=== PATIENT | female | born 1985 | race Caucasian/White ===

== ENCOUNTER 2020-12-17 19:10 | Emergency (ER) | payer MEDICAID, SELFPAY ==
[2020-12-17] VITALS (7 sets, daily range): BP systolic 102–152; BP diastolic 66–96; PULSE 77–103; RESP 16–18; TEMP 36.8; O2SAT 95–100; BMI 32.3
--- NOTE | 2020-12-17 21:28 | CTR_ITS ---
PROCEDURE INFORMATION: Exam: CT Head Without Contrast Exam date and time: 12/17/2020 9:28 PM Age: 35 years old Clinical indication: Headache; Migraine; Aura effect not specified; Does not respond to medication; Severity not specified; Patient HX: C/O R sided DONALD w photophobia and eye pain TECHNIQUE: Imaging protocol: Computed tomography of the head without contrast. Radiation optimization: All CT scans at this facility use at least one of these dose optimization techniques: automated exposure control; mA and/or kV adjustment per patient size (includes targeted exams where dose is matched to clinical indication); or iterative reconstruction. COMPARISON: No relevant prior studies available. RADIATION DOSE METRICS: Total DLP (mGy-cm): 908.01 FINDINGS: Brain: Normal. No hemorrhage. Unremarkable white matter. No mass effect. Cerebral ventricles: No ventriculomegaly. Paranasal sinuses: Paranasal sinus opacifications. Mastoid air cells: Visualized mastoid air cells are well aerated. Bones/joints: Unremarkable. No acute fracture. Soft tissues: Scattered rounded lesions in the subcutaneous fat measuring up to 14 mm with some calcifications suggestive of benign sebaceous cysts. CT/CT head wo con* [id number] IMPRESSION: Negative for intracranial hemorrhage or mass effect Radiation Dose CTDIVOL = (mGy): DLP = 908.01 (mGy-cm)
--- NOTE | 2020-12-17 21:54 | W.ED.HA ---
HPI - Headache General: Chief Complaint: Headache Stated Complaint: fever, n/v, migraine Time Seen by Provider: 12/17/20 21:11 History of Present Illness: HPI Narrative: 35-year-old female presents with 3 days of headache, behind her right eye. She reports she does not usually have headaches like this. She says she feels flushed, like she has a fever. She has been nauseated. She has not vomited. No diarrhea. No cough. She is light and sound sensitive. MD elicited complaint: headache and migraine Onset (ago): day(s) (3) Onset description: gradually Location: right, frontal, temporal and retro-orbital Severity: moderate Quality & Timing: throbbing Exacerbating factors: light and noise Relieving factors: nothing Context: occurred at rest Associated symptoms: Reports diaphoresis, fever(s) (Subjective), malaise, nausea and photophobia; Deny chest pain, confusion, cough, eye pain, eye redness, lightheadedness, loss of vision, neck stiffness, paresthesias, short of breath, syncope, vomiting or weakness Treatments prior to arrival: other (Aleve) Review of Systems Const: Reports: fever(s) (Subjective), malaise and diaphoresis Eyes: Denies: change in vision ENMT: Denies: throat pain, hoarseness or nasal congestion Card: Denies: chest pain, lightheadedness or syncope Resp: Denies: dyspnea, productive cough or non-productive cough GI: Reports: nausea; Denies: vomiting : Denies: difficulty voiding Neuro: Denies: confusion Physical Exam Const: GENERAL APPEARANCE: well developed ORIENTATION/CONSCIOUSNESS: Yes oriented to person, Yes oriented to place and Yes oriented to time HENMT: COMMON NORMALS: normocephalic, external ears normal and Normal external nose present HEAD & SCALP: normocephalic FACE & SINUS: normal facial exam NOSE: Normal external nose present and No nasal discharge present EXTERNAL EAR: Yes external ears normal Eye: COMMON NORMALS: Equal, round and reactive pupils present, EOMs intact bilaterally and conjunctivae normal EYELID: eyelids normal CONJUNCTIVA: Yes conjunctivae normal PUPIL: Yes Equal, round and reactive pupils present DIRECT OPHTHALMOSCOPY: Yes photophobia Neck/C-Spine: COMMON NORMALS: full ROM GENERAL: No tracheal deviation Chest: COMMONS NORMALS: normal inspection of the chest CHEST: No tenderness Resp: COMMON NORMALS: clear to auscultation bilaterally EFFORT & INSPECTION: No tachypneic, No respiratory distress, No retractions, No uses accessory muscles and No tracheal deviation AUSCULTATION: clear to auscultation bilaterally, no rhonchi, no wheezes and lung sounds not diminished Cardio: COMMON NORMALS: regular rate and regular rhythm RATE: regular rate RHYTHM: regular rhythm HEART SOUNDS: no murmurs PERIPHERAL PULSES: radial pulses present GI: INSPECTION: No abdominal distension AUSCULTATION: No Hyperactive bowel sounds present and No Hypoactive bowel sounds present PALPATION: No Guarding due to palpation present (GI) and No Rigid due to palpation PERCUSSION: no dullness to percussion and no tympanic to percussion Neuro: SENSORIUM/ORIENTATION: Yes oriented to person, Yes oriented to place and Yes oriented to time Psych: COMMON NORMALS: mental status grossly normal Skin: COMMON NORMALS: no rashes or lesions noted GENERAL SKIN EXAM: no rashes or lesions noted Course Vital Signs: Vital signs: Vital Signs Temperature 98.2 F 12/17/20 19:36 Pulse Rate 77 12/17/20 23:30 Respiratory Rate 16 12/17/20 23:30 Blood Pressure 102/66 12/17/20 23:30 Pulse Oximetry 97 12/17/20 23:30 MDM - Headache MDM Narrative: Medical decision making narrative: 35-year-old with a headache. She is neurologically intact. Headache improved after migraine cocktail here. White blood cell count is mildly elevated. Her hemoglobin is elevated as well. Other laboratory is benign. Head CT is nonacute. She will be swabbed for COVID-19, and discharged home. Lab Data: Labs: Lab Results 12/17/20 12/17/20 12/17/20 Range/Units 21:18 21:18 21:18 WBC 11.2 H (4.0-10.0) 10^3/ uL RBC 5.80 H (4.1-5.3) 10^6/u L Hgb 16.6 H (11.5-15.3) g/dL Hct 51.2 H (37.0-47.0) % MCV 88.3 (81-99) fL MCH 28.6 (28.0-34.0) pg MCHC 32.4 (30.0-36.0) g/dL RDW 12.4 (12.1-15.1) % Plt Count 379 (130-400) 10^3/c mm MPV 9.6 (7.4-10.4) fL Neut % (Auto) 58.9 % Lymph % (Auto) 33.2 % [place] % (Auto) 5.2 % Eos % (Auto) 1.9 % Baso % (Auto) 0.4 % Neut # (Auto) 6.62 (1.8-7.7) 10^3/u L Lymph # (Auto) 3.7 (0.8-4.8) 10^3/u L [place] # (Auto) 0.6 (0.2-0.9) 10^3/u L Eos # (Auto) 0.2 (0.0-0.8) 10^3/u L Baso # (Auto) 0.1 (0.0-0.1) 10^3/u L Nucleated RBC % (a uto) 0 % Nucleated RBCs # 0.0 /100WBC Sodium 135 L (136-145) mmol/L Potassium 4.4 (3.5-5.1) mmol/L Chloride 100 (98-107) mmol/L Carbon Dioxide 23 (22-29) mmol/L Anion Gap 16.4 (5-19) BUN 10 (6-20) mg/dL Creatinine 0.4 L (0.5-0.9) mg/dL GFR Calculation 183.8 H (90-130) mL/min Glucose 322 H (65-115) mg/dL Calculated Osmolal ity 291 (285-295) mOsm/k g Calcium 9.6 (8.5-10.5) mg/dL Total Bilirubin 0.2 (0.15-1.2) mg/dL AST 17 (0-32) U/L ALT 33 (0-33) U/L Alkaline Phosphata se 88 (35-105) IU/L C-Reactive Protein 29.6 H (0.0-4.9) mg/L Total Protein 8.1 (6.6-8.7) g/dL Albumin 4.4 (3.5-5.2) g/dL Globulin 3.7 (1.3-4.6) g/dL HCG, Qual Negative (Negative) Urine Color (Yellow) Urine Appearance (CLEAR) Urine pH (5-7) Ur Specific Gravit y (1.005-1.030) Urine Protein (Negative) Urine Glucose (UA) (Normal) Urine Ketones (Negative) Urine Blood (Negative) Urine Nitrate (Negative) Urine Bilirubin (Negative) Urine Urobilinogen (Negative) mg/dL Ur Leukocyte Andree ase (Negative) Urine RBC (0-2) /hpf Urine WBC (0-5) /hpf Ur Squamous Epith Cells (0-5) /hpf Amorphous Sediment Urine Bacteria (NONE) /hpf Urine Yeast /hpf Urine Opiates Scre en (Negative) ng/mL Ur Barbiturates Sc reen (Negative) ng/mL Ur Phencyclidine S crn (Negative) ng/mL Ur Amphetamines Sc reen (Negative) ng/mL U Benzodiazepines Scrn (Negative) ng/mL Urine Cocaine Scre en (Negative) ng/mL U Marijuana (THC) Screen (Negative) ng/mL 12/17/20 12/17/20 Range/Units 22:27 22:27 WBC (4.0-10.0) 10^3/ uL RBC (4.1-5.3) 10^6/u L Hgb (11.5-15.3) g/dL Hct (37.0-47.0) % MCV (81-99) fL MCH (28.0-34.0) pg MCHC (30.0-36.0) g/dL RDW (12.1-15.1) % Plt Count (130-400) 10^3/c mm MPV (7.4-10.4) fL Neut % (Auto) % Lymph % (Auto) % [place] % (Auto) % Eos % (Auto) % Baso % (Auto) % Neut # (Auto) (1.8-7.7) 10^3/u L Lymph # (Auto) (0.8-4.8) 10^3/u L [place] # (Auto) (0.2-0.9) 10^3/u L Eos # (Auto) (0.0-0.8) 10^3/u L Baso # (Auto) (0.0-0.1) 10^3/u L Nucleated RBC % (a uto) % Nucleated RBCs # /100WBC Sodium (136-145) mmol/L Potassium (3.5-5.1) mmol/L Chloride (98-107) mmol/L Carbon Dioxide (22-29) mmol/L Anion Gap (5-19) BUN (6-20) mg/dL Creatinine (0.5-0.9) mg/dL GFR Calculation (90-130) mL/min Glucose (65-115) mg/dL Calculated Osmolal ity (285-295) mOsm/k g Calcium (8.5-10.5) mg/dL Total Bilirubin (0.15-1.2) mg/dL AST (0-32) U/L ALT (0-33) U/L Alkaline Phosphata se (35-105) IU/L C-Reactive Protein (0.0-4.9) mg/L Total Protein (6.6-8.7) g/dL Albumin (3.5-5.2) g/dL Globulin (1.3-4.6) g/dL HCG, Qual (Negative) Urine Color Yellow (Yellow) Urine Appearance Sl cloudy A (CLEAR) Urine pH 5 (5-7) Ur Specific Gravit y 1.020 (1.005-1.030) Urine Protein 1+ H (Negative) Urine Glucose (UA) 4+ H (Normal) Urine Ketones 1+ H (Negative) Urine Blood Neg (Negative) Urine Nitrate Negative (Negative) Urine Bilirubin Neg (Negative) Urine Urobilinogen Norm (Negative) mg/dL Ur Leukocyte Andree ase Negative (Negative) Urine RBC 0-4 H (0-2) /hpf Urine WBC 0-4 H (0-5) /hpf Ur Squamous Epith Cells >100 H (0-5) /hpf Amorphous Sediment Not Reportable Urine Bacteria 3+ H (NONE) /hpf Urine Yeast 1+ H /hpf Urine Opiates Scre en Negative (Negative) ng/mL Ur Barbiturates Sc reen Negative (Negative) ng/mL Ur Phencyclidine S crn Negative (Negative) ng/mL Ur Amphetamines Sc reen Negative (Negative) ng/mL U Benzodiazepines Scrn Negative (Negative) ng/mL Urine Cocaine Scre en Negative (Negative) ng/mL U Marijuana (THC) Screen Negative (Negative) ng/mL Discharge Plan Discharge Patient Disposition: Home Clinical Impression: Headache Qualifiers: Headache type: unspecified Headache chronicity pattern: acute headache Intractability: not intractable Qualified Code(s): R51.9 - Headache, unspecified Condition: Stable Discharge Orders: Discharge ED (Routine); Ordered 12/17/20 Ordered By: Simba Huggins Referrals: Kasey Naqvi DO [Primary Care Provider] - 4-7 days Discharge Diet: Advance as tolerated Discharge Activity: Limit activity as instructed Patient Instructions: Acute Headache (ED) Activity Restrictions/Additional Instructions: Quarantine at home until you are COVID-19 PCR test results are back and negative. Drink plenty of liquids. Watch for fever, and treat with Tylenol or ibuprofen. Return for any concerning symptoms. Coding Level of Care Code ED Medical Collections for Rachelg Fwd Exam Comprehensive
[2020-12-17] MEDS: ketorolac 30 mg/mL INJ 15 MG IVP (21:55)
[2020-12-17] MEDS: ondansetron 2 mg/ML SDV 2 mL 4 MG IVP (21:57)
[2020-12-17] MEDS: valproic acid inj 500 MG in sodium chloride 0.9% 50 ML 55 MG IV (21:59)
[2020-12-17 22:07] LABS: Basophils # 0.1 10^3/uL (0.0-0.1); Basophils % 0.4 %; Eosinophils # 0.2 10^3/uL (0.0-0.8); Eosinophils % 1.9 %; HCG, Serum Qual Negative (Negative); Hematocrit 51.2 % (37.0-47.0); Hemoglobin 16.6 g/dL (11.5-15.3); Lymphocytes # 3.7 10^3/uL (0.8-4.8); Lymphocytes % 33.2 %; Mean Corpuscular HGB Conc 32.4 g/dL (30.0-36.0); Mean Corpuscular Hemoglobin 28.6 pg (28.0-34.0); Mean Corpuscular Volume 88.3 fL (81-99); Mean Platelet Volume 9.6 fL (7.4-10.4); Monocytes # 0.6 10^3/uL (0.2-0.9); Monocytes % 5.2 %; Neutrophils # 6.62 10^3/uL (1.8-7.7); Neutrophils % 58.9 %; Nucleated Red Blood Cells % 0 %; Platelet Count 379 10^3/cmm (130-400); Red Cell Distribution Width 12.4 % (12.1-15.1); White Blood Count 11.2 10^3/uL (4.0-10.0)
[2020-12-17 22:17] LABS: Alanine Aminotransferase 33 U/L (0-33); Albumin Level 4.4 g/dL (3.5-5.2); Alkaline Phosphatase 88 IU/L (35-105); Anion Gap 16.4 (5-19); Aspartate Amino Transferase 17 U/L (0-32); Blood Urea Nitrogen 10 mg/dL (6-20); C Reactive Protein 29.6 mg/L (0.0-4.9); Calcium 9.6 mg/dL (8.5-10.5); Carbon Dioxide 23 mmol/L (22-29); Chloride 100 mmol/L (98-107); Globulin 3.7 g/dL (1.3-4.6); Glomerular Filtration Rate 183.8 mL/min (90-130); Glucose 322 mg/dL (65-115); Osmolality Calculated 291 mOsm/kg (285-295); Potassium 4.4 mmol/L (3.5-5.1); Sodium 135 mmol/L (136-145); Total Bilirubin 0.2 mg/dL (0.15-1.2); Total Protein 8.1 g/dL (6.6-8.7)
[2020-12-17 22:54] LABS: Add Urine Microscopic? YES; Bilirubin Urine Neg (Negative); Blood Urine Neg (Negative); Glucose Urine UA 4+ (Normal); Ketones Urine 1+ (Negative); Leukocyte Esterase Urine Negative (Negative); Nitrate Urine Negative (Negative); Protein Urine 1+ (Negative); Urine Color Yellow (Yellow); Urobilinogen Urine Norm (Negative); pH Urine 5 (5-7)
[2020-12-17 22:56] LABS: Amphetamines Screen Urine Negative (Negative); Barbiturates Screen Urine Negative (Negative); Benzodiazepines Screen Urine Negative (Negative); Cocaine Screen Urine Negative (Negative); Opiate Screen Urine Negative (Negative); PCP Screen Urine Negative (Negative); THC Screen Urine Negative (Negative)
[2020-12-17 22:58] LABS: Add Urine Culture? No; Bacteria Urine 3+ /hpf; RBC Urine 0-4 /hpf (0-2); Squamous Epithelial Cell Urine >100 /hpf (0-5); WBC Urine 0-4 /hpf (0-5)
[2020-12-17] MEDS: sodium chloride 0.9% 1,000 ML 999 ML IV (23:00)
[2020-12-22 09:22] LABS: Quest SARS-CoV-2 RNA NOT DETECTED (NOT DETECTED)
== END 2020-12-17 23:37 | disposition home or self-care (01) ==
PROVIDERS: Emergency Provider Emergency Medicine; PCP Family Medicine
DX: R51.9 Headache, unspecified (principal); Z20.822 Contact with and (suspected) exposure to COVID-19
CPT/HCPCS: 70450; 80053; 80306; 81001; 84703; 85025; 86140; 87635; 96365; 96375; 99284; J1885; J2405; J7030

== ENCOUNTER → 2021-08-15 14:36 | Outpatient (BNVA) | payer MEDICAID, SELFPAY | PROVIDERS: PCP Family Medicine; Visit Provider Internal Medicine | DX: E11.65 Type 2 diabetes mellitus with hyperglycemia (principal); E78.00 Pure hypercholesterolemia, unspecified; Z82.49 Family history of ischemic heart disease and other diseases of the circulatory system; F17.210 Nicotine dependence, cigarettes, uncomplicated | CPT/HCPCS: 99204 ==

== ENCOUNTER 2021-08-18 10:07 | Outpatient (CLI) | payer MEDICAID, SELFPAY ==
[2021-08-18 11:03] LABS: Estmated Average Glucose 200; Hemoglobin A1C 8.6 % (4.0-6.0)
[2021-08-18 11:13] LABS: Alanine Aminotransferase 12 U/L (0-33); Albumin Level 4.2 g/dL (3.5-5.2); Alkaline Phosphatase 60 IU/L (35-105); Blood Urea Nitrogen 9 mg/dL (6-20); Calcium 9.4 mg/dL (8.5-10.5); Carbon Dioxide 20 mmol/L (22-29); Chloride 99 mmol/L (98-107); Chol HDL Ratio 6.35 mg/dL (0.0-4.40); Cholesterol 197 mg/dL (0-200); Globulin 3.3 g/dL (1.3-4.6); Glomerular Filtration Rate 256.2 mL/min (90-130); Glucose 211 mg/dL (65-115); HDL Cholesterol 31 mg/dL (60-100); LDL Cholesterol Calculated 136 mg/dL (50-129); LDL HDL Ratio 4.39 RATIO (0.00-3.22); Osmolality Calculated 279 mOsm/kg (285-295); Sodium 132 mmol/L (136-145); Total Bilirubin 0.2 mg/dL (0.15-1.2); Total Protein 7.5 g/dL (6.6-8.7); Triglycerides 152 mg/dL (0-150)
[2021-08-18 11:22] LABS: Anion Gap 17.3 (5-19); Aspartate Amino Transferase 15 U/L (0-32); Potassium 4.3 mmol/L (3.5-5.1)
[2021-08-22 20:33] LABS: Lipoprotein (a) 263 nmol/L (<75)
== END 2021-08-18 10:08 | disposition home or self-care (01) ==
PROVIDERS: PCP Family Medicine; Visit Provider Internal Medicine
DX: E11.65 Type 2 diabetes mellitus with hyperglycemia (principal); E78.00 Pure hypercholesterolemia, unspecified; Z82.49 Family history of ischemic heart disease and other diseases of the circulatory system
CPT/HCPCS: 80053; 80061; 83036; 83090; 83695; 86141

== ENCOUNTER → 2021-08-29 13:02 | Outpatient (BNVA) | payer MEDICAID, SELFPAY | PROVIDERS: PCP Family Medicine; Visit Provider Internal Medicine | DX: E11.65 Type 2 diabetes mellitus with hyperglycemia (principal); E78.00 Pure hypercholesterolemia, unspecified; Z82.49 Family history of ischemic heart disease and other diseases of the circulatory system; F17.200 Nicotine dependence, unspecified, uncomplicated | CPT/HCPCS: 99214 ==

== ENCOUNTER → 2021-11-30 10:55 | Outpatient (BNVA) | payer MEDICAID, SELFPAY | PROVIDERS: PCP Family Medicine; Visit Provider Family Medicine | DX: Z01.419 Encounter for gynecological examination (general) (routine) without abnormal findings (principal) | CPT/HCPCS: 87624 ==

== ENCOUNTER 2022-05-14 08:26 | Emergency (ER) | payer MEDICAID, SELFPAY ==
[2022-05-14 08:37] VITALS: BP 129/80; PULSE 96; RESP 16; TEMP 36.4; O2SAT 99; BMI 33.0
--- NOTE | 2022-05-14 09:05 | W.ED.ABDPA2 ---
HPI - Abdominal Pain General: Chief Complaint: Abdominal Pain Stated Complaint: abd pain Time Seen by Provider: 05/14/22 08:32 Source: patient Mode of arrival: ambulatory History of Present Illness: 36-year-old female presents emergency room planing of generalized abdominal discomfort nausea and vomiting with a few loose stools. She had some low-grade fever yesterday. She she has some discomfort with urination but has not had a lot of frequency. No flank pain. She denies any hematochezia melena hematemesis or coffee-ground emesis. MD elicited complaint: abdominal pain Onset (ago): day(s) Pain Consistency: constant Location: Suprapubic Severity: moderate Quality: cramping Radiation: none Migration to: no migration Exacerbating factors: other (Urination) Relieving factors: nothing Associated Symptoms: Reports GI cramping, diarrhea, dysuria, poor appetite and vomiting; Denies anorexia, belching, bloating, change in bowel habits, change in stool character, chills, coffee ground emesis, constipation, dyspepsia, excessive flatus, fever(s), heartburn, hematochezia, hematuria, hematemesis, fecal incontinence, loose stools, melena, nausea and syncope Review of Systems Const: Reports: change in appetite and fatigue; Denies: fever(s), chills or malaise ENMT: Denies: throat pain, ear or mastoid pain, nasal discharge or nasal congestion Card: Denies: chest pain, palpitations, irregular heart rhythm, edema or syncope Resp: Denies: dyspnea, productive cough or non-productive cough GI: Reports: abdominal pain, vomiting, diarrhea and GI cramping; Denies: nausea, hematemesis, coffee ground emesis, heartburn, constipation, bloating, belching, excessive flatus, fecal incontinence, change in bowel habits, change in stool character, hematochezia or melena : Reports: dysuria, urinary frequency and urinary urgency; Denies: flank pain or hematuria Skin/Breast: Denies: rash or pruritus PFSH ED PFSH: Medical History delivery delivered Diabetes type 2, uncontrolled High cholesterol Osteoarthritis of left knee Surgical History H/O tubal ligation History of delivery x 2 Family History Father Diabetes Heart disease Mother Diabetes COPD (chronic obstructive pulmonary disease) Emphysema lung Heart disease Kidney failure Arthritis Social History Smoking and tobacco status: current every day smoker Quit status (tobacco): not considering quitting Second hand smoke exposure: No Smoking risk assessment/counseling performed?: Yes Desire information about alcohol rehabilitation?: No Counseling given: No Desire information about substance/drug rehabilitation?: No Counseling given: No Adopted: No Caregiver/support person: No Lives independently: Yes Household members: children Housing: House Marital status: Number of children: 2 Highest education level completed: 9th Grade service: No Current occupational status: employed History of recent travel: No Physical Exam Const: GENERAL APPEARANCE: cooperative and comfortable ORIENTATION/CONSCIOUSNESS: Yes awake, Yes oriented to person, Yes oriented to place and Yes oriented to time Resp: COMMON NORMALS: normal respiratory effort, No retractions, No use of accessory muscles and clear to auscultation bilaterally AUSCULTATION: clear to auscultation bilaterally Cardio: COMMON NORMALS: regular rate, regular rhythm and No murmurs present (Cardio) RATE: regular rate RHYTHM: regular rhythm GI: COMMON NORMALS: No hepatosplenomegaly present AUSCULTATION: Yes normoactive bowel sounds PALPATION: Yes Tenderness to palpation present (GI) (Suprapubic), No Guarding due to palpation present (GI) and Yes No hepatosplenomegaly present : COMMON NORMALS: Yes no CVA tenderness BLADDER/KIDNEY EXAM: Yes no CVA tenderness Back/Pelvis: COMMON NORMALS: no CVA tenderness Extremity: COMMON NORMALS: normal to inspection, capillary refill normal, no clubbing, cyanosis or edema, no calf tenderness and no pedal edema Neuro: SENSORIUM/ORIENTATION: Yes oriented to person, Yes oriented to place and Yes oriented to time Skin: COMMON NORMALS: no rashes or lesions noted GENERAL SKIN EXAM: no rashes or lesions noted Course Vital Signs: Vital signs: Vital Signs Temperature 97.5 F L 05/14/22 08:37 Pulse Rate 93 05/14/22 11:03 Respiratory Rate 14 05/14/22 11:03 Blood Pressure 129/76 05/14/22 11:03 Pulse Oximetry 99 05/14/22 11:03 Oxygen Delivery Me thod 05/14/22 11:03 MDM - Abdominal Pain Medical Decision Making CT shows colitis. White count is 10 2 she has a mild hyponatremia discharge patient home clinical diet 24 to 48 hours and advance as tolerated started on Cipro and Flagyl. Lab Data 05/14/22 10:10 05/14/22 10:10 Labs/Radiology: Radiology Impressions Abdomen/Pelvis CT 05/14/22 10:32 IMPRESSION: 1. Findings suspicious for infectious or inflammatory colitis involving the RIGHT colon and transverse colon with mild thickening and surrounding inflammatory changes. Findings can also be seen with inflammatory bowel disease. This slightly involves the distal terminal ilium and ileocecal valve 2. Descending LEFT colon and sigmoid colon appear normal. 3. A few prominent lymph nodes along the mesenteric root and central mesentery likely reactive. 4. Prominent gallstone in the gallbladder measuring 2.7 CM. No gallbladder wall thickening or pericholecystic fluid. 5. No hydronephrosis in either kidney. 6. 2.9 cm RIGHT ovarian cyst likely physiologic. 7. Mild disc bulging L4-L5 with mild central canal stenosis. Laboratory Results WBC 10.2 10^3/uL (4.0-10.0) H 05/14/22 10:10 RBC 5.18 10^6/uL (4.1-5.3) 05/14/22 10:10 Hgb 14.7 g/dL (11.5-15.3) 05/14/22 10:10 Hct 44.5 % (37.0-47.0) 05/14/22 10:10 MCV 85.9 fl (81-99) 05/14/22 10:10 MCH 28.4 pg (28.0-34.0) 05/14/22 10:10 MCHC 33.0 g/dL (30.0-36.0) 05/14/22 10:10 RDW 12.9 % (12.1-15.1) 05/14/22 10:10 Plt Count 298 10^3/cmm (130-400) 05/14/22 10:10 MPV 9.1 fL (7.4-10.4) 05/14/22 10:10 Neut % (Auto) 80.4 % 05/14/22 10:10 Lymph % (Auto) 13.0 % 05/14/22 10:10 [place] % (Auto) 5.6 % 05/14/22 10:10 Eos % (Auto) 0.3 % 05/14/22 10:10 Baso % (Auto) 0.3 % 05/14/22 10:10 Neut # (Auto) 8.20 10^3/uL (1.8-7.7) H 05/14/22 10:10 Lymph # (Auto) 1.3 10^3/uL (0.8-4.8) 05/14/22 10:10 [place] # (Auto) 0.6 10^3/uL (0.2-0.9) 05/14/22 10:10 Eos # (Auto) 0.0 10^3/uL (0.0-0.8) 05/14/22 10:10 Baso # (Auto) 0.0 10^3/uL (0.0-0.1) 05/14/22 10:10 Nucleated RBC % (auto) 0 % 05/14/22 10:10 Nucleated RBCs # 0.0 /100WBC 05/14/22 10:10 Sodium 128 mmol/L (136-145) L 05/14/22 10:10 Potassium 3.6 mmol/L (3.5-5.1) 05/14/22 10:10 Chloride 95 mmol/L (98-107) L 05/14/22 10:10 Carbon Dioxide 22 mmol/L (22-29) 05/14/22 10:10 Anion Gap 14.6 (5-19) 05/14/22 10:10 BUN 7 mg/dL (6-20) 05/14/22 10:10 Creatinine 0.2 mg/dL (0.5-0.9) L 05/14/22 10:10 GFR Calculation 406.6 mL/min (90-130) H 05/14/22 10:10 Glucose 209 mg/dL (65-115) H 05/14/22 10:10 Calculated Osmolality 270 mOsm/kg (285-295) L 05/14/22 10:10 Calcium 9.0 mg/dL (8.5-10.5) 05/14/22 10:10 Total Bilirubin 0.3 mg/dL (0.15-1.2) 05/14/22 10:10 AST 11 U/L (0-32) 05/14/22 10:10 ALT 15 U/L (0-33) 05/14/22 10:10 Alkaline Phosphatase 65 U/L (35-105) 05/14/22 10:10 Total Protein 7.3 g/dL (6.6-8.7) 05/14/22 10:10 Albumin 3.9 g/dL (3.5-5.2) 05/14/22 10:10 Globulin 3.4 g/dL (1.3-4.6) 05/14/22 10:10 HCG, Qual Negative (Negative) 05/14/22 11:06 Urine Color Yellow (Yellow) 05/14/22 11:25 Urine Appearance Clear (CLEAR) 05/14/22 11:25 Urine pH 5 (5-7) 05/14/22 11:25 Ur Specific [place] 1.025 (1.005-1.030) 05/14/22 11:25 Urine Protein Neg (Negative) 05/14/22 11:25 Urine Glucose (UA) Norm (Normal) 05/14/22 11:25 Urine Ketones Negative (Negative) 05/14/22 11:25 Urine Blood Neg (Negative) 05/14/22 11:25 Urine Nitrate Negative (Negative) 05/14/22 11:25 Urine Bilirubin Neg (Negative) 05/14/22 11:25 Urine Urobilinogen Norm mg/dL (Negative) 05/14/22 11:25 Ur Leukocyte Esterase Negative (Negative) 05/14/22 11:25 Discharge Plan Discharge Patient Disposition: Home Clinical Impression: Colitis Condition: Stable Prescriptions: New Cipro 500 mg tablet 500 mg PO BID Qty: 20 0RF metronidazole 500 mg tablet 500 mg PO Q12H 10 Days Qty: 20 0RF ondansetron HCl 4 mg tablet 4 mg PO Q6H PRN (Reason: nausea and vomiting) Qty: 20 0RF No Action (DME) blood-glucose meter Misc See Rx Instructions .Route Qty: 1 0RF Rx Instructions: Check BS 2 times a day. (DME) Blood Glucose Test Strip See Rx Instructions .Route Qty: 400 3RF Rx Instructions: Check BS 2 times a day. Discharge Orders: Discharge ED (Routine); Ordered 05/14/22 Ordered By: Peña De La Garza Referrals: Kasey Naqvi DO [Primary Care Provider] - Discharge Diet: Clear Liquid Discharge Activity: Increase activity as tolerated Activity Restrictions/Additional Instructions: You were seen today for abdominal pain. CT showed colitis which is inflammation of the colon. We are starting you on ciprofloxacin and metronidazole twice daily for 10 days for this. Recommend clear liquid diet for the next 24 to 48 hours and advance as tolerated. Follow-up with your primary care doctor in the next 10 to 14 days. Coding Level of Care Code ED Motorcycle Sales Associate for Chg Fwd Exam Detailed
[2022-05-14 09:17] VITALS: BP 135/87; PULSE 103; RESP 14; O2SAT 95
[2022-05-14] MEDS: sodium chloride 0.9% 1,000 ML 999 ML IV (10:16)
[2022-05-14] MEDS: ondansetron 2 mg/ML SDV 2 mL 4 MG IVP (10:17)
[2022-05-14 10:22] LABS: Basophils % 0.3 %; Eosinophils % 0.3 %; Hematocrit 44.5 % (37.0-47.0); Hemoglobin 14.7 g/dL (11.5-15.3); Lymphocytes # 1.3 10^3/uL (0.8-4.8); Mean Corpuscular Hemoglobin 28.4 pg (28.0-34.0); Mean Corpuscular Volume 85.9 fl (81-99); Mean Platelet Volume 9.1 fL (7.4-10.4); Monocytes # 0.6 10^3/uL (0.2-0.9); Monocytes % 5.6 %; Neutrophils % 80.4 %; Nucleated Red Blood Cells % 0 %; Platelet Count 298 10^3/cmm (130-400); Red Blood Count 5.18 10^6/uL (4.1-5.3); Red Cell Distribution Width 12.9 % (12.1-15.1); White Blood Count 10.2 10^3/uL (4.0-10.0)
--- NOTE | 2022-05-14 10:32 | CT_ITS ---
WS: [id number] CT ABDOMEN PELVIS TECHNIQUE: Noncontrast CT of the abdomen and pelvis with coronal and sagittal reformatted images. CLINICAL INFORMATION: Abdominal pain COMPARISON: None. DLP: 889.[address] scans at [facility] use at least one of these dose optimization techniques: automated e xposure control; mA and/or kV adjustment per patient size (includes targeted exams where dose is matc hed to clinical indication); or iterative reconstruction. FINDINGS:. Mild colonic wall thickening with inflammatory stranding and edema about the transverse co dmitriy and RIGHT colon suspicious for infectious or inflammatory colitis. Descending LEFT colon and sigm oid colon have a normal appearance. Inflammatory stranding and thickening extends the ileocecal valve Normal appendix in the RIGHT lower quadrant. No evidence of acute appendicitis. RIGHT ovarian cyst me asuring 2.9 CM. A few prominent lymph nodes along the mesenteric root likely reactive. Bibasilar atelectasis. Normal liver. Prominent gallstone in the gallbladder measuring 2.7 CM. Splenic artery calcification. Small splenule. Adrenal glands are normal. No hydronephrosis in either kidney. Normal caliber abdominal aorta. No free fluid in the abdomen or pelvis CT/CT abdomen pelvis wo con [id number] IMPRESSION: 1. Findings suspicious for infectious or inflammatory colitis involving the RI GHT colon and transverse colon with mild thickening and surrounding inflammator y changes. Findings can also be seen with inflammatory bowel disease. This slig htly involves the distal terminal ilium and ileocecal valve 2. Descending LEFT colon and sigmoid colon appear normal. 3. A few prominent lymph nodes along the mesenteric root and central mesentery likely reactive. 4. Prominent gallstone in the gallbladder measuring 2.7 CM. No gallbladder wal l thickening or pericholecystic fluid. 5. No hydronephrosis in either kidney. 6. 2.9 cm RIGHT ovarian cyst likely physiologic. 7. Mild disc bulging L4-L5 with mild central canal stenosis.
[2022-05-14 10:41] LABS: Alanine Aminotransferase 15 U/L (0-33); Albumin Level 3.9 g/dL (3.5-5.2); Alkaline Phosphatase 65 U/L (35-105); Anion Gap 14.6 (5-19); Aspartate Amino Transferase 11 U/L (0-32); Blood Urea Nitrogen 7 mg/dL (6-20); Carbon Dioxide 22 mmol/L (22-29); Chloride 95 mmol/L (98-107); Globulin 3.4 g/dL (1.3-4.6); Glomerular Filtration Rate 406.6 mL/min (90-130); Glucose 209 mg/dL (65-115); Osmolality Calculated 270 mOsm/kg (285-295); Potassium 3.6 mmol/L (3.5-5.1); Sodium 128 mmol/L (136-145); Total Bilirubin 0.3 mg/dL (0.15-1.2); Total Protein 7.3 g/dL (6.6-8.7)
[2022-05-14 11:03] VITALS: BP 129/76; PULSE 93; RESP 14; O2SAT 99
[2022-05-14 11:25] LABS: HCG, Serum Qual Negative (Negative)
[2022-05-14 11:27] LABS: Add Urine Microscopic? NO; Charge for UA Resulting for Rev
[2022-05-14 11:31] LABS: Bilirubin Urine Neg (Negative); Blood Urine Neg (Negative); Glucose Urine UA Norm (Normal); Ketones Urine Negative (Negative); Leukocyte Esterase Urine Negative (Negative); Nitrate Urine Negative (Negative); Protein Urine Neg (Negative); Specific Gravity, Urine 1.025 (1.005-1.030); Urine Appearance Clear (CLEAR); Urine Color Yellow (Yellow); Urobilinogen Urine Norm (Negative); pH Urine 5 (5-7)
== END 2022-05-14 11:55 | disposition home or self-care (01) ==
PROVIDERS: Emergency Provider Family Medicine; PCP Family Medicine
DX: K52.9 Noninfective gastroenteritis and colitis, unspecified (principal)
CPT/HCPCS: 74176; 80053; 81003; 84703; 85025; 96361; 96374; 99285; J2405; J7030

== ENCOUNTER 2022-07-10 03:55 | Inpatient (IN) | payer MEDICAID, SELFPAY ==
[2022-07-10] VITALS (33 sets, daily range): BP systolic 91–126; BP diastolic 51–83; PULSE 66–89; RESP 10–27; TEMP 36.6–36.8; O2SAT 94–98; BMI 33.2; BMI 34.0
--- NOTE | 2022-07-10 03:58 | ECG_ITS ---
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 Measurements Intervals [place] Rate: 69 P: 160 WI: 152 QRS: 173 QRSD: 94 T: 159 QT: 395 QTc: 425 Interpretive Statements SINUS RHYTHM ARM LEADS REVERSED [INVERTED P AND QRS IN I] ST ELEVATION, CONSIDER ANTERIOR INJURY [MARKED ST ELEVATION W/O NORMALLY INFLECTED T-WAVE IN V2-V5] ACUTE DE No previous ECG available for comparison Electronically Signed On 07-10-2022 7:39:[address]MIN[address]RATIVE ENGINEER by Michael Gillette M.D. [id number]
--- NOTE | 2022-07-10 04:00 | ED_ITS ---
HPI - Chest Pain General: Chief Complaint: Chest Pain Stated Complaint: STEMI Time Seen by Provider: 07/10/22 03:56 Source: patient and EMS Mode of arrival: EMS Limitations: no limitations History of Present Illness: 36-year-old female is here by EMS on a STEMI alert she has been having some chest pain since midnight states been a pressure pain in the center of her chest she has had some nausea she did vomit as well denies any shortness of breath she given nitro and aspirin in route her pain has imp roved still 3 out of 10 she denies any cough or fever. Associated symptoms: Deny abdominal pain, dyspnea, fever(s), nausea or vomiting Review of Systems Const: Denies: fever(s), chills, body aches or change in appetite Eyes: Denies: blurry vision or eye discomfort ENMT: Denies: throat pain or dental pain Card: Reports: chest pain Resp: Denies: dyspnea GI: Denies: abdominal pain, nausea, vomiting or diarrhea : Denies: dysuria Musc: Denies: neck pain or back pain Skin/Breast: Denies: rash Neuro: Denies: headache(s) Psych: Denies: depression Georges/Lymph: Denies: easy bruising All/Imm: Denies: urticaria PFSH ED PFSH: Medical History delivery delivered Diabetes type 2, uncontrolled High cholesterol Osteoarthritis of left knee Surgical History H/O tubal ligation History of delivery x 2 Family History Father Diabetes Heart disease Mother Diabetes COPD (chronic obstructive pulmonary disease) Emphysema lung Heart disease Kidney failure Arthritis Social History (Updated 07/10/22 @ 04:01 by Caro Cheatham MD) Smoking and tobacco status: current every day smoker Physical Exam Const: COMMON NORMALS: patient oriented x3 GENERAL APPEARANCE: in distress and ill appearing HENMT: COMMON NORMALS: normocephalic and atraumatic HEAD & SCALP: normocephalic and atraumatic Eye: COMMON NORMALS: Equal, round and reactive pupils present and EOMs intact bilaterally PUPIL: Yes Equal, round and reactive pupils present Neck/C-Spine: COMMON NORMALS: full ROM and supple Chest: COMMONS NORMALS: normal inspection of the chest and normal palpation of entire chest wall Resp: COMMON NORMALS: normal respiratory effort, No retractions, No use of accessory muscles and clear to auscultation bilaterally AUSCULTATION: clear to auscultation bilaterally Cardio: COMMON NORMALS: regular rate, regular rhythm and No murmurs present (Cardio) RATE: regular rate RHYTHM: regular rhythm GI: COMMON NORMALS: Normal to inspection, nondistended, normoactive bowel sounds present, Soft to palpation, non-tender and no masses PALPATION: Yes Soft to palpation Extremity: COMMON NORMALS: normal to inspection and full ROM Neuro: COMMON NORMALS: patient oriented x3, moves all extremities and no focal motor deficits Psych: COMMON NORMALS: mental status grossly normal, Normal thought process present and cooperative THOUGHT PROCESS: Normal thought process present Skin: COMMON NORMALS: no rashes or lesions noted and no wounds GENERAL SKIN EXAM: no rashes or lesions noted MDM - Chest Pain Medical Decision Making Patient presents here with chest pain EKG does show ST elevation consistent with a STEMI Senior Asic Design Engineer was activated by EMS in the field patient's pain has improved here we will give her Plavix and heparin and go to the Senior Asic Design Engineer. Lab Data 07/10/22 04:04 07/10/22 04:04 Laboratory Results WBC 19.4 10^3/uL (4.0-10.0) H 07/10/22 04:04 RBC 5.12 10^6/uL (4.1-5.3) 07/10/22 04:04 Hgb 14.5 g/dL (11.5-15.3) 07/10/22 04:04 Hct 44.9 % (37.0-47.0) 07/10/22 04:04 MCV 87.7 fl (81-99) 07/10/22 04:04 MCH 28.3 pg (28.0-34.0) 07/10/22 04:04 MCHC 32.3 g/dL (30.0-36.0) 07/10/22 04:04 RDW 12.5 % (12.1-15.1) 07/10/22 04:04 Plt Count 355 10^3/cmm (130-400) 07/10/22 04:04 MPV 9.2 fL (7.4-10.4) 07/10/22 04:04 Neut % (Auto) 69.8 % 07/10/22 04:04 Lymph % (Auto) 24.3 % 07/10/22 04:04 [place] % (Auto) 4.5 % 07/10/22 04:04 Eos % (Auto) 0.6 % 07/10/22 04:04 Baso % (Auto) 0.4 % 07/10/22 04:04 Neut # (Auto) 13.50 10^3/uL (1.8-7.7) H 07/10/22 04:04 Lymph # (Auto) 4.7 10^3/uL (0.8-4.8) 07/10/22 04:04 [place] # (Auto) 0.9 10^3/uL (0.2-0.9) 07/10/22 04:04 Eos # (Auto) 0.1 10^3/uL (0.0-0.8) 07/10/22 04:04 Baso # (Auto) 0.1 10^3/uL (0.0-0.1) 07/10/22 04:04 Nucleated RBC % (auto) 0 % 07/10/22 04:04 Nucleated RBCs # 0.0 /100WBC 07/10/22 04:04 EKG Data EKG 1: I personally reviewed and interpreted this EKG as follows: EKG interpretation date: 07/10/22 EKG interpretation time: 03:58 Interpretation: nsr hr 69 st elevation in v2 and v3 Critical Care Time Critical Care Time: Critical Care Time: Yes Total Critical Care Time: 35 Attestation: The high probability of a clinically significant, sudden or life threatening deterioration of the patient's cv system(s) required my full and direct attention, intervention and personal management. The critical care time is as shown. This time is in addition to time spent performing any reported procedures but includes the following: [x] Data and vital sign review and interpretation [x] Patient assessment, examination and intervention [x] Documentation [x] Medication orders and management Discharge Plan Discharge Patient Disposition: Admitted As Inpatient Clinical Impression: ST elevation myocardial infarction (STEMI) Coding Level of Care Code ED Chucking Machine Set Up Operator [facility] Fwd Exam Comprehensive
[2022-07-10] MEDS: sodium chloride 0.9% 1,000 ML 999 ML IV (04:05)
--- NOTE | 2022-07-10 04:06 | XRR_ITS ---
PROCEDURE INFORMATION: Exam: XR Chest Exam date and time: 07/10/2022 4:03 AM Age: 36 years old Clinical indication: Chest pressure; Patient HX: Stemi alert. C/O chest pain with prominent st elevation on ekg. TECHNIQUE: Imaging protocol: Radiologic exam of the chest. Views: 1 view. COMPARISON: CT abdomen pelvis wo con [id number] 05/14/2022 10:39 AM FINDINGS: Lungs: Mild lung base atelectasis likely. No consolidation. Pleural spaces: Unremarkable. No pleural effusion. No pneumothorax. Heart/Mediastinum: Unremarkable. No cardiomegaly. Bones/joints: Unremarkable. XR/XR chest 1V portable [id number] IMPRESSION: 1. No acute findings. 2. No consolidation or overt CHF.
[2022-07-10] MEDS: heparin 5,000 unit/mL INJ 1 mL 4000 UNIT IVP (04:07)
[2022-07-10] MEDS: clopidogrel 300 mg Tablet PO ×2 (04:09→04:17)
--- NOTE | 2022-07-10 04:09 | XACV_ITS ---
Exam Room: [place] [address] Ht: 168 cm Wt: 93 kg BSA: 2.12 m2 Gender: Female : 1985 Exam Priority: Routine Procedure(s): Procedure Description: Diagnostic procedure Procedure Description: PCI procedure Procedure Description: Left Heart Catheterization Procedure Description: Coronary IVUS Procedure Description: Drug Eluting Coronary Stent Procedure Description: PTCA Procedure Description: Miscellaneous Procedure Description: ACT Procedure Description: Coronary Angiography Diagnostic Cath Status: Emergency Diagnostic Findings * INDICATION: 36 year old female with past medical history of diabetes, smoking, family history of premature coronary artery disease was presented to the hospital with 3 to 4 hours of substernal severe chest pain. It radiates to the left arm. EKG is consistent with anterior wall ST elevation [place]. Cardiac Surgical Training Specialist was emergently activated. Plan for coronary angiogram with possible percutaneous coronary intervention. * Left Main has no significant disease. * Right Coronary Artery severe diffuse disease in the mid to distal vessel, no amenable to intervention. PLV branch is totally occluded with collateral blood flow from left system.. * Mid Left Anterior Descending: severe 90% stenosis, PARAS: 3 flow. Plaque rupture and thrombus can be visualized. The second diagonal artery is totally occluded.. * Mid Circumflex: moderate 60% stenosis, PARAS: 3 flow. * Coronary angiography shows right dominance. PCI Status: Emergency PCI Indication: STEMI - Immediate PCI for STEMI Interventional Findings * Procedure Detail: We engaged left main artery with CLS 3.0 guide catheter. IV heparin was administered to maintain ACT above 250 S. 0.014 run-through guidewire was used to cross mid LAD severe stenosis and was put in distal vessel. Thrombotic stenosis was predilated with 2.5 x 12 mm semicompliant balloon. This was followed by placement of 2.75 x 18 mm resolute Junior drug-eluting stent. At the distal edge of stent there was a significant stepdown noted. We used IVUS to confirm no significant dissection and good stent expansion. At this time final angiogram was performed that showed excellent stent expansion and PARAS-3 flow. We briefly attempted to cross the diagonal artery total occlusion with wire however it was chronic total occlusion and wire could not be crossed. Further attempts were aborted. Guidewire and guide catheter were removed. Patient left the Surgical Training Specialist in a stable condition. * Mid Left Anterior Descendin% stenosis treated with a AB TREK 2.50X12 RX BALLOON, and MDT R SANDEE 2.75X18 BIRDIE. 0% residual stenosis, PARAS: 3 flow. Conclusions 1. Severe mid LAD stenosis with plaque rupture and thrombus 2. s/p successful revascularization with BIRDIE x1.. 3. Mid Left Anterior Descending was treated with a Balloon, and Drug Eluting Stent. Recommendations * Transfer to ICU. * Dual antiplatelet therapy with aspirin and Plavix. * High intensity statin therapy. * Strict diabetes control. * Outpatient cardiology follow-up in 4 weeks. Interventional RX Recommendation: PCI w/o planned CABG Diagnostic RX Recommendation: PCI w/o planned CABG Anticoagulation: Heparin Pressures Phase:Rest AO : 103 / 68 ( 85 ) @ 4:40:00 AM 113 / 76 ( 92 ) @ 4:47:00 AM 121 / 76 ( 95 ) @ 4:52:00 AM 106 / 62 ( 82 ) @ 4:58:00 AM 105 / 72 ( 88 ) @ 5:07:00 AM 105 / 25 ( 54 ) @ 5:10:00 AM 110 / 70 ( 88 ) @ 5:12:00 AM LV : 125 / 4 / 13 @ 5:11:00 AM 136 / 0 / 20 @ 5:12:00 AM Valves Phase:DefaultPhase AV : 27.0 @ 5:51:43 AM 27.0 @ 5:51:43 AM AV Mean Gradient: 11.0 @ 5:51:43 AM 11.0 @ 5:51:43 AM Clinical Evaluation EBL: 5mL-10mL Procedural Details Admit Source: Emergency department. Procedure started. Current diagnosis: STEMI. PERRLA. Strong, equal hand entry level software engineer bilaterally. Lungs clear x 5 lobes. IV Site on Arrival: 20 gauge in the right forearm. IV Site on Arrival: 18 gauge in the left anticubital. IV Fluids: 0.9% NaCl at KVO. 10 mL infused prior to labor mediator. Pre Procedural Pulses: right radial was 1+. Oxygen started at 2liters/min via nasal canula. right radial was prepped with chloroprep then draped in the usual sterile fashion. right groin was prepped with chloroprep then draped in the usual sterile fashion. Physician notified. Baseline sample Acquired. HR: 83 BPM. Lidocaine 1% infiltrated to the right radial. Arterial access obtained. A 5 indian TIG catheter in over wire. Multiple views taken of left coronary artery. Catheter redirected to the RCA. Multiple views taken of right coronary artery. Catheter removed over the exchange wire. 6 indian CLS 3 guide catheter was inserted over the wire. [place] guidewire was advanced through the guide catheter to lesion in the mid LAD. Balloon inserted to lesion in the mid LAD. Inflation number : 1 A TREK 2.50X12 RX BALLOON was prepped and advanced across the Mid LAD , then inflated to 12 SOTERO for 0:22 seconds. Results checked. Balloon out. Inflation Number : 2 A THOMAS Lugo SANDEE 2.75X18 BIRDIE -Lot Number# [id number] exp date 09/14/2024 was prepped and advanced across the Mid LAD. The stent was deployed at 12 SOTERO for 0:18 seconds. Results checked. Stent balloon out over wire. IVUS catheter in over wire. IVUS run of the LAD. IVUS catheter out. Results checked. ACT drawn. Results 270 seconds. Therapeutic limits - pre-heparin administration 90-150 seconds and monitoring heparin during a vascular procedure >250 seconds. [place] guidewire was advanced through the guide catheter to lesion in the diaganol. Unable to cross lesion, guidewire removed. A 5 indian TIG catheter in over wire. Multiple views taken of right coronary artery. EDP Sample taken: LV 125/4,13; HR: 103 BPM; SpO2: 95%. Pullback taken: LV 136/0,20; AO 110/70(88); Mean: 11mmHg, Peak to Peak: 27mmHg, SEP: 23sec/min; HR: 91 BPM; SpO2: 95%. Catheter out. Wire out. ACT drawn. Results 192 seconds. Therapeutic limits - pre-heparin administration 90-150 seconds and monitoring heparin during a vascular procedure >250 seconds. A TR Band was successful obtaining hemostatsis at the Right Radial artery insertion site. Post Procedure: Pulses reassessed and unchanged. PERRLA. Strong, equal hand entry level software engineer bilaterally. No VTE prophylaxis required. Post-op diagnosis: thrombus of the mid LAD, S/P one stent. Medication's Wasted: Other = 1 mg versed. Medication's Wasted: Heparin = 2000 units. Medication's Wasted: Nitro = 49.6 mg. Total IV fluids: 101 mL. Complications: none. Estimated blood loss: 5mL-10mL. Responsiveness - Normal response to verbal stimuli; alert and oriented, PERRLA. Airway - Unaffected, no intervention required; spontaneous ventilation. Circulation: W/N/L, pulses unchanged. Nausea/Vomiting: No. Procedure completed. Patient transferred by wheelchair to CPRU. Vital chart was stopped. Vital chart was stopped. Access Site Site: Right Radial artery Sheath Size: 6 Fr Hemostasis Method: TR Band Hemostasis Success: Successful Procedure Medications Start: 4:34 AM Stop: 4:34 AM Medication: Versed Amount: 1 mg Route: I.V. Start: 4:34 AM Stop: 4:34 AM Medication: Fentanyl Amount: 50 mcg Route: I.V. Start: 4:37 AM Stop: 4:37 AM Medication: Nitrogylcerin Amount: 200 mcg Route: I.A. Start: 4:37 AM Stop: 4:37 AM Medication: Versed Amount: 1 mg Route: I.V. Start: 4:42 AM Stop: 4:42 AM Medication: Heparin Amount: 5000 units Start: 4:52 AM Stop: 4:52 AM Medication: Heparin Amount: 2000 units Start: 4:56 AM Stop: 4:56 AM Medication: Nitrogylcerin Amount: 200 mcg Route: I.C. Start: 5:04 AM Stop: 5:04 AM Medication: Fentanyl Amount: 50 mcg Route: I.V. Start: 5:05 AM Stop: 5:05 AM Medication: Nitrogylcerin Amount: 200 mcg Route: I.A. Start: 5:05 AM Stop: 5:05 AM Medication: Heparin Amount: 1000 units Start: 5:06 AM Stop: 5:06 AM Medication: Versed Amount: 1 mg Route: I.V. Start: 5:17 AM Stop: 5:17 AM Medication: Heparin Amount: 2000 units I, the attending physician, have reviewed and verified all procedure medications. Yes, all medications given per verbal order History/Risk Factors Tobacco Use: Current/Recent(w/in 1 year) Report Signatures Finalized by Michael Gillette MD on 07/18/2022 12:07 PM
[2022-07-10 04:10] LABS: Basophils # 0.1 10^3/uL (0.0-0.1); Basophils % 0.4 %; Eosinophils # 0.1 10^3/uL (0.0-0.8); Eosinophils % 0.6 %; Hematocrit 44.9 % (37.0-47.0); Hemoglobin 14.5 g/dL (11.5-15.3); Lymphocytes # 4.7 10^3/uL (0.8-4.8); Lymphocytes % 24.3 %; Mean Corpuscular HGB Conc 32.3 g/dL (30.0-36.0); Mean Corpuscular Hemoglobin 28.3 pg (28.0-34.0); Mean Corpuscular Volume 87.7 fl (81-99); Mean Platelet Volume 9.2 fL (7.4-10.4); Monocytes # 0.9 10^3/uL (0.2-0.9); Monocytes % 4.5 %; Neutrophils % 69.8 %; Nucleated Red Blood Cells % 0 %; Platelet Count 355 10^3/cmm (130-400); Red Blood Count 5.12 10^6/uL (4.1-5.3); Red Cell Distribution Width 12.5 % (12.1-15.1); White Blood Count 19.4 10^3/uL (4.0-10.0)
[2022-07-10] MEDS: sodium chloride 0.9% 500 ML 999 ML IV (04:10)
[2022-07-10 04:20] LABS: Glucose Point of Care 317 mg/dL (70-110)
--- NOTE | 2022-07-10 04:21 | P.HP_ITS ---
Providers/Chief Complaint Admitting Physician: Michael Gillette MD/ Cardiology Primary Care Provider: Kasey Naqvi DO Chief Complaint: STEMI History of Present Illness Oralia Moralez is a 36 year old female with past medical history of diabetes, smoking, family history of premature coronary artery disease was presented to the hospital with 3 to 4 hours of substernal severe chest pain. It radiates to the left arm. EKG is consistent with anterior wall ST elevation [place]. Cardiac Chemical Instrumentation Officer was emergently activated. Plan for coronary angiogram with possible percutaneous coronary intervention. Review of Systems Const: Denies: fever(s), chills, body aches or change in appetite Eyes: Denies: blurry vision or eye discomfort ENMT: Denies: throat pain or dental pain Card: Reports: chest pain Resp: Denies: dyspnea GI: Denies: abdominal pain, nausea, vomiting or diarrhea : Denies: dysuria Musc: Denies: neck pain or back pain Skin/Breast: Denies: rash Neuro: Denies: headache(s) Psych: Denies: depression Georges/Lymph: Denies: easy bruising All/Imm: Denies: urticaria Medications/Allergies Home Medications Medication Instructions Recorded Confirmed Last Taken Type No Known Home Medications 06/01/22 06/29/22 Unknown History Allergies Allergy/AdvReac Type Severity Reaction Status Date / Time No Known Allergies Allergy Verified 07/10/22 04:00 PFSH Acute PFSH: Medical History delivery delivered Diabetes type 2, uncontrolled High cholesterol Osteoarthritis of left knee Surgical History H/O tubal ligation History of delivery x 2 Family History Father Diabetes Heart disease Mother Diabetes COPD (chronic obstructive pulmonary disease) Emphysema lung Heart disease Kidney failure Arthritis Social History Smoking and tobacco status: current every day smoker Vitals/I&O/Wt Weight last 48 hrs Weight 206 lb Physical Exam Narrative: GENERAL: Patient is alert, awake and oriented x3. [] NECK: No jugular vein distension. [] HEENT: No cyanosis. No icterus. No pallor. [] HEART: Regular S1 and S2. No murmur, rub or gallop. [] LUNGS: Clear to auscultate bilaterally. [] CENTRAL NERVOUS SYSTEM: Grossly nonfocal. [] EXTREMITIES: Lower extremities with no edema bilaterally. Data 07/10/22 04:04 07/10/22 04:04 A&P Assessment and plan (1) ST elevation myocardial infarction (STEMI): (2) Diabetes type 2, uncontrolled: (3) Hypercholesteremia: (4) Family history of early CAD: Plan Patient has presented with typical chest pain symptoms with ST elevations noted in the anterior wall. We will emergently take her to cardiac Chemical Instrumentation Officer for coronary angiogram with possible percutaneous coronary intervention. Risks and benefits of the procedure have been discussed with the patient. She understands the risks and benefits and wants to proceed with that. Aspirin and Plavix loaded. Continue for at least 1 year Echocardiogram ordered High intensity statin therapy We will consult hospitalist team to assist with management of diabetes and medical issues Attestations Medical Necessity Statement*: Care expected to cross 2 midnights. Patient presetned with chest pain and EKG concerning for acute anterior wall ST e levation MA. Coding Level of Care Code Acute Code for [facility] Diagnoses ST elevation myocardial infarction (STEMI) I21.3 Diabetes type 2, uncontrolled E11.65 Hypercholesteremia E78.00 Family history of early CAD Z82.49
[2022-07-10 04:28] LABS: Troponin(5th) Baseline 11 ng/L (0-10)
[2022-07-10 04:30] LABS: Alanine Aminotransferase 12 U/L (0-33); Alkaline Phosphatase 62 U/L (35-105); Anion Gap 17.8 (5-19); Aspartate Amino Transferase 11 U/L (0-32); Blood Urea Nitrogen 9 mg/dL (6-20); Carbon Dioxide 22 mmol/L (22-29); Chloride 94 mmol/L (98-107); Globulin 3.3 g/dL (1.3-4.6); Glomerular Filtration Rate 254.7 mL/min (90-130); Glucose 282 mg/dL (65-115); Osmolality Calculated 279 mOsm/kg (285-295); Potassium 3.8 mmol/L (3.5-5.1); Sodium 130 mmol/L (136-145); Total Bilirubin 0.2 mg/dL (0.15-1.2); Total Protein 7.3 g/dL (6.6-8.7)
[2022-07-10 04:36] LABS: Calcium 9.1 mg/dL (8.5-10.5)
--- NOTE | 2022-07-10 05:57 | ECG_ITS ---
[facility] Test Date: 2022-07-10 Pat Name: Oralia Moralez Department: Room: ICU12 Gender: Female Printer Machine: : 1985 Requested By: Caro Cheatham Order Number: [id number] Maki MD: Michael Gillette M.D. Measurements Intervals [place] Rate: 76 P: 31 GA: 144 QRS: 7 QRSD: 86 T: 23 QT: 386 QTc: 435 Interpretive Statements SINUS RHYTHM Compared to ECG 07/10/2022 03:58:54 ST (T wave) deviation no longer present Myocardial infarct finding no longer present Electronically Signed On 07-10-2022 7:48:05 SUSTAINABLE COMMUNITIES DESIGNER by Michael Gillette M.D. [id number]
--- NOTE | 2022-07-10 06:05 | PC.NURSE ---
Pt arrived from engineering laboratory technician to ICU 12 @0550 via wheelchair, on continuos monitoring, with 2 RN's @ bedside. Pt states 0/10 pain at this time. A&Ox4. R. radial TR band in place, slightly diminished radial pulse, no oozing noted from site.
--- NOTE | 2022-07-10 06:23 | P.CONIM_ITS ---
Providers/Reason For Consult Consulting Physician/Specialty*: Maegan Tillman MD Reason for Consult*: DM management Requesting Physician: Michael Gillette MD Attending Physician: Michael Gillette M.D Primary Care Provider: Kasey Naqvi DO History of Present Illness History of Present Illness Oralia Moralez is a 36 year old female who presented to the emergency room today with chief complaints of substernal chest pain. She was found to have a STEMI and went to the Datacap Developer overnight. Stent was placed in the RCA. Patient has type 2 diabetes, last A1c from August 2021 is at 8.6, I do not see a more recent one in the system. She states she is on no insulin, takes oral hypoglycemics only. Patient has somewhat of a flat affect and not very forthcoming with the history. Denies any IV drug use. Does endorse using melida demetri in the past, however states she has not used in the last 7 to 8 years. States this was a one-time use only. He denies any current meth use. Has a history of premature coronary artery disease in several first-degree relatives. Her sister at age 29 from a heart attack. Reportedly her father also had [place] in his 20s. She has not had a previous vasculitic work-up as far as I am aware. Review of Systems General: Reports: 10 or more systems reviewed and unremarkable except in HPI and below Const: Denies: fever(s), chills or body aches Eyes: Denies: change in vision, blurry vision or photophobia ENMT: Reports: hoarseness; Denies: throat pain, enlarged tonsils, odynophagia or nasal congestion Card: Denies: chest pain, palpitations, irregular heart rhythm, edema, swelling of feet/ankles, lightheadedness, pre-syncope, dyspnea on exertion or orthopnea Resp: Denies: dyspnea, productive cough, non-productive cough, wheezing, stridor, pain on inspiration, change in phlegm color, hemoptysis or chest congestion GI: Denies: abdominal pain, nausea, vomiting, hematemesis, coffee ground emesis, dysphagia, heartburn, diarrhea, constipation, GI cramping, change in stool character, hematochezia or melena : Denies: flank pain, difficulty voiding, dysuria, urinary frequency, urinary urgency, urinary hesitancy or hematuria Musc: Denies: neck pain, back pain, extremity pain, joint swelling, joint warmth or deformity Neuro: Denies: headache(s), numbness in extremities, weakness in extremities, sensory changes, difficulty walking, frequent falls, dizziness, vertigo, behavioral changes, Slurred speech present or seizure-like activity Psych: Denies: anxiety, depression, suicidal ideation or homicidal ideation Endo: Denies: polyuria, polydipsia, tired all the time, cold intolerance or hot flashes Georges/Lymph: Denies: easy bruising or easy bleeding Medications/Allergies Home Medications Medication Instructions Recorded Confirmed Last Taken Type No Known Home Medications 06/01/22 06/29/22 Unknown History Allergies Allergy/AdvReac Type Severity Reaction Status Date / Time No Known Allergies Allergy Verified 07/10/22 04:00 PFSH Acute PFSH: Medical History delivery delivered Diabetes type 2, uncontrolled High cholesterol Osteoarthritis of left knee Surgical History H/O tubal ligation History of delivery x 2 Family History Father Diabetes Heart disease Mother Diabetes COPD (chronic obstructive pulmonary disease) Emphysema lung Heart disease Kidney failure Arthritis Social History Smoking and tobacco status: current every day smoker Vitals/I&O/Wt 07/09/22 07/09/22 07/10/22 14:59 22:59 06:59 Intake Total 1500 / 1500 Balance 1500 / 1500 Weight last 48 hrs Weight 95.799 kg Weight 93.44 kg Physical Exam Narrative: General: No acute distress, AO x3 HEENT: PERRLA, pupils bilaterally equal and reactive, pallors not present Chest: Normal vesicular breath sounds, no added sounds, equal good air entry bilaterally CVS: S1-S2 regular, no murmurs, no tachycardia, no gallops, no rubs Abdomen: Soft, nontender, no organomegaly, bowel sounds present Neuro: No focal deficits, no facial deformity, AO x3, power 5/5 in all limbs Data 07/10/22 04:04 07/10/22 04:04 A&P Assessment and plan (1) ST elevation myocardial infarction (STEMI): STEMI s/pstent to RCA overnight Currently on Asa/ plavix/statin. management per cardiology h/o premature CAD in family Check urine drug screen, BONITA panel ?lupus a/c Has had a B/L tubal ligation, not in the past year (2) Diabetes type 2, uncontrolled: mild insulin sliding scale for now as insulin naive check hba1c, may be able to titrate up if elevated (3) Family history of early CAD: Consult Attestations Medical Necessity Statement: per admitting note Coding Level of Care Code Acute Code for [facility] Fwd Diagnoses ST elevation myocardial infarction (STEMI) I21.3 Diabetes type 2, uncontrolled E11.65 Family history of early CAD Z82.49
[2022-07-10 07:21] LABS: Troponin 5 2HR 50.72 ng/L (0-10)
[2022-07-10 07:45] LABS: Troponin 5 2HR Delta 39.72 ABS# (0-10)
[2022-07-10 07:47] LABS: Estmated Average Glucose 229; Hemoglobin A1C 9.6 % (4.0-6.0)
[2022-07-10 07:52] LABS: Glucose Point of Care 270 mg/dL (70-110)
[2022-07-10] MEDS: insulin lispro 100 unit/1 mL SUBCUT ×4 (08:38→21:31)
[2022-07-10] MEDS: clopidogrel 75 mg Tablet PO (08:49)
[2022-07-10] MEDS: aspirin 81 mg EC Tablet PO (08:49)
[2022-07-10] MEDS: metoprolol succinate ER (24 HR) 25 mg Tablet PO (08:49)
[2022-07-10 09:14] LABS: Troponin 5 6HR 61.94 ng/L (0-10)
[2022-07-10 09:20] LABS: Troponin 5 6HR Delta 50.94 ng/L (0-12)
[2022-07-10 09:45] LABS: Amphetamines Screen Urine Negative (Negative); Barbiturates Screen Urine Negative (Negative); Benzodiazepines Screen Urine Negative (Negative); Cocaine Screen Urine Negative (Negative); Opiate Screen Urine Negative (Negative); PCP Screen Urine Negative (Negative); THC Screen Urine Negative (Negative)
--- NOTE | 2022-07-10 09:56 | ECG_ITS ---
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 Measurements Intervals [place] Rate: 72 P: 24 WI: 158 QRS: 9 QRSD: 89 T: 24 QT: 382 QTc: 421 Interpretive Statements SINUS RHYTHM POSSIBLE INFERIOR MYOCARDIAL INFARCTION , PROBABLY OLD [30 ms Q WAVE IN II/aVF] Compared to ECG 07/10/2022 05:57:02 Myocardial infarct finding now present Electronically Signed On 07-10-2022 14:52:34 CRM SPECIALIST by Michael Gillette M.D. [id number]
--- NOTE | 2022-07-10 10:41 | USCV_ITS ---
Oralia Moralez Age: 36 Gender: F : 1985 Exam Date: 07/10/2022 15:05 Ordering Phys: Michael Gillette M.D ([email or web address]) Technologist: Bam Toure Exam Location: [facility] – [place] Indication: post stemi BP: 103 / 63 HR: 77 Rhythm: Sinus Technical Quality: Adequate MEASUREMENTS (Male / Female) Normal Values 2D ECHO LV Diastolic Diameter PLAX 4.4 cm 4.2 - 5.9 / 3.9 - 5.3 cm LV Systolic Diameter PLAX 2.3 cm IVS Diastolic Thickness 1.1 cm 0.6 - 1.0 / 0.6 - 0.9 cm IVS Systolic Thickness 1.3 cm LVPW Diastolic Thickness 1.2 cm 0.6 - 1.0 / 0.6 - 0.9 cm LVPW Systolic Thickness 1.2 cm LVOT Diameter 1.9 cm LV Ejection Fraction 2D Teich 77.4 % LV Ejection Fraction MOD 2C 69.3 % LV Ejection Fraction 2C AL 68.3 % LA Diameter 3.6 cm Aorta at Sinotubular Diameter 2.6 cm IVC Diameter 1.8 cm M-MODE LV Diastolic Diameter MM 4.8 cm 4.2 - 5.9 / 3.9 - 5.3 cm LV Systolic Diameter MM 3.2 cm LV Ejection Fraction MM Teich 62.4 % IVS Diastolic Thickness MM 1.1 cm 0.6 - 1.0 / 0.6 - 0.9 cm IVS Systolic Thickness MM 1.3 cm LVPW Diastolic Thickness MM 1.7 cm 0.6 - 1.0 / 0.6 - 0.9 cm LVPW Systolic Thickness MM 1.8 cm RV Diastolic Diameter MM 1.8 cm Aortic Annulus Diameter 3.3 cm LA Ao Ratio MM 1.2 MV E Point Septal Separation 0.8 cm DOPPLER AV Peak Velocity 137.0 cm/s LVOT Peak Velocity 111.0 cm/s AV Area Cont Eq vti 2.6 cm squared AV Area Cont Eq pk 2.3 cm squared MV Area PHT 5.0 cm squared Mitral E to A Ratio 1.2 MV E' Velocity 56.5 cm/s Mitral E to MV E' Ratio 10.9 Mitral E to LV E' Lateral Ratio 11.1 Mitral E to LV E' Septal Ratio 10.7 TR Peak Velocity 170.0 cm/s TR Peak Gradient 11.6 mmHg TV Peak E Velocity 90.0 cm/s Right Atrial Pressure 3.0 mmHg Pulmonary Artery Systolic Pressu 14.6 mmHg RV Acceleration Time 0.1 s FINDINGS Left Ventricle Left ventricle is normal in size. LV systolic function is normal with EF of 55 to 60%. No regional wall motion abnormalities are seen. Diastolic function is normal Right Ventricle Normal in size and function Right Atrium Normal in size Left Atrium Eye normal in size Mitral Valve Structurally normal mitral valve. Trace mitral regurgitation. Aortic Valve Structurally normal aortic valve. No significant stenosis or regurgitation. Tricuspid Valve Mild tricuspid regurgitation. Pulmonary artery systolic pressure is normal Pulmonic Valve Not well visualized Pericardium Normal Aorta Normal in size IVC Appears to be normal CONCLUSIONS LV systolic function is normal with EF of 55-60% Diastolic function is normal Trace mitral regurgitation Mild tricuspid regurgitation No comparison studies are available Michael Gillette MD (Electronically Signed) Final Date: 11 July 2022 08:30 S
[2022-07-10 10:46] LABS: Anion Gap 14.8 (5-19); Blood Urea Nitrogen 7 mg/dL (6-20); Calcium 8.5 mg/dL (8.5-10.5); Carbon Dioxide 23 mmol/L (22-29); Chloride 97 mmol/L (98-107); Glomerular Filtration Rate 254.7 mL/min (90-130); Glucose 222 mg/dL (65-115); Osmolality Calculated 277 mOsm/kg (285-295); Potassium 3.8 mmol/L (3.5-5.1); Sodium 131 mmol/L (136-145)
[2022-07-10 12:05] LABS: Glucose Point of Care 209 mg/dL (70-110)
--- NOTE | 2022-07-10 12:08 | PC.CHAP ---
Pastoral Care Encounter/Spiritual Assessment Type of Contact [] Declined prn occupational therapist visit [] Patient/Family/Request visit [] Outpatient visit [] Follow-up visit [] Physician referral [] Code/Alert [x] Routine visit [] Staff referral [] Actively dying [x] Patient sleeping [] Family support [] [] Out of room [] Palliative care [] [] Receiving care in room [] Pre-surgical visit [] Trauma [] Long length of stay [x] ICU visit [] Other: Relational/Emotional Strength [] Patient feels connected with others/family/visitors/staff [] Distress [] Loneliness/isolation [] Abandonment Spirituality of Patient [] Person of Darcie [] Attends Advent of their Darcie [] Believes in Prayer [] Reads Bible or Jain materials [] There are Spiritual issues to be addressed Dock Operations Supervisor Interventions [x] Prayer [] Active listening [] Non-anxious presence [] Spiritual/emotional support [] Crisis/trauma care [] Spiritual counseling [] Bereavement support [] Provided bereavement packet [] Provided Bible/devotional materials [] Provided toy/stuffed animal, coloring book to patient or family member [] Provided Communion [] Anointing/[place] [] Salvation [x] Completed spiritual assessment [] Other: Impact on Illness or Injury [] Angry [] Fearful [] Anxious [] Often cries [] Exhaustion [] Unable to work [] Unable to attend holiness [] Unable to walk/stand [] Unable to read [] Unable to drive [] Unable to eat/drink [] Unable to sleep [] Unable to be with family [] Patient intubated [] Other: Summary Time spent with patient
--- NOTE | 2022-07-10 13:39 | P.PN_ITS ---
Subjective Subjective: Patient was seen this morning, she has quite a flat affect, she tells me that she has bipolar disorder, she tells me that she has a lot of stress at home, she has 2 grown kids but she is also had to adopt 2 of her sisters kids and she helps take care of her brothers children, currently denies any chest pain, she does admit to smoking, denies any drug use she is quite sleepy this morning, she tells me that she did not get much sleep last night and she would like to go back to sleep Vitals/I&O/Wt Last Vital Signs Temp 98.2 F 07/10/22 06:27 Pulse 72 07/10/22 10:30 Resp 20 H 07/10/22 10:30 BP 107/69 07/10/22 10:30 Pulse Ox 98 07/10/22 10:30 O2 Del Method 07/10/22 10:30 07/09/22 07/10/22 07/10/22 22:59 06:59 14:59 Intake Total 1500 / 1500 440 / 440 Output Total 1500 / 1500 Balance 1500 / 1500 -1060 / -1060 Weight last 48 hrs Weight 95.799 kg Weight 93.44 kg Physical Exam Const: COMMON NORMALS: no acute distress and patient oriented x3 Resp: COMMON NORMALS: normal respiratory effort, No retractions, No use of accessory muscles and clear to auscultation bilaterally AUSCULTATION: clear to auscultation bilaterally Cardio: COMMON NORMALS: regular rate, regular rhythm, S1 normal heart sound present and S2 normal heart sound present RATE: regular rate RHYTHM: regular rhythm HEART SOUNDS: S1 normal heart sound present and S2 normal heart sound present GI: COMMON NORMALS: Normal to inspection, nondistended, normoactive bowel sounds present and non-tender Extremity: COMMON NORMALS: no pedal edema Neuro: COMMON NORMALS: patient oriented x3 Psych: OTHER: Denies feeling down depressed or sad, denies suicidal ideation, denies homicidal ideation Data 07/10/22 04:04 07/10/22 10:22 A&P Assessment and plan (1) ST elevation myocardial infarction (STEMI): STEMI s/pstent to RCA overnight Currently on Asa/ plavix/statin. management per cardiology h/o premature CAD in family Check urine drug screen, BONITA panel, ESR, lipid panel Has had a B/L tubal ligation, not in the past year (2) Diabetes type 2, uncontrolled: mild insulin sliding scale for now as insulin naive check hba1c, may be able to titrate up if elevated -Insulin sliding scale (3) Family history of early CAD: (4) Hypercholesteremia: (5) Family history of premature CAD: Attestations Medical Necessity Statement*: Patient requires hospitalization for type 2 diabetes mellitus, STEMI, RCA stenting Coding Level of Care Code Acute Code for [facility] Diagnoses ST elevation myocardial infarction (STEMI) I21.3 Diabetes type 2, uncontrolled E11.65 Family history of early CAD Z82.49 Hypercholesteremia E78.00 Family history of premature CAD Z82.49
[2022-07-10 14:58] LABS: Erythrocyte Sedimentation Rate 28 mm/hr (0-15)
[2022-07-10 15:17] LABS: Procalcitonin 0.04 ng/mL (0-0.5); T3 Free 2.8 PG/ML (2.0-4.4); Thyroid Stimulating Hormone 0.81 uIU/mL (0.27-4.20)
[2022-07-10 15:24] LABS: Add Urine Culture? Yes; Add Urine Microscopic? YES; Bilirubin Urine Neg (Negative); Blood Urine 3+ (Negative); Glucose Urine UA 4+ (Normal); Ketones Urine 1+ (Negative); Leukocyte Esterase Urine Trace (Negative); Nitrate Urine Positive (Negative); Protein Urine 2+ (Negative); RBC Urine TOO NUMEROUS TO CNT /hpf (0-2); Specific Gravity, Urine 1.005 (1.005-1.030); Urine Appearance Cloudy (CLEAR); Urine Color Amber (Yellow); Urobilinogen Urine Neg (Negative); WBC Urine 0-4 /hpf (0-5); pH Urine 5 (5-7)
[2022-07-10 15:30] LABS: C Reactive Protein 28.4 mg/L (0.0-4.9); Chol HDL Ratio 8.09 mg/dL (0.0-4.40); Cholesterol 186 mg/dL (0-200); HDL Cholesterol 23 mg/dL (60-100); LDL Cholesterol Calculated 127 mg/dL (50-129); LDL HDL Ratio 5.52 RATIO (0.00-3.22); Triglycerides 178 mg/dL (0-150)
[2022-07-10 17:15] LABS: Glucose Point of Care 200 mg/dL (70-110)
[2022-07-10 21:24] LABS: Glucose Point of Care 264 mg/dL (70-110)
[2022-07-10] MEDS: atorvastatin 40 mg Tablet PO (21:33)
[2022-07-10] MEDS: temazepam 15 mg Capsule PO (21:33)
[2022-07-11] VITALS (7 sets, daily range): BP systolic 99–121; BP diastolic 48–65; PULSE 66–88; RESP 17–26; TEMP 36.8; O2SAT 96–99
[2022-07-11 04:13] LABS: Basophils % 0.6 %; Eosinophils # 0.1 10^3/uL (0.0-0.8); Eosinophils % 1.6 %; Hematocrit 38.7 % (37.0-47.0); Hemoglobin 12.7 g/dL (11.5-15.3); Lymphocytes # 1.6 10^3/uL (0.8-4.8); Lymphocytes % 25.9 %; Mean Corpuscular HGB Conc 32.8 g/dL (30.0-36.0); Mean Corpuscular Hemoglobin 28.3 pg (28.0-34.0); Mean Corpuscular Volume 86.4 fl (81-99); Mean Platelet Volume 9.4 fL (7.4-10.4); Monocytes # 0.4 10^3/uL (0.2-0.9); Neutrophils # 3.99 10^3/uL (1.8-7.7); Neutrophils % 64.6 %; Nucleated Red Blood Cells % 0 %; Platelet Count 249 10^3/cmm (130-400); Red Blood Count 4.48 10^6/uL (4.1-5.3); Red Cell Distribution Width 12.8 % (12.1-15.1); White Blood Count 6.2 10^3/uL (4.0-10.0)
[2022-07-11 04:37] LABS: Blood Urea Nitrogen 11 mg/dL (6-20); Calcium 8.5 mg/dL (8.5-10.5); Carbon Dioxide 23 mmol/L (22-29); Chloride 102 mmol/L (98-107); Glomerular Filtration Rate 254.7 mL/min (90-130); Glucose 268 mg/dL (65-115); Osmolality Calculated 289 mOsm/kg (285-295); Sodium 135 mmol/L (136-145)
[2022-07-11 08:13] LABS: Glucose Point of Care 352 mg/dL (70-110)
--- NOTE | 2022-07-11 08:37 | P.DS_ITS ---
Discharge Providers Date of Admission: 07/10/22 05:35 Date of Discharge: July 11, 2022 Attending Provider at Admission: Michael Gillette M.D Attending Provider at Discharge: Michael Gillette M.D Primary Care Provider: Kasey Naqvi DO Diagnoses at Discharge Discharge Diagnosis (1) ST elevation myocardial infarction (STEMI): Status: Acute (2) Diabetes type 2, uncontrolled: Status: Acute (3) Family history of early CAD: Status: Acute (4) Hypercholesteremia: Status: Acute (5) Family history of premature CAD: Status: Acute Reason for Visit Reason for Visit: STEMI Hospital Course Hospital Course This is a 36-year-old female with a past medical history of obesity, smoker, noninsulin-dependent type 2 diabetes mellitus, not on any medications, who presents to [facility] for chest pain, patient was found to have STEMI, taken to [facility], status post RCA stenting. Overall patient clinically did well, no recurrent chest pain. Discharged on aspirin, Plavix, statin, beta- andi with close follow-up with cardiology as outpatient. For her type 2 diabetes mellitus, patient has not been taking any medications, hemoglobin A1c 9.6, discharged with instructions as below. Advised to quit smoking. Follow-up with primary care provider in 1 week for blood sugars -Please stop smoking -Please take aspirin, Plavix, statin as prescribed -Do not stop taking aspirin or Plavix -If you develop bloody or black stools go to emergency room -If you have recurrent chest pain go to the emergency room -Take Lantus 10 units subcu daily -Inject NovoLog 3 times daily, after meals, based on sliding scale provided below -Insulin sliding fingerstick? Insulin 141-180?2 units/sq 181-220?4 units/sq 221-260?6 units/sq 261-300?8 units/sq 301-350 10 units/sq 351-400 12 units/sq > 400? 14 units/sq ? -Please monitor your blood sugars closely -Monitor your blood sugars 3 times daily as after meals -Please record your blood sugars, and a blood sugar log -For your NovoLog -Please inject blood sugar after meals based on sliding scale provided -Do not inject insulin if you do not eat as hypoglycemia kills -This is a NovoLog sliding scale -Insulin sliding ?fingerstick? Insulin ?141-180?2 units/sq 181-220?4 units/sq ?221-260?6 units/sq ?261-300?8 units/sq ?301-350 10 units/sq ?351-400 12 units/sq > 400? 14 units/sq -If your blood sugar is greater than 500 go to the emergency room -If your blood sugar is less than 60 or at anytime you feel lightheaded or dizzy or diaphoretic or have chest palpitations check your blood sugar, and eat a hard candy or drink orange juice and go immediately to the emergency room -Remember hypoglycemia kills, so if his blood sugar is less than 60 we have to increase it by taking in a sugary meal such as a hard candy or orange juice and go to the emergency room -If you have any questions please call us where here to help - Physical Exam Const: COMMON NORMALS: no acute distress and patient oriented x3 Resp: COMMON NORMALS: normal respiratory effort, No retractions, No use of accessory muscles and clear to auscultation bilaterally AUSCULTATION: clear to auscultation bilaterally Cardio: COMMON NORMALS: regular rate, regular rhythm, S1 normal heart sound present and S2 normal heart sound present RATE: regular rate RHYTHM: regular rhythm HEART SOUNDS: S1 normal heart sound present and S2 normal heart sound present GI: COMMON NORMALS: Normal to inspection, nondistended, normoactive bowel sounds present, Soft to palpation and non-tender PALPATION: Yes Soft to palpation Extremity: COMMON NORMALS: no clubbing, cyanosis or edema and no pedal edema Neuro: COMMON NORMALS: patient oriented x3 Psych: COMMON NORMALS: mental status grossly normal Discharge Data Studies Completed and Pending Completed Studies During Hospitalization Category Date Time Status XR chest 1V portable [id number] Stat Exams 07/10/22 04:06 Completed CV. echo complete* [id number] Routine Ultrasound 07/10/22 10:41 Completed Pending at discharge Category Date Time Status LAY BROTHER request for service Stat Exams 07/10/22 04:09 Taken BONITA Profile Rheumatology Routine Lab 07/10/22 14:28 Received Blood Culture Stat Lab 07/10/22 14:30 Results Urine Culture Stat Lab 07/10/22 08:35 Received Radiology Impressions Chest X-Ray 07/10/22 04:06 IMPRESSION: 1. No acute findings. 2. No consolidation or overt CHF. Laboratory Results WBC 6.2 10^3/uL (4.0-10.0) 07/11/22 04:00 RBC 4.48 10^6/uL (4.1-5.3) 07/11/22 04:00 Hgb 12.7 g/dL (11.5-15.3) 07/11/22 04:00 Hct 38.7 % (37.0-47.0) 07/11/22 04:00 MCV 86.4 fl (81-99) 07/11/22 04:00 MCH 28.3 pg (28.0-34.0) 07/11/22 04:00 MCHC 32.8 g/dL (30.0-36.0) 07/11/22 04:00 RDW 12.8 % (12.1-15.1) 07/11/22 04:00 Plt Count 249 10^3/cmm (130-400) 07/11/22 04:00 MPV 9.4 fL (7.4-10.4) 07/11/22 04:00 Neut % (Auto) 64.6 % 07/11/22 04:00 Lymph % (Auto) 25.9 % 07/11/22 04:00 [place] % (Auto) 7.0 % 07/11/22 04:00 Eos % (Auto) 1.6 % 07/11/22 04:00 Baso % (Auto) 0.6 % 07/11/22 04:00 Neut # (Auto) 3.99 10^3/uL (1.8-7.7) 07/11/22 04:00 Lymph # (Auto) 1.6 10^3/uL (0.8-4.8) 07/11/22 04:00 [place] # (Auto) 0.4 10^3/uL (0.2-0.9) 07/11/22 04:00 Eos # (Auto) 0.1 10^3/uL (0.0-0.8) 07/11/22 04:00 Baso # (Auto) 0.0 10^3/uL (0.0-0.1) 07/11/22 04:00 Nucleated RBC % (auto) 0 % 07/11/22 04:00 Nucleated RBCs # 0.0 /100WBC 07/11/22 04:00 ESR 28 mm/hr (0-15) H 07/10/22 14:28 Sodium 135 mmol/L (136-145) L 07/11/22 04:00 Potassium 4.0 mmol/L (3.5-5.1) 07/11/22 04:00 Chloride 102 mmol/L (98-107) 07/11/22 04:00 Carbon Dioxide 23 mmol/L (22-29) 07/11/22 04:00 Anion Gap 14.0 (5-19) 07/11/22 04:00 BUN 11 mg/dL (6-20) 07/11/22 04:00 Creatinine 0.3 mg/dL (0.5-0.9) L 07/11/22 04:00 GFR Calculation 254.7 mL/min (90-130) H 07/11/22 04:00 Glucose 268 mg/dL (65-115) H 07/11/22 04:00 POC Glucose 352 mg/dL (70-110) H 07/11/22 08:10 Estimat Average Glucose 229 07/10/22 06:47 Hemoglobin A1c 9.6 % (4.0-6.0) H 07/10/22 06:47 Calculated Osmolality 289 mOsm/kg (285-295) 07/11/22 04:00 Calcium 8.5 mg/dL (8.5-10.5) 07/11/22 04:00 Total Bilirubin 0.2 mg/dL (0.15-1.2) 07/10/22 04:04 AST 11 U/L (0-32) 07/10/22 04:04 ALT 12 U/L (0-33) 07/10/22 04:04 Alkaline Phosphatase 62 U/L (35-105) 07/10/22 04:04 Troponin T Baseline 11 ng/L (0-10) H 07/10/22 04:04 Troponin T 120 Minute 50.72 ng/L (0-10) H 07/10/22 06:47 Delta Troponin T 39.72 ABS# (0-10) H* 07/10/22 06:47 Troponin T Hi Sens 6Hr 61.94 ng/L (0-10) H 07/10/22 08:47 Troponin T Hi Sens 6Hr Delta 50.94 ng/L (0-12) H* 07/10/22 08:47 C-Reactive Protein 28.4 mg/L (0.0-4.9) H 07/10/22 14:28 Total Protein 7.3 g/dL (6.6-8.7) 07/10/22 04:04 Albumin 4.0 g/dL (3.5-5.2) 07/10/22 04:04 Globulin 3.3 g/dL (1.3-4.6) 07/10/22 04:04 Triglycerides 178 mg/dL (0-150) H 07/10/22 14:28 Cholesterol 186 mg/dL (0-200) 07/10/22 14:28 LDL Cholesterol, Calc 127 mg/dL (50-129) 07/10/22 14: HDL Cholesterol 23 mg/dL (60-100) L 07/10/22 14: LDL/HDL Ratio 5.52 RATIO (0.00-3.22) H 07/10/22 14: Cholesterol/HDL Ratio 8.09 mg/dL (0.0-4.40) H 07/10/22 14:28 Procalcitonin 0.04 ng/mL (0-0.5) 07/10/22 14:28 TSH 0.81 uIU/mL (0.27-4.20) 07/10/22 14: Free T3 2.8 PG/ML (2.0-4.4) 07/10/22 14:28 Ser , Semi-Qnt 1.00 mIU/mL 07/10/22 14:28 Urine Color Amy (Yellow) 07/10/22 08:35 Urine Appearance Cloudy (CLEAR) A 07/10/22 08:35 Urine pH 5 (5-7) 07/10/22 08:35 Ur Specific [place] 1.005 (1.005-1.030) 07/10/22 08:35 Urine Protein 2+ (Negative) H 07/10/22 08:35 Urine Glucose (UA) 4+ (Normal) H 07/10/22 08:35 Urine Ketones 1+ (Negative) H 07/10/22 08:35 Urine Blood 3+ (Negative) H 07/10/22 08:35 Urine Nitrate Positive (Negative) H 07/10/22 08:35 Urine Bilirubin Neg (Negative) 07/10/22 08:35 Urine Urobilinogen Neg mg/dL (Negative) 07/10/22 08:35 Ur Leukocyte Esterase Trace (Negative) H 07/10/22 08:35 Urine RBC Too numerous to cnt /hpf (0-2) H 07/10/22 08:35 Urine WBC 0-4 /hpf (0-5) H 07/10/22 08:35 Ur Squamous Epith Cells None /hpf (0-5) 07/10/22 08:35 Amorphous Sediment Not Reportable 07/10/22 08:35 Urine Bacteria None /hpf (NONE) 07/10/22 08:35 Urine Opiates Screen Negative ng/mL (Negative) 07/10/22 08:35 Ur Barbiturates Screen Negative ng/mL (Negative) 07/10/22 08:35 Ur Phencyclidine Scrn Negative ng/mL (Negative) 07/10/22 08:35 Ur Amphetamines Screen Negative ng/mL (Negative) 07/10/22 08:35 U Benzodiazepines Scrn Negative ng/mL (Negative) 07/10/22 08:35 Urine Cocaine Screen Negative ng/mL (Negative) 07/10/22 08:35 U Marijuana (THC) Screen Negative ng/mL (Negative) 07/10/22 08:35 Vitals Last Vital Signs Temp 98.3 F 07/11/22 04:00 Pulse 88 07/11/22 06:00 Resp 17 07/11/22 06:00 BP 121/65 07/11/22 06:00 Pulse Ox 99 07/11/22 06:00 O2 Del Method 07/10/22 10:30 Discharge Plan Discharge Patient Disposition: Home Condition: Stable Prescriptions: New atorvastatin 40 mg Tablet 40 mg PO BEDTIME 30 Days Qty: 30 0RF clopidogrel 75 mg Tablet 75 mg PO DAILY 30 Days Qty: 30 0RF aspirin 81 mg Tablet,Delayed Release (Dr/Ec) 81 mg PO DAILY 30 Days Qty: 30 0RF nitroglycerin 0.4 mg Tablet, Sublingual 0.4 mg sublingual Q5M PRN (Reason: Chest Pain) 30 Days Qty: 30 0RF metoprolol succinate 25 mg Tablet Extended Release 24 Hr 25 mg PO DAILY 30 Days Qty: 30 0RF metformin 500 mg tablet 500 mg PO BID 30 Days Qty: 60 0RF Lantus Solostar U-100 Insulin 100 unit/mL (3 mL) insulin pen 10 unit SUBCUT Q24H 30 Days Qty: 3 0RF Novolog FlexPen U-100 Insulin 100 unit/mL (3 mL) insulin pen See Rx Instructions .ROUTE .COMPLEX MDD 40 Qty: 15 0RF Rx Instructions: Inject subcu, 3 times daily, after meals, based on sliding scale provided cefdinir 300 mg capsule 300 mg PO BID 5 Days Qty: 10 0RF No Action No Known Home Medications Discharge Orders: Discharge Order (Routine); Ordered 07/11/22 Ordered By: Carlitos Norton Referrals: Kasey Naqvi DO [Primary Care Provider] - Discharge Diet: Cardiac Discharge Activity: Resume usual activity Patient Instructions: Hypoglycemia, Foot Care for People with Diabetes (DC), Hypoglycemia in a Person with Diabetes (DC), Type 2 Diabetes in Adults: New Diagnosis (DC), Diabetic Hyperglycemia (DC), Coronary Intravascular Stent Placement (GEN), Coronary Artery Disease in Women (DC), What to Do if Your Blood Sugar is Low (DC), Diabetes and Nutrition (DC), Diabetes and Exercise (GEN), Opioid Safety Activity Restrictions/Additional Instructions: -Please stop smoking -Please take aspirin, Plavix, statin as prescribed -Do not stop taking aspirin or Plavix -If you develop bloody or black stools go to emergency room -If you have recurrent chest pain go to the emergency room -Take Lantus 10 units subcu daily -Inject NovoLog 3 times daily, after meals, based on sliding scale provided below -Insulin sliding fingerstick? Insulin 141-180?2 units/sq 181-220?4 units/sq 221-260?6 units/sq 261-300?8 units/sq 301-350 10 units/sq 351-400 12 units/sq > 400? 14 units/sq ? -Please monitor your blood sugars closely -Monitor your blood sugars 3 times daily as after meals -Please record your blood sugars, and a blood sugar log -For your NovoLog -Please inject blood sugar after meals based on sliding scale provided -Do not inject insulin if you do not eat as hypoglycemia kills -This is a NovoLog sliding scale -Insulin sliding ?fingerstick? Insulin ?141-180?2 units/sq 181-220?4 units/sq ?221-260?6 units/sq ?261-300?8 units/sq ?301-350 10 units/sq ?351-400 12 units/sq > 400? 14 units/sq -If your blood sugar is greater than 500 go to the emergency room -If your blood sugar is less than 60 or at anytime you feel lightheaded or dizzy or diaphoretic or have chest palpitations check your blood sugar, and eat a hard candy or drink orange juice and go immediately to the emergency room -Remember hypoglycemia kills, so if his blood sugar is less than 60 we have to increase it by taking in a sugary meal such as a hard candy or orange juice and go to the emergency room -If you have any questions please call us where here to help - Discharge Attestations Time Spent in Discharge Care*: greater than 30 min Quality Metrics Clinical Quality Measures [ Acute Myocardial Infaction { Clinical Trial Participant: No; Contraindication to aspirin: None; Aspirin prescribed; Contraindication to statin: None; Statin prescribed; Contraindication to PCI: None; PCI performed;}] Coding Level of Care Code Acute [facility] note Diagnoses ST elevation myocardial infarction (STEMI) I21.3 Diabetes type 2, uncontrolled E11.65 Family history of early CAD Z82.49 Hypercholesteremia E78.00 Family history of premature CAD Z82.49
--- NOTE | 2022-07-11 08:58 | P.PN_ITS ---
Subjective Subjective: Patient had severe mid LAD stenosis with overlaying thrombus on coronary angiogram yesterday, underwent successful revascularization with DESx 1. RCA has diffuse disease. Will be medically management. ECHO shows normal LV systolic function She is doing well. Denies any plaints of chest pain or shortness of breath. Radial access site is normal. Vitals/I&O/Wt Last Vital Signs Temp 98.3 F 07/11/22 04:00 Pulse 88 07/11/22 06:00 Resp 17 07/11/22 06:00 BP 121/65 07/11/22 06:00 Pulse Ox 99 07/11/22 06:00 O2 Del Method 07/10/22 10:30 07/10/22 07/11/22 07/11/22 22:59 06:59 14:59 Intake Total 480 / 920 300 / 1220 Output Total 600 / 2100 0 / 2100 Balance -120 / -1180 300 / -880 Weight last 48 hrs Weight 211 lb 3.2 oz Weight 206 lb Physical Exam Narrative: GENERAL: Patient is alert, awake and oriented x3. [] NECK: No jugular vein distension. [] HEENT: No cyanosis. No icterus. No pallor. [] HEART: Regular S1 and S2. No murmur, rub or gallop. [] LUNGS: Clear to auscultate bilaterally. [] CENTRAL NERVOUS SYSTEM: Grossly nonfocal. [] EXTREMITIES: Lower extremities with no edema bilaterally. Data 07/11/22 04:00 07/11/22 04:00 Micro: Microbiology 07/10/22 14:30 Blood Culture - Preliminary Blood SPECIMEN COLLECTED 07/10/22 14:28 Blood Culture - Preliminary Blood SPECIMEN COLLECTED A&P Assessment and plan (1) ST elevation myocardial infarction (STEMI): (2) Diabetes type 2, uncontrolled: (3) Hypercholesteremia: (4) Family history of early CAD: Plan Patient has presented with typical chest pain symptoms with ST elevations noted in the anterior wall. Coronary angiogram demonstrated severe mid LAD stenosis with overlying thrombus. She underwent successful revascularization with BIRDIE x1. 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 RCA is diffusely diseased. Left circumflex artery has a moderate stenosis. Continue aspirin and Plavix for at least 1 year Echo shows normal LV systolic function. High intensity statin therapy Medicine team helping with management of medical issues including diabetes. Patient is stable to discharge today. I emphasized the need of compliance with medication and risk factor modification. She understands importance of kiki nuing with dual antiplatelet therapy of aspirin and Plavix. Attestations Medical Necessity Statement*: Care expected to cross 2 midnights. Coding Level of Care Code Acute Code for [facility] Fwd Diagnoses ST elevation myocardial infarction (STEMI) I21.3 Diabetes type 2, uncontrolled E11.65 Hypercholesteremia E78.00 Family history of early CAD Z82.49
[2022-07-11] MEDS: aspirin 81 mg EC Tablet PO (09:12)
[2022-07-11] MEDS: metoprolol succinate ER (24 HR) 25 mg Tablet PO (09:12)
[2022-07-11] MEDS: cefTRIAXone 1,000 MG in sodium chloride 0.9% (plus) 50 ML 100 MG IV (09:12)
[2022-07-11] MEDS: clopidogrel 75 mg Tablet PO (09:12)
[2022-07-11] MEDS: insulin lispro 100 unit/1 mL SUBCUT (09:13)
[2022-07-11] MEDS: insulin glargine 100 units/1 mL 5 UNIT SUBCUT (09:13)
--- NOTE | 2022-07-11 10:35 | PC.NURSE ---
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 Medications were still at the main campus pharmacy. She stated that she would just wait in the waiting room. Discharge instructions gone over thoroughly and patient understood. Patient had also taken her own IV out and it was sitting in the trash can. She ambulated to the pharmacy waiting room where she was going to wait on her medications.
[2022-07-11 11:44] LABS: CENTROMERE B ANTIBODY <1.0 NEG AI (<1.0 NEG); JO-1 ANTIBODY <1.0 NEG AI (<1.0 NEG); RNP ANTIBODY <1.0 NEG AI (<1.0 NEG); SCL-70 ANTIBODY <1.0 NEG AI (<1.0 NEG); SJOGREN'S ANTIBODY (SS-A) <1.0 NEG AI (<1.0 NEG); SM ANTIBODY <1.0 NEG AI (<1.0 NEG); SS-B <1.0 NEG AI (<1.0 NEG)
[2022-07-11 14:44] LABS: COMPLEMENT, TOTAL (CH50) >60 U/mL (31-60)
[2022-07-11 14:59] LABS: ANA SCREEN, IFA NEGATIVE (NEGATIVE); COMPLEMENT COMPONENT C3C 132 mg/dL (83-193); COMPLEMENT COMPONENT C4C 17 mg/dL (15-57)
[2022-07-11 17:11] LABS: THYROID PEROXIDASE ANTIBODIES <1 IU/mL (<9)
[2022-07-13 09:05] LABS: DNA AB (DS) CRITHIDIA,IFA NEGATIVE (NEGATIVE)
== END 2022-07-11 10:30 | disposition home or self-care (01) | DRG 247 ==
LOC: ER 04:09 → ICU 06:20
PROVIDERS: Family Medicine; Student in an Organized Health Care Education/Training Program; Admitting Provider Internal Medicine; Emergency Provider Emergency Medicine; PCP Family Medicine; Visit Provider Internal Medicine
PROC: 027034Z Dilation of Coronary Artery, One Artery with Drug-eluting Intraluminal Device, Percutaneous Approach (ICD-10-PCS; principal; 2022-07-10 04:00)
PROC: 027034Z Dilation of Coronary Artery, One Artery with Drug-eluting Intraluminal Device, Percutaneous Approach (ICD-10-PCS; 2022-07-10 04:00)
DX: I21.02 ST elevation (STEMI) myocardial infarction involving left anterior descending coronary artery (principal); E11.65 Type 2 diabetes mellitus with hyperglycemia; Z82.49 Family history of ischemic heart disease and other diseases of the circulatory system; E78.00 Pure hypercholesterolemia, unspecified; E66.9 Obesity, unspecified; Z68.24 Body mass index [BMI] 24.0-24.9, adult; F17.200 Nicotine dependence, unspecified, uncomplicated
CPT/HCPCS: 36415; 36416; 71045; 80048; 80053; 80061; 80306; 81001; 82962; 83036; 84145; 84443; 84481; 84484; 84702; 85025; 85347; 85651; 86140; 86160; 86162; 86235; 86255; 86376; 87040; 87086; 92978; 93005; 93306; 93458; 96365; 96372; 96374; 99152; 99153; 99291; C1725; C1753; C1769; C1874; C1887; C1894; C9600; J0696; J1644; J1815; J2250; J3010; J3490; J7030; J7040; Q9967

== ENCOUNTER → 2022-07-26 11:25 | Outpatient (BNVA) | payer MEDICAID, SELFPAY | PROVIDERS: PCP Family Medicine; Visit Provider Internal Medicine Cardiovascular Disease | DX: I25.10 Atherosclerotic heart disease of native coronary artery without angina pectoris (principal); I25.2 Old myocardial infarction; F17.219 Nicotine dependence, cigarettes, with unspecified nicotine-induced disorders; E11.65 Type 2 diabetes mellitus with hyperglycemia; Z79.4 Long term (current) use of insulin; E78.00 Pure hypercholesterolemia, unspecified | CPT/HCPCS: 99213 ==

== ENCOUNTER → 2022-08-10 10:23 | Outpatient (BNVA) | payer MEDICAID, SELFPAY | PROVIDERS: PCP Family Medicine; Visit Provider Internal Medicine | DX: E11.65 Type 2 diabetes mellitus with hyperglycemia (principal); E78.00 Pure hypercholesterolemia, unspecified; Z82.49 Family history of ischemic heart disease and other diseases of the circulatory system; I25.10 Atherosclerotic heart disease of native coronary artery without angina pectoris; Z79.4 Long term (current) use of insulin; Z79.84 Long term (current) use of oral hypoglycemic drugs | CPT/HCPCS: 99214 ==

== ENCOUNTER 2022-08-15 08:21 | Outpatient (CLI) | payer MEDICAID, SELFPAY ==
[2022-08-15 09:26] LABS: Alanine Aminotransferase 21 U/L (0-33); Albumin Level 3.8 g/dL (3.5-5.2); Alkaline Phosphatase 59 U/L (35-105); Anion Gap 19.4 (5-19); Blood Urea Nitrogen 10 mg/dL (6-20); Calcium 8.9 mg/dL (8.5-10.5); Carbon Dioxide 19 mmol/L (22-29); Chloride 103 mmol/L (98-107); Chol HDL Ratio 5.62 mg/dL (0.0-4.40); Cholesterol 163 mg/dL (0-200); Globulin 2.5 g/dL (1.3-4.6); Glomerular Filtration Rate 254.7 mL/min (90-130); Glucose 155 mg/dL (65-115); HDL Cholesterol 29 mg/dL (60-100); LDL Cholesterol Calculated 100 mg/dL (50-129); LDL HDL Ratio 3.45 RATIO (0.00-3.22); Osmolality Calculated 286 mOsm/kg (285-295); Potassium 4.4 mmol/L (3.5-5.1); Sodium 137 mmol/L (136-145); Total Bilirubin 0.2 mg/dL (0.15-1.2); Total Protein 6.3 g/dL (6.6-8.7); Triglycerides 169 mg/dL (0-150)
[2022-08-15 09:27] LABS: Aspartate Amino Transferase 20 U/L (0-32)
[2022-08-15 09:34] LABS: Estmated Average Glucose 183
[2022-08-15 09:58] LABS: Creatinine Urine, Random 63 mg/dL (28-217); Microalbum Creatinine Ratio Ur 16 mg/dL (0-20); Microalbumin Random Urine 1 ug/dL (0-20)
== END 2022-08-15 08:22 | disposition home or self-care (01) ==
LOC: LAB 08:26
PROVIDERS: PCP Family Medicine; Visit Provider Internal Medicine
DX: E11.65 Type 2 diabetes mellitus with hyperglycemia (principal); E78.00 Pure hypercholesterolemia, unspecified
CPT/HCPCS: 36415; 80053; 80061; 82044; 83036

== ENCOUNTER → 2022-09-11 12:44 | Outpatient (BNVA) | payer MEDICAID, SELFPAY | PROVIDERS: PCP Family Medicine; Visit Provider Specialist | DX: I25.10 Atherosclerotic heart disease of native coronary artery without angina pectoris (principal); F17.219 Nicotine dependence, cigarettes, with unspecified nicotine-induced disorders; E11.65 Type 2 diabetes mellitus with hyperglycemia; E78.00 Pure hypercholesterolemia, unspecified; Z79.4 Long term (current) use of insulin; Z79.82 Long term (current) use of aspirin; I25.2 Old myocardial infarction | CPT/HCPCS: 93005; 99214 ==

== ENCOUNTER 2022-10-15 08:15 | Outpatient (CLI) | payer MEDICAID, SELFPAY ==
[2022-10-15 08:28] VITALS: BMI 34.7
--- NOTE | 2022-10-15 08:30 | ECG_ITS ---
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 Interpretive Statements NAME OF STUDY: LEXISCAN SESTAMIBI STRESS TEST INDICATION: [Chest Pain] Procedure: At the baseline, the blood pressure was 119/64 mmHg with a heart rate of 73 bpm. The electrocardiogram showed normal sinus rhythm, normal axis with normal ST and T's. The Lexiscan was infused over a period of 20 seconds. A total of 0.4 mg of Lexiscan was infused. The stress phase was continued for a total of 5 minutes. Heart rate was at the end of stress phase was 91 bpm and a blood pressure of 132/82 mmHg. The EKG at the peak infusion revealed normal sinus rhythm with no significant ST-T wave changes. Sestamibi was injected 20 seconds after the Lexiscan infusion. Blood pressure at the end of recovery phase was 112/81 mmHg with a heart rate of 93 bpm. Conclusion: 1. Normal EKG response to Lexiscan infusion 2. No Lexiscan induced chest pain or cardiac arrhythmia. 3. Normal blood pressure and heart rate response. 4. Sestamibi/sestamibi perfusion scan pending; see separate report. Electronically Signed On 11-03-2022 20:52:11 CDT by Michael Gillette M.D. [id number]
--- NOTE | 2022-10-15 08:31 | NMCV_ITS ---
NM guanako perf SPECT r/s* [id number] Oralia Moralez Age: 36 Gender: F : 1985 Exam Date: 10/15/2022 09:33 Ordering Phys: Radha Irwin MD ([email or web address]) Technologist: LOUISE Rangel Exam Location: [facility] Indications: CHEST PAIN, ATHEROSCLEROTIC HEART DISEASE STRESS TEST [facility] IMAGE PROTOCOL Rest/Stress 1 Lexiscan Day Radiopharmaceutical Dose (mCi) Administration Site Administered by Rest: Tc-99m 10.4 IV LOUISE Chavarria Sestamibi Stress:Tc-99m 32.5 IV LOUISE Chavarria Sestamibi Rest: 15-Oct-2022 60 Discovery 630 Stress: 15-Oct-2022 30 Discovery 630 0.4mg Lexiscan. Images obtained in supine and prone position. SPECT RESULTS Technical Quality: Excellent Raw Data Analysis: Normal Image Corrections: No attenuation or motion correction applied Summed Stress Score: 10 Summed Rest Score: 0 Summed Difference Score: 10 PERFUSION FINDINGS There is a large in size, reversible perfusion defect noted in the apical, apical anterior and anterolateral julian. This is consistent with large area of ischemia seen in the LAD and Left circumflex artery territory. FUNCTIONAL RESULTS (calculated via Gated SPECT) Stress Image LV EF (%): 73 Stress EDV (mL):92 TID: 1.06 Stress ESV (mL):25 FUNCTIONAL FINDINGS: There is normal left ventricular systolic function. IMPRESSIONS 1. Abnormal myocardial perfusion imaging with large area of ischemia noted in the LAD and left circumflex artery territory. 2. LV systolic function is normal Michael Gillette MD (Electronically Signed) Final Date: 16 Oct 2022 12:42 S
--- NOTE | 2022-10-15 10:17 | SUR.PREOP ---
INTRASTRESS NOTE Patient unable to meet the physical demands of the treadmill. Maximal effort achieved and asked to stop d/t shortness of breath. Max HR reached was 62%. MD notified. Verbal orders to change to lexiscan received. Patient agreed to change.
[2022-10-15] MEDS: regadenoson 0.4 Mg/5 ml Syringe IVP (10:25)
[2022-10-15 10:37] VITALS: BP 113/62; PULSE 83
== END 2022-10-15 08:16 | disposition home or self-care (01) ==
LOC: CDL 08:16
PROVIDERS: PCP Family Medicine; Visit Provider Specialist
DX: R07.9 Chest pain, unspecified (principal); I25.10 Atherosclerotic heart disease of native coronary artery without angina pectoris
CPT/HCPCS: 36415; 78452; 93017; 96374; A9500; J2785

== ENCOUNTER 2022-10-16 14:06 | Inpatient (IN) | payer MEDICAID, SELFPAY ==
[2022-10-16] VITALS (10 sets, daily range): BP systolic 101–138; BP diastolic 63–91; PULSE 62–92; RESP 16–26; TEMP 36.6–36.9; O2SAT 94–100; BMI 33.9
--- NOTE | 2022-10-16 14:48 | ECG_ITS ---
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 Measurements Intervals [place] Rate: 78 P: 25 [place]: 139 QRS: -4 QRSD: 92 T: 12 QT: 361 QTc: 414 Interpretive Statements SINUS RHYTHM POSSIBLE ANTERIOR MYOCARDIAL INFARCTION , OF INDETERMINATE AGE [30 ms Q WAVE IN V3/V4, OR R < 0.2 mV IN V4] INTERPRETATION BASED ON A DEFAULT AGE OF 40 YEARS Compared to ECG 07/10/2022 10:46:27 No significant changes Electronically Signed On 10-17-2022 0:21:57 CDT by Pam Subramanian M.D. [id number]
--- NOTE | 2022-10-16 14:48 | XRR_ITS ---
PROCEDURE INFORMATION: Exam: XR Chest Exam date and time: 10/16/2022 3:17 PM Age: 36 years old Clinical indication: Pain; Angina pectoris; Prior surgery; Surgery type: Stent; Additional info: Chest pain TECHNIQUE: Imaging protocol: Radiologic exam of the chest. Views: 1 view. COMPARISON: CR XR chest 1V portable [id number] 07/10/2022 4:03 AM FINDINGS: Lungs: Unremarkable. No consolidation. Pleural spaces: Unremarkable. No pleural effusion. No pneumothorax. Heart/Mediastinum: Unremarkable. No cardiomegaly. Suggestion of small radiopaque stent overlying the upper left heart. Bones/joints: Unremarkable. XR/XR chest 1V portable [id number] IMPRESSION: No acute findings.
--- NOTE | 2022-10-16 14:49 | ED_ITS ---
HPI - Chest Pain General: Chief Complaint: Chest Pain Stated Complaint: blood in mouth, chest pain, sent by Gillette Time Seen by Provider: 10/16/22 14:48 History of Present Illness: Patient presents to the ER with complaints of chest pain and shortness of breath, patient states she had an abnormal stress test yesterday done by Dr. Yang, and that she already has 1 stent in her heart. 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 Onset (ago): hour(s) Timing of current episode: episodic Prior episodes: Yes Onset: during rest Pain location: left chest Quality: aching Relieving factors: nothing Exacerbating factors: exertion Associated symptoms: Deny abdominal pain, dyspnea or fever(s) Review of Systems General: Reports: 10 or more systems reviewed and unremarkable except in HPI and below Const: Denies: fever(s) Eyes: Denies: change in vision or photophobia ENMT: Denies: throat pain or odynophagia Card: Denies: chest pain or edema Resp: Denies: dyspnea or non-productive cough GI: Denies: abdominal pain or hematemesis : Denies: flank pain or dysuria Musc: Denies: neck pain or back pain Skin/Breast: Denies: rash or pruritus Neuro: Denies: headache(s), numbness in extremities or weakness in extremities PFSH ED PFSH: Medical History CAD (coronary artery disease) delivery delivered Diabetes type 2, uncontrolled High cholesterol Osteoarthritis of left knee STEMI (ST elevation myocardial infarction) Surgical History H/O tubal ligation History of delivery x 2 Family History Father Diabetes Heart disease Mother Diabetes COPD (chronic obstructive pulmonary disease) Emphysema lung Heart disease Kidney failure Arthritis Social History Smoking and tobacco status: current every day smoker Quit status (tobacco): not considering quitting Second hand smoke exposure: No Smoking risk assessment/counseling performed?: Yes Desire information about alcohol rehabilitation?: No Counseling given: No Substance/Drug Use: never Desire information about substance/drug rehabilitation?: No Counseling given: No Adopted: No Caregiver/support person: No Lives independently: Yes Housing: House Marital status: Number of children: 2 Highest education level completed: 9th Grade service: No Physical Exam Const: COMMON NORMALS: no acute distress, average body habitus, patient oriented x3, no limitations, healthy appearing, alert and well nourished HENMT: COMMON NORMALS: normocephalic, atraumatic, hearing grossly normal bilaterally, external ears normal, Normal external nose present and moist oral mucous membranes HEAD & SCALP: normocephalic and atraumatic NOSE: Normal external nose present EXTERNAL EAR: Yes external ears normal Eye: COMMON NORMALS: Equal, round and reactive pupils present, EOMs intact bilaterally, conjunctivae normal and no scleral icterus CONJUNCTIVA: Yes conjunctivae normal PUPIL: Yes Equal, round and reactive pupils present Neck/C-Spine: COMMON NORMALS: no JVD Lymph: LYMPHATIC: no lymphadenopathy noted Chest: COMMONS NORMALS: normal inspection of the chest and normal palpation of entire chest wall Resp: COMMON NORMALS: normal respiratory effort, No retractions, No use of accessory muscles and clear to auscultation bilaterally AUSCULTATION: clear to auscultation bilaterally Cardio: COMMON NORMALS: no JVD, regular rate, regular rhythm, S1 normal heart sound present and S2 normal heart sound present RATE: regular rate RHYTHM: regular rhythm HEART SOUNDS: S1 normal heart sound present and S2 normal heart sound present GI: COMMON NORMALS: Normal to inspection, nondistended, normoactive bowel sounds present, Soft to palpation, non-tender and No hepatosplenomegaly present PALPATION: Yes Soft to palpation and Yes No hepatosplenomegaly present : COMMON NORMALS: Yes no CVA tenderness BLADDER/KIDNEY EXAM: Yes no CVA tenderness Back/Pelvis: COMMON NORMALS: no CVA tenderness Neuro: COMMON NORMALS: patient oriented x3 SENSORIUM/ORIENTATION: Yes alert Course Vital Signs: Vital signs: Vital Signs Temperature 97.8 F 10/16/22 14:17 Pulse Rate 87 10/16/22 14:17 Respiratory Rate 16 10/16/22 14:17 Blood Pressure 138/91 10/16/22 14:17 Pulse Oximetry 100 10/16/22 14:17 Oxygen Delivery Me thod Room Air 10/16/22 14:17 MDM - Chest Pain Medical Decision Making Patient presents to the ER with complaints of chest pain. Patient admits to having an abnormal stress test done by Dr. Yang yesterday. The normal chest pain work-up was started. Dr. Mcconnell actually called to make for sure the patient was going to get admitted because of his extensive coronary artery disease, history of 1 stent and abnormal stress test yesterday. He is going to take the patient for angiogram in the morning. Patient will be admitted to the hospitalist. Differential Diagnosis Unlikely acute massive pulmonary embolism, acute respiratory failure, acute myocardial infarction, cardiac arrest or sudden cardiac Medical Records I reviewed the patient's medical records. Lab Data I reviewed the patient's lab results. 10/16/22 15:15 10/16/22 15:15 Radiology Impressions Chest X-Ray 10/16/22 14:48 IMPRESSION: No acute findings. Laboratory Results WBC 10.6 10^3/uL (4.0-10.0) H 10/16/22 15:15 RBC 5.13 10^6/uL (4.1-5.3) 10/16/22 15:15 Hgb 14.7 g/dL (11.5-15.3) 10/16/22 15:15 Hct 45.1 % (37.0-47.0) 10/16/22 15:15 MCV 87.9 fl (81-99) 10/16/22 15:15 MCH 28.7 pg (28.0-34.0) 10/16/22 15:15 MCHC 32.6 g/dL (30.0-36.0) 10/16/22 15:15 RDW 13.0 % (12.1-15.1) 10/16/22 15:15 Plt Count 287 10^3/cmm (130-400) 10/16/22 15:15 MPV 9.3 fL (7.4-10.4) 10/16/22 15:15 Neut % (Auto) 66.5 % 10/16/22 15:15 Lymph % (Auto) 26.4 % 10/16/22 15:15 [place] % (Auto) 5.3 % 10/16/22 15:15 Eos % (Auto) 1.1 % 10/16/22 15:15 Baso % (Auto) 0.4 % 10/16/22 15:15 Neut # (Auto) 7.02 10^3/uL (1.8-7.7) 10/16/22 15:15 Lymph # (Auto) 2.8 10^3/uL (0.8-4.8) 10/16/22 15:15 [place] # (Auto) 0.6 10^3/uL (0.2-0.9) 10/16/22 15:15 Eos # (Auto) 0.1 10^3/uL (0.0-0.8) 10/16/22 15:15 Baso # (Auto) 0.0 10^3/uL (0.0-0.1) 10/16/22 15:15 Nucleated RBC % (auto) 0 % 10/16/22 15:15 Nucleated RBCs # 0.0 /100WBC 10/16/22 15:15 Sodium 137 mmol/L (136-145) 10/16/22 15:15 Potassium 3.6 mmol/L (3.5-5.1) 10/16/22 15:15 Chloride 100 mmol/L (98-107) 10/16/22 15:15 Carbon Dioxide 23 mmol/L (22-29) 10/16/22 15:15 Anion Gap 17.6 (5-19) 10/16/22 15:15 BUN 11 mg/dL (6-20) 10/16/22 15:15 Creatinine 0.3 mg/dL (0.5-0.9) L 10/16/22 15:15 GFR Calculation 254.7 mL/min (90-130) H 10/16/22 15:15 Glucose 207 mg/dL (65-115) H 10/16/22 15:15 Calculated Osmolality 289 mOsm/kg (285-295) 10/16/22 15:15 Calcium 8.9 mg/dL (8.5-10.5) 10/16/22 15:15 Total Bilirubin 0.3 mg/dL (0.15-1.2) 10/16/22 15:15 AST 12 U/L (0-32) 10/16/22 15:15 ALT 16 U/L (0-33) 10/16/22 15:15 Alkaline Phosphatase 63 U/L (35-105) 10/16/22 15:15 Troponin T Baseline 6 ng/L (0-10) 10/16/22 15:15 NT-Pro-B Natriuret Pep 79 pg/mL (0-125) 10/16/22 15:15 Total Protein 6.7 g/dL (6.6-8.7) 10/16/22 15:15 Albumin 4.0 g/dL (3.5-5.2) 10/16/22 15:15 Globulin 2.7 g/dL (1.3-4.6) 10/16/22 15:15 EKG Data EKG 1: I personally reviewed and interpreted this EKG as follows: EKG interpretation date: 10/16/22 EKG interpretation time: 01:42 Prior EKG tracings: not available for review Interpretation: EKG showed normal sinus rhythm with ventricular rate of 78 bpm, DE interval 139, QRS duration 92, QTc of 395, possible anterior MO of indeterminate origin with Q waves in V3 and V4. Discharge Plan Discharge Patient Disposition: Admitted As Inpatient Clinical Impression: Chest pain, Abnormal cardiovascular stress test Condition: Stable Prescriptions: No Action Jardiance 10 mg tablet 10 mg PO QAM Qty: 30 1RF nitroglycerin [Nitrostat] 0.4 mg tablet, sublingual 0.4 mg sublingual Q5M PRN (Reason: chest pain) Qty: 25 1RF Rx Instructions: do not exceed 3 doses per episode atorvastatin 40 mg tablet 40 mg PO DAILY Qty: 90 2RF (DME) Dexcom G6 Transmitter Device See Rx Instructions .ROUTE .MEDSUPPLY Qty: 2 2RF Rx Instructions: change every 90 days (DME) Dexcom G6 Sensor Device See Rx Instructions .ROUTE .MEDSUPPLY Qty: 9 2RF Rx Instructions: change every 10 days (DME) 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 See Rx Instructions .ROUTE .MEDSUPPLY Qty: 1 2RF Rx Instructions: Change once every year (DME) blood-glucose meter [OneTouch Ultra2 Meter] Kit See Rx Instructions .Route Qty: 1 0RF Rx Instructions: check sugar 4-6 times a day (DME) OneTouch Ultra Test Strip See Rx Instructions .Route Qty: 400 1RF Rx Instructions: checck sugar 4-6 times (DME) lancets [OneTouch UltraSoft Lancets] Misc See Rx Instructions .Route Qty: 200 1RF Rx Instructions: As directed aspirin 81 mg tablet,delayed release (DR/EC) 81 mg PO DAILY 30 Days Qty: 30 5RF clopidogrel 75 mg tablet 75 mg PO DAILY 30 Days Qty: 30 5RF metoprolol succinate 25 mg tablet extended release 24 hr 25 mg PO DAILY 30 Days Qty: 30 4RF insulin glargine [Lantus Solostar U-100 Insulin] 100 unit/mL (3 mL) insulin pen 10 unit SUBCUT DAILY 60 Days Qty: 15 0RF meloxicam 15 mg tablet 15 mg PO DAILY Novolog FlexPen U-100 Insulin 100 unit/mL (3 mL) insulin pen 10 unit SUBCUT TID MDD 40 Rx Instructions: Inject subcu, 3 times daily, after meals, based on sliding scale provided Referrals: Kasey Naqvi DO [Primary Care Provider] - Coding Level of Care Code ED Business Services Associate for Marii Alegria
[2022-10-16 15:35] LABS: Basophils % 0.4 %; Eosinophils # 0.1 10^3/uL (0.0-0.8); Eosinophils % 1.1 %; Hematocrit 45.1 % (37.0-47.0); Hemoglobin 14.7 g/dL (11.5-15.3); Lymphocytes # 2.8 10^3/uL (0.8-4.8); Lymphocytes % 26.4 %; Mean Corpuscular HGB Conc 32.6 g/dL (30.0-36.0); Mean Corpuscular Hemoglobin 28.7 pg (28.0-34.0); Mean Corpuscular Volume 87.9 fl (81-99); Mean Platelet Volume 9.3 fL (7.4-10.4); Monocytes # 0.6 10^3/uL (0.2-0.9); Monocytes % 5.3 %; Neutrophils # 7.02 10^3/uL (1.8-7.7); Neutrophils % 66.5 %; Nucleated Red Blood Cells % 0 %; Platelet Count 287 10^3/cmm (130-400); Red Blood Count 5.13 10^6/uL (4.1-5.3); White Blood Count 10.6 10^3/uL (4.0-10.0)
[2022-10-16 15:55] LABS: Troponin(5th) Baseline 6 ng/L (0-10)
[2022-10-16 16:03] LABS: Alanine Aminotransferase 16 U/L (0-33); Alkaline Phosphatase 63 U/L (35-105); Anion Gap 17.6 (5-19); Aspartate Amino Transferase 12 U/L (0-32); Blood Urea Nitrogen 11 mg/dL (6-20); Calcium 8.9 mg/dL (8.5-10.5); Carbon Dioxide 23 mmol/L (22-29); Chloride 100 mmol/L (98-107); Globulin 2.7 g/dL (1.3-4.6); Glomerular Filtration Rate 254.7 mL/min (90-130); Glucose 207 mg/dL (65-115); NT Pro B Type Natriuretic Pept 79 pg/mL (0-125); Osmolality Calculated 289 mOsm/kg (285-295); Potassium 3.6 mmol/L (3.5-5.1); Sodium 137 mmol/L (136-145); Total Bilirubin 0.3 mg/dL (0.15-1.2); Total Protein 6.7 g/dL (6.6-8.7)
--- NOTE | 2022-10-16 16:48 | ECG_ITS ---
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 Measurements Intervals [place] Rate: 48 P: 33 [place]: 153 QRS: 24 QRSD: 93 T: 37 QT: 420 QTc: 379 Interpretive Statements SINUS BRADYCARDIA WITH sinus arrhythmia Compared to ECG 10/16/2022 14:22:38 Sinus rhythm no longer present Myocardial infarct finding no longer present Electronically Signed On 10-17-2022 0:31:40 CDT by Pam Subramanian M.D. [id number]
--- NOTE | 2022-10-16 18:07 | P.HP_ITS ---
Providers/Chief Complaint Admitting Physician: Carlitos Norton MD Primary Care Provider: Kasey Naqvi DO Chief Complaint: blood in mouth, chest pain, sent by Leta History of Present Illness Oralia Moralez is a 36 year old female with a past medical history of CAD, recent RCA stenting, history of type 2 diabetes mellitus, who presents to [facility] as she had a positive stress test, she has been complaining of intermittent chest pain for the last few weeks, nonradiating, no shortness of breath, lightness, dizziness, no diaphoresis, denies any active chest pain, she tells me her blood sugars are well controlled, she had a stress test done yesterday which showed area of ischemia concerning for LAD and left circumflex territory, she was told by Dr. Gillette's office to come to the hospital. Review of Systems Card: Reports: chest pain Resp: Denies: dyspnea Medications/Allergies Home Medications Medication Instructions Recorded Confirmed Last Taken Type blood sugar diagnostic (OnetoOnetextTouch #400 ea 07/12/22 10/16/22 Unknown Rx Ultra Test strips) blood-glucose meter (OnetoOnetextTouch #1 ea 07/12/22 10/16/22 Unknown Rx Ultra2 Meter kit) lancets (OnetoOnetextTouch UltraSoft #200 ea 07/12/22 10/16/22 Unknown Rx Lancets) aspirin 81 mg tablet,delayed 81 mg PO DAILY 30 days #30 tabs 08/07/22 10/16/22 10/16/22 Rx release clopidogrel 75 mg tablet 75 mg PO DAILY 30 days #30 tabs 08/07/22 10/16/22 10/16/22 Rx metoprolol succinate 25 mg 25 mg PO DAILY 30 days #30 tabs 08/07/22 10/16/22 10/16/22 Rx tablet,extended release 24 hr atorvastatin 40 mg tablet 40 mg PO DAILY #90 tabs 08/10/22 10/16/22 10/15/22 Rx blood-glucose meter,continuous #1 ea 08/10/22 10/16/22 Unknown Rx (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) blood-glucose sensor (Dexcom G6 #9 ea 08/10/22 10/16/22 Unknown Rx Sensor device) blood-glucose transmitter (Dexcom #2 ea 08/10/22 10/16/22 Unknown Rx G6 Transmitter device) nitroglycerin 0.4 mg sublingual 0.4 mg sublingual Q5M PRN chest 09/11/22 10/16/22 Unknown Rx tablet (Nitrostat) pain #25 tabs empagliflozin 10 mg tablet 10 mg PO QAM #30 tabs 09/25/22 10/16/22 10/16/22 Rx (Jardiance) insulin glargine 100 unit/mL (3 10 unit (0.1 mL) SUBCUT DAILY 60 10/10/22 10/16/22 10/16/22 Rx mL) subcutaneous pen (Lantus days #15 mL Solostar U-100 Insulin) insulin aspart U-100 100 unit/mL 10 unit SUBCUT TID 10/16/22 10/16/22 Unknown History (3 mL) subcutaneous pen (Novolog FlexPen U-100 Insulin aspart) meloxicam 15 mg tablet 15 mg PO DAILY 10/16/22 10/16/22 10/16/22 History Allergies Allergy/AdvReac Type Severity Reaction Status Date / Time No Known Allergies Allergy Verified 10/15/22 08:28 PFSH Acute PFSH: Medical History CAD (coronary artery disease) delivery delivered Diabetes type 2, uncontrolled High cholesterol Osteoarthritis of left knee STEMI (ST elevation myocardial infarction) Surgical History H/O tubal ligation History of delivery x 2 Family History Father Diabetes Heart disease Mother Diabetes COPD (chronic obstructive pulmonary disease) Emphysema lung Heart disease Kidney failure Arthritis Social History Smoking and tobacco status: current every day smoker Quit status (tobacco): not considering quitting Second hand smoke exposure: No Smoking risk assessment/counseling performed?: Yes Desire information about alcohol rehabilitation?: No Counseling given: No Substance/Drug Use: never Desire information about substance/drug rehabilitation?: No Counseling given: No Adopted: No Caregiver/support person: No Lives independently: Yes Housing: House Marital status: Number of children: 2 Highest education level completed: 9th Grade service: No Vitals/I&O/Wt Last Vital Signs Temp 97.8 F 10/16/22 14:17 Pulse 87 10/16/22 14:17 Resp 16 10/16/22 14:17 BP 138/91 10/16/22 14:17 Pulse Ox 100 10/16/22 14:17 O2 Del Method Room Air 10/16/22 14:17 Weight last 48 hrs Weight 95.254 kg Physical Exam Const: COMMON NORMALS: no acute distress and patient oriented x3 HENMT: COMMON NORMALS: normocephalic Eye: COMMON NORMALS: Equal, round and reactive pupils present and EOMs intact bilaterally Neck/C-Spine: COMMON NORMALS: full ROM and no lymphadenopathy Resp: COMMON NORMALS: normal respiratory effort, No retractions, No use of accessory muscles and clear to auscultation bilaterally AUSCULTATION: clear to auscultation bilaterally Cardio: COMMON NORMALS: regular rate, regular rhythm, S1 normal heart sound present and S2 normal heart sound present RATE: regular rate RHYTHM: r egular rhythm HEART SOUNDS: S1 normal heart sound present and S2 normal heart sound present GI: COMMON NORMALS: Normal to inspection, nondistended, normoactive bowel sounds present, Soft to palpation and non-tender Extremity: COMMON NORMALS: no pedal edema Neuro: COMMON NORMALS: patient oriented x3, CN's II-XII intact bilaterally and no focal motor deficits Psych: COMMON NORMALS: mental status grossly normal Data 10/16/22 15:15 10/16/22 15:15 A&P Assessment and plan (1) Chest pain: Qualifiers: Chest pain type: unspecified Qualified Code(s): R07.9 - Chest pain, unspecified (2) Abnormal cardiovascular stress test: Plan Chest pain, with positive stress test -No active chest pain Serial EKGs, troponins, telemetry monitoring -Aspirin, statin, Plavix, beta-andi -N.p.o. at midnight, plans on coronary angiography tomorrow morning, cardiology consulted -Continue low-dose sliding scale -Full code -Lovenox for DVT prophylaxis Attestations Medical Necessity Statement*: Patient requires hospitalization, outpatient observation, for chest pain Diagnoses Chest pain R07.9 Chest pain type: unspecified Abnormal cardiovascular stress test R94.39
[2022-10-16 18:14] LABS: Troponin 5 2HR Delta 0 ABS# (0-10)
[2022-10-16 18:31] LABS: C Reactive Protein 10.6 mg/L (0.0-4.9)
[2022-10-16 18:33] LABS: Erythrocyte Sedimentation Rate 24 mm/hr (0-15)
[2022-10-16 18:39] LABS: Procalcitonin 0.02 ng/mL (0-0.5)
[2022-10-16] MEDS: enoxaparin 40 mg/0.4 mL Syringe SUBCUT (18:53)
--- NOTE | 2022-10-16 18:58 | PM.CONSULT ---
Providers/Reason For Consult Consulting Physician/Specialty*: Cardiovascular medicine Reason for Consult*: Chest pain, abnormal stress test Requesting Physician: Hospitalist Attending Physician: Carlitos Norton MD Primary Care Provider: Kasey Naqvi DO History of Present Illness History of Present Illness Oralia Moralez is a 36 year old female who was she has a history of diabetes which is not well controlled or treated, dyslipidemia, obesity and tobacco abuse. She had a acute myocardial infarction in the anterior wall in June of this year and had an LAD stent placed. At that time she had a 60% circumflex lesion and severe diffuse disease of the right coronary artery with an occlusion of the distal vessel. Apparently she has been having chest pain ever since the stent was placed. Because of this another stress test was performed yesterday. This was read as a large reversible defect in the distribution of the LAD and circumflex. She was told about this this morning and began to have more chest pain. She was then told to go to the emergency room. There is some nebulous history of her awakening this morning with blood in her mouth. That does not seem to be present at this time. Her EKGs are unchanged. Her troponins are 6 and 6. Other labs are unremarkable. Review of Systems Narrative: Her review of systems is diffusely positive Medications/Allergies Home Medications Medication Instructions Recorded Confirmed Last Taken Type blood sugar diagnostic (OneTouch #400 ea 07/12/22 10/16/22 Unknown Rx Ultra Test strips) blood-glucose meter (OneTouch #1 ea 07/12/22 10/16/22 Unknown Rx Ultra2 Meter kit) lancets (OneTouch UltraSoft #200 ea 07/12/22 10/16/22 Unknown Rx Lancets) aspirin 81 mg tablet,delayed 81 mg PO DAILY 30 days #30 tabs 08/07/22 10/16/22 10/16/22 Rx release clopidogrel 75 mg tablet 75 mg PO DAILY 30 days #30 tabs 08/07/22 10/16/22 10/16/22 Rx metoprolol succinate 25 mg 25 mg PO DAILY 30 days #30 tabs 08/07/22 10/16/22 10/16/22 Rx tablet,extended release 24 hr atorvastatin 40 mg tablet 40 mg PO DAILY #90 tabs 08/10/22 10/16/22 10/15/22 Rx blood-glucose meter,continuous #1 ea 08/10/22 10/16/22 Unknown Rx (Dexcom G6 Engine Turner) blood-glucose sensor (Dexcom G6 #9 ea 08/10/22 10/16/22 Unknown Rx Sensor device) blood-glucose transmitter (Dexcom #2 ea 08/10/22 10/16/22 Unknown Rx G6 Transmitter device) nitroglycerin 0.4 mg sublingual 0.4 mg sublingual Q5M PRN chest 09/11/22 10/16/22 Unknown Rx tablet (Nitrostat) pain #25 tabs empagliflozin 10 mg tablet 10 mg PO QAM #30 tabs 09/25/22 10/16/22 10/16/22 Rx (Jardiance) insulin glargine 100 unit/mL (3 10 unit (0.1 mL) SUBCUT DAILY 60 10/10/22 10/16/22 10/16/22 Rx mL) subcutaneous pen (Lantus days #15 mL Solostar U-100 Insulin) insulin aspart U-100 100 unit/mL 10 unit SUBCUT TID 10/16/22 10/16/22 Unknown History (3 mL) subcutaneous pen (Novolog FlexPen U-100 Insulin aspart) meloxicam 15 mg tablet 15 mg PO DAILY 10/16/22 10/16/22 10/16/22 History Allergies Allergy/AdvReac Type Severity Reaction Status Date / Time No Known Allergies Allergy Verified 10/15/22 08:28 Current Medications Generic Name Dose Route Start Last Admin Trade Name Freq PRN Reason Stop Dose Admin Enoxaparin Sodium 40 mg 10/16/22 18:30 10/16/22 18:53 Enoxaparin 40 Mg/0.4 Ml Syringe SUBCUT 40 mg Q24H QUIN Administration PFSH Acute PFSH: Medical History CAD (coronary artery disease) delivery delivered Diabetes type 2, uncontrolled High cholesterol Osteoarthritis of left knee STEMI (ST elevation myocardial infarction) Surgical History H/O tubal ligation History of delivery x 2 Family History Father Diabetes Heart disease Mother Diabetes COPD (chronic obstructive pulmonary disease) Emphysema lung Heart disease Kidney failure Arthritis Social History Smoking and tobacco status: current every day smoker Quit status (tobacco): not considering quitting Second hand smoke exposure: No Smoking risk assessment/counseling performed?: Yes Desire information about alcohol rehabilitation?: No Counseling given: No Substance/Drug Use: never Desire information about substance/drug rehabilitation?: No Counseling given: No Adopted: No Caregiver/support person: No Lives independently: Yes Housing: House Marital status: Number of children: 2 Highest education level completed: 9th Grade service: No Vitals/I&O/Wt Last Vital Signs Temp 97.8 F 10/16/22 14:17 Pulse 70 10/16/22 18:41 Resp 24 H 10/16/22 18:41 BP 118/72 10/16/22 18:41 Pulse Ox 96 10/16/22 18:41 O2 Del Method Room Air 10/16/22 18:12 Weight last 48 hrs Weight 210 lb Physical Exam Narrative: GENERAL: In general she appears unhappy and not in a very good mood HEENT: Exam within normal limits. NECK: Supple without jugular vein distention. The carotid upstroke is normal without bruits. BACK: Exam normal. LUNGS: Clear. HEART: Regular rate and rhythm. ABDOMEN: Benign without organomegaly or tenderness. EXTREMITIES: No edema. NEUROLOGIC: Exam normal. SKIN: Unremarkable. Data 10/16/22 15:15 10/16/22 15:15 A&P Assessment and plan (1) Chest pain: Qualifiers: Chest pain type: unspecified Qualified Code(s): R07.9 - Chest pain, unspecified (2) Abnormal cardiovascular stress test: (3) CAD (coronary artery disease): Qualifiers: Coronary Disease-Associated Artery/Lesion type: [place] artery [place] vs. transplanted heart: [place] heart (4) STEMI (ST elevation myocardial infarction): Qualifiers: Involved coronary artery: right coronary artery Qualified Code(s): I21.11 - ST elevation (STEMI) myocardial infarction involving right coronary artery (5) Family history of premature CAD: (6) Nicotine dependence, cigarettes, with unspecified nicotine-induced disorders: (7) Diabetes type 2, uncontrolled: Qualifiers: Glycemic state: with hyperglycemia Qualified Code(s): E11.65 - Type 2 diabetes mellitus with hyperglycemia (8) Hypercholesteremia: Plan She has been admitted to the hospitalist service. We will try to fit her into the catheterization schedule tomorrow morning. Consult Attestations Medical Necessity Statement: Admitted for chest pain and abnormal stress test. and Moderate Time for a total of 40 minutes, includes reviewing past or interval history, examining/interviewing patient, placing orders, counseling patient/family/other support, updating patient/family/other support, discussing plan of care with staff, communicating with other healthcare providers, documenting encounter and coordinating care Diagnoses Chest pain R07.9 Chest pain type: unspecified Abnormal cardiovascular stress test R94.39 CAD (coronary artery disease) I25.10 Coronary Disease-Associated Artery/Lesion type: [place] artery [place] vs. transplanted heart: [place] heart STEMI (ST elevation myocardial infarction) I21.11 Involved coronary artery: right coronary artery Family history of premature CAD Z82.49 Nicotine dependence, cigarettes, with unspecified nicotine-induced disorders F17.219 Diabetes type 2, uncontrolled E11.65 Glycemic state: with hyperglycemia Hypercholesteremia E78.00
--- NOTE | 2022-10-16 18:58 | PC.NURSE ---
Patient does not like to be asked a lot of questions. When instructional writer was asking admission questions, the mother answered most of them. On the way from the ER the mother was following behind patient in wheelchair and stated this is bullshit and got out of the wheelchair and put her mother, who is not the patient, in the wheelchair. Patient is currently refusing to put on a hospital gown and states she will if she absolutely has to.
[2022-10-16 19:15] LABS: Chol HDL Ratio 6.13 mg/dL (0.0-4.40); Cholesterol 141 mg/dL (0-200); HDL Cholesterol 23 mg/dL (60-100); LDL Cholesterol Calculated 75 mg/dL (50-129); LDL HDL Ratio 3.26 RATIO (0.00-3.22); Thyroid Stimulating Hormone 0.94 uIU/mL (0.27-4.20); Triglycerides 217 mg/dL (0-150)
--- NOTE | 2022-10-16 20:48 | ECG_ITS ---
[facility] Test Date: 2022-10-16 Pat Name: Oralia Moralez Department: Room: 106 Gender: Female Patent Examiner: : 1985 Requested By: Leander Rodríguez Order Number: [id number] Maki MD: Kirk Betancourt M.D. Measurements Intervals [place] Rate: 69 P: 34 DE: 155 QRS: 30 QRSD: 98 T: 47 QT: 395 QTc: 424 Interpretive Statements SINUS RHYTHM Compared to ECG 10/16/2022 17:12:32 No significant changes Electronically Signed On 10-17-2022 14:21:34 CDT by Kirk Betancourt M.D. [email or web address]
[2022-10-16 21:01] LABS: Glucose Point of Care 204 mg/dL (70-110)
[2022-10-16 22:11] LABS: Troponin 5 6HR Delta 0 ng/L (0-12)
[2022-10-17] VITALS (55 sets, daily range): BP systolic 111–158; BP diastolic 55–101; PULSE 56–92; RESP 9–28; TEMP 36.4–36.7; O2SAT 95–99
--- NOTE | 2022-10-17 00:18 | PC.NURSE ---
Spoke with regrading patients NPO diet, switched diet to NPO except medications.
[2022-10-17 06:31] LABS: Glucose Point of Care 141 mg/dL (70-110)
--- NOTE | 2022-10-17 06:55 | XACV_ITS ---
Exam Room: 2 Ht: 168 cm Wt: 95 kg BSA: 2.14 m2 Gender: Female : 1985 Exam Priority: Routine Procedure(s): Procedure Description: Diagnostic procedure Procedure Description: Left Heart Catheterization Procedure Description: Left ventriculography Procedure Description: Coronary Angiography [place] FLEMING; Diagnostic Cath Status: Urgent Diagnostic Findings * INDICATION: 36-year-old woman with past medical history of diabetes, recent anterior STEMI in June 2022 with PCI of mid LAD who has been having worsening typical chest pain symptoms. She had stress test yesterday that was showing large area of ischemia in LAD and left circumflex artery territories. Given her unstable anginal symptoms, she came to the hospital and had a coronary angiogram performed today. * Left Main has no significant disease. * LAD has a proximal 80% stenosis. * In the midsegment * there is a patent prior stent. Proximal to the stent, there is a 70% stenosis noted. * P * roximal Left Anterior Descending: significant 80% stenosis, PARAS: 3 flow. * RCA is a small to medium sized vessel. Mid Right Coronary Artery: severe 90% stenosis, PARAS: 3 flow. Distally is a diffusely diseased artery.. * Mid Left Anterior Descending: obstructive 70% stenosis, PARAS: 3 flow. * Mid Circumflex: significant 80% stenosis, PARAS: 3 flow. * Coronary angiography shows co-dominance. Conclusions 1. Severe multivessel coronary artery disease including severe proximal 2. LAD 3. , 4. mid LAD 5. , mid left circumflex artery 6. and mid RCA stenoses.. 7. Normal left ventricular systolic function. Ejection fraction of 50%. Recommendations * Patient will be transferred to tertiary care center for CABG as has multivessel disease, proximal LAD stenosis and diabetes. Interventional RX Recommendation: CABG Diagnostic RX Recommendation: CABG Ventriculography Ejection Fraction: 50.0 % Pressures Phase:Rest AO : 121 / 76 ( 97 ) @ 10:10:00 AM 142 / 77 ( 101 ) @ 10:14:00 AM 134 / 68 ( 96 ) @ 10:19:00 AM 133 / 68 ( 96 ) @ 10:19:00 AM LV : 110 / -13 / 10 @ 10:17:00 AM 127 / -12 / 15 @ 10:19:00 AM 124 / -13 / 14 @ 10:19:00 AM Valves Phase:DefaultPhase AV : 0.0 @ 9:27:57 AM 0.0 @ 9:27:57 AM AV Mean Gradient: 0.0 @ 9:27:57 AM 0.0 @ 9:27:57 AM Clinical Evaluation EBL: 5mL-10mL Procedural Details Procedure Consent Obtained. Admit Source: Out Patient. Pre-Procedure Time Out. Identified patient by full name and date of as verbalized by the patient/guarantor. Does the consent match the physician's order: Yes. Accurate & Complete Informed Consent: Yes. Inpatient/Outpatient History & Physical on Chart: Yes. If H&P is completed, is and addenduem needed: No; If yes, is the addendum complete: N/A. Visualize and Verify Site with Patient/Guarantor: N/A. Relevant Radiology Images available: N/A. The risks, benefits, and alternatives of sedation and/or procedure were discussed by physician. The patient agrees to continue. Procedure started. [facility] Clinical Fraility Score: 4: Vulnerable. Turret Lathe Tender Indications: Worsening Angina. Chest Pain Symptom Assessment: Typical Angina Symptoms. Cardiovascular Instability:no. Correct patient, site and procedure confirmed by cath team. Current diagnosis: Stable angina. PERRLA. Strong, equal hand food and beverage service manager bilaterally. Lungs clear x 5 lobes. IV Site on Arrival: 20 gauge in the right anticubital. IV Fluids: 0.9% NaCl at KVO. 0 mL infused prior to cleaning laborer. Pre Procedural Pulses: bilateral dorsalis pedis was 3+. Pre Procedural Pulses: bilateral dorsalis pedis was 3+. Oxygen started at 2liters/min via nasal canula. bilateral groins was prepped with chloroprep then draped in the usual sterile fashion. Physician notified. Baseline sample Acquired. HR: 68 BPM. Physician arrived. Physician scrubbed in. Immediate Pre-Procedure Time Out. Correct Patient: Yes; Correct Procedure: Yes; Correct Site: Yes; Correct Patient Position: Yes; Correct Supplies: Yes; Dried Flammable Prep: Yes; Blood Products Available: N/A;. Lidocaine 1% infiltrated to the right groin. An attempt to gain access to the right femoral artery was unsuccessful. Manual pressure was held as needed to stop the bleeding. Ultrasound used to assist in access. Arterial access obtained with micropuncture set. A 5 [place] island[place] JL4 catheter in over wire. Multiple views taken of left coronary artery. Catheter out. A 5 [place] islander JR4 catheter in over wire. Multiple views taken of right coronary artery. Catheter out. A 5 [place] islander Angled Pig catheter in over wire. EDP Sample taken: LV 110/-14,10; HR: 65 BPM; SpO2: 96%. LV gram performed in GOINS @ 10 mL/second for a total of 30 mL. EDP Sample taken: LV 127/-13,15; HR: 73 BPM; SpO2: 97%. Pullback taken: LV 124/-14,14; AO 134/68(96); Mean: 0mmHg, Peak to Peak: 0mmHg, SEP: 7sec/min; HR: 78 BPM; SpO2: 97%. Catheter out. A Right femoral angiogram was performed to determine safe placement of closure device. wire out. PERRLA. Strong, equal hand food and beverage service manager bilaterally. No VTE prophylaxis required. A Suture was successful obtaining hemostatsis at the Right Femoral artery insertion site. Post-op diagnosis: severe mulitvessel CAD. Medication's Wasted: Heparin = 4000 units. Medication's Wasted: Other = versed 1 mg. Medication's Wasted: Other = 50 fentanyl mcg. Total IV fluids: 45 mL. Complications: none. Estimated blood loss: 5mL-10mL. Responsiveness - Normal response to verbal stimuli; alert and oriented, PERRLA. Airway - Unaffected, no intervention required; spontaneous ventilation. Circulation: W/N/L, pulses unchanged. Nausea/Vomiting: No. Procedure completed. Patient transferred by bed to 1st floor. Vital chart was stopped. Access Site Site: Right Femoral artery Sheath Size: 6 Fr Hemostasis Method: Suture Hemostasis Success: Successful Procedure Medications Start: 8:56 AM Stop: 8:56 AM Medication: Versed Amount: 1 mg Route: I.V. Start: 8:56 AM Stop: 8:56 AM Medication: Fentanyl Amount: 50 mcg Route: I.V. I, the attending physician, have reviewed and verified all procedure medications. Yes, all medications given per verbal order History/Risk Factors Hypertension: No Dyslipidemia: No Peripheral Arterial Disease (PAD): No Myocardial Infarction (MS): No Obesity: No Tobacco Use: Current/Recent(w/in 1 year) Prior Interventions PCI: Yes CABG: No Valve Surgery: No Date of PCI: 07/10/2022 Report Signatures Finalized by Michael Gillette MD on 10/17/2022 09:59 AM
--- NOTE | 2022-10-17 08:15 | PM.PN ---
Subjective Subjective: Patient did not have chest pain overnight. Troponins have been negative. Coronary angiogram shows severe multivessel CAD with prox and mid LAD stenosis, mid LCx stenosis. Diffusely disease RCA. Prior LAD stent is patent. Vitals/I&O/Wt Last Vital Signs Temp 97.9 F 10/17/22 07:41 Pulse 88 10/17/22 07:41 Resp 16 10/17/22 07:41 BP 154/101 10/17/22 07:41 Pulse Ox 96 10/17/22 07:41 O2 Del Method Room Air 10/17/22 07:41 10/16/22 10/17/22 10/17/22 22:59 06:59 14:59 Intake Total 240 / 240 Balance 240 / 240 Weight last 48 hrs Weight 210 lb Weight 210 lb Physical Exam Narrative: GENERAL: Patient is alert, awake and oriented x3. [] NECK: No jugular vein distension. [] HEENT: No cyanosis. No icterus. No pallor. [] HEART: Regular S1 and S2. No murmur, rub or gallop. [] LUNGS: Clear to auscultate bilaterally. [] CENTRAL NERVOUS SYSTEM: Grossly nonfocal. [] EXTREMITIES: Lower extremities with no edema bilaterally. Data 10/16/22 15:15 10/16/22 15:15 A&P Assessment and plan (1) ST elevation myocardial infarction (STEMI): (2) Diabetes type 2, uncontrolled: Qualifiers: Glycemic state: with hyperglycemia Qualified Code(s): E11.65 - Type 2 diabetes mellitus with hyperglycemia (3) Hypercholesteremia: (4) Family history of early CAD: Plan Patient has multivessel CAD. We will transfer her for pulmonary artery bypass surgery. CT surgery team at [facility] has accepted the transfer and will initiate the process. Continue current medications. LV gram shows preserved LV systolic function. Patient is stable to discharge today. I emphasized the need of compliance with medication and risk factor modification. She understands importance of continuing with dual antiplatelet therapy of aspirin and Plavix. Attestations Medical Necessity Statement*: Care expected to cross 2 midnights. Coding Level of Care Code Acute Code for [facility] Diagnoses ST elevation myocardial infarction (STEMI) I21.3 Diabetes type 2, uncontrolled E11.65 Glycemic state: with hyperglycemia Hypercholesteremia E78.00 Family history of early CAD Z82.49
[2022-10-17] MEDS: aspirin 81 mg EC Tablet PO (08:18)
[2022-10-17] MEDS: pantoprazole DR 40 mg Tablet PO (08:18)
[2022-10-17] MEDS: metoprolol succinate ER (24 HR) 25 mg Tablet PO (08:18)
[2022-10-17] MEDS: atorvastatin 40 mg Tablet PO (08:18)
[2022-10-17] MEDS: clopidogrel 75 mg Tablet PO (08:18)
--- NOTE | 2022-10-17 08:52 | W.PM.OPSUD ---
Surgery/Procedure H&P Update DATE OF PROCEDURE: October 17, 2022 DATE H&P PERFORMED: 10/16/22 H&P UPDATE INFORMATION: I have reviewed H&P completed within last 30 days, I have examined patient prior to procedure and No changes to prior documentation PREOP DIAGNOSIS: Worsening angina/abnormal stress test PRIMARY INDICATION FOR PROCEDURE: Worsening angina/abnormal stress test PLANNED PROCEDURE: Operation Date: 10/17/22 11:30 Proposed Procedures p Cardiac Catheterization(Left) - Michael Gillette MD Possible percutaneous coronary intervention PATIENT REASSESSED PRIOR TO SEDATION, WITH NO CHANGE NOTED: Yes PHYSICAL EXAM: alert, oriented x 3, clear to auscultation bilaterally and regular rate & rhythm AIRWAY EVAL/ANESTHESIA PLAN: normal airway, ASA III, Local Anesthesia, Risks, benefits & alternatives of sedation and/or procedure discussed and Patient agrees to continue as planned ADDITIONAL INFORMATION: Moderate sedation
[2022-10-17] MEDS: sodium chloride 0.9% 1,000 ML 50 ML IV (09:38)
--- NOTE | 2022-10-17 10:26 | PC.NURSE ---
pt left unit at 0841. pt arrived back on unit at 0919
--- NOTE | 2022-10-17 10:34 | PC.CHAP ---
Pastoral Care Encounter/Spiritual Assessment Type of Contact [] Declined nurse practitioner hospitalist visit [] Patient/Family/Request visit [] Outpatient visit [] Follow-up visit [] Physician referral [] Code/Alert [x] Routine visit [] Staff referral [] Actively dying [] Patient sleeping [x] Family support [] [] Out of room [] Palliative care [] [] Receiving care in room [] Pre-surgical visit [] Trauma [] Long length of stay [] ICU visit [] Other: Relational/Emotional Strength x] Patient feels connected with others/family/visitors/staff [] Distress [] Loneliness/isolation [] Abandonment Spirituality of Patient [] Person of Darcie [] Attends Shinto of their Darcie [x] Believes in Prayer [] Reads Bible or Baptism materials [] There are Spiritual issues to be addressed Machine Bander And Cellophaner Interventions [x] Prayer [x] Active listening [] Non-anxious presence [] Spiritual/emotional support [] Crisis/trauma care [] Spiritual counseling [] Bereavement support [] Provided bereavement packet [] Provided Bible/devotional materials [] Provided toy/stuffed animal, coloring book to patient or family member [] Provided Communion [] Anointing/[place] [] Salvation [x] Completed spiritual assessment [] Other: Impact on Illness or Injury [] Angry [] Fearful [] Anxious [] Often cries [] Exhaustion [] Unable to work [] Unable to attend uatsdin [] Unable to walk/stand [] Unable to read [] Unable to drive [] Unable to eat/drink [] Unable to sleep [] Unable to be with family [] Patient intubated [] Other: Summary Time spent with patient 15 min
[2022-10-17 11:34] LABS: Glucose Point of Care 130 mg/dL (70-110)
--- NOTE | 2022-10-17 11:47 | PC.NURSE ---
right femoral arterial sheath removed at 11:06.manual pressure applied.initially difficult to gain control of the site...but w/i minutes control gained and pressure held x 25.small hematoma developed...manually expressed.vss through-out procedure.palpable dp and pt pulses noted and right leg remained warm to touch.pt instructed in activity restrictions s/p femoral artery sheath pull..and instructed to notify staff for any bleeding,pain,numbness,sob, or for any concerns at all.pt verb understanding of instructions
--- NOTE | 2022-10-17 11:49 | PM.PN ---
Subjective Subjective: Patient will need CABG, plan in place to transfer to [facility] by tomorrow morning I have signed the COBRA form Please review cardiac cath report for further details Vitals/I&O/Wt Last Vital Signs Temp 97.9 F 10/17/22 07:41 Pulse 88 10/17/22 07:41 Resp 16 10/17/22 07:41 BP 154/101 10/17/22 07:41 Pulse Ox 96 10/17/22 07:41 O2 Del Method Room Air 10/17/22 07:41 10/16/22 10/17/22 10/17/22 22:59 06:59 14:59 Intake Total 240 / 240 Balance 240 / 240 Weight last 48 hrs Weight 95.254 kg Weight 95.254 kg Physical Exam Narrative: Patient is chest pain-free Bedbugs noted by the nursing staff Currently chest pain-free awake and alert Hemodynamically stable Currently on room air Data 10/16/22 15:15 10/16/22 15:15 A&P Assessment and plan (1) Abnormal cardiovascular stress test: (2) Chest pain: Qualifiers: Chest pain type: unspecified Qualified Code(s): R07.9 - Chest pain, unspecified (3) CAD (coronary artery disease): Qualifiers: Coronary Disease-Associated Artery/Lesion type: [place] artery [place] vs. transplanted heart: [place] heart (4) Family history of premature CAD: (5) Diabetes type 2, uncontrolled: Qualifiers: Glycemic state: with hyperglycemia Qualified Code(s): E11.65 - Type 2 diabetes mellitus with hyperglycemia (6) Hypertension: (7) Bed bug bite: Plan Patient will need CABG Triple-vessel disease on cardiac cath report She will go to [facility], she will get transferred tomorrow morning I have signed the COBRA form Currently chest pain-free Continue antianginal medications Full code Bedbugs noted by the nursing staff She can get bath today, will add antihistamine and topical steroid Cardiac diet She will be n.p.o. after midnight Continue insulin for diabetes Continue aspirin, Plavix, recently had stent placement, I will let cardiology at [facility] decide about her Plavix timing Hypertensive: Optimize antihypertensive regimen, will add lisinopril Attestations Medical Necessity Statement*: Transfer to [facility] by tomorrow Diagnoses Abnormal cardiovascular stress test R94.39 Chest pain R07.9 Chest pain type: unspecified CAD (coronary artery disease) I25.10 Coronary Disease-Associated Artery/Lesion type: [place] artery [place] vs. transplanted heart: [place] heart Family history of premature CAD Z82.49 Diabetes type 2, uncontrolled E11.65 Glycemic state: with hyperglycemia Hypertension I10 Bed bug bite W57.XXXA
[2022-10-17] MEDS: insulin glargine 100 units/1 mL 10 UNIT SUBCUT (11:53)
[2022-10-17 17:47] LABS: Glucose Point of Care 253 mg/dL (70-110)
[2022-10-17] MEDS: enoxaparin 40 mg/0.4 mL Syringe SUBCUT (18:15)
[2022-10-17] MEDS: insulin lispro 100 unit/1 mL SUBCUT (18:15)
[2022-10-17] MEDS: CLONazepam 0.5 mg Tablet 0.25 MG PO (20:38)
[2022-10-17 20:54] LABS: Glucose Point of Care 177 mg/dL (70-110)
[2022-10-18] VITALS (9 sets, daily range): BP systolic 104–137; BP diastolic 58–74; PULSE 61–75; RESP 12–26; TEMP 36.7–37.1; O2SAT 95–96
[2022-10-18 06:08] LABS: Glucose Point of Care 202 mg/dL (70-110)
--- NOTE | 2022-10-18 07:17 | PM.PN ---
Subjective Subjective: Patient is chest pain free. Will be transferred for CABG today Vitals/I&O/Wt Last Vital Signs Temp 98.0 F 10/18/22 06:19 Pulse 71 10/18/22 06:19 Resp 12 10/18/22 06:19 BP 104/58 10/18/22 06:19 Pulse Ox 96 10/17/22 18:00 O2 Del Method Room Air 10/17/22 07:41 10/17/22 10/18/22 10/18/22 22:59 06:59 14:59 Intake Total 1660 / 1900 Balance 1660 / 1900 Weight last 48 hrs Weight 210 lb Weight 210 lb Physical Exam Narrative: GENERAL: Patient is alert, awake and oriented x3. [] NECK: No jugular vein distension. [] HEENT: No cyanosis. No icterus. No pallor. [] HEART: Regular S1 and S2. No murmur, rub or gallop. [] LUNGS: Clear to auscultate bilaterally. [] CENTRAL NERVOUS SYSTEM: Grossly nonfocal. [] EXTREMITIES: Lower extremities with no edema bilaterally. Data 10/16/22 15:15 10/16/22 15:15 A&P Assessment and plan (1) ST elevation myocardial infarction (STEMI): (2) Diabetes type 2, uncontrolled: Qualifiers: Glycemic state: with hyperglycemia Qualified Code(s): E11.65 - Type 2 diabetes mellitus with hyperglycemia (3) Hypercholesteremia: (4) Family history of early CAD: Plan Patient is stable. Will be transferred to [facility] today. Continue current medications Patient will be transferred for CABG. Attestations Medical Necessity Statement*: Care expected to cross 2 midnights. Coding Level of Care Code Acute Code for [employer] Diagnoses ST elevation myocardial infarction (STEMI) I21.3 Diabetes type 2, uncontrolled E11.65 Glycemic state: with hyperglycemia Hypercholesteremia E78.00 Family history of early CAD Z82.49
[2022-10-18] MEDS: insulin glargine 100 units/1 mL 10 UNIT SUBCUT (08:01)
[2022-10-18] MEDS: insulin lispro 100 unit/1 mL SUBCUT (08:01)
[2022-10-18] MEDS: chlorthalidone 25 mg Tablet 12.5 MG PO (08:04)
[2022-10-18] MEDS: atorvastatin 40 mg Tablet PO (08:05)
[2022-10-18] MEDS: clopidogrel 75 mg Tablet PO (08:05)
[2022-10-18] MEDS: lisinopril 10 mg Tablet PO (08:05)
[2022-10-18] MEDS: aspirin 81 mg EC Tablet PO (08:05)
[2022-10-18] MEDS: pantoprazole DR 40 mg Tablet PO (08:05)
[2022-10-18] MEDS: metoprolol succinate ER (24 HR) 25 mg Tablet PO (08:05)
--- NOTE | 2022-10-18 10:24 | PC.NURSE ---
Report given to [facility]#[id number]. Report given to PATO.
--- NOTE | 2022-10-18 10:40 | PM.DCS ---
Discharge Providers Date of Admission: 10/17/22 11:23 Date of Discharge: October 18, 2022 Attending Provider at Admission: Carlitos Norton MD Attending Provider at Discharge: Delaney Leiva MD Primary Care Provider: Kasey Naqvi DO Diagnoses at Discharge Discharge Diagnosis (1) Abnormal cardiovascular stress test: Status: Acute (2) Chest pain: Status: Acute Qualifiers: Chest pain type: unspecified Qualified Code(s): R07.9 - Chest pain, unspecified (3) CAD (coronary artery disease): Status: Acute Qualifiers: Coronary Disease-Associated Artery/Lesion type: [place] artery [place] vs. transplanted heart: [place] heart (4) Family history of premature CAD: Status: Acute (5) Diabetes type 2, uncontrolled: Status: Acute Qualifiers: Glycemic state: with hyperglycemia Qualified Code(s): E11.65 - Type 2 diabetes mellitus with hyperglycemia (6) Hypertension: Status: Acute (7) Bed bug bite: Status: Acute Reason for Visit Reason for Visit: blood in mouth, chest pain, sent by [facility] Course Hospital Course This will consider my transfer summary for the patient 36 female who was admitted after abnormal stress test, patient went for coronary angiogram: Results are as follows Diagnostic Findings ? * INDICATION: 36-year-old woman with past medical history of diabetes, recent anterior STEMI in June 2022 with PCI of mid LAD who has been having worsening typical chest pain symptoms.? She had stress test yesterday that was showing large area of ischemia in LAD and left circumflex artery territories. Given her unstable anginal symptoms, she came to the hospital and had a coronary angiogram performed today. ? * Left Main has no significant disease. ? * LAD has a proximal 80% stenosis. ? * In the midsegment ? * there is a patent prior stent.? Proximal to the stent, there is a 70% stenosis noted. ? * P ? * roximal Left Anterior Descending: significant? 80% stenosis, PARAS: 3 flow. ? * RCA is a small to medium sized vessel.? Mid Right Coronary Artery: severe 90% stenosis, PARAS: 3 flow. Distally is a diffusely diseased artery.. ? * Mid Left Anterior Descending: obstructive? 70% stenosis, PARAS: 3 flow. ? * Mid Circumflex: significant? 80% stenosis, PARAS: 3 flow. ? * Coronary angiography shows co-dominance. Conclusions ? 1. Severe multivessel coronary artery disease including severe proximal ? 2. LAD ? 3. , ? 4. mid LAD ? 5. , mid left circumflex artery ? 6. and mid RCA stenoses.. ? 7. Normal left ventricular systolic function. Ejection fraction of 50%. Triple-vessel disease she has been accepted at [facility] for CABG. Patient remained chest pain-free throughout her hospitalization currently on room air blood pressure is stable. Please note bedbugs have been noticed by the staff, she was given antihistamine and some steroids for her itching, Hemoglobin A1c around 8, triglyceride 217, LDL 75, HDL 23, cholesterol 141, TSH 0.94 Patient and family is in agreement for the CABG procedure at [facility] Physical Exam Narrative: Awake and alert S1, S2 GCS 15 Room air no active shortness of breath Discharge Data Studies Completed and Pending Completed Studies During Hospitalization Category Date Time Status IRRIGATION TECHNICIAN request for service Routine Exams 10/17/22 06:55 Completed XR chest 1V portable [id number] Stat Exams 10/16/22 14:48 Completed Radiology Impressions Chest X-Ray 10/16/22 14:48 IMPRESSION: No acute findings. Laboratory Results WBC 10.6 10^3/uL (4.0-10.0) H 10/16/22 15:15 RBC 5.13 10^6/uL (4.1-5.3) 10/16/22 15:15 Hgb 14.7 g/dL (11.5-15.3) 10/16/22 15:15 Hct 45.1 % (37.0-47.0) 10/16/22 15:15 MCV 87.9 fl (81-99) 10/16/22 15:15 MCH 28.7 pg (28.0-34.0) 10/16/22 15:15 MCHC 32.6 g/dL (30.0-36.0) 10/16/22 15:15 RDW 13.0 % (12.1-15.1) 10/16/22 15:15 Plt Count 287 10^3/cmm (130-400) 10/16/22 15:15 MPV 9.3 fL (7.4-10.4) 10/16/22 15:15 Neut % (Auto) 66.5 % 10/16/22 15:15 Lymph % (Auto) 26.4 % 10/16/22 15:15 [place] % (Auto) 5.3 % 10/16/22 15:15 Eos % (Auto) 1.1 % 10/16/22 15:15 Baso % (Auto) 0.4 % 10/16/22 15:15 Neut # (Auto) 7.02 10^3/uL (1.8-7.7) 10/16/22 15:15 Lymph # (Auto) 2.8 10^3/uL (0.8-4.8) 10/16/22 15:15 [place] # (Auto) 0.6 10^3/uL (0.2-0.9) 10/16/22 15:15 Eos # (Auto) 0.1 10^3/uL (0.0-0.8) 10/16/22 15:15 Baso # (Auto) 0.0 10^3/uL (0.0-0.1) 10/16/22 15:15 Nucleated RBC % (auto) 0 % 10/16/22 15:15 Nucleated RBCs # 0.0 /100WBC 10/16/22 15:15 ESR 24 mm/hr (0-15) H 10/16/22 15:15 Sodium 137 mmol/L (136-145) 10/16/22 15:15 Potassium 3.6 mmol/L (3.5-5.1) 10/16/22 15:15 Chloride 100 mmol/L (98-107) 10/16/22 15:15 Carbon Dioxide 23 mmol/L (22-29) 10/16/22 15:15 Anion Gap 17.6 (5-19) 10/16/22 15:15 BUN 11 mg/dL (6-20) 10/16/22 15:15 Creatinine 0.3 mg/dL (0.5-0.9) L 10/16/22 15:15 GFR Calculation 254.7 mL/min (90-130) H 10/16/22 15:15 Glucose 207 mg/dL (65-115) H 10/16/22 15:15 POC Glucose 202 mg/dL (70-110) H 10/18/22 05:59 Calculated Osmolality 289 mOsm/kg (285-295) 10/16/22 15:15 Calcium 8.9 mg/dL (8.5-10.5) 10/16/22 15:15 Total Bilirubin 0.3 mg/dL (0.15-1.2) 10/16/22 15:15 AST 12 U/L (0-32) 10/16/22 15:15 ALT 16 U/L (0-33) 10/16/22 15:15 Alkaline Phosphatase 63 U/L (35-105) 10/16/22 15:15 Troponin T Baseline 6 ng/L (0-10) 10/16/22 15:15 Troponin T 120 Minute 6.00 ng/L (0-10) 10/16/22 17:40 Delta Troponin T 0 ABS# (0-10) 10/16/22 17:40 Troponin T Hi Sens 6Hr 6.00 ng/L (0-10) 10/16/22 21:15 Troponin T Hi Sens 6Hr Delta 0 ng/L (0-12) 10/16/22 21:15 C-Reactive Protein 10.6 mg/L (0.0-4.9) H 10/16/22 17:40 NT-Pro-B Natriuret Pep 79 pg/mL (0-125) 10/16/22 15:15 Total Protein 6.7 g/dL (6.6-8.7) 10/16/22 15:15 Albumin 4.0 g/dL (3.5-5.2) 10/16/22 15:15 Globulin 2.7 g/dL (1.3-4.6) 10/16/22 15:15 Triglycerides 217 mg/dL (0-150) H 10/16/22 17:40 Cholesterol 141 mg/dL (0-200) 10/16/22 17:40 LDL Cholesterol, Calc 75 mg/dL (50-129) 10/16/22 17:40 HDL Cholesterol 23 mg/dL (60-100) L 10/16/22 17:40 LDL/HDL Ratio 3.26 RATIO (0.00-3.22) H 10/16/22 17:40 Cholesterol/HDL Ratio 6.13 mg/dL (0.0-4.40) H 10/16/22 17:40 Procalcitonin 0.02 ng/mL (0-0.5) 10/16/22 17:40 TSH 0.94 uIU/mL (0.27-4.20) 10/16/22 17:40 Vitals Last Vital Signs Temp 98.6 F 10/18/22 10:20 Pulse 75 10/18/22 10:20 Resp 26 H 10/18/22 10:20 BP 117/74 10/18/22 10:20 Pulse Ox 95 10/18/22 10:20 O2 Del Method Room Air 10/18/22 10:20 Discharge Plan Discharge Patient Disposition: Xfer Other Condition: Stable Prescriptions: No Action Jardiance 10 mg tablet 10 mg PO QAM Qty: 30 1RF nitroglycerin [Nitrostat] 0.4 mg tablet, sublingual 0.4 mg sublingual Q5M PRN (Reason: chest pain) Qty: 25 1RF Rx Instructions: do not exceed 3 doses per episode atorvastatin 40 mg tablet 40 mg PO DAILY Qty: 90 2RF (DME) Dexcom G6 Transmitter Device See Rx Instructions .ROUTE .MEDSUPPLY Qty: 2 2RF Rx Instructions: change every 90 days (DME) Dexcom G6 Sensor Device See Rx Instructions .ROUTE .MEDSUPPLY Qty: 9 2RF Rx Instructions: change every 10 days (DME) Dexcom G6 Repair Manager Misc See Rx Instructions .ROUTE .MEDSUPPLY Qty: 1 2RF Rx Instructions: Change once every year (DME) blood-glucose meter [OneTouch Ultra2 Meter] Kit See Rx Instructions .Route Qty: 1 0RF Rx Instructions: check sugar 4-6 times a day (DME) OneTouch Ultra Test Strip See Rx Instructions .Route Qty: 400 1RF Rx Instructions: checck sugar 4-6 times (DME) lancets [OneTouch UltraSoft Lancets] Misc See Rx Instructions .Route Qty: 200 1RF Rx Instructions: As directed aspirin 81 mg tablet,delayed release (DR/EC) 81 mg PO DAILY 30 Days Qty: 30 5RF clopidogrel 75 mg tablet 75 mg PO DAILY 30 Days Qty: 30 5RF metoprolol succinate 25 mg tablet extended release 24 hr 25 mg PO DAILY 30 Days Qty: 30 4RF insulin glargine [Lantus Solostar U-100 Insulin] 100 unit/mL (3 mL) insulin pen 10 unit SUBCUT DAILY 60 Days Qty: 15 0RF meloxicam 15 mg tablet 15 mg PO DAILY Novolog FlexPen U-100 Insulin 100 unit/mL (3 mL) insulin pen 10 unit SUBCUT TID MDD 40 Rx Instructions: Inject subcu, 3 times daily, after meals, based on sliding scale provided Discharge Orders: Discharge Order (Routine); Ordered 10/18/22 Ordered By: Delaney Leiva Referrals: Kasey Naqvi DO [Primary Care Provider] - Tiffany Valdez FNP [Nurse Practitioner] - Patient Instructions: Heart Catheterization (DC), Post Angiogram Home Care Instructions Discharge Attestations Time Spent in Discharge Care*: greater than 30 min Quality Metrics Clinical Quality Measures [ No reported AMI, CVA or VTE this stay] Coding Level of Care Code Acute Code for Chg Fwd Diagnoses Abnormal cardiovascular stress test R94.39 Chest pain R07.9 Chest pain type: unspecified CAD (coronary artery disease) I25.10 Coronary Disease-Associated Artery/Lesion type: [place] artery [place] vs. transplanted heart: [place] heart Family history of premature CAD Z82.49 Diabetes type 2, uncontrolled E11.65 Glycemic state: with hyperglycemia Hypertension I10 Bed bug bite W57.XXXA
--- NOTE | 2022-10-18 11:24 | PC.NURSE ---
[facility] ambulance transport is here to transport patient. [facility] notified that pt is on his way to their facility. packet given to ambulance personnel.
== END 2022-10-18 11:25 | disposition short-term general hospital (02) | DRG 287 ==
LOC: ER 17:41 → CSU 19:31
PROVIDERS: Internal Medicine; Admitting Provider Family Medicine; Emergency Provider Emergency Medicine; PCP Family Medicine; Visit Provider Internal Medicine
PROC: 4A023N7 Measurement of Cardiac Sampling and Pressure, Left Heart, Percutaneous Approach (ICD-10-PCS; principal; 2022-10-17 11:30)
DX: I25.119 Atherosclerotic heart disease of native coronary artery with unspecified angina pectoris (principal); Z95.5 Presence of coronary angioplasty implant and graft; Z82.49 Family history of ischemic heart disease and other diseases of the circulatory system; I10 Essential (primary) hypertension; B85.1 Pediculosis due to Pediculus humanus corporis; E11.65 Type 2 diabetes mellitus with hyperglycemia; I25.2 Old myocardial infarction; Z79.84 Long term (current) use of oral hypoglycemic drugs; Z79.82 Long term (current) use of aspirin; Z79.02 Long term (current) use of antithrombotics/antiplatelets; Z79.4 Long term (current) use of insulin; M17.12 Unilateral primary osteoarthritis, left knee; E78.00 Pure hypercholesterolemia, unspecified; F17.200 Nicotine dependence, unspecified, uncomplicated
CPT/HCPCS: 36415; 36416; 71045; 80053; 80061; 82962; 83880; 84145; 84443; 84484; 85025; 85651; 86140; 93005; 93458; 96372; 99152; 99153; 99285; C1769; C1887; C1894; G0378; J1644; J1650; J1815; J2250; J3010; J7030; Q9967

== ENCOUNTER 2022-10-25 00:36 | Emergency (ER) | payer MEDICAID, SELFPAY ==
[2022-10-25 00:37] VITALS: BP 151/71; PULSE 97; RESP 16; TEMP 36.9; O2SAT 94; BMI 25.8
--- NOTE | 2022-10-25 00:40 | ECG_ITS ---
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 Measurements Intervals [place] Rate: 94 P: 29 [place]: 140 QRS: 19 QRSD: 94 T: 45 QT: 363 QTc: 454 Interpretive Statements SINUS RHYTHM POSSIBLE ANTERIOR MYOCARDIAL INFARCTION , OF INDETERMINATE AGE [30 ms Q WAVE IN V3/V4, OR R < 0.2 mV IN V4] Compared to ECG 10/16/2022 22:30:26 Myocardial infarct finding now present Electronically Signed On 10-25-2022 13:59:57 CDT by Kirk Betancourt M.D. [id number]
--- NOTE | 2022-10-25 00:40 | XRR_ITS ---
PROCEDURE INFORMATION: Exam: XR Chest Exam date and time: 10/25/2022 12:56 AM Age: 36 years old Clinical indication: Pain; Chest pressure; Prior surgery; Surgery date: 3-7 days post-operative; Surgery type: Cabg; Additional info: Cp TECHNIQUE: Imaging protocol: Radiologic exam of the chest. Views: 1 view. COMPARISON: CR XR chest 1V portable [id number] 10/16/2022 3:17 PM FINDINGS: Lungs: Bilateral liver lower lobe airspace opacities, left greater than right. Pleural spaces: Left pleural effusion. Heart/Mediastinum: Cardiomegaly. Bones/joints: Previous median sternotomy. XR/XR chest 1V portable [id number] IMPRESSION: Bilateral liver lower lobe airspace opacities, left greater than right. Left pleural effusion. Findings may be seen with pneumonia in the appropriate clinical context.
[2022-10-25 00:41] VITALS: PULSE 102; RESP 19; O2SAT 95
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
[2022-10-25 00:52] LABS: Basophils % 0.4 %; Eosinophils # 0.4 10^3/uL (0.0-0.8); Eosinophils % 3.9 %; Hematocrit 33.1 % (37.0-47.0); Hemoglobin 10.9 g/dL (11.5-15.3); Lymphocytes # 2.3 10^3/uL (0.8-4.8); Lymphocytes % 24.2 %; Mean Corpuscular HGB Conc 32.9 g/dL (30.0-36.0); Mean Corpuscular Hemoglobin 29.1 pg (28.0-34.0); Mean Corpuscular Volume 88.3 fl (81-99); Mean Platelet Volume 8.7 fL (7.4-10.4); Monocytes # 0.9 10^3/uL (0.2-0.9); Monocytes % 9.4 %; Neutrophils # 5.88 10^3/uL (1.8-7.7); Neutrophils % 61.4 %; Nucleated Red Blood Cells % 0 %; Platelet Count 355 10^3/cmm (130-400); Red Blood Count 3.75 10^6/uL (4.1-5.3); Red Cell Distribution Width 12.8 % (12.1-15.1); White Blood Count 9.6 10^3/uL (4.0-10.0)
[2022-10-25 01:11] VITALS: BP 124/78; PULSE 99; RESP 27; O2SAT 95
[2022-10-25 01:11] LABS: Troponin(5th) Baseline 25 ng/L (0-10)
[2022-10-25 01:13] LABS: Alanine Aminotransferase 17 U/L (0-33); Albumin Level 3.5 g/dL (3.5-5.2); Alkaline Phosphatase 42 U/L (35-105); Anion Gap 18.6 (5-19); Aspartate Amino Transferase 16 U/L (0-32); Blood Urea Nitrogen 8 mg/dL (6-20); Carbon Dioxide 22 mmol/L (22-29); Chloride 97 mmol/L (98-107); Globulin 3.3 g/dL (1.3-4.6); Glomerular Filtration Rate 254.7 mL/min (90-130); Glucose 147 mg/dL (65-115); Osmolality Calculated 279 mOsm/kg (285-295); Potassium 3.6 mmol/L (3.5-5.1); Sodium 134 mmol/L (136-145); Total Bilirubin 0.4 mg/dL (0.15-1.2); Total Protein 6.8 g/dL (6.6-8.7)
[2022-10-25 02:00] VITALS: BP 91/72; PULSE 99; RESP 24; O2SAT 94
[2022-10-25] MEDS: LORazepam 2 mg/mL INJ 1 mL 1 MG IVP (02:20)
--- NOTE | 2022-10-25 02:40 | ECG_ITS ---
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 Measurements Intervals [place] Rate: 96 P: 29 DC: 143 QRS: 19 QRSD: 89 T: 48 QT: 352 QTc: 447 Interpretive Statements SINUS RHYTHM POSSIBLE ANTERIOR MYOCARDIAL INFARCTION , OF INDETERMINATE AGE [30 ms Q WAVE IN V3/V4, OR R < 0.2 mV IN V4] Compared to ECG 10/25/2022 00:48:31 No significant changes Electronically Signed On 10-25-2022 14:12:35 CDT by Kirk Betancourt M.D. [email or web address] of smith countyFlowgramohiohealth grove city [facility].[employer]/store/[id number]
[2022-10-25 02:46] LABS: Troponin 5 2HR 20.03 ng/L (0-10)
[2022-10-25 02:51] LABS: Troponin 5 2HR Delta -4.97 ABS# (0-10)
[2022-10-25 03:00] VITALS: BP 116/72; PULSE 94; RESP 25; O2SAT 96
[2022-10-25 03:30] VITALS: BP 116/72; PULSE 100; RESP 16; O2SAT 94
== END 2022-10-25 03:31 | disposition home or self-care (01) ==
PROVIDERS: Emergency Provider Emergency Medicine; PCP Family Medicine
DX: F41.9 Anxiety disorder, unspecified (principal); Z79.82 Long term (current) use of aspirin; Z79.02 Long term (current) use of antithrombotics/antiplatelets; Z79.4 Long term (current) use of insulin; F17.210 Nicotine dependence, cigarettes, uncomplicated; I25.10 Atherosclerotic heart disease of native coronary artery without angina pectoris; E11.9 Type 2 diabetes mellitus without complications; I10 Essential (primary) hypertension; I25.2 Old myocardial infarction
CPT/HCPCS: 71045; 80053; 84484; 85025; 93005; 96374; 99285; J2060

== ENCOUNTER 2022-10-26 23:22 | Emergency (ER) | payer MEDICAID, SELFPAY ==
[2022-10-26 23:22] VITALS: BP 117/61; PULSE 102; RESP 16; TEMP 36.8; O2SAT 94; BMI 32.3
--- NOTE | 2022-10-26 23:28 | ECG_ITS ---
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 Measurements Intervals [place] Rate: 101 P: 39 [place]: 141 QRS: 33 QRSD: 78 T: 51 QT: 350 QTc: 454 Interpretive Statements SINUS TACHYCARDIA NONSPECIFIC ST & T-WAVE ABNORMALITY ABNORMAL RHYTHM ECG Compared to ECG 10/25/2022 02:51:25 T-wave abnormality now present Sinus rhythm no longer present Myocardial infarct finding no longer present Electronically Signed On 10-27-2022 19:19:14 CDT by Pam Subramanian M.D. [id number]
--- NOTE | 2022-10-26 23:46 | XRR_ITS ---
PROCEDURE INFORMATION: Exam: XR Chest Exam date and time: 10/26/2022 11:49 PM Age: 36 years old Clinical indication: Chest pressure; Prior surgery; Surgery date: <1 month; Patient HX: C/O chest pain. Cabg on 10/19/2022. ; Additional info: Cp TECHNIQUE: Imaging protocol: Radiologic exam of the chest. Views: 1 view. COMPARISON: CR (CHEST, ) 10/25/2022 12:56 AM FINDINGS: Lungs: Hypoaerated lungs. Left lower lung opacities are nonspecific. Pleural spaces: Small to moderate size left pleural effusion. Negative for pneumothorax. Heart/Mediastinum: CABG. Cardiomegaly. Bones/joints: Unremarkable. XR/XR chest 1V portable [id number] IMPRESSION: 1. No significant change in the chest. 2. Left pleural effusion.
[2022-10-27 00:19] LABS: Basophils # 0.1 10^3/uL (0.0-0.1); Basophils % 0.5 %; Eosinophils # 0.5 10^3/uL (0.0-0.8); Eosinophils % 3.8 %; Hematocrit 30.9 % (37.0-47.0); Lymphocytes # 2.9 10^3/uL (0.8-4.8); Lymphocytes % 21.8 %; Mean Corpuscular HGB Conc 32.4 g/dL (30.0-36.0); Mean Corpuscular Hemoglobin 28.8 pg (28.0-34.0); Monocytes # 0.9 10^3/uL (0.2-0.9); Monocytes % 6.5 %; Neutrophils # 8.89 10^3/uL (1.8-7.7); Neutrophils % 66.7 %; Nucleated Red Blood Cells % 0 %; Platelet Count 449 10^3/cmm (130-400); Red Blood Count 3.47 10^6/uL (4.1-5.3); Red Cell Distribution Width 13.1 % (12.1-15.1); White Blood Count 13.3 10^3/uL (4.0-10.0)
[2022-10-27 00:22] LABS: INR 1.11 (0.8-1.2)
[2022-10-27 00:23] LABS: Partial Thromboplastin Time 29.3 SECONDS (23.9-36.7)
[2022-10-27] MEDS: ondansetron 2 mg/ML SDV 2 mL 4 MG IVP (00:30)
[2022-10-27] MEDS: morphine 4 mg/mL SDV 1 mL IVP (00:31)
[2022-10-27 00:34] LABS: Troponin(5th) Baseline 14 ng/L (0-10)
[2022-10-27 00:42] LABS: Alanine Aminotransferase 21 U/L (0-33); Albumin Level 3.5 g/dL (3.5-5.2); Alkaline Phosphatase 42 U/L (35-105); Anion Gap 19.1 (5-19); Aspartate Amino Transferase 25 U/L (0-32); Blood Urea Nitrogen 13 mg/dL (6-20); Calcium 8.9 mg/dL (8.5-10.5); Carbon Dioxide 22 mmol/L (22-29); Chloride 98 mmol/L (98-107); Globulin 3.5 g/dL (1.3-4.6); Glomerular Filtration Rate 182.7 mL/min (90-130); Glucose 102 mg/dL (65-115); NT Pro B Type Natriuretic Pept 313 pg/mL (0-125); Osmolality Calculated 280 mOsm/kg (285-295); Potassium 4.1 mmol/L (3.5-5.1); Sodium 135 mmol/L (136-145); Total Bilirubin 0.3 mg/dL (0.15-1.2)
--- NOTE | 2022-10-27 01:11 | CTR_ITS ---
PROCEDURE INFORMATION: Exam: CTA Chest With Contrast Exam date and time: 10/27/2022 1:24 AM Age: 36 years old Clinical indication: Chest pressure; Prior surgery; Surgery date: <1 month; Patient HX: C/O chest pain with cough. Baseline trop of 14. Cabg on 10/19/2022. TECHNIQUE: Imaging protocol: Computed tomographic angiography of the chest with contrast. 3D rendering (Not supervised by radiologist): MIP and/or 3D reconstructed images were created by the technologist. Radiation optimization: All CT scans at this facility use at least one of these dose optimization techniques: automated exposure control; mA and/or kV adjustment per patient size (includes targeted exams where dose is matched to clinical indication); or iterative reconstruction. Contrast material: OMNI 350; Contrast volume: 55 ml; Contrast route: INTRAVENOUS (IV); REPORTING DATA: Count of CT and Cardiac NM exams in prior 12 months: This patient has received 2 known CTs and 0 known cardiac nuclear medicine studies in the 12 months prior to the current study. COMPARISON: CR (CHEST, ) 10/26/2022 11:49 PM RADIATION DOSE METRICS: Total DLP (mGy-cm): 397.73 FINDINGS: Pulmonary arteries: Normal. No pulmonary emboli. Aorta: Unremarkable. No aortic aneurysm. No aortic dissection. Lungs: Moderate right lower lobe pneumonia. Pleural spaces: Mild high density fluid collection in the left pleural space measuring 21 Hounsfield units consistent with hemothorax versus other complex fluid collection. Residual 8% loculated left anterior pneumothorax which is part of a left hydropneumothorax and/or hemopneumothorax. Heart: Unremarkable. No cardiomegaly. No pericardial effusion. Coronary arteries: Stable CABG procedure. Mediastinal space: Soft tissue emphysema and fluid in the retrosternal area and surrounding the heart consistent postoperative air and fluid with or without infection. CABG was performed 8 days ago. Lymph nodes: Unremarkable. No enlarged lymph nodes. Bones/joints: Unremarkable. No acute fracture. Soft tissues: See Pleural spaces finding. CT/CT angio chest PE protcl [id number] IMPRESSION: 1. Moderate right lower lobe pneumonia. 2. Stable CABG procedure. 3. Soft tissue emphysema and fluid in the retrosternal area and surrounding the heart consistent postoperative air and fluid with or without infection. CABG was performed 8 days ago. 4. Mild high density fluid collection in the left pleural space measuring 21 Hounsfield units consistent with hemothorax versus other complex fluid collection. 5. Atelectasis and or pneumonia in the inferior segment lingula and left lower lobe. 6. Residual 8% loculated left anterior pneumothorax which is part of a larger left hydropneumothorax and/or hemopneumothorax.
--- NOTE | 2022-10-27 01:17 | W.ED.CHESTPA ---
HPI - Chest Pain General: Chief Complaint: Chest Pain Stated Complaint: CP Time Seen by Provider: 10/26/22 23:33 History of Present Illness: 36-year-old female who is 7 days status post cardiac bypass grafting surgery. She reports left-sided chest discomfort that started again today. She was seen here in the last 24 hours or so for similar complaints. She has some shortness of breath. She has been coughing up some phlegm, although she notes it is less than prior. No significant drainage from her tube sites. MD complaint: chest pain Pertinent past history: coronary artery disease Onset (ago): hour(s) Timing of current episode: constant Prior episodes: Yes Onset: during rest Pain location: substernal and left chest Pain radiation: none Quality: aching Relieving factors: nothing Associated symptoms: Reports diaphoresis, dyspnea and nausea; Deny abdominal pain, fever(s), leg edema, palpitations or vomiting Review of Systems Const: Reports: diaphoresis; Denies: fever(s) ENMT: Denies: throat pain Card: Reports: chest pain; Denies: palpitations Resp: Reports: dyspnea GI: Reports: nausea; Denies: abdominal pain or vomiting [facility] ED PFSH: Medical History Abnormal cardiovascular stress test Bed bug bite CAD (coronary artery disease) delivery delivered Chest pain Diabetes type 2, uncontrolled Family history of early CAD Family history of premature CAD High cholesterol Hypercholesteremia Hypertension Nicotine dependence, cigarettes, with unspecified nicotine-induced disorders Osteoarthritis of left knee STEMI (ST elevation myocardial infarction) Surgical History H/O tubal ligation History of delivery x 2 Family History Father Diabetes Heart disease Mother Diabetes COPD (chronic obstructive pulmonary disease) Emphysema lung Heart disease Kidney failure Arthritis Social History Smoking and tobacco status: current every day smoker Quit status (tobacco): not considering quitting Second hand smoke exposure: No Smoking risk assessment/counseling performed?: Yes Desire information about alcohol rehabilitation?: No Counseling given: No Substance/Drug Use: never Desire information about substance/drug rehabilitation?: No Counseling given: No Adopted: No Caregiver/support person: No Lives independently: Yes Housing: House Marital status: Number of children: 2 Highest education level completed: 9th Grade service: No Physical Exam Const: GENERAL APPEARANCE: cooperative and anxious; not ill appearing HENMT: COMMON NORMALS: normocephalic and atraumatic HEAD & SCALP: normocephalic and atraumatic FACE & SINUS: normal facial exam and face symmetric Eye: COMMON NORMALS: Equal, round and reactive pupils present and EOMs intact bilaterally PUPIL: Yes Equal, round and reactive pupils present Chest: CHEST: Yes Symmetrical chest wall rise OTHER: Midline sternal incision well approximated with no discharge, or cellulitis. Chest tube sites show no drainage or surrounding cellulitis. Resp: COMMON NORMALS: normal respiratory effort, No use of accessory muscles and clear to auscultation bilaterally AUSCULTATION: clear to auscultation bilaterally Cardio: COMMON NORMALS: regular rhythm RATE: tachycardic RHYTHM: regular rhythm GI: COMMON NORMALS: Normal to inspection, nondistended, normoactive bowel sounds present, Soft to palpation and non-tender PALPATION: Yes Soft to palpation Extremity: COMMON NORMALS: no pedal edema Neuro: LORENZO COMA SCALE: document GCS findings [place] coma scale eye opening: Spontaneous [place] coma scale verbal response: Orientated [place] coma scale motor response: Obey commands Lorenzo coma scale total score: 15 Psych: COMMON NORMALS: mental status grossly normal ATTITUDE: Yes uncooperative Course Vital Signs: Vital signs: Vital Signs Temperature 98.2 F 10/26/22 23:22 Pulse Rate 72 10/27/22 04:33 Respiratory Rate 16 10/27/22 04:33 Blood Pressure 109/60 10/27/22 04:33 Pulse Oximetry 94 10/27/22 04:33 Oxygen Delivery Me thod Room Air 10/27/22 02:37 MDM - Chest Pain Medical Decision Making Patient with recurrent chest discomfort following CABG procedure 8 days ago. Her vitals are stable. Heart rate 89, saturations 95% on room air, blood pressure 109/60, respiratory rate is 20. EKG does not show any acute ST changes. White count is 13.3, with a hemoglobin of 10. Hemoglobin is essentially stable. Chest x-ray compared to the day prior shows no significant change in the chest with a residual left pleural effusion. CTA performed shows a moderate right lower lobe pneumonia postoperatively. There is some soft tissue air and fluid in the retrosternal space consistent with chest surgery. She has a postoperative hemothorax that is residual on the left. On chest x-ray this has not changed significantly from prior. She was counseled on her results. She will be treated with doxycycline for pneumonia. It is now Saturday. She will call her surgeon's office on Saturday and let them know she was seen here and diagnosed with pneumonia. She is encouraged to follow-up sooner than her normal follow-up appointment on 11/06. She knows to return for any worsening symptoms despite treatment. Lab Data 10/26/22 00:09 10/26/22 00:09 Radiology Impressions Chest X-Ray 10/26/22 23:46 IMPRESSION: 1. No significant change in the chest. 2. Left pleural effusion. Chest CTA 10/27/22 01:11 IMPRESSION: 1. Moderate right lower lobe pneumonia. 2. Stable CABG procedure. 3. Soft tissue emphysema and fluid in the retrosternal area and surrounding the heart consistent postoperative air and fluid with or without infection. CABG was performed 8 days ago. 4. Mild high density fluid collection in the left pleural space measuring 21 Hounsfield units consistent with hemothorax versus other complex fluid collection. 5. Atelectasis and or pneumonia in the inferior segment lingula and left lower lobe. 6. Residual 8% loculated left anterior pneumothorax which is part of a larger left hydropneumothorax and/or hemopneumothorax. ADDENDUM: 10/27/22 0402 THIS REPORT CONTAINS FINDINGS THAT MAY BE CRITICAL TO PATIENT CARE. The findings were verbally communicated via telephone conference with SIMBA HUGGINS at 4:00 AM IRIS on 10/27/2022. The findings were acknowledged and understood. Laboratory Results WBC 13.3 10^3/uL (4.0-10.0) H 10/26/22 00:09 RBC 3.47 10^6/uL (4.1-5.3) L 10/26/22 00:09 Hgb 10.0 g/dL (11.5-15.3) L 10/26/22 00:09 Hct 30.9 % (37.0-47.0) L 10/26/22 00:09 MCV 89.0 fl (81-99) 10/26/22 00:09 MCH 28.8 pg (28.0-34.0) 10/26/22 00:09 MCHC 32.4 g/dL (30.0-36.0) 10/26/22 00:09 RDW 13.1 % (12.1-15.1) 10/26/22 00:09 Plt Count 449 10^3/cmm (130-400) H 10/26/22 00:09 MPV 9.0 fL (7.4-10.4) 10/26/22 00:09 Neut % (Auto) 66.7 % 10/26/22 00:09 Lymph % (Auto) 21.8 % 10/26/22 00:09 [place] % (Auto) 6.5 % 10/26/22 00:09 Eos % (Auto) 3.8 % 10/26/22 00:09 Baso % (Auto) 0.5 % 10/26/22 00:09 Neut # (Auto) 8.89 10^3/uL (1.8-7.7) H 10/26/22 00:09 Lymph # (Auto) 2.9 10^3/uL (0.8-4.8) 10/26/22 00:09 [place] # (Auto) 0.9 10^3/uL (0.2-0.9) 10/26/22 00:09 Eos # (Auto) 0.5 10^3/uL (0.0-0.8) 10/26/22 00:09 Baso # (Auto) 0.1 10^3/uL (0.0-0.1) 10/26/22 00:09 Nucleated RBC % (auto) 0 % 10/26/22 00:09 Nucleated RBCs # 0.0 /100WBC 10/26/22 00:09 PT 14.60 SECONDS (12.1-14.9) 10/26/22 00:09 INR 1.11 (0.8-1.2) 10/26/22 00:09 APTT 29.3 SECONDS (23.9-36.7) 10/26/22 00:09 Sodium 135 mmol/L (136-145) L 10/26/22 00:09 Potassium 4.1 mmol/L (3.5-5.1) 10/26/22 00:09 Chloride 98 mmol/L (98-107) 10/26/22 00:09 Carbon Dioxide 22 mmol/L (22-29) 10/26/22 00:09 Anion Gap 19.1 (5-19) H 10/26/22 00:09 BUN 13 mg/dL (6-20) 10/26/22 00:09 Creatinine 0.4 mg/dL (0.5-0.9) L 10/26/22 00:09 GFR Calculation 182.7 mL/min (90-130) H 10/26/22 00:09 Glucose 102 mg/dL (65-115) 10/26/22 00:09 Calculated Osmolality 280 mOsm/kg (285-295) L 10/26/22 00:09 Calcium 8.9 mg/dL (8.5-10.5) 10/26/22 00:09 Total Bilirubin 0.3 mg/dL (0.15-1.2) 10/26/22 00:09 AST 25 U/L (0-32) 10/26/22 00:09 ALT 21 U/L (0-33) 10/26/22 00:09 Alkaline Phosphatase 42 U/L (35-105) 10/26/22 00:09 Troponin T Baseline 14 ng/L (0-10) H 10/26/22 00:09 Troponin T 120 Minute 11.36 ng/L (0-10) H 10/27/22 01:48 Delta Troponin T -2.64 ABS# (0-10) L 10/27/22 01:48 NT-Pro-B Natriuret Pep 313 pg/mL (0-125) H 10/26/22 00:09 Total Protein 7.0 g/dL (6.6-8.7) 10/26/22 00:09 Albumin 3.5 g/dL (3.5-5.2) 10/26/22 00:09 Globulin 3.5 g/dL (1.3-4.6) 10/26/22 00:09 Discharge Plan Discharge Patient Disposition: Home Clinical Impression: Post-op pneumonia Condition: Stable Prescriptions: New doxycycline hyclate 100 mg tablet 100 mg PO BID 10 Days Qty: 20 0RF albuterol sulfate 90 mcg/actuation HFA aerosol inhaler 2 inh INHALATION Q4H PRN (Reason: shortness of breath or wheezing) Qty: 6.7 1RF No Action Jardiance 10 mg tablet 10 mg PO QAM Qty: 30 1RF nitroglycerin [Nitrostat] 0.4 mg tablet, sublingual 0.4 mg sublingual Q5M PRN (Reason: chest pain) Qty: 25 1RF Rx Instructions: do not exceed 3 doses per episode atorvastatin 40 mg tablet 40 mg PO DAILY Qty: 90 2RF (DME) Dexcom G6 Transmitter Device See Rx Instructions .ROUTE .MEDSUPPLY Qty: 2 2RF Rx Instructions: change every 90 days (DME) Dexcom G6 Sensor Device See Rx Instructions .ROUTE .MEDSUPPLY Qty: 9 2RF Rx Instructions: change every 10 days (DME) Dexcom G6 Outdoor Fitness Trainer Misc See Rx Instructions .ROUTE .MEDSUPPLY Qty: 1 2RF Rx Instructions: Change once every year (DME) blood-glucose meter [OneTouch Ultra2 Meter] Kit See Rx Instructions .Route Qty: 1 0RF Rx Instructions: check sugar 4-6 times a day (DME) OneTouch Ultra Test Strip See Rx Instructions .Route Qty: 400 1RF Rx Instructions: checck sugar 4-6 times (DME) lancets [OneTouch UltraSoft Lancets] Misc See Rx Instructions .Route Qty: 200 1RF Rx Instructions: As directed aspirin 81 mg tablet,delayed release (DR/EC) 81 mg PO DAILY 30 Days Qty: 30 5RF clopidogrel 75 mg tablet 75 mg PO DAILY 30 Days Qty: 30 5RF metoprolol succinate 25 mg tablet extended release 24 hr 25 mg PO DAILY 30 Days Qty: 30 4RF insulin glargine [Lantus Solostar U-100 Insulin] 100 unit/mL (3 mL) insulin pen 10 unit SUBCUT DAILY 60 Days Qty: 15 0RF Novolog FlexPen U-100 Insulin 100 unit/mL (3 mL) insulin pen See Rx Instructions .ROUTE .COMPLEX Qty: 15 0RF Dose Instruction: INJECT DIRECTED SUBCUTANEOUSLY 3 TIMES DAILY AFTER MEALS BASED ON SLIDING SCALE, MAX 40 UNITS/DAY Rx Instructions: INJECT DIRECTED SUBCUTANEOUSLY 3 TIMES DAILY AFTER MEALS BASED ON SLIDING SCALE, MAX 40 UNITS/DAY meloxicam 15 mg tablet 15 mg PO DAILY Discharge Orders: Discharge ED (Routine); Ordered 10/27/22 Ordered By: Simba Huggins Referrals: Kasey Naqvi DO [Primary Care Provider] - Patient Instructions: Pneumonia (ED), Opioid Safety, Pain Management Activity Restrictions/Additional Instructions: Return for worsening shortness of breath despite treatment, fever greater than 100 despite 2-3 doses of antibiotics, worsening pain, any other concerning symptoms. Call your doctor on Saturday and let them know you were seen here and diagnosed with pneumonia. they will likely want to see you prior to your scheduled visit. Antibiotics as directed. Use the prescribed inhaler every 4 hours while awake for the first 48 hours, then as needed. Coding Level of Care Code ED [employer] Manager for Marii Alegria
[2022-10-27] MEDS: iohexol 350 mg/mL 500 mL Btl (per mL) IV (01:37)
--- NOTE | 2022-10-27 01:40 | ECG_ITS ---
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 Measurements Intervals [place] Rate: 89 P: 32 ND: 158 QRS: 26 QRSD: 82 T: 31 QT: 372 QTc: 453 Interpretive Statements SINUS RHYTHM POSSIBLE ANTERIOR MYOCARDIAL INFARCTION , OF INDETERMINATE AGE [30 ms Q WAVE IN V3/V4, OR R < 0.2 mV IN V4] Compared to ECG 10/26/2022 23:28:55 Myocardial infarct finding now present Sinus tachycardia no longer present T-wave abnormality no longer present Electronically Signed On 10-27-2022 19:28:05 CDT by Pam Subramanian M.D. [email or web address]
[2022-10-27 02:10] LABS: Troponin 5 2HR 11.36 ng/L (0-10)
[2022-10-27 02:11] LABS: Troponin 5 2HR Delta -2.64 ABS# (0-10)
[2022-10-27 02:37] VITALS: BP 123/64; PULSE 74; RESP 21; O2SAT 94
[2022-10-27] MEDS: doxycycline 100 mg Tablet PO (04:26)
[2022-10-27 04:33] VITALS: BP 109/60; PULSE 72; RESP 16; O2SAT 94
--- NOTE | 2022-10-27 04:33 | PC.NURSE ---
Patient sent home with 2x Oxycodone per MD orders.
== END 2022-10-27 04:31 | disposition home or self-care (01) ==
PROVIDERS: Emergency Provider Emergency Medicine; PCP Family Medicine
DX: J95.89 Other postprocedural complications and disorders of respiratory system, not elsewhere classified (principal); Z79.82 Long term (current) use of aspirin; Z79.02 Long term (current) use of antithrombotics/antiplatelets; Z79.4 Long term (current) use of insulin; F17.210 Nicotine dependence, cigarettes, uncomplicated; I25.10 Atherosclerotic heart disease of native coronary artery without angina pectoris; E11.9 Type 2 diabetes mellitus without complications; I10 Essential (primary) hypertension; I25.2 Old myocardial infarction
CPT/HCPCS: 71045; 71275; 80053; 83880; 84484; 85025; 85610; 85730; 93005; 96374; 96375; 99285; J2270; J2405; Q9967

== ENCOUNTER 2022-10-30 15:57 | Emergency (ER) | payer MEDICAID, SELFPAY ==
[2022-10-30 15:59] VITALS: BP 94/80; PULSE 78; RESP 18; TEMP 36.4; O2SAT 97; BMI 32.3
--- NOTE | 2022-10-30 16:00 | XRR_ITS ---
PROCEDURE INFORMATION: Exam: XR Chest Exam date and time: 10/30/2022 4:29 PM Age: 36 years old Clinical indication: Cough and dyspnea; Additional info: Dyspnea/cough TECHNIQUE: Imaging protocol: Radiologic exam of the chest. Views: 1 view. COMPARISON: CR (CHEST, ) 10/26/2022 11:49 PM FINDINGS: Lungs: Curvilinear opacity noted at the left lung base. Pleural spaces: No apparent residual pleural effusion or pneumothorax. Heart/Mediastinum: Mild cardiomegaly. Bones/joints: Sternotomy wires noted. Visualized osseous structures are intact. XR/XR chest 1V portable [id number] IMPRESSION: Curvilinear opacity at the left base, likely atelectasis.
--- NOTE | 2022-10-30 16:01 | W.ED.SOB ---
HPI - SOB/Dyspnea General: Chief Complaint: Chest Pain Stated Complaint: cp, sob Time Seen by Provider: 10/30/22 15:59 Source: patient History of Present Illness: HPI Narrative: 36-year-old female presents emergency room complaining of shortness of breath and chest pain. Patient was seen a few days ago in the emergency room was found to have a pneumonia. Today she states she had her sudden rapid heart rate had a hard time catching her breath is improved now. She still has some chest discomfort. Patient has a family history of early coronary disease and recently underwent coronary bypass graft. She is diabetic. She had a CTA done at her previous ER visit 3 days ago that was negative. Low-grade subjective fever at home. No vomiting no diarrhea. MD elicited complaint: shortness of breath, cough and chest pain Onset (ago): day(s) Context: recent illness Timing: constant Severity: moderate Exacerbating factors: exertion, coughing and inspiration Relieving factors: rest Known history of: other (Coronary artery disease with recent bypass) Associated symptoms: Deny abdominal pain, chest congestion, chest pain, cough, diaphoresis, dizziness, extremity pain, fever(s), hemoptysis, lightheadedness, myalgias, nausea, orthopnea, palpitations, paresthesias, polydipsia, polyuria, rash, sense of impending doom, syncope or vomiting Treatment prior to arrival: oxygen and bronchodilator Review of Systems Const: Reports: fatigue and malaise; Denies: fever(s), chills or diaphoresis ENMT: Denies: throat pain, ear or mastoid pain, nasal discharge or nasal congestion Card: Denies: chest pain, palpitations, lightheadedness, syncope or orthopnea Resp: Reports: dyspnea, productive cough and wheezing; Denies: hemoptysis or chest congestion GI: Denies: abdominal pain, nausea or vomiting : Denies: flank pain, difficulty voiding, dysuria, urinary frequency or urinary urgency Musc: Denies: extremity pain Skin/Breast: Denies: rash or pruritus Neuro: Denies: dizziness Endo: Denies: polyuria or polydipsia [facility] ED PFSH: Medical History Abnormal cardiovascular stress test Bed bug bite CAD (coronary artery disease) delivery delivered Chest pain Diabetes type 2, uncontrolled Family history of early CAD Family history of premature CAD High cholesterol Hypercholesteremia Hypertension Nicotine dependence, cigarettes, with unspecified nicotine-induced disorders Osteoarthritis of left knee STEMI (ST elevation myocardial infarction) Surgical History H/O tubal ligation History of delivery x 2 Family History Father Diabetes Heart disease Mother Diabetes COPD (chronic obstructive pulmonary disease) Emphysema lung Heart disease Kidney failure Arthritis Social History Smoking and tobacco status: current every day smoker Quit status (tobacco): not considering quitting Second hand smoke exposure: No Smoking risk assessment/counseling performed?: Yes Desire information about alcohol rehabilitation?: No Counseling given: No Substance/Drug Use: never Desire information about substance/drug rehabilitation?: No Counseling given: No Adopted: No Caregiver/support person: No Lives independently: Yes Housing: House Marital status: Number of children: 2 Highest education level completed: 9th Grade service: No Physical Exam Const: GENERAL APPEARANCE: cooperative and comfortable ORIENTATION/CONSCIOUSNESS: Yes awake, Yes oriented to person, Yes oriented to place and Yes oriented to time HENMT: COMMON NORMALS: normocephalic, atraumatic and hearing grossly normal bilaterally HEAD & SCALP: normocephalic and atraumatic Resp: AUSCULTATION: rhonchi and wheezes Cardio: COMMON NORMALS: regular rate, regular rhythm and No murmurs present (Cardio) RATE: regular rate RHYTHM: regular rhythm GI: COMMON NORMALS: Soft to palpation and No hepatosplenomegaly present AUSCULTATION: Yes normoactive bowel sounds PALPATION: Yes Soft to palpation, No Tenderness to palpation present (GI), No Guarding due to palpation present (GI) and Yes No hepatosplenomegaly present Extremity: COMMON NORMALS: normal to inspection, capillary refill normal, no clubbing, cyanosis or edema, no calf tenderness and no pedal edema Neuro: SENSORIUM/ORIENTATION: Yes oriented to person, Yes oriented to place and Yes oriented to time Skin: COMMON NORMALS: no rashes or lesions noted GENERAL SKIN EXAM: no rashes or lesions noted Course Vital Signs: Vital signs: Vital Signs Temperature 97.5 F L 10/30/22 15:59 Pulse Rate 78 10/30/22 15:59 Respiratory Rate 18 10/30/22 15:59 Blood Pressure 94/80 10/30/22 15:59 Pulse Oximetry 97 10/30/22 15:59 Oxygen Delivery Me thod Room Air 10/30/22 15:59 MDM - SOB/Dyspnea Medical Decision Making Work-up was ordered. Patient decided she wanted to leave the emergency room. I talked to her and encouraged her to stay. She is still having atelectasis suspect she has underlying pneumonia that is not responding to the antibiotics she wishes to leave Medical Records I reviewed the patient's medical records. Lab Data I reviewed the patient's lab results. 10/30/22 16:15 10/30/22 16:15 Labs/Radiology: Radiology Impressions Chest X-Ray 10/30/22 16:00 IMPRESSION: Curvilinear opacity at the left base, likely atelectasis. Laboratory Results WBC 11.2 10^3/uL (4.0-10.0) H 10/30/22 16:15 RBC 3.91 10^6/uL (4.1-5.3) L 10/30/22 16:15 Hgb 11.4 g/dL (11.5-15.3) L 10/30/22 16:15 Hct 35.9 % (37.0-47.0) L 10/30/22 16:15 MCV 91.8 fl (81-99) 10/30/22 16:15 MCH 29.2 pg (28.0-34.0) 10/30/22 16:15 MCHC 31.8 g/dL (30.0-36.0) 10/30/22 16:15 RDW 13.4 % (12.1-15.1) 10/30/22 16:15 Plt Count 532 10^3/cmm (130-400) H 10/30/22 16:15 MPV 8.9 fL (7.4-10.4) 10/30/22 16:15 Neut % (Auto) 60.8 % 10/30/22 16:15 Lymph % (Auto) 24.2 % 10/30/22 16:15 [place] % (Auto) 6.5 % 10/30/22 16:15 Eos % (Auto) 6.6 % 10/30/22 16:15 Baso % (Auto) 1.0 % 10/30/22 16:15 Neut # (Auto) 6.84 10^3/uL (1.8-7.7) 10/30/22 16:15 Lymph # (Auto) 2.7 10^3/uL (0.8-4.8) 10/30/22 16:15 [place] # (Auto) 0.7 10^3/uL (0.2-0.9) 10/30/22 16:15 Eos # (Auto) 0.7 10^3/uL (0.0-0.8) 10/30/22 16:15 Baso # (Auto) 0.1 10^3/uL (0.0-0.1) 10/30/22 16:15 Nucleated RBC % (auto) 0 % 10/30/22 16:15 Nucleated RBCs # 0.0 /100WBC 10/30/22 16:15 Sodium Cancelled 10/30/22 16:15 Potassium Cancelled 10/30/22 16:15 Chloride Cancelled 10/30/22 16:15 Carbon Dioxide Cancelled 10/30/22 16:15 Anion Gap Cancelled 10/30/22 16:15 BUN Cancelled 10/30/22 16:15 Creatinine Cancelled 10/30/22 16:15 GFR Calculation Cancelled 10/30/22 16:15 Glucose Cancelled 10/30/22 16:15 Calculated Osmolality Cancelled 10/30/22 16:15 Calcium Cancelled 10/30/22 16:15 Total Bilirubin Cancelled 10/30/22 16:15 AST Cancelled 10/30/22 16:15 ALT Cancelled 10/30/22 16:15 Alkaline Phosphatase Cancelled 10/30/22 16:15 Total Protein Cancelled 10/30/22 16:15 Albumin Cancelled 10/30/22 16:15 Globulin Cancelled 10/30/22 16:15 Discharge Plan Discharge Patient Disposition: Left Against Medical Advice Clinical Impression: Post-op pneumonia, Atypical chest pain, Status post coronary artery bypass graft Condition: Stable Prescriptions: No Action Jardiance 10 mg tablet 10 mg PO QAM Qty: 30 1RF nitroglycerin [Nitrostat] 0.4 mg tablet, sublingual 0.4 mg sublingual Q5M PRN (Reason: chest pain) Qty: 25 1RF Rx Instructions: do not exceed 3 doses per episode atorvastatin 40 mg tablet 40 mg PO DAILY Qty: 90 2RF (DME) Dexcom G6 Transmitter Device See Rx Instructions .ROUTE .MEDSUPPLY Qty: 2 2RF Rx Instructions: change every 90 days (DME) Dexcom G6 Sensor Device See Rx Instructions .ROUTE .MEDSUPPLY Qty: 9 2RF Rx Instructions: change every 10 days (DME) Dexcom G6 Hand Gluer And Slicer Misc See Rx Instructions .ROUTE .MEDSUPPLY Qty: 1 2RF Rx Instructions: Change once every year (DME) blood-glucose meter [OneTouch Ultra2 Meter] Kit See Rx Instructions .Route Qty: 1 0RF Rx Instructions: check sugar 4-6 times a day (DME) OneTouch Ultra Test Strip See Rx Instructions .Route Qty: 400 1RF Rx Instructions: checck sugar 4-6 times (DME) lancets [OneTouch UltraSoft Lancets] Misc See Rx Instructions .Route Qty: 200 1RF Rx Instructions: As directed aspirin 81 mg tablet,delayed release (DR/EC) 81 mg PO DAILY 30 Days Qty: 30 5RF clopidogrel 75 mg tablet 75 mg PO DAILY 30 Days Qty: 30 5RF metoprolol succinate 25 mg tablet extended release 24 hr 25 mg PO DAILY 30 Days Qty: 30 4RF insulin glargine [Lantus Solostar U-100 Insulin] 100 unit/mL (3 mL) insulin pen 10 unit SUBCUT DAILY 60 Days Qty: 15 0RF Novolog FlexPen U-100 Insulin 100 unit/mL (3 mL) insulin pen See Rx Instructions .ROUTE .COMPLEX Qty: 15 0RF Dose Instruction: INJECT DIRECTED SUBCUTANEOUSLY 3 TIMES DAILY AFTER MEALS BASED ON SLIDING SCALE, MAX 40 UNITS/DAY Rx Instructions: INJECT DIRECTED SUBCUTANEOUSLY 3 TIMES DAILY AFTER MEALS BASED ON SLIDING SCALE, MAX 40 UNITS/DAY meloxicam 15 mg tablet 15 mg PO DAILY doxycycline hyclate 100 mg tablet 100 mg PO BID 10 Days Qty: 20 0RF albuterol sulfate 90 mcg/actuation HFA aerosol inhaler 2 inh INHALATION Q4H PRN (Reason: shortness of breath or wheezing) Qty: 6.7 1RF Referrals: Kasey Naqvi DO [Primary Care Provider] - Coding Level of Care Code ED Senior Program Analyst for [employer]
--- NOTE | 2022-10-30 16:19 | ECG_ITS ---
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 Measurements Intervals [place] Rate: 70 P: 22 MS: 150 QRS: 16 QRSD: 83 T: 17 QT: 413 QTc: 446 Interpretive Statements SINUS RHYTHM WITH SINUS ARRHYTHMIA POSSIBLE LEFT ATRIAL ENLARGEMENT [-0.1mV P-WAVE IN V1/V2] POSSIBLE ANTERIOR MYOCARDIAL INFARCTION , PROBABLY OLD [30 ms Q WAVE IN V3/V4, OR R < 0.2 mV IN V4] Compared to ECG 10/27/2022 01:40:55 No significant changes Electronically Signed On 10-30-2022 16:52:07 CDT by Michael Gillette M.D. [id number]
[2022-10-30 16:33] LABS: Basophils # 0.1 10^3/uL (0.0-0.1); Eosinophils # 0.7 10^3/uL (0.0-0.8); Eosinophils % 6.6 %; Hematocrit 35.9 % (37.0-47.0); Hemoglobin 11.4 g/dL (11.5-15.3); Lymphocytes # 2.7 10^3/uL (0.8-4.8); Lymphocytes % 24.2 %; Mean Corpuscular HGB Conc 31.8 g/dL (30.0-36.0); Mean Corpuscular Hemoglobin 29.2 pg (28.0-34.0); Mean Corpuscular Volume 91.8 fl (81-99); Mean Platelet Volume 8.9 fL (7.4-10.4); Monocytes # 0.7 10^3/uL (0.2-0.9); Monocytes % 6.5 %; Neutrophils # 6.84 10^3/uL (1.8-7.7); Neutrophils % 60.8 %; Nucleated Red Blood Cells % 0 %; Platelet Count 532 10^3/cmm (130-400); Red Blood Count 3.91 10^6/uL (4.1-5.3); Red Cell Distribution Width 13.4 % (12.1-15.1); White Blood Count 11.2 10^3/uL (4.0-10.0)
== END 2022-10-30 17:17 | disposition left against medical advice (07) ==
PROVIDERS: Emergency Provider Family Medicine; PCP Family Medicine
DX: J95.89 Other postprocedural complications and disorders of respiratory system, not elsewhere classified (principal); Z95.1 Presence of aortocoronary bypass graft; R07.89 Other chest pain; Z53.21 Procedure and treatment not carried out due to patient leaving prior to being seen by health care provider; Z79.82 Long term (current) use of aspirin; Z79.02 Long term (current) use of antithrombotics/antiplatelets; Z79.4 Long term (current) use of insulin; F17.210 Nicotine dependence, cigarettes, uncomplicated; I25.10 Atherosclerotic heart disease of native coronary artery without angina pectoris; E11.9 Type 2 diabetes mellitus without complications; I10 Essential (primary) hypertension; I25.2 Old myocardial infarction
CPT/HCPCS: 36415; 71045; 85025; 87040; 93005; 99284

== ENCOUNTER 2022-10-30 19:24 | Emergency (ER) | payer MEDICAID, SELFPAY ==
--- NOTE | 2022-10-30 19:35 | XRR_ITS ---
PROCEDURE INFORMATION: Exam: XR Chest Exam date and time: 10/30/2022 8:06 PM Age: 36 years old Clinical indication: Pain; Chest pressure; Prior surgery; Surgery date: <1 month; Surgery type: Cabg; Additional info: Cp TECHNIQUE: Imaging protocol: Radiologic exam of the chest. Views: 1 view. COMPARISON: CR XR chest 1V portable [id number] 10/30/2022 4:29 PM FINDINGS: Lungs: Left lung base airspace opacities unchanged. Pleural spaces: Small left pleural effusion is unchanged. Heart/Mediastinum: Stable heart size. Bones/joints: Stable sternotomy changes in bones. XR/XR chest 1V portable [id number] IMPRESSION: Stable chest. Stable left basilar infiltrate or atelectasis with stable suspected small left pleural effusion.
[2022-10-30 19:57] VITALS: BMI 32.3
--- NOTE | 2022-10-30 20:00 | ECG_ITS ---
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 Measurements Intervals [place] Rate: 71 P: 41 [place]: 137 QRS: 3 QRSD: 91 T: 96 QT: 390 QTc: 425 Interpretive Statements SINUS RHYTHM POSSIBLE LEFT ATRIAL ENLARGEMENT [-0.1mV P-WAVE IN V1/V2] POSSIBLE ANTERIOR MYOCARDIAL INFARCTION , OF INDETERMINATE AGE [30 ms Q WAVE IN V3/V4, OR R < 0.2 mV IN V4] Compared to ECG 10/30/2022 16:19:33 Sinus arrhythmia no longer present Myocardial infarct finding still present Electronically Signed On 10-31-2022 17:50:02 CDT by Michael Gillette M.D. [id number]
[2022-10-30 20:02] VITALS: BP 125/81; PULSE 71; RESP 18; TEMP 36.7; O2SAT 98
[2022-10-30 20:28] LABS: Basophils # 0.1 10^3/uL (0.0-0.1); Basophils % 0.8 %; Eosinophils # 0.8 10^3/uL (0.0-0.8); Eosinophils % 5.8 %; Hematocrit 35.2 % (37.0-47.0); Hemoglobin 11.4 g/dL (11.5-15.3); Lymphocytes # 3.1 10^3/uL (0.8-4.8); Lymphocytes % 23.6 %; Mean Corpuscular HGB Conc 32.4 g/dL (30.0-36.0); Mean Corpuscular Hemoglobin 29.2 pg (28.0-34.0); Mean Platelet Volume 8.8 fL (7.4-10.4); Monocytes # 0.8 10^3/uL (0.2-0.9); Monocytes % 6.1 %; Neutrophils # 8.31 10^3/uL (1.8-7.7); Neutrophils % 62.9 %; Nucleated Red Blood Cells % 0 %; Platelet Count 481 10^3/cmm (130-400); Red Blood Count 3.91 10^6/uL (4.1-5.3); Red Cell Distribution Width 13.4 % (12.1-15.1); White Blood Count 13.2 10^3/uL (4.0-10.0)
[2022-10-30 20:43] LABS: Troponin(5th) Baseline 9 ng/L (0-10)
[2022-10-30 20:44] LABS: Alanine Aminotransferase 19 U/L (0-33); Albumin Level 3.8 g/dL (3.5-5.2); Alkaline Phosphatase 42 U/L (35-105); Blood Urea Nitrogen 14 mg/dL (6-20); Calcium 9.2 mg/dL (8.5-10.5); Carbon Dioxide 20 mmol/L (22-29); Chloride 99 mmol/L (98-107); Globulin 3.5 g/dL (1.3-4.6); Glomerular Filtration Rate 254.7 mL/min (90-130); Glucose 147 mg/dL (65-115); Osmolality Calculated 285 mOsm/kg (285-295); Sodium 136 mmol/L (136-145); Total Bilirubin 0.2 mg/dL (0.15-1.2); Total Protein 7.3 g/dL (6.6-8.7)
[2022-10-30 20:51] LABS: Anion Gap 21.4 (5-19); Potassium 4.4 mmol/L (3.5-5.1)
[2022-10-30 20:52] LABS: Aspartate Amino Transferase 16 U/L (0-32)
--- NOTE | 2022-10-30 21:37 | ECG_ITS ---
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 Measurements Intervals [place] Rate: 68 P: 32 DC: 159 QRS: 33 QRSD: 90 T: 53 QT: 411 QTc: 440 Interpretive Statements SINUS RHYTHM POSSIBLE LEFT ATRIAL ENLARGEMENT [-0.1mV P-WAVE IN V1/V2] Compared to ECG 10/30/2022 20:00:28 Myocardial infarct finding no longer present Electronically Signed On 10-31-2022 18:01:07 CDT by Michael Gillette M.D. [email or web address]/store/[id number]
--- NOTE | 2022-10-30 21:46 | W.ED.SOB ---
HPI - SOB/Dyspnea General: Chief Complaint: Shortness of Breath/Dyspnea Stated Complaint: SOB Time Seen by Provider: 10/30/22 21:25 History of Present Illness: HPI Narrative: Patient presents to the ER today for the second time with complaints of shortness of breath heart racing and anxiety. Patient left here earlier due to family issues and left AGAINST MEDICAL ADVICE. Patient was diagnosed with pneumonia Few days ago. Put on antibiotics. Patient had a CABG procedure done in [place] by Dr. Solomon on 10/19/2022 patient is having sweats cold chills shortness of breath with a cough. This is all making her anxiety a lot worse. MD elicited complaint: shortness of breath, cough and anxiety Pertinent past history: other (Recent diagnosis of pneumonia and recent CABG procedure) Context: recent illness Timing: constant Severity: mild Exacerbating factors: exertion and coughing Relieving factors: nothing Known history of: other (Pneumonia) Associated symptoms: Reports cough, palpitations and other (Anxiety); Deny abdominal pain, extremity pain, fever(s), nausea, polydipsia, polyuria or vomiting Treatment prior to arrival: none Review of Systems General: Reports: 10 or more systems reviewed and unremarkable except in HPI and below Const: Reports: chills; Denies: fever(s) Eyes: Denies: change in vision or photophobia ENMT: Denies: throat pain or odynophagia Card: Reports: palpitations Resp: Reports: dyspnea and non-productive cough GI: Denies: abdominal pain, nausea or vomiting : Denies: flank pain, difficulty voiding or dysuria Musc: Denies: neck pain, back pain or extremity pain Skin/Breast: Denies: rash or pruritus Neuro: Denies: headache(s) or numbness in extremities Psych: Reports: anxiety Endo: Denies: polyuria, polydipsia or tired all the time PFSH ED PFSH: Medical History Abnormal cardiovascular stress test Bed bug bite CAD (coronary artery disease) delivery delivered Chest pain Diabetes type 2, uncontrolled Family history of early CAD Family history of premature CAD High cholesterol Hypercholesteremia Hypertension Nicotine dependence, cigarettes, with unspecified nicotine-induced disorders Osteoarthritis of left knee STEMI (ST elevation myocardial infarction) Surgical History H/O tubal ligation History of delivery x 2 Family History Father Diabetes Heart disease Mother Diabetes COPD (chronic obstructive pulmonary disease) Emphysema lung Heart disease Kidney failure Arthritis Social History Smoking and tobacco status: current every day smoker Quit status (tobacco): not considering quitting Second hand smoke exposure: No Smoking risk assessment/counseling performed?: Yes Desire information about alcohol rehabilitation?: No Counseling given: No Substance/Drug Use: never Desire information about substance/drug rehabilitation?: No Counseling given: No Adopted: No Caregiver/support person: No Lives independently: Yes Housing: House Marital status: Number of children: 2 Highest education level completed: 9th Grade service: No Female Reproductive History: Date of last menstrual period: 09/30/22 Physical Exam Const: COMMON NORMALS: no acute distress, average body habitus, patient oriented x3, no limitations, healthy appearing, alert and well nourished HENMT: COMMON NORMALS: normocephalic, atraumatic, hearing grossly normal bilaterally, external ears normal and moist oral mucous membranes HEAD & SCALP: normocephalic and atraumatic EXTERNAL EAR: Yes external ears normal Eye: COMMON NORMALS: Equal, round and reactive pupils present, EOMs intact bilaterally, conjunctivae normal and no scleral icterus CONJUNCTIVA: Yes conjunctivae normal PUPIL: Yes Equal, round and reactive pupils present Neck/C-Spine: COMMON NORMALS: no JVD Lymph: LYMPHATIC: no lymphadenopathy noted Chest: COMMONS NORMALS: normal inspection of the chest and normal palpation of entire chest wall Resp: COMMON NORMALS: normal respiratory effort, No retractions, No use of accessory muscles and clear to auscultation bilaterally AUSCULTATION: clear to auscultation bilaterally Cardio: COMMON NORMALS: no JVD, regular rate, regular rhythm, S1 normal heart sound present, S2 normal heart sound present, No gallops present (Cardio) and No clicks present (Cardio) RATE: regular rate RHYTHM: regular rhythm HEART SOUNDS: S1 normal heart sound present and S2 normal heart sound present GI: COMMON NORMALS: Normal to inspection, nondistended, normoactive bowel sounds present, Soft to palpation, non-tender, No hepatosplenomegaly present and no masses PALPATION: Yes Soft to palpation and Yes No hepatosplenomegaly present : COMMON NORMALS: Yes no CVA tenderness BLADDER/KIDNEY EXAM: Yes no CVA tenderness Back/Pelvis: COMMON NORMALS: no CVA tenderness Neuro: COMMON NORMALS: patient oriented x3 SENSORIUM/ORIENTATION: Yes alert Course Vital Signs: Vital signs: Vital Signs Temperature 98.0 F 10/30/22 20:02 Pulse Rate 71 10/30/22 20:02 Respiratory Rate 18 10/30/22 20:02 Blood Pressure 125/81 10/30/22 20:02 Pulse Oximetry 98 10/30/22 20:02 Oxygen Delivery Me thod Room Air 10/30/22 20:02 MDM - SOB/Dyspnea Medical Decision Making Patient presents to the ER today with a second time with complaints of heart racing shortness of breath. Patient was recently diagnosed with pneumonia and put on doxycycline. Patient admits to having a lot of anxiety since her she had open heart surgery on 10/19/2022. Lab work was obtained which was stable chest x-ray was obtained which showed stable left basilar infiltrate. Patient was given 1 mg of Ativan IM for her anxiety which calm down and allowed her to sleep comfortably. Findings was discussed with patient and family and patient says she is ready to go home. Patient will be discharged home to follow-up with her primary care physician for further treatment for her anxiety. Patient is to continue with the doxycycline for her pneumonia. Differential Diagnosis Likely community acquired pneumonia; Unlikely acute exacerbation of chronic obstructive airways disease, congestive heart failure, asthma with exacerbation or pulmonary embolism Medical Records I reviewed the patient's medical records. Lab Data I reviewed the patient's lab results. 10/30/22 20:12 10/30/22 20:12 Labs/Radiology: Radiology Impressions Chest X-Ray 10/30/22 19:35 IMPRESSION: Stable chest. Stable left basilar infiltrate or atelectasis with stable suspected small left pleural effusion. Laboratory Results WBC 13.2 10^3/uL (4.0-10.0) H 10/30/22 20:12 RBC 3.91 10^6/uL (4.1-5.3) L 10/30/22 20:12 Hgb 11.4 g/dL (11.5-15.3) L 10/30/22 20:12 Hct 35.2 % (37.0-47.0) L 10/30/22 20:12 MCV 90.0 fl (81-99) 10/30/22 20:12 MCH 29.2 pg (28.0-34.0) 10/30/22 20:12 MCHC 32.4 g/dL (30.0-36.0) 10/30/22 20:12 RDW 13.4 % (12.1-15.1) 10/30/22 20:12 Plt Count 481 10^3/cmm (130-400) H 10/30/22 20:12 MPV 8.8 fL (7.4-10.4) 10/30/22 20:12 Neut % (Auto) 62.9 % 10/30/22 20:12 Lymph % (Auto) 23.6 % 10/30/22 20:12 [place] % (Auto) 6.1 % 10/30/22 20:12 Eos % (Auto) 5.8 % 10/30/22 20:12 Baso % (Auto) 0.8 % 10/30/22 20:12 Neut # (Auto) 8.31 10^3/uL (1.8-7.7) H 10/30/22 20:12 Lymph # (Auto) 3.1 10^3/uL (0.8-4.8) 10/30/22 20:12 [place] # (Auto) 0.8 10^3/uL (0.2-0.9) 10/30/22 20:12 Eos # (Auto) 0.8 10^3/uL (0.0-0.8) 10/30/22 20:12 Baso # (Auto) 0.1 10^3/uL (0.0-0.1) 10/30/22 20:12 Nucleated RBC % (auto) 0 % 10/30/22 20:12 Nucleated RBCs # 0.0 /100WBC 10/30/22 20:12 Sodium 136 mmol/L (136-145) 10/30/22 20:12 Potassium 4.4 mmol/L (3.5-5.1) 10/30/22 20:12 Chloride 99 mmol/L (98-107) 10/30/22 20:12 Carbon Dioxide 20 mmol/L (22-29) L 10/30/22 20:12 Anion Gap 21.4 (5-19) H 10/30/22 20:12 BUN 14 mg/dL (6-20) 10/30/22 20:12 Creatinine 0.3 mg/dL (0.5-0.9) L 10/30/22 20:12 GFR Calculation 254.7 mL/min (90-130) H 10/30/22 20:12 Glucose 147 mg/dL (65-115) H 10/30/22 20:12 Calculated Osmolality 285 mOsm/kg (285-295) 10/30/22 20:12 Calcium 9.2 mg/dL (8.5-10.5) 10/30/22 20:12 Total Bilirubin 0.2 mg/dL (0.15-1.2) 10/30/22 20:12 AST 16 U/L (0-32) 10/30/22 20:12 ALT 19 U/L (0-33) 10/30/22 20:12 Alkaline Phosphatase 42 U/L (35-105) 10/30/22 20:12 Troponin T Baseline 9 ng/L (0-10) 10/30/22 20:12 Troponin T 120 Minute 9.06 ng/L (0-10) 10/30/22 22:15 Total Protein 7.3 g/dL (6.6-8.7) 10/30/22 20:12 Albumin 3.8 g/dL (3.5-5.2) 10/30/22 20:12 Globulin 3.5 g/dL (1.3-4.6) 10/30/22 20:12 EKG Data EKG 1: I personally reviewed and interpreted this EKG as follows: EKG Interpretation Date: 10/30/22 EKG interpretation time: 21:37 Interpretation: EKG shows a ventricular rate of 68 bpm and normal sinus rhythm, NV interval 159, QRS duration of 90, QTc of 429, no ST-T wave changes Discharge Plan Discharge Patient Disposition: Home Clinical Impression: Anxiety Community acquired pneumonia Qualifiers: Laterality: unspecified laterality Qualified Code(s): J18.9 - Pneumonia, unspecified organism Condition: Stable Prescriptions: No Action Jardiance 10 mg tablet 10 mg PO QAM Qty: 30 1RF nitroglycerin [Nitrostat] 0.4 mg tablet, sublingual 0.4 mg sublingual Q5M PRN (Reason: chest pain) Qty: 25 1RF Rx Instructions: do not exceed 3 doses per episode atorvastatin 40 mg tablet 40 mg PO DAILY Qty: 90 2RF (DME) Dexcom G6 Transmitter Device See Rx Instructions .ROUTE .MEDSUPPLY Qty: 2 2RF Rx Instructions: change every 90 days (DME) Dexcom G6 Sensor Device See Rx Instructions .ROUTE .MEDSUPPLY Qty: 9 2RF Rx Instructions: change every 10 days (DME) Dexcom G6 Patient Companion Misc See Rx Instructions .ROUTE .MEDSUPPLY Qty: 1 2RF Rx Instructions: Change once every year (DME) blood-glucose meter [OneTouch Ultra2 Meter] Kit See Rx Instructions .Route Qty: 1 0RF Rx Instructions: check sugar 4-6 times a day (DME) OneTouch Ultra Test Strip See Rx Instructions .Route Qty: 400 1RF Rx Instructions: checck sugar 4-6 times (DME) lancets [OneTouch UltraSoft Lancets] Misc See Rx Instructions .Route Qty: 200 1RF Rx Instructions: As directed aspirin 81 mg tablet,delayed release (DR/EC) 81 mg PO DAILY 30 Days Qty: 30 5RF clopidogrel 75 mg tablet 75 mg PO DAILY 30 Days Qty: 30 5RF metoprolol succinate 25 mg tablet extended release 24 hr 25 mg PO DAILY 30 Days Qty: 30 4RF insulin glargine [Lantus Solostar U-100 Insulin] 100 unit/mL (3 mL) insulin pen 10 unit SUBCUT DAILY 60 Days Qty: 15 0RF Novolog FlexPen U-100 Insulin 100 unit/mL (3 mL) insulin pen See Rx Instructions .ROUTE .COMPLEX Qty: 15 0RF Dose Instruction: INJECT DIRECTED SUBCUTANEOUSLY 3 TIMES DAILY AFTER MEALS BASED ON SLIDING SCALE, MAX 40 UNITS/DAY Rx Instructions: INJECT DIRECTED SUBCUTANEOUSLY 3 TIMES DAILY AFTER MEALS BASED ON SLIDING SCALE, MAX 40 UNITS/DAY meloxicam 15 mg tablet 15 mg PO DAILY doxycycline hyclate 100 mg tablet 100 mg PO BID 10 Days Qty: 20 0RF albuterol sulfate 90 mcg/actuation HFA aerosol inhaler 2 inh INHALATION Q4H PRN (Reason: shortness of breath or wheezing) Qty: 6.7 1RF Discharge Orders: Discharge ED (Routine); Ordered 10/30/22 Ordered By: Leander Rodríguez Referrals: Kasey Naqvi DO [Primary Care Provider] - 1 week Patient Instructions: Anxiety (ED), Pneumonia (ED) Activity Restrictions/Additional Instructions: Please finish your antibiotics as previously prescribed for pneumonia. Please follow-up with your primary care practitioner in the next 1 to 2 weeks for treatment for your anxiety. Coding Level of Care Code ED Publications Distribution Clerk for Marii Alegria
[2022-10-30] MEDS: LORazepam 2 mg/mL INJ 1 mL 1 MG IVP (22:08)
[2022-10-30 22:30] VITALS: BP 133/74; PULSE 74; RESP 16; O2SAT 98
[2022-10-30 22:40] LABS: Troponin 5 2HR 9.06 ng/L (0-10)
[2022-10-30 22:45] VITALS: BP 134/93; PULSE 76; RESP 17; O2SAT 96
[2022-10-30 22:51] LABS: Troponin 5 2HR Delta 0.06 ABS# (0-10)
[2022-10-30 23:00] VITALS: BP 136/91; PULSE 80; RESP 16; O2SAT 96
== END 2022-10-30 23:16 | disposition home or self-care (01) ==
PROVIDERS: Emergency Medicine; Emergency Provider Emergency Medicine; PCP Family Medicine
DX: J18.9 Pneumonia, unspecified organism (principal); F41.9 Anxiety disorder, unspecified; Z79.82 Long term (current) use of aspirin; Z79.02 Long term (current) use of antithrombotics/antiplatelets; Z79.4 Long term (current) use of insulin; I25.10 Atherosclerotic heart disease of native coronary artery without angina pectoris; E11.9 Type 2 diabetes mellitus without complications; I10 Essential (primary) hypertension; I25.2 Old myocardial infarction; F17.210 Nicotine dependence, cigarettes, uncomplicated
CPT/HCPCS: 36415; 71045; 80053; 84484; 85025; 93005; 96374; 99285; J2060

== ENCOUNTER → 2022-11-01 13:59 | Outpatient (BNVA) | payer MEDICAID, SELFPAY | PROVIDERS: PCP Family Medicine; Visit Provider Nurse Practitioner Family | DX: I25.10 Atherosclerotic heart disease of native coronary artery without angina pectoris (principal); Z95.1 Presence of aortocoronary bypass graft; F17.200 Nicotine dependence, unspecified, uncomplicated; I10 Essential (primary) hypertension | CPT/HCPCS: 99213 ==

== ENCOUNTER → 2022-11-13 13:11 | Outpatient (BNVA) | payer MEDICAID, SELFPAY | PROVIDERS: PCP Family Medicine; Visit Provider Internal Medicine | DX: E11.65 Type 2 diabetes mellitus with hyperglycemia (principal); Z82.49 Family history of ischemic heart disease and other diseases of the circulatory system; E78.00 Pure hypercholesterolemia, unspecified; I25.10 Atherosclerotic heart disease of native coronary artery without angina pectoris; Z79.84 Long term (current) use of oral hypoglycemic drugs; Z79.4 Long term (current) use of insulin | CPT/HCPCS: 99214 ==

== ENCOUNTER 2022-11-13 22:00 | Emergency (ER) | payer MEDICAID, SELFPAY ==
[2022-11-13 22:02] VITALS: BMI 17.7
[2022-11-13 22:05] VITALS: BP 122/89; PULSE 94; RESP 16; TEMP 37.1; O2SAT 98
--- NOTE | 2022-11-13 22:05 | ED_ITS ---
HPI - Chest Pain General: Chief Complaint: Chest Pain Stated Complaint: CP Time Seen by Provider: 11/13/22 22:05 History of Present Illness: Ms. Moralez is a 36-year-old lady with significant past medical history of insulin-dependent diabetes and recent CABG reportedly x3 presenting to the emergency department for chest pain. She reports being in her baseline health the past few days. She had midsternal chest pain associated with shortness of breath during an argument with her boyfriend. Currently only minimal residual symptoms. No other specific changes in health, exacerbating, or alleviating factors identified. Onset (ago): hour(s) Prior episodes: Yes Onset: other Pain location: substernal Exacerbating factors: stress Review of Systems General: Reports: 10 or more systems reviewed and unremarkable except in HPI and below PFSH ED PFSH: Medical History Abnormal cardiovascular stress test Bed bug bite CAD (coronary artery disease) delivery delivered Chest pain Diabetes type 2, uncontrolled Family history of early CAD Family history of premature CAD High cholesterol Hypercholesteremia Hypertension Nicotine dependence, cigarettes, with unspecified nicotine-induced disorders Osteoarthritis of left knee STEMI (ST elevation myocardial infarction) Surgical History H/O tubal ligation History of delivery x 2 Family History Father Diabetes Heart disease Mother Diabetes COPD (chronic obstructive pulmonary disease) Emphysema lung Heart disease Kidney failure Arthritis Social History Smoking and tobacco status: current every day smoker Quit status (tobacco): not considering quitting Second hand smoke exposure: No Smoking risk assessment/counseling performed?: Yes Desire information about alcohol rehabilitation?: No Counseling given: No Substance/Drug Use: never Desire information about substance/drug rehabilitation?: No Counseling given: No Adopted: No Caregiver/support person: No Lives independently: Yes Housing: House Marital status: Number of children: 2 Highest education level completed: 9th Grade service: No Female Reproductive History: Date of last menstrual period: 10/22/22 Physical Exam Const: COMMON NORMALS: alert GENERAL APPEARANCE: cooperative and well developed HENMT: COMMON NORMALS: normocephalic and atraumatic HEAD & SCALP: nor mocephalic and atraumatic Eye: COMMON NORMALS: conjunctivae normal CONJUNCTIVA: Yes conjunctivae normal SCLERA: sclerae normal Neck/C-Spine: COMMON NORMALS: supple GENERAL: Yes trachea midline Chest: OTHER: No evidence of postoperative infection. Resp: COMMON NORMALS: normal respiratory effort EFFORT & INSPECTION: Yes able to speak in complete sentences Cardio: COMMON NORMALS: regular rate and regular rhythm RATE: regular rate RHYTHM: regular rhythm GI: COMMON NORMALS: Soft to palpation PALPATION: Yes Soft to palpation and No Tenderness to palpation present (GI) Extremity: GENERAL: Yes normal exam except as noted and No edema Neuro: COMMON NORMALS: moves all extremities SENSORIUM/ORIENTATION: Yes alert and No Orientation impaired Psych: COMMON NORMALS: mental status grossly normal and Normal thought process present THOUGHT PROCESS: Normal thought process present Course Vital Signs: Vital signs: Vital Signs Temperature 98.8 F 11/13/22 22:05 Pulse Rate 94 11/14/22 01:42 Respiratory Rate 16 11/14/22 01:42 Blood Pressure 129/76 11/14/22 01:42 Pulse Oximetry 97 11/14/22 01:42 Oxygen Delivery Me thod Room Air 11/13/22 22:05 MDM - Chest Pain Medical Decision Making 37-year-old lady with atypical history including recent CABG presenting due to chest pain associated with emotional stress. Exam as above. EKG demonstrates sinus rhythm with normal axis and intervals, no STEMI. Labs with no significant hematologic or metabolic abnormality to explain symptoms. Negative range 2-hour delta troponin. BNP is not significantly elevated. Chest x-ray with perhaps small effusions, no lobar consolidation or pneumothorax. I do not believe that symptoms related to infected effusions as clinical history is not consistent with this. Patient received aspirin. On reassessment symptoms improved. The results of ED evaluation were discussed with the patient including prescriptions and/or symptomatic cares (if applicable) including appropriate and responsible use, followup plan, and return precautions. The patient verbalized understanding and felt safe for discharge. Medical Records I reviewed the patient's medical records. Lab Data I reviewed the patient's lab results. 11/13/22 22:23 11/13/22 22:23 Radiology Impressions Chest X-Ray 11/13/22 22:05 IMPRESSION: 1. There are bibasilar opacities, perhaps slightly increased on the right and slightly decreased on the left. Small layering left pleural effusions slightly decreased compared to the prior. Trace right pleural effusion can not be excluded. 2. No other significant change since prior. Laboratory Results WBC 9.9 10^3/uL (4.0-10.0) 11/13/22 22: RBC 4.24 10^6/uL (4.1-5.3) 11/13/22: Hgb 12.1 g/dL (11.5-15.3) 11/13/22 22: Hct 38.7 % (37.0-47.0) 11/13/22: MCV 91.3 fl (81-99) 11/13/22: MCH 28.5 pg (28.0-34.0) 11/13/22: MCHC 31.3 g/dL (30.0-36.0) 11/13/22: RDW 13.3 % (12.1-15.1) 11/13/22: Plt Count 329 10^3/cmm (130-400) 11/13/22: MPV 9.0 fL (7.4-10.4) 11/13/22: Neut % (Auto) 53.6 % 11/13/22: Lymph % (Auto) 32.8 % 11/13/22: [place] % (Auto) 8.0 % 11/13/22: Eos % (Auto) 4.7 % 11/13/22: Baso % (Auto) 0.6 % 11/13/22: Neut # (Auto) 5.28 10^3/uL (1.8-7.7) 11/13/22: Lymph # (Auto) 3.2 10^3/uL (0.8-4.8) 11/13/22: [place] # (Auto) 0.8 10^3/uL (0.2-0.9) 11/13/22: Eos # (Auto) 0.5 10^3/uL (0.0-0.8) 11/13/22: Baso # (Auto) 0.1 10^3/uL (0.0-0.1) 11/13/22 22:23 Nucleated RBC % (auto) 0 % 11/13/22 22: Nucleated RBCs # 0.0 /100WBC 11/13/22 22:23 Sodium 137 mmol/L (136-145) 11/13/22 22:23 Potassium 4.0 mmol/L (3.5-5.1) 11/13/22 22:23 Chloride 101 mmol/L (98-107) 11/13/22 22:23 Carbon Dioxide 24 mmol/L (22-29) 11/13/22 22: Anion Gap 16.0 (5-19) 11/13/22 22: BUN 16 mg/dL (6-20) 11/13/22 22: Creatinine 0.4 mg/dL (0.5-0.9) L 11/13/22 22: GFR Calculation 182.7 mL/min (90-130) H 11/13/22 22: Glucose 214 mg/dL (65-115) H 11/13/22 22: Calculated Osmolality 292 mOsm/kg (285-295) 11/13/22 22: Calcium 9.6 mg/dL (8.5-10.5) 11/13/22 22: Total Bilirubin 0.2 mg/dL (0.15-1.2) 11/13/22 22: AST 13 U/L (0-32) 11/13/22 22: ALT 15 U/L (0-33) 11/13/22 22: Alkaline Phosphatase 59 U/L (35-105) 11/13/22 22: Troponin T Baseline 9 ng/L (0-10) 11/13/22 22: Troponin T 120 Minute 11.69 ng/L (0-10) H 11/14/22 00:52 Delta Troponin T 2.69 ABS# (0-10) 11/14/22 00:52 NT-Pro-B Natriuret Pep 183 pg/mL (0-125) H 11/13/22 22:23 Total Protein 6.7 g/dL (6.6-8.7) 11/13/22 22:23 Albumin 4.1 g/dL (3.5-5.2) 11/13/22 22:23 Globulin 2.6 g/dL (1.3-4.6) 11/13/22 22:23 Lipase 24 U/L (13-60) 11/13/22 22:23 Discharge Plan Discharge Patient Disposition: Home Clinical Impression: Chest pain, Hyperglycemia Condition: Stable Prescriptions: No Action Jardiance 10 mg tablet 10 mg PO QAM Qty: 30 1RF nitroglycerin [Nitrostat] 0.4 mg tablet, sublingual 0.4 mg sublingual Q5M PRN (Reason: chest pain) Qty: 25 1RF Rx Instructions: do not exceed 3 doses per episode (DME) Dexcom G7 Sensor Device See Rx Instructions .ROUTE .MEDSUPPLY Qty: 6 0RF Rx Instructions: Change every 10days (DME) Dexcom G7 Lace Tearing Supervisor Misc See Rx Instructions .Route Qty: 1 0RF Rx Instructions: As directed Mounjaro 2.5 mg/0.5 mL pen injector 2.5 mg SUBCUT Q7D 30 Days Qty: 2.5 0RF Rx Instructions: 2.5mg weekly for 1month; 5mg weekly for 1month; 7.5mg weekly and continue Mounjaro 5 mg/0.5 mL pen injector 5 mg SUBCUT Q7D 30 Days Qty: 2.5 0RF Rx Instructions: 5mg weekly for 1 month then 7.5mg weekly and continue Mounjaro 7.5 mg/0.5 mL pen injector 7.5 mg SUBCUT Q7D 30 Days Qty: 2.5 0RF aspirin 81 mg tablet,delayed release (DR/EC) 325 mg PO DAILY hydrocodone-acetaminophen 5-325 mg tablet 1 tab PO Q6H buspirone 10 mg tablet 10 mg PO TID Qty: 84 1RF (DME) blood-glucose meter [OneTouch Ultra2 Meter] Kit See Rx Instructions .Route Qty: 1 0RF Rx Instructions: check sugar 4-6 times a day (DME) OneTouch Ultra Test Strip See Rx Instructions .Route Qty: 400 1RF Rx Instructions: checck sugar 4-6 times (DME) lancets [OneTouch UltraSoft Lancets] Misc See Rx Instructions .Route Qty: 200 1RF Rx Instructions: As directed clopidogrel 75 mg tablet 75 mg PO DAILY 30 Days Qty: 30 5RF insulin glargine [Lantus Solostar U-100 Insulin] 100 unit/mL (3 mL) insulin pen 10 unit SUBCUT DAILY 60 Days Qty: 15 0RF Novolog FlexPen U-100 Insulin 100 unit/mL (3 mL) insulin pen See Rx Instructions .ROUTE .COMPLEX Qty: 15 0RF Dose Instruction: INJECT DIRECTED SUBCUTANEOUSLY 3 TIMES DAILY AFTER MEALS BASED ON SLIDING SCALE, MAX 40 UNITS/DAY Rx Instructions: INJECT DIRECTED SUBCUTANEOUSLY 3 TIMES DAILY AFTER MEALS BASED ON SLIDING SCALE, MAX 40 UNITS/DAY (DME) pen needle, diabetic [BD Ultra-Fine Short Pen Needle] 31 gauge x 5/16 needle See Rx Instructions .ROUTE .MEDSUPPLY Qty: 100 0RF Rx Instructions: As directed carvedilol 6.25 mg tablet 6.25 mg PO BID Qty: 180 0RF atorvastatin 40 mg tablet 80 mg PO DAILY Qty: 180 0RF spironolactone 25 mg tablet 25 mg PO DAILY Qty: 90 0RF albuterol sulfate 90 mcg/actuation HFA aerosol inhaler 2 inh INHALATION Q4H PRN (Reason: shortness of breath or wheezing) Qty: 6.7 1RF Discharge Orders: Discharge ED (Routine); Ordered 11/14/22 Ordered By: Hira Martinez Referrals: Kasey Naqvi DO [Primary Care Provider] - Discharge Diet: As Directed Discharge Activity: Limit activity as instructed Patient Instructions: Chest Pain (ED), CABG (Coronary Artery Bypass Graft) (DC) Activity Restrictions/Additional Instructions: Thank you for visiting the emergency department. You were seen evaluated for chest pain in the context of recent surgery. The exact cause of your symptoms is unclear however does not appear to need hospitalization at this time. I recommend follow-up with your sap fico architect and cardiothoracic surgeon. Please follow all previously given instructions. I recommend avoiding conflict or other situations that may precipitate your chest pain. Return to the emergency department for anything that you are concerned about and feel needs emergency department evaluation. Coding Level of Care Code ED Jewelry Facer for Marii Alegria
--- NOTE | 2022-11-13 22:05 | XRR_ITS ---
PROCEDURE INFORMATION: Exam: XR Chest Exam date and time: 11/13/2022 10:12 PM Age: 36 years old Clinical indication: Pain; Chest pressure; Prior surgery; Surgery date: 1-6 months; Surgery type: Cabg; Additional info: Cp TECHNIQUE: Imaging protocol: Radiologic exam of the chest. Views: 1 view. COMPARISON: CR (CHEST, ) 10/30/2022 8:06 PM FINDINGS: Lungs: Redemonstration of bibasilar opacities which appears slightly increased on the right and slightly decreased on the left. There is mild increased peribronchial cuffing. Pleural spaces: Small layering pleural effusions can not be excluded, decreased on the left side when compared to the prior. No pneumothorax. Heart/Mediastinum: The cardiomediastinal silhouette is stable in appearance. Bones/joints: The patient is status post median sternotomy. The sternotomy wires appears grossly stable compared to the prior. XR/XR chest 1V portable [id number] IMPRESSION: 1. There are bibasilar opacities, perhaps slightly increased on the right and slightly decreased on the left. Small layering left pleural effusions slightly decreased compared to the prior. Trace right pleural effusion can not be excluded. 2. No other significant change since prior.
--- NOTE | 2022-11-13 22:06 | ECG_ITS ---
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 Measurements Intervals [place] Rate: 90 P: 30 [place]: 141 QRS: 25 QRSD: 89 T: 57 QT: 363 QTc: 445 Interpretive Statements SINUS RHYTHM POSSIBLE LEFT ATRIAL ENLARGEMENT [-0.1mV P-WAVE IN V1/V2] Compared to ECG 10/30/2022 21:37:46 No significant changes Electronically Signed On 11-14-2022 8:18:59 CDT by Jade Hutton M.D. [email or web address]. john of [facility] hospital.ConsiderC/store/NU/[id number] f
[2022-11-13 22:29] LABS: Basophils # 0.1 10^3/uL (0.0-0.1); Basophils % 0.6 %; Eosinophils # 0.5 10^3/uL (0.0-0.8); Eosinophils % 4.7 %; Hematocrit 38.7 % (37.0-47.0); Hemoglobin 12.1 g/dL (11.5-15.3); Lymphocytes # 3.2 10^3/uL (0.8-4.8); Lymphocytes % 32.8 %; Mean Corpuscular HGB Conc 31.3 g/dL (30.0-36.0); Mean Corpuscular Hemoglobin 28.5 pg (28.0-34.0); Mean Corpuscular Volume 91.3 fl (81-99); Monocytes # 0.8 10^3/uL (0.2-0.9); Neutrophils # 5.28 10^3/uL (1.8-7.7); Neutrophils % 53.6 %; Nucleated Red Blood Cells % 0 %; Platelet Count 329 10^3/cmm (130-400); Red Blood Count 4.24 10^6/uL (4.1-5.3); Red Cell Distribution Width 13.3 % (12.1-15.1); White Blood Count 9.9 10^3/uL (4.0-10.0)
[2022-11-13 22:30] VITALS: BP 121/71; PULSE 83; RESP 13; O2SAT 98
[2022-11-13 22:45] VITALS: BP 115/64; PULSE 84; RESP 15; O2SAT 99
[2022-11-13 22:56] LABS: Troponin(5th) Baseline 9 ng/L (0-10)
[2022-11-13 23:00] VITALS: BP 113/70; PULSE 86; RESP 18; O2SAT 99
[2022-11-13 23:02] LABS: Alanine Aminotransferase 15 U/L (0-33); Albumin Level 4.1 g/dL (3.5-5.2); Alkaline Phosphatase 59 U/L (35-105); Aspartate Amino Transferase 13 U/L (0-32); Blood Urea Nitrogen 16 mg/dL (6-20); Calcium 9.6 mg/dL (8.5-10.5); Carbon Dioxide 24 mmol/L (22-29); Chloride 101 mmol/L (98-107); Globulin 2.6 g/dL (1.3-4.6); Glomerular Filtration Rate 182.7 mL/min (90-130); Glucose 214 mg/dL (65-115); Lipase 24 U/L (13-60); NT Pro B Type Natriuretic Pept 183 pg/mL (0-125); Osmolality Calculated 292 mOsm/kg (285-295); Sodium 137 mmol/L (136-145); Total Bilirubin 0.2 mg/dL (0.15-1.2); Total Protein 6.7 g/dL (6.6-8.7)
[2022-11-13 23:30] VITALS: BP 136/78; PULSE 96; RESP 14; O2SAT 99
[2022-11-13 23:45] VITALS: BP 117/85; PULSE 88; RESP 15; O2SAT 98
--- NOTE | 2022-11-14 00:06 | ECG_ITS ---
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 Measurements Intervals [place] Rate: 88 P: 40 [place]: 155 QRS: 33 QRSD: 91 T: 61 QT: 379 QTc: 459 Interpretive Statements SINUS RHYTHM POSSIBLE LEFT ATRIAL ENLARGEMENT [-0.1mV P-WAVE IN V1/V2] Compared to ECG 10/30/2022 21:37:46 No significant changes Electronically Signed On 11-14-2022 8:21:33 CDT by Jade Hutton M.D. [id number]
[2022-11-14 01:00] VITALS: BP 129/81; PULSE 88; RESP 16; O2SAT 98
[2022-11-14 01:26] LABS: Troponin 5 2HR 11.69 ng/L (0-10); Troponin 5 2HR Delta 2.69 ABS# (0-10)
[2022-11-14 01:42] VITALS: BP 129/76; PULSE 94; RESP 16; O2SAT 97
== END 2022-11-14 01:43 | disposition home or self-care (01) ==
PROVIDERS: Emergency Provider Emergency Medicine; PCP Family Medicine
DX: R07.9 Chest pain, unspecified (principal); E11.65 Type 2 diabetes mellitus with hyperglycemia; Z95.1 Presence of aortocoronary bypass graft; I25.2 Old myocardial infarction
CPT/HCPCS: 71045; 80053; 83690; 83880; 84484; 85025; 93005; 99285

== ENCOUNTER → 2023-01-11 10:42 | Outpatient (BNVA) | payer MEDICAID, SELFPAY | PROVIDERS: PCP Family Medicine; Visit Provider Internal Medicine Cardiovascular Disease | DX: I25.10 Atherosclerotic heart disease of native coronary artery without angina pectoris (principal); I10 Essential (primary) hypertension; E78.00 Pure hypercholesterolemia, unspecified; E11.65 Type 2 diabetes mellitus with hyperglycemia; Z82.49 Family history of ischemic heart disease and other diseases of the circulatory system; Z95.1 Presence of aortocoronary bypass graft; F17.200 Nicotine dependence, unspecified, uncomplicated; Z79.4 Long term (current) use of insulin | CPT/HCPCS: 99214 ==

== ENCOUNTER 2023-01-21 20:52 | Emergency (ER) | payer MEDICAID, SELFPAY ==
[2023-01-21 20:53] VITALS: RESP 18; BMI 35.5
[2023-01-21 21:00] VITALS: PULSE 71; TEMP 36.6; O2SAT 98
--- NOTE | 2023-01-21 21:05 | ECG_ITS ---
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 Measurements Intervals [place] Rate: 60 P: 45 MD: 160 QRS: 73 QRSD: 109 T: 75 QT: 420 QTc: 420 Interpretive Statements SINUS RHYTHM Nonspecific T wave change Compared to ECG 11/14/2022 00:33:50 No significant changes Electronically Signed On 01-21-2023 22:49:16 CDT by Pam Subramanian M.D. [email or web address] [email or web address]/store/[id number]
--- NOTE | 2023-01-21 21:06 | W.ED.CHESTPA ---
HPI - Chest Pain General: Chief Complaint: Chest Pain Stated Complaint: CP Time Seen by Provider: 01/21/23 20:55 History of Present Illness: 37-year-old female presents to the emergency department stating that about 1 hour ago she started having burning pain in the epigastric region that was sort of radiating along her anterior rib margins. It also radiated up centrally about mcc up her chest. She says it feels like burning . She says she was arguing with her kids about cleaning up after themselves and was frustrated with them. She also had been drinking some coffee. She does have a history of CAD; she reports she has a history of having to have her heart valve replaced. She says that since she has been on so many medications, she has been constipated and having a few stomach issues. No shortness of breath, no radiation into the shoulders neck or jaw. No lightheadedness, near syncopal symptoms, hemoptysis, pleurodynia. Associated symptoms: Reports abdominal pain and nausea; Deny dyspnea, fever(s), palpitations, syncope or vomiting Review of Systems General: Reports: 10 or more systems reviewed and unremarkable except in HPI and below Const: Denies: fever(s), chills or body aches Eyes: Denies: change in vision ENMT: Denies: throat pain Card: Denies: palpitations, edema, swelling of feet/ankles, lightheadedness, syncope, pre-syncope or dyspnea on exertion Resp: Denies: dyspnea or productive cough GI: Reports: abdominal pain, nausea, heartburn, constipation and GI cramping; Denies: vomiting, hematemesis, coffee ground emesis or diarrhea : Denies: flank pain, dysuria or urinary frequency Musc: Denies: neck pain, back pain, extremity pain or extremity swelling Skin/Breast: Denies: rash or erythema Neuro: Denies: headache(s), numbness in extremities, weakness in extremities, lack of coordination or difficulty walking [facility] ED PFSH: Medical History (Updated 01/21/23 @ 22:28 by Luis Mcdermott MD) Abnormal cardiovascular stress test Bed bug bite CAD (coronary artery disease) delivery delivered Chest pain Diabetes type 2, uncontrolled Family history of early CAD Family history of premature CAD High cholesterol Hypercholesteremia Hypertension Nicotine dependence, cigarettes, with unspecified nicotine-induced disorders Osteoarthritis of left knee STEMI (ST elevation myocardial infarction) Surgical History H/O tubal ligation History of delivery x 2 Family History Father Diabetes Heart disease Mother Diabetes COPD (chronic obstructive pulmonary disease) Emphysema lung Heart disease Kidney failure Arthritis Social History Smoking and tobacco status: current every day smoker Quit status (tobacco): not considering quitting Second hand smoke exposure: No Smoking risk assessment/counseling performed?: Yes Desire information about alcohol rehabilitation?: No Counseling given: No Substance/Drug Use: never Desire information about substance/drug rehabilitation?: No Counseling given: No Adopted: No Caregiver/support person: No Lives independently: Yes Housing: House Marital status: Number of children: 2 Highest education level completed: 9th Grade service: No Female Reproductive History: Date of last menstrual period: 12/26/22 Physical Exam Const: COMMON NORMALS: no limitations, alert and well nourished EXAM LIMITATIONS: no altered mental status HENMT: COMMON NORMALS: normocephalic, atraumatic and external ears normal HEAD & SCALP: normocephalic and atraumatic EXTERNAL EAR: Yes external ears normal MOUTH: no muffled voice Eye: COMMON NORMALS: EOMs intact bilaterally, conjunctivae normal and no scleral icterus CONJUNCTIVA: Yes conjunctivae normal Neck/C-Spine: COMMON NORMALS: no JVD GENERAL: Yes normal visual inspection and Yes trachea midline Resp: COMMON NORMALS: normal respiratory effort, No use of accessory muscles and clear to auscultation bilaterally AUSCULTATION: clear to auscultation bilaterally Cardio: COMMON NORMALS: no JVD, regular rate and regular rhythm RATE: regular rate RHYTHM: regular rhythm GI: COMMON NORMALS: Soft to palpation PALPATION: Yes Soft to palpation and No Guarding due to palpation present (GI) OTHER: Negative Pa sign. Mild tenderness in the subxiphoid region. No other tenderness is present. No guarding, no rebound Extremity: COMMON NORMALS: normal to inspection Neuro: COMMON NORMALS: moves all extremities, no focal motor deficits and no sensory deficits noted SENSORIUM/ORIENTATION: Yes alert SPEECH: speech normal Psych: COMMON NORMALS: mental status grossly normal, Normal thought process present, cooperative and speech normal SPEECH: Yes normal speech THOUGHT PROCESS: Normal thought process present OTHER: Patient seems stressed out about her children not listening to her. Skin: COMMON NORMALS: turgor normal and no jaundice GENERAL SKIN EXAM: turgor normal OTHER: Some chronic appearing skin changes on her forearms. Course Vital Signs: Vital signs: Vital Signs Temperature 97.9 F 01/21/23 21:00 Pulse Rate 71 01/21/23 21:00 Respiratory Rate 18 01/21/23 20:53 Blood Pressure 107/57 01/21/23 21:21 Pulse Oximetry 98 01/21/23 21:00 Oxygen Delivery Me thod Room Air 01/21/23 21:00 MDM - Chest Pain Medical Decision Making Differential diagnosis includes gastritis, hiatal hernia, atypical ACS, hepatobiliary, dyspepsia, other. The patient appears in no distress. There is only mild tenderness in the subxiphoid region. She has reiterated multiple times that it feels like there is burning. She had some emotional upset when it started. Wondering if this is just a case of gastritis. Because of her history I would like to obtain an EKG. If there are any concerning findings there then we can add on further work-up. Otherwise, I like to try aluminum magnesium hydroxide with simethicone and Pepcid. If this completely resolves her symptoms and EKG does not show any signs of active ischemia, then I do not think we need to go any further. EKG shows a sinus rhythm at a rate of 60, there is a normal axis, QRS is 109 ms, there is a T wave inversion in V1 and V3. I looked back at her last several EKGs. There were T wave inversions through the precordium. The depth of the T wave inversion seems to vary between V1, V2 and V3 from EKG to EKG but the overall appearance is similar. This is the same with the T wave inversion in aVL, similar to previous. I repeated assessment on the patient. She says that the burning has stopped. She still feels a mild discomfort under both of her ribs. I repeated the examination and she still only has mild tenderness in the subxiphoid region and nowhere else. There is no signs of acute cholecystitis, hepatitis, tenderness over the pancreas, guarding, rigidity, peritoneal signs. I explained to the patient that my pretest suspicion for an acute abdomen is low however I wanted her to participate and make a decision about whether she wanted CT of the abdomen and pelvis for further evaluation. I did explain the benefits including evaluation of the anatomy and its diagnostic utility. I also explained the radiation exposure. The patient thought about it for a while and decided that she would like to go home and see how it goes for another 12 hours or so. She says if its going to come back then she will return to the emergency department. She says stuff like this happens when she gets upset, as she was tonight with her children. Discharge Plan Discharge Patient Disposition: Home Clinical Impression: Abdominal discomfort, epigastric Condition: Stable Prescriptions: No Action nitroglycerin [Nitrostat] 0.4 mg tablet, sublingual 0.4 mg sublingual Q5M PRN (Reason: chest pain) Qty: 25 1RF Rx Instructions: do not exceed 3 doses per episode (DME) Dexcom G7 Sensor Device See Rx Instructions .ROUTE .MEDSUPPLY Qty: 6 0RF Rx Instructions: Change every 10days (DME) Dexcom G7 [employer]st Misc See Rx Instructions .Route Qty: 1 0RF Rx Instructions: As directed insulin glargine [Lantus Solostar U-100 Insulin] 100 unit/mL (3 mL) insulin pen 40 unit SUBCUT DAILY 60 Days Qty: 15 0RF aspirin 81 mg tablet,delayed release (DR/EC) 81 mg PO DAILY atorvastatin 80 mg tablet 80 mg PO DAILY Qty: 90 3RF (DME) blood-glucose meter [OneTouch Ultra2 Meter] Kit See Rx Instructions .Route Qty: 1 0RF Rx Instructions: check sugar 4-6 times a day (DME) OneTouch Ultra Test Strip See Rx Instructions .Route Qty: 400 1RF Rx Instructions: checck sugar 4-6 times (DME) lancets [OneTouch UltraSoft Lancets] Misc See Rx Instructions .Route Qty: 200 1RF Rx Instructions: As directed clopidogrel 75 mg tablet 75 mg PO DAILY 30 Days Qty: 30 5RF carvedilol 6.25 mg tablet 6.25 mg PO BID Qty: 180 0RF spironolactone 25 mg tablet 25 mg PO DAILY Qty: 90 0RF Novolog FlexPen U-100 Insulin 100 unit/mL (3 mL) insulin pen See Rx Instructions .ROUTE .COMPLEX Qty: 30 0RF Dose Instruction: INJECT DIRECTED SUBCUTANEOUSLY 3 TIMES DAILY AFTER MEALS BASED ON SLIDING SCALE, MAX 40 UNITS/DAY Rx Instructions: INJECT DIRECTED SUBCUTANEOUSLY 3 TIMES DAILY AFTER MEALS BASED ON SLIDING SCALE, MAX 40 UNITS/DAY Trulicity 1.5 mg/0.5 mL pen injector 1.5 mg SUBCUT Q7D 30 Days Qty: 2.5 0RF Rx Instructions: 0.75mg weekly for 1 month, 1.5mg weekly for 1 month, then 3mg weekly Trulicity 3 mg/0.5 mL pen injector 3 mg SUBCUT Q7D 30 Days Qty: 2.5 0RF Rx Instructions: 0.75mg weekly for 1 month, 1.5mg weekly for 1 month, then 3mg weekly (DME) pen needle, diabetic [BD Ultra-Fine Short Pen Needle] 31 gauge x 5/16 needle See Rx Instructions .ROUTE .MEDSUPPLY Qty: 200 0RF Rx Instructions: As directed Trulicity 0.75 mg/0.5 mL pen injector See Rx Instructions .ROUTE .COMPLEX Qty: 2 0RF Dose Instruction: INJECT 0.5MLS SUBCUTANEOUSLY EVERY 7 DAYS Rx Instructions: INJECT 0.5MLS SUBCUTANEOUSLY EVERY 7 DAYS Jardiance 10 mg tablet See Rx Instructions .ROUTE .COMPLEX Qty: 30 1RF Dose Instruction: TAKE 1 TABLET BY MOUTH IN THE MORNING Rx Instructions: TAKE 1 TABLET BY MOUTH IN THE MORNING Discharge Orders: Discharge ED (Routine); Ordered 01/21/23 Ordered By: Luis Mcdermott Referrals: Kasey Naqvi DO [Primary Care Provider] - Discharge Diet: As Directed Discharge Activity: Resume usual activity Patient Instructions: Abdominal Pain - Adult, Opioid Safety, Pain Management Activity Restrictions/Additional Instructions: Today you have been diagnosed with epigastric discomfort and burning. Additional information has been provided as handouts, please take the time to read and understand this information. It is very important that you follow up with a Doctor as discussed during your visit today, the information to contact your doctor is included in your discharge instructions. Failure to adhere to your follow up instructions may lead to severe disability, injury, or so please make sure to keep your appointments. Please return to the Emergency Department immediately and without fail if you experience any new, worsening, or concerning problems such as: increasing pain, cough chest pain, shortness of breath, headache or body pain, fever, lightheadedness, weakness, numbness, or any other concerning symptoms. If taking a substance like an opiate or other strong pain medication, please do not drive or operate heavy machinery while under the effects of this medicine. Thank you for allowing us to participate in your care today. Coding Level of Care Code ED Packing Room Supervisor for Marii Alegria
[2023-01-21 21:21] VITALS: BP 107/57
[2023-01-21] MEDS: alum-mag-hydroxide-sime 30 mL UDC PO (21:27)
[2023-01-21] MEDS: famotidine 20 mg Tablet 40 MG PO (21:28)
[2023-01-21 22:43] VITALS: BP 179/85; PULSE 66; O2SAT 99
== END 2023-01-21 22:46 | disposition home or self-care (01) ==
PROVIDERS: Emergency Provider Emergency Medicine; PCP Family Medicine
DX: R10.13 Epigastric pain (principal); E11.9 Type 2 diabetes mellitus without complications; I10 Essential (primary) hypertension; E78.00 Pure hypercholesterolemia, unspecified; I25.10 Atherosclerotic heart disease of native coronary artery without angina pectoris; I25.2 Old myocardial infarction; F17.200 Nicotine dependence, unspecified, uncomplicated; Z79.4 Long term (current) use of insulin; Z79.84 Long term (current) use of oral hypoglycemic drugs; Z79.85 Long-term (current) use of injectable non-insulin antidiabetic drugs; Z79.899 Other long term (current) drug therapy; Z82.49 Family history of ischemic heart disease and other diseases of the circulatory system
CPT/HCPCS: 93005; 99283

== ENCOUNTER 2023-01-22 00:42 | Inpatient (IN) | payer MEDICAID, SELFPAY ==
[2023-01-22] VITALS (16 sets, daily range): BP systolic 113–177; BP diastolic 71–109; PULSE 65–92; RESP 15–18; TEMP 36.2–37; O2SAT 93–100; BMI 35.5
--- NOTE | 2023-01-22 01:31 | ED_ITS ---
Documented by User: RIK Santiago 01/22/23 02:44 HPI - Chest Pain General: Chief Complaint: Chest Pain Stated Complaint: cp Time Seen by Provider: 01/22/23 01:18 History of Present Illness: 37yo female presents with family for the second time tonmaribeth for evaluation of epigastric pain that she describes as sharp and burning in nature. Patient sta dayron it started when she was arguing with her kids earlier this evening. She reports that it radiates to the right side of her abdomen as well as up into her chest. She reports she had cardiac valve replacement in October of this year. Patient states when she was here earlier, she did have some improvement with the medications she was provided with in the emergency department. She reports that she did try milk of magnesia at home, but it did not help. Reports she is having nausea and attempted to vomit, but was unable. Patient states that her pain is worse when she is laying flat. She states that her symptoms returned and have been progressively worsening. Patient's family members are very concerned of it being related to her heart. Patient again states that the pain is epigastric in nature and radiates to the right upper quadrant and into the chest on the right side. Patient denies fever, chills, vomiting, difficulty breathing, shortness of breath, any other concern at this time. Patient does states that she has had previous abdominal surgeries of 2 sections. She states that she still has her gallbladder. Associated symptoms: Reports abdominal pain (epigastric radiating to the RUQ) and nausea; Deny diaphoresis, dyspnea or fever(s) Review of Systems Const: Denies: fever(s), chills, body aches or diaphoresis Eyes: Denies: change in vision Card: Reports: chest pain (radiating from abdomen, right sided) Resp: Denies: dyspnea GI: Reports: abdominal pain (epigastric radiating to the RUQ) and nausea : Denies: dysuria Neuro: Denies: headache(s) PFS ED PFSH: Medical History (Updated 01/22/23 @ 04:54 by Edgardo Saez MD) Abnormal cardiovascular stress test Bed bug bite CAD (coronary artery disease) delivery delivered Chest pain Diabetes type 2, uncontrolled Family history of early CAD Family history of premature CAD High cholesterol Hypercholesteremia Hypertension Nicotine dependence, cigarettes, with unspecified nicotine-induced disorders Osteoarthritis of left knee STEMI (ST elevation myocardial infarction) Surgical History H/O tubal ligation History of delivery x 2 Family History Father Diabetes Heart disease Mother Diabetes COPD (chronic obstructive pulmonary disease) Emphysema lung Heart disease Kidney failure Arthritis Social History Smoking and tobacco status: current every day smoker Quit status (tobacco): not considering quitting Second hand smoke exposure: No Smoking risk assessment/counseling performed?: Yes Desire information about alcohol rehabilitation?: No Counseling given: No Substance/Drug Use: never Desire information about substance/drug rehabilitation?: No Counseling given: No Adopted: No Caregiver/support person: No Lives independently: Yes Housing: House Marital status: Number of children: 2 Highest education level completed: 9th Grade service: No Female Reproductive History: Date of last menstrual period: 12/20/22 Physical Exam Const: COMMON NORMALS: patient oriented x3 and alert GENERAL APPEARANCE: cooperative ORIENTATION/CONSCIOUSNESS: Yes awake OTHER: Patient is sitting upright on the stretcher holding her abdomen and appears to be uncomfortable, but in no acute distress. Family is at bedside HENMT: COMMON NORMALS: normocephalic HEAD & SCALP: normocephalic Eye: GENERAL EYE: appearance normal, both eyes and all related structures Neck/C-Spine: COMMON NORMALS: full ROM Chest: CHEST: Yes Symmetrical chest wall rise Resp: COMMON NORMALS: normal respiratory effort and clear to auscultation bilaterally EFFORT & INSPECTION: Yes able to speak in complete sentences AUSCULTATION: clear to auscultation bilaterally Cardio: COMMON NORMALS: regular rate and regular rhythm RATE: regular rate RHYTHM: regular rhythm GI: COMMON NORMALS: Soft to palpation PALPATION: Yes Soft to palpation and Yes Tenderness to palpation present (GI) Details: RUQ and other (epigastric) Extremity: COMMON NORMALS: full ROM Neuro: COMMON NORMALS: patient oriented x3 SENSORIUM/ORIENTATION: Yes alert Psych: COMMON NORMALS: cooperative Course Vital Signs: Vital signs: Vital Signs Temperature 98.4 F 01/22/23 00:47 Pulse Rate 65 01/22/23 04:31 Respiratory Rate 16 01/22/23 04:31 Blood Pressure 155/108 01/22/23 04:31 Pulse Oximetry 99 01/22/23 04:31 Oxygen Delivery Me thod Room Air 01/22/23 04:31 MDM - Chest Pain Medical Decision Making 37yo female here with family for evaluation of epigastric pain that radiates to the right upper quadrant as well as to the right chest. Patient was at this ER earlier this evening for epigastric pain, but declined labs and imaging at that time. She did have an EKG due to her history of recent cardiac valve replacement. EKG was noted to be a sinus rhythm with a rate of 60 with T wave inversion, similar to previous EKGs. Patient magnesium hydroxide with simethicone and Pepcid while in the emergency department earlier today and reported some improvement in her symptoms. States that it worsened again when she got home and she attempted milk of magnesia, but did not have improvement. She states she has had nausea, but no vomiting. Previous abdominal surgical history of 2 sections. She denies difficulty breathing, shortness of b reath, left-sided chest pain, vomiting, diarrhea. Patient appears uncomfortable, but is nontoxic. Vital signs are stable. Patient and family would like labs and imaging at this time. EKG shows sinus bradycardia at 59 with T wave inversions, similar to previous. Differentials include: Gastritis, cholecystitis, cholelithiasis, ACS Lab Data 01/22/23 02:09 01/22/23 03:25 Radiology Impressions Abdomen Ultrasound 01/22/23 01:38 IMPRESSION: 1. 2 large gallstones. Mild asymmetric gallbladder wall thickening. There is a positive sonographic Pa's sign per report from the hyperbaric technologist. Findings raise suspicion for cholecystitis. 2. Mild hepatomegaly Laboratory Results WBC 15.5 10^3/uL (4.0-10.0) H 01/22/23 02:09 RBC 5.53 10^6/uL (4.1-5.3) H 01/22/23 02:09 Hgb 15.3 g/dL (11.5-15.3) 01/22/23 02:09 Hct 47.6 % (37.0-47.0) H 01/22/23 02:09 MCV 86.1 fl (81-99) 01/22/23 02:09 MCH 27.7 pg (28.0-34.0) L 01/22/23 02:09 MCHC 32.1 g/dL (30.0-36.0) 01/22/23 02:09 RDW 12.6 % (12.1-15.1) 01/22/23 02:09 Plt Count 327 10^3/cmm (130-400) 01/22/23 02:09 MPV 9.2 fL (7.4-10.4) 01/22/23 02:09 Neut % (Auto) 80.9 % 01/22/23 02:09 Lymph % (Auto) 13.8 % 01/22/23 02:09 [place] % (Auto) 4.1 % 01/22/23 02:09 Eos % (Auto) 0.5 % 01/22/23 02:09 Baso % (Auto) 0.3 % 01/22/23 02:09 Neut # (Auto) 12.55 10^3/uL (1.8-7.7) H 01/22/23 02:09 Lymph # (Auto) 2.1 10^3/uL (0.8-4.8) 01/22/23 02:09 [place] # (Auto) 0.6 10^3/uL (0.2-0.9) 01/22/23 02:09 Eos # (Auto) 0.1 10^3/uL (0.0-0.8) 01/22/23 02:09 Baso # (Auto) 0.0 10^3/uL (0.0-0.1) 01/22/23 02:09 Nucleated RBC % (auto) 0 % 01/22/23 02:09 Nucleated RBCs # 0.0 /100WBC 01/22/23 02:09 Sodium 135 mmol/L (136-145) L 01/22/23 03:25 Potassium 4.1 mmol/L (3.5-5.1) 01/22/23 03:25 Chloride 101 mmol/L (98-107) 01/22/23 03:25 Carbon Dioxide 21 mmol/L (22-29) L 01/22/23 03:25 Anion Gap 17.1 (5-19) 01/22/23 03:25 BUN 10 mg/dL (6-20) 01/22/23 03:25 Creatinine 0.3 mg/dL (0.5-0.9) L 01/22/23 03:25 GFR Calculation 253.2 mL/min (90-130) H 01/22/23 03:25 Glucose 194 mg/dL (65-115) H 01/22/23 03:25 POC Glucose 160 mg/dL (70-110) H 01/22/23 01:50 Calculated Osmolality 284 mOsm/kg (285-295) L 01/22/23 03:25 Calcium 8.8 mg/dL (8.5-10.5) 01/22/23 03:25 Total Bilirubin 0.2 mg/dL (0.15-1.2) 01/22/23 03:25 AST 16 U/L (0-32) 01/22/23 03:25 ALT 20 U/L (0-33) 01/22/23 03:25 Alkaline Phosphatase 75 U/L (35-105) 01/22/23 03:25 Troponin T Baseline 9 ng/L (0-10) 01/22/23 02:09 NT-Pro-B Natriuret Pep 365 pg/mL (0-125) H 01/22/23 03:25 Total Protein 7.3 g/dL (6.6-8.7) 01/22/23 03:25 Albumin 3.9 g/dL (3.5-5.2) 01/22/23 03:25 Globulin 3.4 g/dL (1.3-4.6) 01/22/23 03:25 Lipase 17 U/L (13-60) 01/22/23 03:25 Urine Color Light yellow (Yellow) 01/22/23 02:32 Urine Appearance Clear (CLEAR) 01/22/23 02:32 Urine pH 8 (5-7) H 01/22/23 02:32 Ur Specific [place] 1.010 (1.005-1.030) 01/22/23 02:32 Urine Protein Neg (Negative) 01/22/23 02:32 Urine Glucose (UA) 4+ (Normal) H 01/22/23 02:32 Urine Ketones 1+ (Negative) H 01/22/23 02:32 Urine Blood Neg (Negative) 01/22/23 02:32 Urine Nitrate Negative (Negative) 01/22/23 02:32 Urine Bilirubin Neg (Negative) 01/22/23 02:32 Prot Sulfosalicylic Acd Negative (Negative) 01/22/23 02:32 Urine Urobilinogen Neg mg/dL (Negative) 01/22/23 02:32 Ur Leukocyte Esterase Negative (Negative) 01/22/23 02:32 Discharge Plan Discharge Patient Disposition: Admitted As Inpatient Clinical Impression: Acute cholecystitis, Abdominal pain Condition: Stable Prescriptions: No Action nitroglycerin [Nitrostat] 0.4 mg tablet, sublingual 0.4 mg sublingual Q5M PRN (Reason: chest pain) Qty: 25 1RF Rx Instructions: do not exceed 3 doses per episode (DME) Dexcom G7 Sensor Device See Rx Instructions .ROUTE .MEDSUPPLY Qty: 6 0RF Rx Instructions: Change every 10days (DME) Dexcom G7 [place] [employer] [place] Misc See Rx Instructions .Route Qty: 1 0RF Rx Instructions: As directed insulin glargine [Lantus Solostar U-100 Insulin] 100 unit/mL (3 mL) insulin pen 40 unit SUBCUT DAILY 60 Days Qty: 15 0RF aspirin 81 mg tablet,delayed release (DR/EC) 81 mg PO DAILY atorvastatin 80 mg tablet 80 mg PO DAILY Qty: 90 3RF (DME) blood-glucose meter [OneTouch Ultra2 Meter] Kit See Rx Instructions .Route Qty: 1 0RF Rx Instructions: check sugar 4-6 times a day (DME) OneTouch Ultra Test Strip See Rx Instructions .Route Qty: 400 1RF Rx Instructions: checck sugar 4-6 times (DME) lancets [OneTouch UltraSoft Lancets] Misc See Rx Instructions .Route Qty: 200 1RF Rx Instructions: As directed clopidogrel 75 mg tablet 75 mg PO DAILY 30 Days Qty: 30 5RF carvedilol 6.25 mg tablet 6.25 mg PO BID Qty: 180 0RF spironolactone 25 mg tablet 25 mg PO DAILY Qty: 90 0RF Novolog FlexPen U-100 Insulin 100 unit/mL (3 mL) insulin pen See Rx Instructions .ROUTE .COMPLEX Qty: 30 0RF Dose Instruction: INJECT DIRECTED SUBCUTANEOUSLY 3 TIMES DAILY AFTER MEALS BASED ON SLIDING SCALE, MAX 40 UNITS/DAY Rx Instructions: INJECT DIRECTED SUBCUTANEOUSLY 3 TIMES DAILY AFTER MEALS BASED ON SLIDING SCALE, MAX 40 UNITS/DAY Trulicity 1.5 mg/0.5 mL pen injector 1.5 mg SUBCUT Q7D 30 Days Qty: 2.5 0RF Rx Instructions: 0.75mg weekly for 1 month, 1.5mg weekly for 1 month, then 3mg weekly Trulicity 3 mg/0.5 mL pen injector 3 mg SUBCUT Q7D 30 Days Qty: 2.5 0RF Rx Instructions: 0.75mg weekly for 1 month, 1.5mg weekly for 1 month, then 3mg weekly (DME) pen needle, diabetic [BD Ultra-Fine Short Pen Needle] 31 gauge x 5/16 needle See Rx Instructions .ROUTE .MEDSUPPLY Qty: 200 0RF Rx Instructions: As directed Trulicity 0.75 mg/0.5 mL pen injector See Rx Instructions .ROUTE .COMPLEX Qty: 2 0RF Dose Instruction: INJECT 0.5MLS SUBCUTANEOUSLY EVERY 7 DAYS Rx Instructions: INJECT 0.5MLS SUBCUTANEOUSLY EVERY 7 DAYS Jardiance 10 mg tablet See Rx Instructions .ROUTE .COMPLEX Qty: 30 1RF Dose Instruction: TAKE 1 TABLET BY MOUTH IN THE MORNING Rx Instructions: TAKE 1 TABLET BY MOUTH IN THE MORNING Referrals: Kasey Naqvi DO [Primary Care Provider] - Coding Level of Care Code ED Channel Account Manager for Chg Fwd Documented by User: Edgardo Saez MD 01/22/23 04:54 HPI - Chest Pain General: Chief Complaint: Chest Pain Stated Complaint: cp Time Seen by Provider: 01/22/23 01:18 [facility] ED PFS: Medical History (Updated 01/22/23 @ 04:54 by Edgardo Saez MD) Abnormal cardiovascular stress test Bed bug bite CAD (coronary artery disease) delivery delivered Chest pain Diabetes type 2, uncontrolled Family history of early CAD Family history of premature CAD High cholesterol Hypercholesteremia Hypertension Nicotine dependence, cigarettes, with unspecified nicotine-induced disorders Osteoarthritis of left knee STEMI (ST elevation myocardial infarction) Surgical History H/O tubal ligation History of delivery x 2 Family History Father Diabetes Heart disease Mother Diabetes COPD (chronic obstructive pulmonary disease) Emphysema lung Heart disease Kidney failure Arthritis Social History Smoking and tobacco status: current every day smoker Quit status (tobacco): not considering quitting Second hand smoke exposure: No Smoking risk assessment/counseling performed?: Yes Desire information about alcohol rehabilitation?: No Counseling given: No Substance/Drug Use: never Desire information about substance/drug rehabilitation?: No Counseling given: No Adopted: No Caregiver/support person: No Lives independently: Yes Housing: House Marital status: Number of children: 2 Highest education level completed: 9th Grade service: No Course Vital Signs: Vital signs: Vital Signs Temperature 98.4 F 01/22/23 00:47 Pulse Rate 65 01/22/23 04:31 Respiratory Rate 16 01/22/23 04:31 Blood Pressure 155/108 01/22/23 04:31 Pulse Oximetry 99 01/22/23 04:31 Oxygen Delivery Me thod Room Air 01/22/23 04:31 MDM - Chest Pain Medical Decision Making 37yo female here with family for evaluation of epigastric pain that radiates to the right upper quadrant as well as to the right chest. Patient was at this ER earlier this evening for epigastric pain, but declined labs and imaging at that time. She did have an EKG due to her history of recent cardiac valve replacement. EKG was noted to be a sinus rhythm with a rate of 60 with T wave inversion, similar to previous EKGs. Patient magnesium hydroxide with simethicone and Pepcid while in the emergency department earlier today and reported some improvement in her symptoms. States that it worsened again when she got home and she attempted milk of magnesia, but did not have improvement. She states she has had nausea, but no vomiting. Previous abdominal surgical history of 2 sections. She denies difficulty breathing, shortness of breath, left-sided chest pain, vomiting, diarrhea. Patient appears uncomfortable, but is nontoxic. Vital signs are stable. Patient and family would like labs and imaging at this time. EKG shows sinus bradycardia at 59 with T wave inversions, similar to previous. Differentials include: Gastritis, cholecystitis, cholelithiasis, ACS I reviewed the patient's previous medical record from her earlier ER visit. I did assume care of the patient from the midlevel provider and will contact the general surgeon for the patient's cholecystitis with resultant potential cholecystectomy. I will provide the patient cefepime given her elevated white blood cell count and anticipation for potential surgical intervention. Medical Records I reviewed the patient's medical records. Lab Data I reviewed the patient's lab results. 01/22/23 02:09 01/22/23 03:25 Radiology Impressions Abdomen Ultrasound 01/22/23 01:38 IMPRESSION: 1. 2 large gallstones. Mild asymmetric gallbladder wall thickening. There is a positive sonographic Pa's sign per report from the hyperbaric technologist. Findings raise suspicion for cholecystitis. 2. Mild hepatomegaly Laboratory Results WBC 15.5 10^3/uL (4.0-10.0) H 01/22/23 02:09 RBC 5.53 10^6/uL (4.1-5.3) H 01/22/23 02:09 Hgb 15.3 g/dL (11.5-15.3) 01/22/23 02:09 Hct 47.6 % (37.0-47.0) H 01/22/23 02:09 MCV 86.1 fl (81-99) 01/22/23 02:09 MCH 27.7 pg (28.0-34.0) L 01/22/23 02:09 MCHC 32.1 g/dL (30.0-36.0) 01/22/23 02:09 RDW 12.6 % (12.1-15.1) 01/22/23 02:09 Plt Count 327 10^3/cmm (130-400) 01/22/23 02:09 MPV 9.2 fL (7.4-10.4) 01/22/23 02:09 Neut % (Auto) 80.9 % 01/22/23 02:09 Lymph % (Auto) 13.8 % 01/22/23 02:09 [place] % (Auto) 4.1 % 01/22/23 02:09 Eos % (Auto) 0.5 % 01/22/23 02:09 Baso % (Auto) 0.3 % 01/22/23 02:09 Neut # (Auto) 12.55 10^3/uL (1.8-7.7) H 01/22/23 02:09 Lymph # (Auto) 2.1 10^3/uL (0.8-4.8) 01/22/23 02:09 [place] # (Auto) 0.6 10^3/uL (0.2-0.9) 01/22/23 02:09 Eos # (Auto) 0.1 10^3/uL (0.0-0.8) 01/22/23 02:09 Baso # (Auto) 0.0 10^3/uL (0.0-0.1) 01/22/23 02:09 Nucleated RBC % (auto) 0 % 01/22/23 02:09 Nucleated RBCs # 0.0 /100WBC 01/22/23 02:09 Sodium 135 mmol/L (136-145) L 01/22/23 03:25 Potassium 4.1 mmol/L (3.5-5.1) 01/22/23 03:25 Chloride 101 mmol/L (98-107) 01/22/23 03:25 Carbon Dioxide 21 mmol/L (22-29) L 01/22/23 03:25 Anion Gap 17.1 (5-19) 01/22/23 03:25 BUN 10 mg/dL (6-20) 01/22/23 03:25 Creatinine 0.3 mg/dL (0.5-0.9) L 01/22/23 03:25 GFR Calculation 253.2 mL/min (90-130) H 01/22/23 03:25 Glucose 194 mg/dL (65-115) H 01/22/23 03:25 POC Glucose 160 mg/dL (70-110) H 01/22/23 01:50 Calculated Osmolality 284 mOsm/kg (285-295) L 01/22/23 03:25 Calcium 8.8 mg/dL (8.5-10.5) 01/22/23 03:25 Total Bilirubin 0.2 mg/dL (0.15-1.2) 01/22/23 03:25 AST 16 U/L (0-32) 01/22/23 03:25 ALT 20 U/L (0-33) 01/22/23 03:25 Alkaline Phosphatase 75 U/L (35-105) 01/22/23 03:25 Troponin T Baseline 9 ng/L (0-10) 01/22/23 02:09 NT-Pro-B Natriuret Pep 365 pg/mL (0-125) H 01/22/23 03:25 Total Protein 7.3 g/dL (6.6-8.7) 01/22/23 03:25 Albumin 3.9 g/dL (3.5-5.2) 01/22/23 03:25 Globulin 3.4 g/dL (1.3-4.6) 01/22/23 03:25 Lipase 17 U/L (13-60) 01/22/23 03:25 Urine Color Light yellow (Yellow) 01/22/23 02:32 Urine Appearance Clear (CLEAR) 01/22/23 02:32 Urine pH 8 (5-7) H 01/22/23 02:32 Ur Specific [place] 1.010 (1.005-1.030) 01/22/23 02:32 Urine Protein Neg (Negative) 01/22/23 02:32 Urine Glucose (UA) 4+ (Normal) H 01/22/23 02:32 Urine Ketones 1+ (Negative) H 01/22/23 02:32 Urine Blood Neg (Negative) 01/22/23 02:32 Urine Nitrate Negative (Negative) 01/22/23 02:32 Urine Bilirubin Neg (Negative) 01/22/23 02:32 Prot Sulfosalicylic Acd Negative (Negative) 01/22/23 02:32 Urine Urobilinogen Neg mg/dL (Negative) 01/22/23 02:32 Ur Leukocyte Esterase Negative (Negative) 01/22/23 02:32 Discharge Plan Discharge Patient Disposition: Admitted As Inpatient Clinical Impression: Acute cholecystitis, Abdominal pain Condition: Stable Prescriptions: No Action nitroglycerin [Nitrostat] 0.4 mg tablet, sublingual 0.4 mg sublingual Q5M PRN (Reason: chest pain) Qty: 25 1RF Rx Instructions: do not exceed 3 doses per episode (DME) Dexcom G7 Sensor Device See Rx Instructions .ROUTE .MEDSUPPLY Qty: 6 0RF Rx Instructions: Change every 10days (DME) Dexcom G7 [place] [employer] [place] Misc See Rx Instructions .Route Qty: 1 0RF Rx Instructions: As directed insulin glargine [Lantus Solostar U-100 Insulin] 100 unit/mL (3 mL) insulin pen 40 unit SUBCUT DAILY 60 Days Qty: 15 0RF aspirin 81 mg tablet,delayed release (DR/EC) 81 mg PO DAILY atorvastatin 80 mg tablet 80 mg PO DAILY Qty: 90 3RF (DME) blood-glucose meter [OneTouch Ultra2 Meter] Kit See Rx Instructions .Route Qty: 1 0RF Rx Instructions: check sugar 4-6 times a day (DME) OneTouch Ultra Test Strip See Rx Instructions .Route Qty: 400 1RF Rx Instructions: checck sugar 4-6 times (DME) lancets [OneTouch UltraSoft Lancets] Misc See Rx Instructions .Route Qty: 200 1RF Rx Instructions: As directed clopidogrel 75 mg tablet 75 mg PO DAILY 30 Days Qty: 30 5RF carvedilol 6.25 mg tablet 6.25 mg PO BID Qty: 180 0RF spironolactone 25 mg tablet 25 mg PO DAILY Qty: 90 0RF Novolog FlexPen U-100 Insulin 100 unit/mL (3 mL) insulin pen See Rx Instructions .ROUTE .COMPLEX Qty: 30 0RF Dose Instruction: INJECT DIRECTED SUBCUTANEOUSLY 3 TIMES DAILY AFTER MEALS BASED ON SLIDING SCALE, MAX 40 UNITS/DAY Rx Instructions: INJECT DIRECTED SUBCUTANEOUSLY 3 TIMES DAILY AFTER MEALS BASED ON SLIDING SCALE, MAX 40 UNITS/DAY Trulicity 1.5 mg/0.5 mL pen injector 1.5 mg SUBCUT Q7D 30 Days Qty: 2.5 0RF Rx Instructions: 0.75mg weekly for 1 month, 1.5mg weekly for 1 month, then 3mg weekly Trulicity 3 mg/0.5 mL pen injector 3 mg SUBCUT Q7D 30 Days Qty: 2.5 0RF Rx Instructions: 0.75mg weekly for 1 month, 1.5mg weekly for 1 month, then 3mg weekly (DME) pen needle, diabetic [BD Ultra-Fine Short Pen Needle] 31 gauge x 5/16 needle See Rx Instructions .ROUTE .MEDSUPPLY Qty: 200 0RF Rx Instructions: As directed Trulicity 0.75 mg/0.5 mL pen injector See Rx Instructions .ROUTE .COMPLEX Qty: 2 0RF Dose Instruction: INJECT 0.5MLS SUBCUTANEOUSLY EVERY 7 DAYS Rx Instructions: INJECT 0.5MLS SUBCUTANEOUSLY EVERY 7 DAYS Jardiance 10 mg tablet See Rx Instructions .ROUTE .COMPLEX Qty: 30 1RF Dose Instruction: TAKE 1 TABLET BY MOUTH IN THE MORNING Rx Instructions: TAKE 1 TABLET BY MOUTH IN THE MORNING Referrals: Kasey Naqvi DO [Primary Care Provider] - Coding Level of Care Code ED Channel Account Manager for Marii Alegria
--- NOTE | 2023-01-22 01:38 | USR_ITS ---
PROCEDURE INFORMATION: Exam: US Abdomen, Limited; Right Upper Quadrant Exam date and time: 01/22/2023 2:15 AM Age: 37 years old Clinical indication: Abdominal pain; Other: Ruq pain today; Patient HX: Chemistry not ordered. Under hematology wbc elevated at 15.5; Additional info: Ruq, epigastric pain TECHNIQUE: Imaging protocol: Real time ultrasound of the abdomen with image documentation. Limited exam focused on the right upper quadrant. COMPARISON: CT abdomen pelvis wo con [id number] 05/14/2022 10:39 AM FINDINGS: Liver: The liver is mildly enlarged measuring 18.5 cm in length. Gallbladder: Two stones in the gallbladder measuring 1.7 and 2.6 cm, respectively. There is asymmetric thickening of the gallbladder wall measuring up to 6.3 mm. No pericholecystic fluid. There is a positive sonographic Pa's sign per report from the remote sensing technologist. Biliary ducts: Normal. No stones. No dilation. Pancreas: The pancreas is unremarkable. No pancreatic ductal dilatation. Right kidney: The right kidney is unremarkable. Aorta: Visualized aorta is unremarkable. Inferior vena cava: Visualized IVC is unremarkable. Portal venous: Hepatopetal flow in the portal vein. Hepatic veins: The visualized hepatic veins are patent. Intraperitoneal space: No ascites. US/US abdomen limited [id number] IMPRESSION: 1. 2 large gallstones. Mild asymmetric gallbladder wall thickening. There is a positive sonographic Pa's sign per report from the remote sensing technologist. Findings raise suspicion for cholecystitis. 2. Mild hepatomegaly
[2023-01-22 02:06] LABS: Glucose Point of Care 160 mg/dL (70-110)
[2023-01-22] MEDS: ondansetron 2 mg/ML SDV 2 mL 4 MG IVP ×3 (02:08→11:40)
[2023-01-22] MEDS: morphine 4 mg/mL SDV 1 mL IVP ×2 (02:08→05:04)
[2023-01-22 02:13] LABS: Nucleated Red Blood Cells % 0 %
[2023-01-22 02:15] LABS: Basophils % 0.3 %; Eosinophils # 0.1 10^3/uL (0.0-0.8); Eosinophils % 0.5 %; Hematocrit 47.6 % (37.0-47.0); Hemoglobin 15.3 g/dL (11.5-15.3); Lymphocytes # 2.1 10^3/uL (0.8-4.8); Lymphocytes % 13.8 %; Mean Corpuscular HGB Conc 32.1 g/dL (30.0-36.0); Mean Corpuscular Hemoglobin 27.7 pg (28.0-34.0); Mean Corpuscular Volume 86.1 fl (81-99); Mean Platelet Volume 9.2 fL (7.4-10.4); Monocytes # 0.6 10^3/uL (0.2-0.9); Monocytes % 4.1 %; Neutrophils # 12.55 10^3/uL (1.8-7.7); Neutrophils % 80.9 %; Platelet Count 327 10^3/cmm (130-400); Red Blood Count 5.53 10^6/uL (4.1-5.3); Red Cell Distribution Width 12.6 % (12.1-15.1); White Blood Count 15.5 10^3/uL (4.0-10.0)
[2023-01-22 02:39] LABS: Add Urine Microscopic? NO; Charge for UA Resulting for Rev
[2023-01-22 02:40] LABS: Troponin(5th) Baseline 9 ng/L (0-10)
[2023-01-22 02:41] LABS: Bilirubin Urine Neg (Negative); Blood Urine Neg (Negative); Glucose Urine UA 4+ (Normal); Ketones Urine 1+ (Negative); Leukocyte Esterase Urine Negative (Negative); Nitrate Urine Negative (Negative); Protein Urine Neg (Negative); Sulfosalicylic Acid Urine Negative (Negative); Urine Appearance Clear (CLEAR); Urine Color Light yellow (Yellow); Urobilinogen Urine Neg (Negative); pH Urine 8 (5-7)
[2023-01-22 03:53] LABS: Alanine Aminotransferase 20 U/L (0-33); Albumin Level 3.9 g/dL (3.5-5.2); Alkaline Phosphatase 75 U/L (35-105); Aspartate Amino Transferase 16 U/L (0-32); Blood Urea Nitrogen 10 mg/dL (6-20); Calcium 8.8 mg/dL (8.5-10.5); Carbon Dioxide 21 mmol/L (22-29); Chloride 101 mmol/L (98-107); Globulin 3.4 g/dL (1.3-4.6); Glomerular Filtration Rate 253.2 mL/min (90-130); Glucose 194 mg/dL (65-115); Lipase 17 U/L (13-60); Osmolality Calculated 284 mOsm/kg (285-295); Sodium 135 mmol/L (136-145); Total Bilirubin 0.2 mg/dL (0.15-1.2); Total Protein 7.3 g/dL (6.6-8.7)
[2023-01-22] MEDS: cefepime 2,000 MG in sodium chloride 0.9% (plus) 50 ML 100 MG IV (03:57)
[2023-01-22 04:08] LABS: Anion Gap 17.1 (5-19); Potassium 4.1 mmol/L (3.5-5.1)
[2023-01-22 04:17] LABS: NT Pro B Type Natriuretic Pept 365 pg/mL (0-125)
[2023-01-22] MEDS: piperacillin-tazobactam 3.375 GM in sodium chloride 0.9% (plus) 50 ML IV ×3 (05:03→23:56)
--- NOTE | 2023-01-22 06:21 | PC.NURSE ---
Unable to complete med rec at this time. Patient does not have a list of her home medications and does not know them.
--- NOTE | 2023-01-22 08:25 | PC.PHAR ---
PT STATES 2 NEW MEDS: BUSPIRONE 10 MG TABLET, WRITTEN 12/25 AND MELOXICAM 15 MG TABLET, WRITTEN RE NOT BEING TAKEN RIGHT NOW.
[2023-01-22] MEDS: HYDROmorphone 1 mg/mL INJ 1 mL IVP (11:40)
[2023-01-22] MEDS: sodium chloride 0.9% 1,000 ML 125 ML IV ×2 (16:04→23:56)
--- NOTE | 2023-01-22 16:16 | PM.HP ---
Providers/Chief Complaint Admitting Physician: José Miguel Blanchard DO Primary Care Provider: Kasey Naqvi DO Chief Complaint: cp History of Present Illness Oralia Moralez is a 37 year old female who presented to the hospital with 1 day history of right upper quadrant abdominal pain. The pain is sharp and intermittent. She has been getting this pain off and on for the last several months the pain radiates to her back. Palpation and eating makes the pain worse. Nothing makes pain better. Importantly she just had a CABG x 3, 3 months ago which was preceded by a myocardial infarction 1 month before that. She has leukocytosis and ultrasound showed gallbladder wall thickening. Review of Systems General: Reports: 10 or more systems reviewed and unremarkable except in HPI and below Medications/Allergies Home Medications Medication Instructions Recorded Confirmed Last Taken Type blood sugar diagnostic (OneTouch #400 ea 07/12/22 01/22/23 Unknown Rx Ultra Test strips) blood-glucose meter (OneTouch #1 ea 07/12/22 01/22/23 Unknown Rx Ultra2 Meter kit) lancets (MercatusTouch UltraSoft #200 ea 07/12/22 01/22/23 Unknown Rx Lancets) clopidogrel 75 mg tablet 75 mg PO DAILY 30 days #30 tabs 08/07/22 01/22/23 01/20/23 Rx nitroglycerin 0.4 mg sublingual 0.4 mg sublingual Q5M PRN chest 09/11/22 01/22/23 Unknown Rx tablet (Nitrostat) pain #25 tabs carvedilol 6.25 mg tablet 6.25 mg PO BID #180 tabs 11/13/22 01/22/23 01/20/23 Rx spironolactone 25 mg tablet 25 mg PO DAILY #90 tabs 11/13/22 01/22/23 01/20/23 Rx blood-glucose meter,continuous #1 ea 11/19/22 01/22/23 Unknown Rx (Dexcom G7 Strategic Client Executive) blood-glucose sensor (Dexcom G7 #6 ea 11/19/22 01/22/23 Unknown Rx Sensor device) insulin aspart U-100 100 unit/mL See Rx Instructions .Route 11/27/22 01/22/23 01/20/23 Rx (3 mL) subcutaneous pen (Novolog .COMPLEX #30 mL FlexPen U-100 Insulin aspart) insulin glargine 100 unit/mL (3 40 unit (0.4 mL) SUBCUT DAILY 60 11/29/22 01/22/23 01/20/23 Rx mL) subcutaneous pen (Lantus days #15 mL Solostar U-100 Insulin) pen needle, diabetic 31 gauge x #200 ea 12/25/22 01/22/23 Unknown Rx 5/16 (BD Ultra-Fine Short Pen Needle) aspirin 81 mg tablet,delayed 81 mg PO DAILY 01/11/23 01/22/23 01/20/23 History release atorvastatin 80 mg tablet 80 mg PO DAILY #90 tabs 01/11/23 01/22/23 01/20/23 Rx buspirone 10 mg tablet 10 mg PO TID 01/22/23 01/22/23 Unknown History empagliflozin 10 mg tablet 10 mg PO .IN THE MORNING 01/22/23 01/22/23 01/20/23 History (Jardiance) meloxicam 15 mg tablet 15 mg PO DAILY 01/22/23 01/22/23 Unknown History Allergies Allergy/AdvReac Type Severity Reaction Status Date / Time No Known Allergies Allergy Verified 01/22/23 00:51 PFSH Acute PFSH: Medical History Abnormal cardiovascular stress test Bed bug bite CAD (coronary artery disease) delivery delivered Chest pain Diabetes type 2, uncontrolled Family history of early CAD Family history of premature CAD High cholesterol Hypercholesteremia Hypertension Nicotine dependence, cigarettes, with unspecified nicotine-induced disorders Osteoarthritis of left knee STEMI (ST elevation myocardial infarction) Surgical History (Updated 01/23/23 @ 10:47 by José Miguel Blanchard DO) H/O tubal ligation History of delivery x 2 Hx of CABG Family History Father Diabetes Heart disease Mother Diabetes COPD (chronic obstructive pulmonary disease) Emphysema lung Heart disease Kidney failure Arthritis Social History Smoking and tobacco status: current every day smoker Quit status (tobacco): not considering quitting Second hand smoke exposure: No Smoking risk assessment/counseling performed?: Yes Desire information about alcohol rehabilitation?: No Counseling given: No Substance/Drug Use: never Desire information about substance/drug rehabilitation?: No Counseling given: No Adopted: No Caregiver/support person: No Lives independently: Yes Housing: House Marital status: Number of children: 2 Highest education level completed: 9th Grade service: No Female Reproductive History: Date of last menstrual period: 12/20/22 Vitals/I&O/Wt Last Vital Signs Temp 97.6 F 01/22/23 15:29 Pulse 76 01/22/23 15:29 Resp 16 01/22/23 15:29 BP 120/83 01/22/23 15:29 Pulse Ox 94 01/22/23 15:29 O2 Del Method Room Air 01/22/23 15:29 01/22/23 01/22/23 01/22/23 06:59 14:59 22:59 Intake Total 100 / 100 Balance 100 / 100 Weight last 48 hrs Weight 220 lb Physical Exam Narrative: General : Patient is well developed , no acute distress, oriented x3 Head : Normal cephalic, a-traumatic. Ears : Pinnae and external canal are normal. Hearing is normal. Eyes : PERRLA, Sclera and injection are normal. No conjunctival discharge. Nose : Mucous membranes are without erythema. Throat : buccal mucosa is normal, gums are without significant recession or hypertrophy. Lungs : Equal chest rise bilaterally, no use of accessory muscles, trachea is midline. Cor : Rate and rhythm are normal. Abdomen : Soft, ND, mild right upper quadrant tenderness, negative Pa sign, no g/r/m Extremities : No edema, no cyanosis or clubbing, dorsalis pedis pulses are present bilaterally, non-tender to palpation of calves. Upper extremities are normal bilaterally. Back : non-tender to palpation, no CVA tenderness. Neuro : CN II - XII intact, Upper and lower extremities have equal and full strength Data 01/23/23 05:15 01/23/23 05:15 A&P Assessment and plan (1) Acute cholecystitis: (2) Hx of CABG: Plan Due to her recent myocardial infarction followed by a triple bypass, we will try to treat her conservatively with antibiotics. If she responds she will go home on a 2-week course of antibiotics and will plan for an elective laparoscopic cholecystectomy next year Attestations Medical Necessity Statement*: Patient requires at least 1 night in the hospital for IV antibiotics and conservative management of acute cholecystitis Coding Level of Care Code 75736 Diagnoses Acute cholecystitis K81.0 Hx of CABG Z95.1
[2023-01-22 17:59] LABS: Glucose Point of Care 195 mg/dL (70-110)
[2023-01-22] MEDS: insulin lispro 100 unit/1 mL SUBCUT ×2 (18:22→20:44)
[2023-01-22] MEDS: carvedilol 6.25 mg Tablet PO (18:22)
[2023-01-22 20:35] LABS: Glucose Point of Care 198 mg/dL (70-110)
[2023-01-22] MEDS: BuSPIRONE 10 mg Tablet PO (20:43)
[2023-01-22] MEDS: HYDROcodone-acetaminophen 7.5-325 mg Tablet 1 TAB PO (21:27)
[2023-01-23] VITALS (7 sets, daily range): BP systolic 102–124; BP diastolic 65–79; PULSE 60–79; RESP 14–20; TEMP 36.4–36.9; O2SAT 95–97
[2023-01-23 05:57] LABS: Basophils % 0.3 %; Eosinophils # 0.1 10^3/uL (0.0-0.8); Hematocrit 43.5 % (37.0-47.0); Hemoglobin 13.5 g/dL (11.5-15.3); Lymphocytes # 2.1 10^3/uL (0.8-4.8); Lymphocytes % 16.1 %; Mean Corpuscular Hemoglobin 28.1 pg (28.0-34.0); Mean Corpuscular Volume 90.4 fl (81-99); Mean Platelet Volume 9.3 fL (7.4-10.4); Neutrophils # 9.57 10^3/uL (1.8-7.7); Neutrophils % 74.2 %; Nucleated Red Blood Cells % 0 %; Platelet Count 299 10^3/cmm (130-400); Red Blood Count 4.81 10^6/uL (4.1-5.3); Red Cell Distribution Width 12.9 % (12.1-15.1); White Blood Count 12.9 10^3/uL (4.0-10.0)
[2023-01-23] MEDS: piperacillin-tazobactam 3.375 GM in sodium chloride 0.9% (plus) 50 ML IV (06:05)
[2023-01-23] MEDS: HYDROcodone-acetaminophen 7.5-325 mg Tablet 1 TAB PO ×2 (06:07→11:56)
[2023-01-23 06:13] LABS: Alanine Aminotransferase 16 U/L (0-33); Albumin Level 3.8 g/dL (3.5-5.2); Alkaline Phosphatase 64 U/L (35-105); Blood Urea Nitrogen 10 mg/dL (6-20); Calcium 8.4 mg/dL (8.5-10.5); Carbon Dioxide 21 mmol/L (22-29); Chloride 103 mmol/L (98-107); Globulin 2.3 g/dL (1.3-4.6); Glomerular Filtration Rate 253.2 mL/min (90-130); Glucose 170 mg/dL (65-115); Osmolality Calculated 283 mOsm/kg (285-295); Sodium 135 mmol/L (136-145); Total Bilirubin 0.3 mg/dL (0.15-1.2); Total Protein 6.1 g/dL (6.6-8.7)
[2023-01-23 06:15] LABS: Anion Gap 15.4 (5-19); Aspartate Amino Transferase 13 U/L (0-32); Potassium 4.4 mmol/L (3.5-5.1)
[2023-01-23 06:26] LABS: Glucose Point of Care 162 mg/dL (70-110)
[2023-01-23] MEDS: insulin lispro 100 unit/1 mL SUBCUT ×2 (07:47→11:56)
[2023-01-23] MEDS: sodium chloride 0.9% 1,000 ML 125 ML IV (08:48)
[2023-01-23] MEDS: aspirin 81 mg EC Tablet PO (08:48)
[2023-01-23] MEDS: carvedilol 6.25 mg Tablet PO (08:49)
[2023-01-23] MEDS: BuSPIRONE 10 mg Tablet PO (08:49)
[2023-01-23] MEDS: spironolactone 25 mg Tablet PO (08:49)
[2023-01-23] MEDS: atorvastatin 40 mg Tablet 80 MG PO (08:49)
[2023-01-23] MEDS: insulin glargine 100 units/1 mL 40 UNIT SUBCUT (09:13)
--- NOTE | 2023-01-23 10:48 | P.DS_ITS ---
Discharge Providers Date of Admission: 01/22/23 05:31 Date of Discharge: January 23, 2023 Attending Provider at Admission: José Miguel Blanchard DO Attending Provider at Discharge: José Miguel Blanchard DO Primary Care Provider: Kasey Naqvi DO Diagnoses at Discharge Discharge Diagnosis (1) Acute cholecystitis: Status: Acute (2) Hx of CABG: Status: Acute Reason for Visit Reason for Visit: cp Hospital Course Hospital Course This very pleasant 37-year-old female with a history of CABG x 3 just 3 months ago which was proceeded by a myocardial infarction 1 month prior to that. She came to the hospital with 1 day history of abdominal pain and was diagnosed with acute cholecystitis. She was successfully treated conservatively with antibiotics and discharged home with a course of antibiotics and follow-up Physical Exam Narrative: General : Patient is well developed , no acute distress, oriented x3 Head : Normal cephalic, a-traumatic. Ears : Pinnae and external canal are normal. Hearing is normal. Eyes : PERRLA, Sclera and injection are normal. No conjunctival discharge. Nose : Mucous membranes are without erythema. Throat : buccal mucosa is normal, gums are without significant recession or hypertrophy. Lungs : Equal chest rise bilaterally, no use of accessory muscles, trachea is midline. Cor : Rate and rhythm are normal. Abdomen : Soft, ND, mild right upper quadrant tenderness, negative Pa's, no g/r/m Extremities : No edema, no cyanosis or clubbing, dorsalis pedis pulses are present bilaterally, non-tender to palpation of calves. Upper extremities are normal bilaterally. Back : non-tender to palpation, no CVA tenderness. Neuro : CN II - XII intact, Upper and lower extremities have equal and full strength Discharge Data Studies Completed and Pending Completed Studies During Hospitalization Category Date Time Status US abdomen limited [id number] Stat Ultrasound 01/22/23 01:38 Completed Pending at discharge Category Date Time Status CBC Auto Diff [Complete Blood Count w/Auto] AM LABS Lab 01/24/23 04:00 Ordered CBC Auto Diff [Complete Blood Count w/Auto] AM LABS Lab 01/25/23 04:00 Ordered CMP [Comprehensive Metabolic Panel] AM LABS Lab 01/24/23 04:00 Ordered CMP [Comprehensive Metabolic Panel] AM LABS Lab 01/25/23 04:00 Ordered Magnesium AM LABS Lab 01/24/23 04:00 Ordered Magnesium AM LABS Lab 01/25/23 04:00 Ordered Radiology Impressions Abdomen Ultrasound 01/22/23 01:38 IMPRESSION: 1. 2 large gallstones. Mild asymmetric gallbladder wall thickening. There is a positive sonographic Pa's sign per report from the phlebotomy technologist. Findings raise suspicion for cholecystitis. 2. Mild hepatomegaly Laboratory Results WBC 12.9 10^3/uL (4.0-10.0) H 01/23/23 05:15 RBC 4.81 10^6/uL (4.1-5.3) 01/23/23 05:15 Hgb 13.5 g/dL (11.5-15.3) 01/23/23 05:15 Hct 43.5 % (37.0-47.0) 01/23/23 05:15 MCV 90.4 fl (81-99) 01/23/23 05:15 MCH 28.1 pg (28.0-34.0) 01/23/23 05:15 MCHC 31.0 g/dL (30.0-36.0) 01/23/23 05:15 RDW 12.9 % (12.1-15.1) 01/23/23 05:15 Plt Count 299 10^3/cmm (130-400) 01/23/23 05:15 MPV 9.3 fL (7.4-10.4) 01/23/23 05:15 Neut % (Auto) 74.2 % 01/23/23 05:15 Lymph % (Auto) 16.1 % 01/23/23 05:15 [place] % (Auto) 8.0 % 01/23/23 05:15 Eos % (Auto) 1.0 % 01/23/23 05:15 Baso % (Auto) 0.3 % 01/23/23 05:15 Neut # (Auto) 9.57 10^3/uL (1.8-7.7) H 01/23/23 05:15 Lymph # (Auto) 2.1 10^3/uL (0.8-4.8) 01/23/23 05:15 [place] # (Auto) 1.0 10^3/uL (0.2-0.9) H 01/23/23 05:15 Eos # (Auto) 0.1 10^3/uL (0.0-0.8) 01/23/23 05:15 Baso # (Auto) 0.0 10^3/uL (0.0-0.1) 01/23/23 05:15 Nucleated RBC % (auto) 0 % 01/23/23 05:15 Nucleated RBCs # 0.0 /100WBC 01/23/23 05:15 Sodium 135 mmol/L (136-145) L 01/23/23 05:15 Potassium 4.4 mmol/L (3.5-5.1) 01/23/23 05:15 Chloride 103 mmol/L (98-107) 01/23/23 05:15 Carbon Dioxide 21 mmol/L (22-29) L 01/23/23 05:15 Anion Gap 15.4 (5-19) 01/23/23 05:15 BUN 10 mg/dL (6-20) 01/23/23 05:15 Creatinine 0.3 mg/dL (0.5-0.9) L 01/23/23 05:15 GFR Calculation 253.2 mL/min (90-130) H 01/23/23 05:15 Glucose 170 mg/dL (65-115) H 01/23/23 05:15 POC Glucose 162 mg/dL (70-110) H 01/23/23 06:23 Calculated Osmolality 283 mOsm/kg (285-295) L 01/23/23 05:15 Calcium 8.4 mg/dL (8.5-10.5) L 01/23/23 05:15 Magnesium 2.0 mg/dL (1.7-2.3) 01/23/23 05:15 Total Bilirubin 0.3 mg/dL (0.15-1.2) 01/23/23 05:15 AST 13 U/L (0-32) 01/23/23 05:15 ALT 16 U/L (0-33) 01/23/23 05:15 Alkaline Phosphatase 64 U/L (35-105) 01/23/23 05:15 Troponin T Baseline 9 ng/L (0-10) 01/22/23 02:09 NT-Pro-B Natriuret Pep 365 pg/mL (0-125) H 01/22/23 03:25 Total Protein 6.1 g/dL (6.6-8.7) L 01/23/23 05:15 Albumin 3.8 g/dL (3.5-5.2) 01/23/23 05:15 Globulin 2.3 g/dL (1.3-4.6) 01/23/23 05:15 Lipase 17 U/L (13-60) 01/22/23 03:25 Urine Color Light yellow (Yellow) 01/22/23 02:32 Urine Appearance Clear (CLEAR) 01/22/23 02:32 Urine pH 8 (5-7) H 01/22/23 02:32 Ur Specific [place] 1.010 (1.005-1.030) 01/22/23 02:32 Urine Protein Neg (Negative) 01/22/23 02:32 Urine Glucose (UA) 4+ (Normal) H 01/22/23 02:32 Urine Ketones 1+ (Negative) H 01/22/23 02:32 Urine Blood Neg (Negative) 01/22/23 02:32 Urine Nitrate Negative (Negative) 01/22/23 02:32 Urine Bilirubin Neg (Negative) 01/22/23 02:32 Prot Sulfosalicylic Acd Negative (Negative) 01/22/23 02:32 Urine Urobilinogen Neg mg/dL (Negative) 01/22/23 02:32 Ur Leukocyte Esterase Negative (Negative) 01/22/23 02:32 Vitals Last Vital Signs Temp 98.4 F 01/23/23 07:15 Pulse 70 01/23/23 07:15 Resp 20 H 01/23/23 07:15 BP 120/78 01/23/23 07:15 Pulse Ox 95 01/23/23 07:15 O2 Del Method Room Air 01/23/23 07:15 Discharge Plan Discharge Patient Disposition: Home Condition: Stable Prescriptions: New amoxicillin-pot clavulanate 875-125 mg tablet 1 tab PO BID Qty: 26 0RF hydrocodone-acetaminophen 10-325 mg tablet 1 tab PO Q6H PRN (Reason: pain) Qty: 20 0RF Rx Instructions: May take half of a tab at a time Continued nitroglycerin [Nitrostat] 0.4 mg tablet, sublingual 0.4 mg sublingual Q5M PRN (Reason: chest pain) Qty: 25 1RF Rx Instructions: do not exceed 3 doses per episode (DME) Dexcom G7 Sensor Device See Rx Instructions .ROUTE .MEDSUPPLY Qty: 6 0RF Rx Instructions: Change every 10days (DME) Dexcom G7 Senior Graphic Designer Misc See Rx Instructions .Route Qty: 1 0RF Rx Instructions: As directed insulin glargine [Lantus Solostar U-100 Insulin] 100 unit/mL (3 mL) insulin pen 40 unit SUBCUT DAILY 60 Days Qty: 15 0RF aspirin 81 mg tablet,delayed release (DR/EC) 81 mg PO DAILY atorvastatin 80 mg tablet 80 mg PO DAILY Qty: 90 3RF (DME) blood-glucose meter [OneTouch Ultra2 Meter] Kit See Rx Instructions .Route Qty: 1 0RF Rx Instructions: check sugar 4-6 times a day (DME) OneTouch Ultra Test Strip See Rx Instructions .Route Qty: 400 1RF Rx Instructions: checck sugar 4-6 times (DME) lancets [OneTouch UltraSoft Lancets] Misc See Rx Instructions .Route Qty: 200 1RF Rx Instructions: As directed clopidogrel 75 mg tablet 75 mg PO DAILY 30 Days Qty: 30 5RF carvedilol 6.25 mg tablet 6.25 mg PO BID Qty: 180 0RF spironolactone 25 mg tablet 25 mg PO DAILY Qty: 90 0RF Novolog FlexPen U-100 Insulin 100 unit/mL (3 mL) insulin pen See Rx Instructions .ROUTE .COMPLEX Qty: 30 0RF Dose Instruction: INJECT DIRECTED SUBCUTANEOUSLY 3 TIMES DAILY AFTER MEALS BASED ON SLIDING SCALE, MAX 40 UNITS/DAY Rx Instructions: INJECT DIRECTED SUBCUTANEOUSLY 3 TIMES DAILY AFTER MEALS BASED ON SLIDING SCALE, MAX 40 UNITS/DAY (DME) pen needle, diabetic [BD Ultra-Fine Short Pen Needle] 31 gauge x 5/16 needle See Rx Instructions .ROUTE .MEDSUPPLY Qty: 200 0RF Rx Instructions: As directed meloxicam 15 mg tablet 15 mg PO DAILY buspirone 10 mg tablet 10 mg PO TID Jardiance 10 mg tablet 10 mg PO .IN THE MORNING Discharge Orders: Discharge Order (Routine); Ordered 01/23/23 Ordered By: José Miguel Blanchard Referrals: Kasey Naqvi DO [Primary Care Provider] - José Miguel Blanchard DO [Physician] - 2 weeks Discharge Diet: Advance as tolerated Discharge Activity: Resume usual activity Patient Instructions: Opioid Safety Discharge Attestations Time Spent in Discharge Care*: less than 30 min Quality Metrics Clinical Quality Measures [ No reported AMI, CVA or VTE this stay] Coding Level of Care Code Acute Code for Chg Fwd Diagnoses Acute cholecystitis K81.0 Hx of CABG Z95.1
[2023-01-23 11:31] LABS: Glucose Point of Care 285 mg/dL (70-110)
== END 2023-01-23 12:41 | disposition home or self-care (01) | DRG 446 ==
LOC: ER 04:54 → MEDSURG 05:32
PROVIDERS: Nurse Practitioner; Admitting Provider Surgery; Emergency Provider Internal Medicine; PCP Family Medicine; Visit Provider Surgery
DX: K80.00 Calculus of gallbladder with acute cholecystitis without obstruction (principal); Z95.1 Presence of aortocoronary bypass graft; I25.10 Atherosclerotic heart disease of native coronary artery without angina pectoris; I10 Essential (primary) hypertension; F17.210 Nicotine dependence, cigarettes, uncomplicated; E11.9 Type 2 diabetes mellitus without complications; E78.00 Pure hypercholesterolemia, unspecified; Z79.02 Long term (current) use of antithrombotics/antiplatelets; Z79.82 Long term (current) use of aspirin; Z79.4 Long term (current) use of insulin; Z79.84 Long term (current) use of oral hypoglycemic drugs
CPT/HCPCS: 12345; 36415; 36416; 76705; 80053; 81003; 82962; 83690; 83735; 83880; 84484; 85025; 96365; 96367; 96372; 96375; 96376; 99285; J0692; J1170; J1815; J2270; J2405; J2543; J7030

== ENCOUNTER → 2023-02-06 12:48 | Outpatient (BNVA) | payer MEDICAID, SELFPAY | PROVIDERS: PCP Family Medicine; Visit Provider Surgery | DX: K81.9 Cholecystitis, unspecified (principal) | CPT/HCPCS: 99203 ==

== ENCOUNTER 2023-03-18 06:32 | Day surgery (SDC) | payer MEDICAID, SELFPAY ==
[2023-03-18 06:35] VITALS: BP 118/75; PULSE 83; RESP 16; TEMP 36.1; O2SAT 98
[2023-03-18] MEDS: sodium chloride 0.9% 1,000 ML 30 ML IV (06:55)
[2023-03-18 08:49] LABS: Glucose Point of Care 215 mg/dL (70-110)
== END 2023-03-18 07:10 | disposition home or self-care (01) ==
LOC: OR 06:33
PROVIDERS: PCP Family Medicine; Visit Provider Surgery
DX: Z01.818 Encounter for other preprocedural examination (principal)
CPT/HCPCS: 36416; 82962; J7030

== ENCOUNTER → 2023-04-23 09:06 | Outpatient (BNVA) | payer MEDICAID, SELFPAY | PROVIDERS: PCP Family Medicine; Visit Provider Family Medicine | DX: R60.0 Localized edema (principal); N63.23 Unspecified lump in the left breast, lower outer quadrant; N63.20 Unspecified lump in the left breast, unspecified quadrant | CPT/HCPCS: 80048 ==

== ENCOUNTER 2023-05-10 02:19 | Emergency (ER) | payer MEDICAID, SELFPAY ==
[2023-05-10 02:24] VITALS: BP 172/85; PULSE 97; RESP 20; TEMP 36.4; O2SAT 93; BMI 29.0
--- NOTE | 2023-05-10 02:28 | XRR_ITS ---
PROCEDURE INFORMATION: Exam: XR Chest Exam date and time: 05/10/2023 2:32 AM Age: 37 years old Clinical indication: Pain; Chest pressure; Prior surgery; Surgery date: 6+ months; Surgery type: Cabg; Patient HX: C/O chest discomfort. Hypertensive. ; Additional info: Cp TECHNIQUE: Imaging protocol: Radiologic exam of the chest. Views: 1 view. COMPARISON: CR (CHEST, ) 11/13/2022 10:12 PM FINDINGS: Lungs: Unremarkable. No consolidation. Pleural spaces: Unremarkable. No pleural effusion. No pneumothorax. Heart/Mediastinum: Stable surgical changes in the mediastinum. Bones/joints: Unremarkable. XR/XR chest 1V portable [id number] IMPRESSION: No acute cardiopulmonary abnormality.
--- NOTE | 2023-05-10 02:28 | USR_ITS ---
PROCEDURE INFORMATION: Exam: US Abdomen, Limited; Right Upper Quadrant Exam date and time: 05/10/2023 2:58 AM Age: 37 years old Clinical indication: Abdominal pain; Other: Ruq; Patient HX: Dx with gallstones 01/22/23 here. Nothing done in the interim. ; Additional info: Ruq pain TECHNIQUE: Imaging protocol: Real time ultrasound of the abdomen with image documentation. Limited exam focused on the right upper quadrant. COMPARISON: US abdomen limited [id number] 01/22/2023 2:15 AM FINDINGS: Liver: There is diffuse fatty infiltration throughout the liver. No masses. The liver is enlarged, measuring 19.7 cm. Gallbladder: Gallstones and probable sludge with wall thickening to 4 mm and a positive sonographic Pa sign consistent with cholecystitis. Biliary ducts: Normal. No stones. No dilation. Pancreas: Visualized pancreas is unremarkable. Right kidney: Normal. No mass. No hydronephrosis. US/US gall bladder [id number] IMPRESSION: Gallstones and sludge with acute cholecystitis. Fatty hepatomegaly.
--- NOTE | 2023-05-10 02:36 | W.ED.ABDPA2 ---
HPI - Abdominal Pain General: Chief Complaint: Abdominal Pain Stated Complaint: heart burn, abdomen pain,n/v Time Seen by Provider: 05/10/23 02:21 Source: patient Mode of arrival: ambulatory Limitations: no limitations History of Present Illness: 37-year-old female states she has been having abdominal pain throughout the day. States that epigastric along with right upper quadrant states she feels like she has heartburn as well. States the pain is sharp in nature has been constant rates it a 3 out of 10 she had some nausea as well. She does have a history of coronary artery disease had a CABG in the past she states that the pain that she has in her chest feels more like heartburn denies any dyspnea denies any nausea. Associated Symptoms: Reports nausea and vomiting; Denies chills, diarrhea, dysuria and fever(s) Review of Systems Const: Denies: fever(s), chills, body aches or change in appetite ENMT: Denies: throat pain or dental pain Card: Denies: chest pain Resp: Denies: dyspnea GI: Reports: abdominal pain, nausea and vomiting; Denies: diarrhea : Denies: dysuria Musc: Denies: neck pain or back pain Skin/Breast: Denies: rash Neuro: Denies: headache(s) PFSH ED PFSH: Medical History Abnormal cardiovascular stress test Bed bug bite CAD (coronary artery disease) delivery delivered Chest pain Diabetes type 2, uncontrolled Family history of early CAD Family history of premature CAD High cholesterol Hypercholesteremia Hypertension Nicotine dependence, cigarettes, with unspecified nicotine-induced disorders Osteoarthritis of left knee STEMI (ST elevation myocardial infarction) Surgical History H/O tubal ligation History of delivery x 2 Hx of CABG Family History Father Diabetes Heart disease Mother Diabetes COPD (chronic obstructive pulmonary disease) Emphysema lung Heart disease Kidney failure Arthritis Social History Smoking and tobacco/nicotine status: current every day tobacco/nicotine user Quit status (tobacco/nicotine): not considering quitting Second hand smoke exposure: No Substance/Drug Use: never Adopted: No Caregiver/support person: No Lives independently: Yes Housing: House Marital status: Number of children: 2 Highest education level completed: 9th Grade service: No Physical Exam Const: COMMON NORMALS: no acute distress, patient oriented x3 and healthy appearing HENMT: COMMON NORMALS: normocephalic and atraumatic HEAD & SCALP: normocephalic and atraumatic Eye: COMMON NORMALS: Equal, round and reactive pupils present and EOMs intact bilaterally PUPIL: Yes Equal, round and reactive pupils present Neck/C-Spine: COMMON NORMALS: full ROM and supple Chest: COMMONS NORMALS: normal inspection of the chest and normal palpation of entire chest wall Resp: COMMON NORMALS: normal respiratory effort, No retractions, No use of accessory muscles and clear to auscultation bilaterally AUSCULTATION: clear to auscultation bilaterally Cardio: COMMON NORMALS: regular rate, regular rhythm and No murmurs present (Cardio) RATE: regular rate RHYTHM: regular rhythm GI: COMMON NORMALS: Normal to inspection, nondistended, normoactive bowel sounds present, Soft to palpation, non-tender and no masses PALPATION: Yes Soft to palpation Extremity: COMMON NORMALS: normal to inspection and full ROM Neuro: COMMON NORMALS: patient oriented x3, moves all extremities and no focal motor deficits Psych: COMMON NORMALS: mental status grossly normal, Normal thought process present and cooperative THOUGHT PROCESS: Normal thought process present Skin: COMMON NORMALS: no rashes or lesions noted and no wounds GENERAL SKIN EXAM: no rashes or lesions noted Course Vital Signs: Vital signs: Vital Signs Temperature 97.6 F 05/10/23 02:24 Pulse Rate 97 05/10/23 02:24 Respiratory Rate 20 H 05/10/23 02:24 Blood Pressure 172/85 05/10/23 02:24 Pulse Oximetry 93 05/10/23 02:24 MDM - Abdominal Pain Medical Decision Making Patient presents with abdominal pain is gone for 2 days patient's white count here is normal she is afebrile. Ultrasound did show slightly thickened gallbladder wall with stones. Repeat exam at discharge is benign she has no right upper quadrant tenderness. I spoke to Dr. Blanchard informed him of patient's ultrasound results he has seen her in the past he recommended Augmentin for 10 days and to follow-up with him outpatient I did inform her if she spikes a fever or has worsening pain she is return to the ER she understands agrees to plan. Medical Records I reviewed the patient's medical records. Lab Data I reviewed the patient's lab results. 05/10/23 02:53 05/10/23 02:53 Labs/Radiology: Radiology Impressions Chest X-Ray 05/10/23 02:28 IMPRESSION: No acute cardiopulmonary abnormality. Gallbladder Ultrasound 05/10/23 02:28 IMPRESSION: Gallstones and sludge with acute cholecystitis. Fatty hepatomegaly. Laboratory Results WBC 9.49 10^3/uL (3.29-11.43) 05/10/23 02:53 RBC 4.87 10^6/uL (3.85-5.65) 05/10/23 02:53 Hgb 14.00 g/dL (11.27-16.99) 05/10/23 02:53 Hct 43.1 % (36-47) 05/10/23 02:53 MCV 88.5 fl (85-98) 05/10/23 02:53 MCH 28.7 pg (27-33) 05/10/23 02:53 MCHC 32.5 g/dL (30-55) 05/10/23 02:53 RDW 12.5 % (12.1-15.1) 05/10/23 02:53 Plt Count 277 10^3/cmm (157-399) 05/10/23 02:53 MPV 9.4 fL (7.4-10.4) 05/10/23 02:53 Neut % (Auto) 77.0 % 05/10/23 02:53 Lymph % (Auto) 14.0 % 05/10/23 02:53 [place] % (Auto) 5.9 % 05/10/23 02:53 Eos % (Auto) 2.2 % 05/10/23 02:53 Baso % (Auto) 0.6 % 05/10/23 02:53 Neut # (Auto) 7.30 10^3/uL (1.8-7.7) 05/10/23 02:53 Lymph # (Auto) 1.3 10^3/uL (0.8-4.8) 05/10/23 02:53 [place] # (Auto) 0.6 10^3/uL (0.2-0.9) 05/10/23 02:53 Eos # (Auto) 0.2 10^3/uL (0.0-0.8) 05/10/23 02:53 Baso # (Auto) 0.1 10^3/uL (0.0-0.1) 05/10/23 02:53 Nucleated RBC % (auto) 0 % 05/10/23 02:53 Nucleated RBCs # 0.0 /100WBC 05/10/23 02:53 Sodium 139 mmol/L (136-145) 05/10/23 02:53 Potassium 4.1 mmol/L (3.5-5.1) 05/10/23 02:53 Chloride 102 mmol/L (98-107) 05/10/23 02:53 Carbon Dioxide 25 mmol/L (22-29) 05/10/23 02:53 Anion Gap 16.1 (5-19) 05/10/23 02:53 BUN 13 mg/dL (6-20) 05/10/23 02:53 Creatinine 0.5 mg/dL (0.5-0.9) 05/10/23 02:53 GFR Calculation 140.4 mL/min (90-130) H 05/10/23 02:53 Glucose 241 mg/dL (65-115) H 05/10/23 02:53 Calculated Osmolality 296 mOsm/kg (285-295) H 05/10/23 02:53 Calcium 8.9 mg/dL (8.5-10.5) 05/10/23 02:53 Total Bilirubin 0.2 mg/dL (0.15-1.2) 05/10/23 02:53 AST 15 U/L (0-32) 05/10/23 02:53 ALT 27 U/L (0-33) 05/10/23 02:53 Alkaline Phosphatase 74 U/L (35-105) 05/10/23 02:53 Troponin T Baseline < 6 ng/L (0-10) 05/10/23 02:53 Total Protein 7.2 g/dL (6.6-8.7) 05/10/23 02:53 Albumin 4.1 g/dL (3.5-5.2) 05/10/23 02:53 Globulin 3.1 g/dL (1.3-4.6) 05/10/23 02:53 Lipase 22 U/L (13-60) 05/10/23 02:53 HCG, Qual Negative (Negative) 05/10/23 02:53 All radiology interpretation(s) finalized by discharge EKG Data EKG 1: I personally reviewed and interpreted this EKG as follows: EKG interpretation date: 05/10/23 EKG interpretation time: 02:49 Interpretation: sinus tach hr [address] or t wave abnormalities qrs 90 qtc 398 Discharge Plan Discharge Patient Disposition: Home Clinical Impression: Cholecystitis Condition: Stable Prescriptions: New hydrocodone-acetaminophen 5-325 mg tablet 1 tab PO Q6H PRN (Reason: pain) Qty: 14 0RF ondansetron 4 mg tablet,disintegrating 4 mg PO Q6H PRN (Reason: nausea and vomiting) Qty: 14 0RF Augmentin 500-125 mg tablet 1 tab PO BID Qty: 20 0RF No Action nitroglycerin [Nitrostat] 0.4 mg tablet, sublingual 0.4 mg sublingual Q5M PRN (Reason: chest pain) Qty: 25 1RF Rx Instructions: do not exceed 3 doses per episode (DME) Dexcom G7 Sensor Device See Rx Instructions .ROUTE .MEDSUPPLY Qty: 6 0RF Rx Instructions: Change every 10days (DME) Dexcom G7 Mixer Operator Hot Metal Misc See Rx Instructions .Route Qty: 1 0RF Rx Instructions: As directed aspirin 81 mg tablet,delayed release (DR/EC) 81 mg PO DAILY atorvastatin 80 mg tablet 80 mg PO DAILY Qty: 90 3RF (DME) blood-glucose meter [OneTouch Ultra2 Meter] Kit See Rx Instructions .Route Qty: 1 0RF Rx Instructions: check sugar 4-6 times a day (DME) OneTouch Ultra Test Strip See Rx Instructions .Route Qty: 400 1RF Rx Instructions: checck sugar 4-6 times (DME) lancets [OneTouch UltraSoft Lancets] Misc See Rx Instructions .Route Qty: 200 1RF Rx Instructions: As directed carvedilol 6.25 mg tablet 6.25 mg PO BID Qty: 180 0RF (DME) pen needle, diabetic [BD Ultra-Fine Short Pen Needle] 31 gauge x 5/16 needle See Rx Instructions .ROUTE .MEDSUPPLY Qty: 200 0RF Rx Instructions: As directed insulin glargine [Lantus Solostar U-100 Insulin] 100 unit/mL (3 mL) insulin pen See Rx Instructions .ROUTE .COMPLEX Qty: 15 0RF Dose Instruction: INJECT 40 UNITS SUBCUTANEOUSLY DAILY FOR 60 DAYS Rx Instructions: INJECT 40 UNITS SUBCUTANEOUSLY DAILY FOR 60 DAYS clopidogrel 75 mg tablet See Rx Instructions .ROUTE .COMPLEX Qty: 90 0RF Dose Instruction: TAKE 1 TABLET BY MOUTH EVERY DAY Rx Instructions: TAKE 1 TABLET BY MOUTH EVERY DAY Jardiance 10 mg tablet See Rx Instructions .ROUTE .COMPLEX Qty: 90 1RF Dose Instruction: TAKE 1 TABLET BY MOUTH IN THE MORNING Rx Instructions: TAKE 1 TABLET BY MOUTH IN THE MORNING spironolactone 50 mg tablet See Rx Instructions .ROUTE .COMPLEX Qty: 90 0RF Dose Instruction: TAKE 1 TABLET BY MOUTH EVERY DAY Rx Instructions: TAKE 1 TABLET BY MOUTH EVERY DAY Novolog FlexPen U-100 Insulin 100 unit/mL (3 mL) insulin pen See Rx Instructions .ROUTE .COMPLEX Qty: 30 0RF Dose Instruction: INJECT DIRECTED SUBCUTANEOUSLY 3 TIMES DAILY AFTER MEALS BASED ON SLIDING SCALE, MAX 40 UNITS/DAY Rx Instructions: INJECT DIRECTED SUBCUTANEOUSLY 3 TIMES DAILY AFTER MEALS BASED ON SLIDING SCALE, MAX 40 UNITS/DAY meloxicam 15 mg tablet 15 mg PO DAILY Discharge Orders: Discharge ED (Routine); Ordered 05/10/23 Ordered By: Caro Cheatham Referrals: José Miguel Blanchard DO [Physician] - 1-3 days Kasey Naqvi DO [Primary Care Provider] - Discharge Diet: Advance as tolerated Discharge Activity: Resume usual activity Patient Instructions: Cholecystitis (ED), Opioid Safety Coding Level of Care Code ED [employer]
[2023-05-10] MEDS: lidocaine 2% viscous 15 ML, aluminum-mag hydrox-simethicon 30 ML, sucralfate oral liq 1 GM PO (02:41)
--- NOTE | 2023-05-10 02:49 | ECG_ITS ---
[facility] Test Date: 2023-05-10 Pat Name: Oralia Moralez Department: Room: Gender: Female News Correspondent: : 1985 Requested By: Caro Cheatham Order Number: [id number] Maki MD: Dora Hawk M.D. Measurements Intervals [place] Rate: 100 P: 46 MA: 136 QRS: 52 QRSD: 90 T: 78 QT: 341 QTc: 440 Interpretive Statements SINUS TACHYCARDIA MODERATE ST DEPRESSION [0.05+ mV ST DEPRESSION] Compared to ECG 01/21/2023 21:15:37 ST (T wave) deviation now present Heart rate is rapid Electronically Signed On 05-10-2023 14:01:03 [employer]JOR [employer]SEM[employer] INSPECTOR by Dora Hawk M.D. [id number]
[2023-05-10] MEDS: ondansetron 2 mg/ML SDV 2 mL 4 MG IVP (02:52)
[2023-05-10 03:20] LABS: Basophils # 0.1 10^3/uL (0.0-0.1); Basophils % 0.6 %; Eosinophils # 0.2 10^3/uL (0.0-0.8); Eosinophils % 2.2 %; Hematocrit 43.1 % (36-47); Lymphocytes # 1.3 10^3/uL (0.8-4.8); Mean Corpuscular HGB Conc 32.5 g/dL (30-55); Mean Corpuscular Hemoglobin 28.7 pg (27-33); Mean Corpuscular Volume 88.5 fl (85-98); Mean Platelet Volume 9.4 fL (7.4-10.4); Monocytes # 0.6 10^3/uL (0.2-0.9); Monocytes % 5.9 %; Nucleated Red Blood Cells % 0 %; Platelet Count 277 10^3/cmm (157-399); Red Blood Count 4.87 10^6/uL (3.85-5.65); Red Cell Distribution Width 12.5 % (12.1-15.1); White Blood Count 9.49 10^3/uL (3.29-11.43)
[2023-05-10 03:32] LABS: HCG, Serum Qual Negative (Negative); Troponin(5th) Baseline < 6 ng/L (0-10)
[2023-05-10 03:35] LABS: Alanine Aminotransferase 27 U/L (0-33); Albumin Level 4.1 g/dL (3.5-5.2); Alkaline Phosphatase 74 U/L (35-105); Anion Gap 16.1 (5-19); Aspartate Amino Transferase 15 U/L (0-32); Blood Urea Nitrogen 13 mg/dL (6-20); Calcium 8.9 mg/dL (8.5-10.5); Carbon Dioxide 25 mmol/L (22-29); Chloride 102 mmol/L (98-107); Globulin 3.1 g/dL (1.3-4.6); Glomerular Filtration Rate 140.4 mL/min (90-130); Glucose 241 mg/dL (65-115); Lipase 22 U/L (13-60); Osmolality Calculated 296 mOsm/kg (285-295); Potassium 4.1 mmol/L (3.5-5.1); Sodium 139 mmol/L (136-145); Total Bilirubin 0.2 mg/dL (0.15-1.2); Total Protein 7.2 g/dL (6.6-8.7)
[2023-05-10 05:04] VITALS: BP 141/91; PULSE 117; RESP 16; O2SAT 100
--- NOTE | 2023-05-10 07:31 | DCPLANNER ---
Referral was sent to Dr. Manjarrez office on 05/10/23 at 0732 am. Clinic to contact patient.
== END 2023-05-10 05:13 | disposition home or self-care (01) ==
PROVIDERS: Emergency Provider Emergency Medicine; PCP Family Medicine
DX: K81.9 Cholecystitis, unspecified (principal); Z79.82 Long term (current) use of aspirin; Z79.02 Long term (current) use of antithrombotics/antiplatelets; Z79.4 Long term (current) use of insulin; Z72.0 Tobacco use; I25.10 Atherosclerotic heart disease of native coronary artery without angina pectoris; E11.9 Type 2 diabetes mellitus without complications; I10 Essential (primary) hypertension; I25.2 Old myocardial infarction; Z95.1 Presence of aortocoronary bypass graft
CPT/HCPCS: 71045; 76705; 80053; 83690; 84484; 84703; 85025; 93005; 93010; 96374; 99285; J2405

== ENCOUNTER → 2023-05-21 09:35 | Outpatient (BNVA) | payer MEDICAID, SELFPAY | PROVIDERS: PCP Family Medicine; Visit Provider Surgery | DX: K81.9 Cholecystitis, unspecified (principal) | CPT/HCPCS: 99214 ==

== ENCOUNTER 2023-05-23 08:49 | Outpatient (CLI) | payer MEDICAID, SELFPAY ==
--- NOTE | 2023-05-23 08:57 | US_ITS ---
WS: [id number] BILATERAL 3D TOMOSYNTHESIS DIGITAL DIAGNOSTIC MAMMOGRAPHY WITH CAD CLINICAL INFORMATION: left breast mass at 6:00 HISTORY: LEFT breast nodule COMPARISON: Baseline TECHNIQUE: Bilateral CC, MLO, and ML views. FINDINGS: The breasts are composed of heterogeneous fibroglandular density, which can limit the detection of sm all underlying mass lesions. Palpable marker LEFT breast near the 6 o'clock position. Slightly nodula r dense breast tissue in this area. Ultrasound of this area is pending. RIGHT breast is unremarkable. A few incidental punctate calcifications. Dense breast tissue upper inner RIGHT breast. ULTRASOUND BREAST LEFT TECHNIQUE: Ultrasound left breast focused area of concern. CLINICAL INFORMATION: left breast mass at 6:00 FINDINGS: Ultrasound LEFT breast at the 6 o'clock position in the area of concern. Normal underlying parenchymal tissue. No cystic or solid lesions. No suspicious lesions to target for biopsy. IMPRESSION: US/US breast LT limited* [id number] BI-RADS: 2-Benign FOLLOW UP: Age 42 Recommend annual screening mammography age 42
--- NOTE | 2023-05-23 09:00 | MM_ITS ---
WS: [id number] BILATERAL 3D TOMOSYNTHESIS DIGITAL DIAGNOSTIC MAMMOGRAPHY WITH CAD CLINICAL INFORMATION: left breast mass at 6:00 HISTORY: LEFT breast nodule COMPARISON: Baseline TECHNIQUE: Bilateral CC, MLO, and ML views. FINDINGS: The breasts are composed of heterogeneous fibroglandular density, which can limit the detection of sm all underlying mass lesions. Palpable marker LEFT breast near the 6 o'clock position. Slightly nodula r dense breast tissue in this area. Ultrasound of this area is pending. RIGHT breast is unremarkable. A few incidental punctate calcifications. Dense breast tissue upper inner RIGHT breast. ULTRASOUND BREAST LEFT TECHNIQUE: Ultrasound left breast focused area of concern. CLINICAL INFORMATION: left breast mass at 6:00 FINDINGS: Ultrasound LEFT breast at the 6 o'clock position in the area of concern. Normal underlying parenchymal tissue. No cystic or solid lesions. No suspicious lesions to target for biopsy. IMPRESSION: MM/[place] [id number] BI-RADS: 2-Benign FOLLOW UP: Age 42 Recommend annual screening mammography age 42
== END 2023-05-23 08:50 | disposition home or self-care (01) ==
LOC: RAD 08:49
PROVIDERS: PCP Family Medicine; Visit Provider Family Medicine
DX: N63.25 Unspecified lump in the left breast, overlapping quadrants (principal)
CPT/HCPCS: 76642; 77062; G0279

== ENCOUNTER 2023-06-19 20:14 | Emergency (ER) | payer MEDICAID, SELFPAY ==
[2023-06-19 20:23] VITALS: BP 165/100; PULSE 84; RESP 17; TEMP 36.8; O2SAT 98; BMI 39.6
--- NOTE | 2023-06-19 20:35 | XRR_ITS ---
PROCEDURE INFORMATION: Exam: XR Chest Exam date and time: 06/19/2023 8:49 PM Age: 37 years old Clinical indication: Shortness of breath; Additional info: Shortness of brath TECHNIQUE: Imaging protocol: Radiologic exam of the chest. Views: 1 view. COMPARISON: CR (CHEST, ) 05/10/2023 2:32 AM FINDINGS: Lungs: Unremarkable. No consolidation. Pleural spaces: No pneumothorax, or pleural effusion. Heart/Mediastinum: Unremarkable. No cardiomegaly. Bones/joints: Status post median sternotomy. XR/XR chest 1V [id number] IMPRESSION: No acute findings.
--- NOTE | 2023-06-19 20:36 | W.ED.WEAKNES ---
Documented by User: Janette De Guzman MD 06/19/23 22:10 HPI - Weakness General: Chief complaint: Weakness Stated complaint: swelling all over , heart patient Time Seen by Provider: 06/19/23 20:30 History of Present Illness: 37-year-old female with history of hypertension, diabetes, coronary artery disease status post CABG who presents the emergency room with intermittent chest discomfort in her bilateral chest and into her back. She also complains of generalized weakness. She says this has been going on for some time. No cough. No altered mental status. No abdominal pain. No dysuria. PFSH ED PFSH: Medical History Bed bug bite Hypertension Abnormal cardiovascular stress test Chest pain CAD (coronary artery disease) STEMI (ST elevation myocardial infarction) Family history of premature CAD Nicotine dependence, cigarettes, with unspecified nicotine-induced disorders Osteoarthritis of left knee High cholesterol delivery delivered Diabetes type 2, uncontrolled Hypercholesteremia Family history of early CAD Surgical History Hx of CABG History of delivery x 2 H/O tubal ligation Family History Father Diabetes Heart disease Mother Diabetes COPD (chronic obstructive pulmonary disease) Emphysema lung Heart disease Kidney failure Arthritis Social History Smoking and tobacco/nicotine status: former use of tobacco/nicotine Second hand smoke exposure: No Substance/Drug Use: never Adopted: No Caregiver/support person: No Lives independently: Yes Housing: House Marital status: Number of children: 2 Highest education level completed: 9th Grade service: No Course Vital Signs: Vital signs: Vital Signs Temperature 98.2 F 06/19/23 20:23 Pulse Rate 85 06/19/23 22:00 Respiratory Rate 16 06/19/23 22:00 Blood Pressure 121/91 06/19/23 22:00 Pulse Oximetry 98 06/19/23 22:00 Oxygen Delivery Me thod Room Air 06/19/23 22:00 MDM - Weakness Medical Decision Making Patient with history of coronary artery disease status post CABG that complains of shortness of breath weakness. Chest x-ray to rule out heart failure also would have concern for hyponatremia or renal failure given her diuresis. She also has diabetes so again will be concern for dehydration. Also urinalysis as she could be prone to urinary tract infections. Lab Data 06/19/23 21:10 06/19/23 21:10 Radiology Impressions Chest X-Ray 06/19/23 20:35 IMPRESSION: No acute findings. Laboratory Results WBC 11.30 10^3/uL (3.29-11.43) 06/19/23 21:10 RBC 4.87 10^6/uL (3.85-5.65) 06/19/23 21:10 Hgb 14.10 g/dL (11.27-16.99) 06/19/23 21:10 Hct 42.8 % (36-47) 06/19/23 21:10 MCV 87.9 fl (85-98) 06/19/23 21:10 MCH 29.0 pg (27-33) 06/19/23 21:10 MCHC 32.9 g/dL (30-55) 06/19/23 21:10 RDW 12.4 % (12.1-15.1) 06/19/23 21:10 Plt Count 328 10^3/cmm (157-399) 06/19/23 21:10 MPV 9.5 fL (7.4-10.4) 06/19/23 21:10 Neut % (Auto) 58.9 % 06/19/23 21:10 Lymph % (Auto) 33.3 % 06/19/23 21:10 [place] % (Auto) 5.6 % 06/19/23 21:10 Eos % (Auto) 1.4 % 06/19/23 21:10 Baso % (Auto) 0.4 % 06/19/23 21:10 Neut # (Auto) 6.66 10^3/uL (1.8-7.7) 06/19/23 21:10 Lymph # (Auto) 3.8 10^3/uL (0.8-4.8) 06/19/23 21:10 [place] # (Auto) 0.6 10^3/uL (0.2-0.9) 06/19/23 21:10 Eos # (Auto) 0.2 10^3/uL (0.0-0.8) 06/19/23 21:10 Baso # (Auto) 0.1 10^3/uL (0.0-0.1) 06/19/23 21:10 Nucleated RBC % (auto) 0 % 06/19/23 21:10 Nucleated RBCs # 0.0 /100WBC 06/19/23 21:10 Sodium 137 mmol/L (136-145) 06/19/23 21:10 Potassium 4.3 mmol/L (3.5-5.1) 06/19/23 21:10 Chloride 100 mmol/L (98-107) 06/19/23 21:10 Carbon Dioxide 24 mmol/L (22-29) 06/19/23 21:10 Anion Gap 17.3 (5-19) 06/19/23 21:10 BUN 9 mg/dL (6-20) 06/19/23 21:10 Creatinine 0.4 mg/dL (0.5-0.9) L 06/19/23 21:10 GFR Calculation 181.6 mL/min (90-130) H 06/19/23 21:10 Glucose 191 mg/dL (65-115) H 06/19/23 21:10 Calculated Osmolality 288 mOsm/kg (285-295) 06/19/23 21:10 Calcium 9.7 mg/dL (8.5-10.5) 06/19/23 21:10 Total Bilirubin 0.2 mg/dL (0.15-1.2) 06/19/23 21:10 AST 15 U/L (0-32) 06/19/23 21:10 ALT 26 U/L (0-33) 06/19/23 21:10 Alkaline Phosphatase 79 U/L (35-105) 06/19/23 21:10 Troponin T Baseline < 6 ng/L (0-10) 06/19/23 21:10 Troponin T 120 Minute 6.00 ng/L (0-10) 06/19/23 23:04 Delta Troponin T 0.03191 ABS# (0-10) 06/19/23 23:04 NT-Pro-B Natriuret Pep 134 pg/mL (0-125) H 06/19/23 21:10 Total Protein 7.0 g/dL (6.6-8.7) 06/19/23 21:10 Albumin 4.3 g/dL (3.5-5.2) 06/19/23 21:10 Globulin 2.7 g/dL (1.3-4.6) 06/19/23 21:10 Urine Color Yellow (Yellow) 06/19/23 22:00 Urine Appearance Clear (CLEAR) 06/19/23 22:00 Urine pH 7 (5-7) 06/19/23 22:00 Ur Specific [place] 1.010 (1.005-1.030) 06/19/23 22:00 Urine Protein Neg (Negative) 06/19/23 22:00 Urine Glucose (UA) 4+ (Normal) H 06/19/23 22:00 Urine Ketones Negative (Negative) 06/19/23 22:00 Urine Blood Neg (Negative) 06/19/23 22:00 Urine Nitrate Negative (Negative) 06/19/23 22:00 Urine Bilirubin Neg (Negative) 06/19/23 22:00 Urine Urobilinogen Neg mg/dL (Negative) 06/19/23 22:00 Ur Leukocyte Esterase Negative (Negative) 06/19/23 22:00 Urine RBC None /hpf (0-2) 06/19/23 22:00 Urine WBC None /hpf (0-5) 06/19/23 22:00 Ur Squamous Epith Cells None /hpf (0-5) 06/19/23 22:00 Amorphous Sediment Not Reportable 06/19/23 22:00 Urine Bacteria 1+ /hpf (NONE) H 06/19/23 22:00 XR interpretation done by ED provider, pending radiology final review Other Data EKG shows no ischemic changes. Chest x-ray shows no evidence of heart failure. Lab work is pending. I have transferred care to Dr. Rodríguez. Discharge Plan Discharge Patient Disposition: Home Clinical Impression: Chest pain Qualifiers: Chest pain type: unspecified Qualified Code(s): R07.9 - Chest pain, unspecified Condition: Stable Prescriptions: No Action nitroglycerin [Nitrostat] 0.4 mg tablet, sublingual 0.4 mg sublingual Q5M PRN (Reason: chest pain) Qty: 25 1RF Rx Instructions: do not exceed 3 doses per episode (DME) Dexcom G7 Sensor Device See Rx Instructions .ROUTE .MEDSUPPLY Qty: 6 0RF Rx Instructions: Change every 10days (DME) Dexcom G7 Cinder Man Misc See Rx Instructions .Route Qty: 1 0RF Rx Instructions: As directed atorvastatin 80 mg tablet 80 mg PO DAILY Qty: 90 3RF (DME) blood-glucose meter [OneTouch Ultra2 Meter] Kit See Rx Instructions .Route Qty: 1 0RF Rx Instructions: check sugar 4-6 times a day (DME) OneTouch Ultra Test Strip See Rx Instructions .Route Qty: 400 1RF Rx Instructions: checck sugar 4-6 times (DME) lancets [OneTouch UltraSoft Lancets] Misc See Rx Instructions .Route Qty: 200 1RF Rx Instructions: As directed carvedilol 6.25 mg tablet 6.25 mg PO BID Qty: 180 0RF insulin glargine [Lantus Solostar U-100 Insulin] 100 unit/mL (3 mL) insulin pen See Rx Instructions .ROUTE .COMPLEX Qty: 15 0RF Dose Instruction: INJECT 40 UNITS SUBCUTANEOUSLY DAILY FOR 60 DAYS Rx Instructions: INJECT 40 UNITS SUBCUTANEOUSLY DAILY FOR 60 DAYS clopidogrel 75 mg tablet See Rx Instructions .ROUTE .COMPLEX Qty: 90 0RF Dose Instruction: TAKE 1 TABLET BY MOUTH EVERY DAY Rx Instructions: TAKE 1 TABLET BY MOUTH EVERY DAY Jardiance 10 mg tablet See Rx Instructions .ROUTE .COMPLEX Qty: 90 1RF Dose Instruction: TAKE 1 TABLET BY MOUTH IN THE MORNING Rx Instructions: TAKE 1 TABLET BY MOUTH IN THE MORNING spironolactone 50 mg tablet See Rx Instructions .ROUTE .COMPLEX Qty: 90 0RF Dose Instruction: TAKE 1 TABLET BY MOUTH EVERY DAY Rx Instructions: TAKE 1 TABLET BY MOUTH EVERY DAY Novolog FlexPen U-100 Insulin 100 unit/mL (3 mL) insulin pen See Rx Instructions .ROUTE .COMPLEX Qty: 30 0RF Dose Instruction: INJECT DIRECTED SUBCUTANEOUSLY 3 TIMES DAILY AFTER MEALS BASED ON SLIDING SCALE, MAX 40 UNITS/DAY Rx Instructions: INJECT DIRECTED SUBCUTANEOUSLY 3 TIMES DAILY AFTER MEALS BASED ON SLIDING SCALE, MAX 40 UNITS/DAY aspirin 81 mg tablet,delayed release (DR/EC) See Rx Instructions .ROUTE .COMPLEX Qty: 90 1RF Dose Instruction: TAKE 1 TABLET BY MOUTH EVERY DAY Rx Instructions: TAKE 1 TABLET BY MOUTH EVERY DAY (DME) pen needle, diabetic [BD Ultra-Fine Short Pen Needle] 31 gauge x 5/16 needle See Rx Instructions .ROUTE .MEDSUPPLY Qty: 200 0RF Rx Instructions: As directed meloxicam 15 mg tablet 15 mg PO DAILY hydrocodone-acetaminophen 5-325 mg tablet 1 tab PO Q6H PRN (Reason: pain) Qty: 14 0RF ondansetron 4 mg tablet,disintegrating 4 mg PO Q6H PRN (Reason: nausea and vomiting) Qty: 14 0RF Augmentin 500-125 mg tablet 1 tab PO BID Qty: 20 0RF Discharge Orders: Discharge ED (Routine); Ordered 06/19/23 Ordered By: Leander Rodríguez Referrals: Kasey Naqvi DO [Primary Care Provider] - 1 week Patient Instructions: Chest Pain (ED) Coding Level of Care Code ED Nurse Staff [facility] Documented by User: Leander Rodríguez DO 06/19/23 23:43 HPI - Weakness General: Chief complaint: Weakness Stated complaint: swelling all over , heart patient Time Seen by Provider: 06/19/23 20:30 PFSH ED PFSH: Medical History Bed bug bite Hypertension Abnormal cardiovascular stress test Chest pain CAD (coronary artery disease) STEMI (ST elevation myocardial infarction) Family history of premature CAD Nicotine dependence, cigarettes, with unspecified nicotine-induced disorders Osteoarthritis of left knee High cholesterol delivery delivered Diabetes type 2, uncontrolled Hypercholesteremia Family history of early CAD Surgical History Hx of CABG History of delivery x 2 H/O tubal ligation Family History Father Diabetes Heart disease Mother Diabetes COPD (chronic obstructive pulmonary disease) Emphysema lung Heart disease Kidney failure Arthritis Social History Smoking and tobacco/nicotine status: former use of tobacco/nicotine Second hand smoke exposure: No Substance/Drug Use: never Adopted: No Caregiver/support person: No Lives independently: Yes Housing: House Marital status: Number of children: 2 Highest education level completed: 9th Grade service: No Physical Exam Neck/C-Spine: COMMON NORMALS: full ROM, no lymphadenopathy, supple, no meningeal signs, no JVD and Thyroid normal THYROID: Thyroid normal Chest: COMMONS NORMALS: normal inspection of the chest and normal palpation of entire chest wall Resp: COMMON NORMALS: normal respiratory effort, No retractions, No use of accessory muscles and clear to auscultation bilaterally AUSCULTATION: clear to auscultation bilaterally Cardio: COMMON NORMALS: no JVD, regular rate, regular rhythm, S1 normal heart sound present, S2 normal heart sound present, No gallops present (Cardio), No clicks present (Cardio), No murmurs present (Cardio) and No rub (Cardio) RATE: regular rate RHYTHM: regular rhythm HEART SOUNDS: S1 normal heart sound present and S2 normal heart sound present GI: COMMON NORMALS: Normal to inspection, nondistended, normoactive bowel sounds present, Soft to palpation, non-tender, No hepatosplenomegaly present, no masses and no bruits PALPATION: Yes Soft to palpation and Yes No hepatosplenomegaly present Neuro: MENINGEAL SIGNS: Yes no meningeal signs Course Vital Signs: Vital signs: Vital Signs Temperature 98.2 F 06/19/23 20:23 Pulse Rate 85 06/19/23 22:00 Respiratory Rate 16 06/19/23 22:00 Blood Pressure 121/91 06/19/23 22:00 Pulse Oximetry 98 06/19/23 22:00 Oxygen Delivery Me thod Room Air 06/19/23 22:00 MDM - Weakness Differential Diagnosis Unlikely acute myocardial infarction, anemia, hypoglycemia, hypothyroidism, rhabdomyolysis, sepsis or dehydration Medical Records I reviewed the patient's medical records. Lab Data I reviewed the patient's lab results. 06/19/23 21:10 06/19/23 21:10 Radiology Impressions Chest X-Ray 06/19/23 20:35 IMPRESSION: No acute findings. Laboratory Results WBC 11.30 10^3/uL (3.29-11.43) 06/19/23 21:10 RBC 4.87 10^6/uL (3.85-5.65) 06/19/23 21:10 Hgb 14.10 g/dL (11.27-16.99) 06/19/23 21:10 Hct 42.8 % (36-47) 06/19/23 21:10 MCV 87.9 fl (85-98) 06/19/23 21:10 MCH 29.0 pg (27-33) 06/19/23 21:10 MCHC 32.9 g/dL (30-55) 06/19/23 21:10 RDW 12.4 % (12.1-15.1) 06/19/23 21:10 Plt Count 328 10^3/cmm (157-399) 06/19/23 21:10 MPV 9.5 fL (7.4-10.4) 06/19/23 21:10 Neut % (Auto) 58.9 % 06/19/23 21:10 Lymph % (Auto) 33.3 % 06/19/23 21:10 [place] % (Auto) 5.6 % 06/19/23 21:10 Eos % (Auto) 1.4 % 06/19/23 21:10 Baso % (Auto) 0.4 % 06/19/23 21:10 Neut # (Auto) 6.66 10^3/uL (1.8-7.7) 06/19/23 21:10 Lymph # (Auto) 3.8 10^3/uL (0.8-4.8) 06/19/23 21:10 [place] # (Auto) 0.6 10^3/uL (0.2-0.9) 06/19/23 21:10 Eos # (Auto) 0.2 10^3/uL (0.0-0.8) 06/19/23 21:10 Baso # (Auto) 0.1 10^3/uL (0.0-0.1) 06/19/23 21:10 Nucleated RBC % (auto) 0 % 06/19/23 21:10 Nucleated RBCs # 0.0 /100WBC 06/19/23 21:10 Sodium 137 mmol/L (136-145) 06/19/23 21:10 Potassium 4.3 mmol/L (3.5-5.1) 06/19/23 21:10 Chloride 100 mmol/L (98-107) 06/19/23 21:10 Carbon Dioxide 24 mmol/L (22-29) 06/19/23 21:10 Anion Gap 17.3 (5-19) 06/19/23 21:10 BUN 9 mg/dL (6-20) 06/19/23 21:10 Creatinine 0.4 mg/dL (0.5-0.9) L 06/19/23 21:10 GFR Calculation 181.6 mL/min (90-130) H 06/19/23 21:10 Glucose 191 mg/dL (65-115) H 06/19/23 21:10 Calculated Osmolality 288 mOsm/kg (285-295) 06/19/23 21:10 Calcium 9.7 mg/dL (8.5-10.5) 06/19/23 21:10 Total Bilirubin 0.2 mg/dL (0.15-1.2) 06/19/23 21:10 AST 15 U/L (0-32) 06/19/23 21:10 ALT 26 U/L (0-33) 06/19/23 21:10 Alkaline Phosphatase 79 U/L (35-105) 06/19/23 21:10 Troponin T Baseline < 6 ng/L (0-10) 06/19/23 21:10 Troponin T 120 Minute 6.00 ng/L (0-10) 06/19/23 23:04 Delta Troponin T 0.13756 ABS# (0-10) 06/19/23 23:04 NT-Pro-B Natriuret Pep 134 pg/mL (0-125) H 06/19/23 21:10 Total Protein 7.0 g/dL (6.6-8.7) 06/19/23 21:10 Albumin 4.3 g/dL (3.5-5.2) 06/19/23 21:10 Globulin 2.7 g/dL (1.3-4.6) 06/19/23 21:10 Urine Color Yellow (Yellow) 06/19/23 22:00 Urine Appearance Clear (CLEAR) 06/19/23 22:00 Urine pH 7 (5-7) 06/19/23 22:00 Ur Specific [place] 1.010 (1.005-1.030) 06/19/23 22:00 Urine Protein Neg (Negative) 06/19/23 22:00 Urine Glucose (UA) 4+ (Normal) H 06/19/23 22:00 Urine Ketones Negative (Negative) 06/19/23 22:00 Urine Blood Neg (Negative) 06/19/23 22:00 Urine Nitrate Negative (Negative) 06/19/23 22:00 Urine Bilirubin Neg (Negative) 06/19/23 22:00 Urine Urobilinogen Neg mg/dL (Negative) 06/19/23 22:00 Ur Leukocyte Esterase Negative (Negative) 06/19/23 22:00 Urine RBC None /hpf (0-2) 06/19/23 22:00 Urine WBC None /hpf (0-5) 06/19/23 22:00 Ur Squamous Epith Cells None /hpf (0-5) 06/19/23 22:00 Amorphous Sediment Not Reportable 06/19/23 22:00 Urine Bacteria 1+ /hpf (NONE) H 06/19/23 22:00 Discharge Plan Discharge Patient Disposition: Home Clinical Impression: Chest pain Qualifiers: Chest pain type: unspecified Qualified Code(s): R07.9 - Chest pain, unspecified Condition: Stable Prescriptions: No Action nitroglycerin [Nitrostat] 0.4 mg tablet, sublingual 0.4 mg sublingual Q5M PRN (Reason: chest pain) Qty: 25 1RF Rx Instructions: do not exceed 3 doses per episode (DME) Dexcom G7 Sensor Device See Rx Instructions .ROUTE .MEDSUPPLY Qty: 6 0RF Rx Instructions: Change every 10days (DME) Dexcom G7 Cinder Man Misc See Rx Instructions .Route Qty: 1 0RF Rx Instructions: As directed atorvastatin 80 mg tablet 80 mg PO DAILY Qty: 90 3RF (DME) blood-glucose meter [OneTouch Ultra2 Meter] Kit See Rx Instructions .Route Qty: 1 0RF Rx Instructions: check sugar 4-6 times a day (DME) OneTouch Ultra Test Strip See Rx Instructions .Route Qty: 400 1RF Rx Instructions: checck sugar 4-6 times (DME) lancets [OneTouch UltraSoft Lancets] Misc See Rx Instructions .Route Qty: 200 1RF Rx Instructions: As directed carvedilol 6.25 mg tablet 6.25 mg PO BID Qty: 180 0RF insulin glargine [Lantus Solostar U-100 Insulin] 100 unit/mL (3 mL) insulin pen See Rx Instructions .ROUTE .COMPLEX Qty: 15 0RF Dose Instruction: INJECT 40 UNITS SUBCUTANEOUSLY DAILY FOR 60 DAYS Rx Instructions: INJECT 40 UNITS SUBCUTANEOUSLY DAILY FOR 60 DAYS clopidogrel 75 mg tablet See Rx Instructions .ROUTE .COMPLEX Qty: 90 0RF Dose Instruction: TAKE 1 TABLET BY MOUTH EVERY DAY Rx Instructions: TAKE 1 TABLET BY MOUTH EVERY DAY Jardiance 10 mg tablet See Rx Instructions .ROUTE .COMPLEX Qty: 90 1RF Dose Instruction: TAKE 1 TABLET BY MOUTH IN THE MORNING Rx Instructions: TAKE 1 TABLET BY MOUTH IN THE MORNING spironolactone 50 mg tablet See Rx Instructions .ROUTE .COMPLEX Qty: 90 0RF Dose Instruction: TAKE 1 TABLET BY MOUTH EVERY DAY Rx Instructions: TAKE 1 TABLET BY MOUTH EVERY DAY Novolog FlexPen U-100 Insulin 100 unit/mL (3 mL) insulin pen See Rx Instructions .ROUTE .COMPLEX Qty: 30 0RF Dose Instruction: INJECT DIRECTED SUBCUTANEOUSLY 3 TIMES DAILY AFTER MEALS BASED ON SLIDING SCALE, MAX 40 UNITS/DAY Rx Instructions: INJECT DIRECTED SUBCUTANEOUSLY 3 TIMES DAILY AFTER MEALS BASED ON SLIDING SCALE, MAX 40 UNITS/DAY aspirin 81 mg tablet,delayed release (DR/EC) See Rx Instructions .ROUTE .COMPLEX Qty: 90 1RF Dose Instruction: TAKE 1 TABLET BY MOUTH EVERY DAY Rx Instructions: TAKE 1 TABLET BY MOUTH EVERY DAY (DME) pen needle, diabetic [BD Ultra-Fine Short Pen Needle] 31 gauge x 5/16 needle See Rx Instructions .ROUTE .MEDSUPPLY Qty: 200 0RF Rx Instructions: As directed meloxicam 15 mg tablet 15 mg PO DAILY hydrocodone-acetaminophen 5-325 mg tablet 1 tab PO Q6H PRN (Reason: pain) Qty: 14 0RF ondansetron 4 mg tablet,disintegrating 4 mg PO Q6H PRN (Reason: nausea and vomiting) Qty: 14 0RF Augmentin 500-125 mg tablet 1 tab PO BID Qty: 20 0RF Discharge Orders: Discharge ED (Routine); Ordered 06/19/23 Ordered By: Leander Rodríguez Referrals: Kasey Naqvi DO [Primary Care Provider] - 1 week Patient Instructions: Chest Pain (ED) Coding Level of Care Code ED Nurse Staff [facility]
[2023-06-19 21:43] LABS: Troponin(5th) Baseline < 6 ng/L (0-10)
[2023-06-19 21:50] LABS: Alanine Aminotransferase 26 U/L (0-33); Albumin Level 4.3 g/dL (3.5-5.2); Alkaline Phosphatase 79 U/L (35-105); Anion Gap 17.3 (5-19); Aspartate Amino Transferase 15 U/L (0-32); Blood Urea Nitrogen 9 mg/dL (6-20); Calcium 9.7 mg/dL (8.5-10.5); Carbon Dioxide 24 mmol/L (22-29); Chloride 100 mmol/L (98-107); Globulin 2.7 g/dL (1.3-4.6); Glomerular Filtration Rate 181.6 mL/min (90-130); Glucose 191 mg/dL (65-115); NT Pro B Type Natriuretic Pept 134 pg/mL (0-125); Osmolality Calculated 288 mOsm/kg (285-295); Potassium 4.3 mmol/L (3.5-5.1); Sodium 137 mmol/L (136-145); Total Bilirubin 0.2 mg/dL (0.15-1.2)
[2023-06-19 22:00] VITALS: BP 121/91; PULSE 85; RESP 16; O2SAT 98
[2023-06-19 22:09] LABS: Basophils # 0.1 10^3/uL (0.0-0.1); Basophils % 0.4 %; Eosinophils # 0.2 10^3/uL (0.0-0.8); Eosinophils % 1.4 %; Hematocrit 42.8 % (36-47); Lymphocytes # 3.8 10^3/uL (0.8-4.8); Lymphocytes % 33.3 %; Mean Corpuscular HGB Conc 32.9 g/dL (30-55); Mean Corpuscular Volume 87.9 fl (85-98); Mean Platelet Volume 9.5 fL (7.4-10.4); Monocytes # 0.6 10^3/uL (0.2-0.9); Monocytes % 5.6 %; Neutrophils # 6.66 10^3/uL (1.8-7.7); Neutrophils % 58.9 %; Nucleated Red Blood Cells % 0 %; Platelet Count 328 10^3/cmm (157-399); Red Blood Count 4.87 10^6/uL (3.85-5.65); Red Cell Distribution Width 12.4 % (12.1-15.1)
[2023-06-19 22:13] LABS: Bilirubin Urine Neg (Negative); Blood Urine Neg (Negative); Glucose Urine UA 4+ (Normal); Ketones Urine Negative (Negative); Leukocyte Esterase Urine Negative (Negative); Nitrate Urine Negative (Negative); Protein Urine Neg (Negative); Urine Appearance Clear (CLEAR); Urine Color Yellow (Yellow); Urobilinogen Urine Neg (Negative); pH Urine 7 (5-7)
[2023-06-19 22:14] LABS: Add Urine Culture? No; Bacteria Urine 1+ /hpf
[2023-06-19 23:24] LABS: Troponin 5 2HR Delta 0.00001 ABS# (0-10)
== END 2023-06-20 00:08 | disposition home or self-care (01) ==
PROVIDERS: Emergency Medicine; Emergency Provider Emergency Medicine; PCP Family Medicine
DX: R07.9 Chest pain, unspecified (principal); Z79.82 Long term (current) use of aspirin; Z79.02 Long term (current) use of antithrombotics/antiplatelets; Z79.4 Long term (current) use of insulin; Z87.891 Personal history of nicotine dependence; I10 Essential (primary) hypertension; I25.10 Atherosclerotic heart disease of native coronary artery without angina pectoris; I25.2 Old myocardial infarction; E11.9 Type 2 diabetes mellitus without complications; Z95.1 Presence of aortocoronary bypass graft
CPT/HCPCS: 71045; 80048; 80053; 81001; 83880; 84484; 85025; 99285

== ENCOUNTER 2023-07-01 05:35 | Day surgery (SDC) | payer MEDICAID, SELFPAY ==
[2023-07-01] VITALS (14 sets, daily range): BP systolic 116–164; BP diastolic 65–102; PULSE 49–71; RESP 15–18; TEMP 36.1–36.7; O2SAT 93–100; BMI 40.3
[2023-07-01 06:08] LABS: OR HCG Qualitative Urine Negative (Negative)
[2023-07-01 06:31] LABS: Glucose Point of Care 245 mg/dL (70-110)
[2023-07-01] MEDS: sodium chloride 0.9% 1,000 ML 30 ML IV (06:43)
--- NOTE | 2023-07-01 06:55 | P.ANESASSM_ITS ---
Pre-Anesthetic Assessment Height/Weight: Height 1.68 m Weight 113.398 kg Temp Pulse Resp BP Pulse Ox O2 Del Method 97.0 F L 71 18 116/90 96 Room Air 07/01/23 06:44 07/01/23 06:44 07/01/23 06:44 07/01/23 06:44 07/01/23 06:44 07/01/23 06:44 Operation Date: 07/01/23 07:00 Proposed Procedures p lap gavino [id number](Not Applicable) - José Miguel Blanchard DO Familial anesthetic complications: nausea Was Beta Jhony taken within 24 hours: Yes Was Clonidine taken within 24 hours: N/A Last intake: Intake Last Liquid Date 06/30/23 Last Liquid Time 21:00 Last Solid Date 06/30/23 Last Solid Time 21:00 Social No alcohol and No tobacco Exam alert, oriented x 3, clear to auscultation bilaterally and regular rate & rhythm Airway Mallampati: Class III Dentition: other (no teeth) CV/HEM Coronary Artery Disease (Cabg in 11/06) and Hypertension Frequent heartburn with radiation to back, most recent visit to ER patient sates same as heartburn pain. No more episodes. patient also states able to achieve > 4 METS without cardiac symptoms Metabolic Diabetes Mellitus and Morbid Obesity Anesthetic Plan ASA status: 3 Anesthesia: General Risk of > 500 ml blood loss (7ml/kg in children): No Medications/Allergies Home Medications Medication Instructions Recorded Confirmed Last Taken Type blood sugar diagnostic (OneTouch #400 ea 07/12/22 05/21/23 Unknown Rx Ultra Test strips) blood-glucose meter (OneTouch #1 ea 07/12/22 05/21/23 Unknown Rx Ultra2 Meter kit) lancets (OneTouch UltraSoft #200 ea 07/12/22 05/21/23 Unknown Rx Lancets) nitroglycerin 0.4 mg sublingual 0.4 mg sublingual Q5M PRN chest 09/11/22 06/28/23 05/07/23 Rx tablet (Nitrostat) pain #25 tabs carvedilol 6.25 mg tablet 6.25 mg PO BID #180 tabs 11/13/22 06/28/23 07/01/23 Rx blood-glucose meter,continuous #1 ea 11/19/22 05/21/23 Unknown Rx (Dexcom G7 Safety And Skill Based Pay Manager) blood-glucose sensor (Dexcom G7 #6 ea 11/19/22 05/21/23 Unknown Rx Sensor device) atorvastatin 80 mg tablet 80 mg PO DAILY #90 tabs 01/11/23 06/28/23 06/30/23 Rx meloxicam 15 mg tablet 15 mg PO DAILY 01/22/23 06/28/23 06/30/23 History insulin glargine 100 unit/mL (3 See Rx Instructions .Route 01/25/23 06/28/23 06/30/23 Rx mL) subcutaneous pen (Lantus .COMPLEX #15 mL Solostar U-100 Insulin) clopidogrel 75 mg tablet See Rx Instructions .Route 04/15/23 06/28/23 06/27/23 Rx .COMPLEX #90 tabs empagliflozin 10 mg tablet See Rx Instructions .Route 04/15/23 06/28/23 06/30/23 Rx (Jardiance) .COMPLEX #90 tabs insulin aspart U-100 100 unit/mL See Rx Instructions .Route 05/06/23 06/28/23 06/30/23 Rx (3 mL) subcutaneous pen (Novolog .COMPLEX #30 mL FlexPen U-100 Insulin aspart) aspirin 81 mg tablet,delayed See Rx Instructions .Route 05/28/23 07/01/23 06/30/23 Rx release .COMPLEX #90 tabs pen needle, diabetic 31 gauge x #200 ea 06/13/23 Unknown Rx 5/16 (BD Ultra-Fine Short Pen Needle) spironolactone 50 mg tablet See Rx Instructions .Route 06/25/23 06/28/23 06/30/23 Rx .COMPLEX #90 tabs Allergies Allergy/AdvReac Type Severity Reaction Status Date / Time No Known Allergies Allergy Verified 07/01/23 06:09 Current Medications Generic Name Dose Route Start Last Admin Trade Name Freq PRN Reason Stop Dose Admin Sodium Chloride 1,000 mls @ 30 mls/hr 07/01/23 06:30 07/01/23 06:43 Sodium Chloride 0.9% IV 30 mls/hr .Q24H QUIN Administration PFSH Anesthesia Medical History Bed bug bite Hypertension Abnormal cardiovascular stress test Chest pain CAD (coronary artery disease) STEMI (ST elevation myocardial infarction) Family history of premature CAD Nicotine dependence, cigarettes, with unspecified nicotine-induced disorders Osteoarthritis of left knee High cholesterol delivery delivered Diabetes type 2, uncontrolled Hypercholesteremia Family history of early CAD Surgical History Hx of CABG History of delivery x 2 H/O tubal ligation Family History Father Diabetes Heart disease Mother Diabetes COPD (chronic obstructive pulmonary disease) Emphysema lung Heart disease Kidney failure Arthritis Social History Smoking and tobacco/nicotine status: former use of tobacco/nicotine Second hand smoke exposure: No Substance/Drug Use: never Adopted: No Caregiver/support person: No Lives independently: Yes Housing: House Marital status: Number of children: 2 Highest education level completed: 9th Grade service: No Data Anesthesia Cardiac Studies: Echocardiogram 07/10/22 Sestamibi Stress Test (Cardiology) 10/15
[2023-07-01] MEDS: ceFAZolin 2,000 MG in sodium chloride 0.9% (plus) 50 ML 100 MG IV (06:56)
[2023-07-01] MEDS: lidocaine-epi 2% 20 mL INJ INJECTION (07:18)
--- NOTE | 2023-07-01 08:50 | P.OP_ITS ---
Operative Report Date of procedure: July 01, 2023 Pre-op diagnosis: Cholecystitis Post-op diagnosis: Chronic cholecystitis Possible porcelain gallbladder Procedure done: laparoscopic cholecystectomy Implants: Surgicel Specimens removed/disposition: Gallbladder Surgeon: José Miguel Blanchard DO Estimated blood loss (mL): 50 Complications: None apparent Brief History: This is a very pleasant 37-year-old female who presents my office with a history of acute calculus cholecystitis was treated conservatively. Laparoscopic cholecystectomy was indicated. The risk and benefits were explained and documented. Procedure: Patient was wheeled into the operative room and placed on the OR table in a supine position. Abdomen was inspected prepped and draped in usual sterile fashion. Time-out was performed and all present were in agreement. A 15 blade scalp was used to make a stab incision in the left upper quadrant and intra- abdominal insufflation was achieved using a Veress needle. After localizing the tissue incisions were made and a 5 millimeter trocar was placed into the umbilicus as well as 2 in the right upper quadrant. A 12 millimeter trocar was placed in the epigastrium. Gallbladder was grasped and elevated. The gallbladder was very small and hard, possibly a porcelain gallbladder. There were thick dense adhesions to the gallbladder and in the triangle of Calot. The triangle of Calot was carefully And meticulously dissected using blunt disse ction and electrocautery until the triangle of Calot clearly identified. The cystic duct was clipped proximally and double clipped distally. The duct was then ligated proximally. The cystic artery was doubly clipped and ligated. The gallbladder was then removed from the liver bed using electrocautery. The gallbladder was removed from the abdomen using an Endo-Catch bag through the epigastric incision. There was venous bleeding from the liver bed which was controlled with 2 pieces of Surgicel and electrocautery. The liver bed was inspected and no bleeding was seen. The abdomen was irrigated and suctioned. The epigastric incision had to be extended significantly in order to remove the gallbladder. The fascia at this incision was closed with a Rob-Noel and 0 Vicryl in a [id number] fashion. All ports removed. Skin was washed and dried. Incisions were closed with 4-0 Monocryl in a subcuticular interrupted fashion. Skin glue was applied. Patient tolerated the procedure well.
[2023-07-01] MEDS: insulin regular-human 100 units/1 mL 10 UNIT IVP (09:30)
[2023-07-01] MEDS: ondansetron 2 mg/ML SDV 2 mL 4 MG IVP ×4 (09:35→10:54)
[2023-07-01 09:50] LABS: Glucose Point of Care 240 mg/dL (70-110)
[2023-07-01] MEDS: HYDROcodone-acetaminophen 10-325 mg Tablet 1 TAB PO (09:56)
--- NOTE | 2023-07-01 11:00 | ANE.PACU2 ---
Inpatient post-anesthesia follow up: Airway intact: Yes Vital signs: Temperature 97.0 F Pulse Rate 59 Respiratory Rate 18 Blood Pressure 162/89 Pulse Oximetry 97 Oxygen Delivery Me thod Room Air Oxygen Flow Rate 3 Fraction of Inspir ed Oxygen Hydration adequate: Yes Nausea and vomiting: No Pain level: 1 Mental status: Baseline
== END 2023-07-01 11:00 | disposition home or self-care (01) ==
PROVIDERS: Anesthesiology; PCP Family Medicine; Visit Provider Surgery
PROC: 0FT44ZZ Resection of Gallbladder, Percutaneous Endoscopic Approach (ICD-10-PCS; CPT 47562; principal; 2023-07-01 07:00)
DX: K80.10 Calculus of gallbladder with chronic cholecystitis without obstruction (principal); I25.10 Atherosclerotic heart disease of native coronary artery without angina pectoris; Z95.1 Presence of aortocoronary bypass graft; I10 Essential (primary) hypertension; E11.9 Type 2 diabetes mellitus without complications; E66.01 Morbid (severe) obesity due to excess calories; Z68.41 Body mass index [BMI] 40.0-44.9, adult; Z79.4 Long term (current) use of insulin; I25.2 Old myocardial infarction; E78.00 Pure hypercholesterolemia, unspecified; Z87.891 Personal history of nicotine dependence
CPT/HCPCS: 47562; 36416; 82962; 84703; 88304; C1713; J0690; J1815; J2250; J2405; J2704; J2710; J3010; J3490; J7030

== ENCOUNTER → 2023-07-23 14:02 | Outpatient (BNVA) | payer MEDICAID, SELFPAY | PROVIDERS: PCP Family Medicine; Referring Provider Family Medicine; Visit Provider Nurse Practitioner Family | DX: R07.89 Other chest pain (principal); I25.10 Atherosclerotic heart disease of native coronary artery without angina pectoris; Z95.1 Presence of aortocoronary bypass graft | CPT/HCPCS: 99214 ==

== ENCOUNTER 2023-07-25 22:06 | Emergency (ER) | payer MEDICAID, SELFPAY ==
[2023-07-25 22:08] VITALS: BP 134/93; PULSE 77; RESP 16; TEMP 36.7; O2SAT 98
--- NOTE | 2023-07-25 22:14 | XRR_ITS ---
PROCEDURE INFORMATION: Exam: XR Chest Exam date and time: 07/25/2023 10:31 PM Age: 37 years old Clinical indication: Chest wall pain; Additional info: Chest pain TECHNIQUE: Imaging protocol: Radiologic exam of the chest. Views: 1 view. COMPARISON: CR (CHEST, ) 06/19/2023 8:49 PM FINDINGS: Lungs: No focal consolidation. Pleural spaces: No evidence of pneumothorax. No evidence of pleural effusion. Heart/Mediastinum: Postsurgical changes of the mediastinum compatible with prior CABG. Cardiomediastinal silhouette is otherwise within normal limits. Bones/joints: No evidence of acute osseous abnormality. XR/XR chest 1V portable [id number] IMPRESSION: 1. No acute cardiopulmonary abnormality.
[2023-07-25 22:35] LABS: Basophils % 0.5 %; Eosinophils # 0.2 10^3/uL (0.0-0.8); Eosinophils % 2.6 %; Hematocrit 39.9 % (36-47); Lymphocytes # 3.1 10^3/uL (0.8-4.8); Lymphocytes % 38.3 %; Mean Corpuscular HGB Conc 33.1 g/dL (30-55); Mean Corpuscular Hemoglobin 28.9 pg (27-33); Mean Corpuscular Volume 87.3 fl (85-98); Mean Platelet Volume 9.4 fL (7.4-10.4); Monocytes # 0.5 10^3/uL (0.2-0.9); Monocytes % 6.2 %; Neutrophils # 4.19 10^3/uL (1.8-7.7); Neutrophils % 52.3 %; Nucleated Red Blood Cells % 0 %; Platelet Count 304 10^3/cmm (157-399); Red Blood Count 4.57 10^6/uL (3.85-5.65); Red Cell Distribution Width 12.4 % (12.1-15.1); White Blood Count 8.02 10^3/uL (3.29-11.43)
[2023-07-25 22:48] LABS: INR 0.95 (0.8-1.2)
--- NOTE | 2023-07-25 22:52 | W.ED.CHESTPA ---
HPI - Chest Pain General: Chief Complaint: Chest Pain Stated Complaint: Chest Pain Time Seen by Provider: 07/25/23 22:10 History of Present Illness: Patient presents to the ER with complaints of left-sided chest pain that started a few hours ago. Patient took 324 mg aspirin and 1 nitro and then called EMS. By time EMS arrived there patient was pain-free. Patient says she gets these pains quite frequently. Patient has recently had three-vessel CABG. Patient did see her sales engineer account manager yesterday and discussed these chronic pains with her and they ordered an echo. Patient denies any shortness of breath, diaphoresis, nausea vomiting Review of Systems General: Reports: 10 or more systems reviewed and unremarkable except in HPI and below PFSH ED PFSH: Medical History Bed bug bite Hypertension Abnormal cardiovascular stress test Chest pain CAD (coronary artery disease) STEMI (ST elevation myocardial infarction) Family history of premature CAD Nicotine dependence, cigarettes, with unspecified nicotine-induced disorders Osteoarthritis of left knee High cholesterol delivery delivered Diabetes type 2, uncontrolled Hypercholesteremia Family history of early CAD Surgical History Hx of CABG History of delivery x 2 H/O tubal ligation Family History Father Diabetes Heart disease Mother Diabetes COPD (chronic obstructive pulmonary disease) Emphysema lung Heart disease Kidney failure Arthritis Social History Smoking and tobacco/nicotine status: former use of tobacco/nicotine Second hand smoke exposure: No Substance/Drug Use: never Adopted: No Caregiver/support person: No Lives independently: Yes Housing: House Marital status: Number of children: 2 Highest education level completed: 9th Grade service: No Physical Exam Const: COMMON NORMALS: no acute distress, average body habitus, patient oriented x3, no limitations, healthy appearing, alert and well nourished Neck/C-Spine: COMMON NORMALS: no JVD Chest: COMMONS NORMALS: normal inspection of the chest and normal palpation of entire chest wall Resp: COMMON NORMALS: normal respiratory effort, No retractions, No use of accessory muscles and clear to auscultation bilaterally AUSCULTATION: clear to auscultation bilaterally Cardio: COMMON NORMALS: no JVD, regular rate, regular rhythm, S1 normal heart sound present, S2 normal heart sound present, No gallops present (Cardio), No clicks present (Cardio), No murmurs present (Cardio) and No rub (Cardio) RATE: regular rate RHYTHM: regular rhythm HEART SOUNDS: S1 normal heart sound present and S2 normal heart sound present GI: COMMON NORMALS: Normal to inspection, nondistended, normoactive bowel sounds present, Soft to palpation, non-tender, No hepatosplenomegaly present and no masses PALPATION: Yes Soft to palpation and Yes No hepatosplenomegaly present Neuro: COMMON NORMALS: patient oriented x3 SENSORIUM/ORIENTATION: Yes alert Course Vital Signs: Vital signs: Vital Signs Temperature 98.1 F 07/25/23 22:08 Pulse Rate 84 07/25/23 23:48 Respiratory Rate 18 07/25/23 23:48 Blood Pressure 155/104 07/25/23 23:48 Pulse Oximetry 99 07/25/23 23:48 Oxygen Delivery Me thod Room Air 07/25/23 22:08 MDM - Chest Pain Medical Decision Making Patient presents to the ER with complaints of chest pain. Patient took nitro and aspirin at home and is chest pain-free upon arrival. Patient was worked up in a standard chest pain fashion with serial EKGs, enzymes, chest x-ray, all of which was essentially benign except for patient's blood sugar 416, for which the patient is a insulin-dependent diabetic. EKG did not show any acute changes. Patient be discharged home to self administer insulin for her blood sugar and patient should follow-up with her PCP and/or sales engineer account manager within the next 7 to 10 days for further evaluation and treatment as needed. Differential Diagnosis Unlikely acute massive pulmonary embolism, acute respiratory failure, acute myocardial infarction, cardiac arrest or sudden cardiac Medical Records I reviewed the patient's medical records. Lab Data I reviewed the patient's lab results. 07/25/23 22:30 07/25/23 22:30 Radiology Impressions Chest X-Ray 07/25/23 22:14 IMPRESSION: 1. No acute cardiopulmonary abnormality. Laboratory Results WBC 8.02 10^3/uL (3.29-11.43) 07/25/23 22:30 RBC 4.57 10^6/uL (3.85-5.65) 07/25/23 22:30 Hgb 13.20 g/dL (11.27-16.99) 07/25/23 22: Hct 39.9 % (36-47) 07/25/23 22: MCV 87.3 fl (85-98) 07/25/23 22:30 MCH 28.9 pg (27-33) 07/25/23 22: MCHC 33.1 g/dL (30-55) 07/25/23 22: RDW 12.4 % (12.1-15.1) 07/25/23: Plt Count 304 10^3/cmm (157-399) 07/25/23: MPV 9.4 fL (7.4-10.4) 07/25/23: Neut % (Auto) 52.3 % 07/25/23 22: Lymph % (Auto) 38.3 % 07/25/23 22: [place] % (Auto) 6.2 % 07/25/23 22: Eos % (Auto) 2.6 % 07/25/23 22: Baso % (Auto) 0.5 % 07/25/23: Neut # (Auto) 4.19 10^3/uL (1.8-7.7) 07/25/23: Lymph # (Auto) 3.1 10^3/uL (0.8-4.8) 07/25/23: [place] # (Auto) 0.5 10^3/uL (0.2-0.9) 07/25/23: Eos # (Auto) 0.2 10^3/uL (0.0-0.8) 07/25/23: Baso # (Auto) 0.0 10^3/uL (0.0-0.1) 07/25/23: Nucleated RBC % (auto) 0 % 07/25/23: Nucleated RBCs # 0.0 /100WBC 07/25/23: PT 13.00 SECONDS (12.1-14.9) 07/25/23: INR 0.95 (0.8-1.2) 07/25/23: Sodium 134 mmol/L (136-145) L 07/25/23 22:30 Potassium 4.1 mmol/L (3.5-5.1) 07/25/23 22:30 Chloride 98 mmol/L (98-107) 07/25/23 22:30 Carbon Dioxide 20 mmol/L (22-29) L 07/25/23 22:30 Anion Gap 20.1 (5-19) H 07/25/23 22:30 BUN 10 mg/dL (6-20) 07/25/23 22:30 Creatinine 0.5 mg/dL (0.5-0.9) 07/25/23 22:30 GFR Calculation 140.4 mL/min (90-130) H 07/25/23 22:30 Glucose 416 mg/dL (65-115) H 07/25/23 22:30 Calculated Osmolality 295 mOsm/kg (285-295) 07/25/23 22:30 Calcium 9.0 mg/dL (8.5-10.5) 07/25/23 22:30 Total Bilirubin 0.2 mg/dL (0.15-1.2) 07/25/23 22:30 AST 13 U/L (0-32) 07/25/23 22:30 ALT 22 U/L (0-33) 07/25/23 22:30 Alkaline Phosphatase 77 U/L (35-105) 07/25/23 22:30 Troponin T Baseline < 6 ng/L (0-10) 07/25/23 22:30 Troponin T 120 Minute 6.84 ng/L (0-10) 07/26/23 00:38 Delta Troponin T 0.08232 ABS# (0-10) 07/26/23 00:38 Total Protein 6.7 g/dL (6.6-8.7) 07/25/23 22:30 Albumin 4.0 g/dL (3.5-5.2) 07/25/23 22:30 Globulin 2.7 g/dL (1.3-4.6) 07/25/23 22:30 All radiology interpretation(s) finalized by discharge EKG Data EKG 1: I personally reviewed and interpreted this EKG as follows: EKG interpretation date: 07/25/23 EKG interpretation time: 22:09 Prior EKG tracings: available for review Interpretation: Ventricular rate 77 beats minute, LA interval 155, QRS duration 84, QTc 397, sinus rhythm, EKG 2: I personally reviewed and interpreted this EKG as follows: EKG interpretation date: 07/25/23 EKG interpretation time: 23:16 Prior EKG tracings: available for review Interpretation: Ventricular rate 82 beats minute, LA interval 136, QRS duration 90, QTc of 417, sinus rhythm Discharge Plan Discharge Patient Disposition: Home Clinical Impression: Hyperglycemia due to diabetes mellitus Chest pain Qualifiers: Chest pain type: unspecified Qualified Code(s): R07.9 - Chest pain, unspecified Condition: Stable Prescriptions: No Action nitroglycerin [Nitrostat] 0.4 mg tablet, sublingual 0.4 mg sublingual Q5M PRN (Reason: chest pain) Qty: 25 1RF Rx Instructions: do not exceed 3 doses per episode (DME) Dexcom G7 Sensor Device See Rx Instructions .ROUTE .MEDSUPPLY Qty: 6 0RF Rx Instructions: Change every 10days (DME) Dexcom G7 Barrel Roller Operator Misc See Rx Instructions .Route Qty: 1 0RF Rx Instructions: As directed atorvastatin 80 mg tablet 80 mg PO DAILY Qty: 90 3RF (DME) blood-glucose meter [OneTouch Ultra2 Meter] Kit See Rx Instructions .Route Qty: 1 0RF Rx Instructions: check sugar 4-6 times a day (DME) OneTouch Ultra Test Strip See Rx Instructions .Route Qty: 400 1RF Rx Instructions: checck sugar 4-6 times (DME) lancets [OneTouch UltraSoft Lancets] Misc See Rx Instructions .Route Qty: 200 1RF Rx Instructions: As directed clopidogrel 75 mg tablet See Rx Instructions .ROUTE .COMPLEX Qty: 90 0RF Hold Instructions: Resume on 07/04/23. Dose Instruction: TAKE 1 TABLET BY MOUTH EVERY DAY Rx Instructions: TAKE 1 TABLET BY MOUTH EVERY DAY Jardiance 10 mg tablet See Rx Instructions .ROUTE .COMPLEX Qty: 90 1RF Dose Instruction: TAKE 1 TABLET BY MOUTH IN THE MORNING Rx Instructions: TAKE 1 TABLET BY MOUTH IN THE MORNING Novolog FlexPen U-100 Insulin 100 unit/mL (3 mL) insulin pen See Rx Instructions .ROUTE .COMPLEX Qty: 30 0RF Dose Instruction: INJECT DIRECTED SUBCUTANEOUSLY 3 TIMES DAILY AFTER MEALS BASED ON SLIDING SCALE, MAX 40 UNITS/DAY Rx Instructions: INJECT DIRECTED SUBCUTANEOUSLY 3 TIMES DAILY AFTER MEALS BASED ON SLIDING SCALE, MAX 40 UNITS/DAY aspirin 81 mg tablet,delayed release (DR/EC) See Rx Instructions .ROUTE .COMPLEX Qty: 90 1RF Dose Instruction: TAKE 1 TABLET BY MOUTH EVERY DAY Rx Instructions: TAKE 1 TABLET BY MOUTH EVERY DAY (DME) pen needle, diabetic [BD Ultra-Fine Short Pen Needle] 31 gauge x 5/16 needle See Rx Instructions .ROUTE .MEDSUPPLY Qty: 200 0RF Rx Instructions: As directed spironolactone 50 mg tablet See Rx Instructions .ROUTE .COMPLEX Qty: 90 0RF Dose Instruction: TAKE 1 TABLET BY MOUTH EVERY DAY Rx Instructions: TAKE 1 TABLET BY MOUTH EVERY DAY insulin glargine [Lantus Solostar U-100 Insulin] 100 unit/mL (3 mL) insulin pen See Rx Instructions .ROUTE .COMPLEX Qty: 15 0RF Dose Instruction: INJECT 40 UNITS SUBCUTANEOUSLY DAILY FOR 60 DAYS Rx Instructions: INJECT 40 UNITS SUBCUTANEOUSLY DAILY FOR 60 DAYS ondansetron 8 mg tablet,disintegrating 8 mg PO Q8H PRN (Reason: nausea and vomiting) Qty: 20 0RF carvedilol 6.25 mg tablet 6.25 mg PO BID Qty: 180 0RF meloxicam 15 mg tablet 15 mg PO DAILY Hold Instructions: Resume on 07/03/23. hydrocodone-acetaminophen 10-325 mg tablet 1 tab PO Q6H PRN (Reason: pain) Qty: 20 0RF Colace 100 mg capsule 100 mg PO BID Qty: 14 0RF Discharge Orders: Discharge ED (Routine); Ordered 07/26/23 Ordered By: Leander Rodríguez Referrals: Kasey Naqvi DO [Primary Care Provider] - 1 week Patient Instructions: Chest Pain (ED), Diabetic Hyperglycemia (ED) Activity Restrictions/Additional Instructions: Your evaluation in the ER did not show any acute cardiac cause for your chest pain. Is felt to be noncardiac in nature. Your lab work and EKGs were unchanged. Your blood sugar was high at 416. Please self administer insulin per sliding scale To help lower this. Please follow-up with your family practice physician or sales engineer account manager within the next 7 days for further evaluation and treatment. If your chest pain worsens or returns please feel free to return to the ER. Coding Level of Care Code ED Skip Hoist Operator for Marii Alegria
[2023-07-25 22:53] LABS: Troponin(5th) Baseline < 6 ng/L (0-10)
[2023-07-25 22:58] LABS: Alanine Aminotransferase 22 U/L (0-33); Alkaline Phosphatase 77 U/L (35-105); Anion Gap 20.1 (5-19); Aspartate Amino Transferase 13 U/L (0-32); Blood Urea Nitrogen 10 mg/dL (6-20); Carbon Dioxide 20 mmol/L (22-29); Chloride 98 mmol/L (98-107); Globulin 2.7 g/dL (1.3-4.6); Glomerular Filtration Rate 140.4 mL/min (90-130); Glucose 416 mg/dL (65-115); Osmolality Calculated 295 mOsm/kg (285-295); Potassium 4.1 mmol/L (3.5-5.1); Sodium 134 mmol/L (136-145); Total Bilirubin 0.2 mg/dL (0.15-1.2); Total Protein 6.7 g/dL (6.6-8.7)
--- NOTE | 2023-07-25 23:16 | ECG_ITS ---
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 Measurements Intervals [place] Rate: 82 P: 25 [place]: 136 QRS: 10 QRSD: 90 T: 66 QT: 379 QTc: 443 Interpretive Statements SINUS RHYTHM Compared to ECG 05/10/2023 02:49:36 Sinus tachycardia no longer present ST (T wave) deviation no longer present Electronically Signed On 07-26-2023 9:26:50 DIRECTOR EMERGENCY by Michael Gillette M.D. [id number]
[2023-07-25 23:48] VITALS: BP 155/104; PULSE 84; RESP 18; O2SAT 99
[2023-07-26 00:58] LABS: Troponin 5 2HR 6.84 ng/L (0-10)
== END 2023-07-26 01:11 | disposition home or self-care (01) ==
PROVIDERS: Emergency Provider Emergency Medicine; PCP Family Medicine
DX: R07.9 Chest pain, unspecified (principal); E11.65 Type 2 diabetes mellitus with hyperglycemia; Z79.02 Long term (current) use of antithrombotics/antiplatelets; Z79.82 Long term (current) use of aspirin; Z79.4 Long term (current) use of insulin; Z87.891 Personal history of nicotine dependence; I10 Essential (primary) hypertension; I25.10 Atherosclerotic heart disease of native coronary artery without angina pectoris; I25.2 Old myocardial infarction; Z95.1 Presence of aortocoronary bypass graft
CPT/HCPCS: 36415; 71045; 80053; 84484; 85025; 85610; 93005; 99285

== ENCOUNTER 2023-08-02 14:49 | Outpatient (CLI) | payer MEDICAID, SELFPAY ==
--- NOTE | 2023-08-02 14:54 | USCV_ITS ---
Oralia Moralez Age: 37 Gender: F : 1985 Exam Date: 08/02/2023 16:14 Ordering Phys: Tiffany Valdez Technologist: Young Noriega [place] [facility] [place] s/p cabg BP: 118 / 68 HR: Rhythm: Sinus Technical Quality: Adequate MEASUREMENTS (Male / Female) Normal Values 2D ECHO LV Diastolic Diameter PLAX 1.4 cm 4.2 - 5.9 / 3.9 - 5.3 cm IVS Diastolic Thickness 0.7 cm 0.6 - 1.0 / 0.6 - 0.9 cm LVPW Diastolic Thickness 1.2 cm 0.6 - 1.0 / 0.6 - 0.9 cm LV Ejection Fraction MOD 2C 58.8 % IVC Diameter 1.5 cm M-MODE LA Ao Ratio MM 1.2 AV Cusp Separation MM 2.0 cm DOPPLER AV Peak Velocity 128.0 cm/s MV Area PHT 4.3 cm squared Mitral E to A Ratio 1.0 PV Peak Velocity 92.0 cm/s FINDINGS Left Ventricle Left ventricle is normal size. LV systolic function is normal with EF of 55 to 60%. No regional wall motion abnormalities are seen. Right Ventricle Grossly normal Right Atrium Normal in size Left Atrium Normal in size Mitral Valve Structurally normal mitral valve. Trace mitral regurgitation. Aortic Valve Structurally normal aortic valve. No significant stenosis or regurgitation. Tricuspid Valve Mild tricuspid regurgitation. Insufficient TR jet to calculate RVSP. Pulmonic Valve Structurally normal Pericardium Normal Aorta Normal in size IVC Appears to be normal CONCLUSIONS LV systolic function is normal with EF of 55 to 60%. Trace mitral regurgitation Mild tricuspid regurgitation Compared to prior echocardiogram from 2022, no significant changes are seen Michael Gillette MD (Electronically Signed) Final Date: 10 August 2023 11:53 S
== END 2023-08-02 14:50 | disposition home or self-care (01) ==
LOC: RAD 14:50
PROVIDERS: PCP Family Medicine; Visit Provider Nurse Practitioner Family
DX: Z95.1 Presence of aortocoronary bypass graft (principal); I25.10 Atherosclerotic heart disease of native coronary artery without angina pectoris; I07.1 Rheumatic tricuspid insufficiency
CPT/HCPCS: 93306

== ENCOUNTER 2023-09-24 02:16 | Emergency (ER) | payer MEDICAID, SELFPAY ==
--- NOTE | 2023-09-24 02:21 | XRR_ITS ---
PROCEDURE INFORMATION: Exam: XR Chest Exam date and time: 09/24/2023 2:26 AM Age: 37 years old Clinical indication: Pain; Shortness of breath; Chest pressure; Prior surgery; Surgery date: 6+ months; Surgery type: Cabg; Patient HX: Chest discomfort with SOB; Additional info: Dyspnea, TECHNIQUE: Imaging protocol: Radiologic exam of the chest. Views: 1 view. COMPARISON: CR XR chest 1V portable [id number] 07/25/2023 10:31 PM FINDINGS: Lungs: Unremarkable. No consolidation. Pleural spaces: Unremarkable. No pleural effusion. No pneumothorax. Heart/Mediastinum: Unremarkable. No cardiomegaly. Bones/joints: Status post sternotomy. Intraperitoneal space: Surgical clips appreciated in the right upper quadrant and left upper quadrant. XR/XR chest 1V portable [id number] IMPRESSION: No acute cardiopulmonary findings.
[2023-09-24 02:22] VITALS: BMI 40.3
--- NOTE | 2023-09-24 02:22 | ECG_ITS ---
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 Measurements Intervals [place] Rate: 98 P: 26 [place]: 148 QRS: 4 QRSD: 96 T: 46 QT: 341 QTc: 436 Interpretive Statements SINUS RHYTHM POSSIBLE LEFT ATRIAL ENLARGEMENT [-0.1mV P-WAVE IN V1/V2] LOW QRS VOLTAGE IN PRECORDIAL LEADS [QRS DEFLECTION < 1.0 mV IN CHEST LEADS] POSSIBLE RIGHT VENTRICULAR CONDUCTION DELAY [RSR (QR) IN V1/V2] POSSIBLE ANTERIOR MYOCARDIAL INFARCTION , PROBABLY OLD [30 ms Q WAVE IN V3/V4, OR R < 0.2 mV IN V4] INTERPRETATION BASED ON A DEFAULT AGE OF 40 YEARS Compared to ECG 07/25/2023 23:16:09 Low QRS voltage now present Myocardial infarct finding now present Electronically Signed On 09-24-2023 21:19:54 CDT by Pam Subramanian M.D. [id number]
--- NOTE | 2023-09-24 02:24 | ED_ITS ---
HPI - SOB/Dyspnea 2 General: Chief Complaint: Anxiety Stated Complaint: SOB\Heart Beating Fast Time Seen by Provider: 09/24/23 02:19 History of Present Illness: HPI Narrative: 37-year-old female presents emergency de partment stating that she feels like her heart is beating fast. She states she also feels chest tightness and shortness of breath. She does have history of significant anxiety and states she has had a very stressful night and states that she is feeling very anxious and having difficulty sleeping. She states she did have coronary artery bypass graft previously and states that her chest tightness does not feel like heart problems. Associated symptoms: Reports chest pain (Chest tightness) Review of Systems 2 General: Reports: 10 or more systems reviewed and unremarkable except in HPI and below Card: Reports: chest pain (Chest tightness) Resp: Reports: dyspnea; Denies: wheezing Psych: Reports: anxiety PFSH ED 2 PFSH: Medical History Bed bug bite Hypertension Abnormal cardiovascular stress test Chest pain CAD (coronary artery disease) STEMI (ST elevation myocardial infarction) Family history of premature CAD Nicotine dependence, cigarettes, with unspecified nicotine-induced disorders Osteoarthritis of left knee High cholesterol delivery delivered Diabetes type 2, uncontrolled Hypercholesteremia Family history of early CAD Surgical History Hx of CABG History of delivery x 2 H/O tubal ligation Family History Father Diabetes Heart disease Mother Diabetes COPD (chronic obstructive pulmonary disease) Emphysema lung Heart disease Kidney failure Arthritis Social History Smoking and tobacco/nicotine status: former use of tobacco/nicotine Second hand smoke exposure: No Substance/Drug Use: never Adopted: No Caregiver/support person: No Lives independently: Yes Housing: House Marital status: Number of children: 2 Highest education level completed: 9th Grade service: No Physical Exam 2 Narrative: EXAM NARRATIVE: Constitutional: the patient appears well nourished and of normal development. Vital signs as documented. No acute distress at present. Alert and oriented-to person, place, time and situation. Head, eyes, ears, nose, mouth, throat: Normocephalic, atraumatic. Pupils-equal, round, reactive to light. No scleral icterus. Normal-appearing external ears. Normal appearing nasal turbinates, no drainage. No obvious oral lesions, posterior oropharynx without erythema or exudates. Neck: Supple, trachea is midline, no lymphadenopathy, no jugular venous distension, thyromegaly, or carotid bruits. Carotid upstrokes are brisk bilaterally. Lungs: clear to auscultation to all lung haji. Symmetrical rise and fall of chest, no obvious signs of increased work of breathing at present. Cardiac: Regular rate and rhythm, positive S1, S2. No murmurs, rubs or gallops that I can appreciate Abdomen: Soft, non-tender to palpation, normal active bowel sounds to all quadrants. No palpable masses, no organomegaly and abdominal bruits. Extremities: 2+ pulses in the upper extremities that are equal bilaterally, 2+ pulses in the lower extremities that are equal bilaterally. Non-edematous. Moves all extremities well, sensation to all extremities are noted. Skin: Warm, dry, intact. Psych: Anxious appearing, cooperative, Course 2 Vital Signs: Vital signs: Vital Signs Pulse Rate 85 09/24/23 06:17 Respiratory Rate 16 09/24/23 06:17 Blood Pressure 127/78 09/24/23 06:17 Pulse Oximetry 98 09/24/23 06:17 Oxygen Delivery Me thod Room Air 09/24/23 06:17 MDM - SOB/Dyspnea Medical Decision Making Physical exam completed and documented, I will obtain serial cardiac enzymes, serial twelve-lead EKGs, chest x-ray, CBC, CMP, urinalysis, B-type natriuretic peptide, PT/PTT/INR, and a chest x-ray. I have reviewed previous and pertinent medical records for assist in obtaining beneficial medical information to improved the care and treatment of the patient. I discussed the normal laboratory and radiographic as well as EKG findings with the patient I discussed and provided her information regarding the [facility] to help curb her anxiety and panic attacks and I will discharge the patient at this time. Medical Records I reviewed the patient's medical records. Lab Data I reviewed the patient's lab results. 09/24/23 02:41 09/24/23 02:41 Labs/Radiology: Radiology Impressions Chest X-Ray 09/24/23 02:21 IMPRESSION: No acute cardiopulmonary findings. Laboratory Results WBC 14.03 10^3/uL (3.29-11.43) H 09/24/23 02:41 RBC 5.19 10^6/uL (3.85-5.65) 09/24/23 02:41 Hgb 15.00 g/dL (11.27-16.99) 09/24/23 02:41 Hct 44.3 % (36-47) 09/24/23 02:41 MCV 85.4 fl (85-98) 09/24/23 02:41 MCH 28.9 pg (27-33) 09/24/23 02:41 MCHC 33.9 g/dL (30-55) 09/24/23 02:41 RDW 12.9 % (12.1-15.1) 09/24/23 02:41 Plt Count 368 10^3/cmm (157-399) 09/24/23 02:41 MPV 9.0 fL (7.4-10.4) 09/24/23 02:41 Neut % (Auto) 67.6 % 09/24/23 02:41 Lymph % (Auto) 23.7 % 09/24/23 02:41 [place] % (Auto) 6.3 % 09/24/23 02:41 Eos % (Auto) 1.6 % 09/24/23 02:41 Baso % (Auto) 0.4 % 09/24/23 02:41 Neut # (Auto) 9.49 10^3/uL (1.8-7.7) H 09/24/23 02:41 Lymph # (Auto) 3.3 10^3/uL (0.8-4.8) 09/24/23 02:41 [place] # (Auto) 0.9 10^3/uL (0.2-0.9) 09/24/23 02:41 Eos # (Auto) 0.2 10^3/uL (0.0-0.8) 09/24/23 02:41 Baso # (Auto) 0.1 10^3/uL (0.0-0.1) 09/24/23 02:41 Nucleated RBC % (auto) 0 % 09/24/23 02:41 Nucleated RBCs # 0.0 /100WBC 09/24/23 02:41 PT 13.10 SECONDS (12.1-14.9) 09/24/23 02:41 INR 0.96 (0.8-1.2) 09/24/23 02:41 Sodium 136 mmol/L (136-145) 09/24/23 02:41 Potassium 3.6 mmol/L (3.5-5.1) 09/24/23 02:41 Chloride 100 mmol/L (98-107) 09/24/23 02:41 Carbon Dioxide 21 mmol/L (22-29) L 09/24/23 02:41 Anion Gap 18.6 (5-19) 09/24/23 02:41 BUN 9 mg/dL (6-20) 09/24/23 02:41 Creatinine 0.4 mg/dL (0.5-0.9) L 09/24/23 02:41 GFR Calculation 181.6 mL/min (90-130) H 09/24/23 02:41 Glucose 198 mg/dL (65-115) H 09/24/23 02:41 Calculated Osmolality 286 mOsm/kg (285-295) 09/24/23 02:41 Calcium 9.6 mg/dL (8.5-10.5) 09/24/23 02:41 Total Bilirubin 0.3 mg/dL (0.15-1.2) 09/24/23 02:41 AST 17 U/L (0-32) 09/24/23 02:41 ALT 24 U/L (0-33) 09/24/23 02:41 Alkaline Phosphatase 83 U/L (35-105) 09/24/23 02:41 Troponin T Baseline < 6 ng/L (0-10) 09/24/23 02:41 Troponin T 120 Minute 6.19 ng/L (0-10) 09/24/23 04:30 Delta Troponin T 0.84098 ABS# (0-10) 09/24/23 04:30 NT-Pro-B Natriuret Pep 50 pg/mL (0-125) 09/24/23 02:41 Total Protein 7.4 g/dL (6.6-8.7) 09/24/23 02:41 Albumin 4.3 g/dL (3.5-5.2) 09/24/23 02:41 Globulin 3.1 g/dL (1.3-4.6) 09/24/23 02:41 All radiology interpretation(s) finalized by discharge EKG Data EKG 1: Interpretation: Twelve-lead EKG obtained at 0 225 and reviewed at 0 225 demonstrates sinus rhythm, ventricular rate 98, ND interval 148, QRS duration 96, QT 341, QTc [address] elevation or depression at present Discharge Plan Discharge Patient Disposition: Home Clinical Impression: Anxiety, Panic attack Condition: Stable Prescriptions: No Action nitroglycerin [Nitrostat] 0.4 mg tablet, sublingual 0.4 mg sublingual Q5M PRN (Reason: chest pain) Qty: 25 1RF Rx Instructions: do not exceed 3 doses per episode spironolactone 50 mg tablet See Rx Instructions .ROUTE .COMPLEX Qty: 90 1RF Dose Instruction: TAKE 1 TABLET BY MOUTH EVERY DAY Rx Instructions: TAKE 1 TABLET BY MOUTH EVERY DAY (DME) Dexcom G7 Sensor Device See Rx Instructions .ROUTE .MEDSUPPLY Qty: 6 0RF Rx Instructions: Change every 10days (DME) Dexcom G7 Hourly Shift Manager Misc See Rx Instructions .Route Qty: 1 0RF Rx Instructions: As directed atorvastatin 80 mg tablet 80 mg PO DAILY Qty: 90 3RF (DME) blood-glucose meter [OneTouch Ultra2 Meter] Kit See Rx Instructions .Route Qty: 1 0RF Rx Instructions: check sugar 4-6 times a day (DME) lancets [OneTouch UltraSoft Lancets] Misc See Rx Instructions .Route Qty: 200 1RF Rx Instructions: As directed Jardiance 10 mg tablet See Rx Instructions .ROUTE .COMPLEX Qty: 90 1RF Dose Instruction: TAKE 1 TABLET BY MOUTH IN THE MORNING Rx Instructions: TAKE 1 TABLET BY MOUTH IN THE MORNING Novolog FlexPen U-100 Insulin 100 unit/mL (3 mL) insulin pen See Rx Instructions .ROUTE .COMPLEX Qty: 30 0RF Dose Instruction: INJECT DIRECTED SUBCUTANEOUSLY 3 TIMES DAILY AFTER MEALS BASED ON SLIDING SCALE, MAX 40 UNITS/DAY Rx Instructions: INJECT DIRECTED SUBCUTANEOUSLY 3 TIMES DAILY AFTER MEALS BASED ON SLIDING SCALE, MAX 40 UNITS/DAY aspirin 81 mg tablet,delayed release (DR/EC) See Rx Instructions .ROUTE .COMPLEX Qty: 90 1RF Dose Instruction: TAKE 1 TABLET BY MOUTH EVERY DAY Rx Instructions: TAKE 1 TABLET BY MOUTH EVERY DAY (DME) pen needle, diabetic [BD Ultra-Fine Short Pen Needle] 31 gauge x 5/16 needle See Rx Instructions .ROUTE .MEDSUPPLY Qty: 200 0RF Rx Instructions: As directed insulin glargine [Lantus Solostar U-100 Insulin] 100 unit/mL (3 mL) insulin pen See Rx Instructions .ROUTE .COMPLEX Qty: 15 0RF Dose Instruction: INJECT 40 UNITS SUBCUTANEOUSLY DAILY FOR 60 DAYS Rx Instructions: INJECT 40 UNITS SUBCUTANEOUSLY DAILY FOR 60 DAYS carvedilol 6.25 mg tablet 6.25 mg PO BID Qty: 180 0RF clopidogrel 75 mg tablet See Rx Instructions .ROUTE .COMPLEX Qty: 30 2RF Hold Instructions: Resume on 07/04/23. Dose Instruction: TAKE 1 TABLET BY MOUTH EVERY DAY Rx Instructions: TAKE 1 TABLET BY MOUTH EVERY DAY (DME) OneTouch Ultra Test Strip See Rx Instructions .ROUTE .COMPLEX Qty: 400 1RF Dose Instruction: CHECK SUGAR 4-6 TIMES DAILY Rx Instructions: CHECK SUGAR 4-6 TIMES DAILY meloxicam 15 mg tablet 15 mg PO DAILY Hold Instructions: Resume on 07/03/23. Discharge Orders: Discharge ED (Routine); Ordered 09/24/23 Ordered By: Edgardo Saez Referrals: Kasey Naqvi DO [Primary Care Provider] - Discharge Diet: Usual diet Discharge Activity: Resume usual activity Patient Instructions: Opioid Safety, Pain Management Activity Restrictions/Additional Instructions: Activity Restrictions/Additional Instructions: Thank you for choosing [facility] for your healthcare needs today. Please realize that you were seen in the Emergency Department and that we are providing you with an emergency medical screening exam and this may not be a complete and all inclusive of all the testing and or medical work-up that you may need to determine your ailment or severity of your illness. It is very important that you follow-up as instructed with your Primary care provider or Specialist for additional evaluation and to discuss your medical treatment plan. Coding Level of Care Code ED Loss Prevention Consultant for Marii Alegria
[2023-09-24 02:47] LABS: Basophils # 0.1 10^3/uL (0.0-0.1); Basophils % 0.4 %; Eosinophils # 0.2 10^3/uL (0.0-0.8); Eosinophils % 1.6 %; Hematocrit 44.3 % (36-47); Lymphocytes # 3.3 10^3/uL (0.8-4.8); Lymphocytes % 23.7 %; Mean Corpuscular HGB Conc 33.9 g/dL (30-55); Mean Corpuscular Hemoglobin 28.9 pg (27-33); Mean Corpuscular Volume 85.4 fl (85-98); Monocytes # 0.9 10^3/uL (0.2-0.9); Monocytes % 6.3 %; Neutrophils # 9.49 10^3/uL (1.8-7.7); Neutrophils % 67.6 %; Nucleated Red Blood Cells % 0 %; Platelet Count 368 10^3/cmm (157-399); Red Blood Count 5.19 10^6/uL (3.85-5.65); Red Cell Distribution Width 12.9 % (12.1-15.1); White Blood Count 14.03 10^3/uL (3.29-11.43)
[2023-09-24 03:00] LABS: INR 0.96 (0.8-1.2)
[2023-09-24 03:09] LABS: Troponin(5th) Baseline < 6 ng/L (0-10)
[2023-09-24 03:14] LABS: Alanine Aminotransferase 24 U/L (0-33); Albumin Level 4.3 g/dL (3.5-5.2); Alkaline Phosphatase 83 U/L (35-105); Anion Gap 18.6 (5-19); Aspartate Amino Transferase 17 U/L (0-32); Blood Urea Nitrogen 9 mg/dL (6-20); Calcium 9.6 mg/dL (8.5-10.5); Carbon Dioxide 21 mmol/L (22-29); Chloride 100 mmol/L (98-107); Creatinine Clr Calc Pharmacy 250.8272; Globulin 3.1 g/dL (1.3-4.6); Glomerular Filtration Rate 181.6 mL/min (90-130); Glucose 198 mg/dL (65-115); Osmolality Calculated 286 mOsm/kg (285-295); Potassium 3.6 mmol/L (3.5-5.1); Sodium 136 mmol/L (136-145); Total Bilirubin 0.3 mg/dL (0.15-1.2); Total Protein 7.4 g/dL (6.6-8.7)
[2023-09-24 03:24] LABS: NT Pro B Type Natriuretic Pept 50 pg/mL (0-125)
[2023-09-24 04:56] LABS: Troponin 5 2HR 6.19 ng/L (0-10); Troponin 5 2HR Delta 0.19001 ABS# (0-10)
[2023-09-24 06:17] VITALS: BP 127/78; PULSE 85; RESP 16; O2SAT 98
== END 2023-09-24 07:32 | disposition home or self-care (01) ==
PROVIDERS: Emergency Provider Internal Medicine; PCP Family Medicine
DX: F41.9 Anxiety disorder, unspecified (principal); F41.0 Panic disorder [episodic paroxysmal anxiety]; Z79.82 Long term (current) use of aspirin; Z79.4 Long term (current) use of insulin; Z79.02 Long term (current) use of antithrombotics/antiplatelets; Z95.1 Presence of aortocoronary bypass graft; I10 Essential (primary) hypertension; I25.10 Atherosclerotic heart disease of native coronary artery without angina pectoris; I25.2 Old myocardial infarction; E11.9 Type 2 diabetes mellitus without complications
CPT/HCPCS: 71045; 80053; 83880; 84484; 85025; 85610; 93005; 99285

== ENCOUNTER 2023-09-26 21:34 | Emergency (ER) | payer MEDICAID, SELFPAY ==
--- NOTE | 2023-09-26 21:36 | XRR_ITS ---
PROCEDURE INFORMATION: Exam: XR Chest Exam date and time: 09/26/2023 9:45 PM Age: 37 years old Clinical indication: Chest pressure; Prior surgery; Surgery date: 6+ months; Surgery type: Cabg; Patient HX: C/O chest pain TECHNIQUE: Imaging protocol: Radiologic exam of the chest. Views: 1 view. COMPARISON: CR (CHEST, ) 09/24/2023 2:26 AM FINDINGS: Lungs: Visualized portions of the lungs are clear. Pleural spaces: Unremarkable. No pleural effusion. No pneumothorax. Heart/Mediastinum: Heart is within normal limits of size. Bones/joints: Sternotomy wires and mediastinal surgical clips are present, consistent with coronary arterial bypass grafting. XR/XR chest 1V portable [id number] IMPRESSION: No acute infiltrate. No significant change.
[2023-09-26 21:37] VITALS: BP 138/100; PULSE 86; RESP 18; TEMP 36.9; O2SAT 99
--- NOTE | 2023-09-26 21:40 | ECG_ITS ---
[facility] Test Date: 2023-09-26 Pat Name: Oralia Moralez Department: Room: Gender: Female Cap Sizer: : 1985 Requested By: Leander Rodríguez Order Number: [id number] Maki MD: Michael Gillette M.D. Measurements Intervals [place] Rate: 75 P: 37 [place]: 147 QRS: 56 QRSD: 96 T: 12 QT: 374 QTc: 420 Interpretive Statements SINUS RHYTHM POSSIBLE ANTERIOR MYOCARDIAL INFARCTION , OF INDETERMINATE AGE [30 ms Q WAVE IN V3/V4, OR R < 0.2 mV IN V4] Compared to ECG 09/24/2023 02:25:51 No significant changes Electronically Signed On 09-27-2023 17:02:39 CDT by Michael Gillette M.D. [id number] f
[2023-09-26 22:27] LABS: Basophils % 0.4 %; Eosinophils # 0.1 10^3/uL (0.0-0.8); Eosinophils % 1.7 %; Hematocrit 46.5 % (36-47); Lymphocytes # 2.2 10^3/uL (0.8-4.8); Lymphocytes % 30.4 %; Mean Corpuscular HGB Conc 32.7 g/dL (30-55); Mean Corpuscular Hemoglobin 28.7 pg (27-33); Mean Corpuscular Volume 87.9 fl (85-98); Mean Platelet Volume 9.1 fL (7.4-10.4); Monocytes # 0.6 10^3/uL (0.2-0.9); Monocytes % 8.8 %; Neutrophils # 4.13 10^3/uL (1.8-7.7); Neutrophils % 58.4 %; Nucleated Red Blood Cells % 0 %; Platelet Count 311 10^3/cmm (157-399); Red Blood Count 5.29 10^6/uL (3.85-5.65); White Blood Count 7.07 10^3/uL (3.29-11.43)
[2023-09-26] MEDS: BuSPIRONE 10 mg Tablet PO (22:40)
[2023-09-26 22:44] LABS: Troponin(5th) Baseline < 6 ng/L (0-10)
[2023-09-26 22:45] LABS: Alanine Aminotransferase 26 U/L (0-33); Albumin Level 4.5 g/dL (3.5-5.2); Alkaline Phosphatase 84 U/L (35-105); Anion Gap 16.8 (5-19); Aspartate Amino Transferase 17 U/L (0-32); Blood Urea Nitrogen 8 mg/dL (6-20); Calcium 9.6 mg/dL (8.5-10.5); Carbon Dioxide 22 mmol/L (22-29); Chloride 102 mmol/L (98-107); Creatinine Clr Calc Pharmacy 334.4363; Globulin 2.9 g/dL (1.3-4.6); Glomerular Filtration Rate 253.2 mL/min (90-130); Glucose 202 mg/dL (65-115); Osmolality Calculated 288 mOsm/kg (285-295); Potassium 3.8 mmol/L (3.5-5.1); Sodium 137 mmol/L (136-145); Total Bilirubin 0.3 mg/dL (0.15-1.2); Total Protein 7.4 g/dL (6.6-8.7)
[2023-09-26 22:56] VITALS: BP 128/64; PULSE 85; RESP 22; O2SAT 99
--- NOTE | 2023-09-26 23:16 | ED_ITS ---
HPI - Chest Pain 2 General: Chief Complaint: Chest Pain Stated Complaint: Chest pain/ Anxiety Time Seen by Provider: 09/26/23 21:36 History of Present Illness: Patient presents to the ER with complaints of left-sided numbness in her head and short of breath. Patient says she also been having intermittent chest pain off and on since Saturday. Patient was seen in this ER for the same thing on Saturday. Patient was diagnosed with anxiety and is try to get in with her family practice doctor but is unable to do that. Patient significant other says patient has these episodes anytime the TV is really loud or people are yelling and he think she has anxiety as well. Patient does have a cardiac history with a CABG previously. Review of Systems 2 General: Reports: 10 or more systems reviewed and unremarkable except in HPI and below PFSH ED 2 PFSH: Medical History Bed bug bite Hypertension Abnormal cardiovascular stress test Chest pain CAD (coronary artery disease) STEMI (ST elevation myocardial infarction) Family history of premature CAD Nicotine dependence, cigarettes, with unspecified nicotine-induced disorders Osteoarthritis of left knee High cholesterol delivery delivered Diabetes type 2, uncontrolled Hypercholesteremia Family history of early CAD Surgical History Hx of CABG History of delivery x 2 H/O tubal ligation Family History Father Diabetes Heart disease Mother Diabetes COPD (chronic obstructive pulmonary disease) Emphysema lung Heart disease Kidney failure Arthritis Social History Smoking and tobacco/nicotine status: former use of tobacco/nicotine Second hand smoke exposure: No Substance/Drug Use: never Adopted: No Caregiver/support person: No Lives independently: Yes Housing: House Marital status: Number of children: 2 Highest education level completed: 9th Grade service: No Physical Exam 2 Const: COMMON NORMALS: no acute distress, average body habitus, patient oriented x3, no limitations, healthy appearing, alert and well nourished HENMT: COMMON NORMALS: normocephalic, atraumatic, hearing grossly normal bilaterally, external ears normal, Normal external nose present, moist oral mucous membranes and oropharynx normal HEAD & SCALP: normocephalic and atraumatic NOSE: Normal external nose present EXTERNAL EAR: Yes external ears normal Neck/C-Spine: COMMON NORMALS: full ROM, no lymphadenopathy, supple, no meningeal signs, no JVD and Thyroid normal THYROID: Thyroid normal Chest: COMMONS NORMALS: normal inspection of the chest and normal palpation of entire chest wall Resp: COMMON NORMALS: normal respiratory effort, No retractions, No use of accessory muscles and clear to auscultation bilaterally AUSCULTATION: clear to auscultation bilaterally Cardio: COMMON NORMALS: no JVD, regular rate, regular rhythm, S1 normal heart sound present, S2 normal heart sound present, No gallops present (Cardio), No clicks present (Cardio), No murmurs present (Cardio) and No rub (Cardio) R ATE: regular rate RHYTHM: regular rhythm HEART SOUNDS: S1 normal heart sound present and S2 normal heart sound present GI: COMMON NORMALS: Normal to inspection, nondistended, normoactive bowel sounds present, Soft to palpation, No hepatosplenomegaly present and no masses PALPATION: Yes Soft to palpation and Yes No hepatosplenomegaly present Neuro: COMMON NORMALS: patient oriented x3 SENSORIUM/ORIENTATION: Yes alert MENINGEAL SIGNS: Yes no meningeal signs Course 2 Vital Signs: Vital signs: Vital Signs Temperature 98.5 F 09/26/23 21:37 Pulse Rate 63 09/27/23 00:58 Respiratory Rate 16 09/27/23 00:58 Blood Pressure 124/67 09/27/23 00:58 Pulse Oximetry 97 09/27/23 00:58 MDM - Chest Pain Medical Decision Making Patient presented with chest pain and anxiety. Patient was worked up in a standard chest pain fashion. Patient given BuSpar 5 mg for her anxiety. Once we have lab work back anticipate patient be discharged home with a prescription for BuSpar until she can follow-up with her PCP. Differential Diagnosis Unlikely acute massive pulmonary embolism, acute respiratory failure, acute myocardial infarction, cardiac arrest or sudden cardiac Medical Records I reviewed the patient's medical records. Lab Data I reviewed the patient's lab results. 09/26/23 22:18 09/26/23 22:18 Radiology Impressions Chest X-Ray 09/26/23 21:36 IMPRESSION: No acute infiltrate. No significant change. Laboratory Results WBC 7.07 10^3/uL (3.29-11.43) 09/26/23 22:18 RBC 5.29 10^6/uL (3.85-5.65) 09/26/23 22:18 Hgb 15.20 g/dL (11.27-16.99) 09/26/23 22:18 Hct 46.5 % (36-47) 09/26/23 22:18 MCV 87.9 fl (85-98) 09/26/23 22:18 MCH 28.7 pg (27-33) 09/26/23 22:18 MCHC 32.7 g/dL (30-55) 09/26/23 22:18 RDW 13.0 % (12.1-15.1) 09/26/23:18 Plt Count 311 10^3/cmm (157-399) 09/26/23 22:18 MPV 9.1 fL (7.4-10.4) 09/26/23 22:18 Neut % (Auto) 58.4 % 09/26/23 22:18 Lymph % (Auto) 30.4 % 09/26/23 22:18 [place] % (Auto) 8.8 % 09/26/23 22:18 Eos % (Auto) 1.7 % 09/26/23:18 Baso % (Auto) 0.4 % 09/26/23:18 Neut # (Auto) 4.13 10^3/uL (1.8-7.7) 09/26/23 22:18 Lymph # (Auto) 2.2 10^3/uL (0.8-4.8) 09/26/23:18 [place] # (Auto) 0.6 10^3/uL (0.2-0.9) 09/26/23 22:18 Eos # (Auto) 0.1 10^3/uL (0.0-0.8) 09/26/23:18 Baso # (Auto) 0.0 10^3/uL (0.0-0.1) 09/26/23:18 Nucleated RBC % (auto) 0 % 09/26/23:18 Nucleated RBCs # 0.0 /100WBC 09/26/23 22:18 Sodium 137 mmol/L (136-145) 09/26/23 22:18 Potassium 3.8 mmol/L (3.5-5.1) 09/26/23 22:18 Chloride 102 mmol/L (98-107) 09/26/23 22:18 Carbon Dioxide 22 mmol/L (22-29) 09/26/23 22:18 Anion Gap 16.8 (5-19) 09/26/23 22:18 BUN 8 mg/dL (6-20) 09/26/23 22:18 Creatinine 0.3 mg/dL (0.5-0.9) L 09/26/23 22:18 GFR Calculation 253.2 mL/min (90-130) H 09/26/23 22:18 Glucose 202 mg/dL (65-115) H 09/26/23 22:18 Calculated Osmolality 288 mOsm/kg (285-295) 09/26/23 22:18 Calcium 9.6 mg/dL (8.5-10.5) 09/26/23 22:18 Total Bilirubin 0.3 mg/dL (0.15-1.2) 09/26/23 22:18 AST 17 U/L (0-32) 09/26/23 22:18 ALT 26 U/L (0-33) 09/26/23 22:18 Alkaline Phosphatase 84 U/L (35-105) 09/26/23 22:18 Troponin T Baseline < 6 ng/L (0-10) 09/26/23 22:18 Troponin T 120 Minute 7.94 ng/L (0-10) 09/27/23 00:23 Delta Troponin T 1.94234 ABS# (0-10) 09/27/23 00:23 Total Protein 7.4 g/dL (6.6-8.7) 09/26/23 22:18 Albumin 4.5 g/dL (3.5-5.2) 09/26/23 22:18 Globulin 2.9 g/dL (1.3-4.6) 09/26/23 22:18 All radiology interpretation(s) finalized by discharge Discharge Plan Discharge Patient Disposition: Home Clinical Impression: Anxiety Condition: Stable Prescriptions: New buspirone 5 mg tablet 5 mg PO TID PRN (Reason: anxiety) Qty: 14 0RF No Action nitroglycerin [Nitrostat] 0.4 mg tablet, sublingual 0.4 mg sublingual Q5M PRN (Reason: chest pain) Qty: 25 1RF Rx Instructions: do not exceed 3 doses per episode spironolactone 50 mg tablet See Rx Instructions .ROUTE .COMPLEX Qty: 90 1RF Dose Instruction: TAKE 1 TABLET BY MOUTH EVERY DAY Rx Instructions: TAKE 1 TABLET BY MOUTH EVERY DAY (DME) Dexcom G7 Sensor Device See Rx Instructions .ROUTE .MEDSUPPLY Qty: 6 0RF Rx Instructions: Change every 10days (DME) Dexcom G7 Hospice Nurse Practitioner Misc See Rx Instructions .Route Qty: 1 0RF Rx Instructions: As directed atorvastatin 80 mg tablet 80 mg PO DAILY Qty: 90 3RF (DME) blood-glucose meter [OneTouch Ultra2 Meter] Kit See Rx Instructions .Route Qty: 1 0RF Rx Instructions: check sugar 4-6 times a day (DME) lancets [OneTouch UltraSoft Lancets] Misc See Rx Instructions .Route Qty: 200 1RF Rx Instructions: As directed Jardiance 10 mg tablet See Rx Instructions .ROUTE .COMPLEX Qty: 90 1RF Dose Instruction: TAKE 1 TABLET BY MOUTH IN THE MORNING Rx Instructions: TAKE 1 TABLET BY MOUTH IN THE MORNING Novolog FlexPen U-100 Insulin 100 unit/mL (3 mL) insulin pen See Rx Instructions .ROUTE .COMPLEX Qty: 30 0RF Dose Instruction: INJECT DIRECTED SUBCUTANEOUSLY 3 TIMES DAILY AFTER MEALS BASED ON SLIDING SCALE, MAX 40 UNITS/DAY Rx Instructions: INJECT DIRECTED SUBCUTANEOUSLY 3 TIMES DAILY AFTER MEALS BASED ON SLIDING SCALE, MAX 40 UNITS/DAY aspirin 81 mg tablet,delayed release (DR/EC) See Rx Instructions .ROUTE .COMPLEX Qty: 90 1RF Dose Instruction: TAKE 1 TABLET BY MOUTH EVERY DAY Rx Instructions: TAKE 1 TABLET BY MOUTH EVERY DAY (DME) pen needle, diabetic [BD Ultra-Fine Short Pen Needle] 31 gauge x 5/16 needle See Rx Instructions .ROUTE .MEDSUPPLY Qty: 200 0RF Rx Instructions: As directed insulin glargine [Lantus Solostar U-100 Insulin] 100 unit/mL (3 mL) insulin pen See Rx Instructions .ROUTE .COMPLEX Qty: 15 0RF Dose Instruction: INJECT 40 UNITS SUBCUTANEOUSLY DAILY FOR 60 DAYS Rx Instructions: INJECT 40 UNITS SUBCUTANEOUSLY DAILY FOR 60 DAYS carvedilol 6.25 mg tablet 6.25 mg PO BID Qty: 180 0RF clopidogrel 75 mg tablet See Rx Instructions .ROUTE .COMPLEX Qty: 30 2RF Hold Instructions: Resume on 07/04/23. Dose Instruction: TAKE 1 TABLET BY MOUTH EVERY DAY Rx Instructions: TAKE 1 TABLET BY MOUTH EVERY DAY (DME) OneTouch Ultra Test Strip See Rx Instructions .ROUTE .COMPLEX Qty: 400 1RF Dose Instruction: CHECK SUGAR 4-6 TIMES DAILY Rx Instructions: CHECK SUGAR 4-6 TIMES DAILY meloxicam 15 mg tablet 15 mg PO DAILY Hold Instructions: Resume on 07/03/23. Discharge Orders: Discharge ED (Routine); Ordered 09/27/23 Ordered By: Leander Rodríguez Referrals: Kasey Naqvi DO [Primary Care Provider] - 1 week Patient Instructions: Anxiety (ED) Activity Restrictions/Additional Instructions: Your evaluation and workup in ER did not reveal any acute coronary cause of your chest pain. Is thought to be more anxiety related. You will be given a short course of BuSpar for your anxiety intake and follow-up with your primary care physician for further evaluation and treatment. Coding Level of Care Code ED Primer Waterproofing Machine Adjuster for Marii Alegria
[2023-09-26 23:17] VITALS: BP 137/83; PULSE 66; RESP 19; O2SAT 97
[2023-09-26 23:30] VITALS: BP 107/71; PULSE 61; RESP 22; O2SAT 97
--- NOTE | 2023-09-26 23:36 | ECG_ITS ---
[facility] Test Date: 2023-09-27 Pat Name: Oralia Moralez Department: Room: Gender: Female Neurology Physician: : 1985 Requested By: Leander Rodríguez Order Number: [id number] Maki MD: Michael Gillette M.D. Measurements Intervals [place] Rate: 71 P: 26 [place]: 169 QRS: 6 QRSD: 97 T: 45 QT: 397 QTc: 433 Interpretive Statements SINUS RHYTHM Compared to ECG 09/26/2023 21:40:08 Myocardial infarct finding no longer present Electronically Signed On 09-27-2023 17:08:12 CDT by Michael Gillette M.D. [id number]
[2023-09-27 00:15] VITALS: BP 102/62; PULSE 70; RESP 22; O2SAT 95
[2023-09-27 00:41] VITALS: BP 124/67; PULSE 68; RESP 16; O2SAT 99
[2023-09-27 00:46] LABS: Troponin 5 2HR 7.94 ng/L (0-10); Troponin 5 2HR Delta 1.94001 ABS# (0-10)
[2023-09-27 00:58] VITALS: BP 124/67; PULSE 63; RESP 16; O2SAT 97
== END 2023-09-27 00:59 | disposition home or self-care (01) ==
PROVIDERS: Emergency Provider Emergency Medicine; PCP Family Medicine
DX: F41.9 Anxiety disorder, unspecified (principal); Z79.82 Long term (current) use of aspirin; Z79.02 Long term (current) use of antithrombotics/antiplatelets; Z79.4 Long term (current) use of insulin; Z87.891 Personal history of nicotine dependence; I10 Essential (primary) hypertension; I25.10 Atherosclerotic heart disease of native coronary artery without angina pectoris; I25.2 Old myocardial infarction; E11.9 Type 2 diabetes mellitus without complications; Z95.1 Presence of aortocoronary bypass graft
CPT/HCPCS: 36415; 71045; 80053; 84484; 85025; 93005; 99285

== ENCOUNTER → 2023-10-15 12:19 | Outpatient (BNVA) | payer MEDICAID, SELFPAY | PROVIDERS: PCP Family Medicine; Visit Provider Internal Medicine | DX: I25.10 Atherosclerotic heart disease of native coronary artery without angina pectoris (principal); R07.9 Chest pain, unspecified; I10 Essential (primary) hypertension; E78.00 Pure hypercholesterolemia, unspecified; E11.65 Type 2 diabetes mellitus with hyperglycemia; Z79.4 Long term (current) use of insulin; Z87.891 Personal history of nicotine dependence | CPT/HCPCS: 99214 ==

== ENCOUNTER 2023-10-15 21:54 | Emergency (ER) | payer MEDICAID, SELFPAY ==
[2023-10-15 21:55] VITALS: BP 137/87; PULSE 83; RESP 16; TEMP 36.6; O2SAT 98; BMI 37.0
--- NOTE | 2023-10-15 21:55 | XRR_ITS ---
PROCEDURE INFORMATION: Exam: XR Chest Exam date and time: 10/15/2023 10:06 PM Age: 37 years old Clinical indication: Pain; Chest pressure; Prior surgery; Surgery date: 6+ months; Surgery type: Cabg; Additional info: Cp TECHNIQUE: Imaging protocol: Radiologic exam of the chest. Views: 1 view. COMPARISON: CR (CHEST, ) 09/26/2023 9:45 PM FINDINGS: Tubes, catheters and devices: Clips over right upper quadrant abdomen. Lungs: Shallow inspiration with low lung volumes. No new focal infiltrates seen of the lungs. Pleural spaces: No large or obvious pneumothorax nor pleural effusion seen. Heart/Mediastinum: Evidence of coronary artery stent and/or calcification. Bones/joints: Prior sternal splitting procedure. XR/XR chest 1V portable [id number] IMPRESSION: No acute findings seen of the chest.
--- NOTE | 2023-10-15 21:58 | ECG_ITS ---
[facility] Test Date: 2023-10-15 Pat Name: Oralia Moralez Department: Room: Gender: Female Risk Management Manager: : 1985 Requested By: Caro Cheatham Order Number: [id number] Maki MD: Michael Gillette M.D. Measurements Intervals [place] Rate: 72 P: 34 OR: 160 QRS: 10 QRSD: 105 T: 53 QT: 369 QTc: 404 Interpretive Statements SINUS RHYTHM POSSIBLE ANTERIOR MYOCARDIAL INFARCTION , OF INDETERMINATE AGE [30 ms Q WAVE IN V3/V4, OR R < 0.2 mV IN V4] Compared to ECG 09/27/2023 00:04:33 Myocardial infarct finding now present Electronically Signed On 10-16-2023 16:50:55 CDT by Michael Gillette M.D. [id number]
--- NOTE | 2023-10-15 22:16 | ED_ITS ---
HPI - Chest Pain 2 General: Chief Complaint: Chest Pain Stated Complaint: CP Time Seen by Provider: 10/15/23 21:56 Source: patient and EMS Mode of arrival: EMS Limitations: no limitations History of Present Illness: 37-year-old female is well-known to ER s malorie started having some chest pain roughly 2 hours ago she states that lasted just a few minutes is since resolved she does have a history of coronary disease has a long history anxiety as well she denies any cough fever shortness of breath denies any nausea or diaphoresis. Associated symptoms: Deny abdominal pain, dyspnea, fever(s), nausea or vomiting Review of Systems 2 Const: Denies: fever(s), chills, body aches or change in appetite ENMT: Denies: throat pain or dental pain Card: Reports: chest pain Resp: Denies: dyspnea GI: Denies: abdominal pain, nausea, vomiting or diarrhea : Denies: dysuria Musc: Denies: neck pain or back pain Skin/Breast: Denies: rash Neuro: Denies: headache(s) PFSH ED 2 PFSH: Medical History Bed bug bite Hypertension Abnormal cardiovascular stress test Chest pain CAD (coronary artery disease) STEMI (ST elevation myocardial infarction) Family history of premature CAD Nicotine dependence, cigarettes, with unspecified nicotine-induced disorders Osteoarthritis of left knee High cholesterol delivery delivered Diabetes type 2, uncontrolled Hypercholesteremia Family history of early CAD Surgical History Hx of CABG History of delivery x 2 H/O tubal ligation Family History Father Diabetes Heart disease Mother Diabetes COPD (chronic obstructive pulmonary disease) Emphysema lung Heart disease Kidney failure Arthritis Social History Smoking and tobacco/nicotine status: former use of tobacco/nicotine Second hand smoke exposure: No Substance/Drug Use: never Adopted: No Caregiver/support person: No Lives independently: Yes Housing: House Marital status: Number of children: 2 Highest education level completed: 9th Grade service: No Female Reproductive History: Date of last menstrual period: 10/15/23 Physical Exam 2 Const: COMMON NORMALS: no acute distress, patient oriented x3 and healthy appearing HENMT: COMMON NORMALS: normocephalic and atraumatic HEAD & SCALP: n ormocephalic and atraumatic Eye: COMMON NORMALS: Equal, round and reactive pupils present and EOMs intact bilaterally PUPIL: Yes Equal, round and reactive pupils present Neck/C-Spine: COMMON NORMALS: full ROM and supple Chest: COMMONS NORMALS: normal inspection of the chest Resp: COMMON NORMALS: normal respiratory effort, No retractions, No use of accessory muscles and clear to auscultation bilaterally AUSCULTATION: clear to auscultation bilaterally Cardio: COMMON NORMALS: regular rate, regular rhythm and No murmurs present (Cardio) RATE: regular rate RHYTHM: regular rhythm Extremity: COMMON NORMALS: normal to inspection and full ROM Neuro: COMMON NORMALS: patient oriented x3, moves all extremities and no focal motor deficits Psych: COMMON NORMALS: mental status grossly normal, Normal thought process present and cooperative THOUGHT PROCESS: Normal thought process present Skin: COMMON NORMALS: no rashes or lesions noted and no wounds GENERAL SKIN EXAM: no rashes or lesions noted Course 2 Vital Signs: Vital signs: Vital Signs Temperature 97.9 F 10/15/23 21:55 Pulse Rate 73 10/16/23 01:11 Respiratory Rate 16 10/16/23 01:11 Blood Pressure 122/80 10/16/23 01:11 Pulse Oximetry 98 10/16/23 01:11 MDM - Chest Pain Medical Decision Making Patient presents chest pain is atypical in nature she is been pain-free here troponins here are negative no signs of ACS or pulmonary embolism she stable for discharge she is follow-up with PCP return if worsening. Medical Records I reviewed the patient's medical records. Lab Data I reviewed the patient's lab results. 10/15/23 22:23 10/15/23 22:23 Radiology Impressions Chest X-Ray 10/15/23 21:55 IMPRESSION: No acute findings seen of the chest. Laboratory Results WBC 11.54 10^3/uL (3.29-11.43) H 10/15/23 22:23 RBC 4.79 10^6/uL (3.85-5.65) 10/15/23 22:23 Hgb 14.10 g/dL (11.27-16.99) 10/15/23 22:23 Hct 43.1 % (36-47) 10/15/23 22:23 MCV 90.0 fl (85-98) 10/15/23 22:23 MCH 29.4 pg (27-33) 10/15/23 22:23 MCHC 32.7 g/dL (30-55) 10/15/23 22:23 RDW 13.1 % (12.1-15.1) 10/15/23 22:23 Plt Count 311 10^3/cmm (157-399) 10/15/23 22:23 MPV 9.2 fL (7.4-10.4) 10/15/23 22:23 Neut % (Auto) 66.7 % 10/15/23 22:23 Lymph % (Auto) 25.4 % 10/15/23 22:23 Hutchinson % (Auto) 5.4 % 10/15/23 22:23 Eos % (Auto) 1.6 % 10/15/23 22:23 Baso % (Auto) 0.6 % 10/15/23 22:23 Neut # (Auto) 7.70 10^3/uL (1.8-7.7) 10/15/23 22:23 Lymph # (Auto) 2.9 10^3/uL (0.8-4.8) 10/15/23 22:23 Hutchinson # (Auto) 0.6 10^3/uL (0.2-0.9) 10/15/23 22:23 Eos # (Auto) 0.2 10^3/uL (0.0-0.8) 10/15/23 22:23 Baso # (Auto) 0.1 10^3/uL (0.0-0.1) 10/15/23 22:23 Nucleated RBC % (auto) 0 % 10/15/23 22:23 Nucleated RBCs # 0.0 /100WBC 10/15/23 22:23 PT 13.40 SECONDS (12.1-14.9) 10/15/23 22:23 INR 0.99 (0.8-1.2) 10/15/23 22:23 Sodium 134 mmol/L (136-145) L 10/15/23 22:23 Potassium 4.5 mmol/L (3.5-5.1) 10/15/23 22:23 Chloride 100 mmol/L (98-107) 10/15/23 22:23 Carbon Dioxide 20 mmol/L (22-29) L 10/15/23 22:23 Anion Gap 18.5 (5-19) 10/15/23 22:23 BUN 13 mg/dL (6-20) 10/15/23 22:23 Creatinine 0.6 mg/dL (0.5-0.9) 10/15/23 22:23 GFR Calculation 113.8 mL/min (90-130) 10/15/23 22:23 Glucose 177 mg/dL (65-115) H 10/15/23 22:23 Calculated Osmolality 282 mOsm/kg (285-295) L 10/15/23 22:23 Calcium 9.4 mg/dL (8.5-10.5) 10/15/23 22:23 Total Bilirubin 0.2 mg/dL (0.15-1.2) 10/15/23 22:23 AST 19 U/L (0-32) 10/15/23 22:23 ALT 20 U/L (0-33) 10/15/23 22:23 Alkaline Phosphatase 79 U/L (35-105) 10/15/23 22:23 Troponin T Baseline < 6 ng/L (0-10) 10/15/23 22:23 Troponin T 120 Minute 6.00 ng/L (0-10) 10/16/23 00:39 Delta Troponin T 0.54710 ABS# (0-10) 10/16/23 00:39 Total Protein 6.8 g/dL (6.6-8.7) 10/15/23 22:23 Albumin 4.0 g/dL (3.5-5.2) 10/15/23 22:23 Globulin 2.8 g/dL (1.3-4.6) 10/15/23 22:23 All radiology interpretation(s) finalized by discharge EKG Data EKG 1: I personally reviewed and interpreted this EKG as follows: EKG interpretation date: 10/15/23 EKG interpretation time: 21:58 Interpretation: nsr hr [address] or t wave abnormalities qrs 105 qtc 393 EKG 2: I personally reviewed and interpreted this EKG as follows: EKG interpretation date: 10/15/23 EKG interpretation time: 22:45 Interpretation: nsr hr [address] or t wave abnormalities qrs 96 qtc 408 Discharge Plan Discharge Patient Disposition: Home Clinical Impression: Chest pain Condition: Stable Prescriptions: No Action nitroglycerin [Nitrostat] 0.4 mg tablet, sublingual 0.4 mg sublingual Q5M PRN (Reason: chest pain) Qty: 25 1RF Rx Instructions: do not exceed 3 doses per episode spironolactone 50 mg tablet See Rx Instructions .ROUTE .COMPLEX Qty: 90 1RF Dose Instruction: TAKE 1 TABLET BY MOUTH EVERY DAY Rx Instructions: TAKE 1 TABLET BY MOUTH EVERY DAY buspirone 10 mg tablet 10 mg PO BID Qty: 60 0RF (DME) Dexcom G7 Sensor Device See Rx Instructions .ROUTE .MEDSUPPLY Qty: 6 0RF Rx Instructions: [place] 10days [place] Dexcom G7 Actuarial Consultant Misc See Rx Instructions .Route Qty: 1 0RF Rx Instructions: As directed [place] blood-glucose meter [OneTouch Ultra2 Meter] Kit See Rx Instructions .Route Qty: 1 0RF Rx Instructions: check sugar 4-6 times a day (DME) lancets [OneTouch UltraSoft Lancets] Misc See Rx Instructions .Route Qty: 200 1RF Rx Instructions: As directed aspirin 81 mg tablet,delayed release (DR/EC) See Rx Instructions .ROUTE .COMPLEX Qty: 90 1RF Dose Instruction: TAKE 1 TABLET BY MOUTH EVERY DAY Rx Instructions: TAKE 1 TABLET BY MOUTH EVERY DAY (DME) pen needle, diabetic [BD Ultra-Fine Short Pen Needle] 31 gauge x 5/16 needle See Rx Instructions .ROUTE .MEDSUPPLY Qty: 200 0RF Rx Instructions: As directed clopidogrel 75 mg tablet See Rx Instructions .ROUTE .COMPLEX Qty: 30 2RF Hold Instructions: Resume on 07/04/23. Dose Instruction: TAKE 1 TABLET BY MOUTH EVERY DAY Rx Instructions: TAKE 1 TABLET BY MOUTH EVERY DAY (DME) OneTouch Ultra Test Strip See Rx Instructions .ROUTE .COMPLEX Qty: 400 1RF Dose Instruction: CHECK SUGAR 4-6 TIMES DAILY Rx Instructions: CHECK SUGAR 4-6 TIMES DAILY Jardiance 10 mg tablet See Rx Instructions .ROUTE .COMPLEX Qty: 30 5RF Dose Instruction: TAKE 1 TABLET BY MOUTH EVERY DAY IN THE MORNING Rx Instructions: TAKE 1 TABLET BY MOUTH EVERY DAY IN THE MORNING carvedilol 6.25 mg tablet 6.25 mg PO BID Qty: 180 2RF Novolog FlexPen U-100 Insulin 100 unit/mL (3 mL) insulin pen See Rx Instructions .ROUTE .COMPLEX Qty: 30 0RF Dose Instruction: INJECT DIRECTED SUBCUTANEOUSLY 3 TIMES DAILY AFTER MEALS BASED ON SLIDING SCALE, MAX 40 UNITS/DAY Rx Instructions: INJECT DIRECTED SUBCUTANEOUSLY 3 TIMES DAILY AFTER MEALS BASED ON SLIDING SCALE, MAX 40 UNITS/DAY atorvastatin 80 mg tablet 80 mg PO DAILY Qty: 90 3RF insulin glargine [Lantus Solostar U-100 Insulin] 100 unit/mL (3 mL) insulin pen See Rx Instructions .ROUTE .COMPLEX Qty: 15 0RF Dose Instruction: INJECT 40 UNITS SUBCUTANEOUSLY DAILY FOR 60 DAYS Rx Instructions: INJECT 40 UNITS SUBCUTANEOUSLY DAILY FOR 60 DAYS meloxicam 15 mg tablet 15 mg PO DAILY Qty: 30 5RF Hold Instructions: Resume on 07/03/23. Discharge Orders: Discharge ED (Routine); Ordered 10/16/23 Ordered By: Caro Cheatham Referrals: Kasey Naqvi DO [Primary Care Provider] - 1-3 days Discharge Diet: Advance as tolerated Discharge Activity: Resume usual activity Patient Instructions: Chest Pain (ED) Coding Level of Care Code ED Home Improvement Contractor for Marii Alegria
[2023-10-15 22:30] VITALS: BP 130/81; PULSE 75; RESP 16; O2SAT 96
[2023-10-15 22:44] LABS: Basophils # 0.1 10^3/uL (0.0-0.1); Basophils % 0.6 %; Eosinophils # 0.2 10^3/uL (0.0-0.8); Eosinophils % 1.6 %; Hematocrit 43.1 % (36-47); Lymphocytes # 2.9 10^3/uL (0.8-4.8); Lymphocytes % 25.4 %; Mean Corpuscular HGB Conc 32.7 g/dL (30-55); Mean Corpuscular Hemoglobin 29.4 pg (27-33); Mean Platelet Volume 9.2 fL (7.4-10.4); Monocytes # 0.6 10^3/uL (0.2-0.9); Monocytes % 5.4 %; Neutrophils % 66.7 %; Nucleated Red Blood Cells % 0 %; Platelet Count 311 10^3/cmm (157-399); Red Blood Count 4.79 10^6/uL (3.85-5.65); Red Cell Distribution Width 13.1 % (12.1-15.1); White Blood Count 11.54 10^3/uL (3.29-11.43)
[2023-10-15 22:58] LABS: INR 0.99 (0.8-1.2)
[2023-10-15 23:07] VITALS: BP 108/63; PULSE 77; RESP 14; O2SAT 95
[2023-10-15 23:21] LABS: Troponin(5th) Baseline < 6 ng/L (0-10)
[2023-10-15 23:22] LABS: Alkaline Phosphatase 79 U/L (35-105); Blood Urea Nitrogen 13 mg/dL (6-20); Calcium 9.4 mg/dL (8.5-10.5); Carbon Dioxide 20 mmol/L (22-29); Chloride 100 mmol/L (98-107); Globulin 2.8 g/dL (1.3-4.6); Glomerular Filtration Rate 113.8 mL/min (90-130); Glucose 177 mg/dL (65-115); Osmolality Calculated 282 mOsm/kg (285-295); Sodium 134 mmol/L (136-145); Total Bilirubin 0.2 mg/dL (0.15-1.2); Total Protein 6.8 g/dL (6.6-8.7)
[2023-10-15 23:24] LABS: Alanine Aminotransferase 20 U/L (0-33); Anion Gap 18.5 (5-19); Aspartate Amino Transferase 19 U/L (0-32); Potassium 4.5 mmol/L (3.5-5.1)
--- NOTE | 2023-10-15 23:45 | ECG_ITS ---
[facility] Test Date: 2023-10-15 Pat Name: Oralia Moralez Department: Room: Gender: Female Wood Finisher: : 1985 Requested By: Caro Cheatham Order Number: [id number] Maki MD: Michael Gillette M.D. Measurements Intervals [place] Rate: 65 P: 43 DE: 169 QRS: 45 QRSD: 96 T: 58 QT: 397 QTc: 414 Interpretive Statements SINUS RHYTHM Compared to ECG 10/15/2023 21:58:06 Myocardial infarct finding no longer present Electronically Signed On 10-16-2023 16:58:34 CDT by Michael Gillette M.D. [id number]
[2023-10-16] VITALS: BP 137/91; PULSE 64; RESP 22; O2SAT 100
[2023-10-16 00:30] VITALS: BP 133/89; PULSE 70; RESP 22; O2SAT 96
[2023-10-16 01:11] VITALS: BP 122/80; PULSE 73; RESP 16; O2SAT 98
[2023-10-16 01:13] LABS: Troponin 5 2HR Delta 0.00001 ABS# (0-10)
== END 2023-10-16 01:25 | disposition home or self-care (01) ==
PROVIDERS: Emergency Provider Emergency Medicine; PCP Family Medicine
DX: R07.9 Chest pain, unspecified (principal); Z79.82 Long term (current) use of aspirin; Z79.02 Long term (current) use of antithrombotics/antiplatelets; Z79.4 Long term (current) use of insulin; Z87.891 Personal history of nicotine dependence; I10 Essential (primary) hypertension; I25.10 Atherosclerotic heart disease of native coronary artery without angina pectoris; I25.2 Old myocardial infarction; E11.9 Type 2 diabetes mellitus without complications; Z95.1 Presence of aortocoronary bypass graft
CPT/HCPCS: 36415; 71045; 80053; 84484; 85025; 85610; 93005; 99285

== ENCOUNTER 2023-10-25 13:03 | Emergency (ER) | payer MEDICAID, SELFPAY ==
[2023-10-25 13:05] VITALS: BP 140/85; PULSE 78; RESP 16; TEMP 36.5; O2SAT 99; BMI 36.9
[2023-10-25 13:41] LABS: Basophils # 0.1 10^3/uL (0.0-0.1); Basophils % 0.6 %; Eosinophils # 0.1 10^3/uL (0.0-0.8); Eosinophils % 1.4 %; Hematocrit 46.5 % (36-47); Lymphocytes % 31.7 %; Mean Corpuscular HGB Conc 31.6 g/dL (30-55); Mean Corpuscular Hemoglobin 28.7 pg (27-33); Mean Corpuscular Volume 90.8 fl (85-98); Mean Platelet Volume 9.2 fL (7.4-10.4); Monocytes # 0.5 10^3/uL (0.2-0.9); Monocytes % 5.4 %; Neutrophils # 5.76 10^3/uL (1.8-7.7); Neutrophils % 60.5 %; Nucleated Red Blood Cells % 0 %; Platelet Count 340 10^3/cmm (157-399); Red Blood Count 5.12 10^6/uL (3.85-5.65); Red Cell Distribution Width 12.6 % (12.1-15.1); White Blood Count 9.51 10^3/uL (3.29-11.43)
[2023-10-25 13:52] LABS: Alanine Aminotransferase 19 U/L (0-33); Albumin Level 3.9 g/dL (3.5-5.2); Alkaline Phosphatase 86 U/L (35-105); Aspartate Amino Transferase 13 U/L (0-32); Blood Urea Nitrogen 16 mg/dL (6-20); Calcium 9.8 mg/dL (8.5-10.5); Carbon Dioxide 22 mmol/L (22-29); Chloride 99 mmol/L (98-107); Creatinine Clr Calc Pharmacy 197.7859; Globulin 3.9 g/dL (1.3-4.6); Glomerular Filtration Rate 140.4 mL/min (90-130); Glucose 225 mg/dL (65-115); Osmolality Calculated 290 mOsm/kg (285-295); Sodium 136 mmol/L (136-145); Total Bilirubin 0.2 mg/dL (0.15-1.2); Total Protein 7.8 g/dL (6.6-8.7)
[2023-10-25 13:54] LABS: Anion Gap 19.2 (5-19); Potassium 4.2 mmol/L (3.5-5.1)
== END 2023-10-25 15:46 | disposition left against medical advice (07) ==
PROVIDERS: Emergency Medicine; Emergency Provider Family Medicine; PCP Family Medicine
DX: Z53.21 Procedure and treatment not carried out due to patient leaving prior to being seen by health care provider (principal)
CPT/HCPCS: 80053; 85025

== ENCOUNTER 2023-10-26 20:41 | Emergency (ER) | payer MEDICAID, SELFPAY ==
[2023-10-26 20:49] VITALS: BP 133/78; PULSE 86; RESP 16; TEMP 36.5; O2SAT 98; BMI 36.9
--- NOTE | 2023-10-26 23:54 | ECG_ITS ---
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 Measurements Intervals [place] Rate: 86 P: 34 IL: 128 QRS: 20 QRSD: 90 T: 62 QT: 362 QTc: 433 Interpretive Statements SINUS RHYTHM Compared to ECG 10/15/2023 23:45:56 No significant changes Electronically Signed On 10-27-2023 22:32:23 CDT by Pam Subramanian M.D. [id number]
== END 2023-10-27 00:14 | disposition left against medical advice (07) ==
LOC: ER 20:45
PROVIDERS: Emergency Provider Family Medicine; PCP Family Medicine
DX: Z53.21 Procedure and treatment not carried out due to patient leaving prior to being seen by health care provider (principal)
CPT/HCPCS: 93005

== ENCOUNTER 2023-11-01 08:36 | Outpatient (CLI) | payer MEDICAID, SELFPAY ==
--- NOTE | 2023-11-01 | ECG_ITS ---
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 Interpretive Statements NAME OF STUDY: LEXISCAN SESTAMIBI STRESS TEST INDICATION: [Chest Pain] Procedure: At the baseline, the blood pressure was 109/74 mmHg with a heart rate of 73 bpm. The electrocardiogram showed normal sinus rhythm, normal axis with normal ST and T's. The Lexiscan was infused over a period of 20 seconds. A total of 0.4 mg of Lexiscan was infused. The stress phase was continued for a total of 5 minutes. Heart rate was at the end of stress phase was 92 bpm and a blood pressure of 119/80 mmHg. The EKG at the peak infusion revealed normal sinus rhythm with no significant ST-T wave changes. Sestamibi was injected 20 seconds after the Lexiscan infusion. Blood pressure at the end of recovery phase was 114/72 mmHg with a heart rate of 85 bpm. Conclusion: 1. Normal EKG response to Lexiscan infusion 2. No Lexiscan induced chest pain or cardiac arrhythmia. 3. Normal blood pressure and heart rate response. 4. Sestamibi/sestamibi perfusion scan pending; see separate report. Electronically Signed On 11-05-2023 10:54:20 CDT by Michael Gillette M.D. [id number]
[2023-11-01 08:45] VITALS: BMI 36.6
--- NOTE | 2023-11-01 08:48 | NMCV_ITS ---
NM guanako perf SPECT r/s* [id number] Oralia Moralez Age: 37 Gender: F : 1985 Exam Date: 11/01/2023 09:34 Ordering Phys: Michael Gillette M.D ([email or web address]) Technologist: LOUISE Rangel Exam Location: [facility] Indications: CHEST PAIN STRESS TEST Please [facility] IMAGE PROTOCOL Rest/Stress 1 Lexiscan Day Radiopharmaceutical Dose (mCi) Administration Site Administered by Rest: Tc-99m 10.5 IV LOUISE Chavarria Sestamibi Stress:Tc-99m 32.8 IV LOUISE Rangel Sestamikofi Rest: 01-Nov-2023 60 Discovery 630 Stress: 01-Nov-2023 30 Discovery 630 0.4mg Lexiscan. Images obtained in supine and prone position. SPECT RESULTS Technical Quality: Excellent Raw Data Analysis: Normal Image Corrections: No attenuation or motion correction applied Summed Stress Score: 13 Summed Rest Score: 4 Summed Difference Score: 10 PERFUSION FINDINGS There is a large sized, mostly reversible perfusion defect seen in apical, apical anterior, apical septal julian. This is consistent with small to medium sized area of prior infarct with large area of johanna-infarct ischemia in LAD territory. There is large sized area of partially reversible perfusion defect seen in inferolateral wall. This is consistent with medium sized area of prior infarct with medium to large sized area of johanna-infarct ischemia in left circumflex artery territory. FUNCTIONAL RESULTS (calculated via Gated SPECT) Stress Image LV EF (%): 64 Stress EDV (mL):84 TID: 1 Stress ESV (mL):30 FUNCTIONAL FINDINGS: There is normal left ventricular systolic function. Galva appears aneurysmal IMPRESSIONS 1. Abnormal myocardial perfusion imaging with small to medium sized area of prior infarct with large area of johanna-infarct ischemia seen in the LAD territory 2. Medium sized area of prior infarct with medium to large sized area of johanna- infarct ischemia in left circumflex artery territory. 3. LV systolic function is normal. Galva appears aneurysmal. Michael Gillette MD (Electronically Signed) Final Date: 01 Nov 2023 12:43 S
[2023-11-01] MEDS: regadenoson 0.4 Mg/5 ml Syringe 0.400000000000000022 MG IVP (10:18)
[2023-11-01 11:44] VITALS: BP 142/84; PULSE 72
== END 2023-11-01 08:37 | disposition home or self-care (01) ==
LOC: CDL 08:37
PROVIDERS: PCP Family Medicine; Visit Provider Internal Medicine
DX: R94.39 Abnormal result of other cardiovascular function study (principal); I25.2 Old myocardial infarction; I25.3 Aneurysm of heart
CPT/HCPCS: 36415; 78452; 93017; 96374; A9500; J2785

== ENCOUNTER 2023-11-03 23:18 | Emergency (ER) | payer MEDICAID, SELFPAY ==
[2023-11-03 23:25] VITALS: BP 139/92; PULSE 91; RESP 17; TEMP 36.8; O2SAT 98; BMI 37.0
--- NOTE | 2023-11-03 23:29 | ECG_ITS ---
[facility] Test Date: 2023-11-03 Pat Name: Oralia Moralez Department: Room: Gender: Female Manager Collection: : 1985 Requested By: Simba Murcia Order Number: [id number] Maki MD: Michael Gillette M.D. Measurements Intervals [place] Rate: 87 P: 39 PA: 140 QRS: 37 QRSD: 94 T: 72 QT: 360 QTc: 435 Interpretive Statements SINUS RHYTHM NONSPECIFIC T-WAVE ABNORMALITY Compared to ECG 10/26/2023 20:53:27 T-wave abnormality now present Electronically Signed On 11-04-2023 12:52:36 CDT by Michael Gillette M.D. [id number]
--- NOTE | 2023-11-04 00:04 | ED_ITS ---
HPI - Chest Pain 2 General: Chief Complaint: Chest Pain Stated Complaint: chest pain/ right arm pain Time Seen by Provider: 11/03/23 23:39 History of Present Illness: 37-year-old female comes in today with c omplaints of chest pain. Patient reports that she had an episode of chest pain that started this afternoon. Patient has a history of coronary artery disease with history of bypass and 2 stent placements. Patient appears nontoxic. Patient has stress test on Saturday but has not had the results given to her yet. Review of Systems 2 General: Reports: 10 or more systems reviewed and unremarkable except in HPI and below Card: Reports: chest pain PFS ED 2 PFSH: Medical History Bed bug bite Hypertension Abnormal cardiovascular stress test Chest pain CAD (coronary artery disease) STEMI (ST elevation myocardial infarction) Family history of premature CAD Nicotine dependence, cigarettes, with unspecified nicotine-induced disorders Osteoarthritis of left knee High cholesterol delivery delivered Diabetes type 2, uncontrolled Hypercholesteremia Family history of early CAD Surgical History Hx of CABG History of delivery x 2 H/O tubal ligation Family History Father Diabetes Heart disease Mother Diabetes COPD (chronic obstructive pulmonary disease) Emphysema lung Heart disease Kidney failure Arthritis Social History Smoking and tobacco/nicotine status: former use of tobacco/nicotine Second hand smoke exposure: No Substance/Drug Use: never Adopted: No Caregiver/support person: No Lives independently: Yes Housing: House Marital status: Number of children: 2 Highest education level completed: 9th Grade service: No Physical Exam 2 Const: COMMON NORMALS: alert HENMT: COMMON NORMALS: normocephalic HEAD & SCALP: normocephalic Neck/C-Spine: GENERAL: Yes normal visual inspection Resp: COMMON NORMALS: normal respiratory effort and clear to auscultation bilaterally AUSCULTATION: clear to auscultation bilaterally Cardio: COMMON NORMALS: regular rate and regular rhythm RATE: regular rate RHYTHM: regular rhythm GI: COMMON NORMALS: Soft to palpation PALPATION: Yes Soft to palpation Back/Pelvis: COMMON NORMALS: thoracic and lumbar spine normal to inspection Extremity: COMMON NORMALS: no pedal edema Neuro: SENSORIUM/ORIENTATION: Yes alert Skin: COMMON NORMALS: turgor normal GENERAL SKIN EXAM: turgor normal Course 2 Vital Signs: Vital signs: Vital Signs Temperature 98.2 F 11/03/23 23:25 Pulse Rate 79 11/04/23 00:26 Respiratory Rate 16 11/04/23 00:26 Blood Pressure 139/92 11/03/23 23:25 Pulse Oximetry 95 11/04/23 00:26 Oxygen Delivery Me thod Room Air 11/03/23 23:25 MDM - Chest Pain Medical Decision Making 37-year-old female comes in today with complaints of chest pain starting this afternoon. On exam respirations are even lungs are clear to auscultation. Skin is warm and dry. Vital signs are normal. No edema is noted in the extremities. Differential diagnosis includes not limited to ACS, anxiety, CHF, stable angina. Laboratory values were unremarkable. Reviewed exam with patient recommended follow-up with primary care and bottle washing machine operator for further evaluation and treatment. Patient was stable and discharged home. Lab Data 11/04/23 00:07 11/04/23 00:07 Laboratory Results WBC 12.37 10^3/uL (3.29-11.43) H 11/04/23 00:07 RBC 5.24 10^6/uL (3.85-5.65) 11/04/23 00:07 Hgb 15.10 g/dL (11.27-16.99) 11/04/23 00:07 Hct 45.8 % (36-47) 11/04/23 00:07 MCV 87.4 fl (85-98) 11/04/23 00:07 MCH 28.8 pg (27-33) 11/04/23 00:07 MCHC 33.0 g/dL (30-55) 11/04/23 00:07 RDW 12.4 % (12.1-15.1) 11/04/23 00:07 Plt Count 364 10^3/cmm (157-399) 11/04/23 00:07 MPV 8.9 fL (7.4-10.4) 11/04/23 00:07 Neut % (Auto) 61.0 % 11/04/23 00:07 Lymph % (Auto) 30.9 % 11/04/23 00:07 [place] % (Auto) 5.7 % 11/04/23 00:07 Eos % (Auto) 1.4 % 11/04/23 00:07 Baso % (Auto) 0.5 % 11/04/23 00:07 Neut # (Auto) 7.56 10^3/uL (1.8-7.7) 11/04/23 00:07 Lymph # (Auto) 3.8 10^3/uL (0.8-4.8) 11/04/23 00:07 [place] # (Auto) 0.7 10^3/uL (0.2-0.9) 11/04/23 00:07 Eos # (Auto) 0.2 10^3/uL (0.0-0.8) 11/04/23 00:07 Baso # (Auto) 0.1 10^3/uL (0.0-0.1) 11/04/23 00:07 Nucleated RBC % (auto) 0 % 11/04/23 00:07 Nucleated RBCs # 0.0 /100WBC 11/04/23 00:07 Sodium 136 mmol/L (136-145) 11/04/23 00:07 Potassium 4.0 mmol/L (3.5-5.1) 11/04/23 00:07 Chloride 99 mmol/L (98-107) 11/04/23 00:07 Carbon Dioxide 22 mmol/L (22-29) 11/04/23 00:07 Anion Gap 19.0 (5-19) 11/04/23 00:07 BUN 14 mg/dL (6-20) 11/04/23 00:07 Creatinine 0.4 mg/dL (0.5-0.9) L 11/04/23 00:07 GFR Calculation 181.6 mL/min (90-130) H 11/04/23 00:07 Glucose 139 mg/dL (65-115) H 11/04/23 00:07 Calculated Osmolality 285 mOsm/kg (285-295) 11/04/23 00:07 Calcium 9.8 mg/dL (8.5-10.5) 11/04/23 00:07 Total Bilirubin 0.3 mg/dL (0.15-1.2) 11/04/23 00:07 AST 13 U/L (0-32) 11/04/23 00:07 ALT 20 U/L (0-33) 11/04/23 00:07 Alkaline Phosphatase 85 U/L (35-105) 11/04/23 00:07 Troponin T Baseline < 6 ng/L (0-10) 11/04/23 00:07 NT-Pro-B Natriuret Pep 56 pg/mL (0-125) 11/04/23 00:07 Total Protein 7.4 g/dL (6.6-8.7) 11/04/23 00:07 Albumin 4.3 g/dL (3.5-5.2) 11/04/23 00:07 Globulin 3.1 g/dL (1.3-4.6) 11/04/23 00:07 Lipase 24 U/L (13-60) 11/04/23 00:07 No radiology studies performed this visit EKG Data EKG 1: I personally reviewed and interpreted this EKG as follows: EKG interpretation date: 11/04/23 EKG interpretation time: 23:40 Interpretation: EKG shows a sinus rhythm with a regular rate at [address] elevation or ectopy is noted. No prior exam was available for immediate comparison. Computer generated interpretation: Sinus rhythm, nonspecific T wave abnormality Discharge Plan Discharge Patient Disposition: Home Clinical Impression: Chest pain Qualifiers: Chest pain type: unspecified Qualified Code(s): R07.9 - Chest pain, unspecified Condition: Stable Prescriptions: No Action nitroglycerin [Nitrostat] 0.4 mg tablet, sublingual 0.4 mg sublingual Q5M PRN (Reason: chest pain) Qty: 25 1RF Rx Instructions: do not exceed 3 doses per episode spironolactone 50 mg tablet See Rx Instructions .ROUTE .COMPLEX Qty: 90 1RF Dose Instruction: TAKE 1 TABLET BY MOUTH EVERY DAY Rx Instructions: TAKE 1 TABLET BY MOUTH EVERY DAY buspirone 10 mg tablet 10 mg PO BID Qty: 60 0RF (DME) Dexcom G7 Sensor Device See Rx Instructions .ROUTE .MEDSUPPLY Qty: 6 0RF Rx Instructions: Change every 10days (DME) Dexcom G7 Carpet Journeyman Misc See Rx Instructions .Route Qty: 1 0RF Rx Instructions: As directed (DME) blood-glucose meter [OneTouch Ultra2 Meter] Kit See Rx Instructions .Route Qty: 1 0RF Rx Instructions: check sugar 4-6 times a day (DME) lancets [OneTouch UltraSoft Lancets] Misc See Rx Instructions .Route Qty: 200 1RF Rx Instructions: As directed aspirin 81 mg tablet,delayed release (DR/EC) See Rx Instructions .ROUTE .COMPLEX Qty: 90 1RF Dose Instruction: TAKE 1 TABLET BY MOUTH EVERY DAY Rx Instructions: TAKE 1 TABLET BY MOUTH EVERY DAY (DME) pen needle, diabetic [BD Ultra-Fine Short Pen Needle] 31 gauge x 5/16 needle See Rx Instructions .ROUTE .MEDSUPPLY Qty: 200 0RF Rx Instructions: As directed clopidogrel 75 mg tablet See Rx Instructions .ROUTE .COMPLEX Qty: 30 2RF Hold Instructions: Resume on 07/04/23. Dose Instruction: TAKE 1 TABLET BY MOUTH EVERY DAY Rx Instructions: TAKE 1 TABLET BY MOUTH EVERY DAY (DME) OneTouch Ultra Test Strip See Rx Instructions .ROUTE .COMPLEX Qty: 400 1RF Dose Instruction: CHECK SUGAR 4-6 TIMES DAILY Rx Instructions: CHECK SUGAR 4-6 TIMES DAILY Jardiance 10 mg tablet See Rx Instructions .ROUTE .COMPLEX Qty: 30 5RF Dose Instruction: TAKE 1 TABLET BY MOUTH EVERY DAY IN THE MORNING Rx Instructions: TAKE 1 TABLET BY MOUTH EVERY DAY IN THE MORNING carvedilol 6.25 mg tablet 6.25 mg PO BID Qty: 180 2RF Novolog FlexPen U-100 Insulin 100 unit/mL (3 mL) insulin pen See Rx Instructions .ROUTE .COMPLEX Qty: 30 0RF Dose Instruction: INJECT DIRECTED SUBCUTANEOUSLY 3 TIMES DAILY AFTER MEALS BASED ON SLIDING SCALE, MAX 40 UNITS/DAY Rx Instructions: INJECT DIRECTED SUBCUTANEOUSLY 3 TIMES DAILY AFTER MEALS BASED ON SLIDING SCALE, MAX 40 UNITS/DAY atorvastatin 80 mg tablet 80 mg PO DAILY Qty: 90 3RF insulin glargine [Lantus Solostar U-100 Insulin] 100 unit/mL (3 mL) insulin pen See Rx Instructions .ROUTE .COMPLEX Qty: 15 0RF Dose Instruction: INJECT 40 UNITS SUBCUTANEOUSLY DAILY FOR 60 DAYS Rx Instructions: INJECT 40 UNITS SUBCUTANEOUSLY DAILY FOR 60 DAYS meloxicam 15 mg tablet 15 mg PO DAILY Qty: 30 5RF Hold Instructions: Resume on 07/03/23. Discharge Orders: Discharge ED (Routine); Ordered 11/04/23 Ordered By: Amos Walters Referrals: Kasey Naqvi DO [Primary Care Provider] - Discharge Diet: Usual diet Discharge Activity: Increase activity as tolerated Patient Instructions: Chest Pain (ED) Activity Restrictions/Additional Instructions: Drink plenty water and fluids. Continue with routine medications as directed. Use acetaminophen as needed for pain. Follow-up with primary care for further instructions. Follow-up with bottle washing machine operator for final results of stress test. Coding Level of Care Code ED Talent Acquisition Project Manager for Marii Alegria
[2023-11-04 00:20] LABS: Basophils # 0.1 10^3/uL (0.0-0.1); Basophils % 0.5 %; Eosinophils # 0.2 10^3/uL (0.0-0.8); Eosinophils % 1.4 %; Hematocrit 45.8 % (36-47); Lymphocytes # 3.8 10^3/uL (0.8-4.8); Lymphocytes % 30.9 %; Mean Corpuscular Hemoglobin 28.8 pg (27-33); Mean Corpuscular Volume 87.4 fl (85-98); Mean Platelet Volume 8.9 fL (7.4-10.4); Monocytes # 0.7 10^3/uL (0.2-0.9); Monocytes % 5.7 %; Neutrophils # 7.56 10^3/uL (1.8-7.7); Nucleated Red Blood Cells % 0 %; Platelet Count 364 10^3/cmm (157-399); Red Blood Count 5.24 10^6/uL (3.85-5.65); Red Cell Distribution Width 12.4 % (12.1-15.1); White Blood Count 12.37 10^3/uL (3.29-11.43)
[2023-11-04 00:26] VITALS: PULSE 79; RESP 16; O2SAT 95
[2023-11-04 00:35] LABS: Troponin(5th) Baseline < 6 ng/L (0-10)
[2023-11-04 01:01] LABS: Alanine Aminotransferase 20 U/L (0-33); Albumin Level 4.3 g/dL (3.5-5.2); Alkaline Phosphatase 85 U/L (35-105); Aspartate Amino Transferase 13 U/L (0-32); Blood Urea Nitrogen 14 mg/dL (6-20); Calcium 9.8 mg/dL (8.5-10.5); Carbon Dioxide 22 mmol/L (22-29); Chloride 99 mmol/L (98-107); Creatinine Clr Calc Pharmacy 247.7939; Globulin 3.1 g/dL (1.3-4.6); Glomerular Filtration Rate 181.6 mL/min (90-130); Glucose 139 mg/dL (65-115); Lipase 24 U/L (13-60); NT Pro B Type Natriuretic Pept 56 pg/mL (0-125); Osmolality Calculated 285 mOsm/kg (285-295); Sodium 136 mmol/L (136-145); Total Bilirubin 0.3 mg/dL (0.15-1.2); Total Protein 7.4 g/dL (6.6-8.7)
[2023-11-04 01:48] VITALS: BP 139/92; PULSE 79; RESP 16; TEMP 36.8; O2SAT 95
== END 2023-11-04 01:52 | disposition home or self-care (01) ==
PROVIDERS: Emergency Provider Nurse Practitioner Family; PCP Family Medicine
DX: R07.9 Chest pain, unspecified (principal); Z87.891 Personal history of nicotine dependence; I10 Essential (primary) hypertension; E11.9 Type 2 diabetes mellitus without complications; Z79.4 Long term (current) use of insulin; Z79.899 Other long term (current) drug therapy
CPT/HCPCS: 36415; 80053; 83690; 83880; 84484; 85025; 93005; 99284

== ENCOUNTER → 2023-11-06 10:44 | Outpatient (BNVA) | payer MEDICAID, SELFPAY | PROVIDERS: PCP Family Medicine; Visit Provider Internal Medicine | DX: E11.65 Type 2 diabetes mellitus with hyperglycemia; E78.00 Pure hypercholesterolemia, unspecified; Z82.49 Family history of ischemic heart disease and other diseases of the circulatory system; I25.10 Atherosclerotic heart disease of native coronary artery without angina pectoris; Z79.4 Long term (current) use of insulin; Z79.84 Long term (current) use of oral hypoglycemic drugs | CPT/HCPCS: 99214 ==

== ENCOUNTER 2023-11-14 08:34 | Outpatient (CLI) | payer MEDICAID, SELFPAY ==
[2023-11-14] VITALS (25 sets, daily range): BP systolic 99–133; BP diastolic 66–95; PULSE 64–90; RESP 14–41; TEMP 36.7–37.4; O2SAT 95–99; BMI 38.2
[2023-11-14] MEDS: diphenhydrAMINE 50 mg Capsule PO (08:46)
--- NOTE | 2023-11-14 09:00 | XACV_ITS ---
Exam Room: [facility] Ht: 168 cm Wt: 108 kg BSA: 2.29 m2 Gender: Female : 1985 Any Known Allergies: No known allergies Exam Priority: Routine Procedure(s): Procedure Description: Diagnostic procedure Procedure Description: PCI procedure Procedure Description: Venous Graft Catheterization Procedure Description: FINN Graft Catheterization Procedure Description: Drug Eluting Coronary Stent Procedure Description: PTCA Procedure Description: Miscellaneous Procedure Description: ACT Procedure Description: Coronary Angiography Diagnostic Cath Status: Elective Diagnostic Findings * INDICATION: Worsening angina/ abnormal stress test. * Left Main has no significant disease. * Circumflex is occluded in the distal segment. * Right Coronary Artery is small sized vessel with diffuse disease. * Proximal Left Anterior Descending: significant 80% stenosis, PARAS: 3 flow. In the midsegment prior stent has critical ISR and after the stent, vessel is 100% occluded. Prior to the mid stent, patient has large sized septal branches . second septal branch appears to provide weak collaterals to apical LAD.. * Bypass grafts: FINN to LAD is patent however after touchdown saxman LAD is totally occluded. SVG to OM/distal circumflex is patent. SVG to RCA is occluded.. * Coronary angiography shows co-dominance. PCI Status: Elective PCI Indication: Other Interventional Findings * INDICATION: As proximal LAD is supplying blood flow to two patent large sized septal vessels supplying collaterals to apical LAD, we decided to proceed with revascularization of proximal LAD. Left main artery was engaged with XB 3.5 guide catheter. IV heparin was administered to maintain anticoagulation. Run-through guidewire was used to cross the stenosis. We predilated the stenosis with 3.0 x 12 mm semicompliant balloon. This was followed with placement of 3.5 x 18 mm resolute Sandee drug-eluting stent. At this time final angiogram showed excellent stent expansion and no residual stenosis. Guidewire and guide catheter were removed. Patient left the Mental Hygiene Consultant in a stable condition.. * Proximal Left Anterior Descendin% stenosis treated with a AB TREK 3.00X12 RX BALLOON, and MDT R SANDEE 3.5X18 BIRDIE. 0% residual stenosis, PARAS: 3 flow. Conclusions 1. Severe proximal LAD 2. stenosis s/p successful revascularization with 1 stent. FINN to LAD is patent however after touchdown saxman vessel is totally occluded. Proximal LAD is supplying blood flow to 2 medium sized vessels (likely large septals supplying collaterals to apical LAD) SVG to RCA is occluded. SVG to OM/circumflex artery is patent. 3. Patient has prior CABG. 4. Normal left ventricular systolic function. Ejection fraction of 55%. 5. Proximal Left Anterior Descending was treated with a Balloon, and Drug Eluting Stent. Recommendations * Dual antiplatelet therapy with aspirin and plavix. * High intensity statin therapy. * Outpatient cardiology follow up in 2 weeks. Interventional RX Recommendation: PCI w/o planned CABG Diagnostic RX Recommendation: PCI w/o planned CABG Anticoagulation: Heparin Ventriculography Ejection Fraction: 55.0 % Pressures Phase:Rest AO : 129 / 83 ( 98 ) @ 1:32:00 PM 126 / 68 ( 93 ) @ 2:02:00 PM 126 / 68 ( 94 ) @ 2:02:00 PM 132 / 127 ( 93 ) @ 2:08:00 PM LV : 124 / -12 / 14 @ 2:00:00 PM 125 / -4 / 20 @ 2:01:00 PM 129 / -6 / 21 @ 2:02:00 PM Valves Phase:DefaultPhase AV : 2.0 @ 1:26:40 PM 2.0 @ 1:26:40 PM AV Mean Gradient: 9.0 @ 1:26:40 PM 9.0 @ 1:26:40 PM Clinical Evaluation EBL: 5mL-10mL Procedural Details Procedure Consent Obtained. Admit Source: Out Patient. Pre-Procedure Time Out. Identified patient by full name and date of as verbalized by the patient/guarantor. Does the consent match the physician's order: Yes. Accurate & Complete Informed Consent: Yes. Inpatient/Outpatient History & Physical on Chart: Yes. If H&P is completed, is and addenduem needed: No; If yes, is the addendum complete: N/A. Visualize and Verify Site with Patient/Guarantor: N/A. Relevant Radiology Images available: Yes. The risks, benefits, and alternatives of sedation and/or procedure were discussed by physician. The patient agrees to continue. Procedure started. [facility] Clinical Fraility Score: 3: Managing Well. Mental Hygiene Consultant Indications: Worsening Angina. Chest Pain Symptom Assessment: Typical Angina Symptoms. Correct patient, site and procedure confirmed by cath team. Current diagnosis: Chest Pain, Abnormal stress test. PERRLA. Strong, equal hand clicking machine operator bilaterally. Lungs clear x 5 lobes. IV Site on Arrival: 20 gauge in the right anticubital. IV Fluids: 0.9% NaCl at KVO. 0 mL infused prior to catheter finisher and inspector. Pre Procedural Pulses: bilateral posterior tibial was 2+. Pre Procedural Pulses: bilateral dorsalis pedis was 2+. Oxygen started at 2liters/min via nasal canula. bilateral groins was prepped with chloroprep then draped in the usual sterile fashion. Physician notified. Baseline sample Acquired. HR: 61 BPM. Physician arrived. Physician scrubbed in. Immediate Pre-Procedure Time Out. Correct Patient: Yes; Correct Procedure: Yes; Correct Site: Yes; Correct Patient Position: Yes; Correct Supplies: Yes; Dried Flammable Prep: Yes; Blood Products Available: No;. Lidocaine 1% infiltrated to the right groin. Arterial access obtained with micropuncture set. A 5 bolivian JL4 catheter in over wire. Multiple views taken of left coronary artery. Catheter removed over the standard wire. A 5 bolivian JR4 catheter in over wire. Multiple views taken of right coronary artery. Catheter redirected to FINN over standard wire. Wire out. FINN to LAD visualized. Catheter removed over the standard wire. A 5 bolivian AL1 catheter in over wire. SVG's to OM visualized and patent. SVG to RCA occluded. Catheter removed over the standard wire. A 5 bolivian JL4 catheter in over wire. Multiple views taken of left coronary artery. Catheter removed over the standard wire. A 5 bolivian Angled Pig catheter in over wire. EDP Sample taken: LV 124/-13,14; HR: 63 BPM; SpO2: 96%. LV gram performed in GOINS @ 10 mL/second for a total of 30 mL. EDP Sample taken: LV 125/-5,20; HR: 69 BPM; SpO2: 96%. Pullback taken: LV 129/-7,21; AO 126/68(93); Mean: 9mmHg, Peak to Peak: 2mmHg, SEP: 20sec/min; HR: 68 BPM; SpO2: 96%. Catheter removed over the standard wire. 6 bolivian XB 3 guide catheter was inserted over the wire. Balloon inserted to lesion in the prox LAD. Inflation number : 1 A AB TREK 3.00X12 RX BALLOON was prepped and advanced across the Prox LAD , then inflated to 8 SOTERO for 0:21 seconds. Balloon out. Stent inserted to lesion in the prox LAD. Inflation Number : 2 A THOMAS Lugo SANDEE 3.5X18 BIRDIE -Lot Number# [id number] EXP 01-03-2026 was prepped and advanced across the Prox LAD. The stent was deployed at 12 SOTERO for 0:21 seconds. Stent balloon out over wire. Wire out. Results checked. Guide catheter out. ACT drawn. Results 308 seconds. Therapeutic limits - pre-heparin administration 90-150 seconds and monitoring heparin during a vascular procedure >250 seconds. A Suture was successful obtaining hemostatsis at the Right Femoral artery insertion site. Sheath(s) sutured into position with 2-0 silk and sterile 4x4's and Op-site applied over the site. No oozing or signs and symptoms of hematoma noted. Arterial sheath flushed and connected to tranducer and pressure bag with heparinized saline. Post Procedure: Pulses reassessed and unchanged. PERRLA. Strong, equal hand clicking machine operator bilaterally. No VTE prophylaxis required. Post-op diagnosis: Severe proximal LAD stenosis, status post PCI placement of 1 stent. Total IV fluids: 75 mL. Medication's Wasted: Lidocaine 1% = 10 mL. Medication's Wasted: Other = Versed 1mg. Medication's Wasted: Other = Fentanyl 50 mcg. Complications: None. Estimated blood loss: 5mL-10mL. Responsiveness - Normal response to verbal stimuli; alert and oriented, PERRLA. Airway - Unaffected, no intervention required; spontaneous ventilation. Circulation: W/N/L, pulses unchanged. Nausea/Vomiting: No. Procedure completed. Patient transferred by bed to 1st floor. Vital chart was stopped. Access Site Site: Right Femoral artery Sheath Size: 6 Fr Hemostasis Method: Suture Hemostasis Success: Successful Procedure Medications Start: 12:20 PM Stop: 12:20 PM Medication: Versed Amount: 1 mg Route: I.V. Start: 12:25 PM Stop: 12:25 PM Medication: Fentanyl Amount: 25 mcg Route: I.V. Start: 12:28 PM Stop: 12:28 PM Medication: Versed Amount: 1 mg Route: I.V. Start: 1:07 PM Stop: 1:07 PM Medication: Fentanyl Amount: 25 mcg Route: I.V. Start: 1:09 PM Stop: 1:09 PM Medication: Heparin Amount: 9000 units Route: I.V. Start: 1:11 PM Stop: 1: PM Medication: Versed Amount: 1 mg Route: I.V. Start: 1: PM Stop: : PM Medication: Plavix Amount: 300 mg Route: P.O. I, the attending physician, have reviewed and verified all procedure medications. Yes, all medications given per verbal order History/Risk Factors Hypertension: Yes Dyslipidemia: Yes Peripheral Arterial Disease (PAD): No Myocardial Infarction (PR): Yes Obesity: Yes Renal Disease: No Prior Interventions PCI: Yes CABG: Yes Valve Surgery: No Date of PCI: 07/10/2022 Report Signatures Finalized by Michael Gillette MD on 11/17/2023 11:29 PM
--- NOTE | 2023-11-14 12:18 | W.PM.OPSFHP ---
Same Day Surgery H&P Indication for Procedure/HPI DATE OF PROCEDURE: November 14, 2023 CHIEF COMPLAINT/INDICATIONFOR SURGICAL PROCEDURE: Worsening angina/abnormal stress test PREOP DIAGNOSIS: Worsening angina/abnormal stress test PLANNED PROCEDURE: Operation Date: 11/14/23 10:00 Proposed Procedures p Cardiac Catheterization 02811, R94.39(Left) - Michael Gillette M.D Possible percutaneous coronary intervention 37-year-old with past medical history of diabetes, CAD s/p CABG x 3 has been having worsening chest pain symptoms. She had a stress test that was abnormal. Plan for coronary angiogram with possible percutaneous coronary intervention Medications/Allergies* Allergies/Adverse Reactions Allergy/AdvReac Type Severity Reaction Status Date / Time No Known Allergies Allergy Verified 11/14/23 09:26 Current Medications: Generic Name Dose Route Start Last Admin Trade Name Freq PRN Reason Stop Dose Admin Sodium Chloride 1,000 mls @ 50 mls/hr 11/14/23 09:00 11/14/23 08:46 Sodium Chloride 0.9% IV 11/15/23 04:59 Not Given .Q20H ONE Pertinent History/Comorbid Conditions* Medical History (Updated 11/12/23 @ 00:00 by SHERINE Ortez) Bed bug bite Hypertension Abnormal cardiovascular stress test Chest pain CAD (coronary artery disease) STEMI (ST elevation myocardial infarction) Family history of premature CAD Nicotine dependence, cigarettes, with unspecified nicotine-induced disorders Osteoarthritis of left knee High cholesterol delivery delivered Diabetes type 2, uncontrolled Hypercholesteremia Family history of early CAD Surgical History (Updated 07/02/23 @ 00:00 by SHERINE Ortez) Hx of CABG History of delivery x 2 H/O tubal ligation Family History (Updated 08/15/21 @ 14:51 by Maya Boogie LPN) Father Diabetes Father Mother Arthritis Mother Heart disease Father Mother Emphysema lung Mother Kidney failure Mother COPD (chronic obstructive pulmonary disease) Mother Social History Smoking and tobacco/nicotine status: never used tobacco/nicotine Second hand smoke exposure: No Substance/Drug Use: never Adopted: No Caregiver/support person: No Lives independently: Yes Housing: House Marital status: Number of children: 2 Highest education level completed: 9th Grade service: No Pertinent Exam Findings alert, oriented x 3, clear to auscultation bilaterally and regular rate & rhythm Conscious Sedation Assessment PATIENT ASSESSED PRIOR TO SEDATION, WITH NO CHANGE NOTED: Yes AIRWAY EVAL/ANESTHESIA PLAN: normal airway, ASA III, Local Anesthesia, Risks, benefits & alternatives of sedation and/or procedure discussed and Patient agrees to continue as planned ADDITIONAL INFORMATION: Moderate sedation Recommendations Surgery/Procedure today (Left heart cath with possible percutaneous coronary intervention) Coding Level of Care Code Acute Code for [facility] Fwd
[2023-11-14] MEDS: sodium chloride 0.9% 1,000 ML 100 ML IV (13:40)
--- NOTE | 2023-11-14 14:12 | PC.NURSE ---
received from cardiac laborer vineyard via bed at 1340.report received.pt is alert and awake and oriented x 4.denies pain at present.sr on monitor.right femoral sheath intact to pressurized system.drsg is dry and intact.no hematoma noted.right leg is warm to touch and with brisk capillary refill .palpable dp pulse noted.pt instructed in activity restrictions s/p femoral artery procedure...and instructed to notify staff for any bleeding,pain,sob,numbness or for any concerns at all.pt verb understanding of instructions
[2023-11-14 17:04] LABS: Partial Thromboplastin Time 27.5 SECONDS (23.9-36.7)
[2023-11-14] MEDS: fentaNYL 50 mcg/mL INJ 2mL 25 MCG IVP (17:33)
[2023-11-14] MEDS: carvedilol 6.25 mg Tablet PO (18:21)
--- NOTE | 2023-11-14 18:27 | PC.NURSE ---
right femoral sheath pulled at 1750.manual pressure held x 20.vss through-out procedure.maintained palpable dp pulse.right leg remains warm to touch and with brisk capillary refill.no hematoma formation noted.site dressed with 2x2 gauze and secured with biocclusive drsg.pt instructed in activity restrictions s/p arterial sheath pull..and instructed to notify staff for bleeding,pain,sob,numbness...or for any concerns at all.pt verb understanding of instructions
[2023-11-14 18:32] LABS: Glucose Point of Care 153 mg/dL (70-110)
[2023-11-14] MEDS: insulin lispro 100 unit/1 mL SUBCUT ×2 (18:38→22:15)
[2023-11-14 21:50] LABS: Glucose Point of Care 194 mg/dL (70-110)
[2023-11-15] VITALS: BP 102/55; PULSE 78; RESP 16; TEMP 36.9; O2SAT 98
[2023-11-15 04:00] VITALS: BP 105/48; PULSE 74; RESP 16; TEMP 36.8; O2SAT 100
[2023-11-15 06:00] VITALS: BMI 38.1
[2023-11-15 06:46] LABS: Glucose Point of Care 151 mg/dL (70-110)
[2023-11-15 07:03] LABS: Basophils % 0.5 %; Eosinophils # 0.1 10^3/uL (0.0-0.8); Eosinophils % 1.5 %; Hematocrit 42.3 % (36-47); Lymphocytes # 1.1 10^3/uL (0.8-4.8); Lymphocytes % 12.7 %; Mean Corpuscular HGB Conc 32.6 g/dL (30-55); Mean Corpuscular Hemoglobin 29.3 pg (27-33); Mean Corpuscular Volume 89.8 fl (85-98); Mean Platelet Volume 9.2 fL (7.4-10.4); Monocytes # 0.5 10^3/uL (0.2-0.9); Monocytes % 6.3 %; Neutrophils % 78.6 %; Nucleated Red Blood Cells % 0 %; Platelet Count 236 10^3/cmm (157-399); Red Blood Count 4.71 10^6/uL (3.85-5.65); Red Cell Distribution Width 12.4 % (12.1-15.1)
[2023-11-15 07:21] LABS: Anion Gap 15.1 (5-19); Blood Urea Nitrogen 17 mg/dL (6-20); Calcium 8.1 mg/dL (8.5-10.5); Carbon Dioxide 21 mmol/L (22-29); Chloride 103 mmol/L (98-107); Creatinine Clr Calc Pharmacy 335.1255; Glomerular Filtration Rate 253.2 mL/min (90-130); Glucose 145 mg/dL (65-115); Osmolality Calculated 284 mOsm/kg (285-295); Potassium 4.1 mmol/L (3.5-5.1); Sodium 135 mmol/L (136-145)
--- NOTE | 2023-11-15 07:41 | P.DS_ITS ---
Discharge Providers Date of Admission: November 14, 2023 Date of Discharge: November 15, 2023 Attending Provider at Admission: Michael Gillette MD Attending Provider at Discharge: Michael Gillette M.D Primary Care Provider: Kasey Naqvi DO Reason for Visit Reason for Visit: R94.39 Brief History: 37-year-old with past medical history of diabetes, CAD s/p CABG x 3 has been having worsening chest pain symptoms. She had a stress test that was abnormal. Plan for coronary angiogram with possible percutaneous coronary intervention Hospital Course Hospital Course Coronary angiogram demonstrated SVG to RCA is occluded, SVG to distal circumflex/OM is patent FINN to LAD old patent, after touchdown to LAD is occluded. Proximal LAD had severe stenosis and was supplying 2 large sized septal branches. One of the branches is supplying collaterals to apical LAD. We decided to proceed with PCI of proximal LAD. 1 stent was placed. Patient was discharged home after observation overnight on dual antiplatelet therapy with aspirin and Plavix. Physical Exam Narrative: GENERAL: Patient is alert, awake and oriented x3. [] NECK: No jugular vein distension. [] HEENT: No cyanosis. No icterus. No pallor. [] HEART: Regular S1 and S2. No murmur, rub or gallop. [] LUNGS: Clear to auscultate bilaterally. [] CENTRAL NERVOUS SYSTEM: Grossly nonfocal. [] EXTREMITIES: Lower extremities with no edema bilaterally. Discharge Data Studies Completed and Pending Pending at discharge Category Date Time Status STRUCTURAL ENGINEERING DRAFTING OFFICER request for service Routine Exams 11/14/23 09:00 Ordered Laboratory Results WBC 8.40 10^3/uL (3.29-11.43) 11/15/23 06:47 Corrected WBC Cancelled 11/15/23 03:55 RBC 4.71 10^6/uL (3.85-5.65) 11/15/23 06:47 Hgb 13.80 g/dL (11.27-16.99) 11/15/23 06:47 Hct 42.3 % (36-47) 11/15/23 06:47 MCV 89.8 fl (85-98) 11/15/23 06:47 MCH 29.3 pg (27-33) 11/15/23 06:47 MCHC 32.6 g/dL (30-55) 11/15/23 06:47 RDW 12.4 % (12.1-15.1) 11/15/23 06:47 Plt Count 236 10^3/cmm (157-399) 11/15/23 06:47 MPV 9.2 fL (7.4-10.4) 11/15/23 06:47 Gran % Cancelled 11/15/23 03:55 Neut % (Auto) 78.6 % 11/15/23 06:47 Lymph % (Auto) 12.7 % 11/15/23 06:47 Talbot % (Auto) 6.3 % 11/15/23 06:47 Eos % (Auto) 1.5 % 11/15/23 06:47 Baso % (Auto) 0.5 % 11/15/23 06:47 Neut # (Auto) 6.60 10^3/uL (1.8-7.7) 11/15/23 06:47 Lymph # (Auto) 1.1 10^3/uL (0.8-4.8) 11/15/23 06:47 [place]bot # (Auto) 0.5 10^3/uL (0.2-0.9) 11/15/23 06:47 Eos # (Auto) 0.1 10^3/uL (0.0-0.8) 11/15/23 06:47 Baso # (Auto) 0.0 10^3/uL (0.0-0.1) 11/15/23 06:47 Absolute Gran (auto) Cancelled 11/15/23 03:55 Nucleated RBC % (auto) 0 % 11/15/23 06:47 Nucleated RBCs # 0.0 /100WBC 11/15/23 06:47 APTT 27.5 SECONDS (23.9-36.7) 11/14/23 16:37 Sodium 135 mmol/L (136-145) L 11/15/23 06:47 Potassium 4.1 mmol/L (3.5-5.1) 11/15/23 06:47 Chloride 103 mmol/L (98-107) 11/15/23 06:47 Carbon Dioxide 21 mmol/L (22-29) L 11/15/23 06:47 Anion Gap 15.1 (5-19) 11/15/23 06:47 BUN 17 mg/dL (6-20) 11/15/23 06:47 Creatinine 0.3 mg/dL (0.5-0.9) L 11/15/23 06:47 GFR Calculation 253.2 mL/min (90-130) H 11/15/23 06:47 Glucose 145 mg/dL (65-115) H 11/15/23 06:47 POC Glucose 151 mg/dL (70-110) H 11/15/23 06:39 Calculated Osmolality 284 mOsm/kg (285-295) L 11/15/23 06:47 Calcium 8.1 mg/dL (8.5-10.5) L 11/15/23 06:47 Vitals Last Vital Signs Temp 98.3 F 11/15/23 04:00 Pulse 74 11/15/23 04:00 Resp 16 11/15/23 04:00 BP 105/48 11/15/23 04:00 Pulse Ox 100 11/15/23 04:00 O2 Del Method Room Air 11/15/23 04:00 Discharge Plan Discharge Patient Disposition: Home Prescriptions: Continued nitroglycerin [Nitrostat] 0.4 mg tablet, sublingual 0.4 mg sublingual Q5M PRN (Reason: chest pain) Qty: 25 1RF Rx Instructions: do not exceed 3 doses per episode spironolactone 50 mg tablet See Rx Instructions .ROUTE .COMPLEX Qty: 90 1RF Dose Instruction: TAKE 1 TABLET BY MOUTH EVERY DAY Rx Instructions: TAKE 1 TABLET BY MOUTH EVERY DAY insulin glargine [Lantus Solostar U-100 Insulin] 100 unit/mL (3 mL) insulin pen 50 unit SUBCUT DAILY Qty: 45 0RF Novolog FlexPen U-100 Insulin 100 unit/mL (3 mL) insulin pen See Rx Instructions .ROUTE .COMPLEX Qty: 30 0RF Dose Instruction: INJECT DIRECTED SUBCUTANEOUSLY 3 TIMES DAILY AFTER MEALS BASED ON SLIDING SCALE, MAX 40 UNITS/DAY Rx Instructions: INJECT DIRECTED SUBCUTANEOUSLY 3 TIMES DAILY AFTER MEALS BASED ON SLIDING SCALE, MAX 45 UNITS/DAY atorvastatin 80 mg tablet 80 mg PO DAILY Qty: 90 0RF Jardiance 10 mg tablet See Rx Instructions .ROUTE .COMPLEX Qty: 90 0RF Dose Instruction: TAKE 1 TABLET BY MOUTH EVERY DAY IN THE MORNING Rx Instructions: TAKE 1 TABLET BY MOUTH EVERY DAY IN THE MORNING buspirone 10 mg tablet 10 mg PO BID Qty: 60 2RF (DME) blood-glucose meter [OneTouch Ultra2 Meter] Kit See Rx Instructions .Route Qty: 1 0RF Rx Instructions: check sugar 4-6 times a day (DME) lancets [OneTouch UltraSoft Lancets] Misc See Rx Instructions .Route Qty: 200 1RF Rx Instructions: As directed aspirin 81 mg tablet,delayed release (DR/EC) See Rx Instructions .ROUTE .COMPLEX Qty: 90 1RF Dose Instruction: TAKE 1 TABLET BY MOUTH EVERY DAY Rx Instructions: TAKE 1 TABLET BY MOUTH EVERY DAY (DME) pen needle, diabetic [BD Ultra-Fine Short Pen Needle] 31 gauge x 5/16 needle See Rx Instructions .ROUTE .MEDSUPPLY Qty: 200 0RF Rx Instructions: As directed (DME) OneTouch Ultra Test Strip See Rx Instructions .ROUTE .COMPLEX Qty: 400 1RF Dose Instruction: CHECK SUGAR 4-6 TIMES DAILY Rx Instructions: CHECK SUGAR 4-6 TIMES DAILY carvedilol 6.25 mg tablet 6.25 mg PO BID Qty: 180 2RF clopidogrel 75 mg tablet See Rx Instructions .ROUTE .COMPLEX Qty: 30 2RF Hold Instructions: Resume on 07/04/23. Dose Instruction: TAKE 1 TABLET BY MOUTH EVERY DAY Rx Instructions: TAKE 1 TABLET BY MOUTH EVERY DAY meloxicam 15 mg tablet 15 mg PO DAILY Qty: 30 5RF Hold Instructions: Resume on 07/03/23. Discharge Orders: Discharge Order (Routine); Ordered 11/15/23 Ordered By: Michael Gillette Referrals: Kasey Naqvi DO [Primary Care Provider] - 11/21/23 1:30 pm Tiffany Valdez FNP [Nurse Practitioner] - 12/16/23 1:00 pm Diet: Cardiac and Diabetic Activity: Increase activity as tolerated Patient Instructions: Coronary Angioplasty (DC), Post Angiogram Home Care Instructions Discharge Date/Time: 11/15/23 09:26 Discharge Attestations Time Spent in Discharge Care*: less than 30 min Quality Metrics Clinical Quality Measures [ No reported AMI, CVA or VTE this stay] Coding Level of Care Code Acute Code for Chg Fwd
[2023-11-15 07:58] VITALS: BP 121/71; PULSE 71; RESP 24; TEMP 36.9; O2SAT 96
[2023-11-15] MEDS: clopidogrel 75 mg Tablet PO (08:19)
[2023-11-15] MEDS: aspirin 81 mg EC Tablet PO (08:19)
[2023-11-15] MEDS: atorvastatin 40 mg Tablet 80 MG PO (08:19)
[2023-11-15] MEDS: carvedilol 6.25 mg Tablet PO (08:19)
[2023-11-15] MEDS: insulin lispro 100 unit/1 mL SUBCUT (08:19)
--- NOTE | 2023-11-15 09:25 | PC.NURSE ---
Discharge Note Patient discharged to home via POV accompanied by spouse. Discharge instructions reviewed with patient and/or office machines sales representative. Mobile pharmacy medications and/or prescriptions provided. Belongings/home medications returned.
== END 2023-11-15 09:26 | disposition home or self-care (01) ==
LOC: CCL 08:35 → CSU 12:23
PROVIDERS: PCP Family Medicine; Visit Provider Internal Medicine
DX: I25.10 Atherosclerotic heart disease of native coronary artery without angina pectoris (principal); E11.9 Type 2 diabetes mellitus without complications; Z95.1 Presence of aortocoronary bypass graft; I10 Essential (primary) hypertension; E78.5 Hyperlipidemia, unspecified; I25.2 Old myocardial infarction; E66.9 Obesity, unspecified; Z68.38 Body mass index [BMI] 38.0-38.9, adult; Z82.49 Family history of ischemic heart disease and other diseases of the circulatory system
CPT/HCPCS: 36415; 36416; 80048; 82962; 85025; 85347; 85730; 93458; 96365; 96372; 96374; 96375; 99152; 99153; C1725; C1769; C1874; C1887; C1894; C9600; J1644; J1815; J2250; J3010; J7030; Q0163; Q9967

== ENCOUNTER 2023-11-17 18:02 | Emergency (ER) | payer MEDICAID, SELFPAY ==
--- NOTE | 2023-11-17 18:03 | ECG_ITS ---
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 Measurements Intervals [place] Rate: 84 P: 24 HI: 151 QRS: -2 QRSD: 85 T: 52 QT: 361 QTc: 428 Interpretive Statements SINUS RHYTHM POSSIBLE ANTERIOR MYOCARDIAL INFARCTION , OF INDETERMINATE AGE [30 ms Q WAVE IN V3/V4, OR R < 0.2 mV IN V4] Compared to ECG 11/03/2023 23:29:22 Myocardial infarct finding now present T-wave abnormality no longer present Electronically Signed On 11-18-2023 14:29:31 CDT by Kirk Betancourt M.D. [id number]
[2023-11-17 18:09] VITALS: BP 145/84; PULSE 78; RESP 16; TEMP 36.5; O2SAT 99
--- NOTE | 2023-11-17 19:04 | XRR_ITS ---
PROCEDURE INFORMATION: Exam: XR Chest Exam date and time: 11/17/2023 7:10 PM Age: 37 years old Clinical indication: Angina pectoris; Patient HX: Chest pain; SOB; HX cabg x 1yr ago TECHNIQUE: Imaging protocol: Radiologic exam of the chest. Views: 1 view. COMPARISON: CR (CHEST, ) 10/15/2023 10:06 PM FINDINGS: Lungs: No focal consolidation. Pleural spaces: No pleural effusion. No pneumothorax. Heart/Mediastinum: No cardiomegaly. Bones/joints: No acute findings. XR/XR chest 1V portable [id number] IMPRESSION: No acute findings.
[2023-11-17 19:12] VITALS: BP 141/103; PULSE 89; RESP 17; O2SAT 99
[2023-11-17 19:17] LABS: Basophils # 0.1 10^3/uL (0.0-0.1); Basophils % 0.7 %; Eosinophils # 0.2 10^3/uL (0.0-0.8); Eosinophils % 2.5 %; Hematocrit 44.8 % (36-47); Lymphocytes # 2.3 10^3/uL (0.8-4.8); Lymphocytes % 24.6 %; Mean Corpuscular HGB Conc 32.8 g/dL (30-55); Mean Corpuscular Hemoglobin 29.1 pg (27-33); Mean Corpuscular Volume 88.5 fl (85-98); Mean Platelet Volume 9.2 fL (7.4-10.4); Monocytes # 0.6 10^3/uL (0.2-0.9); Monocytes % 6.7 %; Neutrophils # 6.17 10^3/uL (1.8-7.7); Neutrophils % 65.3 %; Nucleated Red Blood Cells % 0 %; Platelet Count 293 10^3/cmm (157-399); Red Blood Count 5.06 10^6/uL (3.85-5.65); Red Cell Distribution Width 12.5 % (12.1-15.1); White Blood Count 9.46 10^3/uL (3.29-11.43)
[2023-11-17] MEDS: nitroglycerin 0.4 mg sublingual Tablet 0.400000000000000022 MG SUBLINGUAL (19:27)
[2023-11-17 19:30] VITALS: PULSE 93; RESP 19; O2SAT 98
[2023-11-17 20:00] VITALS: BP 125/75; PULSE 72; RESP 20; O2SAT 97
[2023-11-17 20:08] LABS: INR 0.97 (0.8-1.2)
[2023-11-17 20:09] LABS: Partial Thromboplastin Time 22.8 SECONDS (23.9-36.7)
[2023-11-17 20:15] LABS: Troponin(5th) Baseline 9 ng/L (0-10)
[2023-11-17 20:22] LABS: Blood Urea Nitrogen 16 mg/dL (6-20); Calcium 8.6 mg/dL (8.5-10.5); Carbon Dioxide 22 mmol/L (22-29); Chloride 103 mmol/L (98-107); Creatinine Clr Calc Pharmacy 329.6432; Glomerular Filtration Rate 253.2 mL/min (90-130); Glucose 129 mg/dL (65-115); NT Pro B Type Natriuretic Pept 117 pg/mL (0-125); Osmolality Calculated 289 mOsm/kg (285-295); Sodium 138 mmol/L (136-145)
[2023-11-17] MEDS: lidocaine 2% viscous 15 ML, aluminum-mag hydrox-simethicon 30 ML, sucralfate oral liq 1 GM PO (20:28)
--- NOTE | 2023-11-17 20:55 | ED_ITS ---
HPI - Chest Pain 2 General: Chief Complaint: Chest Pain Stated Complaint: Chest is Tight Time Seen by Provider: 11/17/23 19:04 Source: patient and family Mode of arrival: ambulatory Limitations: no limitations History of Present Illness: Patient woke up today with arm pain shooting down her right arm and side of her chest. Then 2 hours of arrival pain increased with also pain going left arm. She reports some shortness of breath and lightheadedness that comes with the pain. Had a recent stent placed for a failed stress test within the last month. Has a history of a three-vessel CABG. Also has insulin-dependent diabetes. Patient ports pain is currently a 6 out of 10. MD complaint: chest pain Risk Factors: Coronary artery disease risk factors: diabetes and hyperlipidemia Review of Systems 2 General: Reports: 10 or more systems reviewed and unremarkable except in HPI and below PFSH ED 2 PFSH: Medical History Bed bug bite Hypertension Abnormal cardiovascular stress test Chest pain CAD (coronary artery disease) STEMI (ST elevation myocardial infarction) Family history of premature CAD Nicotine dependence, cigarettes, with unspecified nicotine-induced disorders Osteoarthritis of left knee High cholesterol delivery delivered Diabetes type 2, uncontrolled Hypercholesteremia Family history of early CAD Surgical History Hx of CABG History of delivery x 2 H/O tubal ligation Family History Father Diabetes Heart disease Mother Diabetes COPD (chronic obstructive pulmonary disease) Emphysema lung Heart disease Kidney failure Arthritis Social History Smoking and tobacco/nicotine status: never used tobacco/nicotine Second hand smoke exposure: No Substance/Drug Use: never Adopted: No Caregiver/support person: No Lives independently: Yes Housing: House Marital status: Number of children: 2 Highest education level completed: 9th Grade service: No Female Reproductive History: Date of last menstrual period: 11/17/23 Physical Exam 2 Const: COMMON NORMALS: no acute distress, average body habitus, patient oriented x3, healthy appearing, alert and well nourished GENERAL APPEARANCE: well kempt and well developed HENMT: COMMON NORMALS: normocephalic, atraumatic, external ears normal and moist oral mucous membranes HEAD & SCALP: normocephalic and atraumatic E XTERNAL EAR: Yes external ears normal Eye: COMMON NORMALS: Equal, round and reactive pupils present, EOMs intact bilaterally and conjunctivae normal CONJUNCTIVA: Yes conjunctivae normal P UPIL: Yes Equal, round and reactive pupils present Neck/C-Spine: COMMON NORMALS: full ROM, no lymphadenopathy and supple Chest: CHEST: Yes Symmetrical chest wall rise and No Surgical scars present (Chest) Resp: COMMON NORMALS: normal respiratory effort, No retractions, No use of accessory muscles and clear to auscultation bilaterally AUSCULTATION: clear to auscultation bilaterally Cardio: COMMON NORMALS: regular rate, regular rhythm, S1 normal heart sound present, S2 normal heart sound present, No gallops present (Cardio), No clicks present (Cardio), No murmurs present (Cardio) and No rub (Cardio) RATE: r egular rate RHYTHM: regular rhythm HEART SOUNDS: S1 normal heart sound present, S2 normal heart sound present and no murmurs PERIPHERAL PULSES: o ther (Radial pulses 2+ and symmetric) GI: COMMON NORMALS: Soft to palpation, non-tender and no masses INSPECTION: No abdominal distension PALPATION: Yes Soft to palpation, No Guarding due to palpation present (GI) and No Rebound tenderness present : COMMON NORMALS: Yes no CVA tenderness BLADDER/KIDNEY EXAM: Yes no CVA tenderness Back/Pelvis: COMMON NORMALS: no CVA tenderness Extremity: COMMON NORMALS: normal to inspection, full ROM, capillary refill normal and no clubbing, cyanosis or edema Neuro: COMMON NORMALS: patient oriented x3 SENSORIUM/ORIENTATION: Yes alert Psych: APPEARANCE: Yes well kempt Skin: COMMON NORMALS: no rashes or lesions noted, no wounds, turgor normal and no jaundice GENERAL SKIN EXAM: no rashes or lesions noted and turgor normal Course 2 ED course: Prolonged ER course secondary to delay in getting labs. Over 2 hours until the first troponin was resulted. Reevaluation(s): Reevaluation #1: First troponin came back at 9. So GI cocktail was given. She reports GI cocktail did not relieve any of her pain. So morphine was given. Given her elevated risk factors labs continue to watch and get a 2-hour troponin. Time: 20:58 Vital Signs: Vital signs: Vital Signs Temperature 97.7 F 11/17/23 18:09 Pulse Rate 72 11/17/23 20:00 Respiratory Rate 20 H 11/17/23 21:12 Blood Pressure 125/75 11/17/23 20:00 Pulse Oximetry 100 11/17/23 21:12 Oxygen Delivery Me thod Room Air 11/17/23 19:12 MDM - Chest Pain Medical Decision Making 37-year-old female with extensive cardiac history including three-vessel CABG and recent stent placement for abnormal stress test comes in with chest pain woke up with chest pain today hurting down her right arm got worse start going down her left arm. Patient reports getting worse and going on the other arm is why she came in. Pain is right upper chest and substernal. Cannot quite get it until it is worse with exertion. She took 2 aspirin has not taken any nitro. She received nitro here and reported no relief just made her feel weird and then we tried a GI cocktail that had no relief. The patient was given IV morphine while awaiting second troponin to verify no delta the go given that the pain started this morning and troponin is only 9 that is very encouraging. However she is extremely high risk given her history. Second troponin has come back stable at 9. The patient will be discharged home. Likely noncardiac chest pain along with anxiety and episodes of possible near syncope. Patient advised to notify her glove boarder tomorrow. Differential Diagnosis Likely acute myocardial infarction Medical Records I reviewed the patient's medical records. Lab Data I reviewed the patient's lab results. 11/17/23 19:10 11/17/23 19:49 Radiology Impressions Chest X-Ray 11/17/23 19:04 IMPRESSION: No acute findings. Laboratory Results WBC 9.46 10^3/uL (3.29-11.43) 11/17/23 19:10 RBC 5.06 10^6/uL (3.85-5.65) 11/17/23 19:10 Hgb 14.70 g/dL (11.27-16.99) 11/17/23 19:10 Hct 44.8 % (36-47) 11/17/23 19:10 MCV 88.5 fl (85-98) 11/17/23 19:10 MCH 29.1 pg (27-33) 11/17/23 19:10 MCHC 32.8 g/dL (30-55) 11/17/23 19:10 RDW 12.5 % (12.1-15.1) 11/17/23 19:10 Plt Count 293 10^3/cmm (157-399) 11/17/23 19:10 MPV 9.2 fL (7.4-10.4) 11/17/23 19:10 Neut % (Auto) 65.3 % 11/17/23 19:10 Lymph % (Auto) 24.6 % 11/17/23 19:10 [place] % (Auto) 6.7 % 11/17/23 19:10 Eos % (Auto) 2.5 % 11/17/23 19:10 Baso % (Auto) 0.7 % 11/17/23 19:10 Neut # (Auto) 6.17 10^3/uL (1.8-7.7) 11/17/23 19:10 Lymph # (Auto) 2.3 10^3/uL (0.8-4.8) 11/17/23 19:10 [place] # (Auto) 0.6 10^3/uL (0.2-0.9) 11/17/23 19:10 Eos # (Auto) 0.2 10^3/uL (0.0-0.8) 11/17/23 19:10 Baso # (Auto) 0.1 10^3/uL (0.0-0.1) 11/17/23 19:10 Nucleated RBC % (auto) 0 % 11/17/23 19:10 Nucleated RBCs # 0.0 /100WBC 11/17/23 19:10 PT 13.20 SECONDS (12.1-14.9) 11/17/23 19:49 INR 0.97 (0.8-1.2) 11/17/23 19:49 APTT 22.8 SECONDS (23.9-36.7) L 11/17/23 19:49 Sodium 138 mmol/L (136-145) 11/17/23 19:49 Potassium 4.0 mmol/L (3.5-5.1) 11/17/23 19:49 Chloride 103 mmol/L (98-107) 11/17/23 19:49 Carbon Dioxide 22 mmol/L (22-29) 11/17/23 19:49 Anion Gap 17.0 (5-19) 11/17/23 19:49 BUN 16 mg/dL (6-20) 11/17/23 19:49 Creatinine 0.3 mg/dL (0.5-0.9) L 11/17/23 19:49 GFR Calculation 253.2 mL/min (90-130) H 11/17/23 19:49 Glucose 129 mg/dL (65-115) H 11/17/23 19:49 Calculated Osmolality 289 mOsm/kg (285-295) 11/17/23 19:49 Calcium 8.6 mg/dL (8.5-10.5) 11/17/23 19:49 Troponin T Baseline 9 ng/L (0-10) 11/17/23 19:49 Troponin T 120 Minute 9.79 ng/L (0-10) 11/17/23 21:32 Delta Troponin T 0.79 ABS# (0-10) 11/17/23 21:32 NT-Pro-B Natriuret Pep 117 pg/mL (0-125) 11/17/23 19:49 All radiology interpretation(s) finalized by discharge ED provider radiology interpretation(s): X-ray of the chest performed and I see no acute abnormality. EKG Data EKG 1: I personally reviewed and interpreted this EKG as follows: EKG interpretation date: 11/17/23 EKG interpretation time: 18:05 Interpretation: Sinus rhythm rate of 84, no prolonged intervals upon QTc. Normal axis. No ST elevations or depressions. Discharge Plan Discharge Patient Disposition: Home Clinical Impression: Near syncope Chest pain Qualifiers: Chest pain type: other chest pain Qualified Code(s): R07.89 - Other chest pain Condition: Stable Prescriptions: No Action nitroglycerin [Nitrostat] 0.4 mg tablet, sublingual 0.4 mg sublingual Q5M PRN (Reason: chest pain) Qty: 25 1RF Rx Instructions: do not exceed 3 doses per episode spironolactone 50 mg tablet See Rx Instructions .ROUTE .COMPLEX Qty: 90 1RF Dose Instruction: TAKE 1 TABLET BY MOUTH EVERY DAY Rx Instructions: TAKE 1 TABLET BY MOUTH EVERY DAY insulin glargine [Lantus Solostar U-100 Insulin] 100 unit/mL (3 mL) insulin pen 50 unit SUBCUT DAILY Qty: 45 0RF Novolog FlexPen U-100 Insulin 100 unit/mL (3 mL) insulin pen See Rx Instructions .ROUTE .COMPLEX Qty: 30 0RF Dose Instruction: INJECT DIRECTED SUBCUTANEOUSLY 3 TIMES DAILY AFTER MEALS BASED ON SLIDING SCALE, MAX 40 UNITS/DAY Rx Instructions: INJECT DIRECTED SUBCUTANEOUSLY 3 TIMES DAILY AFTER MEALS BASED ON SLIDING SCALE, MAX 45 UNITS/DAY atorvastatin 80 mg tablet 80 mg PO DAILY Qty: 90 0RF Jardiance 10 mg tablet See Rx Instructions .ROUTE .COMPLEX Qty: 90 0RF Dose Instruction: TAKE 1 TABLET BY MOUTH EVERY DAY IN THE MORNING Rx Instructions: TAKE 1 TABLET BY MOUTH EVERY DAY IN THE MORNING buspirone 10 mg tablet 10 mg PO BID Qty: 60 2RF (DME) blood-glucose meter [OneTouch Ultra2 Meter] Kit See Rx Instructions .Route Qty: 1 0RF Rx Instructions: check sugar 4-6 times a day (DME) lancets [OneTouch UltraSoft Lancets] Misc See Rx Instructions .Route Qty: 200 1RF Rx Instructions: As directed aspirin 81 mg tablet,delayed release (DR/EC) See Rx Instructions .ROUTE .COMPLEX Qty: 90 1RF Dose Instruction: TAKE 1 TABLET BY MOUTH EVERY DAY Rx Instructions: TAKE 1 TABLET BY MOUTH EVERY DAY (DME) pen needle, diabetic [BD Ultra-Fine Short Pen Needle] 31 gauge x 5/16 needle See Rx Instructions .ROUTE .MEDSUPPLY Qty: 200 0RF Rx Instructions: As directed (DME) OneTouch Ultra Test Strip See Rx Instructions .ROUTE .COMPLEX Qty: 400 1RF Dose Instruction: CHECK SUGAR 4-6 TIMES DAILY Rx Instructions: CHECK SUGAR 4-6 TIMES DAILY carvedilol 6.25 mg tablet 6.25 mg PO BID Qty: 180 2RF clopidogrel 75 mg tablet See Rx Instructions .ROUTE .COMPLEX Qty: 30 2RF Hold Instructions: Resume on 07/04/23. Dose Instruction: TAKE 1 TABLET BY MOUTH EVERY DAY Rx Instructions: TAKE 1 TABLET BY MOUTH EVERY DAY meloxicam 15 mg tablet 15 mg PO DAILY Qty: 30 5RF Hold Instructions: Resume on 07/03/23. Discharge Orders: Discharge ED (Routine); Ordered 11/17/23 Ordered By: Dom More Referrals: Kasey Naqvi DO [Primary Care Provider] - Discharge Diet: Cardiac Discharge Activity: Resume usual activity Patient Instructions: Chest Pain - Noncardiac Coding Level of Care Code ED Clipper And Turner for Marii Alegria
[2023-11-17 21:12] VITALS: RESP 20; O2SAT 100
[2023-11-17] MEDS: morphine 4 mg/mL SDV 1 mL 2 MG IVP (21:12)
--- NOTE | 2023-11-17 21:21 | ECG_ITS ---
[facility] Test Date: 2023-11-17 Pat Name: Oralia Moralez Department: Room: Gender: Female Optimization Consultant: : 1985 Requested By: Dom More Order Number: [id number] Maki MD: Kirk Betancourt M.D. Measurements Intervals [place] Rate: 77 P: 53 DC: 154 QRS: 8 QRSD: 94 T: 96 QT: 380 QTc: 433 Interpretive Statements SINUS RHYTHM POSSIBLE LEFT ATRIAL ENLARGEMENT [-0.1mV P-WAVE IN V1/V2] POSSIBLE RIGHT VENTRICULAR CONDUCTION DELAY [RSR (QR) IN V1/V2] POSSIBLE ANTERIOR MYOCARDIAL INFARCTION , OF INDETERMINATE AGE [30 ms Q WAVE IN V3/V4, OR R < 0.2 mV IN V4] Compared to ECG 11/17/2023 18:03:08 ST (T wave) deviation now present Myocardial infarct finding still present Electronically Signed On 11-18-2023 14:33:25 CDT by Kirk Betancourt M.D. [id number]
[2023-11-17 22:03] LABS: Troponin 5 2HR 9.79 ng/L (0-10); Troponin 5 2HR Delta 0.79 ABS# (0-10)
== END 2023-11-17 22:34 | disposition home or self-care (01) ==
PROVIDERS: Emergency Provider Emergency Medicine; PCP Family Medicine
DX: R55 Syncope and collapse (principal); R07.89 Other chest pain; Z79.02 Long term (current) use of antithrombotics/antiplatelets; Z79.82 Long term (current) use of aspirin; Z79.4 Long term (current) use of insulin; I10 Essential (primary) hypertension; I25.10 Atherosclerotic heart disease of native coronary artery without angina pectoris; I25.2 Old myocardial infarction; E11.9 Type 2 diabetes mellitus without complications; Z95.1 Presence of aortocoronary bypass graft
CPT/HCPCS: 36415; 71045; 80048; 83880; 84484; 85025; 85610; 85730; 93005; 96374; 99285; J2270

== ENCOUNTER 2023-11-18 03:21 | Emergency (ER) | payer MEDICAID, SELFPAY ==
[2023-11-18 03:31] VITALS: BP 172/109; PULSE 79; RESP 16; TEMP 36.7; O2SAT 98; BMI 36.9
--- NOTE | 2023-11-18 03:41 | ECG_ITS ---
[facility] Test Date: 2023-11-18 Pat Name: Oralia Moralez Department: Room: Gender: Female Technology Sales Representative: : 1985 Requested By: Simba Murcia Order Number: [id number] Maki MD: Kirk Betancourt M.D. Measurements Intervals [place] Rate: 75 P: 33 UT: 158 QRS: 31 QRSD: 96 T: 75 QT: 382 QTc: 427 Interpretive Statements SINUS RHYTHM NONSPECIFIC T-WAVE ABNORMALITY Compared to ECG 11/17/2023 21:21:29 T-wave abnormality now present Myocardial infarct finding no longer present ST (T wave) deviation no longer present Electronically Signed On 11-18-2023 14:30:10 CDT by Kirk Betancourt M.D. [id number]
[2023-11-18 04:08] VITALS: PULSE 84; RESP 16; O2SAT 99
[2023-11-18] MEDS: ipratropium-albuterol 3 mL Neb INHALATION (04:08)
[2023-11-18 04:15] VITALS: PULSE 77
--- NOTE | 2023-11-18 04:17 | ED_ITS ---
HPI - SOB/Dyspnea 2 General: Chief Complaint: Shortness of Breath/Dyspnea Stated Complaint: SOB Time Seen by Provider: 11/18/23 03:41 History of Present Illness: HPI Narrative: 38 year old female seen earlier in the e vening with chest discomfort. She has a history of coronary disease with a recent stent placement. She returns this morning with shortness of breath. She noticed that she drove her car earlier, and that there is an exhaust leak in the car, and that every time she drives the car she seems to get short of breath with some chest tightness. She denies any chest pain currently. No fever. No increased cough. Associated symptoms: Reports chest pain (earlier); Deny abdominal pain, fever(s), palpitations or vomiting Review of Systems 2 Const: Denies: fever(s) ENMT: Denies: throat pain Card: Reports: chest pain (earlier); Denies: palpitations Resp: Reports: dyspnea; Denies: productive cough or non-productive cough GI: Denies: abdominal pain or vomiting PFSH ED 2 PFSH: Medical History Bed bug bite Hypertension Abnormal cardiovascular stress test Chest pain CAD (coronary artery disease) STEMI (ST elevation myocardial infarction) Family history of premature CAD Nicotine dependence, cigarettes, with unspecified nicotine-induced disorders Osteoarthritis of left knee High cholesterol delivery delivered Diabetes type 2, uncontrolled Hypercholesteremia Family history of early CAD Surgical History Hx of CABG History of delivery x 2 H/O tubal ligation Family History Father Diabetes Heart disease Mother Diabetes COPD (chronic obstructive pulmonary disease) Emphysema lung Heart disease Kidney failure Arthritis Social History Smoking and tobacco/nicotine status: never used tobacco/nicotine Second hand smoke exposure: No Substance/Drug Use: never Adopted: No Caregiver/support person: No Lives independently: Yes Housing: House Marital status: Number of children: 2 Highest education level completed: 9th Grade service: No Physical Exam 2 Const: GENERAL APPEARANCE: anxious; not ill appearing and not frail appearing HENMT: COMMON NORMALS: normocephalic, atraumatic and Normal external nose present HEAD & SCALP: normocephalic and atraumatic FACE & SINUS: normal facial exam and face symmetric NOSE: Normal external nose present Eye: COMMON NORMALS: Equal, round and reactive pupils present and EOMs intact bilaterally PUPIL: Yes Equal, round and reactive pupils present Neck/C-Spine: GENERAL: Yes trachea midline Chest: CHEST: Yes Symmetrical chest wall rise Resp: COMMON NORMALS: normal respiratory effort, No retractions and No use of accessory muscles AUSCULTATION: wheezes (intermittent) Cardio: COMMON NORMALS: regular rate and regular rhythm RATE: regular rate RHYTHM: regular rhythm GI: COMMON NORMALS: Normal to inspection, nondistended, normoactive bowel sounds present Extremity: COMMON NORMALS: no pedal edema Neuro: LORENZO COMA SCALE: document GCS findings Lorenzo coma scale eye opening: Spontaneous [place] coma scale verbal response: Orientated Lorenzo coma scale motor response: Obey commands [place] coma scale total score: 15 S ENSORY EXAM: Yes extremities (intact) Psych: COMMON NORMALS: speech normal SPEECH: Yes normal speech Skin: COMMON NORMALS: no rashes or lesions noted GENERAL SKIN EXAM: no rashes or lesions noted Course 2 Vital Signs: Vital signs: Vital Signs Temperature 98.0 F 11/18/23 06:58 Pulse Rate 75 11/18/23 06:58 Respiratory Rate 16 11/18/23 06:58 Blood Pressure 130/79 11/18/23 06:58 Pulse Oximetry 97 11/18/23 06:58 Oxygen Delivery Me thod Room Air 11/18/23 04:08 MDM - SOB/Dyspnea Medical Decision Making EKG is stable from prior. Troponin is normal and stable from prior. BNP is normal. other laboratory not remarkable. She requested carbon monoxide testing, which is also normal. CXR done earlier was normal. She has improved after breathing treatment here and she'll be allowed discharge too return for any worsening symptoms. Lab Data 11/18/23 02:46 11/18/23 02:46 Labs/Radiology: Laboratory Results WBC 9.72 10^3/uL (3.29-11.43) 11/18/23 02:46 RBC 4.94 10^6/uL (3.85-5.65) 11/18/23 02:46 Hgb 14.20 g/dL (11.27-16.99) 11/18/23 02:46 Hct 43.1 % (36-47) 11/18/23 02:46 MCV 87.2 fl (85-98) 11/18/23 02:46 MCH 28.7 pg (27-33) 11/18/23 02:46 MCHC 32.9 g/dL (30-55) 11/18/23 02:46 RDW 12.5 % (12.1-15.1) 11/18/23 02:46 Plt Count 289 10^3/cmm (157-399) 11/18/23 02:46 MPV 9.2 fL (7.4-10.4) 11/18/23 02:46 Neut % (Auto) 64.3 % 11/18/23 02:46 Lymph % (Auto) 25.3 % 11/18/23 02:46 [place] % (Auto) 6.9 % 11/18/23 02:46 Eos % (Auto) 2.6 % 11/18/23 02:46 Baso % (Auto) 0.6 % 11/18/23 02:46 Neut # (Auto) 6.25 10^3/uL (1.8-7.7) 11/18/23 02:46 Lymph # (Auto) 2.5 10^3/uL (0.8-4.8) 11/18/23 02:46 [place] # (Auto) 0.7 10^3/uL (0.2-0.9) 11/18/23 02:46 Eos # (Auto) 0.3 10^3/uL (0.0-0.8) 11/18/23 02:46 Baso # (Auto) 0.1 10^3/uL (0.0-0.1) 11/18/23 02:46 Nucleated RBC % (auto) 0 % 11/18/23 02:46 Nucleated RBCs # 0.0 /100WBC 11/18/23 02:46 Specimen Type Venous 11/18/23 05:00 Sample Site Radial, left 11/18/23 05:00 Jeff Test N/a 11/18/23 05:00 A-a O2 Gradient 8.6 mmHg (5-10) 11/18/23 05:00 Hematocrit 44.9 % (37-47) 11/18/23 05:00 Hgb O2 Saturation 51.9 % (95-100) L 11/18/23 05:00 Carboxyhemoglobin 1.4 %THgb (0.4-20.1) 11/18/23 05:00 Methemoglobin 0.7 % (0.4-1.5) 11/18/23 05:00 Total Hemoglobin 14.6 g/dL (12-16) 11/18/23 05:00 O2 Delivery Device Room air 11/18/23 05:00 FiO2 21.0 % 11/18/23 05:00 Bin Packer ID Ed 11/18/23 05:00 Sodium 136 mmol/L (136-145) 11/18/23 02:46 Potassium 3.8 mmol/L (3.5-5.1) 11/18/23 02:46 Chloride 101 mmol/L (98-107) 11/18/23 02:46 Carbon Dioxide 22 mmol/L (22-29) 11/18/23 02:46 Anion Gap 16.8 (5-19) 11/18/23 02:46 BUN 14 mg/dL (6-20) 11/18/23 02:46 Creatinine 0.4 mg/dL (0.5-0.9) L 11/18/23 02:46 GFR Calculation 180.6 mL/min (90-130) H 11/18/23 02:46 Glucose 116 mg/dL (65-115) H 11/18/23 02:46 Calculated Osmolality 283 mOsm/kg (285-295) L 11/18/23 02:46 Calcium 9.1 mg/dL (8.5-10.5) 11/18/23 02:46 Total Bilirubin 0.3 mg/dL (0.15-1.2) 11/18/23 02:46 AST 17 U/L (0-32) 11/18/23 02:46 ALT 23 U/L (0-33) 11/18/23 02:46 Alkaline Phosphatase 73 U/L (35-105) 11/18/23 02:46 Creatine Kinase 48 U/L (26-192) 11/18/23 02:46 Troponin T Baseline 8 ng/L (0-10) 11/18/23 02:46 NT-Pro-B Natriuret Pep 118 pg/mL (0-125) 11/18/23 02:46 Total Protein 7.0 g/dL (6.6-8.7) 11/18/23 02:46 Albumin 4.2 g/dL (3.5-5.2) 11/18/23 02:46 Globulin 2.8 g/dL (1.3-4.6) 11/18/23 02:46 No radiology studies performed this visit Discharge Plan Discharge Patient Disposition: Home Clinical Impression: Wheezing, ANABELLA (generalized anxiety disorder) Condition: Stable Prescriptions: No Action nitroglycerin [Nitrostat] 0.4 mg tablet, sublingual 0.4 mg sublingual Q5M PRN (Reason: chest pain) Qty: 25 1RF Rx Instructions: do not exceed 3 doses per episode spironolactone 50 mg tablet See Rx Instructions .ROUTE .COMPLEX Qty: 90 1RF Dose Instruction: TAKE 1 TABLET BY MOUTH EVERY DAY Rx Instructions: TAKE 1 TABLET BY MOUTH EVERY DAY insulin glargine [Lantus Solostar U-100 Insulin] 100 unit/mL (3 mL) insulin pen 50 unit SUBCUT DAILY Qty: 45 0RF Novolog FlexPen U-100 Insulin 100 unit/mL (3 mL) insulin pen See Rx Instructions .ROUTE .COMPLEX Qty: 30 0RF Dose Instruction: INJECT DIRECTED SUBCUTANEOUSLY 3 TIMES DAILY AFTER MEALS BASED ON SLIDING SCALE, MAX 40 UNITS/DAY Rx Instructions: INJECT DIRECTED SUBCUTANEOUSLY 3 TIMES DAILY AFTER MEALS BASED ON SLIDING SCALE, MAX 45 UNITS/DAY atorvastatin 80 mg tablet 80 mg PO DAILY Qty: 90 0RF Jardiance 10 mg tablet See Rx Instructions .ROUTE .COMPLEX Qty: 90 0RF Dose Instruction: TAKE 1 TABLET BY MOUTH EVERY DAY IN THE MORNING Rx Instructions: TAKE 1 TABLET BY MOUTH EVERY DAY IN THE MORNING buspirone 10 mg tablet 10 mg PO BID Qty: 60 2RF (DME) blood-glucose meter [OneTouch Ultra2 Meter] Kit See Rx Instructions .Route Qty: 1 0RF Rx Instructions: check sugar 4-6 times a day (DME) lancets [OneTouch UltraSoft Lancets] Misc See Rx Instructions .Route Qty: 200 1RF Rx Instructions: As directed aspirin 81 mg tablet,delayed release (DR/EC) See Rx Instructions .ROUTE .COMPLEX Qty: 90 1RF Dose Instruction: TAKE 1 TABLET BY MOUTH EVERY DAY Rx Instructions: TAKE 1 TABLET BY MOUTH EVERY DAY (DME) pen needle, diabetic [BD Ultra-Fine Short Pen Needle] 31 gauge x 5/16 needle See Rx Instructions .ROUTE .MEDSUPPLY Qty: 200 0RF Rx Instructions: As directed (DME) OneTouch Ultra Test Strip See Rx Instructions .ROUTE .COMPLEX Qty: 400 1RF Dose Instruction: CHECK SUGAR 4-6 TIMES DAILY Rx Instructions: CHECK SUGAR 4-6 TIMES DAILY carvedilol 6.25 mg tablet 6.25 mg PO BID Qty: 180 2RF clopidogrel 75 mg tablet See Rx Instructions .ROUTE .COMPLEX Qty: 30 2RF Hold Instructions: Resume on 07/04/23. Dose Instruction: TAKE 1 TABLET BY MOUTH EVERY DAY Rx Instructions: TAKE 1 TABLET BY MOUTH EVERY DAY meloxicam 15 mg tablet 15 mg PO DAILY Qty: 30 5RF Hold Instructions: Resume on 07/03/23. Discharge Orders: Discharge ED (Routine); Ordered 11/18/23 Ordered By: Simba Huggins Referrals: Kasey Naqvi DO [Primary Care Provider] - 1-3 days Patient Instructions: Dyspnea (ED), Wheezing (ED), Opioid Safety, Pain Management Activity Restrictions/Additional Instructions: Your carbon monoxide level was normal in the emergency department, and your other laboratory values were not remarkable. Return for any return of or worsening symptoms. Avoid airway irritants or any other triggers to your breathing in the future if possible. Coding Level of Care Code ED Oxyacetylene Torch Operator for Marii Alegria
[2023-11-18 04:35] LABS: Basophils # 0.1 10^3/uL (0.0-0.1); Basophils % 0.6 %; Eosinophils # 0.3 10^3/uL (0.0-0.8); Eosinophils % 2.6 %; Hematocrit 43.1 % (36-47); Lymphocytes # 2.5 10^3/uL (0.8-4.8); Lymphocytes % 25.3 %; Mean Corpuscular HGB Conc 32.9 g/dL (30-55); Mean Corpuscular Hemoglobin 28.7 pg (27-33); Mean Corpuscular Volume 87.2 fl (85-98); Mean Platelet Volume 9.2 fL (7.4-10.4); Monocytes # 0.7 10^3/uL (0.2-0.9); Monocytes % 6.9 %; Neutrophils # 6.25 10^3/uL (1.8-7.7); Neutrophils % 64.3 %; Nucleated Red Blood Cells % 0 %; Platelet Count 289 10^3/cmm (157-399); Red Blood Count 4.94 10^6/uL (3.85-5.65); Red Cell Distribution Width 12.5 % (12.1-15.1); White Blood Count 9.72 10^3/uL (3.29-11.43)
[2023-11-18 04:59] LABS: Troponin(5th) Baseline 8 ng/L (0-10)
[2023-11-18 05:05] LABS: Alanine Aminotransferase 23 U/L (0-33); Albumin Level 4.2 g/dL (3.5-5.2); Alkaline Phosphatase 73 U/L (35-105); Anion Gap 16.8 (5-19); Aspartate Amino Transferase 17 U/L (0-32); Blood Urea Nitrogen 14 mg/dL (6-20); Calcium 9.1 mg/dL (8.5-10.5); Carbon Dioxide 22 mmol/L (22-29); Chloride 101 mmol/L (98-107); Creatine Phosphokinase 48 U/L (26-192); Creatinine Clr Calc Pharmacy 244.8778; Globulin 2.8 g/dL (1.3-4.6); Glomerular Filtration Rate 180.6 mL/min (90-130); Glucose 116 mg/dL (65-115); NT Pro B Type Natriuretic Pept 118 pg/mL (0-125); Osmolality Calculated 283 mOsm/kg (285-295); Potassium 3.8 mmol/L (3.5-5.1); Sodium 136 mmol/L (136-145); Total Bilirubin 0.3 mg/dL (0.15-1.2)
[2023-11-18 05:08] LABS: Alveolar-Arterial Oxygen Gradi 8.6 mmHg (5-10); Arterial Blood Gas Hematocrit 44.9 % (37-47); Carboxyhemoglobin 1.4 %THgb (0.4-20.1); HGB O2 Sat 51.9 % (95-100); Methemoglobin 0.7 % (0.4-1.5); Total Hemoglobin 14.6 g/dL (12-16)
[2023-11-18 05:09] LABS: Blood Gas Operator Identificat ED; Blood Gas Sample Site Radial, left; Blood Gas Sample Type Venous; Oxygen Device ROOM AIR
[2023-11-18 06:08] VITALS: BP 130/79; PULSE 75; RESP 16; O2SAT 97
[2023-11-18 06:58] VITALS: BP 130/79; PULSE 75; RESP 16; TEMP 36.7; O2SAT 97
== END 2023-11-18 06:08 | disposition home or self-care (01) ==
PROVIDERS: Emergency Provider Emergency Medicine; PCP Family Medicine
DX: R06.2 Wheezing (principal); F41.1 Generalized anxiety disorder; Z79.02 Long term (current) use of antithrombotics/antiplatelets; Z79.82 Long term (current) use of aspirin; Z79.4 Long term (current) use of insulin; Z95.1 Presence of aortocoronary bypass graft; I25.10 Atherosclerotic heart disease of native coronary artery without angina pectoris; I25.2 Old myocardial infarction; E11.9 Type 2 diabetes mellitus without complications
CPT/HCPCS: 36600; 80053; 82550; 82810; 83880; 84484; 85025; 93005; 94640; 99284

== ENCOUNTER 2023-11-20 00:23 | Emergency (ER) | payer MEDICAID, SELFPAY ==
[2023-11-20] VITALS (7 sets, daily range): BP systolic 122–146; BP diastolic 80–94; PULSE 65–79; RESP 16–18; TEMP 36.8; O2SAT 97–100; BMI 36.5
--- NOTE | 2023-11-20 00:28 | ECG_ITS ---
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 Measurements Intervals [place] Rate: 76 P: 25 [place]: 166 QRS: 5 QRSD: 98 T: 73 QT: 384 QTc: 433 Interpretive Statements SINUS RHYTHM POSSIBLE RIGHT VENTRICULAR CONDUCTION DELAY [RSR (QR) IN V1/V2] POSSIBLE ANTERIOR MYOCARDIAL INFARCTION , OF INDETERMINATE AGE [30 ms Q WAVE IN V3/V4, OR R < 0.2 mV IN V4] Compared to ECG 11/18/2023 03:36:41 Myocardial infarct finding now present T-wave abnormality no longer present Electronically Signed On 11-20-2023 18:15:43 CDT by Michael Gillette M.D. [email or web address]
--- NOTE | 2023-11-20 00:31 | XRR_ITS ---
PROCEDURE INFORMATION: Exam: XR Chest Exam date and time: 11/20/2023 12:37 AM Age: 38 years old Clinical indication: Angina; Additional info: Chest pain TECHNIQUE: Imaging protocol: Radiologic exam of the chest. Views: 1 view. COMPARISON: CR (CHEST, ) 11/17/2023 7:10 PM FINDINGS: Lungs: Unremarkable. No consolidation. Pleural spaces: Unremarkable. No pleural effusion. No pneumothorax. Heart/Mediastinum: Unremarkable. No cardiomegaly. Bones/joints: Sternotomy wires. XR/XR chest 1V portable [id number] IMPRESSION: Negative for infiltrate
--- NOTE | 2023-11-20 00:34 | ED_ITS ---
HPI - Chest Pain 2 General: Chief Complaint: Chest Pain Stated Complaint: chest tightness Time Seen by Provider: 11/20/23 00:27 History of Present Illness: 38-year-old female with a history of cor onary artery disease status post CABG and diabetes who presents the emergency room with chest pain. EMS reports initially they were called out for low blood sugar which when they got there it was not low. At that point she was complaining of some itchiness of her eyes and chest pain. On arrival here she still has those complaints. No cough. No shortness of breath. No nausea or vomiting. Review of Systems 2 Narrative: Constitutional symptoms: Negative except as documented in HPI. Skin symptoms: Negative except as documented in HPI. Eye symptoms: Negative except as documented in HPI. ENMT symptoms: Negative except as documented in HPI. Respiratory symptoms: Negative except as documented in HPI. Cardiovascular symptoms: Negative except as documented in HPI. Gastrointestinal symptoms: Negative except as documented in HPI. Genitourinary symptoms: Negative except as documented in HPI. Musculoskeletal symptoms: Negative except as documented in HPI. Neurologic symptoms: Negative except as documented in HPI. Psychiatric symptoms: Negative except as documented in HPI. Endocrine symptoms: Negative except as documented in HPI. PFSH ED 2 PFSH: Medical History Bed bug bite Hypertension Abnormal cardiovascular stress test Chest pain CAD (coronary artery disease) STEMI (ST elevation myocardial infarction) Family history of premature CAD Nicotine dependence, cigarettes, with unspecified nicotine-induced disorders Osteoarthritis of left knee High cholesterol delivery delivered Diabetes type 2, uncontrolled Hypercholesteremia Family history of early CAD Surgical History Hx of CABG History of delivery x 2 H/O tubal ligation Family History Father Diabetes Heart disease Mother Diabetes COPD (chronic obstructive pulmonary disease) Emphysema lung Heart disease Kidney failure Arthritis Social History Smoking and tobacco/nicotine status: never used tobacco/nicotine Second hand smoke exposure: No Substance/Drug Use: never Adopted: No Caregiver/support person: No Lives independently: Yes Housing: House Marital status: Number of children: 2 Highest education level completed: 9th Grade [employer] Information service: No Female Reproductive History: Date of last menstrual period: 11/18/23 Physical Exam 2 Narrative: EXAM NARRATIVE: General: Alert, no acute distress. Skin: Warm, dry. Head: Normocephalic, atraumatic. Neck: Supple, trachea midline. Eye: Extraocular movements are intact. Ears, nose, mouth and throat: mucosa moist. Cardiovascular: Regular, Normal peripheral perfusion. Respiratory: Lungs are clear to auscultation, respirations are non-labored, breath sounds are equal, Symmetrical chest wall expansion. Gastrointestinal: Soft, Nontender, Non distended, Normal bowel sounds. Musculoskeletal: Normal ROM, no deformity. Neurological: Alert and oriented, No focal neurological deficit observed. Psychiatric: Cooperative, appropriate mood & affect. Course 2 Vital Signs: Vital signs: Vital Signs Temperature 98.3 F 11/20/23 00:24 Pulse Rate 71 11/20/23 03:30 Respiratory Rate 16 11/20/23 03:30 Blood Pressure 122/80 11/20/23 03:30 Pulse Oximetry 98 11/20/23 03:30 Oxygen Delivery Me thod Room Air 11/20/23 00:24 MDM - Chest Pain Medical Decision Making Differential diagnosis for patient with chest pain includes but is not limited to and based on the above HPI, review of systems and physical exam: Pneumonia. unstable angina. angina. Acute coronary syndrome / [place]. Pulmonary embolism. Costochondritis / musculoskeletal. Pleurisy. Pericarditis. Esophageal spasm. Pancreatis. Cholecystitis. Workup: Lab work, chest X-ray and EKG ordered to evaluate, rule in and rule out above pathologies. EKG: Time 0028. Rate 76. Normal sinus rhythm, No ST-T changes, no ectopy, normal MO & QRS intervals, This was reviewed and interpreted by myself the ER physician at 0029 Chest x-ray: No acute process. No infiltrate. No pneumothorax. Sternotomy wires in place. This was reviewed and interpreted by myself the ER physician. Lab Review: Laboratory results were reviewed and interpreted by myself the emergency room physician. White count is 9. Hemoglobin 14. BUN and creatinine are 16 and 0.4. Initial troponin is negative. Repeat troponin is negative as well. Absolutely no change. Repeat EKG: Time 2:56 PM rate 61. Normal sinus rhythm, No ST-T changes, no ectopy, normal MO & QRS intervals, This was reviewed and interpreted by myself the ER physician at 2:58 AM no significant change from previous I reviewed the patient's medical record. Reexamination: Patient remained stable. She has no increased work of breathing. She is not tachycardic. She is not altered. Assessment and plan: Noncardiac chest pain - Discharged home - Discussed plan with patient. Answered any questions. - Evaluation and treatment of this problem were appropriate in the emergency setting. Lab Data 11/20/23 01:18 11/20/23 01:18 Radiology Impressions Chest X-Ray 11/20/23 00:31 IMPRESSION: Negative for infiltrate Laboratory Results WBC 8.98 10^3/uL (3.29-11.43) 11/20/23 01:18 RBC 4.91 10^6/uL (3.85-5.65) 11/20/23 01:18 Hgb 14.20 g/dL (11.27-16.99) 11/20/23 01:18 Hct 44.1 % (36-47) 11/20/23 01:18 MCV 89.8 fl (85-98) 11/20/23 01:18 MCH 28.9 pg (27-33) 11/20/23 01:18 MCHC 32.2 g/dL (30-55) 11/20/23 01:18 RDW 12.5 % (12.1-15.1) 11/20/23 01:18 Plt Count 274 10^3/cmm (157-399) 11/20/23 01:18 MPV 9.1 fL (7.4-10.4) 11/20/23 01:18 Neut % (Auto) 59.6 % 11/20/23 01:18 Lymph % (Auto) 29.3 % 11/20/23 01:18 [place] % (Auto) 7.6 % 11/20/23 01:18 Eos % (Auto) 2.8 % 11/20/23 01:18 Baso % (Auto) 0.4 % 11/20/23 01:18 Neut # (Auto) 5.35 10^3/uL (1.8-7.7) 11/20/23 01:18 Lymph # (Auto) 2.6 10^3/uL (0.8-4.8) 11/20/23 01:18 [place] # (Auto) 0.7 10^3/uL (0.2-0.9) 11/20/23 01:18 Eos # (Auto) 0.3 10^3/uL (0.0-0.8) 11/20/23 01:18 Baso # (Auto) 0.0 10^3/uL (0.0-0.1) 11/20/23 01:18 Nucleated RBC % (auto) 0 % 11/20/23 01:18 Nucleated RBCs # 0.0 /100WBC 11/20/23 01:18 Sodium 137 mmol/L (136-145) 11/20/23 01:18 Potassium 3.8 mmol/L (3.5-5.1) 11/20/23 01:18 Chloride 103 mmol/L (98-107) 11/20/23 01:18 Carbon Dioxide 22 mmol/L (22-29) 11/20/23 01:18 Anion Gap 15.8 (5-19) 11/20/23 01:18 BUN 16 mg/dL (6-20) 11/20/23 01:18 Creatinine 0.4 mg/dL (0.5-0.9) L 11/20/23 01:18 GFR Calculation 180.6 mL/min (90-130) H 11/20/23 01:18 Glucose 126 mg/dL (65-115) H 11/20/23 01:18 Calculated Osmolality 287 mOsm/kg (285-295) 11/20/23 01:18 Calcium 9.2 mg/dL (8.5-10.5) 11/20/23 01:18 Total Bilirubin 0.2 mg/dL (0.15-1.2) 11/20/23 01:18 AST 11 U/L (0-32) 11/20/23 01:18 ALT 18 U/L (0-33) 11/20/23 01:18 Alkaline Phosphatase 63 U/L (35-105) 11/20/23 01:18 Troponin T Baseline < 6 ng/L (0-10) 11/20/23 01:01 Troponin T 120 Minute 6.00 ng/L (0-10) 11/20/23 03:01 Delta Troponin T 0.56606 ABS# (0-10) 11/20/23 03:01 C-Reactive Protein 8.9 mg/L (0.0-4.9) H 11/20/23 01:18 Total Protein 7.0 g/dL (6.6-8.7) 11/20/23 01:18 Albumin 3.8 g/dL (3.5-5.2) 11/20/23 01:18 Globulin 3.2 g/dL (1.3-4.6) 11/20/23 01:18 All radiology interpretation(s) finalized by discharge Discharge Plan Discharge Patient Disposition: Home Clinical Impression: Atypical chest pain Condition: Stable Prescriptions: No Action nitroglycerin [Nitrostat] 0.4 mg tablet, sublingual 0.4 mg sublingual Q5M PRN (Reason: chest pain) Qty: 25 1RF Rx Instructions: do not exceed 3 doses per episode spironolactone 50 mg tablet See Rx Instructions .ROUTE .COMPLEX Qty: 90 1RF Dose Instruction: TAKE 1 TABLET BY MOUTH EVERY DAY Rx Instructions: TAKE 1 TABLET BY MOUTH EVERY DAY insulin glargine [Lantus Solostar U-100 Insulin] 100 unit/mL (3 mL) insulin pen 50 unit SUBCUT DAILY Qty: 45 0RF Novolog FlexPen U-100 Insulin 100 unit/mL (3 mL) insulin pen See Rx Instructions .ROUTE .COMPLEX Qty: 30 0RF Dose Instruction: INJECT DIRECTED SUBCUTANEOUSLY 3 TIMES DAILY AFTER MEALS BASED ON SLIDING SCALE, MAX 40 UNITS/DAY Rx Instructions: INJECT DIRECTED SUBCUTANEOUSLY 3 TIMES DAILY AFTER MEALS BASED ON SLIDING SCALE, MAX 45 UNITS/DAY atorvastatin 80 mg tablet 80 mg PO DAILY Qty: 90 0RF Jardiance 10 mg tablet See Rx Instructions .ROUTE .COMPLEX Qty: 90 0RF Dose Instruction: TAKE 1 TABLET BY MOUTH EVERY DAY IN THE MORNING Rx Instructions: TAKE 1 TABLET BY MOUTH EVERY DAY IN THE MORNING buspirone 10 mg tablet 10 mg PO BID Qty: 60 2RF (DME) blood-glucose meter [OneTouch Ultra2 Meter] Kit See Rx Instructions .Route Qty: 1 0RF Rx Instructions: check sugar 4-6 times a day (DME) lancets [OneTouch UltraSoft Lancets] Misc See Rx Instructions .Route Qty: 200 1RF Rx Instructions: As directed aspirin 81 mg tablet,delayed release (DR/EC) See Rx Instructions .ROUTE .COMPLEX Qty: 90 1RF Dose Instruction: TAKE 1 TABLET BY MOUTH EVERY DAY Rx Instructions: TAKE 1 TABLET BY MOUTH EVERY DAY (DME) OneTouch Ultra Test Strip See Rx Instructions .ROUTE .COMPLEX Qty: 400 1RF Dose Instruction: CHECK SUGAR 4-6 TIMES DAILY Rx Instructions: CHECK SUGAR 4-6 TIMES DAILY carvedilol 6.25 mg tablet 6.25 mg PO BID Qty: 180 2RF clopidogrel 75 mg tablet See Rx Instructions .ROUTE .COMPLEX Qty: 30 2RF Hold Instructions: Resume on 07/04/23. Dose Instruction: TAKE 1 TABLET BY MOUTH EVERY DAY Rx Instructions: TAKE 1 TABLET BY MOUTH EVERY DAY (DME) pen needle, diabetic [BD Ultra-Fine Short Pen Needle] 31 gauge x 5/16 needle See Rx Instructions .ROUTE .MEDSUPPLY Qty: 200 0RF Rx Instructions: As directed meloxicam 15 mg tablet 15 mg PO DAILY Qty: 30 5RF Hold Instructions: Resume on 07/03/23. Discharge Orders: Discharge ED (Routine); Ordered 11/20/23 Ordered By: Janette DeG uzman Referrals: Kasey Naqvi DO [Primary Care Provider] - 1-3 days Discharge Diet: Usual diet Discharge Activity: Increase activity as tolerated Patient Instructions: Noncardiac Chest Pain (ED) Activity Restrictions/Additional Instructions: Thank you for choosing [facility] for your healthcare needs today. Please realize this is an emergency room and that we are providing you with a medical screening exam and this may not be complete and all inclusive of all the testing and or work up that you may need to determine your ailment or severity of your illness. You have been screened and evaluated and felt safe for discharge. Health conditions do change or evolve sometimes and as such it is important that you follow up with your Primary Doctor to be re checked, 3-5 days is a general good time frame for follow up. You are always welcome to return to the ED for re assessment if your symptoms are worsening or you have new concerns Coding Level of Care Code ED Director Weights And Measures for Marii Alegria
[2023-11-20 01:22] LABS: Basophils % 0.4 %; Eosinophils # 0.3 10^3/uL (0.0-0.8); Eosinophils % 2.8 %; Hematocrit 44.1 % (36-47); Lymphocytes # 2.6 10^3/uL (0.8-4.8); Lymphocytes % 29.3 %; Mean Corpuscular HGB Conc 32.2 g/dL (30-55); Mean Corpuscular Hemoglobin 28.9 pg (27-33); Mean Corpuscular Volume 89.8 fl (85-98); Mean Platelet Volume 9.1 fL (7.4-10.4); Monocytes # 0.7 10^3/uL (0.2-0.9); Monocytes % 7.6 %; Neutrophils # 5.35 10^3/uL (1.8-7.7); Neutrophils % 59.6 %; Nucleated Red Blood Cells % 0 %; Platelet Count 274 10^3/cmm (157-399); Red Blood Count 4.91 10^6/uL (3.85-5.65); Red Cell Distribution Width 12.5 % (12.1-15.1); White Blood Count 8.98 10^3/uL (3.29-11.43)
[2023-11-20 01:26] LABS: Troponin(5th) Baseline < 6 ng/L (0-10)
[2023-11-20 01:39] LABS: Alanine Aminotransferase 18 U/L (0-33); Albumin Level 3.8 g/dL (3.5-5.2); Alkaline Phosphatase 63 U/L (35-105); Anion Gap 15.8 (5-19); Aspartate Amino Transferase 11 U/L (0-32); Blood Urea Nitrogen 16 mg/dL (6-20); C Reactive Protein 8.9 mg/L (0.0-4.9); Calcium 9.2 mg/dL (8.5-10.5); Carbon Dioxide 22 mmol/L (22-29); Chloride 103 mmol/L (98-107); Globulin 3.2 g/dL (1.3-4.6); Glomerular Filtration Rate 180.6 mL/min (90-130); Glucose 126 mg/dL (65-115); Osmolality Calculated 287 mOsm/kg (285-295); Potassium 3.8 mmol/L (3.5-5.1); Sodium 137 mmol/L (136-145); Total Bilirubin 0.2 mg/dL (0.15-1.2)
[2023-11-20 01:47] LABS: Creatinine Clr Calc Pharmacy 243.2068
--- NOTE | 2023-11-20 02:31 | ECG_ITS ---
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 Measurements Intervals [place] Rate: 61 P: 24 [place]: 167 QRS: 8 QRSD: 101 T: 71 QT: 408 QTc: 413 Interpretive Statements SINUS RHYTHM POSSIBLE RIGHT VENTRICULAR CONDUCTION DELAY [RSR (QR) IN V1/V2] POSSIBLE ANTERIOR MYOCARDIAL INFARCTION , OF INDETERMINATE AGE [30 ms Q WAVE IN V3/V4, OR R < 0.2 mV IN V4] Compared to ECG 11/20/2023 00:28:15 No significant changes Electronically Signed On 11-20-2023 18:19:36 CDT by Michael Gillette M.D. [email or web address]
[2023-11-20 03:37] LABS: Troponin 5 2HR Delta 0.00001 ABS# (0-10)
== END 2023-11-20 04:04 | disposition home or self-care (01) ==
PROVIDERS: Emergency Provider Emergency Medicine; PCP Family Medicine
DX: R07.89 Other chest pain (principal); Z79.02 Long term (current) use of antithrombotics/antiplatelets; Z79.82 Long term (current) use of aspirin; Z79.4 Long term (current) use of insulin; I10 Essential (primary) hypertension; I25.10 Atherosclerotic heart disease of native coronary artery without angina pectoris; I25.2 Old myocardial infarction; E11.9 Type 2 diabetes mellitus without complications; Z95.1 Presence of aortocoronary bypass graft
CPT/HCPCS: 36415; 71045; 80053; 84484; 85025; 86140; 93005; 99285

== ENCOUNTER 2023-11-21 22:43 | Emergency (ER) | payer MEDICAID, SELFPAY ==
[2023-11-21 22:49] VITALS: BP 144/86; PULSE 74; RESP 18; TEMP 37.1; O2SAT 99
--- NOTE | 2023-11-21 23:15 | ED_ITS ---
HPI - General Adult General: Chief complaint: General Medical Stated complaint: sore throat, SOB PFSH ED PFSH: Medical History Bed bug bite Hypertension Abnormal cardiovascular stress test Chest pain CAD (coronary artery disease) STEMI (ST elevation myocardial infarction) Family history of premature CAD Nicotine dependence, cigarettes, with unspecified nicotine-induced disorders Osteoarthritis of left knee High cholesterol delivery delivered Diabetes type 2, uncontrolled Hypercholesteremia Family history of early CAD Surgical History Hx of CABG History of delivery x 2 H/O tubal ligation Family History Father Diabetes Heart disease Mother Diabetes COPD (chronic obstructive pulmonary disease) Emphysema lung Heart disease Kidney failure Arthritis Social History Smoking and tobacco/nicotine status: never used tobacco/nicotine Second hand smoke exposure: No Substance/Drug Use: never Adopted: No Caregiver/support person: No Lives independently: Yes Housing: House Marital status: Number of children: 2 Highest education level completed: 9th Grade service: No Course Vital Signs: Vital signs: Vital Signs Temperature 98.8 F 11/21/23 22:49 Pulse Rate 74 11/21/23 22:49 Respiratory Rate 18 11/21/23 22:49 Blood Pressure 144/86 11/21/23 22:49 Pulse Oximetry 99 11/21/23 22:49 Discharge Plan Discharge Condition: Stable Prescriptions: No Action nitroglycerin [Nitrostat] 0.4 mg tablet, sublingual 0.4 mg sublingual Q5M PRN (Reason: chest pain) Qty: 25 1RF Rx Instructions: do not exceed 3 doses per episode spironolactone 50 mg tablet See Rx Instructions .ROUTE .COMPLEX Qty: 90 1RF Dose Instruction: TAKE 1 TABLET BY MOUTH EVERY DAY Rx Instructions: TAKE 1 TABLET BY MOUTH EVERY DAY insulin glargine [Lantus Solostar U-100 Insulin] 100 unit/mL (3 mL) insulin pen 50 unit SUBCUT DAILY Qty: 45 0RF Novolog FlexPen U-100 Insulin 100 unit/mL (3 mL) insulin pen See Rx Instructions .ROUTE .COMPLEX Qty: 30 0RF Dose Instruction: INJECT DIRECTED SUBCUTANEOUSLY 3 TIMES DAILY AFTER MEALS BASED ON SLIDING SCALE, MAX 40 UNITS/DAY Rx Instructions: INJECT DIRECTED SUBCUTANEOUSLY 3 TIMES DAILY AFTER MEALS BASED ON SLIDING SCALE, MAX 45 UNITS/DAY atorvastatin 80 mg tablet 80 mg PO DAILY Qty: 90 0RF Jardiance 10 mg tablet See Rx Instructions .ROUTE .COMPLEX Qty: 90 0RF Dose Instruction: TAKE 1 TABLET BY MOUTH EVERY DAY IN THE MORNING Rx Instructions: TAKE 1 TABLET BY MOUTH EVERY DAY IN THE MORNING buspirone 10 mg tablet 10 mg PO BID Qty: 60 2RF (DME) blood-glucose meter [OneTouch Ultra2 Meter] Kit See Rx Instructions .Route Qty: 1 0RF Rx Instructions: check sugar 4-6 times a day (DME) lancets [OneTouch UltraSoft Lancets] Misc See Rx Instructions .Route Qty: 200 1RF Rx Instructions: As directed aspirin 81 mg tablet,delayed release (DR/EC) See Rx Instructions .ROUTE .COMPLEX Qty: 90 1RF Dose Instruction: TAKE 1 TABLET BY MOUTH EVERY DAY Rx Instructions: TAKE 1 TABLET BY MOUTH EVERY DAY (DME) OneTouch Ultra Test Strip See Rx Instructions .ROUTE .COMPLEX Qty: 400 1RF Dose Instruction: CHECK SUGAR 4-6 TIMES DAILY Rx Instructions: CHECK SUGAR 4-6 TIMES DAILY carvedilol 6.25 mg tablet 6.25 mg PO BID Qty: 180 2RF clopidogrel 75 mg tablet See Rx Instructions .ROUTE .COMPLEX Qty: 30 2RF Hold Instructions: Resume on 07/04/23. Dose Instruction: TAKE 1 TABLET BY MOUTH EVERY DAY Rx Instructions: TAKE 1 TABLET BY MOUTH EVERY DAY (DME) pen needle, diabetic [BD Ultra-Fine Short Pen Needle] 31 gauge x 5/16 needle See Rx Instructions .ROUTE .MEDSUPPLY Qty: 200 0RF Rx Instructions: As directed meloxicam 15 mg tablet 15 mg PO DAILY Qty: 30 5RF Hold Instructions: Resume on 07/03/23. Referrals: Kasey Naqvi DO [Primary Care Provider] - Coding Level of Care Code ED Forestry Faculty Member for Marii Alegria
--- NOTE | 2023-11-21 23:43 | ED_ITS ---
HPI - General Adult 2 General: Chief complaint: General Medical Stated complaint: sore throat, SOB Time Seen by Provider: 11/21/23 23:30 History of Present Illness: 38-year-old female with a history of alc ohol abuse, hypertension, coronary artery disease who presents to the emergency room with indigestion and reflux. She says she feels like she is having heartburn and having reflux upper esophagus. She says she tried to take some medicine but it did not work. No chest pain. No shortness of breath. No abdominal pain. No fevers. No cough. Review of Systems 2 Narrative: Constitutional symptoms: Negative except as documented in HPI. Skin symptoms: Negative except as documented in HPI. Eye symptoms: Negative except as documented in HPI. ENMT symptoms: Negative except as documented in HPI. Respiratory symptoms: Negative except as documented in HPI. Cardiovascular symptoms: Negative except as documented in HPI. Gastrointestinal symptoms: Negative except as documented in HPI. Genitourinary symptoms: Negative except as documented in HPI. Musculoskeletal symptoms: Negative except as documented in HPI. Neurologic symptoms: Negative except as documented in HPI. Psychiatric symptoms: Negative except as documented in HPI. Endocrine symptoms: Negative except as documented in HPI. PFSH ED 2 PFSH: Medical History Bed bug bite Hypertension Abnormal cardiovascular stress test Chest pain CAD (coronary artery disease) STEMI (ST elevation myocardial infarction) Family history of premature CAD Nicotine dependence, cigarettes, with unspecified nicotine-induced disorders Osteoarthritis of left knee High cholesterol delivery delivered Diabetes type 2, uncontrolled Hypercholesteremia Family history of early CAD Surgical History Hx of CABG History of delivery x 2 H/O tubal ligation Family History Father Diabetes Heart disease Mother Diabetes COPD (chronic obstructive pulmonary disease) Emphysema lung Heart disease Kidney failure Arthritis Social History Smoking and tobacco/nicotine status: never used tobacco/nicotine Second hand smoke exposure: No Substance/Drug Use: never Adopted: No Caregiver/support person: No Lives independently: Yes Housing: House Marital status: Number of children: 2 Highest education level completed: 9th Grade service: No Physical Exam 2 Narrative: EXAM NARRATIVE: General: Alert, no acute distress. Skin: Warm, dry. Head: Normocephalic, atraumatic. Neck: Supple, trachea midline. Eye: Extraocular movements are intact. Ears, nose, mouth and throat: mucosa moist. Cardiovascular: Regular, Normal peripheral perfusion. Respiratory: Lungs are clear to auscultation, respirations are non-labored, breath sounds are equal, Symmetrical chest wall expansion. Gastrointestinal: Soft, Nontender, Non distended, Normal bowel sounds. Musculoskeletal: Normal ROM, no deformity. Neurological: Alert and oriented, No focal neurological deficit observed. Psychiatric: Cooperative, appropriate mood & affect. Course 2 Vital Signs: Vital signs: Vital Signs Temperature 98.8 F 11/21/23 22:49 Pulse Rate 74 11/21/23 22:49 Respiratory Rate 18 11/21/23 22:49 Blood Pressure 144/86 11/21/23 22:49 Pulse Oximetry 99 11/21/23 22:49 [facility] - General Adult Medical Decision Making Differential diagnosis for patient with chest pain includes but is not limited to and based on the above HPI, review of systems and physical exam: Pneumonia. unstable angina. angina. Acute coronary syndrome / VT. Pulmonary embolism. Costochondritis / musculoskeletal. Pleurisy. Pericarditis. Esophageal spasm. Pancreatis. Cholecystitis. Workup: Lab work, chest X-ray and EKG ordered to evaluate, rule in and rule out above pathologies. EKG: Time 12:36 AM rate 65. Normal sinus rhythm, No ST-T changes, no ectopy, normal SC & QRS intervals, This was reviewed and interpreted by myself the ER physician at 12:38 AM Lab review: Laboratory results were reviewed and interpreted by myself the emergency room physician. Lab lab work is unremarkable. No elevation in her troponin. BUN/creatinine are normal. LFTs are normal. I reviewed the patient's medical record. Reexamination: Patient remained stable. No increased work of breathing. No altered mental status. Assessment and plan: GERD -GI cocktail, p.o. Pepcid - Discharged home - Discussed plan with patient. Answered any questions. - Evaluation and treatment of this problem were appropriate in the emergency setting. Lab Data 11/22/23 00:01 11/22/23 00:01 Laboratory Results WBC 9.61 10^3/uL (3.29-11.43) 11/22/23 00:01 RBC 4.91 10^6/uL (3.85-5.65) 11/22/23 00:01 Hgb 14.20 g/dL (11.27-16.99) 11/22/23 00:01 Hct 43.4 % (36-47) 11/22/23 00:01 MCV 88.4 fl (85-98) 11/22/23 00:01 MCH 28.9 pg (27-33) 11/22/23 00:01 MCHC 32.7 g/dL (30-55) 11/22/23 00:01 RDW 12.4 % (12.1-15.1) 11/22/23 00:01 Plt Count 317 10^3/cmm (157-399) 11/22/23 00:01 MPV 9.1 fL (7.4-10.4) 11/22/23 00:01 Neut % (Auto) 59.3 % 11/22/23 00:01 Lymph % (Auto) 31.9 % 11/22/23 00:01 [place] % (Auto) 6.3 % 11/22/23 00:01 Eos % (Auto) 1.7 % 11/22/23 00:01 Baso % (Auto) 0.6 % 11/22/23 00:01 Neut # (Auto) 5.69 10^3/uL (1.8-7.7) 11/22/23 00:01 Lymph # (Auto) 3.1 10^3/uL (0.8-4.8) 11/22/23 00:01 [place] # (Auto) 0.6 10^3/uL (0.2-0.9) 11/22/23 00:01 Eos # (Auto) 0.2 10^3/uL (0.0-0.8) 11/22/23 00:01 Baso # (Auto) 0.1 10^3/uL (0.0-0.1) 11/22/23 00:01 Nucleated RBC % (auto) 0 % 11/22/23 00:01 Nucleated RBCs # 0.0 /100WBC 11/22/23 00:01 Sodium 139 mmol/L (136-145) 11/22/23 00:01 Potassium 3.9 mmol/L (3.5-5.1) 11/22/23 00:01 Chloride 104 mmol/L (98-107) 11/22/23 00:01 Carbon Dioxide 22 mmol/L (22-29) 11/22/23 00:01 Anion Gap 16.9 (5-19) 11/22/23 00:01 BUN 19 mg/dL (6-20) 11/22/23 00:01 Creatinine 0.4 mg/dL (0.5-0.9) L 11/22/23 00:01 GFR Calculation 180.6 mL/min (90-130) H 11/22/23 00:01 Glucose 96 mg/dL (65-115) 11/22/23 00:01 Calculated Osmolality 290 mOsm/kg (285-295) 11/22/23 00:01 Calcium 9.3 mg/dL (8.5-10.5) 11/22/23 00:01 Total Bilirubin 0.3 mg/dL (0.15-1.2) 11/22/23 00:01 AST 16 U/L (0-32) 11/22/23 00:01 ALT 21 U/L (0-33) 11/22/23 00:01 Alkaline Phosphatase 67 U/L (35-105) 11/22/23 00:01 Troponin T Baseline < 6 ng/L (0-10) 11/22/23 00:01 Total Protein 7.2 g/dL (6.6-8.7) 11/22/23 00:01 Albumin 4.3 g/dL (3.5-5.2) 11/22/23 00:01 Globulin 2.9 g/dL (1.3-4.6) 11/22/23 00:01 Lipase 22 U/L (13-60) 11/22/23 00:01 No radiology studies performed this visit Discharge Plan Discharge Patient Disposition: Home Clinical Impression: GERD (gastroesophageal reflux disease) Qualifiers: Esophagitis presence: with esophagitis Esophagitis bleeding: without hemorrhage Qualified Code(s): K21.00 - Gastro-esophageal reflux disease with esophagitis, without bleeding Condition: Stable Prescriptions: New Carafate 1 gram tablet 1 g PO TID 28 Days Qty: 84 0RF Rx Instructions: with meals famotidine 40 mg tablet 40 mg PO DAILY Qty: 30 0RF omeprazole 40 mg capsule,delayed release(DR/EC) 40 mg PO DAILY Qty: 30 0RF No Action nitroglycerin [Nitrostat] 0.4 mg tablet, sublingual 0.4 mg sublingual Q5M PRN (Reason: chest pain) Qty: 25 1RF Rx Instructions: do not exceed 3 doses per episode spironolactone 50 mg tablet See Rx Instructions .ROUTE .COMPLEX Qty: 90 1RF Dose Instruction: TAKE 1 TABLET BY MOUTH EVERY DAY Rx Instructions: TAKE 1 TABLET BY MOUTH EVERY DAY insulin glargine [Lantus Solostar U-100 Insulin] 100 unit/mL (3 mL) insulin pen 50 unit SUBCUT DAILY Qty: 45 0RF Novolog FlexPen U-100 Insulin 100 unit/mL (3 mL) insulin pen See Rx Instructions .ROUTE .COMPLEX Qty: 30 0RF Dose Instruction: INJECT DIRECTED SUBCUTANEOUSLY 3 TIMES DAILY AFTER MEALS BASED ON SLIDING SCALE, MAX 40 UNITS/DAY Rx Instructions: INJECT DIRECTED SUBCUTANEOUSLY 3 TIMES DAILY AFTER MEALS BASED ON SLIDING SCALE, MAX 45 UNITS/DAY atorvastatin 80 mg tablet 80 mg PO DAILY Qty: 90 0RF Jardiance 10 mg tablet See Rx Instructions .ROUTE .COMPLEX Qty: 90 0RF Dose Instruction: TAKE 1 TABLET BY MOUTH EVERY DAY IN THE MORNING Rx Instructions: TAKE 1 TABLET BY MOUTH EVERY DAY IN THE MORNING buspirone 10 mg tablet 10 mg PO BID Qty: 60 2RF (DME) blood-glucose meter [OneTouch Ultra2 Meter] Kit See Rx Instructions .Route Qty: 1 0RF Rx Instructions: check sugar 4-6 times a day (DME) lancets [OneTouch UltraSoft Lancets] Misc See Rx Instructions .Route Qty: 200 1RF Rx Instructions: As directed aspirin 81 mg tablet,delayed release (DR/EC) See Rx Instructions .ROUTE .COMPLEX Qty: 90 1RF Dose Instruction: TAKE 1 TABLET BY MOUTH EVERY DAY Rx Instructions: TAKE 1 TABLET BY MOUTH EVERY DAY (DME) OneTouch Ultra Test Strip See Rx Instructions .ROUTE .COMPLEX Qty: 400 1RF Dose Instruction: CHECK SUGAR 4-6 TIMES DAILY Rx Instructions: CHECK SUGAR 4-6 TIMES DAILY carvedilol 6.25 mg tablet 6.25 mg PO BID Qty: 180 2RF clopidogrel 75 mg tablet See Rx Instructions .ROUTE .COMPLEX Qty: 30 2RF Hold Instructions: Resume on 07/04/23. Dose Instruction: TAKE 1 TABLET BY MOUTH EVERY DAY Rx Instructions: TAKE 1 TABLET BY MOUTH EVERY DAY (DME) pen needle, diabetic [BD Ultra-Fine Short Pen Needle] 31 gauge x 5/16 needle See Rx Instructions .ROUTE .MEDSUPPLY Qty: 200 0RF Rx Instructions: As directed meloxicam 15 mg tablet 15 mg PO DAILY Qty: 30 5RF Hold Instructions: Resume on 07/03/23. Discharge Orders: Discharge ED (Routine); Ordered 11/22/23 Ordered By: Janette De Guzman Referrals: Kasey Naqvi DO [Primary Care Provider] - 4-7 days Discharge Diet: Advance as tolerated Discharge Activity: Increase activity as tolerated Patient Instructions: GERD (Gastroesophageal Reflux Disease) (ED) Activity Restrictions/Additional Instructions: Thank you for choosing [facility] for your healthcare needs today. Please realize this is an emergency room and that we are providing you with a medical screening exam and this may not be complete and all inclusive of all the testing and or work up that you may need to determine your ailment or severity of your illness. You have been screened and evaluated and felt safe for discharge. Health conditions do change or evolve sometimes and as such it is important that you follow up with your Primary Doctor to be re checked, 3-5 days is a general good time frame for follow up. You are always welcome to return to the ED for re assessment if your symptoms are worsening or you have new concerns Coding Level of Care Code ED Project Manager/Design Manager for Marii Alegria
--- NOTE | 2023-11-21 23:49 | ECG_ITS ---
[facility] Test Date: 2023-11-22 Pat Name: Oralia Moralez Department: Room: Gender: Female Jack Setter: : 1985 Requested By: Janette Muhammad Order Number: [id number] Maki MD: Kirk Betancourt M.D. Measurements Intervals [place] Rate: 65 P: 14 [place]: 148 QRS: -9 QRSD: 94 T: 65 QT: 393 QTc: 410 Interpretive Statements SINUS RHYTHM LEFT VENTRICULAR HYPERTROPHY AND ST-T CHANGE [VOLTAGE CRITERIA PLUS ST/T ABNORMALITY] POSSIBLE ANTERIOR MYOCARDIAL INFARCTION , OF INDETERMINATE AGE [30 ms Q WAVE IN V3/V4, OR R < 0.2 mV IN V4] Compared to ECG 11/20/2023 02:54:27 Left ventricular hypertrophy now present ST (T wave) deviation now present Myocardial infarct finding still present Electronically Signed On 11-22-2023 8:34:12 CDT by Kirk Betancourt M.D. [id number]
[2023-11-21] MEDS: famotidine 20 mg Tablet 40 MG PO (23:59)
[2023-11-21] MEDS: lidocaine 2% viscous 15 ML, aluminum-mag hydrox-simethicon 30 ML, sucralfate oral liq 1 GM PO (23:59)
[2023-11-21] MEDS: ondansetron 4 MG Tablet PO (23:59)
[2023-11-22 00:14] LABS: Basophils # 0.1 10^3/uL (0.0-0.1); Basophils % 0.6 %; Eosinophils # 0.2 10^3/uL (0.0-0.8); Eosinophils % 1.7 %; Hematocrit 43.4 % (36-47); Lymphocytes # 3.1 10^3/uL (0.8-4.8); Lymphocytes % 31.9 %; Mean Corpuscular HGB Conc 32.7 g/dL (30-55); Mean Corpuscular Hemoglobin 28.9 pg (27-33); Mean Corpuscular Volume 88.4 fl (85-98); Mean Platelet Volume 9.1 fL (7.4-10.4); Monocytes # 0.6 10^3/uL (0.2-0.9); Monocytes % 6.3 %; Neutrophils # 5.69 10^3/uL (1.8-7.7); Neutrophils % 59.3 %; Nucleated Red Blood Cells % 0 %; Platelet Count 317 10^3/cmm (157-399); Red Blood Count 4.91 10^6/uL (3.85-5.65); Red Cell Distribution Width 12.4 % (12.1-15.1); White Blood Count 9.61 10^3/uL (3.29-11.43)
[2023-11-22 00:36] LABS: Alanine Aminotransferase 21 U/L (0-33); Albumin Level 4.3 g/dL (3.5-5.2); Alkaline Phosphatase 67 U/L (35-105); Aspartate Amino Transferase 16 U/L (0-32); Blood Urea Nitrogen 19 mg/dL (6-20); Calcium 9.3 mg/dL (8.5-10.5); Carbon Dioxide 22 mmol/L (22-29); Chloride 104 mmol/L (98-107); Globulin 2.9 g/dL (1.3-4.6); Glomerular Filtration Rate 180.6 mL/min (90-130); Glucose 96 mg/dL (65-115); Lipase 22 U/L (13-60); Osmolality Calculated 290 mOsm/kg (285-295); Sodium 139 mmol/L (136-145); Total Bilirubin 0.3 mg/dL (0.15-1.2); Total Protein 7.2 g/dL (6.6-8.7)
[2023-11-22 00:39] LABS: Anion Gap 16.9 (5-19); Potassium 3.9 mmol/L (3.5-5.1); Troponin(5th) Baseline < 6 ng/L (0-10)
== END 2023-11-22 01:57 | disposition home or self-care (01) ==
PROVIDERS: Emergency Provider Emergency Medicine; PCP Family Medicine
DX: K21.00 Gastro-esophageal reflux disease with esophagitis, without bleeding (principal); Z79.02 Long term (current) use of antithrombotics/antiplatelets; Z79.82 Long term (current) use of aspirin; Z79.4 Long term (current) use of insulin; I25.10 Atherosclerotic heart disease of native coronary artery without angina pectoris; I25.2 Old myocardial infarction; E11.9 Type 2 diabetes mellitus without complications; Z95.1 Presence of aortocoronary bypass graft
CPT/HCPCS: 36415; 80053; 83690; 84484; 85025; 93005; 99284; Q0162

== ENCOUNTER 2023-11-23 17:23 | Emergency (ER) | payer MEDICAID, SELFPAY ==
[2023-11-23 17:29] VITALS: BP 134/83; PULSE 81; RESP 16; TEMP 37.5; O2SAT 98
--- NOTE | 2023-11-23 17:33 | ECG_ITS ---
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 Measurements Intervals [place] Rate: 85 P: 19 [place]: 132 QRS: -4 QRSD: 90 T: 53 QT: 342 QTc: 407 Interpretive Statements SINUS RHYTHM Heavy baseline artifact. Further interpretation is not possible Defective EKG Electronically Signed On 11-24-2023 20:27:19 CDT by Pam Subramanian M.D. [id number]
== END 2023-11-23 19:09 | disposition left against medical advice (07) ==
PROVIDERS: Emergency Provider Family Medicine; PCP Family Medicine
DX: Z53.21 Procedure and treatment not carried out due to patient leaving prior to being seen by health care provider (principal)
CPT/HCPCS: 93005

== ENCOUNTER 2023-11-23 20:30 | Emergency (ER) | payer MEDICAID, SELFPAY ==
[2023-11-23 20:33] VITALS: BP 123/83; PULSE 81; RESP 18; TEMP 36.7; O2SAT 98; BMI 36.0
--- NOTE | 2023-11-23 20:37 | XRR_ITS ---
PROCEDURE INFORMATION: Exam: XR Chest Exam date and time: 11/23/2023 9:06 PM Age: 38 years old Clinical indication: Chest pressure; Prior surgery; Surgery date: 6+ months; Surgery type: Cabg; Patient HX: C/O chest pain; Additional info: Cp TECHNIQUE: Imaging protocol: Radiologic exam of the chest. Views: 1 view. Other technique: BEDSIDE AP CHEST COMPARISON: 1. CR (CHEST, ) 11/20/2023 12:37 AM 2. CR (CHEST, ) 11/17/2023 7:10 PM 3. CR (CHEST, ) 10/15/2023 10:06 PM FINDINGS: Lungs: Clear. No consolidation. Pleural spaces: No definite pleural effusions or pneumothorax. Heart/Mediastinum: Normal. Bones/joints: Mild right mid thoracic curvature or scoliosis is unchanged. Median sternotomy wires and surgical clips over heart again suggest CABG. XR/XR chest 1V portable [id number] IMPRESSION: Clear lungs.
[2023-11-23 21:13] LABS: Basophils # 0.1 10^3/uL (0.0-0.1); Basophils % 0.8 %; Eosinophils # 0.2 10^3/uL (0.0-0.8); Eosinophils % 1.7 %; Hematocrit 42.9 % (36-47); Mean Corpuscular HGB Conc 33.3 g/dL (30-55); Mean Corpuscular Hemoglobin 29.5 pg (27-33); Mean Corpuscular Volume 88.5 fl (85-98); Mean Platelet Volume 8.9 fL (7.4-10.4); Monocytes # 0.6 10^3/uL (0.2-0.9); Monocytes % 5.5 %; Neutrophils % 65.7 %; Nucleated Red Blood Cells % 0 %; Platelet Count 313 10^3/cmm (157-399); Red Blood Count 4.85 10^6/uL (3.85-5.65); Red Cell Distribution Width 12.4 % (12.1-15.1)
--- NOTE | 2023-11-23 21:20 | W.ED.CHESTPA ---
HPI - Chest Pain General: Chief Complaint: Chest Pain Stated Complaint: pain chest, lung and breast/ heart area Time Seen by Provider: 11/23/23 20:41 Source: patient Mode of arrival: ambulatory Limitations: no limitations History of Present Illness: 38-year-old female is well-known to the ER patient states she has been having chest pain today states pain in her chest and back and under her right arm she rates the pain a 4 out of 10 she did receive a stent roughly a week ago she denies any shortness of breath denies nausea vomiting Associated symptoms: Deny abdominal pain, dyspnea, fever(s), nausea or vomiting Review of Systems Const: Denies: fever(s), chills, body aches or change in appetite Eyes: Denies: blurry vision or eye discomfort ENMT: Denies: throat pain or dental pain Card: Reports: chest pain Resp: Denies: dyspnea GI: Denies: abdominal pain, nausea, vomiting or diarrhea Musc: Denies: neck pain or back pain Skin/Breast: Denies: rash Neuro: Denies: headache(s) PFSH ED PFSH: Medical History Bed bug bite Hypertension Abnormal cardiovascular stress test Chest pain CAD (coronary artery disease) STEMI (ST elevation myocardial infarction) Family history of premature CAD Nicotine dependence, cigarettes, with unspecified nicotine-induced disorders Osteoarthritis of left knee High cholesterol delivery delivered Diabetes type 2, uncontrolled Hypercholesteremia Family history of early CAD Surgical History Hx of CABG History of delivery x 2 H/O tubal ligation Family History Father Diabetes Heart disease Mother Diabetes COPD (chronic obstructive pulmonary disease) Emphysema lung Heart disease Kidney failure Arthritis Social History Smoking and tobacco/nicotine status: never used tobacco/nicotine Second hand smoke exposure: No Substance/Drug Use: never Adopted: No Caregiver/support person: No Lives independently: Yes Housing: House Marital status: Number of children: 2 Highest education level completed: 9th Grade service: No Physical Exam Const: COMMON NORMALS: no acute distress, patient oriented x3 and healthy appearing HENMT: COMMON NORMALS: normocephalic and atraumatic HEAD & SCALP: normocephalic and atraumatic Neck/C-Spine: COMMON NORMALS: full ROM and supple Chest: COMMONS NORMALS: normal inspection of the chest and normal palpation of entire chest wall Resp: COMMON NORMALS: normal respiratory effort, No retractions, No use of accessory muscles and clear to auscultation bilaterally AUSCULTATION: clear to auscultation bilaterally Cardio: COMMON NORMALS: regular rate, regular rhythm and No murmurs present (Cardio) RATE: regular rate RHYTHM: regular rhythm GI: COMMON NORMALS: Normal to inspection, nondistended, normoactive bowel sounds present, Soft to palpation, non-tender and no masses PALPATION: Yes Soft to palpation Extremity: COMMON NORMALS: normal to inspection and full ROM Neuro: COMMON NORMALS: patient oriented x3, moves all extremities and no focal motor deficits Psych: COMMON NORMALS: mental status grossly normal, Normal thought process present and cooperative THOUGHT PROCESS: Normal thought process present Skin: COMMON NORMALS: no rashes or lesions noted and no wounds GENERAL SKIN EXAM: no rashes or lesions noted Course Vital Signs: Vital signs: Vital Signs Temperature 98.0 F 11/23/23 20:33 Pulse Rate 78 11/23/23 21:57 Respiratory Rate 16 11/23/23 21:57 Blood Pressure 135/81 11/23/23 21:57 Pulse Oximetry 98 11/23/23 21:57 Oxygen Delivery Me thod Room Air 11/23/23 21:53 MDM - Chest Pain Medical Decision Making Patient presents for chest pain troponin here is negative she is well-appearing here she has no signs of ACS she is stable for discharge follow-up with atomic physics teacher return if worsening. Medical Records I reviewed the patient's medical records. Lab Data I reviewed the patient's lab results. 11/23/23 21:03 11/23/23 21:03 Radiology Impressions Chest X-Ray 11/23/23 20:37 IMPRESSION: Clear lungs. Laboratory Results WBC 11.70 10^3/uL (3.29-11.43) H 11/23/23 21:03 RBC 4.85 10^6/uL (3.85-5.65) 11/23/23 21:03 Hgb 14.30 g/dL (11.27-16.99) 11/23/23 21:03 Hct 42.9 % (36-47) 11/23/23 21:03 MCV 88.5 fl (85-98) 11/23/23 21:03 MCH 29.5 pg (27-33) 11/23/23 21:03 MCHC 33.3 g/dL (30-55) 11/23/23 21:03 RDW 12.4 % (12.1-15.1) 11/23/23 21:03 Plt Count 313 10^3/cmm (157-399) 11/23/23 21:03 MPV 8.9 fL (7.4-10.4) 11/23/23 21:03 Neut % (Auto) 65.7 % 11/23/23 21:03 Lymph % (Auto) 26.0 % 11/23/23 21:03 [place] % (Auto) 5.5 % 11/23/23 21:03 Eos % (Auto) 1.7 % 11/23/23 21:03 Baso % (Auto) 0.8 % 11/23/23 21:03 Neut # (Auto) 7.70 10^3/uL (1.8-7.7) 11/23/23 21:03 Lymph # (Auto) 3.0 10^3/uL (0.8-4.8) 11/23/23 21:03 [place] # (Auto) 0.6 10^3/uL (0.2-0.9) 11/23/23 21:03 Eos # (Auto) 0.2 10^3/uL (0.0-0.8) 11/23/23 21:03 Baso # (Auto) 0.1 10^3/uL (0.0-0.1) 11/23/23 21:03 Nucleated RBC % (auto) 0 % 11/23/23 21:03 Nucleated RBCs # 0.0 /100WBC 11/23/23 21:03 Sodium 138 mmol/L (136-145) 11/23/23 21:03 Potassium 3.8 mmol/L (3.5-5.1) 11/23/23 21:03 Chloride 104 mmol/L (98-107) 11/23/23 21:03 Carbon Dioxide 22 mmol/L (22-29) 11/23/23 21:03 Anion Gap 15.8 (5-19) 11/23/23 21:03 BUN 17 mg/dL (6-20) 11/23/23 21:03 Creatinine 0.3 mg/dL (0.5-0.9) L 11/23/23 21:03 GFR Calculation 251.7 mL/min (90-130) H 11/23/23 21:03 Glucose 114 mg/dL (65-115) 11/23/23 21:03 Calculated Osmolality 288 mOsm/kg (285-295) 11/23/23 21:03 Calcium 9.3 mg/dL (8.5-10.5) 11/23/23 21:03 Total Bilirubin 0.3 mg/dL (0.15-1.2) 11/23/23 21:03 AST 12 U/L (0-32) 11/23/23 21:03 ALT 19 U/L (0-33) 11/23/23 21:03 Alkaline Phosphatase 71 U/L (35-105) 11/23/23 21:03 Troponin T Baseline < 6 ng/L (0-10) 11/23/23 21:03 Total Protein 7.3 g/dL (6.6-8.7) 11/23/23 21:03 Albumin 4.4 g/dL (3.5-5.2) 11/23/23 21:03 Globulin 2.9 g/dL (1.3-4.6) 11/23/23 21:03 Lipase 19 U/L (13-60) 11/23/23 21:03 All radiology interpretation(s) finalized by discharge EKG Data EKG 1: I personally reviewed and interpreted this EKG as follows: EKG interpretation date: 11/23/23 EKG interpretation time: 20:32 Interpretation: nsr hr [address] or t wave abnormalities qrs 89 qtc 397 Discharge Plan Discharge Patient Disposition: Home Clinical Impression: Chest pain Condition: Stable Prescriptions: No Action nitroglycerin [Nitrostat] 0.4 mg tablet, sublingual 0.4 mg sublingual Q5M PRN (Reason: chest pain) Qty: 25 1RF Rx Instructions: do not exceed 3 doses per episode spironolactone 50 mg tablet See Rx Instructions .ROUTE .COMPLEX Qty: 90 1RF Dose Instruction: TAKE 1 TABLET BY MOUTH EVERY DAY Rx Instructions: TAKE 1 TABLET BY MOUTH EVERY DAY insulin glargine [Lantus Solostar U-100 Insulin] 100 unit/mL (3 mL) insulin pen 50 unit SUBCUT DAILY Qty: 45 0RF Novolog FlexPen U-100 Insulin 100 unit/mL (3 mL) insulin pen See Rx Instructions .ROUTE .COMPLEX Qty: 30 0RF Dose Instruction: INJECT DIRECTED SUBCUTANEOUSLY 3 TIMES DAILY AFTER MEALS BASED ON SLIDING SCALE, MAX 40 UNITS/DAY Rx Instructions: INJECT DIRECTED SUBCUTANEOUSLY 3 TIMES DAILY AFTER MEALS BASED ON SLIDING SCALE, MAX 45 UNITS/DAY atorvastatin 80 mg tablet 80 mg PO DAILY Qty: 90 0RF Jardiance 10 mg tablet See Rx Instructions .ROUTE .COMPLEX Qty: 90 0RF Dose Instruction: TAKE 1 TABLET BY MOUTH EVERY DAY IN THE MORNING Rx Instructions: TAKE 1 TABLET BY MOUTH EVERY DAY IN THE MORNING buspirone 10 mg tablet 10 mg PO BID Qty: 60 2RF (DME) blood-glucose meter [OneTouch Ultra2 Meter] Kit See Rx Instructions .Route Qty: 1 0RF Rx Instructions: check sugar 4-6 times a day (DME) lancets [OneTouch UltraSoft Lancets] Misc See Rx Instructions .Route Qty: 200 1RF Rx Instructions: As directed aspirin 81 mg tablet,delayed release (DR/EC) See Rx Instructions .ROUTE .COMPLEX Qty: 90 1RF Dose Instruction: TAKE 1 TABLET BY MOUTH EVERY DAY Rx Instructions: TAKE 1 TABLET BY MOUTH EVERY DAY (DME) OneTouch Ultra Test Strip See Rx Instructions .ROUTE .COMPLEX Qty: 400 1RF Dose Instruction: CHECK SUGAR 4-6 TIMES DAILY Rx Instructions: CHECK SUGAR 4-6 TIMES DAILY carvedilol 6.25 mg tablet 6.25 mg PO BID Qty: 180 2RF clopidogrel 75 mg tablet See Rx Instructions .ROUTE .COMPLEX Qty: 30 2RF Hold Instructions: Resume on 07/04/23. Dose Instruction: TAKE 1 TABLET BY MOUTH EVERY DAY Rx Instructions: TAKE 1 TABLET BY MOUTH EVERY DAY (DME) pen needle, diabetic [BD Ultra-Fine Short Pen Needle] 31 gauge x 5/16 needle See Rx Instructions .ROUTE .MEDSUPPLY Qty: 200 0RF Rx Instructions: As directed (DME) Dexcom G7 Sensor Device See Rx Instructions .Route Qty: 3 1RF Rx Instructions: As directed (DME) Dexcom G7 Boxing Inspector Misc See Rx Instructions .ROUTE Qty: 1 0RF Rx Instructions: As directed meloxicam 15 mg tablet 15 mg PO DAILY Qty: 30 5RF Hold Instructions: Resume on 07/03/23. Carafate 1 gram tablet 1 g PO TID 28 Days Qty: 84 0RF Rx Instructions: with meals famotidine 40 mg tablet 40 mg PO DAILY Qty: 30 0RF omeprazole 40 mg capsule,delayed release(DR/EC) 40 mg PO DAILY Qty: 30 0RF Discharge Orders: Discharge ED (Routine); Ordered 11/23/23 Ordered By: Caro Cheatham Referrals: Kasey Naqvi DO [Primary Care Provider] - 1-3 days Discharge Diet: Advance as tolerated Discharge Activity: Resume usual activity Patient Instructions: Chest Pain (ED) Coding Level of Care Code ED Automotive Quality Engineer for Marii Alegria
[2023-11-23 21:31] LABS: Troponin(5th) Baseline < 6 ng/L (0-10)
[2023-11-23 21:32] LABS: Alanine Aminotransferase 19 U/L (0-33); Albumin Level 4.4 g/dL (3.5-5.2); Alkaline Phosphatase 71 U/L (35-105); Anion Gap 15.8 (5-19); Aspartate Amino Transferase 12 U/L (0-32); Blood Urea Nitrogen 17 mg/dL (6-20); Calcium 9.3 mg/dL (8.5-10.5); Carbon Dioxide 22 mmol/L (22-29); Chloride 104 mmol/L (98-107); Creatinine Clr Calc Pharmacy 322.0477; Globulin 2.9 g/dL (1.3-4.6); Glomerular Filtration Rate 251.7 mL/min (90-130); Glucose 114 mg/dL (65-115); Lipase 19 U/L (13-60); Osmolality Calculated 288 mOsm/kg (285-295); Potassium 3.8 mmol/L (3.5-5.1); Sodium 138 mmol/L (136-145); Total Bilirubin 0.3 mg/dL (0.15-1.2); Total Protein 7.3 g/dL (6.6-8.7)
[2023-11-23 21:53] VITALS: BP 135/81; PULSE 78; RESP 16; O2SAT 98
[2023-11-23 21:57] VITALS: BP 135/81; PULSE 78; RESP 16; O2SAT 98
--- NOTE | 2023-11-23 22:37 | ECG_ITS ---
[facility] Test Date: 2023-11-23 Pat Name: Oralia Moralez Department: Room: Gender: Female Car Supplier: : 1985 Requested By: Caro Cheatham Order Number: [id number] Maki MD: Pam Subramanian M.D. Measurements Intervals [place] Rate: 88 P: 19 OK: 149 QRS: -1 QRSD: 89 T: 63 QT: 351 QTc: 426 Interpretive Statements SINUS RHYTHM NONSPECIFIC T-WAVE ABNORMALITY Compared to ECG 11/23/2023 17:25:54 T-wave abnormality now present ST (T wave) deviation no longer present Electronically Signed On 11-24-2023 20:41:02 CDT by Pam Subramanian M.D. [id number]
== END 2023-11-23 22:06 | disposition home or self-care (01) ==
PROVIDERS: Emergency Provider Emergency Medicine; PCP Family Medicine
DX: R07.9 Chest pain, unspecified (principal); Z79.02 Long term (current) use of antithrombotics/antiplatelets; Z79.82 Long term (current) use of aspirin; Z79.4 Long term (current) use of insulin; I10 Essential (primary) hypertension; I25.10 Atherosclerotic heart disease of native coronary artery without angina pectoris; I25.2 Old myocardial infarction; E11.9 Type 2 diabetes mellitus without complications; Z95.1 Presence of aortocoronary bypass graft
CPT/HCPCS: 36415; 71045; 80053; 83690; 84484; 85025; 93005; 99285

== ENCOUNTER 2023-11-24 18:34 | Emergency (ER) | payer MEDICAID, SELFPAY ==
[2023-11-24 18:40] VITALS: BP 142/81; PULSE 72; RESP 17; TEMP 36.7; O2SAT 98; BMI 36.0
--- NOTE | 2023-11-24 18:46 | ECG_ITS ---
[facility] Test Date: 2023-11-24 Pat Name: Oralia Moralez Department: Room: Gender: Female U.[place]. Commissioner: : 1985 Requested By: Caro Cheatham Order Number: [id number] Maki MD: Pam Subramanian M.D. Measurements Intervals [place] Rate: 79 P: 37 OR: 152 QRS: 25 QRSD: 93 T: 72 QT: 368 QTc: 423 Interpretive Statements SINUS RHYTHM NONSPECIFIC T-WAVE ABNORMALITY Compared to ECG 11/23/2023 20:32:19 No significant changes Electronically Signed On 11-24-2023 20:30:17 CDT by Pam Subramanian M.D. [email or web address] [email or web address] hospitalNew York Designs/store/OM/[id number]
== END 2023-11-24 19:01 | disposition left against medical advice (07) ==
LOC: ER 18:39
PROVIDERS: Emergency Provider Family Medicine; PCP Family Medicine
DX: Z53.21 Procedure and treatment not carried out due to patient leaving prior to being seen by health care provider (principal)
CPT/HCPCS: 93005

== ENCOUNTER 2023-11-26 23:31 | Emergency (ER) | payer MEDICAID, SELFPAY ==
[2023-11-26 23:34] VITALS: BP 139/85; PULSE 73; RESP 20; TEMP 36.5; O2SAT 99; BMI 36.0
[2023-11-26 23:40] VITALS: BP 139/85; PULSE 79; RESP 23; O2SAT 100
--- NOTE | 2023-11-26 23:48 | XRR_ITS ---
PROCEDURE INFORMATION: Exam: XR Chest Exam date and time: 11/27/2023 12:04 AM Age: 38 years old Clinical indication: Angina; Prior surgery; Surgery date: 6+ months; Surgery type: Cabg; Additional info: Chest pain TECHNIQUE: Imaging protocol: Radiologic exam of the chest. Views: 1 view. COMPARISON: CR (CHEST, ) 11/23/2023 9:06 PM FINDINGS: Lungs: Unremarkable. No consolidation. Pleural spaces: Unremarkable. No pleural effusion. No pneumothorax. Heart/Mediastinum: Unremarkable. No cardiomegaly. Bones/joints: Sternotomy wires. XR/XR chest 1V portable [id number] IMPRESSION: Lungs are clear.
--- NOTE | 2023-11-26 23:48 | ECG_ITS ---
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 Measurements Intervals [place] Rate: 78 P: 37 OK: 154 QRS: 57 QRSD: 90 T: 1 QT: 373 QTc: 425 Interpretive Statements SINUS RHYTHM POSSIBLE ANTERIOR MYOCARDIAL INFARCTION , OF INDETERMINATE AGE [30 ms Q WAVE IN V3/V4, OR R < 0.2 mV IN V4] Compared to ECG 11/24/2023 18:46:30 Myocardial infarct finding now present T-wave abnormality no longer present Electronically Signed On 11-27-2023 10:31:21 CDT by Michael Gillette M.D. [id number]
--- NOTE | 2023-11-26 23:56 | ED_ITS ---
HPI - Chest Pain 2 General: Chief Complaint: Chest Pain Stated Complaint: Chest pain,SOB Time Seen by Provider: 11/26/23 23:47 History of Present Illness: Patient presents to the ER with complaints of left-sided intermittent chest pain that radiates up into her neck and down her left arm as well as down her chest wall into her leg. Patient describes as a burning pain. She says been intermittent last couple days and the only thing she is found that makes it worse is lying on her left side. Patient's has not taken any nitro and has not had anything makes it better. Patient states she had a CABG in the past and had a stent placed about a week ago by Dr. Mcconnell. She has appointment coming up on 12 15 with her polysomnographic technician. She tried to move it up they will not move it up. Patient is on Plavix. Review of Systems 2 General: Reports: 10 or more systems reviewed and unremarkable except in HPI and below PFSH ED 2 PFSH: Medical History Bed bug bite Hypertension Abnormal cardiovascular stress test Chest pain CAD (coronary artery disease) STEMI (ST elevation myocardial infarction) Family history of premature CAD Nicotine dependence, cigarettes, with unspecified nicotine-induced disorders Osteoarthritis of left knee High cholesterol delivery delivered Diabetes type 2, uncontrolled Hypercholesteremia Family history of early CAD Surgical History Hx of CABG History of delivery x 2 H/O tubal ligation Family History Father Diabetes Heart disease Mother Diabetes COPD (chronic obstructive pulmonary disease) Emphysema lung Heart disease Kidney failure Arthritis Social History Smoking and tobacco/nicotine status: never used tobacco/nicotine Second hand smoke exposure: No Substance/Drug Use: never Adopted: No Caregiver/support person: No Lives independently: Yes Housing: House Marital status: Number of children: 2 Highest education level completed: 9th Grade service: No Female Reproductive History: Date of last menstrual period: 11/19/23 Physical Exam 2 Const: COMMON NORMALS: no acute distress, average body habitus, patient oriented x3, no limitations, healthy appearing, alert and well nourished HENMT: COMMON NORMALS: normocephalic, atraumatic, hearing grossly normal bilaterally, external ears normal, Normal external nose present and moist oral mucous membranes HEAD & SCALP: normocephalic and atraumatic NOSE: Normal external nose present EXTERNAL EAR: Yes external ears normal Neck/C-Spine: COMMON NORMALS: no JVD Chest: COMMONS NORMALS: normal inspection of the chest; negative for normal palpation of entire chest wall (Palpation of the left-sided chest wall reproduces pain) Resp: COMMON NORMALS: normal respiratory effort, No retractions, No use of accessory muscles and clear to auscultation bilaterally AUSCULTATION: clear to auscultation bilaterally Cardio: COMMON NORMALS: no JVD, regular rate, regular rhythm, S1 normal heart sound present, S2 normal heart sound present, No gallops present (Cardio), No clicks present (Cardio) and No murmurs present (Cardio) RATE: regular rate RHYTHM: regular rhythm HEART SOUNDS: S1 normal heart sound present and S2 normal heart sound present GI: COMMON NORMALS: Normal to inspection, nondistended, normoactive bowel sounds present, Soft to palpation, non-tender, No hepatosplenomegaly present and no masses PALPATION: Yes Soft to palpation and Yes No hepatosplenomegaly present Neuro: COMMON NORMALS: patient oriented x3 SENSORIUM/ORIENTATION: Yes alert Course 2 Vital Signs: Vital signs: Vital Signs Temperature 97.7 F 11/26/23 23:34 Pulse Rate 72 11/27/23 00:25 Respiratory Rate 24 H 11/27/23 00:25 Blood Pressure 133/80 11/27/23 00:25 Pulse Oximetry 96 11/27/23 00:25 Oxygen Delivery Me thod Room Air 11/27/23 00:25 MDM - Chest Pain Medical Decision Making Patient is standard cardiac workup with serial EKGs, lab work, serial troponins, chest x-ray, all of which was essentially benign. Patient be discharged home and is to follow-up with her PCP and polysomnographic technician within the next week. Differential Diagnosis Unlikely acute massive pulmonary embolism, acute respiratory failure, acute myocardial infarction, cardiac arrest or sudden cardiac Medical Records I reviewed the patient's medical records. Lab Data I reviewed the patient's lab results. 11/27/23 00:03 11/27/23 00:03 Radiology Impressions Chest X-Ray 11/26/23 23:48 IMPRESSION: Lungs are clear. Laboratory Results WBC 9.22 10^3/uL (3.29-11.43) 11/27/23 00:03 RBC 4.89 10^6/uL (3.85-5.65) 11/27/23 00:03 Hgb 14.10 g/dL (11.27-16.99) 11/27/23 00:03 Hct 44.3 % (36-47) 11/27/23 00:03 MCV 90.6 fl (85-98) 11/27/23 00:03 MCH 28.8 pg (27-33) 11/27/23 00:03 MCHC 31.8 g/dL (30-55) 11/27/23 00:03 RDW 12.2 % (12.1-15.1) 11/27/23 00:03 Plt Count 329 10^3/cmm (157-399) 11/27/23 00:03 MPV 9.1 fL (7.4-10.4) 11/27/23 00:03 Neut % (Auto) 58.7 % 11/27/23 00:03 Lymph % (Auto) 30.6 % 11/27/23 00:03 [place] % (Auto) 8.4 % 11/27/23 00:03 Eos % (Auto) 1.6 % 11/27/23 00:03 Baso % (Auto) 0.5 % 11/27/23 00:03 Neut # (Auto) 5.41 10^3/uL (1.8-7.7) 11/27/23 00:03 Lymph # (Auto) 2.8 10^3/uL (0.8-4.8) 11/27/23 00:03 [place] # (Auto) 0.8 10^3/uL (0.2-0.9) 11/27/23 00:03 Eos # (Auto) 0.2 10^3/uL (0.0-0.8) 11/27/23 00:03 Baso # (Auto) 0.1 10^3/uL (0.0-0.1) 11/27/23 00:03 Nucleated RBC % (auto) 0 % 11/27/23 00:03 Nucleated RBCs # 0.0 /100WBC 11/27/23 00:03 PT 12.90 SECONDS (12.1-14.9) 11/27/23 00:03 INR 0.95 (0.8-1.2) 11/27/23 00:03 Sodium 137 mmol/L (136-145) 11/27/23 00:03 Potassium 4.0 mmol/L (3.5-5.1) 11/27/23 00:03 Chloride 100 mmol/L (98-107) 11/27/23 00:03 Carbon Dioxide 21 mmol/L (22-29) L 11/27/23 00:03 Anion Gap 20.0 (5-19) H 11/27/23 00:03 BUN 15 mg/dL (6-20) 11/27/23 00:03 Creatinine 0.4 mg/dL (0.5-0.9) L 11/27/23 00:03 GFR Calculation 180.6 mL/min (90-130) H 11/27/23 00:03 Glucose 129 mg/dL (65-115) H 11/27/23 00:03 Calculated Osmolality 287 mOsm/kg (285-295) 11/27/23 00:03 Calcium 9.4 mg/dL (8.5-10.5) 11/27/23 00:03 Total Bilirubin 0.3 mg/dL (0.15-1.2) 11/27/23 00:03 AST 11 U/L (0-32) 11/27/23 00:03 ALT 16 U/L (0-33) 11/27/23 00:03 Alkaline Phosphatase 69 U/L (35-105) 11/27/23 00:03 Troponin T Baseline < 6 ng/L (0-10) 11/27/23 00:03 Troponin T 120 Minute 6.00 ng/L (0-10) 11/27/23 01:54 Delta Troponin T 0.50618 ABS# (0-10) 11/27/23 01:54 Total Protein 6.7 g/dL (6.6-8.7) 11/27/23 00:03 Albumin 4.0 g/dL (3.5-5.2) 11/27/23 00:03 Globulin 2.7 g/dL (1.3-4.6) 11/27/23 00:03 All radiology interpretation(s) finalized by discharge EKG Data EKG 1: I personally reviewed and interpreted this EKG as follows: EKG interpretation date: 11/26/23 EKG interpretation time: 23:39 Interpretation: Ventricular rate 70 bpm, [place] interval 154, QRS duration 90, QTc of 406, sinus rhythm Discharge Plan Discharge Patient Disposition: Home Clinical Impression: Chest pain Condition: Stable Prescriptions: No Action nitroglycerin [Nitrostat] 0.4 mg tablet, sublingual 0.4 mg sublingual Q5M PRN (Reason: chest pain) Qty: 25 1RF Rx Instructions: do not exceed 3 doses per episode spironolactone 50 mg tablet See Rx Instructions .ROUTE .COMPLEX Qty: 90 1RF Dose Instruction: TAKE 1 TABLET BY MOUTH EVERY DAY Rx Instructions: TAKE 1 TABLET BY MOUTH EVERY DAY insulin glargine [Lantus Solostar U-100 Insulin] 100 unit/mL (3 mL) insulin pen 50 unit SUBCUT DAILY Qty: 45 0RF Novolog FlexPen U-100 Insulin 100 unit/mL (3 mL) insulin pen See Rx Instructions .ROUTE .COMPLEX Qty: 30 0RF Dose Instruction: INJECT DIRECTED SUBCUTANEOUSLY 3 TIMES DAILY AFTER MEALS BASED ON SLIDING SCALE, MAX 40 UNITS/DAY Rx Instructions: INJECT DIRECTED SUBCUTANEOUSLY 3 TIMES DAILY AFTER MEALS BASED ON SLIDING SCALE, MAX 45 UNITS/DAY atorvastatin 80 mg tablet 80 mg PO DAILY Qty: 90 0RF Jardiance 10 mg tablet See Rx Instructions .ROUTE .COMPLEX Qty: 90 0RF Dose Instruction: TAKE 1 TABLET BY MOUTH EVERY DAY IN THE MORNING Rx Instructions: TAKE 1 TABLET BY MOUTH EVERY DAY IN THE MORNING buspirone 10 mg tablet 10 mg PO BID Qty: 60 2RF (DME) blood-glucose meter [OneTouch Ultra2 Meter] Kit See Rx Instructions .Route Qty: 1 0RF Rx Instructions: check sugar 4-6 times a day (DME) lancets [OneTouch UltraSoft Lancets] Misc See Rx Instructions .Route Qty: 200 1RF Rx Instructions: As directed aspirin 81 mg tablet,delayed release (DR/EC) See Rx Instructions .ROUTE .COMPLEX Qty: 90 1RF Dose Instruction: TAKE 1 TABLET BY MOUTH EVERY DAY Rx Instructions: TAKE 1 TABLET BY MOUTH EVERY DAY (DME) OneTouch Ultra Test Strip See Rx Instructions .ROUTE .COMPLEX Qty: 400 1RF Dose Instruction: CHECK SUGAR 4-6 TIMES DAILY Rx Instructions: CHECK SUGAR 4-6 TIMES DAILY carvedilol 6.25 mg tablet 6.25 mg PO BID Qty: 180 2RF clopidogrel 75 mg tablet See Rx Instructions .ROUTE .COMPLEX Qty: 30 2RF Hold Instructions: Resume on 07/04/23. Dose Instruction: TAKE 1 TABLET BY MOUTH EVERY DAY Rx Instructions: TAKE 1 TABLET BY MOUTH EVERY DAY (DME) pen needle, diabetic [BD Ultra-Fine Short Pen Needle] 31 gauge x 5/16 needle See Rx Instructions .ROUTE .MEDSUPPLY Qty: 200 0RF Rx Instructions: As directed (DME) Dexcom G7 Sensor Device See Rx Instructions .Route Qty: 3 1RF Rx Instructions: As directed (DME) Dexcom G7 Mdm Developer Misc See Rx Instructions .ROUTE Qty: 1 0RF Rx Instructions: As directed meloxicam 15 mg tablet 15 mg PO DAILY Qty: 30 5RF Hold Instructions: Resume on 07/03/23. Carafate 1 gram tablet 1 g PO TID 28 Days Qty: 84 0RF Rx Instructions: with meals famotidine 40 mg tablet 40 mg PO DAILY Qty: 30 0RF omeprazole 40 mg capsule,delayed release(DR/EC) 40 mg PO DAILY Qty: 30 0RF Discharge Orders: Discharge ED (Routine); Ordered 11/27/23 Ordered By: Leander Rodríguez Referrals: Kasey Naqvi DO [Primary Care Provider] - 1 week Patient Instructions: Chest Pain - Noncardiac Activity Restrictions/Additional Instructions: Your evaluation in ER did not show any cardiac cause for your chest pain. Your chest pain is felt to be noncardiac in nature and probably chest wall pain. Please follow-up with your family physician within next 7 days for further evaluation and treatment. If your pain returns or worsens please feel free to return to the ER. Coding Level of Care Code ED Materials Engineer for Marii Alegria
[2023-11-27 00:16] LABS: Basophils # 0.1 10^3/uL (0.0-0.1); Basophils % 0.5 %; Eosinophils # 0.2 10^3/uL (0.0-0.8); Eosinophils % 1.6 %; Hematocrit 44.3 % (36-47); Lymphocytes # 2.8 10^3/uL (0.8-4.8); Lymphocytes % 30.6 %; Mean Corpuscular HGB Conc 31.8 g/dL (30-55); Mean Corpuscular Hemoglobin 28.8 pg (27-33); Mean Corpuscular Volume 90.6 fl (85-98); Mean Platelet Volume 9.1 fL (7.4-10.4); Monocytes # 0.8 10^3/uL (0.2-0.9); Monocytes % 8.4 %; Neutrophils # 5.41 10^3/uL (1.8-7.7); Neutrophils % 58.7 %; Nucleated Red Blood Cells % 0 %; Platelet Count 329 10^3/cmm (157-399); Red Blood Count 4.89 10^6/uL (3.85-5.65); Red Cell Distribution Width 12.2 % (12.1-15.1); White Blood Count 9.22 10^3/uL (3.29-11.43)
[2023-11-27 00:25] VITALS: BP 133/80; PULSE 72; RESP 24; O2SAT 96
[2023-11-27] MEDS: ketorolac 30 mg/mL INJ IM (00:25)
[2023-11-27 00:27] LABS: INR 0.95 (0.8-1.2)
[2023-11-27 00:30] VITALS: BP 133/80; PULSE 72; RESP 24; O2SAT 95
[2023-11-27 00:30] LABS: Troponin(5th) Baseline < 6 ng/L (0-10)
[2023-11-27 00:33] LABS: Alanine Aminotransferase 16 U/L (0-33); Alkaline Phosphatase 69 U/L (35-105); Aspartate Amino Transferase 11 U/L (0-32); Blood Urea Nitrogen 15 mg/dL (6-20); Calcium 9.4 mg/dL (8.5-10.5); Carbon Dioxide 21 mmol/L (22-29); Chloride 100 mmol/L (98-107); Creatinine Clr Calc Pharmacy 241.5358; Globulin 2.7 g/dL (1.3-4.6); Glomerular Filtration Rate 180.6 mL/min (90-130); Glucose 129 mg/dL (65-115); Osmolality Calculated 287 mOsm/kg (285-295); Sodium 137 mmol/L (136-145); Total Bilirubin 0.3 mg/dL (0.15-1.2); Total Protein 6.7 g/dL (6.6-8.7)
[2023-11-27 01:00] VITALS: BP 121/68; PULSE 73; RESP 22; O2SAT 95
[2023-11-27 01:30] VITALS: BP 136/64; PULSE 82; RESP 14; O2SAT 95
--- NOTE | 2023-11-27 01:48 | ECG_ITS ---
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 Measurements Intervals [place] Rate: 66 P: 25 [place]: 167 QRS: 1 QRSD: 102 T: 60 QT: 406 QTc: 427 Interpretive Statements SINUS RHYTHM MINIMAL VOLTAGE CRITERIA FOR LVH, CONSIDER NORMAL VARIANT [MEETS CRITERIA IN ONE OF: R(aVL), S(V1), R(V5), R(V5/V6)+S(V1)] NONSPECIFIC T-WAVE ABNORMALITY Compared to ECG 11/26/2023 23:39:55 T-wave abnormality now present Myocardial infarct finding no longer present Electronically Signed On 11-27-2023 10:32:35 CDT by Michael Gillette M.D. [id number]
[2023-11-27 02:00] VITALS: BP 139/59; PULSE 53; RESP 21; O2SAT 96
[2023-11-27 02:23] LABS: Troponin 5 2HR Delta 0.00001 ABS# (0-10)
[2023-11-27 02:30] VITALS: BP 109/62; PULSE 57; RESP 18; O2SAT 94
== END 2023-11-27 02:56 | disposition home or self-care (01) ==
PROVIDERS: Emergency Provider Emergency Medicine; PCP Family Medicine
DX: R07.9 Chest pain, unspecified (principal); Z79.02 Long term (current) use of antithrombotics/antiplatelets; Z79.82 Long term (current) use of aspirin; Z79.4 Long term (current) use of insulin; I10 Essential (primary) hypertension; I25.10 Atherosclerotic heart disease of native coronary artery without angina pectoris; I25.2 Old myocardial infarction; E11.9 Type 2 diabetes mellitus without complications; Z95.1 Presence of aortocoronary bypass graft
CPT/HCPCS: 36415; 71045; 80053; 84484; 85025; 85610; 93005; 96372; 99285; J1885

== ENCOUNTER 2023-12-02 23:05 | Emergency (ER) | payer MEDICAID, SELFPAY ==
[2023-12-02 23:15] VITALS: BP 132/82; PULSE 66; RESP 16; TEMP 36.6; O2SAT 99
--- NOTE | 2023-12-02 23:23 | ECG_ITS ---
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 Measurements Intervals [place] Rate: 69 P: 19 OK: 155 QRS: -7 QRSD: 97 T: 42 QT: 390 QTc: 420 Interpretive Statements SINUS RHYTHM POSSIBLE LEFT ATRIAL ENLARGEMENT [-0.1mV P-WAVE IN V1/V2] INCOMPLETE RIGHT BUNDLE BRANCH BLOCK [90+ ms QRS DURATION, TERMINAL R IN V1/V2, 40+ ms S IN I/aVL/V4/V5/V6] POSSIBLE LEFT VENTRICULAR HYPERTROPHY [VOLTAGE CRITERIA PLUS LAE OR QRS WIDENING] POSSIBLE ANTERIOR MYOCARDIAL INFARCTION , OF INDETERMINATE AGE [30 ms Q WAVE IN V3/V4, OR R < 0.2 mV IN V4] Compared to ECG 11/27/2023 01:46:21 Incomplete right bundle-branch block now present Myocardial infarct finding now present T-wave abnormality no longer present Electronically Signed On 12-06-2023 13:21:25 CDT by Kirk Betancourt M.D. [email or web address]/store/[id number] f
[2023-12-02] MEDS: lidocaine 2% viscous 15 ML, aluminum-mag hydrox-simethicon 30 ML, sucralfate oral liq 1 GM PO (23:29)
[2023-12-03 00:02] LABS: Basophils # 0.1 10^3/uL (0.0-0.1); Basophils % 0.5 %; Eosinophils # 0.2 10^3/uL (0.0-0.8); Eosinophils % 1.6 %; Hematocrit 40.6 % (36-47); Lymphocytes # 2.7 10^3/uL (0.8-4.8); Lymphocytes % 26.6 %; Mean Corpuscular HGB Conc 32.5 g/dL (30-55); Mean Corpuscular Volume 89.2 fl (85-98); Mean Platelet Volume 9.1 fL (7.4-10.4); Monocytes # 0.7 10^3/uL (0.2-0.9); Monocytes % 6.7 %; Neutrophils % 64.3 %; Nucleated Red Blood Cells % 0 %; Platelet Count 279 10^3/cmm (157-399); Red Blood Count 4.55 10^6/uL (3.85-5.65); Red Cell Distribution Width 12.4 % (12.1-15.1); White Blood Count 10.26 10^3/uL (3.29-11.43)
--- NOTE | 2023-12-03 00:11 | ED_ITS ---
HPI - Arrhythmia/Palpitations 2 General: Chief Complaint: Arrhythmia/Palpitations Stated Complaint: chest feels as is burning, heart racing Time Seen by Provider: 12/02/23 23:23 History of Present Illness: Patient presents to the ER with complaints of chest pressure and heart racing. Patient states has been doing it all day long off and on. Patient saw her plant taxonomist today and he said something about acid buildup next to her heart and he is going to call into medicine but somehow it never got called into the pharmacy and she is not really for sure what he meant. Patient states the heart racing is worse when she lies down but upon arrival here even lying down her heart rate stays in the 60s and 70s. Review of Systems 2 General: Reports: 10 or more systems reviewed and unremarkable except in HPI and below PFSH ED 2 PFSH: Medical History Bed bug bite Hypertension Abnormal cardiovascular stress test Chest pain CAD (coronary artery disease) STEMI (ST elevation myocardial infarction) Family history of premature CAD Nicotine dependence, cigarettes, with unspecified nicotine-induced disorders Osteoarthritis of left knee High cholesterol delivery delivered Diabetes type 2, uncontrolled Hypercholesteremia Family history of early CAD Surgical History Hx of CABG History of delivery x 2 H/O tubal ligation Family History Father Diabetes Heart disease Mother Diabetes COPD (chronic obstructive pulmonary disease) Emphysema lung Heart disease Kidney failure Arthritis Social History Smoking and tobacco/nicotine status: former use of tobacco/nicotine Second hand smoke exposure: No Substance/Drug Use: never Adopted: No Caregiver/support person: No Lives independently: Yes Housing: House Marital status: Number of children: 2 Highest education level completed: 9th Grade service: No Physical Exam 2 Const: COMMON NORMALS: no acute distress, average body habitus, patient oriented x3, no limitations, healthy appearing, alert and well nourished Neck/C-Spine: COMMON NORMALS: no JVD Chest: COMMONS NORMALS: normal inspection of the chest and normal palpation of entire chest wall Resp: COMMON NORMALS: normal respiratory effort, No retractions, No use of accessory muscles and clear to auscultation bilaterally AUSCULTATION: clear to auscultation bilaterally Cardio: COMMON NORMALS: no JVD, regular rate, regular rhythm, S1 normal heart sound present, S2 normal heart sound present, No gallops present (Cardio), No clicks present (Cardio), No murmurs present (Cardio) and No rub (Cardio) R ATE: regular rate RHYTHM: regular rhythm HEART SOUNDS: S1 normal heart sound present and S2 normal heart sound present GI: COMMON NORMALS: Normal to inspection, nondistended, normoactive bowel sounds present, Soft to palpation, non-tender, No hepatosplenomegaly present and no masses PALPATION: Yes Soft to palpation and Yes No hepatosplenomegaly present Neuro: COMMON NORMALS: patient oriented x3 SENSORIUM/ORIENTATION: Yes alert Course 2 Vital Signs: Vital signs: Vital Signs Temperature 98 F 12/02/23 23:15 Pulse Rate 57 L 12/03/23 02:23 Respiratory Rate 16 12/03/23 02:23 Blood Pressure 127/90 12/03/23 02:23 Pulse Oximetry 99 12/03/23 02:23 MDM - Arrhythmia/Palpitations Medical Decision Making Patient was worked up in a standard chest pain fashion with serial EKGs, serial lab work and continuation of monitoring her heart while she was here. Lab work was benign. Patient had no arrhythmias on the monitor. Patient be discharged home. Medical Records I reviewed the patient's medical records. Lab Data I reviewed the patient's lab results. 12/02/23 23:54 12/02/23 23:54 Laboratory Results WBC 10.26 10^3/uL (3.29-11.43) 12/02/23 23:54 RBC 4.55 10^6/uL (3.85-5.65) 12/02/23 23:54 Hgb 13.20 g/dL (11.27-16.99) 12/02/23 23:54 Hct 40.6 % (36-47) 12/02/23 23:54 MCV 89.2 fl (85-98) 12/02/23 23:54 MCH 29.0 pg (27-33) 12/02/23 23:54 MCHC 32.5 g/dL (30-55) 12/02/23 23:54 RDW 12.4 % (12.1-15.1) 12/02/23 23:54 Plt Count 279 10^3/cmm (157-399) 12/02/23 23:54 MPV 9.1 fL (7.4-10.4) 12/02/23 23:54 Neut % (Auto) 64.3 % 12/02/23 23:54 Lymph % (Auto) 26.6 % 12/02/23 23:54 Adams % (Auto) 6.7 % 12/02/23 23:54 Eos % (Auto) 1.6 % 12/02/23 23:54 Baso % (Auto) 0.5 % 12/02/23 23:54 Neut # (Auto) 6.60 10^3/uL (1.8-7.7) 12/02/23 23:54 Lymph # (Auto) 2.7 10^3/uL (0.8-4.8) 12/02/23 23:54 Adams # (Auto) 0.7 10^3/uL (0.2-0.9) 12/02/23 23:54 Eos # (Auto) 0.2 10^3/uL (0.0-0.8) 12/02/23 23:54 Baso # (Auto) 0.1 10^3/uL (0.0-0.1) 12/02/23 23:54 Nucleated RBC % (auto) 0 % 12/02/23 23:54 Nucleated RBCs # 0.0 /100WBC 12/02/23 23:54 Sodium 136 mmol/L (136-145) 12/02/23 23:54 Potassium 3.5 mmol/L (3.5-5.1) 12/02/23 23:54 Chloride 101 mmol/L (98-107) 12/02/23 23:54 Carbon Dioxide 22 mmol/L (22-29) 12/02/23 23:54 Anion Gap 16.5 (5-19) 12/02/23 23:54 BUN 11 mg/dL (6-20) 12/02/23 23:54 Creatinine 0.4 mg/dL (0.5-0.9) L 12/02/23 23:54 GFR Calculation 180.6 mL/min (90-130) H 12/02/23 23:54 Glucose 126 mg/dL (65-115) H 12/02/23 23:54 Calculated Osmolality 283 mOsm/kg (285-295) L 12/02/23 23:54 Calcium 8.8 mg/dL (8.5-10.5) 12/02/23 23:54 Total Bilirubin 0.2 mg/dL (0.15-1.2) 12/02/23 23:54 AST 11 U/L (0-32) 12/02/23 23:54 ALT 17 U/L (0-33) 12/02/23 23:54 Alkaline Phosphatase 68 U/L (35-105) 12/02/23 23:54 Troponin T Baseline < 6 ng/L (0-10) 12/02/23 23:54 Troponin T 120 Minute 6.00 ng/L (0-10) 12/03/23 02:10 Delta Troponin T 0.41636 ABS# (0-10) 12/03/23 02:10 Total Protein 6.7 g/dL (6.6-8.7) 12/02/23 23:54 Albumin 4.1 g/dL (3.5-5.2) 12/02/23 23:54 Globulin 2.6 g/dL (1.3-4.6) 12/02/23 23:54 No radiology studies performed this visit Discharge Plan Discharge Patient Disposition: Home Clinical Impression: Palpitations Condition: Stable Prescriptions: No Action nitroglycerin [Nitrostat] 0.4 mg tablet, sublingual 0.4 mg sublingual Q5M PRN (Reason: chest pain) Qty: 25 1RF Rx Instructions: do not exceed 3 doses per episode spironolactone 50 mg tablet See Rx Instructions .ROUTE .COMPLEX Qty: 90 1RF Dose Instruction: TAKE 1 TABLET BY MOUTH EVERY DAY Rx Instructions: TAKE 1 TABLET BY MOUTH EVERY DAY insulin glargine [Lantus Solostar U-100 Insulin] 100 unit/mL (3 mL) insulin pen 50 unit SUBCUT DAILY Qty: 45 0RF Novolog FlexPen U-100 Insulin 100 unit/mL (3 mL) insulin pen See Rx Instructions .ROUTE .COMPLEX Qty: 30 0RF Dose Instruction: INJECT DIRECTED SUBCUTANEOUSLY 3 TIMES DAILY AFTER MEALS BASED ON SLIDING SCALE, MAX 40 UNITS/DAY Rx Instructions: INJECT DIRECTED SUBCUTANEOUSLY 3 TIMES DAILY AFTER MEALS BASED ON SLIDING SCALE, MAX 45 UNITS/DAY atorvastatin 80 mg tablet 80 mg PO DAILY Qty: 90 0RF Jardiance 10 mg tablet See Rx Instructions .ROUTE .COMPLEX Qty: 90 0RF Dose Instruction: TAKE 1 TABLET BY MOUTH EVERY DAY IN THE MORNING Rx Instructions: TAKE 1 TABLET BY MOUTH EVERY DAY IN THE MORNING buspirone 10 mg tablet 20 mg PO BID 30 Days Qty: 120 2RF polyethylene glycol 3350 [Miralax] 17 gram/dose powder 4 g PO BID Qty: 510 0RF ranolazine 500 mg tablet extended release 12 hr 500 mg PO BID Qty: 180 3RF (DME) blood-glucose meter [OneTouch Ultra2 Meter] Kit See Rx Instructions .Route Qty: 1 0RF Rx Instructions: check sugar 4-6 times a day (DME) lancets [OneTouch UltraSoft Lancets] Misc See Rx Instructions .Route Qty: 200 1RF Rx Instructions: As directed aspirin 81 mg tablet,delayed release (DR/EC) See Rx Instructions .ROUTE .COMPLEX Qty: 90 1RF Dose Instruction: TAKE 1 TABLET BY MOUTH EVERY DAY Rx Instructions: TAKE 1 TABLET BY MOUTH EVERY DAY (DME) OneTouch Ultra Test Strip See Rx Instructions .ROUTE .COMPLEX Qty: 400 1RF Dose Instruction: CHECK SUGAR 4-6 TIMES DAILY Rx Instructions: CHECK SUGAR 4-6 TIMES DAILY carvedilol 6.25 mg tablet 6.25 mg PO BID Qty: 180 2RF clopidogrel 75 mg tablet See Rx Instructions .ROUTE .COMPLEX Qty: 30 2RF Hold Instructions: Resume on 07/04/23. Dose Instruction: TAKE 1 TABLET BY MOUTH EVERY DAY Rx Instructions: TAKE 1 TABLET BY MOUTH EVERY DAY (DME) pen needle, diabetic [BD Ultra-Fine Short Pen Needle] 31 gauge x 5/16 needle See Rx Instructions .ROUTE .MEDSUPPLY Qty: 200 0RF Rx Instructions: As directed (DME) Dexcom G7 Sensor Device See Rx Instructions .Route Qty: 3 1RF Rx Instructions: As directed (DME) Dexcom G7 Principal Software Engineer Misc See Rx Instructions .Route Qty: 1 0RF Rx Instructions: As directed meloxicam 15 mg tablet 15 mg PO DAILY Qty: 30 5RF Hold Instructions: Resume on 07/03/23. Discharge Orders: Discharge ED (Routine); Ordered 12/03/23 Ordered By: Leander Rodríguez Referrals: Kasey Naqvi DO [Primary Care Provider] - 1 week Patient Instructions: Heart Palpitations Activity Restrictions/Additional Instructions: Your lab work and EKGs and heart monitoring that was performed in ER did not reveal any abnormalities or arrhythmias. Please follow-up with your family practitioner and/or plant taxonomist for further evaluation and treatment. Coding Level of Care Code ED Recreation Establishment Manager for Marii Alegria
[2023-12-03 00:21] LABS: Troponin(5th) Baseline < 6 ng/L (0-10)
[2023-12-03 00:23] LABS: Alanine Aminotransferase 17 U/L (0-33); Albumin Level 4.1 g/dL (3.5-5.2); Alkaline Phosphatase 68 U/L (35-105); Anion Gap 16.5 (5-19); Aspartate Amino Transferase 11 U/L (0-32); Blood Urea Nitrogen 11 mg/dL (6-20); Calcium 8.8 mg/dL (8.5-10.5); Carbon Dioxide 22 mmol/L (22-29); Chloride 101 mmol/L (98-107); Creatinine Clr Calc Pharmacy 244.3204; Globulin 2.6 g/dL (1.3-4.6); Glomerular Filtration Rate 180.6 mL/min (90-130); Glucose 126 mg/dL (65-115); Osmolality Calculated 283 mOsm/kg (285-295); Potassium 3.5 mmol/L (3.5-5.1); Sodium 136 mmol/L (136-145); Total Bilirubin 0.2 mg/dL (0.15-1.2); Total Protein 6.7 g/dL (6.6-8.7)
[2023-12-03 00:48] VITALS: BP 119/70; PULSE 64; RESP 16; O2SAT 94
--- NOTE | 2023-12-03 01:23 | ECG_ITS ---
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 Measurements Intervals [place] Rate: 69 P: 23 OK: 174 QRS: -4 QRSD: 101 T: 45 QT: 398 QTc: 428 Interpretive Statements SINUS RHYTHM POSSIBLE RIGHT VENTRICULAR CONDUCTION DELAY [RSR (QR) IN V1/V2] MINIMAL VOLTAGE CRITERIA FOR LVH, CONSIDER NORMAL VARIANT [MEETS CRITERIA IN ONE OF: R(aVL), S(V1), R(V5), R(V5/V6)+S(V1)] POSSIBLE ANTERIOR MYOCARDIAL INFARCTION , PROBABLY OLD [30 ms Q WAVE IN V3/V4, OR R < 0.2 mV IN V4] Compared to ECG 12/02/2023 23:06:28 Incomplete right bundle-branch block no longer present Myocardial infarct finding still present Electronically Signed On 12-06-2023 13:48:01 CDT by Kirk Betancourt M.D. [id number]
[2023-12-03 02:23] VITALS: BP 127/90; PULSE 57; RESP 16; O2SAT 99
[2023-12-03 02:32] LABS: Troponin 5 2HR Delta 0.00001 ABS# (0-10)
[2023-12-03 02:46] VITALS: BP 127/90; PULSE 57; RESP 16; TEMP 36.6; O2SAT 99
== END 2023-12-03 02:47 | disposition home or self-care (01) ==
PROVIDERS: Emergency Provider Emergency Medicine; PCP Family Medicine
DX: R00.2 Palpitations (principal); Z79.82 Long term (current) use of aspirin; Z79.4 Long term (current) use of insulin; Z79.02 Long term (current) use of antithrombotics/antiplatelets; Z87.891 Personal history of nicotine dependence; I10 Essential (primary) hypertension; I25.2 Old myocardial infarction; E11.9 Type 2 diabetes mellitus without complications; Z95.1 Presence of aortocoronary bypass graft; I25.118 Atherosclerotic heart disease of native coronary artery with other forms of angina pectoris; E78.00 Pure hypercholesterolemia, unspecified
CPT/HCPCS: 36415; 80053; 84484; 85025; 93005; 99214; 99285

== ENCOUNTER 2023-12-04 05:14 | Emergency (ER) | payer MEDICAID, SELFPAY ==
[2023-12-04 05:20] VITALS: BP 120/70; PULSE 80; RESP 16; TEMP 36.4; O2SAT 95; BMI 36.0
--- NOTE | 2023-12-04 05:22 | ED_ITS ---
HPI - General Adult 2 General: Chief complaint: Chest Pain Stated complaint: n/v, sore throat Time Seen by Provider: 12/04/23 05:19 Source: patient Mode of arrival: ambulatory History of Present Illness: 38-year-old female with history of very premature coronary artery disease who previously has undergone bypass surgery additionally has a stent placed earlier this month. Today she is complaining of what she describes as chest discomfort secondary to reflux. She is also having palpations intermittently. She states she gets discomfort that radiates from her chest shooting into her head that lasts just for a few seconds. She has some nausea and vomiting intermittently as well. Her stated complaint is of nausea vomiting and sore throat however when I asked her she minimized the sore throat complaint relating it to reflux mostly. She has not had associated shortness of breath or diaphoresis with this. On 11/14/2023 patient underwent angiogram for an abnormal stress test and had a proximal LAD lesion stented. She presents to the emergency room several times since then with complaints of chest pain. Cardiac workup has been negative she is also been complaining of palpitations. Patient is diabetic she was seen earlier week and cardiology they started her on ranolazine however she has not been able to pick the medication up yet so she has not yet initiated it. Onset (ago): week(s) Location: chest Radiation: neck and other (Head) Relieving factors: none Exacerbating factors: none Associated symptoms: Reports chest pain and palpitations; Deny confusion, cough, diaphoresis, decreased appetite, dyspnea, fevers/chills, headache(s), malaise, nausea, rash, seizures, short of breath, syncope, vomiting or weakness Treatments prior to arrival: none Review of Systems 2 Const: Denies: fever(s), chills, malaise or diaphoresis Card: Reports: chest pain and palpitations; Denies: syncope Resp: Denies: dyspnea GI: Denies: abdominal pain, nausea or vomiting : Denies: dysuria, urinary frequency or urinary urgency Musc: Denies: neck pain or back pain Skin/Breast: Denies: rash Neuro: Denies: headache(s) or confusion PFSH ED 2 PFSH: Medical History Bed bug bite Hypertension Abnormal cardiovascular stress test Chest pain CAD (coronary artery disease) STEMI (ST elevation myocardial infarction) Family history of premature CAD Nicotine dependence, cigarettes, with unspecified nicotine-induced disorders Osteoarthritis of left knee High cholesterol delivery delivered Diabetes type 2, uncontrolled Hypercholesteremia Family history of early CAD Surgical History Hx of CABG History of delivery x 2 H/O tubal ligation Family History Father Diabetes Heart disease Mother Diabetes COPD (chronic obstructive pulmonary disease) Emphysema lung Heart disease Kidney failure Arthritis Social History Smoking and tobacco/nicotine status: former use of tobacco/nicotine Second hand smoke exposure: No Substance/Drug Use: never Adopted: No Caregiver/support person: No Lives independently: Yes Housing: House Marital status: Number of children: 2 Highest education level completed: 9th Grade service: No Physical Exam 2 Const: COMMON NORMALS: no acute distress GENERAL APPEARANCE: cooperative and comfortable ORIENTATION/CONSCIOUSNESS: Yes awake, Yes oriented to person, Yes oriented to place and Yes oriented to time HENMT: COMMON NORMALS: normocephalic, atraumatic and hearing grossly normal bilaterally HEAD & SCALP: normocephalic and atraumatic Resp: COMMON NORMALS: normal respiratory effort, No retractions, No use of accessory muscles and clear to auscultation bilaterally AUSCULTATION: clear to auscultation bilaterally Cardio: COMMON NORMALS: regular rate, regular rhythm and No murmurs present (Cardio) RATE: regular rate RHYTHM: regular rhythm GI: COMMON NORMALS: Soft to palpation and No hepatosplenomegaly present A USCULTATION: Yes normoactive bowel sounds PALPATION: Yes Soft to palpation, No Tenderness to palpation present (GI), No Guarding due to palpation present (GI) and Yes No hepatosplenomegaly present Extremity: COMMON NORMALS: normal to inspection, capillary refill normal, no clubbing, cyanosis or edema, no calf tenderness and no pedal edema Neuro: SENSORIUM/ORIENTATION: Yes oriented to person, Yes oriented to place and Yes oriented to time Skin: COMMON NORMALS: no rashes or lesions noted GENERAL SKIN EXAM: no rashes or lesions noted Course 2 Vital Signs: Vital signs: Vital Signs Temperature 97.6 F 12/04/23 05:20 Pulse Rate 73 12/04/23 11:08 Respiratory Rate 17 12/04/23 11:08 Blood Pressure 121/91 12/04/23 11:08 Pulse Oximetry 97 12/04/23 11:08 Oxygen Delivery Me thod Room Air 12/04/23 06:05 MDM - General Adult Medical Decision Making Second cardiac sign enzyme is negative. Called and discussed with Dr. Dior who is on cardiology call he had seen the patient earlier in had prescribed the ranolazine but due to the financial and insurance issues were not able to get it yet. He recommends that we instead prescribe her Imdur which could be titrated up if effective she may be able to use this instead of the ranolazine. And like to have her follow-up in the cardiology clinic they can make further adjustments. She has not had any further symptoms at this time. She has no EKG changes and cardiac enzymes are negative. In addition to this we will start her on a proton pump inhibitor some of her symptoms are suggestive of reflux which was what she was concerned that that were. Will put her on Protonix 40 twice a day for 10 days then once daily. Return if she has further problems or change in symptoms continue all of her other medications. Medical Records I reviewed the patient's medical records. Lab Data I reviewed the patient's lab results. 12/04/23 05:50 12/04/23 05:50 Radiology Impressions Chest X-Ray 12/04/23 05:51 IMPRESSION: No acute cardiopulmonary findings. Laboratory Results WBC 9.07 10^3/uL (3.29-11.43) 12/04/23 05:50 RBC 4.59 10^6/uL (3.85-5.65) 12/04/23 05:50 Hgb 13.20 g/dL (11.27-16.99) 12/04/23 05:50 Hct 40.7 % (36-47) 12/04/23 05:50 MCV 88.7 fl (85-98) 12/04/23 05:50 MCH 28.8 pg (27-33) 12/04/23 05:50 MCHC 32.4 g/dL (30-55) 12/04/23 05:50 RDW 12.4 % (12.1-15.1) 12/04/23 05:50 Plt Count 283 10^3/cmm (157-399) 12/04/23 05:50 MPV 9.0 fL (7.4-10.4) 12/04/23 05:50 Neut % (Auto) 67.4 % 12/04/23 05:50 Lymph % (Auto) 22.5 % 12/04/23 05:50 Ocean % (Auto) 7.5 % 12/04/23 05:50 Eos % (Auto) 1.4 % 12/04/23 05:50 Baso % (Auto) 0.6 % 12/04/23 05:50 Neut # (Auto) 6.12 10^3/uL (1.8-7.7) 12/04/23 05:50 Lymph # (Auto) 2.0 10^3/uL (0.8-4.8) 12/04/23 05:50 Ocean # (Auto) 0.7 10^3/uL (0.2-0.9) 12/04/23 05:50 Eos # (Auto) 0.1 10^3/uL (0.0-0.8) 12/04/23 05:50 Baso # (Auto) 0.1 10^3/uL (0.0-0.1) 12/04/23 05:50 Nucleated RBC % (auto) 0 % 12/04/23 05:50 Nucleated RBCs # 0.0 /100WBC 12/04/23 05:50 Sodium 137 mmol/L (136-145) 12/04/23 05:50 Potassium 4.0 mmol/L (3.5-5.1) 12/04/23 05:50 Chloride 103 mmol/L (98-107) 12/04/23 05:50 Carbon Dioxide 21 mmol/L (22-29) L 12/04/23 05:50 Anion Gap 17.0 (5-19) 12/04/23 05:50 BUN 13 mg/dL (6-20) 12/04/23 05:50 Creatinine 0.3 mg/dL (0.5-0.9) L 12/04/23 05:50 GFR Calculation 251.7 mL/min (90-130) H 12/04/23 05:50 Glucose 184 mg/dL (65-115) H 12/04/23 05:50 Calculated Osmolality 289 mOsm/kg (285-295) 12/04/23 05:50 Lactic Acid 1.5 mmol/L (0.5-2.2) 12/04/23 05:50 Calcium 8.7 mg/dL (8.5-10.5) 12/04/23 05:50 Total Bilirubin 0.2 mg/dL (0.15-1.2) 12/04/23 05:50 AST 9 U/L (0-32) 12/04/23 05:50 ALT 16 U/L (0-33) 12/04/23 05:50 Alkaline Phosphatase 66 U/L (35-105) 12/04/23 05:50 Troponin T Baseline < 6 ng/L (0-10) 12/04/23 05:50 Troponin T 120 Minute 6.00 ng/L (0-10) 12/04/23 08:50 Delta Troponin T 0.76776 ABS# (0-10) 12/04/23 08:50 NT-Pro-B Natriuret Pep 81 pg/mL (0-125) 12/04/23 05:50 Total Protein 6.3 g/dL (6.6-8.7) L 12/04/23 05:50 Albumin 3.9 g/dL (3.5-5.2) 12/04/23 05:50 Globulin 2.4 g/dL (1.3-4.6) 12/04/23 05:50 Group A Strep Rapid Negative (Negative) 12/04/23 05:47 All radiology interpretation(s) finalized by discharge Discharge Plan Discharge Patient Disposition: Home Clinical Impression: Atypical chest pain Condition: Stable Prescriptions: New isosorbide mononitrate 30 mg tablet extended release 24 hr 30 mg PO DAILY Qty: 30 0RF pantoprazole 40 mg tablet,delayed release (DR/EC) 40 mg PO DAILY Qty: 40 0RF Rx Instructions: 1 tablet twice a day for 10 days then once daily No Action nitroglycerin [Nitrostat] 0.4 mg tablet, sublingual 0.4 mg sublingual Q5M PRN (Reason: chest pain) Qty: 25 1RF Rx Instructions: do not exceed 3 doses per episode insulin glargine [Lantus Solostar U-100 Insulin] 100 unit/mL (3 mL) insulin pen 50 unit SUBCUT DAILY Qty: 45 0RF Novolog FlexPen U-100 Insulin 100 unit/mL (3 mL) insulin pen See Rx Instructions .ROUTE .COMPLEX Qty: 30 0RF Dose Instruction: INJECT DIRECTED SUBCUTANEOUSLY 3 TIMES DAILY AFTER MEALS BASED ON SLIDING SCALE, MAX 40 UNITS/DAY Rx Instructions: INJECT DIRECTED SUBCUTANEOUSLY 3 TIMES DAILY AFTER MEALS BASED ON SLIDING SCALE, MAX 45 UNITS/DAY atorvastatin 80 mg tablet 80 mg PO DAILY Qty: 90 0RF buspirone 10 mg tablet 20 mg PO BID 30 Days Qty: 120 2RF ranolazine 500 mg tablet extended release 12 hr 500 mg PO BID Qty: 180 3RF (DME) blood-glucose meter [OneTouch Ultra2 Meter] Kit See Rx Instructions .Route Qty: 1 0RF Rx Instructions: check sugar 4-6 times a day (DME) lancets [OneTouch UltraSoft Lancets] Misc See Rx Instructions .Route Qty: 200 1RF Rx Instructions: As directed (DME) OneTouch Ultra Test Strip See Rx Instructions .ROUTE .COMPLEX Qty: 400 1RF Dose Instruction: CHECK SUGAR 4-6 TIMES DAILY Rx Instructions: CHECK SUGAR 4-6 TIMES DAILY carvedilol 6.25 mg tablet 6.25 mg PO BID Qty: 180 2RF (DME) pen needle, diabetic [BD Ultra-Fine Short Pen Needle] 31 gauge x 5/16 needle See Rx Instructions .ROUTE .MEDSUPPLY Qty: 200 0RF Rx Instructions: As directed (DME) Dexcom G7 Sensor Device See Rx Instructions .Route Qty: 3 1RF Rx Instructions: As directed (DME) Dexcom G7 Md Pediatric Allergist Misc See Rx Instructions .Route Qty: 1 0RF Rx Instructions: As directed meloxicam 15 mg tablet 15 mg PO DAILY Qty: 30 5RF Hold Instructions: Resume on 07/03/23. clopidogrel 75 mg tablet 75 mg PO DAILY aspirin 81 mg tablet,delayed release (DR/EC) 81 mg PO DAILY Miralax 17 gram/dose powder 4 g PO BID PRN (Reason: Constipation) spironolactone 50 mg tablet 50 mg PO DAILY Jardiance 10 mg tablet 10 mg PO QAM Discharge Orders: Discharge ED (Routine); Ordered 12/04/23 Ordered By: Peña De La Garza Referrals: Kasey Naqvi DO [Primary Care Provider] - Discharge Diet: Usual diet Discharge Activity: Limit activity as instructed Patient Instructions: Opioid Safety, Pain Management Activity Restrictions/Additional Instructions: Thank you for choosing [facility] for your healthcare needs today. It is very important that you follow up as instructed or that you return to the Emergency Department should you have concerns or if your condition changes or worsens in any way. You were seen today after a complaint of chest discomfort. Recommend you start pantoprazole 40 mg twice a day for 10 days then once daily. I discussed your case with Dr. Dior who you had seen recently and he had started the ranolazine. This is the medication you have had difficult time getting it filled. He recommends starting isosorbide mononitrate 30 mg once daily and following up with cardiology if the isosorbide is doing well he states he may titrate that medication up rather than having you start the ranolazine. If the Imdur is not improving symptoms they will consider stopping it and having you starting the ranolazine. In either event you should follow-up with cardiology within the week. Coding Level of Care Code ED Research Associate Quality Control Qc for Marii Alegria
--- NOTE | 2023-12-04 05:26 | ECG_ITS ---
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 Measurements Intervals [place] Rate: 74 P: 21 WI: 160 QRS: 2 QRSD: 86 T: 45 QT: 382 QTc: 425 Interpretive Statements SINUS RHYTHM POSSIBLE ANTERIOR MYOCARDIAL INFARCTION , OF INDETERMINATE AGE [30 ms Q WAVE IN V3/V4, OR R < 0.2 mV IN V4] Compared to ECG 12/03/2023 01:20:27 No significant changes Electronically Signed On 12-06-2023 13:26:46 CDT by Kirk Betancourt M.D. [id number]
[2023-12-04 05:43] VITALS: BP 120/70; PULSE 88; RESP 16; O2SAT 97
--- NOTE | 2023-12-04 05:51 | XRR_ITS ---
PROCEDURE INFORMATION: Exam: XR Chest Exam date and time: 12/04/2023 5:57 AM Age: 38 years old Clinical indication: Cough and dyspnea; Prior surgery; Surgery date: 6+ months; Surgery type: Cabg; Additional info: Dyspnea/cough TECHNIQUE: Imaging protocol: Radiologic exam of the chest. Views: 1 view. COMPARISON: CR (CHEST, ) 11/27/2023 12:04 AM FINDINGS: Lungs: No focal consolidation. Pleural spaces: No large pleural effusion. No distinct pneumothorax. Heart/Mediastinum: Cardiomediastinal silhouette is midline and stable in size. Bones/joints: Postsurgical changes of prior median sternotomy. XR/XR chest 1V portable [id number] IMPRESSION: No acute cardiopulmonary findings.
[2023-12-04 05:54] LABS: Rapid Strep A Test Negative (Negative)
[2023-12-04 05:57] LABS: Basophils # 0.1 10^3/uL (0.0-0.1); Basophils % 0.6 %; Eosinophils # 0.1 10^3/uL (0.0-0.8); Eosinophils % 1.4 %; Hematocrit 40.7 % (36-47); Lymphocytes % 22.5 %; Mean Corpuscular HGB Conc 32.4 g/dL (30-55); Mean Corpuscular Hemoglobin 28.8 pg (27-33); Mean Corpuscular Volume 88.7 fl (85-98); Monocytes # 0.7 10^3/uL (0.2-0.9); Monocytes % 7.5 %; Neutrophils # 6.12 10^3/uL (1.8-7.7); Neutrophils % 67.4 %; Nucleated Red Blood Cells % 0 %; Platelet Count 283 10^3/cmm (157-399); Red Blood Count 4.59 10^6/uL (3.85-5.65); Red Cell Distribution Width 12.4 % (12.1-15.1); White Blood Count 9.07 10^3/uL (3.29-11.43)
[2023-12-04] MEDS: lidocaine 2% viscous 15 ML, aluminum-mag hydrox-simethicon 30 ML, sucralfate oral liq 1 GM PO (06:03)
[2023-12-04 06:05] VITALS: BP 109/66; PULSE 80; RESP 16; O2SAT 98
[2023-12-04 06:15] LABS: Troponin(5th) Baseline < 6 ng/L (0-10)
[2023-12-04 06:16] LABS: Lactic Sepsis W/Reflex 1.5 mmol/L (0.5-2.2)
[2023-12-04 06:25] LABS: Alanine Aminotransferase 16 U/L (0-33); Albumin Level 3.9 g/dL (3.5-5.2); Alkaline Phosphatase 66 U/L (35-105); Aspartate Amino Transferase 9 U/L (0-32); Blood Urea Nitrogen 13 mg/dL (6-20); Calcium 8.7 mg/dL (8.5-10.5); Carbon Dioxide 21 mmol/L (22-29); Chloride 103 mmol/L (98-107); Globulin 2.4 g/dL (1.3-4.6); Glomerular Filtration Rate 251.7 mL/min (90-130); Glucose 184 mg/dL (65-115); NT Pro B Type Natriuretic Pept 81 pg/mL (0-125); Osmolality Calculated 289 mOsm/kg (285-295); Sodium 137 mmol/L (136-145); Total Bilirubin 0.2 mg/dL (0.15-1.2); Total Protein 6.3 g/dL (6.6-8.7)
[2023-12-04 06:28] LABS: Creatinine Clr Calc Pharmacy 322.0477
--- NOTE | 2023-12-04 07:30 | ECG_ITS ---
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 Measurements Intervals [place] Rate: 69 P: 29 WV: 171 QRS: 7 QRSD: 97 T: 50 QT: 396 QTc: 427 Interpretive Statements SINUS RHYTHM Compared to ECG 12/04/2023 05:26:51 Myocardial infarct finding no longer present Electronically Signed On 12-06-2023 13:55:08 CDT by Kirk Betancourt M.D. [id number]
[2023-12-04 09:14] LABS: Troponin 5 2HR Delta 0.00001 ABS# (0-10)
[2023-12-04 09:15] VITALS: BP 121/91; PULSE 73; RESP 17; O2SAT 97
[2023-12-04 11:08] VITALS: BP 121/91; PULSE 73; RESP 17; O2SAT 97
== END 2023-12-04 11:08 | disposition home or self-care (01) ==
PROVIDERS: Emergency Provider Family Medicine; PCP Family Medicine
DX: R07.89 Other chest pain (principal); Z79.02 Long term (current) use of antithrombotics/antiplatelets; Z79.82 Long term (current) use of aspirin; Z79.4 Long term (current) use of insulin; Z87.891 Personal history of nicotine dependence; I10 Essential (primary) hypertension; I25.10 Atherosclerotic heart disease of native coronary artery without angina pectoris; I25.2 Old myocardial infarction; E11.9 Type 2 diabetes mellitus without complications; Z95.1 Presence of aortocoronary bypass graft
CPT/HCPCS: 36415; 71045; 80053; 83605; 83880; 84484; 85025; 87081; 87880; 93005; 99285

== ENCOUNTER 2023-12-09 00:31 | Emergency (ER) | payer MEDICAID, SELFPAY ==
[2023-12-09 00:38] VITALS: BP 120/74; PULSE 77; RESP 17; TEMP 36.6; O2SAT 100; BMI 36.8
[2023-12-09 00:57] LABS: Glucose Point of Care 103 mg/dL (70-110)
== END 2023-12-09 01:16 | disposition left against medical advice (07) ==
PROVIDERS: Emergency Provider Family Medicine; PCP Family Medicine
DX: Z53.21 Procedure and treatment not carried out due to patient leaving prior to being seen by health care provider (principal)
CPT/HCPCS: 36416; 82962

== ENCOUNTER 2023-12-14 17:59 | Emergency (ER) | payer MEDICAID, SELFPAY ==
--- NOTE | 2023-12-14 18:01 | ECG_ITS ---
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 Measurements Intervals [place] Rate: 76 P: 26 HI: 157 QRS: -1 QRSD: 96 T: 45 QT: 378 QTc: 425 Interpretive Statements SINUS RHYTHM POSSIBLE LEFT ATRIAL ENLARGEMENT [-0.1mV P-WAVE IN V1/V2] POSSIBLE RIGHT VENTRICULAR CONDUCTION DELAY [RSR (QR) IN V1/V2] POSSIBLE LEFT VENTRICULAR HYPERTROPHY [VOLTAGE CRITERIA PLUS LAE OR QRS WIDENING] POSSIBLE ANTERIOR MYOCARDIAL INFARCTION , OF INDETERMINATE AGE [30 ms Q WAVE IN V3/V4, OR R < 0.2 mV IN V4] Compared to ECG 12/04/2023 07:30:49 Myocardial infarct finding now present Electronically Signed On 12-14-2023 19:13:39 CDT by Pam Subramanian M.D. [id number]
[2023-12-14 18:03] VITALS: RESP 16
--- NOTE | 2023-12-14 18:10 | XRR_ITS ---
PROCEDURE INFORMATION: Exam: XR Chest Exam date and time: 12/14/2023 6:19 PM Age: 38 years old Clinical indication: Chest wall pain; Prior surgery; Surgery date: 6+ months; Surgery type: Open heart 1 yr ago; Additional info: Cp TECHNIQUE: Imaging protocol: Radiologic exam of the chest. Views: 1 view. COMPARISON: CR (CHEST, ) 12/04/2023 5:57 AM FINDINGS: Lungs: The lungs are clear. No pulmonary consolidation. Pleural spaces: No pleural effusion or pneumothorax. Heart/Mediastinum: Heart size is within normal limits. There is no pericardial effusion or pericardial thickening. Bones/joints: The patient is status post sternotomy. No acute osseous abnormalities are seen. XR/XR chest 1V portable [id number] IMPRESSION: No acute cardiopulmonary disease.
--- NOTE | 2023-12-14 18:39 | W.ED.CHESTPA ---
HPI - Chest Pain General: Chief Complaint: Chest Pain Stated Complaint: CP,left arm pain,Upper back pain Time Seen by Provider: 12/14/23 18:18 Source: patient Mode of arrival: ambulatory Limitations: no limitations History of Present Illness: 38-year-old female is well-known to the ER states she been having chest pain today for the last hour. States sharp pain across her chest she denies any worsening proving factors rates her pain a 5 out of 10 currently she denies any fevers or cough. Associated symptoms: Deny abdominal pain, dyspnea, fever(s), nausea or vomiting Review of Systems Const: Denies: fever(s), chills, body aches or change in appetite ENMT: Denies: throat pain or dental pain Card: Reports: chest pain Resp: Denies: dyspnea GI: Denies: abdominal pain, nausea, vomiting or diarrhea : Denies: dysuria Musc: Denies: neck pain or back pain Skin/Breast: Denies: rash Neuro: Denies: headache(s) PFSH ED PFSH: Medical History Bed bug bite Hypertension Abnormal cardiovascular stress test Chest pain CAD (coronary artery disease) STEMI (ST elevation myocardial infarction) Family history of premature CAD Nicotine dependence, cigarettes, with unspecified nicotine-induced disorders Osteoarthritis of left knee High cholesterol delivery delivered Diabetes type 2, uncontrolled Hypercholesteremia Family history of early CAD Surgical History Hx of CABG History of delivery x 2 H/O tubal ligation Family History Father Diabetes Heart disease Mother Diabetes COPD (chronic obstructive pulmonary disease) Emphysema lung Heart disease Kidney failure Arthritis Social History Smoking and tobacco/nicotine status: former use of tobacco/nicotine Second hand smoke exposure: No Substance/Drug Use: never Adopted: No Caregiver/support person: No Lives independently: Yes Housing: House Marital status: Number of children: 2 Highest education level completed: 9th Grade service: No Physical Exam Const: COMMON NORMALS: no acute distress, patient oriented x3 and healthy appearing HENMT: COMMON NORMALS: normocephalic and atraumatic HEAD & SCALP: normocephalic and atraumatic Eye: COMMON NORMALS: Equal, round and reactive pupils present and EOMs intact bilaterally PUPIL: Yes Equal, round and reactive pupils present Neck/C-Spine: COMMON NORMALS: full ROM and supple Chest: COMMONS NORMALS: normal inspection of the chest and normal palpation of entire chest wall Resp: COMMON NORMALS: normal respiratory effort, No retractions, No use of accessory muscles and clear to auscultation bilaterally AUSCULTATION: clear to auscultation bilaterally Cardio: COMMON NORMALS: regular rate, regular rhythm and No murmurs present (Cardio) RATE: regular rate RHYTHM: regular rhythm Extremity: COMMON NORMALS: normal to inspection and full ROM Neuro: COMMON NORMALS: patient oriented x3, moves all extremities and no focal motor deficits Psych: COMMON NORMALS: mental status grossly normal, Normal thought process present and cooperative THOUGHT PROCESS: Normal thought process present Skin: COMMON NORMALS: no rashes or lesions noted and no wounds GENERAL SKIN EXAM: no rashes or lesions noted Course Vital Signs: Vital signs: Vital Signs Respiratory Rate 16 12/14/23 18:03 Oxygen Delivery Me thod Room Air 12/14/23 18:03 MDM - Chest Pain Medical Decision Making Patient presents here with chest pain initial troponin here is negative patient does not want stay for 2-hour troponin wants to go home her troponin is negative here will discharge at this time she is to 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 Lab Data I reviewed the patient's lab results. 12/14/23 18:37 12/14/23 18:37 Laboratory Results WBC 8.64 10^3/uL (3.29-11.43) 12/14/23 18:37 RBC 4.91 10^6/uL (3.85-5.65) 12/14/23 18:37 Hgb 14.20 g/dL (11.27-16.99) 12/14/23 18:37 Hct 43.7 % (36-47) 12/14/23 18:37 MCV 89.0 fl (85-98) 12/14/23 18:37 MCH 28.9 pg (27-33) 12/14/23 18:37 MCHC 32.5 g/dL (30-55) 12/14/23 18:37 RDW 12.6 % (12.1-15.1) 12/14/23 18:37 Plt Count 319 10^3/cmm (157-399) 12/14/23 18:37 MPV 9.0 fL (7.4-10.4) 12/14/23 18:37 Neut % (Auto) 63.7 % 12/14/23 18:37 Lymph % (Auto) 27.5 % 12/14/23 18:37 [place] % (Auto) 6.1 % 12/14/23 18:37 Eos % (Auto) 1.7 % 12/14/23 18:37 Baso % (Auto) 0.7 % 12/14/23 18:37 Neut # (Auto) 5.49 10^3/uL (1.8-7.7) 12/14/23 18:37 Lymph # (Auto) 2.4 10^3/uL (0.8-4.8) 12/14/23 18:37 [place] # (Auto) 0.5 10^3/uL (0.2-0.9) 12/14/23 18:37 Eos # (Auto) 0.2 10^3/uL (0.0-0.8) 12/14/23 18:37 Baso # (Auto) 0.1 10^3/uL (0.0-0.1) 12/14/23 18:37 Nucleated RBC % (auto) 0 % 12/14/23 18:37 Nucleated RBCs # 0.0 /100WBC 12/14/23 18:37 Sodium 139 mmol/L (136-145) 12/14/23 18:37 Potassium 4.0 mmol/L (3.5-5.1) 12/14/23 18:37 Chloride 103 mmol/L (98-107) 12/14/23 18:37 Carbon Dioxide 24 mmol/L (22-29) 12/14/23 18:37 Anion Gap 16.0 (5-19) 12/14/23 18:37 BUN 11 mg/dL (6-20) 12/14/23 18:37 Creatinine 0.4 mg/dL (0.5-0.9) L 12/14/23 18:37 GFR Calculation 180.6 mL/min (90-130) H 12/14/23 18:37 Glucose 117 mg/dL (65-115) H 12/14/23 18:37 Calculated Osmolality 288 mOsm/kg (285-295) 12/14/23 18:37 Calcium 9.4 mg/dL (8.5-10.5) 12/14/23 18:37 Total Bilirubin 0.3 mg/dL (0.15-1.2) 12/14/23 18:37 AST 12 U/L (0-32) 12/14/23 18:37 ALT 17 U/L (0-33) 12/14/23 18:37 Alkaline Phosphatase 73 U/L (35-105) 12/14/23 18:37 Troponin T Baseline < 6 ng/L (0-10) 12/14/23 18:37 Total Protein 7.3 g/dL (6.6-8.7) 12/14/23 18:37 Albumin 4.6 g/dL (3.5-5.2) 12/14/23 18:37 Globulin 2.7 g/dL (1.3-4.6) 12/14/23 18:37 All radiology interpretation(s) finalized by discharge EKG Data EKG 1: I personally reviewed and interpreted this EKG as follows: EKG interpretation date: 12/14/23 EKG interpretation time: 18:01 Interpretation: nsr hr [address] elevation qrs 96 qtc 408 Discharge Plan Discharge Patient Disposition: Home Clinical Impression: Chest pain Condition: Stable Prescriptions: No Action nitroglycerin [Nitrostat] 0.4 mg tablet, sublingual 0.4 mg sublingual Q5M PRN (Reason: chest pain) Qty: 25 1RF Rx Instructions: do not exceed 3 doses per episode insulin glargine [Lantus Solostar U-100 Insulin] 100 unit/mL (3 mL) insulin pen 50 unit SUBCUT DAILY Qty: 45 0RF Novolog FlexPen U-100 Insulin 100 unit/mL (3 mL) insulin pen See Rx Instructions .ROUTE .COMPLEX Qty: 30 0RF Dose Instruction: INJECT DIRECTED SUBCUTANEOUSLY 3 TIMES DAILY AFTER MEALS BASED ON SLIDING SCALE, MAX 40 UNITS/DAY Rx Instructions: INJECT DIRECTED SUBCUTANEOUSLY 3 TIMES DAILY AFTER MEALS BASED ON SLIDING SCALE, MAX 45 UNITS/DAY atorvastatin 80 mg tablet 80 mg PO DAILY Qty: 90 0RF buspirone 10 mg tablet 20 mg PO BID 30 Days Qty: 120 2RF ranolazine 500 mg tablet extended release 12 hr 500 mg PO BID Qty: 180 3RF (DME) lancets [OneTouch UltraSoft Lancets] Misc See Rx Instructions .Route Qty: 200 1RF Rx Instructions: As directed carvedilol 6.25 mg tablet 6.25 mg PO BID Qty: 180 2RF (DME) pen needle, diabetic [BD Ultra-Fine Short Pen Needle] 31 gauge x 5/16 needle See Rx Instructions .ROUTE .MEDSUPPLY Qty: 200 0RF Rx Instructions: As directed (DME) Dexcom G7 Sensor Device See Rx Instructions .Route Qty: 3 1RF Rx Instructions: As directed (DME) Dexcom G7 Fiber Optic Assembler Misc See Rx Instructions .Route Qty: 1 0RF Rx Instructions: As directed (DME) OneTouch Ultra Test Strip See Rx Instructions .ROUTE .COMPLEX Qty: 400 1RF Dose Instruction: CHECK SUGAR 4-6 TIMES DAILY Rx Instructions: CHECK SUGAR 4-6 TIMES DAILY (DME) blood-glucose meter Kit See Rx Instructions .Route Qty: 1 0RF Rx Instructions: check sugar 4-6 times a day meloxicam 15 mg tablet 15 mg PO DAILY Qty: 30 5RF Hold Instructions: Resume on 07/03/23. isosorbide mononitrate 30 mg tablet extended release 24 hr 30 mg PO DAILY Qty: 30 0RF pantoprazole 40 mg tablet,delayed release (DR/EC) 40 mg PO DAILY Qty: 40 0RF Rx Instructions: 1 tablet twice a day for 10 days then once daily clopidogrel 75 mg tablet 75 mg PO DAILY aspirin 81 mg tablet,delayed release (DR/EC) 81 mg PO DAILY Miralax 17 gram/dose powder 4 g PO BID PRN (Reason: Constipation) spironolactone 50 mg tablet 50 mg PO DAILY Jardiance 10 mg tablet 10 mg PO QAM Discharge Orders: Discharge ED (Routine); Ordered 12/14/23 Ordered By: Caro Cheatham Referrals: Kasey Naqvi DO [Primary Care Provider] - 4-7 days Discharge Diet: Advance as tolerated Discharge Activity: Resume usual activity Patient Instructions: Chest Pain (ED) Coding Level of Care Code ED Dairy Specialist for Marii Alegria
[2023-12-14 18:46] LABS: Basophils # 0.1 10^3/uL (0.0-0.1); Basophils % 0.7 %; Eosinophils # 0.2 10^3/uL (0.0-0.8); Eosinophils % 1.7 %; Hematocrit 43.7 % (36-47); Lymphocytes # 2.4 10^3/uL (0.8-4.8); Lymphocytes % 27.5 %; Mean Corpuscular HGB Conc 32.5 g/dL (30-55); Mean Corpuscular Hemoglobin 28.9 pg (27-33); Monocytes # 0.5 10^3/uL (0.2-0.9); Monocytes % 6.1 %; Neutrophils # 5.49 10^3/uL (1.8-7.7); Neutrophils % 63.7 %; Nucleated Red Blood Cells % 0 %; Platelet Count 319 10^3/cmm (157-399); Red Blood Count 4.91 10^6/uL (3.85-5.65); Red Cell Distribution Width 12.6 % (12.1-15.1); White Blood Count 8.64 10^3/uL (3.29-11.43)
[2023-12-14 19:05] LABS: Troponin(5th) Baseline < 6 ng/L (0-10)
[2023-12-14 19:29] LABS: Alanine Aminotransferase 17 U/L (0-33); Albumin Level 4.6 g/dL (3.5-5.2); Alkaline Phosphatase 73 U/L (35-105); Aspartate Amino Transferase 12 U/L (0-32); Blood Urea Nitrogen 11 mg/dL (6-20); Calcium 9.4 mg/dL (8.5-10.5); Carbon Dioxide 24 mmol/L (22-29); Chloride 103 mmol/L (98-107); Creatinine Clr Calc Pharmacy 244.8778; Globulin 2.7 g/dL (1.3-4.6); Glomerular Filtration Rate 180.6 mL/min (90-130); Glucose 117 mg/dL (65-115); Osmolality Calculated 288 mOsm/kg (285-295); Sodium 139 mmol/L (136-145); Total Bilirubin 0.3 mg/dL (0.15-1.2); Total Protein 7.3 g/dL (6.6-8.7)
[2023-12-14 19:39] VITALS: BP 144/83; PULSE 84; RESP 16; O2SAT 97
== END 2023-12-14 19:41 | disposition home or self-care (01) ==
PROVIDERS: Emergency Provider Emergency Medicine; PCP Family Medicine
DX: R07.9 Chest pain, unspecified (principal); Z79.02 Long term (current) use of antithrombotics/antiplatelets; Z79.82 Long term (current) use of aspirin; Z79.4 Long term (current) use of insulin; Z87.891 Personal history of nicotine dependence; I25.10 Atherosclerotic heart disease of native coronary artery without angina pectoris; I10 Essential (primary) hypertension; I25.2 Old myocardial infarction; E11.9 Type 2 diabetes mellitus without complications; Z95.1 Presence of aortocoronary bypass graft
CPT/HCPCS: 71045; 80053; 84484; 85025; 93005; 99285

== ENCOUNTER → 2023-12-16 12:39 | Outpatient (BNVA) | payer MEDICAID, SELFPAY | PROVIDERS: PCP Family Medicine; Visit Provider Nurse Practitioner Family | DX: Z09 Encounter for follow-up examination after completed treatment for conditions other than malignant neoplasm (principal); R07.9 Chest pain, unspecified | CPT/HCPCS: 99213 ==

== ENCOUNTER 2023-12-20 21:48 | Emergency (ER) | payer MEDICAID, SELFPAY ==
--- NOTE | 2023-12-20 21:49 | ECG_ITS ---
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 Measurements Intervals [place] Rate: 78 P: 14 GA: 153 QRS: -7 QRSD: 94 T: 28 QT: 391 QTc: 447 Interpretive Statements SINUS RHYTHM MINIMAL VOLTAGE CRITERIA FOR LVH, CONSIDER NORMAL VARIANT [MEETS CRITERIA IN ONE OF: R(aVL), S(V1), R(V5), R(V5/V6)+S(V1)] POSSIBLE ANTERIOR MYOCARDIAL INFARCTION , OF INDETERMINATE AGE [30 ms Q WAVE IN V3/V4, OR R < 0.2 mV IN V4] INTERPRETATION BASED ON A DEFAULT AGE OF 40 YEARS Compared to ECG 12/14/2023 18:01:24 No significant changes Electronically Signed On 12-22-2023 19:25:15 CDT by Michael Gillette M.D. [id number] maggie
[2023-12-20 21:52] VITALS: BP 140/85; PULSE 80; RESP 15; TEMP 36.6; O2SAT 99; BMI 36.9
[2023-12-20 22:05] VITALS: BP 131/91; PULSE 87; RESP 16; O2SAT 97
--- NOTE | 2023-12-20 22:37 | ED_ITS ---
HPI - Chest Pain 2 General: Chief Complaint: Chest Pain Stated Complaint: chest pain dwn L arm numb on center of chest Time Seen by Provider: 12/20/23 21:53 History of Present Illness: Patient presents to the ER with substernal chest pain and numbness feeling in the center of her chest. That started last night and has been on all day long. Is been constant. Patient denies any shortness of breath nausea vomiting diaphoresis, patient is well-known to the ER and she does have an extensive cardiac history. Review of Systems 2 General: Reports: 10 or more systems reviewed and unremarkable except in HPI and below PFSH ED 2 PFSH: Medical History Bed bug bite Hypertension Abnormal cardiovascular stress test Chest pain CAD (coronary artery disease) STEMI (ST elevation myocardial infarction) Family history of premature CAD Nicotine dependence, cigarettes, with unspecified nicotine-induced disorders Osteoarthritis of left knee High cholesterol delivery delivered Diabetes type 2, uncontrolled Hypercholesteremia Family history of early CAD Surgical History Hx of CABG History of delivery x 2 H/O tubal ligation Family History Father Diabetes Heart disease Mother Diabetes COPD (chronic obstructive pulmonary disease) Emphysema lung Heart disease Kidney failure Arthritis Social History Smoking and tobacco/nicotine status: current every day tobacco/nicotine user Quit status (tobacco/nicotine): has quit using Year quit tobacco: 10/16/2022 Former quit date comment: 1.5ppd X 27 years Second hand smoke exposure: No Substance/Drug Use: never Adopted: No Caregiver/support person: No Lives independently: Yes Housing: House Marital status: Number of children: 2 Highest education level completed: 9th Grade service: No Physical Exam 2 Const: COMMON NORMALS: no acute distress, average body habitus, patient oriented x3, no limitations, healthy appearing, alert and well nourished HENMT: COMMON NORMALS: normocephalic, atraumatic, hearing grossly normal bilaterally, external ears normal, Normal external nose present and moist oral mucous membranes HEAD & SCALP: normocephalic and atraumatic NOSE: Normal external nose present EXTERNAL EAR: Yes external ears normal Neck/C-Spine: COMMON NORMALS: no JVD Chest: COMMONS NORMALS: normal inspection of the chest and normal palpation of entire chest wall Resp: COMMON NORMALS: normal respiratory effort, No retractions, No use of accessory muscles and clear to auscultation bilaterally AUSCULTATION: clear to auscultation bilaterally Cardio: COMMON NORMALS: no JVD, regular rate, regular rhythm, S1 normal heart sound present, S2 normal heart sound present, No gallops present (Cardio), No clicks present (Cardio), No murmurs present (Cardio) and No rub (Cardio) R ATE: regular rate RHYTHM: regular rhythm HEART SOUNDS: S1 normal heart sound present and S2 normal heart sound present GI: COMMON NORMALS: Normal to inspection, nondistended, normoactive bowel sounds present, Soft to palpation, non-tender, No hepatosplenomegaly present and no masses PALPATION: Yes Soft to palpation and Yes No hepatosplenomegaly present Neuro: COMMON NORMALS: patient oriented x3 SENSORIUM/ORIENTATION: Yes alert Course 2 Vital Signs: Vital signs: Vital Signs Temperature 97.9 F 12/20/23 21:52 Pulse Rate 77 12/20/23 22:38 Respiratory Rate 18 12/20/23 22:38 Blood Pressure 131/91 12/20/23 22:38 Pulse Oximetry 96 12/20/23 22:38 Oxygen Delivery Me thod Room Air 12/20/23 22:38 MDM - Chest Pain Medical Decision Making Presents to the ER with chest pain and was worked up in a standard chest pain fashion. Before the second EKG and second troponin could be obtained patient decided she wanted to leave. Patient's initial EKG is unchanged and her troponin is less than 6. These results was discussed with the patient and how things may change by time to get her second troponin and second EKG the patient was still persistent on wanting to leave. Patient be discharged and is instructed to return immediately for chest pain returns or worsens. Differential Diagnosis Unlikely acute massive pulmonary embolism, acute respiratory failure, acute myocardial infarction, cardiac arrest or sudden cardiac Medical Records I reviewed the patient's medical records. Lab Data I reviewed the patient's lab results. 12/20/23 22:39 12/20/23 22:39 Laboratory Results WBC 10.32 10^3/uL (3.29-11.43) 12/20/23 22:39 RBC 4.83 10^6/uL (3.85-5.65) 12/20/23 22:39 Hgb 13.80 g/dL (11.27-16.99) 12/20/23 22:39 Hct 41.9 % (36-47) 12/20/23 22:39 MCV 86.7 fl (85-98) 12/20/23 22:39 MCH 28.6 pg (27-33) 12/20/23 22:39 MCHC 32.9 g/dL (30-55) 12/20/23 22:39 RDW 12.6 % (12.1-15.1) 12/20/23 22:39 Plt Count 336 10^3/cmm (157-399) 12/20/23 22:39 MPV 9.3 fL (7.4-10.4) 12/20/23 22:39 Neut % (Auto) 64.1 % 12/20/23 22:39 Lymph % (Auto) 27.1 % 12/20/23 22:39 [place] % (Auto) 6.6 % 12/20/23 22:39 Eos % (Auto) 1.4 % 12/20/23 22:39 Baso % (Auto) 0.6 % 12/20/23 22:39 Neut # (Auto) 6.62 10^3/uL (1.8-7.7) 12/20/23 22:39 Lymph # (Auto) 2.8 10^3/uL (0.8-4.8) 12/20/23 22:39 [place] # (Auto) 0.7 10^3/uL (0.2-0.9) 12/20/23 22:39 Eos # (Auto) 0.1 10^3/uL (0.0-0.8) 12/20/23 22:39 Baso # (Auto) 0.1 10^3/uL (0.0-0.1) 12/20/23 22:39 Nucleated RBC % (auto) 0 % 12/20/23 22:39 Nucleated RBCs # 0.0 /100WBC 12/20/23 22:39 Sodium 137 mmol/L (136-145) 12/20/23 22:39 Potassium 4.0 mmol/L (3.5-5.1) 12/20/23 22:39 Chloride 100 mmol/L (98-107) 12/20/23 22:39 Carbon Dioxide 23 mmol/L (22-29) 12/20/23 22:39 Anion Gap 18.0 (5-19) 12/20/23 22:39 BUN 12 mg/dL (6-20) 12/20/23 22:39 Creatinine 0.5 mg/dL (0.5-0.9) 12/20/23 22:39 GFR Calculation 139.6 mL/min (90-130) H 12/20/23 22:39 Glucose 194 mg/dL (65-115) H 12/20/23 22:39 Calculated Osmolality 289 mOsm/kg (285-295) 12/20/23 22:39 Calcium 9.3 mg/dL (8.5-10.5) 12/20/23 22:39 Total Bilirubin 0.5 mg/dL (0.15-1.2) 12/20/23 22:39 AST 13 U/L (0-32) 12/20/23 22:39 ALT 18 U/L (0-33) 12/20/23 22:39 Alkaline Phosphatase 72 U/L (35-105) 12/20/23 22:39 Troponin T Baseline < 6 ng/L (0-10) 12/20/23 22:39 Total Protein 7.4 g/dL (6.6-8.7) 12/20/23 22:39 Albumin 4.3 g/dL (3.5-5.2) 12/20/23 22:39 Globulin 3.1 g/dL (1.3-4.6) 12/20/23 22:39 No radiology studies performed this visit Discharge Plan Discharge Patient Disposition: Home Clinical Impression: Chest pain Qualifiers: Chest pain type: unspecified Qualified Code(s): R07.9 - Chest pain, unspecified Condition: Stable Prescriptions: No Action nitroglycerin [Nitrostat] 0.4 mg tablet, sublingual 0.4 mg sublingual Q5M PRN (Reason: chest pain) Qty: 25 1RF Rx Instructions: do not exceed 3 doses per episode insulin glargine [Lantus Solostar U-100 Insulin] 100 unit/mL (3 mL) insulin pen 50 unit SUBCUT DAILY Qty: 45 0RF Novolog FlexPen U-100 Insulin 100 unit/mL (3 mL) insulin pen See Rx Instructions .ROUTE .COMPLEX Qty: 30 0RF Dose Instruction: INJECT DIRECTED SUBCUTANEOUSLY 3 TIMES DAILY AFTER MEALS BASED ON SLIDING SCALE, MAX 40 UNITS/DAY Rx Instructions: INJECT DIRECTED SUBCUTANEOUSLY 3 TIMES DAILY AFTER MEALS BASED ON SLIDING SCALE, MAX 45 UNITS/DAY atorvastatin 80 mg tablet 80 mg PO DAILY Qty: 90 0RF famotidine 20 mg tablet 20 mg PO DAILY buspirone 10 mg tablet 20 mg PO BID 30 Days Qty: 120 2RF (DME) lancets [OneTouch UltraSoft Lancets] Misc See Rx Instructions .Route Qty: 200 1RF Rx Instructions: As directed carvedilol 6.25 mg tablet 6.25 mg PO BID Qty: 180 2RF (DME) pen needle, diabetic [BD Ultra-Fine Short Pen Needle] 31 gauge x 5/16 needle See Rx Instructions .ROUTE .MEDSUPPLY Qty: 200 0RF Rx Instructions: As directed (DME) Dexcom G7 Sensor Device See Rx Instructions .Route Qty: 3 1RF Rx Instructions: As directed (DME) Dexcom G7 Harbor Boat Pilot Misc See Rx Instructions .Route Qty: 1 0RF Rx Instructions: As directed (DME) OneTouch Ultra Test Strip See Rx Instructions .ROUTE .COMPLEX Qty: 400 1RF Dose Instruction: CHECK SUGAR 4-6 TIMES DAILY Rx Instructions: CHECK SUGAR 4-6 TIMES DAILY (DME) blood-glucose meter Kit See Rx Instructions .Route Qty: 1 0RF Rx Instructions: check sugar 4-6 times a day ranolazine 500 mg tablet extended release 12 hr 500 mg PO BID Qty: 180 3RF meloxicam 15 mg tablet 15 mg PO DAILY Qty: 30 5RF Hold Instructions: Resume on 07/03/23. isosorbide mononitrate 30 mg tablet extended release 24 hr 30 mg PO DAILY Qty: 30 0RF pantoprazole 40 mg tablet,delayed release (DR/EC) 40 mg PO DAILY Qty: 40 0RF Rx Instructions: 1 tablet twice a day for 10 days then once daily clopidogrel 75 mg tablet 75 mg PO DAILY aspirin 81 mg tablet,delayed release (DR/EC) 81 mg PO DAILY Miralax 17 gram/dose powder 4 g PO BID PRN (Reason: Constipation) spironolactone 50 mg tablet 50 mg PO DAILY Jardiance 10 mg tablet 10 mg PO QAM Discharge Orders: Discharge ED (Routine); Ordered 12/20/23 Ordered By: Leander Rodríguez Referrals: Kasey Naqvi DO [Primary Care Provider] - 1 week Patient Instructions: Chest Pain (ED) Activity Restrictions/Additional Instructions: Your initial EKG and first set of cardiac enzymes were unchanged and normal. This means it is less likely to be cardiac in nature however your second set was not obtained. If your chest pain worsens please feel free to come to the to the ER immediately as things may have changed. Coding Level of Care Code ED Validation Consultant for Marii Alegria
[2023-12-20 22:38] VITALS: BP 131/91; PULSE 77; RESP 18; O2SAT 96
[2023-12-20 22:45] LABS: Basophils # 0.1 10^3/uL (0.0-0.1); Basophils % 0.6 %; Eosinophils # 0.1 10^3/uL (0.0-0.8); Eosinophils % 1.4 %; Hematocrit 41.9 % (36-47); Lymphocytes # 2.8 10^3/uL (0.8-4.8); Lymphocytes % 27.1 %; Mean Corpuscular HGB Conc 32.9 g/dL (30-55); Mean Corpuscular Hemoglobin 28.6 pg (27-33); Mean Corpuscular Volume 86.7 fl (85-98); Mean Platelet Volume 9.3 fL (7.4-10.4); Monocytes # 0.7 10^3/uL (0.2-0.9); Monocytes % 6.6 %; Neutrophils # 6.62 10^3/uL (1.8-7.7); Neutrophils % 64.1 %; Nucleated Red Blood Cells % 0 %; Platelet Count 336 10^3/cmm (157-399); Red Blood Count 4.83 10^6/uL (3.85-5.65); Red Cell Distribution Width 12.6 % (12.1-15.1); White Blood Count 10.32 10^3/uL (3.29-11.43)
[2023-12-20 23:02] LABS: Troponin(5th) Baseline < 6 ng/L (0-10)
[2023-12-20 23:06] LABS: Alanine Aminotransferase 18 U/L (0-33); Albumin Level 4.3 g/dL (3.5-5.2); Alkaline Phosphatase 72 U/L (35-105); Aspartate Amino Transferase 13 U/L (0-32); Blood Urea Nitrogen 12 mg/dL (6-20); Calcium 9.3 mg/dL (8.5-10.5); Carbon Dioxide 23 mmol/L (22-29); Chloride 100 mmol/L (98-107); Creatinine Clr Calc Pharmacy 195.9023; Globulin 3.1 g/dL (1.3-4.6); Glomerular Filtration Rate 139.6 mL/min (90-130); Glucose 194 mg/dL (65-115); Osmolality Calculated 289 mOsm/kg (285-295); Sodium 137 mmol/L (136-145); Total Bilirubin 0.5 mg/dL (0.15-1.2); Total Protein 7.4 g/dL (6.6-8.7)
[2023-12-20 23:55] VITALS: BP 131/91; PULSE 88; RESP 19; O2SAT 99
[2023-12-20 23:58] VITALS: BP 131/91; PULSE 88; TEMP 36.6; O2SAT 99
== END 2023-12-20 23:59 | disposition home or self-care (01) ==
PROVIDERS: Emergency Provider Emergency Medicine; PCP Family Medicine
DX: R07.9 Chest pain, unspecified (principal); I25.10 Atherosclerotic heart disease of native coronary artery without angina pectoris; I25.2 Old myocardial infarction; I10 Essential (primary) hypertension; E78.00 Pure hypercholesterolemia, unspecified; F17.210 Nicotine dependence, cigarettes, uncomplicated; Z79.899 Other long term (current) drug therapy; Z79.4 Long term (current) use of insulin; Z79.85 Long-term (current) use of injectable non-insulin antidiabetic drugs; Z79.82 Long term (current) use of aspirin; Z95.1 Presence of aortocoronary bypass graft; Z82.49 Family history of ischemic heart disease and other diseases of the circulatory system
CPT/HCPCS: 80053; 84484; 85025; 93005; 99284

== ENCOUNTER 2023-12-25 16:11 | Emergency (ER) | payer MEDICAID, SELFPAY ==
[2023-12-25 16:15] VITALS: BP 121/80; PULSE 82; TEMP 37; O2SAT 98; BMI 36.8
--- NOTE | 2023-12-25 16:17 | ECG_ITS ---
[facility] Test Date: 2023-12-25 Pat Name: Oralia Moralez Department: Room: Gender: Female Client Support Associate: : 1985 Requested By: Andreas Valero Order Number: [id number] Gambino MD: Michael Gillette M.D. Measurements Intervals [place] Rate: 72 P: 27 MA: 170 QRS: 1 QRSD: 92 T: 45 QT: 387 QTc: 425 Interpretive Statements SINUS RHYTHM Compared to ECG 12/20/2023 21:49:39 Myocardial infarct finding no longer present Electronically Signed On 12-25-2023 17:10:43 CDT by Michael Gillette M.D. [email or web address]/[id number] f
--- NOTE | 2023-12-25 16:43 | XRR_ITS ---
PROCEDURE INFORMATION: Exam: XR Chest Exam date and time: 12/25/2023 4:59 PM Age: 38 years old Clinical indication: Pain; Angina pectoris; Additional info: Cp TECHNIQUE: Imaging protocol: Radiologic exam of the chest. Views: 1 view. COMPARISON: CR (CHEST, ) 12/14/2023 6:19 PM FINDINGS: Lungs: Unremarkable. No consolidation. Pleural spaces: Unremarkable. No pleural effusion. No pneumothorax. Heart/Mediastinum: Unremarkable. No cardiomegaly. Bones/joints: Sternal sutures are again seen. No acute findings. XR/XR chest 1V portable [id number] IMPRESSION: No acute findings.
--- NOTE | 2023-12-25 16:46 | ED_ITS ---
HPI - Chest Pain General: Chief Complaint: Chest Pain Stated Complaint: cp Time Seen by Provider: 12/25/23 16:12 Source: patient Mode of arrival: ambulatory Limitations: no limitations History of Present Illness: This patient comes to the emergency department because of she had a recurrence of episodes that she is experienced many times in the past. She states that she was at her mother's and started eating and then had an onset of what she calls his chest discomfort and palpitations and this was followed by emesis. These are very similar to those that she is experienced in the past. She relates that she has had either what she states is a CABG or a valve replacement she is not clear as to which. She also states that she has had stents placed earlier this year. She has an ex-smoker. She does have a longstanding history of anxiety disorder as well as a questionable esophageal reflux disorder. She states these episodes are unpredictable to come at rest or come with activity. She states that she feels breathless at times when these occur. She denies any fevers or chills or other recent illness. Again she is an ex tobacco user. She does drink coffee but does not use energy drinks or any street drugs or any other caffeinated beverages. Prior episodes: Yes Associated symptoms: Reports nausea and palpitations; Deny abdominal pain, fever(s) or syncope Review of Systems Const: Denies: fever(s) or chills ENMT: Denies: odynophagia, nasal discharge or nasal congestion Card: Reports: chest pain and palpitations; Denies: syncope or pre-syncope Resp: Denies: productive cough GI: Reports: nausea; Denies: abdominal pain or diarrhea : Denies: flank pain, difficulty voiding, dysuria or urinary frequency Musc: Denies: back pain, extremity pain or extremity swelling Skin/Breast: Denies: rash Neuro: Denies: headache(s), numbness in extremities or weakness in extremities Psych: Reports: anxiety Endo: Denies: polyuria or polydipsia Georges/Lymph: Denies: easy bruising or easy bleeding PFS ED PFSH: Medical History Bed bug bite Hypertension Abnormal cardiovascular stress test Chest pain CAD (coronary artery disease) STEMI (ST elevation myocardial infarction) Family history of premature CAD Nicotine dependence, cigarettes, with unspecified nicotine-induced disorders Osteoarthritis of left knee High cholesterol delivery delivered Diabetes type 2, uncontrolled Hypercholesteremia Family history of early CAD Surgical History Hx of CABG History of delivery x 2 H/O tubal ligation Family History Father Diabetes Heart disease Mother Diabetes COPD (chronic obstructive pulmonary disease) Emphysema lung Heart disease Kidney failure Arthritis Social History Smoking and tobacco/nicotine status: current every day tobacco/nicotine user Quit status (tobacco/nicotine): has quit using Year quit tobacco: 10/16/2022 Former quit date comment: 1.5ppd X 27 years Second hand smoke exposure: No Substance/Drug Use: never Adopted: No Caregiver/support person: No Lives independently: Yes Housing: House Marital status: Number of children: 2 Highest education level completed: 9th Grade service: No Physical Exam Narrative: EXAM NARRATIVE: Patient is calm and quiet and appears to be in no acute distress. She answers questions appropriately in a goal-directed fashion. Const: COMMON NORMALS: no acute distress, patient oriented x3 and alert GENERAL APPEARANCE: cooperative and comfortable NUTRITIONAL APPEARANCE: overweight HENMT: COMMON NORMALS: normocephalic, Normal nasal mucous membranes and turbinates present, moist oral mucous membranes and oropharynx normal HEAD & SCALP: normocephalic NOSE: Normal nasal mucous membranes and turbinates present Eye: COMMON NORMALS: Equal, round and reactive pupils present, EOMs intact bilaterally and conjunctivae normal CONJUNCTIVA: Yes conjunctivae normal PUPIL: Yes Equal, round and reactive pupils present Neck/C-Spine: COMMON NORMALS: full ROM, no lymphadenopathy, no JVD and Thyroid normal THYROID: Thyroid normal Chest: COMMONS NORMALS: normal inspection of the chest and normal palpation of entire chest wall Resp: COMMON NORMALS: normal respiratory effort, No retractions, No use of accessory muscles and clear to auscultation bilaterally AUSCULTATION: clear to auscultation bilaterally Cardio: COMMON NORMALS: no JVD, regular rate, regular rhythm and Peripheral pulses 2+ throughout RATE: regular rate RHYTHM: regular rhythm HEART SOUNDS: Murmur heart sound present PERIPHERAL PULSES: Peripheral pulses 2+ throughout GI: COMMON NORMALS: Normal to inspection, nondistended, normoactive bowel sounds present, Soft to palpation and non-tender PALPATION: Yes Soft to palpation : COMMON NORMALS: Yes no CVA tenderness BLADDER/KIDNEY EXAM: Yes no CVA tenderness Back/Pelvis: COMMON NORMALS: no CVA tenderness, thoracic and lumbar spine normal to inspection, no thoracic nor lumbar tenderness and thoraco-lumbar ROM normal Extremity: COMMON NORMALS: normal to inspection, full ROM, capillary refill normal, no calf tenderness and no pedal edema Neuro: COMMON NORMALS: patient oriented x3, moves all extremities, no focal motor deficits and no sensory deficits noted SENSORIUM/ORIENTATION: Yes alert Psych: COMMON NORMALS: mental status grossly normal and cooperative Skin: COMMON NORMALS: no rashes or lesions noted, turgor normal and no jaundice GENERAL SKIN EXAM: no rashes or lesions noted and turgor normal Course Reevaluation(s): Reevaluation #1: Patient has decided that she does not want to engage in any further workup at this time. States these are similar symptoms to what she has had in the past. She desires to be discharged from the emergency department. He voices understanding that she is welcome to return at any time for recurrent symptoms. She is intact decision-making capacity is not apparently under the influence of any intoxicating substances or displaying an altered mental status. Time: 17:11 Vital Signs: Vital signs: Vital Signs Temperature 98.6 F 12/25/23 16:15 Pulse Rate 82 12/25/23 16:15 Blood Pressure 126/55 12/25/23 16:59 Pulse Oximetry 96 12/25/23 16:59 Oxygen Delivery Me thod Room Air 12/25/23 16:59 MDM - Chest Pain Medical Decision Making This patient presented to the emergency department with a history of chest discomfort and palpitations or sensation of rapid heart rate which she is experienced multiple times in the past. He has a history of cardiac procedures which includes ledge coronary artery bypass as well as some valvular repair. She had a recent sestamibi stress test as well as an echocardiogram within the last several months which are both normal and reassuring other than she has some very minimal tricuspid valve regurgitation. Her clinical exam was unrevealing for any evidence of acute ongoing emergency medical condition. Her initial EKG was reassuring. Workup was to ensure that there was no evidence of ACS or other ongoing emergency medical conditions. Prior to much progress made in her evaluation she decided to leave the emergency department. She expressed understanding that the workup had not been completed and voiced understanding of the risks and benefits. She had no clinical evidence to suggest she had an altered mental status and/or impaired decision- making. She is being discharged and welcome to return. XR interpretation done by ED provider, pending radiology final review ED provider radiology interpretation(s): My review of her portable chest x-ray revealed no evidence of acute disease process EKG Data EKG 1: I personally reviewed and interpreted this EKG as follows: Interpretation: Contemporaneous review of resting EKG reveals ventricular rate of 72 bpm. Normal FL interval, QRS duration, corrected QT interval. Normal axis. No acute ST-T wave changes noted. Discharge Plan Discharge Patient Disposition: Left Against Medical Advice Clinical Impression: Palpitation Condition: Stable Prescriptions: No Action nitroglycerin [Nitrostat] 0.4 mg tablet, sublingual 0.4 mg sublingual Q5M PRN (Reason: chest pain) Qty: 25 1RF Rx Instructions: do not exceed 3 doses per episode insulin glargine [Lantus Solostar U-100 Insulin] 100 unit/mL (3 mL) insulin pen 50 unit SUBCUT DAILY Qty: 45 0RF Novolog FlexPen U-100 Insulin 100 unit/mL (3 mL) insulin pen See Rx Instructions .ROUTE .COMPLEX Qty: 30 0RF Dose Instruction: INJECT DIRECTED SUBCUTANEOUSLY 3 TIMES DAILY AFTER MEALS BASED ON SLIDING SCALE, MAX 40 UNITS/DAY Rx Instructions: INJECT DIRECTED SUBCUTANEOUSLY 3 TIMES DAILY AFTER MEALS BASED ON SLIDING SCALE, MAX 45 UNITS/DAY atorvastatin 80 mg tablet 80 mg PO DAILY Qty: 90 0RF buspirone 10 mg tablet 20 mg PO BID 30 Days Qty: 120 2RF (DME) lancets [OneTouch UltraSoft Lancets] Misc See Rx Instructions .Route Qty: 200 1RF Rx Instructions: As directed carvedilol 6.25 mg tablet 6.25 mg PO BID Qty: 180 2RF (DME) pen needle, diabetic [BD Ultra-Fine Short Pen Needle] 31 gauge x 5/16 needle See Rx Instructions .ROUTE .MEDSUPPLY Qty: 200 0RF Rx Instructions: As directed (DME) Dexcom G7 Sensor Device See Rx Instructions .Route Qty: 3 1RF Rx Instructions: As directed (DME) Dexcom G7 Business Intelligence Etl Developer Misc See Rx Instructions .Route Qty: 1 0RF Rx Instructions: As directed (DME) OneTouch Ultra Test Strip See Rx Instructions .ROUTE .COMPLEX Qty: 400 1RF Dose Instruction: CHECK SUGAR 4-6 TIMES DAILY Rx Instructions: CHECK SUGAR 4-6 TIMES DAILY (DME) blood-glucose meter Kit See Rx Instructions .Route Qty: 1 0RF Rx Instructions: check sugar 4-6 times a day ranolazine 500 mg tablet extended release 12 hr 500 mg PO BID Qty: 180 3RF famotidine 20 mg tablet 20 mg PO DAILY Qty: 60 0RF meloxicam 15 mg tablet 15 mg PO DAILY Qty: 30 5RF Hold Instructions: Resume on 07/03/23. isosorbide mononitrate 30 mg tablet extended release 24 hr 30 mg PO DAILY Qty: 30 0RF pantoprazole 40 mg tablet,delayed release (DR/EC) 40 mg PO DAILY Qty: 40 0RF Rx Instructions: 1 tablet twice a day for 10 days then once daily clopidogrel 75 mg tablet 75 mg PO DAILY aspirin 81 mg tablet,delayed release (DR/EC) 81 mg PO DAILY Miralax 17 gram/dose powder 4 g PO BID PRN (Reason: Constipation) spironolactone 50 mg tablet 50 mg PO DAILY Jardiance 10 mg tablet 10 mg PO QAM Discharge Orders: Discharge ED (Routine); Ordered 12/25/23 Ordered By: Andreas Valero Referrals: Kasey Naqvi DO [Primary Care Provider] - Discharge Diet: Usual diet Discharge Activity: Increase activity as tolerated Activity Restrictions/Additional Instructions: We have decided to be discharged from the emergency department today. Before completion of your evaluation. You are welcome to return at any time should you wish to continue your evaluation or new symptoms or other concerning symptoms develop. Coding Level of Care Code ED Manager Social Responsibility for Marii Alegria
[2023-12-25 16:59] VITALS: BP 126/55; O2SAT 96
== END 2023-12-25 17:17 | disposition left against medical advice (07) ==
PROVIDERS: Emergency Provider Emergency Medicine; PCP Family Medicine
DX: R00.2 Palpitations (principal); Z53.29 Procedure and treatment not carried out because of patient's decision for other reasons; Z79.02 Long term (current) use of antithrombotics/antiplatelets; Z79.82 Long term (current) use of aspirin; Z79.4 Long term (current) use of insulin; Z72.0 Tobacco use; I10 Essential (primary) hypertension; I25.10 Atherosclerotic heart disease of native coronary artery without angina pectoris; I25.2 Old myocardial infarction; E11.9 Type 2 diabetes mellitus without complications; Z95.1 Presence of aortocoronary bypass graft
CPT/HCPCS: 71045; 93005; 99285

== ENCOUNTER 2023-12-26 23:34 | Emergency (ER) | payer MEDICAID, SELFPAY ==
[2023-12-26 23:35] VITALS: BP 129/80; PULSE 91; RESP 16; TEMP 36.6; O2SAT 97
--- NOTE | 2023-12-26 23:52 | W.ED.HA ---
HPI - Headache General: Chief Complaint: Headache Stated Complaint: new med head shooting pain vision spots Time Seen by Provider: 12/26/23 23:44 History of Present Illness: 38-year-old female with extensive cardiac history including a CABG he presents the emergency room with feeling of [id number] in her eyes ever since she started ranolazine about 2 to 3 days ago. She has not taken any medications such as Tylenol to help this. She has not called the prescribing provider or her primary provider. She initially could not even tell me the name of the medication that she has been taking. No vision changes. Just sharp feelings in her eyes. Review of Systems Narrative: Constitutional symptoms: Negative except as documented in HPI. Skin symptoms: Negative except as documented in HPI. Eye symptoms: Negative except as documented in HPI. ENMT symptoms: Negative except as documented in HPI. Respiratory symptoms: Negative except as documented in HPI. Cardiovascular symptoms: Negative except as documented in HPI. Gastrointestinal symptoms: Negative except as documented in HPI. Genitourinary symptoms: Negative except as documented in HPI. Musculoskeletal symptoms: Negative except as documented in HPI. Neurologic symptoms: Negative except as documented in HPI. Psychiatric symptoms: Negative except as documented in HPI. Endocrine symptoms: Negative except as documented in HPI. PFS ED PFSH: Medical History Bed bug bite Hypertension Abnormal cardiovascular stress test Chest pain CAD (coronary artery disease) STEMI (ST elevation myocardial infarction) Family history of premature CAD Nicotine dependence, cigarettes, with unspecified nicotine-induced disorders Osteoarthritis of left knee High cholesterol delivery delivered Diabetes type 2, uncontrolled Hypercholesteremia Family history of early CAD Surgical History Hx of CABG History of delivery x 2 H/O tubal ligation Family History Father Diabetes Heart disease Mother Diabetes COPD (chronic obstructive pulmonary disease) Emphysema lung Heart disease Kidney failure Arthritis Social History Smoking and tobacco/nicotine status: current every day tobacco/nicotine user Quit status (tobacco/nicotine): has quit using Year quit tobacco: 10/16/2022 Former quit date comment: 1.5ppd X 27 years Second hand smoke exposure: No Substance/Drug Use: never Adopted: No Caregiver/support person: No Lives independently: Yes Housing: House Marital status: Number of children: 2 Highest education level completed: 9th Grade service: No Physical Exam Narrative: EXAM NARRATIVE: General: Alert, no acute distress. Skin: warm and dry Head: Normocephalic Neck: Trachea midline Eye: Extraocular movements are intact. Ears, nose, mouth and throat: Oral mucosa moist Respiratory: Respirations are non-labored Musculoskeletal: Normal ROM Neurological: Alert and oriented, No focal neurological deficit observed. Psychiatric: Cooperative, appropriate mood & affect. Course Vital Signs: Vital signs: Vital Signs Temperature 98 F 12/26/23 23:35 Pulse Rate 91 12/26/23 23:35 Respiratory Rate 16 12/26/23 23:35 Blood Pressure 129/80 12/26/23 23:35 Pulse Oximetry 97 12/26/23 23:35 MDM - Headache Medical Decision Making Assessment and plan: Medication side effect -Blurred vision and eye irritation are listed side effects of this medication. Discontinuation of this should not have any adverse effects. She was started on this for her chronic chest pain issues. - Discharged home - Discussed plan with patient. Answered any questions. - Evaluation and treatment of this problem were appropriate in the emergency setting. No radiology studies performed this visit Discharge Plan Discharge Patient Disposition: Home Clinical Impression: Medication side effect Condition: Stable Prescriptions: No Action nitroglycerin [Nitrostat] 0.4 mg tablet, sublingual 0.4 mg sublingual Q5M PRN (Reason: chest pain) Qty: 25 1RF Rx Instructions: do not exceed 3 doses per episode insulin glargine [Lantus Solostar U-100 Insulin] 100 unit/mL (3 mL) insulin pen 50 unit SUBCUT DAILY Qty: 45 0RF Novolog FlexPen U-100 Insulin 100 unit/mL (3 mL) insulin pen See Rx Instructions .ROUTE .COMPLEX Qty: 30 0RF Dose Instruction: INJECT DIRECTED SUBCUTANEOUSLY 3 TIMES DAILY AFTER MEALS BASED ON SLIDING SCALE, MAX 40 UNITS/DAY Rx Instructions: INJECT DIRECTED SUBCUTANEOUSLY 3 TIMES DAILY AFTER MEALS BASED ON SLIDING SCALE, MAX 45 UNITS/DAY atorvastatin 80 mg tablet 80 mg PO DAILY Qty: 90 0RF buspirone 10 mg tablet 20 mg PO BID 30 Days Qty: 120 2RF (DME) lancets [OneTouch UltraSoft Lancets] Misc See Rx Instructions .Route Qty: 200 1RF Rx Instructions: As directed carvedilol 6.25 mg tablet 6.25 mg PO BID Qty: 180 2RF (DME) pen needle, diabetic [BD Ultra-Fine Short Pen Needle] 31 gauge x 5/16 needle See Rx Instructions .ROUTE .MEDSUPPLY Qty: 200 0RF Rx Instructions: As directed (DME) Dexcom G7 Sensor Device See Rx Instructions .Route Qty: 3 1RF Rx Instructions: As directed (DME) 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 isosorbide mononitrate 30 mg tablet extended release 24 hr 30 mg PO DAILY Qty: 30 0RF pantoprazole 40 mg tablet,delayed release (DR/EC) 40 mg PO DAILY Qty: 40 0RF Rx Instructions: 1 tablet twice a day for 10 days then once daily clopidogrel 75 mg tablet 75 mg PO DAILY aspirin 81 mg tablet,delayed release (DR/EC) 81 mg PO DAILY Miralax 17 gram/dose powder 4 g PO BID PRN (Reason: Constipation) spironolactone 50 mg tablet 50 mg PO DAILY Jardiance 10 mg tablet 10 mg PO QAM Discharge Orders: Discharge ED (Routine); Ordered 12/26/23 Ordered By: Janette De Guzman Referrals: Kasey Naqvi DO [Primary Care Provider] - 1-3 days Discharge Diet: Usual diet Discharge Activity: Resume usual activity Patient Instructions: Adverse Drug Reaction (ED) Activity Restrictions/Additional Instructions: Discontinue your new medication until you discuss this with your prescribing physician. Thank you for choosing [facility] for your healthcare needs today. Please realize this is an emergency room and that we are providing you with a medical screening exam and this may not be complete and all inclusive of all the testing and or work up that you may need to determine your ailment or severity of your illness. You have been screened and evaluated and felt safe for discharge. Health conditions do change or evolve sometimes and as such it is important that you follow up with your Primary Doctor to be re checked, 3-5 days is a general good time frame for follow up. You are always welcome to return to the ED for re assessment if your symptoms are worsening or you have new concerns Coding Level of Care Code ED Director Of Accounts Receivable for Marii Alegria
[2023-12-26] MEDS: acetaminophen 500 mg Tablet 1000 MG PO (23:57)
[2023-12-27 00:02] VITALS: PULSE 78; RESP 21
== END 2023-12-26 23:55 | disposition home or self-care (01) ==
PROVIDERS: Emergency Provider Emergency Medicine; PCP Family Medicine
DX: T46.99 Poisoning by, adverse effect of and underdosing of other agents primarily affecting the cardiovascular system (principal); E11.9 Type 2 diabetes mellitus without complications; I10 Essential (primary) hypertension; I25.10 Atherosclerotic heart disease of native coronary artery without angina pectoris; I25.2 Old myocardial infarction; E78.00 Pure hypercholesterolemia, unspecified; Z79.899 Other long term (current) drug therapy; Z79.4 Long term (current) use of insulin; Z79.84 Long term (current) use of oral hypoglycemic drugs; Z79.82 Long term (current) use of aspirin; F17.210 Nicotine dependence, cigarettes, uncomplicated; Z95.1 Presence of aortocoronary bypass graft; Z82.49 Family history of ischemic heart disease and other diseases of the circulatory system
CPT/HCPCS: 99283

== ENCOUNTER 2024-01-13 19:03 | Emergency (ER) | payer MEDICAID, SELFPAY ==
--- NOTE | 2024-01-13 19:04 | XRR_ITS ---
PROCEDURE INFORMATION: Exam: XR Chest Exam date and time: 01/13/2024 7:27 PM Age: 38 years old Clinical indication: Pain; Chest pressure; Prior surgery; Surgery date: 6+ months; Surgery type: Cabg; Additional info: Cp TECHNIQUE: Imaging protocol: Radiologic exam of the chest. Views: 1 view. COMPARISON: CR XR chest 1V portable [id number] 12/25/2023 4:59 PM FINDINGS: Lungs: The lungs are adequately expanded. No focal consolidations or pulmonary edema. Pleural spaces: No pleural effusions or pneumothorax. Heart/Mediastinum: Unremarkable. No cardiomegaly. Bones/joints: Median sternotomy wires. XR/XR chest 1V portable [id number] IMPRESSION: No acute pulmonary disease.
--- NOTE | 2024-01-13 19:06 | ECG_ITS ---
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 Measurements Intervals [place] Rate: 78 P: 21 [place]: 151 QRS: -3 QRSD: 81 T: 53 QT: 371 QTc: 424 Interpretive Statements SINUS RHYTHM POSSIBLE ANTERIOR MYOCARDIAL INFARCTION , OF INDETERMINATE AGE [30 ms Q WAVE IN V3/V4, OR R < 0.2 mV IN V4] PROBABLE INFERIOR MYOCARDIAL INFARCTION , OF INDETERMINATE AGE [35 ms Q WAVE IN II/aVF] Compared to ECG 12/25/2023 16:17:25 Myocardial infarct finding now present Electronically Signed On 01-15-2024 6:25:18 CDT by Pam Subramanian M.D. [id number]
[2024-01-13 19:12] VITALS: BP 135/85; PULSE 78; RESP 16; TEMP 36.7; O2SAT 98
[2024-01-13 19:56] LABS: Basophils % 0.4 %; Eosinophils # 0.1 10^3/uL (0.0-0.8); Eosinophils % 1.3 %; Hematocrit 42.2 % (36-47); Lymphocytes # 2.7 10^3/uL (0.8-4.8); Lymphocytes % 28.2 %; Mean Corpuscular HGB Conc 32.7 g/dL (30-55); Mean Corpuscular Hemoglobin 28.5 pg (27-33); Mean Platelet Volume 9.3 fL (7.4-10.4); Monocytes # 0.6 10^3/uL (0.2-0.9); Monocytes % 6.6 %; Neutrophils # 5.96 10^3/uL (1.8-7.7); Neutrophils % 63.2 %; Nucleated Red Blood Cells % 0 %; Platelet Count 319 10^3/cmm (157-399); Red Blood Count 4.85 10^6/uL (3.85-5.65); Red Cell Distribution Width 12.4 % (12.1-15.1); White Blood Count 9.43 10^3/uL (3.29-11.43)
[2024-01-13 20:13] LABS: Troponin(5th) Baseline < 6 ng/L (0-10)
[2024-01-13 20:34] LABS: Alanine Aminotransferase 20 U/L (0-33); Albumin Level 4.3 g/dL (3.5-5.2); Alkaline Phosphatase 75 U/L (35-105); Blood Urea Nitrogen 10 mg/dL (6-20); Calcium 9.4 mg/dL (8.5-10.5); Carbon Dioxide 22 mmol/L (22-29); Chloride 101 mmol/L (98-107); Creatinine Clr Calc Pharmacy 241.5358; Globulin 2.9 g/dL (1.3-4.6); Glomerular Filtration Rate 180.6 mL/min (90-130); Glucose 155 mg/dL (65-115); NT Pro B Type Natriuretic Pept 73 pg/mL (0-125); Osmolality Calculated 284 mOsm/kg (285-295); Sodium 136 mmol/L (136-145); Total Bilirubin 0.3 mg/dL (0.15-1.2); Total Protein 7.2 g/dL (6.6-8.7)
[2024-01-13 20:54] LABS: Aspartate Amino Transferase 16 U/L (0-32)
== END 2024-01-13 20:34 | disposition left against medical advice (07) ==
PROVIDERS: Emergency Provider Emergency Medicine; PCP Family Medicine
DX: Z53.21 Procedure and treatment not carried out due to patient leaving prior to being seen by health care provider (principal)
CPT/HCPCS: 36415; 71045; 80053; 83880; 84484; 85025; 93005; 99285

== ENCOUNTER → 2024-02-03 14:09 | Outpatient (BNVA) | payer MEDICAID, SELFPAY | PROVIDERS: PCP Family Medicine; Visit Provider Internal Medicine | DX: E78.00 Pure hypercholesterolemia, unspecified (principal); I25.118 Atherosclerotic heart disease of native coronary artery with other forms of angina pectoris; I10 Essential (primary) hypertension | CPT/HCPCS: 99214 ==

== ENCOUNTER → 2024-02-11 10:29 | Outpatient (BNVA) | payer MEDICAID, SELFPAY | PROVIDERS: PCP Family Medicine; Visit Provider Internal Medicine | DX: E78.00 Pure hypercholesterolemia, unspecified; E11.65 Type 2 diabetes mellitus with hyperglycemia; Z82.49 Family history of ischemic heart disease and other diseases of the circulatory system; I25.118 Atherosclerotic heart disease of native coronary artery with other forms of angina pectoris; Z79.4 Long term (current) use of insulin; Z79.84 Long term (current) use of oral hypoglycemic drugs | CPT/HCPCS: 99214 ==

== ENCOUNTER 2024-02-18 17:41 | Emergency (ER) | payer MEDICAID, SELFPAY ==
--- NOTE | 2024-02-18 17:41 | ECG_ITS ---
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 Measurements Intervals [place] Rate: 69 P: 23 [place]: 162 QRS: 7 QRSD: 98 T: 53 QT: 374 QTc: 403 Interpretive Statements SINUS RHYTHM Poor R wave progression POSSIBLE ANTERIOR MYOCARDIAL INFARCTION , OF INDETERMINATE AGE [30 ms Q WAVE IN V3/V4, OR R < 0.2 mV IN V4] INTERPRETATION BASED ON A DEFAULT AGE OF 40 YEARS Compared to ECG 01/13/2024 19:06:10 No significant changes Electronically Signed On 02-19-2024 17:31:42 CDT by Pam Subramanian M.D. [id number] f
--- NOTE | 2024-02-18 17:48 | XRR_ITS ---
PROCEDURE INFORMATION: Exam: XR Chest Exam date and time: 02/18/2024 5:59 PM Age: 38 years old Clinical indication: Pain; Chest pressure; Prior surgery; Surgery date: 6+ months; Surgery type: Open heart; Additional info: Cp TECHNIQUE: Imaging protocol: Radiologic exam of the chest. Views: 1 view. COMPARISON: CR (CHEST, ) 01/13/2024 7:27 PM FINDINGS: Lungs: No significant active pathology. Pleural spaces: No pleural effusion or pneumothorax. Heart/Mediastinum: Unremarkable. Bones/joints: Prior median sternotomy. XR/XR chest 1V portable [id number] IMPRESSION: No acute pathology or significant interval change.
[2024-02-18 17:49] VITALS: BP 143/89; PULSE 74; TEMP 36.8; O2SAT 99; BMI 36.1
[2024-02-18 18:10] LABS: Basophils # 0.1 10^3/uL (0.0-0.1); Basophils % 0.5 %; Eosinophils # 0.2 10^3/uL (0.0-0.8); Eosinophils % 1.5 %; Hematocrit 40.8 % (36-47); Lymphocytes # 2.8 10^3/uL (0.8-4.8); Lymphocytes % 28.7 %; Mean Corpuscular HGB Conc 32.6 g/dL (30-55); Mean Corpuscular Hemoglobin 28.5 pg (27-33); Mean Corpuscular Volume 87.6 fl (85-98); Mean Platelet Volume 9.3 fL (7.4-10.4); Monocytes # 0.6 10^3/uL (0.2-0.9); Monocytes % 6.3 %; Neutrophils # 6.13 10^3/uL (1.8-7.7); Neutrophils % 62.8 %; Nucleated Red Blood Cells % 0 %; Platelet Count 308 10^3/cmm (157-399); Red Blood Count 4.66 10^6/uL (3.85-5.65); Red Cell Distribution Width 12.6 % (12.1-15.1); White Blood Count 9.76 10^3/uL (3.29-11.43)
[2024-02-18 18:29] LABS: Troponin(5th) Baseline < 6 ng/L (0-10)
[2024-02-18 18:30] LABS: Alanine Aminotransferase 15 U/L (0-33); Albumin Level 4.3 g/dL (3.5-5.2); Alkaline Phosphatase 70 U/L (35-105); Blood Urea Nitrogen 14 mg/dL (6-20); Calcium 9.1 mg/dL (8.5-10.5); Carbon Dioxide 24 mmol/L (22-29); Chloride 101 mmol/L (98-107); Creatinine Clr Calc Pharmacy 193.6746; Globulin 2.4 g/dL (1.3-4.6); Glomerular Filtration Rate 139.6 mL/min (90-130); Glucose 151 mg/dL (65-115); Lipase 28 U/L (13-60); Osmolality Calculated 289 mOsm/kg (285-295); Sodium 138 mmol/L (136-145); Total Bilirubin 0.2 mg/dL (0.15-1.2); Total Protein 6.7 g/dL (6.6-8.7)
[2024-02-18 18:32] LABS: Anion Gap 17.1 (5-19); Aspartate Amino Transferase 15 U/L (0-32); Potassium 4.1 mmol/L (3.5-5.1)
== END 2024-02-18 19:17 | disposition left against medical advice (07) ==
PROVIDERS: Emergency Medicine; Emergency Provider Family Medicine; PCP Family Medicine
DX: Z53.21 Procedure and treatment not carried out due to patient leaving prior to being seen by health care provider (principal)
CPT/HCPCS: 36415; 71045; 80053; 83690; 84484; 85025; 93005; 99285

== ENCOUNTER 2024-03-22 19:17 | Emergency (ER) | payer MEDICAID, SELFPAY ==
--- NOTE | 2024-03-22 19:18 | ECG_ITS ---
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 Measurements Intervals [place] Rate: 84 P: 27 [place]: 151 QRS: 1 QRSD: 95 T: 65 QT: 360 QTc: 426 Interpretive Statements SINUS RHYTHM NONSPECIFIC T-WAVE ABNORMALITY Compared to ECG 02/18/2024 17:41:31 T-wave abnormality now present Poor R-wave progression no longer present Myocardial infarct finding no longer present Electronically Signed On 03-22-2024 22:47:45 CDT by Pam Subramanian M.D. [id number]
[2024-03-22 19:24] VITALS: BP 147/82; PULSE 85; RESP 18; TEMP 36.7; O2SAT 99; BMI 36.0
== END 2024-03-22 19:48 | disposition left against medical advice (07) ==
LOC: ER 19:21
PROVIDERS: Emergency Provider Family Medicine
DX: Z53.21 Procedure and treatment not carried out due to patient leaving prior to being seen by health care provider (principal)
CPT/HCPCS: 93005

== ENCOUNTER 2024-04-08 21:25 | Emergency (ER) | payer MEDICAID, SELFPAY ==
[2024-04-08 21:27] VITALS: BP 148/88; PULSE 76; RESP 16; O2SAT 100; BMI 36.0
--- NOTE | 2024-04-08 21:28 | XRR_ITS ---
PROCEDURE INFORMATION: Exam: XR Chest Exam date and time: 04/08/2024 10:34 PM Age: 38 years old Clinical indication: Pain; Chest pressure; Prior surgery; Surgery date: 6+ months; Surgery type: Cabg 2022; Additional info: Chest pain TECHNIQUE: Imaging protocol: Radiologic exam of the chest. Views: 1 view. COMPARISON: CR (CHEST, ) 02/18/2024 5:59 PM FINDINGS: Lungs: Unremarkable. No consolidation. Pleural spaces: Unremarkable. No pleural effusion. No pneumothorax. Heart/Mediastinum: Coronary artery stenting. Bones/joints: Post median sternotomy and CABG. XR/XR chest 1V portable [id number] IMPRESSION: No acute cardiopulmonary findings.
--- NOTE | 2024-04-08 21:28 | ECG_ITS ---
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 Measurements Intervals [place] Rate: 81 P: 20 [place]: 140 QRS: 13 QRSD: 92 T: 58 QT: 371 QTc: 432 Interpretive Statements SINUS RHYTHM POSSIBLE ANTERIOR MYOCARDIAL INFARCTION , OF INDETERMINATE AGE [30 ms Q WAVE IN V3/V4, OR R < 0.2 mV IN V4] Compared to ECG 03/22/2024 19:18:19 Myocardial infarct finding now present T-wave abnormality no longer present Electronically Signed On 04-08-2024 22:38:03 CDT by Pam Subramanian M.D. [id number]
[2024-04-08 21:34] VITALS: PULSE 82; O2SAT 100
--- NOTE | 2024-04-08 21:46 | W.ED.CHESTPA ---
HPI - Chest Pain General: Chief Complaint: Chest Pain Stated Complaint: chest pain Time Seen by Provider: 04/08/24 21:27 Source: patient Mode of arrival: ambulatory Limitations: no limitations History of Present Illness: Patient is a 38 yo with PMH of premature coronary artery disease, diabetes, former smoker, dyslipidemia and obesity?here for complaints of chest pain, palpitations, dizziness. Patient already, at her young age, has a significant cardiac history. She states her father suffered his first heart attack at the age of 29. Patient states she has already lost her twin sister to heart disease at the age of 31. Patient herself has already underwent CABG and multiple cardiac stenting. Her last cardiac catheterization was performed 11/07 and results are below: Conclusions 1. Severe proximal LAD 2. stenosis s/p successful revascularization with 1 stent. FINN to LAD is patent however after touchdown [place] vessel is totally occluded. Proximal LAD is supplying blood flow to 2 medium sized vessels (likely large septals supplying collaterals to apical LAD) SVG to RCA is occluded. SVG to OM/circumflex artery is patent. 3. Patient has prior CABG. 4. Normal left ventricular systolic function. Ejection fraction of 55%. 5. Proximal Left Anterior Descending was treated with a Balloon, and Drug Eluting Stent. Since this procedure in October of this year she has had 13 emergency department visits, 3 cardiology follow-up visits as well as 3 urgent care/primary care visits all for chest pain related complaints. She does also have a history of GERD/acid reflux/anxiety that sometimes will cause her chest pains. On her visit today, she tells me she has had intermittent chest pains over the last several days. She feels like she gets dizzy when she gets up and ambulates. She states when she lies down she will sometimes feel like her heart is flip-flopping . MD complaint: chest pain Pertinent past history: coronary artery disease and CABG Onset (ago): day(s) Timing of current episode: episodic Prior episodes: Yes Onset: during rest and during exertion Pain location: substernal, left chest and right chest Pain radiation: right arm and back Severity: moderate Relieving factors: nothing Exacerbating factors: nothing Associated symptoms: Reports palpitations; Deny abdominal pain, dyspnea, fever(s) or syncope Treatment prior to arrival: none Risk Factors: Coronary artery disease risk factors: diabetes, hypertension and family history of CAD before age 50 Thoracic aortic dissection risk factors: none Related Data Home Medications Medication Instructions Recorded Confirmed empagliflozin 10 mg tablet 10 mg PO QAM 12/04/23 02/11/24 (Jardiance) spironolactone 50 mg tablet 50 mg PO DAILY 12/04/23 02/11/24 Previous Rx's Medication Instructions Recorded carvedilol 6.25 mg tablet 6.25 mg PO BID #180 tabs 10/02/23 meloxicam 15 mg tablet 15 mg PO DAILY #30 tabs 10/07/23 atorvastatin 80 mg tablet 80 mg PO DAILY #90 tabs 11/06/23 blood-glucose meter,continuous #1 ea 11/22/23 (Dexcom G7 Internet Marketing Coordinator) buspirone 10 mg tablet 20 mg (2 x 10 mg) PO BID 30 days 11/29/23 #120 tabs blood-glucose meter #1 ea 12/11/23 omeprazole magnesium 20 mg 20 mg PO DAILY #20 tabs 01/16/24 tablet,delayed release (Prilosec OTC) aspirin 81 mg tablet,delayed See Rx Instructions .Route 01/20/24 release .COMPLEX #90 tabs polyethylene glycol 3350 17 See Rx Instructions .Route 01/27/24 gram/dose oral powder .COMPLEX #510 grams isosorbide mononitrate 30 mg 30 mg PO DAILY #90 tabs 02/03/24 tablet,extended release 24 hr blood-glucose sensor (Dexcom G7 #3 ea 02/11/24 Sensor device) insulin glargine 100 unit/mL (3 See Rx Instructions .Route 02/11/24 mL) subcutaneous pen (Lantus .COMPLEX #15 mL Solostar U-100 Insulin) lancets #200 ea 02/11/24 nitroglycerin 0.4 mg sublingual 0.4 mg sublingual Q5M PRN chest 02/11/24 tablet (Nitrostat) pain #25 tabs insulin aspart U-100 100 unit/mL See Rx Instructions .Route 02/24/24 (3 mL) subcutaneous pen (Novolog .COMPLEX #30 mL FlexPen U-100 Insulin aspart) blood-glucose meter (OneTouch #1 ea 03/09/24 Ultra2 Meter) clopidogrel 75 mg tablet 75 mg PO DAILY #30 tabs 03/09/24 pen needle, diabetic 31 gauge x #200 ea 03/09/24 5/16 (TechLITE Pen Needle) Allergies Allergy/AdvReac Type Severity Reaction Status Date / Time ranolazine [From Ranexa] Allergy ADR-Blurry Verified 03/28/24 20:07 Vision Review of Systems Const: Reports: fatigue; Denies: fever(s), chills, body aches or malaise ENMT: Denies: throat pain or odynophagia Card: Reports: chest pain, palpitations, edema and lightheadedness; Denies: irregular heart rhythm, swelling of feet/ankles, syncope, pre-syncope or orthopnea Resp: Denies: dyspnea GI: Denies: abdominal pain Musc: Denies: neck pain, back pain, extremity pain, extremity swelling, joint pain or joint swelling Skin/Breast: Denies: rash Neuro: Reports: dizziness; Denies: headache(s), numbness in extremities, weakness in extremities or sensory changes PFSH ED PFSH: Medical History Bed bug bite Hypertension Abnormal cardiovascular stress test Chest pain CAD (coronary artery disease) STEMI (ST elevation myocardial infarction) Family history of premature CAD Nicotine dependence, cigarettes, with unspecified nicotine-induced disorders Osteoarthritis of left knee High cholesterol delivery delivered Diabetes type 2, uncontrolled Hypercholesteremia Family history of early CAD Surgical History Hx of CABG History of delivery x 2 H/O tubal ligation Family History Father Diabetes Heart disease Mother Diabetes COPD (chronic obstructive pulmonary disease) Emphysema lung Heart disease Kidney failure Arthritis Social History Smoking and tobacco/nicotine status: former use of tobacco/nicotine Quit status (tobacco/nicotine): has quit using Year quit tobacco: 10/16/2022 Former quit date comment: 1.5ppd X 27 years Second hand smoke exposure: No Substance/Drug Use: never Adopted: No Caregiver/support person: No Lives independently: Yes Housing: House Marital status: Number of children: 2 Highest education level completed: 9th Grade service: No Physical Exam Const: COMMON NORMALS: no acute distress, patient oriented x3, no limitations, alert and well nourished GENERAL APPEARANCE: cooperative and appears older than stated age NUTRITIONAL APPEARANCE: overweight ORIENTATION/CONSCIOUSNESS: Yes awake, Yes oriented to person, Yes oriented to place and Yes oriented to time Chest: COMMONS NORMALS: normal inspection of the chest and normal palpation of entire chest wall Resp: COMMON NORMALS: normal respiratory effort and clear to auscultation bilaterally AUSCULTATION: clear to auscultation bilaterally Cardio: COMMON NORMALS: regular rate and regular rhythm RATE: regular rate RHYTHM: regular rhythm GI: COMMON NORMALS: Normal to inspection, nondistended, normoactive bowel sounds present, Soft to palpation, non-tender and no masses PALPATION: Yes Soft to palpation Extremity: COMMON NORMALS: capillary refill normal, no joint enlargement, no clubbing, cyanosis or edema, no calf tenderness and no pedal edema GENERAL: Yes normal exam except as noted Neuro: LORENZO COMA SCALE: document GCS findings Lorenzo coma scale eye opening: Spontaneous [place] coma scale verbal response: Orientated [place] coma scale motor response: Obey commands [place] coma scale total score: 15 COMMON NORMALS: patient oriented x3 SENSORIUM/ORIENTATION: Yes alert, Yes oriented to person, Yes oriented to place and Yes oriented to time Skin: COMMON NORMALS: no rashes or lesions noted GENERAL SKIN EXAM: no rashes or lesions noted Course Vital Signs: Vital signs: Vital Signs Pulse Rate 71 04/08/24 23:30 Respiratory Rate 16 04/08/24 21:27 Blood Pressure 110/64 04/08/24 23:30 Pulse Oximetry 96 04/08/24 23:30 Oxygen Delivery Me thod Room Air 04/08/24 21:27 MDM - Chest Pain Medical Decision Making Patient appears in no acute distress. Her vital signs been stable throughout her emergency department stay. Her blood work is nonactionable. Her baseline troponin is normal. Repeat/2-hour showing no significant change. Her EKGs are nonischemic. CXR unremarkable. No acute changes when compared to previous EKGs. She has follow-up with her cardiology office in 5 days. She will be allowed discharge with return precautions. Medical Records I reviewed the patient's medical records. Lab Data I reviewed the patient's lab results. 04/08/24 22:05 04/08/24 22:05 Radiology Impressions Chest X-Ray 04/08/24 21:28 IMPRESSION: No acute cardiopulmonary findings. Laboratory Results WBC 11.57 10^3/uL (3.29-11.43) H 04/08/24 22:05 RBC 4.87 10^6/uL (3.85-5.65) 04/08/24 22:05 Hgb 13.90 g/dL (11.27-16.99) 04/08/24 22:05 Hct 43.2 % (36-47) 04/08/24 22:05 MCV 88.7 fl (85-98) 04/08/24 22:05 MCH 28.5 pg (27-33) 04/08/24 22:05 MCHC 32.2 g/dL (30-55) 04/08/24 22:05 RDW 12.7 % (12.1-15.1) 04/08/24 22:05 Plt Count 266 10^3/cmm (157-399) 04/08/24 22:05 MPV 9.9 fL (7.4-10.4) 04/08/24 22:05 Neut % (Auto) 63.3 % 04/08/24 22:05 Lymph % (Auto) 29.2 % 04/08/24 22:05 Evans % (Auto) 5.4 % 04/08/24 22:05 Eos % (Auto) 1.4 % 04/08/24 22:05 Baso % (Auto) 0.4 % 04/08/24 22:05 Neut # (Auto) 7.33 10^3/uL (1.8-7.7) 04/08/24 22:05 Lymph # (Auto) 3.4 10^3/uL (0.8-4.8) 04/08/24 22:05 Evans # (Auto) 0.6 10^3/uL (0.2-0.9) 04/08/24 22:05 Eos # (Auto) 0.2 10^3/uL (0.0-0.8) 04/08/24 22:05 Baso # (Auto) 0.1 10^3/uL (0.0-0.1) 04/08/24 22:05 Nucleated RBC % (auto) 0 % 04/08/24 22:05 Nucleated RBCs # 0.0 /100WBC 04/08/24 22:05 Sodium 136 mmol/L (136-145) 04/08/24 22:05 Potassium 3.9 mmol/L (3.5-5.1) 04/08/24 22:05 Chloride 101 mmol/L (98-107) 04/08/24 22:05 Carbon Dioxide 23 mmol/L (22-29) 04/08/24 22:05 Anion Gap 15.9 (5-19) 04/08/24 22:05 BUN 8 mg/dL (6-20) 04/08/24 22:05 Creatinine 0.4 mg/dL (0.5-0.9) L 04/08/24 22:05 GFR Calculation 180.6 mL/min (90-130) H 04/08/24 22:05 Glucose 210 mg/dL (65-115) H 04/08/24 22:05 Calculated Osmolality 287 mOsm/kg (285-295) 04/08/24 22:05 Calcium 8.6 mg/dL (8.5-10.5) 04/08/24 22:05 Total Bilirubin 0.2 mg/dL (0.15-1.2) 04/08/24 22:05 AST 14 U/L (0-32) 04/08/24 22:05 ALT 18 U/L (0-33) 04/08/24 22:05 Alkaline Phosphatase 68 U/L (35-105) 04/08/24 22:05 Troponin T Baseline 8 ng/L (0-10) 04/08/24 22:05 Troponin T 120 Minute 8.52 ng/L (0-10) 04/09/24 00:12 Delta Troponin T 0.52 ABS# (0-10) 04/09/24 00:12 NT-Pro-B Natriuret Pep 70 pg/mL (0-125) 04/08/24 22:05 Total Protein 6.5 g/dL (6.6-8.7) L 04/08/24 22:05 Albumin 4.2 g/dL (3.5-5.2) 04/08/24 22:05 Globulin 2.3 g/dL (1.3-4.6) 04/08/24 22:05 HCG, Qual Negative (Negative) 04/08/24 22:05 All radiology interpretation(s) finalized by discharge Discharge Plan Discharge Patient Disposition: Home Clinical Impression: Chest pain Qualifiers: Chest pain type: unspecified Qualified Code(s): R07.9 - Chest pain, unspecified Condition: Stable Prescriptions: No Action atorvastatin 80 mg tablet 80 mg PO DAILY Qty: 90 0RF buspirone 10 mg tablet 20 mg PO BID 30 Days Qty: 120 2RF (DME) Dexcom G7 Sensor Device See Rx Instructions .Route Qty: 3 1RF Rx Instructions: As directed (DME) lancets Misc See Rx Instructions .Route Qty: 200 1RF Rx Instructions: As directed omeprazole magnesium [Prilosec OTC] 20 mg tablet,delayed release (DR/EC) 20 mg PO DAILY Qty: 20 0RF isosorbide mononitrate 30 mg tablet extended release 24 hr 30 mg PO DAILY Qty: 90 3RF carvedilol 6.25 mg tablet 6.25 mg PO BID Qty: 180 2RF (DME) Dexcom G7 Internet Marketing Coordinator Misc See Rx Instructions .Route Qty: 1 0RF Rx Instructions: As directed (DME) blood-glucose meter Kit See Rx Instructions .Route Qty: 1 0RF Rx Instructions: check sugar 4-6 times a day aspirin 81 mg tablet,delayed release (DR/EC) See Rx Instructions .ROUTE .COMPLEX Qty: 90 1RF Dose Instruction: TAKE 1 TABLET BY MOUTH EVERY DAY Rx Instructions: TAKE 1 TABLET BY MOUTH EVERY DAY polyethylene glycol 3350 17 gram/dose powder See Rx Instructions .ROUTE .COMPLEX Qty: 510 0RF Dose Instruction: TAKE 1/4 CAPFUL WITH 8OZ OF LIQUID TWICE DAILY Rx Instructions: TAKE 1/4 CAPFUL WITH 8OZ OF LIQUID TWICE DAILY insulin glargine [Lantus Solostar U-100 Insulin] 100 unit/mL (3 mL) insulin pen See Rx Instructions .ROUTE .COMPLEX Qty: 15 1RF Dose Instruction: INJECT 50 UNITS SUBCUTANEOUSLY DAILY Rx Instructions: INJECT 50 UNITS SUBCUTANEOUSLY DAILY nitroglycerin [Nitrostat] 0.4 mg tablet, sublingual 0.4 mg sublingual Q5M PRN (Reason: chest pain) Qty: 25 1RF Rx Instructions: do not exceed 3 doses per episode Novolog FlexPen U-100 Insulin 100 unit/mL (3 mL) insulin pen See Rx Instructions .ROUTE .COMPLEX Qty: 30 5RF Dose Instruction: INJECT DIRECTED SUBCUTANEOUSLY 3 TIMES DAILY AFTER MEALS BASED ON SLIDING SCALE, MAX 40 UNITS/DAY Rx Instructions: INJECT DIRECTED SUBCUTANEOUSLY 3 TIMES DAILY AFTER MEALS BASED ON SLIDING SCALE, MAX 45 UNITS/DAY clopidogrel 75 mg tablet 75 mg PO DAILY Qty: 30 0RF Rx Instructions: Must have appointment for further refills (DME) pen needle, diabetic [TechLITE Pen Needle] 31 gauge x 5/16 needle See Rx Instructions .ROUTE .COMPLEX Qty: 200 5RF Dose Instruction: USE DIRECTED Rx Instructions: USE DIRECTED (DME) blood-glucose meter [OneTouch Ultra2 Meter] [facility] See Rx Instructions .ROUTE .COMPLEX Qty: 1 5RF Dose Instruction: CHECK SUGAR 4-6 TIMES A DAY Rx Instructions: CHECK SUGAR 4-6 TIMES A DAY meloxicam 15 mg tablet 15 mg PO DAILY Qty: 30 5RF Hold Instructions: Resume on 07/03/23. spironolactone 50 mg tablet 50 mg PO DAILY Jardiance 10 mg tablet 10 mg PO QAM Discharge Orders: Discharge ED (Routine); Ordered 04/09/24 Ordered By: Sarah Way Activity Restrictions/Additional Instructions: Please follow-up with your cardiology office on 04/14 at 11:00 as currently scheduled. You may return to the emergency department for worsening chest pain, shortness of breath, difficulty breathing, lightheadedness/dizziness/passing out episodes, generally feeling worse or unwell, or any other concerns you may have. Coding Level of Care Code ED Monumental Stonemason for Marii Alegria
[2024-04-08 22:18] LABS: Basophils # 0.1 10^3/uL (0.0-0.1); Basophils % 0.4 %; Eosinophils # 0.2 10^3/uL (0.0-0.8); Eosinophils % 1.4 %; Hematocrit 43.2 % (36-47); Lymphocytes # 3.4 10^3/uL (0.8-4.8); Lymphocytes % 29.2 %; Mean Corpuscular HGB Conc 32.2 g/dL (30-55); Mean Corpuscular Hemoglobin 28.5 pg (27-33); Mean Corpuscular Volume 88.7 fl (85-98); Mean Platelet Volume 9.9 fL (7.4-10.4); Monocytes # 0.6 10^3/uL (0.2-0.9); Monocytes % 5.4 %; Neutrophils # 7.33 10^3/uL (1.8-7.7); Neutrophils % 63.3 %; Nucleated Red Blood Cells % 0 %; Platelet Count 266 10^3/cmm (157-399); Red Blood Count 4.87 10^6/uL (3.85-5.65); Red Cell Distribution Width 12.7 % (12.1-15.1); White Blood Count 11.57 10^3/uL (3.29-11.43)
[2024-04-08 22:28] LABS: HCG, Serum Qual Negative (Negative)
[2024-04-08 22:34] VITALS: BP 114/67; PULSE 73; O2SAT 98
[2024-04-08 22:37] LABS: Troponin(5th) Baseline 8 ng/L (0-10)
[2024-04-08 22:40] LABS: Alanine Aminotransferase 18 U/L (0-33); Albumin Level 4.2 g/dL (3.5-5.2); Alkaline Phosphatase 68 U/L (35-105); Anion Gap 15.9 (5-19); Aspartate Amino Transferase 14 U/L (0-32); Blood Urea Nitrogen 8 mg/dL (6-20); Calcium 8.6 mg/dL (8.5-10.5); Carbon Dioxide 23 mmol/L (22-29); Chloride 101 mmol/L (98-107); Creatinine Clr Calc Pharmacy 241.5358; Globulin 2.3 g/dL (1.3-4.6); Glomerular Filtration Rate 180.6 mL/min (90-130); Glucose 210 mg/dL (65-115); Osmolality Calculated 287 mOsm/kg (285-295); Potassium 3.9 mmol/L (3.5-5.1); Sodium 136 mmol/L (136-145); Total Bilirubin 0.2 mg/dL (0.15-1.2); Total Protein 6.5 g/dL (6.6-8.7)
[2024-04-08 22:46] LABS: NT Pro B Type Natriuretic Pept 70 pg/mL (0-125)
[2024-04-08 23:00] VITALS: BP 120/77; PULSE 71; O2SAT 98
[2024-04-08 23:30] VITALS: BP 110/64; PULSE 71; O2SAT 96
--- NOTE | 2024-04-08 23:42 | ECG_ITS ---
[facility] Date: 2024-04[facility]08 Pat Name: Oralia Moralez Department: Room: Gender: Female Front Office Medical Assistant: : 1985 Requested By: Sarah Way Order Number: [id number] Gambino MD: Pam Subramanian M.D. Measurements Intervals [place] Rate: 68 P: 33 VT: 162 QRS: 20 QRSD: 94 T: 61 QT: 414 QTc: 443 Interpretive Statements SINUS RHYTHM Compared to ECG 04/08/2024 21:28:13 Myocardial infarct finding no longer present Electronically Signed On 04-09-2024 23:05:34 CDT by Pam Subramanian M.D. [email or web address]
--- NOTE | 2024-04-09 00:16 | ECG_ITS ---
[facility] Date: 2024-[facility]09 Pat Name: Oralia Moralez Department: Room: Gender: Female Package Sorter: : 1985 Requested By: Sarah Way Order Number: [id number] Gambino MD: Pam Subramanian M.D. Measurements Intervals [place] Rate: 63 P: 28 MO: 173 QRS: 12 QRSD: 89 T: 59 QT: 417 QTc: 429 Interpretive Statements SINUS RHYTHM Compared to ECG 04/08/2024 23:42:01 No significant changes Electronically Signed On 04-09-2024 23:07:18 CDT by Pam Subramanian M.D. [email or web address]
[2024-04-09 00:30] VITALS: BP 120/73; PULSE 66; O2SAT 97
[2024-04-09 00:37] LABS: Troponin 5 2HR 8.52 ng/L (0-10); Troponin 5 2HR Delta 0.52 ABS# (0-10)
[2024-04-09 01:07] VITALS: BP 122/53; PULSE 66; O2SAT 100
== END 2024-04-09 01:08 | disposition home or self-care (01) ==
PROVIDERS: Emergency Provider Physician Assistant
DX: R07.9 Chest pain, unspecified (principal); I25.10 Atherosclerotic heart disease of native coronary artery without angina pectoris; E11.9 Type 2 diabetes mellitus without complications; E78.5 Hyperlipidemia, unspecified; Z87.891 Personal history of nicotine dependence; Z82.49 Family history of ischemic heart disease and other diseases of the circulatory system; I25.2 Old myocardial infarction; Z95.1 Presence of aortocoronary bypass graft; Z95.5 Presence of coronary angioplasty implant and graft
CPT/HCPCS: 36415; 71045; 80053; 83880; 84484; 84703; 85025; 93005; 99285

== ENCOUNTER → 2024-04-14 10:50 | Outpatient (BNVA) | payer MEDICAID, SELFPAY | PROVIDERS: Visit Provider Nurse Practitioner Family | DX: I25.118 Atherosclerotic heart disease of native coronary artery with other forms of angina pectoris (principal); I10 Essential (primary) hypertension; I49.9 Cardiac arrhythmia, unspecified; E78.5 Hyperlipidemia, unspecified; Z87.891 Personal history of nicotine dependence | CPT/HCPCS: 99214 ==

== ENCOUNTER 2024-05-05 06:36 | Outpatient (CLI) | payer MEDICAID, SELFPAY ==
--- NOTE | 2024-05-05 | ECG_ITS ---
[facility] Test Date: 2024-05-05 Pat Name: Oralia Moralez Department: Room: Gender: Female Certified Low Vision Therapist: : 1985 Requested By: Tiffany Valdez Order Number: [id number] Gambino MD: Michael Gillette M.D. Interpretive Statements LEXISCAN SESTAMIBI STRESS TEST Procedure: At the baseline, the blood pressure was 118/85 mmHg with a heart rate of 75 bpm. The electrocardiogram showed normal sinus rhythm, normal axis with normal ST and T's. The Lexiscan was infused over a period of 20 seconds. A total of 0.4 mg of Lexiscan was infused. The stress phase was continued for a total of 5 minutes. Heart rate was at the end of stress phase was 104 bpm and a blood pressure of 127/84 mmHg. The EKG at the peak infusion revealed normal sinus rhythm with no significant ST-T wave changes. Sestamibi was injected 20 seconds after the Lexiscan infusion. Blood pressure at the end of recovery phase was 139/87 mmHg with a heart rate of 89 bpm. Conclusion: 1. Normal EKG response to Lexiscan infusion 2. No Lexiscan induced chest pain or cardiac arrhythmia. 3. Normal blood pressure and heart rate response. 4. Sestamibi/sestamibi perfusion scan pending; see separate report. Electronically Signed On 05-20-2024 20:03:45 ACID FILLER by Michael Gillette M.D. [email or web address]
--- NOTE | 2024-05-05 06:41 | NMCV_ITS ---
NM guanako perf SPECT r/s* [id number] Oralia Moralez Age: 38 Gender: F : 1985 Exam Date: 05/05/2024 07:23 Ordering Phys: Tiffany Valdez Technologist: LOUISE Spears Exam Location: [facility] Indications: CP STRESS TEST Please [facility] IMAGE PROTOCOL Rest/Stress 1 Lexiscan Day Radiopharmaceutical Dose (mCi) Administration Site Administered by Rest: Tc-99m 10.9 IV Nelly Alejandra, PODIATRIC TECHNICIAN Sestamibi Stress:Tc-99m 33 IV Nelly Johngle, PODIATRIC TECHNICIAN Sestamibi Rest: 05-May-2024 60 Discovery 630 Stress: 05-May-2024 30 Discovery 630 0.4mg Lexiscan. Images obtained in supine and prone position. SPECT RESULTS Technical Quality: Good Raw Data Analysis: Normal Image Corrections: No attenuation or motion correction applied Summed Stress Score: 17 Summed Rest Score: 5 Summed Difference Score: 13 PERFUSION FINDINGS Medium size area of sever reversibillity noted in mid to distal anterior wall suggestive of severe ischemia in mid LAD region FUNCTIONAL RESULTS (calculated via Gated SPECT) Stress Image LV EF (%): 67 Stress EDV (mL):92 TID: 1.2 Stress ESV (mL):30 FUNCTIONAL FINDINGS: Mid to distal anterior wall severe hypokinesis. TID ration is elevated which could be secondary to LVH howevere multivessel CAD is another consideration. IMPRESSIONS Medium size area of severe ischemia noted in the mid to distal anterior wall suggestive of possible ischemia in the LAD territory. Delaney Rudolph MD (Electronically Signed) Final Date: 07 May 2024 00:26 S
[2024-05-05 06:57] VITALS: BMI 36.0
[2024-05-05] MEDS: regadenoson 0.4 Mg/5 ml Syringe IVP (08:23)
[2024-05-05 08:35] VITALS: BP 139/87; PULSE 94
== END 2024-05-05 06:37 | disposition home or self-care (01) ==
LOC: CDL 06:37
PROVIDERS: PCP Family Medicine; Visit Provider Nurse Practitioner Family
DX: I25.118 Atherosclerotic heart disease of native coronary artery with other forms of angina pectoris (principal); R00.1 Bradycardia, unspecified; R94.39 Abnormal result of other cardiovascular function study; R06.02 Shortness of breath
CPT/HCPCS: 36415; 78452; 93017; 96374; A9500; J2785

== ENCOUNTER 2024-05-18 05:49 | Outpatient (CLI) | payer MEDICAID, SELFPAY ==
--- NOTE | 2024-05-18 06:00 | XACV_ITS ---
Ht: 170 cm Wt: 104 kg BSA: 2.26 m2 Gender: Female : 1985 Any Known Allergies: Other Exam Priority: Routine Indication(s): - Progressive angina Procedure(s): Procedure Description: Diagnostic procedure Procedure Description: Venous Graft Catheterization Procedure Description: FINN Graft Catheterization Procedure Description: Coronary Angiography Diagnostic Cath Status: Elective Diagnostic Findings * INDICATION: Worsening angina/ abnormal stress test. * Circumflex has diffuse severe disease distally. * Right Coronary Artery is totally occluded in the mid segment. * Mid to Distal Left Anterior Descending: total occlusion, PARAS: 0 flow. Proximal LAD has a patent prior stent. * Bypass grafts: FINN to LAD is patent. However after touchdown [place] LAD is totally occluded. SVG to OM is patent. SVG to RCA is occluded. * Left Main has no disease. * Coronary angiography shows right dominance. Conclusions 1. Severe [place] coronary artery CAD. FINN to LAD is patent with [place] LAD occlusion post touchdown. SVG to OM is patent. Anatomy unchanged from before. Will need aggressive medical therapy. . 2. Patient has prior CABG. Recommendations * Uptitrate antianginal therapy as tolerated. * Aggressive risk factor control. * Outpatient cardiology follow up in 2 weeks. Interventional RX Recommendation: medical therapy and/or counseling Diagnostic RX Recommendation: medical therapy and/or counseling Clinical Evaluation EBL: 5mL-10mL Procedural Details Procedure Consent Obtained. Admit Source: Out Patient. Current Diagnosis : Chest Pain. Pre-Procedure Time Out. Identified patient by full name and date of as verbalized by the patient/guarantor. Does the consent match the physician's order: Yes. Accurate & Complete Informed Consent: Yes. Inpatient/Outpatient History & Physical on Chart: Yes. If H&P is completed, is and addenduem needed: No; If yes, is the addendum complete: N/A. Visualize and Verify Site with Patient/Guarantor: N/A. Relevant Radiology Images available: N/A. The risks, benefits, and alternatives of sedation and/or procedure were discussed by physician. The patient agrees to continue. Procedure started. [facility] Clinical Fraility Score: 3: Managing Well. Marketing Communications Manager Indications: Worsening Angina; Abnormal stress test. Chest Pain Symptom Assessment: Typical Angina Symptoms. Cardiovascular Instability: No. Correct patient, site and procedure confirmed by cath team. Current diagnosis: Worsening Angina; Abnormal stress test. PERRLA. Strong, equal hand structural steel painter bilaterally. Lungs clear x 5 lobes. IV Site on Arrival: 20 gauge in the left anticubital. IV Fluids: 0.9% NaCl at KVO. 0 mL infused prior to supervisor laboratory. Pre Procedural Pulses: bilateral posterior tibial was Doppled. Pre Procedural Pulses: bilateral radial was 1+. Pre Procedural Pulses: bilateral dorsalis pedis was 2+. Oxygen started at 3liters/min via nasal canula. bilateral groins was prepped with chloroprep then draped in the usual sterile fashion. Physician notified. Physician arrived. Family updated by MD prior to the start of the procedure. Physician scrubbed in. Baseline sample Acquired. HR: 58 BPM. Immediate Pre-Procedure Time Out. Correct Patient: Yes; Correct Procedure: Yes; Correct Site: Yes; Correct Patient Position: Yes; Correct Supplies: Yes; Dried Flammable Prep: Yes; Blood Products Available: N/A;. Lidocaine 1% infiltrated to the right groin. Arterial access obtained. A 5 dominican JL4 catheter in over wire. Multiple views taken of left coronary artery. Catheter removed over the standard wire. A 5 dominican JR4 catheter in over wire. Multiple views taken of right coronary artery. Redirected to the FINN over the wire. FINN to LAD visualized. SVG's to OM visualized and patent. Catheter removed over the wire. Physician review of films. A Right femoral angiogram was performed to determine safe placement of closure device. A Mynx was successful obtaining hemostatsis at the Right Femoral artery insertion site. Mynx placed without complications. No signs or symptoms of hematoma noted. Sterile dressing applied per usual sterile fashion. lot [id number] EXP 03-17-26. Post Procedure: Pulses reassessed and unchanged. PERRLA. Strong, equal hand structural steel painter bilaterally. No VTE prophylaxis required. Medication waste: Lidocaine- 10 ml Fentanyl- 50 mcg Heparin- 1000 units. Total IV fluids: 25 mL. Fluoro: 5:07. Contrast type used: Visipaque 320 mgI/mL, 100 mL bottle. [id number]. Post-op diagnosis: Severe [place] CAD; Patent grafts to LAD AND OM. Complications: None. Estimated blood loss: 5mL-10mL. Responsiveness - Normal response to verbal stimuli; alert and oriented, PERRLA. Airway - Unaffected, no intervention required; spontaneous ventilation. Circulation: W/N/L, pulses unchanged. Nausea/Vomiting: No. Procedure completed. Patient transferred by bed to 1st floor. Vital chart was stopped. Access Site Site: Right Femoral artery Sheath Size: 6 Fr Hemostasis Method: Mynx Hemostasis Success: Successful Procedure Medications Start: 8:48 AM Stop: 8:48 AM Medication: Versed Amount: 2 mg Route: I.V. Start: 8:51 AM Stop: 8:51 AM Medication: Fentanyl Amount: 50 mcg Route: I.V. I, the attending physician, have reviewed and verified all procedure medications. Yes, all medications given per verbal order History/Risk Factors Hypertension: Yes Dyslipidemia: Yes Peripheral Arterial Disease (PAD): No Myocardial Infarction (WI): Yes Obesity: Yes Renal Disease: No Tobacco Use: Former Prior Interventions PCI: Yes CABG: Yes Valve Surgery: No Date of PCI: 11/14/2023 Report Signatures Finalized by Michael Gillette MD on 05/26/2024 12:18 PM
[2024-05-18 06:30] VITALS: BP 89/62; PULSE 77; RESP 18; TEMP 36.8; O2SAT 96; BMI 36.0
[2024-05-18] MEDS: diphenhydrAMINE 50 mg Capsule PO (06:45)
[2024-05-18 07:04] LABS: Basophils # 0.1 10^3/uL (0.0-0.1); Basophils % 0.6 %; Eosinophils # 0.2 10^3/uL (0.0-0.8); Eosinophils % 2.3 %; Hematocrit 41.8 % (36-47); Lymphocytes # 2.3 10^3/uL (0.8-4.8); Lymphocytes % 26.9 %; Mean Corpuscular HGB Conc 32.8 g/dL (30-55); Mean Corpuscular Hemoglobin 28.2 pg (27-33); Mean Corpuscular Volume 86.2 fl (85-98); Mean Platelet Volume 9.2 fL (7.4-10.4); Monocytes # 0.7 10^3/uL (0.2-0.9); Monocytes % 7.5 %; Neutrophils # 5.44 10^3/uL (1.8-7.7); Neutrophils % 62.4 %; Nucleated Red Blood Cells % 0 %; Platelet Count 329 10^3/cmm (157-399); Red Blood Count 4.85 10^6/uL (3.85-5.65); Red Cell Distribution Width 12.7 % (12.1-15.1); White Blood Count 8.71 10^3/uL (3.29-11.43)
[2024-05-18 07:17] LABS: Blood Urea Nitrogen 12 mg/dL (6-20); Calcium 9.1 mg/dL (8.5-10.5); Carbon Dioxide 24 mmol/L (22-29); Chloride 101 mmol/L (98-107); Creatinine Clr Calc Pharmacy 241.5358; Glomerular Filtration Rate 180.6 mL/min (90-130); Glucose 201 mg/dL (65-115); Osmolality Calculated 287 mOsm/kg (285-295); Sodium 136 mmol/L (136-145)
--- NOTE | 2024-05-18 08:47 | W.PM.OPSFHP ---
Same Day Surgery H&P Indication for Procedure/HPI DATE OF PROCEDURE: May 18, 2024 CHIEF COMPLAINT/INDICATIONFOR SURGICAL PROCEDURE: CCS class 3 angina/abnormal stress test PREOP DIAGNOSIS: Worsening angina/abnormal stress test PLANNED PROCEDURE: Operation Date: 05/18/24 07:00 Proposed Procedures p Cardiac Catheterization - [facility](Bilateral) - Michael Gillette M.D 38-year-old woman with past medical history of CABG has been having worsening chest pain symptoms. Stress test is abnormal. Plan for coronary angiogram with possible PCI. Medications/Allergies* Home Medications Medication Instructions Recorded Confirmed Type empagliflozin 10 mg tablet 10 mg PO QAM 12/04/23 05/13/24 History (Jardiance) spironolactone 50 mg tablet 50 mg PO DAILY 12/04/23 05/13/24 History Allergies/Adverse Reactions Allergy/AdvReac Type Severity Reaction Status Date / Time ranolazine [From Ranexa] Allergy ADR-Blurry Verified 05/13/24 13:49 Vision Current Medications: Generic Name Dose Route Start Last Admin Trade Name Freq PRN Reason Stop Dose Admin Sodium Chloride 1,000 mls @ 50 mls/hr 05/18/24 06:00 05/18/24 07:11 Sodium Chloride 0.9% IV 05/19/24 01:59 Not Given .Q20H ONE Pertinent History/Comorbid Conditions* Medical History (Updated 05/11/24 @ 13:54 by RIK Blackwell) Abnormal cardiovascular stress test Bed bug bite Hypertension Chest pain CAD (coronary artery disease) STEMI (ST elevation myocardial infarction) Family history of premature CAD Nicotine dependence, cigarettes, with unspecified nicotine-induced disorders Osteoarthritis of left knee High cholesterol delivery delivered Diabetes type 2, uncontrolled Hypercholesteremia Family history of early CAD Surgical History (Updated 07/02/23 @ 00:00 by SHERINE Ortez) Hx of CABG History of delivery x 2 H/O tubal ligation Family History (Updated 08/15/21 @ 14:51 by Maya Boogie LPN) Father Diabetes Father Mother Arthritis Mother Heart disease Father Mother Emphysema lung Mother Kidney failure Mother COPD (chronic obstructive pulmonary disease) Mother Social History Smoking and tobacco/nicotine status: former use of tobacco/nicotine Quit status (tobacco/nicotine): has quit using Year quit tobacco: 10/16/2022 Former quit date comment: 1.5ppd X 27 years Second hand smoke exposure: No Substance/Drug Use: never Adopted: No Caregiver/support person: No Lives independently: Yes Housing: House Marital status: Number of children: 2 Highest education level completed: 9th Grade service: No Pertinent Exam Findings alert, oriented x 3, clear to auscultation bilaterally and regular rate & rhythm Conscious Sedation Assessment PATIENT ASSESSED PRIOR TO SEDATION, WITH NO CHANGE NOTED: Yes AIRWAY EVAL/ANESTHESIA PLAN: normal airway, ASA III, Local Anesthesia, Risks, benefits & alternatives of sedation and/or procedure discussed and Patient agrees to continue as planned ADDITIONAL INFORMATION: Moderate sedation Recommendations Surgery/Procedure today (Left heart cath with possible PCI) Coding Level of Care Code Acute Code for Chg Fwd
--- NOTE | 2024-05-18 16:30 | PC.NURSE ---
Discharge Note Patient discharged to home via pov accompanied by family. Discharge instructions reviewed with patient and/or data entry representative. Mobile pharmacy medications and/or prescriptions provided. Belongings/home medications returned.
== END 2024-05-18 16:31 | disposition home or self-care (01) ==
LOC: CCL 05:51 → CSU 13:02
PROVIDERS: PCP Family Medicine; Visit Provider Internal Medicine
DX: R94.39 Abnormal result of other cardiovascular function study (principal); Z95.1 Presence of aortocoronary bypass graft; Z87.891 Personal history of nicotine dependence; I10 Essential (primary) hypertension; I25.10 Atherosclerotic heart disease of native coronary artery without angina pectoris; I25.2 Old myocardial infarction; Z82.49 Family history of ischemic heart disease and other diseases of the circulatory system; E78.00 Pure hypercholesterolemia, unspecified
CPT/HCPCS: 36415; 80048; 85025; 93455; 96365; 99152; C1760; C1769; C1887; C1894; G0269; J1644; J2250; J3010; J7030; Q0163; Q9967

== ENCOUNTER → 2024-05-25 13:41 | Outpatient (BNVA) | payer MEDICAID, SELFPAY | PROVIDERS: PCP Family Medicine; Visit Provider Nurse Practitioner Family | DX: I25.10 Atherosclerotic heart disease of native coronary artery without angina pectoris (principal); I25.118 Atherosclerotic heart disease of native coronary artery with other forms of angina pectoris; E78.00 Pure hypercholesterolemia, unspecified; E11.65 Type 2 diabetes mellitus with hyperglycemia; I10 Essential (primary) hypertension; I25.2 Old myocardial infarction | CPT/HCPCS: 36415; 80053; 80061; 82044; 83036; 99214 ==

== ENCOUNTER → 2024-08-10 13:10 | Outpatient (BNVA) | payer MEDICAID, SELFPAY | PROVIDERS: PCP Family Medicine; Visit Provider Internal Medicine | DX: I25.118 Atherosclerotic heart disease of native coronary artery with other forms of angina pectoris (principal); I10 Essential (primary) hypertension; E78.00 Pure hypercholesterolemia, unspecified; Z87.891 Personal history of nicotine dependence; Z95.1 Presence of aortocoronary bypass graft | CPT/HCPCS: 99214 ==

== ENCOUNTER → 2024-08-14 10:40 | Outpatient (BNVA) | payer MEDICAID, SELFPAY | PROVIDERS: PCP Family Medicine; Visit Provider Internal Medicine | DX: E11.65 Type 2 diabetes mellitus with hyperglycemia (principal); Z82.49 Family history of ischemic heart disease and other diseases of the circulatory system; E78.00 Pure hypercholesterolemia, unspecified; I25.118 Atherosclerotic heart disease of native coronary artery with other forms of angina pectoris | CPT/HCPCS: 99214 ==

== ENCOUNTER → 2025-02-09 14:13 | Outpatient (BNVA) | payer MEDICAID, SELFPAY | PROVIDERS: PCP Family Medicine; Visit Provider Internal Medicine | DX: I25.10 Atherosclerotic heart disease of native coronary artery without angina pectoris (principal); I10 Essential (primary) hypertension; E78.00 Pure hypercholesterolemia, unspecified; Z79.02 Long term (current) use of antithrombotics/antiplatelets; Z79.82 Long term (current) use of aspirin; Z95.1 Presence of aortocoronary bypass graft; Z87.891 Personal history of nicotine dependence; I25.2 Old myocardial infarction; I25.118 Atherosclerotic heart disease of native coronary artery with other forms of angina pectoris; E11.65 Type 2 diabetes mellitus with hyperglycemia; Z79.4 Long term (current) use of insulin | CPT/HCPCS: 99214 ==

== ENCOUNTER → 2025-03-10 10:25 | Outpatient (BNVA) | payer MEDICAID, SELFPAY | PROVIDERS: PCP Family Medicine; Visit Provider Internal Medicine | DX: E11.65 Type 2 diabetes mellitus with hyperglycemia (principal) | CPT/HCPCS: 36415; 80053; 80061; 82044; 82947; 83036; 84681; 86337; 86341 ==

== ENCOUNTER 2025-03-14 01:39 | Emergency (ER) | payer MEDICAID, SELFPAY ==
--- OUTSIDE RECORDS SUMMARY | 2025-03-14 01:43 | XMS_ITS | Data Portability ---
Author Organization IKE Jose Valadez [facility] Address [address] [address] Care Team Providers Care Netezza Architect Name Role Phone ELLIE CLARK Primary Care Provider [phone] Assessment No assessment recorded. Plan of Treatment Reminders Order Date Submit Date Provider Last Modified By Organization Details Last Modified Time Details Appointments None recorded. Lab CMP, serum or plasma 2023 [facility], [address], [facility], [place], [address], 15:43:12 lipid panel, blood 2023 [facility], [address], [facility] 1, [place], [address], 15:43:15 CBC 2023 [facility], [address], [facility] 1, [place], [address], 4 15:16:01 microalbumi n/creatinin e, mass ratio, urine 2023 DAVID [facility], [address] [place] [address] 248, [address] [place], [address], 4 10:41:45 HbA1c (hemoglobin A1c), blood 2023 024 [facility] ([facility]), [address] [place], [address], 4 15:19:53 Referral None recorded. Procedures None recorded. Surgeries None recorded. Imaging None recorded. Medication Orders aspirin 81 mg tablet,filomena yed release 2024 025 [id number], [address], [facility], [place], [address], 5 11:35:17 buspirone 10 mg tablet 2024 025 [id number], [address], [facility] [address], [address], 5 11:41:17 metoclopram bryson 10 mg tablet 2024 025 [id number], [address], [facility] [address], [address], 5 11:39:21 omeprazole 40 mg capsule,del ayed release 2023 024 [id number], [address], [facility], [place], [address], 4 14:33:51 buspirone 10 mg tablet 2023 024 [id number], [address], [address], [address], 4 14:30:30 sucralfate 1 gram tablet 2023 024 [id number], [address], [address], [place], [address], 4 12:00:35 Patient TargetsNo targets recorded. Patient InstructionsNo instructions recorded. Reason for Referral None Reported. Results Created Date Observation Date Name Description Value Unit Range Abnormal Flag Note LastModifiedBy Organization Detail LastModifiedTime 03/25/20 24 03/25/2024 CBC WBC 9.8 x10 4.0-10 .5 Not Available [facility] [address], [place], [address], 03/25/2024 15:16:01 03/25/2003/25/2024 CBC RBC 5.07 x10 3.50-5 .50 Not Available [facility] [address], [place], [address], 03/25/2024 15:16:01 03/25/2003/25/2024 CBC HGB 14.4 g/dL 12.0-1 6.0 Not Available [facility] [address], [place], [address], 03/25/2024 15:16:01 03/25/20 24 03/25/2024 CBC HCT 42.7 % 37.0-4 7.0 Not Available [facility] [address], [place], [address], 03/25/2024 15:16:01 03/25/20 24 03/25/2024 CBC MCV 84.3 fL 80.0-9 9.9 Not Available [facility] [address], [place], [address], 03/25/2024 15:16:01 03/25/20 24 03/25/2024 CBC MCH 28.5 pg 27.0-3 2.0 Not Available [facility] [address], [place], [address], 03/25/2024 15:16:01 03/25/20 24 03/25/2024 CBC MCHC 33.8 g/dL 32.0-3 6.0 Not Available [facility] [address] 1, [place], [address], 03/25/2024 15:16:01 03/25/2003/25/2024 CBC RDW 14.2 % 11.5-1 4.5 Not Available [facility] [address] [facility], [place], [address], 03/25/2024 15:16:01 03/25/2003/25/2024 CBC plt 313.4 x10 140.0- 451.0 Not Available [facility] [address] [facility], [place], [address], 03/25/2024 15:16:01 03/25/2003/25/2024 CBC lymphocytes % 23.1 % 20.0-5 0.0 Not Available [facility] [address] [facility], [place], [address], 03/25/2024 15:16:01 03/25/20 24 03/25/2024 CBC granulcytes % 69.9 % 30.0-7 0.0 Not Available [facility] [address] [facility], [place], [address], 03/25/2024 15:16:01 03/25/20 24 03/25/2024 CBC monocytes % 5.7 % 2.0-16 .0 Not Available [facility] [address] [facility], [place], [address], 03/25/2024 15:16:01 03/25/20 24 03/25/2024 CBC granulcytes# 6.8 x10 Not Tierra ilable [facility] [address] 1, [place], [address], 03/25/2024 15:16:01 03/25/20 24 03/25/2024 CBC lymphocytes # 2.3 x10 Not Available [facility] [address] 1, [place], [address], 03/25/2024 15:16:01 03/25/20 24 03/25/2024 CBC monocytes # 0.6 x10 Not Avai lable [facility] [address] [facility] 1, [place], [address], 03/25/2024 15:16:01 03/25/20 24 03/25/2024 CMP (FEMA LE) glucose 143.0 mg/dL 60.0-9 9.0 high Not Available [facility] [address] [facility] [facility], [place], [address], 03/25/2024 15:43:12 03/25/20 24 03/25/2024 CMP (FEMA LE) BUN (blood urea nitrogen) 14.0 mg/dL 10.0-2 6.0 Not Available [facility] [address] [facility] 1, [place], [address], 03/25/2024 15:43:12 03/25/20 24 03/25/2024 CMP (FEMA LE) creatinine (serum) 0.6 mg/dL 0.4-1. 5 Not Available [facility] [address] [facility], [place], [address], 03/25/2024 15:43:12 03/25/20 24 03/25/2024 CMP (FEMA LE) BUN/creatini ne ratio 24.14 ratio Not Available [facility] [address] [facility] 1, [place], [address], 03/25/2024 15:43:12 03/25/20 24 03/25/2024 CMP (FEMA LE) eGFR calculated 125.0 Not Available [facility] [address] 1, [place], [address], 03/25/2024 15:43:12 03/25/20 24 03/25/2024 CMP (FEMA LE) total protein 8.0 g/dL 6.0-8. 5 Not Available [facility] [address] 1, [place], [address], 03/25/2024 15:43:12 03/25/20 24 03/25/2024 CMP (FEMA LE) total bilirubin 0.5 mg/dL 0.2-1. 3 Not Available [facility] [address] [facility] 1, [place], [address], 03/25/2024 15:43:12 03/25/2003/25/2024 CMP (FEMA LE) albumin 4.8 g/dL 3.5-5. 5 Not Available [facility] [address] 1, [place], [address], 03/25/2024 15:43:12 03/25/2003/25/2024 CMP (FEMA LE) globulin 3.2 calc Not Available [facility] [address] 1, [place], [address], 03/25/2024 15:43:12 03/25/20 24 03/25/2024 CMP (FEMA LE) AST (SGOT) 44.0 U/L 0.0-46 .0 Not Available [facility] [address] [facility] 1, [place], [address], 03/25/2024 15:43:12 03/25/2003/25/2024 CMP (FEMA LE) altv (SGPT) 26.0 U/L 13.0-6 9.0 normal Not Available [facility] [address] [facility] [facility] 1, [place], [address], 03/25/2024 15:43:12 03/25/20 24 03/25/2024 CMP (FEMA LE) A/G ratio 1.5 ratio Not Available [facility] [address] [facility], [place], [address], 03/25/2024 15:43:12 03/25/20 24 03/25/2024 CMP (FEMA LE) ALP phos 66.0 U/L 30.0-1 40.0 normal Not Available [facility] [address] [facility], [place], [address], 03/25/2024 15:43:12 03/25/2003/25/2024 CMP (FEMA LE) calcium 10.0 mg/dL 8.4-10 .5 Not Available [facility] [address] [facility], [place], [address], 03/25/2024 15:43:12 03/25/20 24 03/25/2024 CMP (FEMA LE) sodium 140.0 mmol/ L 136.0- 145.0 Not Available [facility] [address] [facility] 1, [place], [address], 03/25/2024 15:43:12 03/25/20 24 03/25/2024 CMP (FEMA LE) potassium 3.8 mmol/ L 3.5-5. 1 Not Available [facility] [address] [facility] 1, [place], [address], 03/25/2024 15:43:12 03/25/20 24 03/25/2024 CMP (FEMA LE) chloride 105.0 mmol/ L 98.0-1 10.0 normal Not Available [facility] [address] [facility], [place], [address], 03/25/2024 15:43:12 03/25/20 24 03/25/2024 CMP (FEMA LE) C02 25.0 mmol/ L 22.0-3 1.0 Not Available [facility] [address], [place], [address], 03/25/2024 15:43:12 03/25/2003/25/2024 CMP (FEMA LE) anion gap 10.0 calc Not Available [facility] [address] [facility] 1, [place], [address], 03/25/2024 15:43:12 03/25/2003/25/2024 CMP (FEMA LE) osmolality 291.8 calc Not Available [facility] [address] [facility] 1, [place], [address], 03/25/2024 15:43:12 03/25/20 24 03/25/2024 LIPID PROFI LE (FEMA LE) cholesterol 133.0 mg/dL 0.0-20 0.0 Not Available [facility] [address] [facility] 1, [place], [address], 03/25/2024 15:43:15 03/25/20 24 03/25/2024 LIPID PROFI LE (FEMA LE) trig 193.0 mg/dL 0.0-15 0.0 high Not Available [facility] [address] 1, [place], [address], 03/25/2024 15:43:15 03/25/20 24 03/25/2024 LIPID PROFI LE (FEMA LE) HDL - direct 26.0 mg/dL >40.0 low Not Available [facility] [address] 1, [place], [address], 03/25/2024 15:43:15 03/25/2003/25/2024 LIPID PROFI LE (FEMA LE) VLDL - direct 38.6 mg/dL Not Available [facility] [address] [facility] 1, [place], [address], 03/25/2024 15:43:15 03/25/20 24 03/25/2024 LIPID PROFI LE (FEMA LE) LDL - direct 68.4 mg/dL 0.0-13 0.0 Not Available [facility] [address] 1, [place], [address], 03/25/2024 15:43:15 03/25/20 24 03/27/2024 ALBUM IN, RANDO M URINE W/CRE ATINI NE creatinine, random urine 74 mg/dL 20-275 normal Not Available [place] [address] [place], [address], 03/27/2024 10:41:45 03/25/20 24 03/27/2024 ALBUM IN, RANDO M URINE W/CRE ATINI NE albumin, urine 0.6 mg/dL see note: normal Refer ence Range : Refer ence Range Not estab lishe d Not Available [address] [address] [place], [address], 03/27/2024 10:41:45 03/25/20 24 03/27/2024 ALBUM IN, RANDO M URINE W/CRE ATINI NE albumin/crea tinine ratio, random urine 8 mg/g_ creat <30 normal The ADA defin es abnor malit ies in album in excre tion as follo ws: Album inuri a Categ ory Resul t (mg/g creat inine ) Jordyn l to Mildl y incre ased <30 Moder ately incre ased 30-29 9 Sever marlen incre ased > OR = 300 The ADA recom mends that at least two of three speci mens colle cted withi n a 3-6 month perio d be abnor mal befor e consi susan g a patie nt to be withi n a diagn ostic categ ory. Not Available [facility] [address] [place], [address], 03/27/2024 10:41:45 03/25/20 24 03/25/2024 HbA1c (hemo globi n A1c), blood HbA1c 6.8 Not Available [facility] ([facility]) [address] [place], [address], 03/25/2024 14:34:52 Result Notes None recorded. Problems Name Problem SNOMED Code Status Onset Date Resolution Date Notes Provider Name and Address Organization Details Recorded Time Anxiety 05926691 Active 2023 PEBBLES castelan [facility] 5 20:56:13 Gastroesophage al reflux disease 107732398 Active 2023 PEBBLES castelan [facility] 20:56:16 Peptic ulcer 52098587 Active 2023 PEBBLES castelan [facility] 20:56:32 Multi vessel coronary artery disease 808689819 Active 2023 PEBBLES castelan [facility] 5 20:56:20 Gastroparesis due to diabetes mellitus 181726246 Active 2024 Ellie Clark MD [address] [place], [address], [facility] 5 11:37:21 Problem Notes None recorded. Procedures Surgical History Date Name Laterality Status Provider Name and Address Organization Details Recorded Time 10/28/19 23 procedure on heart completed PEBBLES Aguilera [facility] 03/25/2024 14:04:15 cholecystectomy completed PEBBLES DANIELSON [facility] 03/25/2024 14:13:01 Tubal Ligation completed PEBBLES DANIELSON [facility] 03/25/2024 14:13:24 Imaging Results None recorded. Procedure Notes None recorded. Medical Equipment None Reported. Allergies Allergen ID Allergen Name Allergen Category Reaction Reaction Severity Criticality Documentation Date Start Date Code Code System Note Provider Name and Address Organization Details Recorded Time 79939 ranolazin e medicatio n Not available Not available Not available 03/25/2024 93430 RxNorm ABBIWILL castelanIKE [facility] 4 14:03:46 Medications Name Sig Start Date Stop Date Status Note LastModified by Organization Details LastModified Time buspirone 5 mg tablet TAKE 1 TABLET BY MOUTH THREE TIMES DAILY NEEDED FOR ANXIETY 03/25 completed Not Available Not Available Not Available atorvastati n 80 mg tablet TAKE 1 TABLET BY MOUTH EVERY DAY active Not Available Not Available No t Available carvedilol 6.25 mg tablet TAKE 1 TABLET BY MOUTH TWICE A DAY active Not Available Not Available No t Available fluconazole 150 mg tablet TAKE 1 TABLET BY MOUTH EVERY 3 DAYS FOR 2 DOSES. 05/25 completed Not Available Not Available Not Available hydrocodone 5 mg-acetamin ophen 325 mg tablet TAKE 1 TABLET BY MOUTH EVERY 6 HOURS NEEDED FOR PAIN 03/25 completed Not Available Not Available Not Available meloxicam 15 mg tablet TAKE 1 TABLET BY MOUTH EVERY DAY 03/25 completed Not Available Not Available Not Available sucralfate 1 gram tablet TAKE 1 TABLET 3 TIMES A DAY BY ORAL ROUTE BEFORE MEAL(S). 05/25 completed Not Available Not Available Not Available famotidine 40 mg tablet TAKE 1 TABLET BY MOUTH EVERY DAY 03/25 completed Not Available Not Available Not Available isosorbide mononitrate ER 30 mg tablet,exte nded release 24 hr TAKE 1 TABLET BY MOUTH EVERY DAY active Not Available Not Available No t Available clopidogrel 75 mg tablet TAKE 1 TABLET BY MOUTH EVERY DAY 2024 active Not Available Not Available Not Avai lable hydrocodone 10 mg-acetamin ophen 325 mg tablet TAKE 1 TABLET BY MOUTH EVERY 6 HOURS NEEDED FOR PAIN 03/25 completed Not Available Not Available Not Available omeprazole 40 mg capsule,del ayed release TAKE 1 CAPSULE BY MOUTH EVERY DAY 2024 active Not Available Not Available Not Avai lable aspirin 81 mg tablet,filomena yed release TAKE 1 TABLET BY MOUTH EVERY DAY active Not Available Not Available No t Available ondansetron 8 mg disintegrat ing tablet TAKE 1 TABLET BY MOUTH EVERY 8 HOURS NEEDED FOR NAUSEA AND VOMITING 05/25 completed Not Available Not Available Not Available isosorbide mononitrate ER 60 mg tablet,exte nded release 24 hr TAKE 1 TABLET BY MOUTH EVERY DAY active Not Available Not Available No t Available famotidine 20 mg tablet TAKE 1 TABLET BY MOUTH EVERY DAY 03/25 completed Not Available Not Available Not Available OneTouch Ultra Test strips CHECK SUGAR 4-6 TIMES DAILY active Not Available Not Available No t Available pantoprazol e 40 mg tablet,filomena yed release TAKE 1 TABLET BY MOUTH TWICE A DAY FOR 10 DAYS THEN ONCE DAILY 03/25 completed Not Available Not Available Not Available buspirone 10 mg tablet Take 2 tablets 3 times a day by oral route for 90 days. 2024 active Not Available Not Available Not Avai lable nitroglycer in 0.[address] 1 TABLET UNDER TONGUE EVERY 5 MINUTES NEEDED FOR CHEST PAIN MAX 3 DOSES PER EPISODE active Not Available Not Available No t Available docusate sodium 100 mg capsule TAKE 1 CAPSULE BY MOUTH TWICE A DAY 03/25 completed Not Available Not Available Not Available omeprazole 20 mg capsule,del ayed release TAKE 1 CAPSULE BY MOUTH EVERY DAY 05/25 completed Not Available Not Available Not Available polyethylen e glycol 3350 17 gram/dose oral powder TAKE 1/4 CAPFUL WITH 8OZ OF LIQUID TWICE DAILY 05/25 completed Not Available Not Available Not Available ondansetron 4 mg disintegrat ing tablet TAKE 1 TABLET BY MOUTH EVERY 6 HOURS NEEDED FOR NAUSEA AND VOMITING 03/25 completed Not Available Not Available Not Available spironolact one 50 mg tablet TAKE 1 TABLET BY MOUTH EVERY DAY active Not Available Not Available No t Available metoclopram bryson 10 mg tablet TAKE 1 TABLET 3 TIMES A DAY BY ORAL ROUTE. active Not Available Not Available No t Available amoxicillin 500 mg-potassiu m clavulanate 125 mg tablet TAKE 1 TABLET BY MOUTH TWICE A DAY 03/25 completed Not Available Not Available Not Available insulin lispro (U-100) 100 unit/mL subcutaneou s pen MAX DAILY DOSE: 45 UNITS. USE 3 TIMES A DAY PER SLIDING SCALE SUBCUTANE OUSLY active Not Available Not Available No t Available insulin aspart (U-100) 100 unit/mL (3 mL) subcutaneou s pen INJECT DIRECTED SUBCUTANE OUSLY 3 TIMES DAILY AFTER MEALS BASED ON SLIDING SCALE MAX 45 UNITS/DAY active Not Available Not Available No t Available ranolazine ER 500 mg tablet,exte nded release,12 hr TAKE 1 TABLET BY MOUTH TWICE A DAY 03/25 completed Not Available Not Available Not Available Lantus Solostar U-100 Insulin 100 unit/mL (3 mL) subcutaneou s pen INJECT 50 UNITS SUBCUTANE OUSLY DAILY active Not Available Not Available No t Available Jardiance 10 mg tablet TAKE 1 TABLET BY MOUTH IN THE MORNING active Not Available Not Available No t Available TechLITE Pen Needle 31 gauge x 5/16 USE DIRECTED active Not Available Not Available No t Available Pentips Pen Needle 31 gauge x 1/4 USE DIRECTED active Not Available Not Available No t Available TechLITE Pen Needle 31 gauge x 3/16 USE DIRECTED active Not Available Not Available No t Available Dexcom G6 Transmitter device CHANGE EVERY 90 DAYS active Not Available Not Available No t Available OneTouch Ultra2 Meter CHECK SUGAR 4-6 TIMES A DAY active Not Available Not Available No t Available OneTouch Delica Plus Lancet 30 gauge DIRECTED 4-6 TIMES DAILY active Not Available Not Available No t Available Dexcom G7 Sensor device DIRECTED active Not Available Not Available No t Available Vitals Date Recorded Body height Body mass index (BMI) Body weight Body temperature Oxygen saturation Oxygen saturation in Arterial blood by Pulse oximetry Heart rate Systolic And Diastolic Provider Name and Address Organization Details Last Updated DateTime 5 170.18 cm 38.9 kg/m2 163203. 71 g 97.3 [degF] 99 % 99 % 82 /min 110/70 mm[Hg] [facility] 11:21:51 Date Recorded Body weight Body mass index (BMI) Body height Body temperature Oxygen saturation Oxygen saturation in Arterial blood by Pulse oximetry Heart rate Systolic And Diastolic Provider Name and Address Organization Details Last Updated DateTime 4 829629. 64 g 36.3 kg/m2 170.18 cm 97.3 [degF] 97 % 97 % 98 /min 124/80 mm[Hg] MCKALE JAGJIT [facility] 4 14:15:03 Date Recorded Body height Body mass index (BMI) Body weight Oxygen saturation Oxygen saturation in Arterial blood by Pulse oximetry Respiratory rate Body temperature Heart rate Systolic And Diastolic Provider Name and Address Organization Details Last Updated DateTime 4 170.18 cm 36.6 kg/m2 631866. 61 g 98 % 98 % 18 /min 98.3 [degF] 84 /min 100/68 mm[Hg] Jenna Nino [facility] 4 11:56:48 Social History Question Answer Notes LastModified by Vurb Details LastModified Time Tobacco Smoking Status Former Smoker [facility]BLES [facility] 03/25/2024 14:12:23 What Is Your Level Of Caffeine Consumption? Moderate Information not available 03/25/2024 What Type Of Diet Are You Following? REGULAR Information not available 03/25/2024 When Did You Quit Smoking? 1-5yearssince lastcigarette Information not available 03/25/2024 What Is Your Relationship Status? Information not available 03/25/2024 Do You Have Any Dietary Restrictions? No Information not available 03/25/2024 Sex: Unknown Functional Status Question Answer Note LastModified by [employer] Details LastModified Time Do you use any illicit or recreational drugs? No Information not available 03/25/2024 What is your level of alcohol consumption? None Information not available 03/25/2024 Are you currently employed? No Information not available 03/25/2024 Are you able to walk independently without assistance or assistive devices? YESWOREST Information not available 03/25/2024 Are you able to care for yourself independently? Yes Information not available 03/25/2024 Mental Status None recorded. Family History Relationship Description Onset Age of this Age Resolved Age Notes LastModified by Organization Details LastModified Time Sister Heart disease 29 32 [place] Not available 2023 14:10:41 Father Heart disease in 2017 [place] Not available 03/25/2024 14:11:20 Mother Heart disease am[place] Not available 2023 14:10:59 Medical History No medical history recorded. Gynecological HistoryNo gynecological history recorded. Obstetrics History GPAL:G 2 P 0 0 0 0 Past Encounters Encounter ID Performer Location Encounter Start Date Encounter Closed Date Diagnosis/Indication Diagnosis SNOMED-CT Code Diagnosis ICD10 Code Diagnosis IMO Codes Diagnosis Note [id number] Ellie Clark MD [facility] [place] ([facility]) [address] [place] [id number] 03/25/2024 13:55:17 03/25/2024 14:41:13 Anxiety 39251311 F41.9 Refill provided for his buspirone. Gastroesop hageal reflux disease 383219196 K21.9 Peptic ulcer 72791081 K2 7.9 Concerned about peptic ulcer disease given her NSAID use and increasing pain and morning nausea. Will increase the dose of her omeprazole to 40 mg as well as start sucralfate . Also recommend the patient's stop meloxicam at this time. Multi vess el coronary artery disease 571758026 I25.10 Continue to follow with Dr. Gillette. Patient denies any active chest pain but has been fatigued. Type 2 maría betes mellitus 59443927 Z79.4 Patient's blood sugar has been managed well on current medication s. No changes at this time, however we will obtain an A1c today. Will also check routine labs and lipid panel. [id number] Ellie Clark MD [facility] ([facility]) [address] [place] [phone] 05/25/2024 11:35:55 05/25/2024 12:51:21 Multi vessel coronary artery disease 964830058 I25.10 Patient has done well since her cardiac cath. The patient has appointmen t with Dr. Gillette today. Type 2 maría betes mellitus 06811468 Z79.[address] Workman about diabetic supplies and medication s. If continued trouble is noted then refills will provided by us to help the patient maintain control. [id number] Ellie Clark MD [facility] ([facility]) [address] [place] [phone] 10/23/2024 10:58:36 10/23/2024 13:15:14 Anxiety [id number] F41.9 Will increase her buspirone to 3 times daily and see if this improves her anxiety throughout the day. Multi vess el coronary artery disease [id number] I25.10 Continue aspirin and cardiology follow-up. Gastropare sis due to diabetes mellitus [id number] E11.43 K31.84 [id number] Concerned that the patient may have diabetic gastropare sis. This was discussed at previous appointmen ts but had not been further addressed since. Will start the patient on Reglan and see if this improves her symptoms. Health Concerns Section Related Observation LastModified by Organization Detai ls LastModified Time None Recorded Concern Status LastModified by Organization Details LastModified Time None Recorded Advance Directives Directive None Recorded Payers Insurance Date Sequence Insurance Name Policy Number Policy Dial Covered Member ID Dial Member ID Guarantor Name 10/20/2024 1 [place] Oralia Moralez [id number] Oralia Moralez 10/20/2024 [place] [facility] ([facility]) Oralia Moralez [id number] Oralia Moralez Notes Date Note Type Note Provider Name and Address Organization Details Recorded Time 03/25/2024 text/html This is a 38-year-old female that comes in today to establish care. The patient has multiple chronic medical issues. The patient has significant cardiac disease and has had open heart surgery due to myocardial infarction. The patient also has a history of type 2 diabetes that historically has been well-controlled on current medications. Patient has noticed increasing upper abdominal pain and nausea that is worse in the morning. Patient states that food also seems to make her pain worse. The patient is currently taking meloxicam daily. Patient needs a refill on her buspirone for her anxiety. Patient states that the medication is working well for her. Patient sees Dr. Castaneda with cardiology. Patient states that she is due for routine lab work as well as her A1c. Elile Clark MD [address] [place] [address], [phone], [facility] 03/26/2024 14:56:42 05/25/2024 text/html ROS as noted in the HPI This is a 38-year-old female that comes in today for hospital follow-up. The patient recently underwent cardiac catheterization. The patient was having shortness of breath and chest pain with activity. Patient states that no intervention was required for medical management. Patient reports the puncture site has healed well without any concerns. Patient states that she is struggling getting diabetic supplies from Dr. Workman but overall her sugars are doing well. Ellie Clark MD [address] [place] [address], [phone], [facility] 05/25/2024 12:34:35 10/23/2024 text/html Pt is unsure what she is here for today. States that she is sick every day d/t her heart.States that her insulin isn't working well for her but Dr. Workman is taking care of her Diabetes. The patient reports that she needs a refill on medications. Patient states the reason why she does not feel well is persistent nausea. Patient also has been struggling with anxiety. Ellie Clark MD [address] [place] [address], [phone], [facility] 10/25/2024 20:28:11 OBGyn Episode No OBEpisode recorded.
[2025-03-14 01:53] VITALS: BP 177/93; PULSE 69; RESP 18; TEMP 36.6; O2SAT 100; BMI 39.1
--- NOTE | 2025-03-14 01:55 | XRR_ITS ---
PROCEDURE INFORMATION: Exam: XR Chest Exam date and time: 03/14/2025 1:55 AM Age: 39 years old Clinical indication: Chest pressure; Prior surgery; Surgery date: 6+ months; Surgery type: Cabg; C/O chest pain; Additional info: Cp TECHNIQUE: Imaging protocol: Radiologic exam of the chest. Views: 1 view. COMPARISON: CR XR chest 1V portable [id number] 04/08/2024 10:34 PM FINDINGS: Tubes, catheters and devices: Anterior chest surgery with sternal wires and mediastinal clips. Lungs: Unremarkable. No consolidation. Pleural spaces: Unremarkable. No pleural effusion. No pneumothorax. Heart/Mediastinum: Unremarkable. No cardiomegaly. Bones/joints: No acute osseous abnormality. Other findings: No acute intrathoracic abnormality. XR/XR chest 1V portable [id number] IMPRESSION: No acute intrathoracic abnormality.
[2025-03-14 02:05] VITALS: BP 154/92; PULSE 71; RESP 18; O2SAT 99
[2025-03-14 03:03] LABS: INR 0.91 (0.8-1.2); Prothrombin Time 12.90 SECONDS (12.1-14.9)
[2025-03-14 03:04] LABS: Partial Thromboplastin Time 24.7 SECONDS (23.9-36.7)
[2025-03-14 03:13] LABS: Troponin(5th) Baseline < 6 ng/L (0-10)
[2025-03-14 03:14] LABS: Hematocrit 43.0 % (36-47); Hemoglobin 14.10 g/dL (11.27-16.99); Mean Corpuscular HGB Conc 32.8 g/dL (30-55); Mean Corpuscular Hemoglobin 27.6 pg (27-33); Mean Corpuscular Volume 84.1 fl (85-98); Nucleated Red Blood Cells % 0 %; Platelet Count 336 10^3/cmm (157-399); Red Blood Count 5.11 10^6/uL (3.85-5.65); White Blood Count 8.45 10^3/uL (3.29-11.43)
[2025-03-14 03:17] LABS: Alanine Aminotransferase 22 U/L (0-33); Albumin Level 4.2 g/dL (3.5-5.2); Alkaline Phosphatase 87 U/L (35-105); Aspartate Amino Transferase 17 U/L (0-32); Blood Urea Nitrogen 6 mg/dL (6-20); Calcium 9.4 mg/dL (8.5-10.5); Carbon Dioxide 22 mmol/L (22-29); Chloride 97 mmol/L (98-107); Globulin 3.0 g/dL (1.3-4.6); Glucose 173 mg/dL (65-115); NT Pro B Type Natriuretic Pept 48 pg/mL (0-125); Osmolality Calculated 282 mOsm/kg (285-295); Sodium 135 mmol/L (136-145); Total Protein 7.2 g/dL (6.6-8.7)
[2025-03-14 03:19] LABS: Creatinine Clr Calc Pharmacy 250.2447
[2025-03-14 03:20] LABS: Anion Gap 19.7 (5-19); Potassium 3.7 mmol/L (3.5-5.1)
--- NOTE | 2025-03-14 03:31 | W.ED.CHESTPA ---
HPI - Chest Pain General: Chief Complaint: Chest Pain Stated Complaint: Chest pain and numbness Time Seen by Provider: 03/14/25 02:20 History of Present Illness: Patient is a 39-year-old female with a history of coronary artery disease status post CABG who presents with acute onset chest pain. The pain began approximately one hour prior to arrival while the patient was in bed and was significant enough to wake her from sleep. She describes the pain as stinging or sharp in nature, localized to the right side of her chest. Patient also reports intermittent numbness. She denies pain with breathing, but mentions having experienced shortness of breath previously, though not at the time of examination. Patient denies fever, cough, or increased leg swelling. Her last cardiac evaluation appears to have been a stress test within the past year, though she is uncertain about the exact timing. She denies having had an angiogram within the past year. Related Data Home Medications ?Medication ?Instructions ?Recorded ?Confirmed spironolactone 50 mg tablet 50 mg PO DAILY 12/04/23 03/10/25 Previous Rx's ?Medication ?Instructions ?Recorded blood-glucose,mental health program specialist,cont #1 ea 11/22/23 ([employer] G7 Supervisor [place]) buspirone 10 mg tablet 20 mg (2 x 10 mg) PO BID 30 days 11/29/23 #120 tabs blood-glucose meter #1 ea 12/11/23 omeprazole magnesium 20 mg 20 mg PO DAILY #20 tabs 01/16/24 tablet,delayed release (Prilosec OTC) aspirin 81 mg tablet,delayed See Rx Instructions .Route 01/20/24 release .COMPLEX #90 tabs polyethylene glycol 3350 17 See Rx Instructions .Route 01/27/24 gram/dose oral powder .COMPLEX #510 grams lancets #200 ea 02/11/24 blood-glucose meter (OneTouch #1 ea 03/09/24 Ultra2 Meter) Held on 11/16/24. Instructions: Patient needs appointment clopidogrel 75 mg tablet 75 mg PO DAILY #30 tabs 03/09/24 pen needle, diabetic 31 gauge x #200 ea 03/09/24 5/16 (TechLITE Pen Needle) insulin lispro 100 unit/mL See Rx Instructions SUBCUT QAM #15 05/28/24 subcutaneous pen mL carvedilol 6.25 mg tablet See Rx Instructions .Route 06/22/24 .COMPLEX #180 tabs nitroglycerin 0.4 mg sublingual See Rx Instructions .Route 07/21/24 tablet .COMPLEX #25 tabs atorvastatin 80 mg tablet See Rx Instructions .Route 10/12/24 .COMPLEX #30 tabs insulin glargine 100 unit/mL (3 See Rx Instructions .Route 10/20/24 mL) subcutaneous pen (Lantus .COMPLEX #15 mL Solostar U-100 Insulin) empagliflozin 10 mg tablet See Rx Instructions .Route 12/21/24 (Jardiance) .COMPLEX #30 tabs isosorbide mononitrate 30 mg See Rx Instructions .Route 02/03/25 tablet,extended release 24 hr .COMPLEX #30 tabs blood-glucose sensor (Dexcom G7 #3 ea 03/10/25 Sensor device) Allergies Allergy/AdvReac Type Severity Reaction Status Date / Time ranolazine (From Ranexa) Allergy ADR-Blurry Verified 02/09/25 14:28 Vision PFSH ED PFSH: Medical History (Updated 03/14/25 @ 04:44 by Simba Huggins DO) Abnormal cardiovascular stress test Bed bug bite Hypertension Chest pain CAD (coronary artery disease) STEMI (ST elevation myocardial infarction) Family history of premature CAD Nicotine dependence, cigarettes, with unspecified nicotine-induced disorders Osteoarthritis of left knee High cholesterol delivery delivered Diabetes type 2, uncontrolled Hypercholesteremia Family history of early CAD Surgical History Hx of CABG History of delivery x 2 H/O tubal ligation Family History Father Diabetes Heart disease Mother Diabetes COPD (chronic obstructive pulmonary disease) Emphysema lung Heart disease Kidney failure Arthritis Social History Smoking and tobacco/nicotine status: never used tobacco/nicotine Quit status (tobacco/nicotine): has quit using Year quit tobacco: 10/16/2022 Former quit date comment: 1.5ppd X 27 years Second hand smoke exposure: No Substance/Drug Use: never Adopted: No Caregiver/support person: No Lives independently: Yes Housing: House Marital status: Number of children: 2 Highest education level completed: 9th Grade service: No Physical Exam Const: COMMON NORMALS: no acute distress GENERAL APPEARANCE: cooperative; not ill appearing and not frail appearing HENMT: COMMON NORMALS: normocephalic, atraumatic and Normal external nose present HEAD & SCALP: normocephalic and atraumatic FACE & SINUS: normal facial exam and face symmetric NOSE: Normal external nose present Eye: COMMON NORMALS: Equal, round and reactive pupils present and EOMs intact bilaterally PUPIL: Yes Equal, round and reactive pupils present Neck/C-Spine: GENERAL: Yes trachea midline Chest: CHEST: Yes Symmetrical chest wall rise Resp: COMMON NORMALS: normal respiratory effort, No retractions, No use of accessory muscles and clear to auscultation bilaterally AUSCULTATION: clear to auscultation bilaterally Cardio: COMMON NORMALS: regular rate and regular rhythm RATE: regular rate RHYTHM: regular rhythm GI: COMMON NORMALS: Normal to inspection, nondistended, normoactive bowel sounds present Extremity: COMMON NORMALS: no pedal edema Neuro: LORENZO COMA SCALE: document GCS findings Lorenzo coma scale eye opening: Spontaneous Lorenzo coma scale verbal response: Orientated [place] coma scale motor response: Obey commands [place] coma scale total score: 15 SENSORY EXAM: Yes extremities (intact) Psych: COMMON NORMALS: speech normal SPEECH: Yes normal speech Skin: COMMON NORMALS: no rashes or lesions noted GENERAL SKIN EXAM: no rashes or lesions noted Course Vital Signs: Vital signs: Vital Signs Temperature 98 F 03/14/25 01:53 Pulse Rate 75 03/14/25 03:39 Respiratory Rate 18 03/14/25 03:39 Blood Pressure 151/80 03/14/25 03:39 Pulse Oximetry 98 03/14/25 03:39 Oxygen Delivery Me thod Room Air 03/14/25 03:39 MDM - Chest Pain Medical Decision Making Patient had a catheterization in 06/09 with stable disease. Vitals are stable here. Pain is improved after morphine. CBC is normal. BMP is nonactionable. Chest x-ray is negative. EKG shows a sinus rhythm with normal axis and intervals and a rate of 70. No ST or T changes. First troponin is nondetectable. Second troponin nondetectable. Pain is improved. She wants to go home. She will be allowed discharge. She is stable at this point. To return for return of or worsening symptoms. Lab Data 03/14/25 02:24 03/14/25 02:24 Radiology Impressions Chest X-Ray 03/14/25 01:55 IMPRESSION: No acute intrathoracic abnormality. Laboratory Results WBC 8.45 10^3/uL (3.29-11.43) 03/14/25 02:24 RBC 5.11 10^6/uL (3.85-5.65) 03/14/25 02:24 Hgb 14.10 g/dL (11.27-16.99) 03/14/25 02:24 Hct 43.0 % (36-47) 03/14/25 02:24 MCV 84.1 fl (85-98) L 03/14/25 02:24 MCH 27.6 pg (27-33) 03/14/25 02:24 MCHC 32.8 g/dL (30-55) 03/14/25 02:24 RDW 12.4 % (12.1-15.1) 03/14/25 02:24 Plt Count 336 10^3/cmm (157-399) 03/14/25 02:24 MPV 9.3 fL (7.4-10.4) 03/14/25 02:24 Neut % (Auto) 52.6 % 03/14/25 02:24 Lymph % (Auto) 38.1 % 03/14/25 02:24 Eagle % (Auto) 6.3 % 03/14/25 02:24 Eos % (Auto) 1.9 % 03/14/25 02:24 Baso % (Auto) 0.6 % 03/14/25 02:24 Neut # (Auto) 4.45 10^3/uL (1.8-7.7) 03/14/25 02:24 Lymph # (Auto) 3.2 10^3/uL (0.8-4.8) 03/14/25 02:24 Eagle # (Auto) 0.5 10^3/uL (0.2-0.9) 03/14/25 02:24 Eos # (Auto) 0.2 10^3/uL (0.0-0.8) 03/14/25 02:24 Baso # (Auto) 0.1 10^3/uL (0.0-0.1) 03/14/25 02:24 Nucleated RBC % (auto) 0 % 03/14/25 02:24 Nucleated RBCs # 0.0 /100WBC 03/14/25 02:24 PT 12.90 SECONDS (12.1-14.9) 03/14/25 02:24 INR 0.91 (0.8-1.2) 03/14/25 02:24 APTT 24.7 SECONDS (23.9-36.7) 03/14/25 02:24 Sodium 135 mmol/L (136-145) L 03/14/25 02:24 Potassium 3.7 mmol/L (3.5-5.1) 03/14/25 02:24 Chloride 97 mmol/L (98-107) L 03/14/25 02:24 Carbon Dioxide 22 mmol/L (22-29) 03/14/25 02:24 Anion Gap 19.7 (5-19) H 03/14/25 02:24 BUN 6 mg/dL (6-20) 03/14/25 02:24 Creatinine 0.4 mg/dL (0.5-0.9) L 03/14/25 02:24 GFR Calculation 179.6 mL/min (90-130) H 03/14/25 02:24 Glucose 173 mg/dL (65-115) H 03/14/25 02:24 Calculated Osmolality 282 mOsm/kg (285-295) L 03/14/25 02:24 Calcium 9.4 mg/dL (8.5-10.5) 03/14/25 02:24 Total Bilirubin 0.3 mg/dL (0.15-1.2) 03/14/25 02:24 AST 17 U/L (0-32) 03/14/25 02:24 ALT 22 U/L (0-33) 03/14/25 02:24 Alkaline Phosphatase 87 U/L (35-105) 03/14/25 02:24 Troponin T Baseline < 6 ng/L (0-10) 03/14/25 02:24 Troponin T 120 Minute < 6.0 ng/L (0-10) 03/14/25 04:04 Delta Troponin T 0 ABS# (0-10) 03/14/25 04:04 NT-Pro-B Natriuret Pep 48 pg/mL (0-125) 03/14/25 02:24 Total Protein 7.2 g/dL (6.6-8.7) 03/14/25 02:24 Albumin 4.2 g/dL (3.5-5.2) 03/14/25 02:24 Globulin 3.0 g/dL (1.3-4.6) 03/14/25 02:24 All radiology interpretation(s) finalized by discharge Discharge Plan Discharge Patient Disposition: Home Clinical Impression: Chest pain CAD (coronary artery disease) Qualifiers: Coronary Disease-Associated Artery/Lesion type: [place] artery [place] vs. transplanted heart: [place] heart Associated angina: with stable angina Qualified Code(s): I25.118 - Atherosclerotic heart disease of [place] coronary artery with other forms of angina pectoris Condition: Stable Prescriptions: No Action buspirone 10 mg tablet 20 mg PO BID 30 Days Qty: 120 2RF (DME) lancets Misc See Rx Instructions .Route Qty: 200 1RF Rx Instructions: As directed omeprazole magnesium [Prilosec OTC] 20 mg tablet,delayed release (DR/EC) 20 mg PO DAILY Qty: 20 0RF (DME) Dexcom G7 Sensor Device See Rx Instructions .ROUTE .COMPLEX Qty: 3 3RF Dose Instruction: DIRECTED Rx Instructions: DIRECTED (DME) Dexcom G7 Supervisor [place] Misc See Rx Instructions .Route Qty: 1 0RF Rx Instructions: As directed (DME) blood-glucose meter Kit See Rx Instructions .Route Qty: 1 0RF Rx Instructions: check sugar 4-6 times a day aspirin 81 mg tablet,delayed release (DR/EC) See Rx Instructions .ROUTE .COMPLEX Qty: 90 1RF Dose Instruction: TAKE 1 TABLET BY MOUTH EVERY DAY Rx Instructions: TAKE 1 TABLET BY MOUTH EVERY DAY polyethylene glycol 3350 17 gram/dose powder See Rx Instructions .ROUTE .COMPLEX Qty: 510 0RF Dose Instruction: TAKE 1/4 CAPFUL WITH 8OZ OF LIQUID TWICE DAILY Rx Instructions: TAKE 1/4 CAPFUL WITH 8OZ OF LIQUID TWICE DAILY clopidogrel 75 mg tablet 75 mg PO DAILY Qty: 30 0RF Rx Instructions: Must have appointment for further refills (DME) pen needle, diabetic [TechLITE Pen Needle] 31 gauge x 5/16 needle See Rx Instructions .ROUTE .COMPLEX Qty: 200 5RF Dose Instruction: USE DIRECTED Rx Instructions: USE DIRECTED (DME) blood-glucose meter [[employer] MooseTouch Ultra2 Meter] [facility] See Rx Instructions .ROUTE .COMPLEX Qty: 1 5RF Dose Instruction: CHECK SUGAR 4-6 TIMES A DAY Rx Instructions: CHECK SUGAR 4-6 TIMES A DAY insulin lispro 100 unit/mL insulin pen See Rx Instructions SUBCUT QAM MDD 45 Qty: 15 3RF Rx Instructions: 3 times a day per sliding scale subcutaneously every morning; carvedilol 6.25 mg tablet See Rx Instructions .ROUTE .COMPLEX Qty: 180 3RF Dose Instruction: TAKE 1 TABLET BY MOUTH TWICE A DAY Rx Instructions: TAKE 1 TABLET BY MOUTH TWICE A DAY nitroglycerin 0.4 mg tablet, sublingual See Rx Instructions .ROUTE .COMPLEX Qty: 25 1RF Dose Instruction: PLACE 1 TABLET UNDER TONGUE EVERY 5 MINUTES NEEDED FOR CHEST PAIN MAX 3 DOSES PER EPISODE Rx Instructions: PLACE 1 TABLET UNDER TONGUE EVERY 5 MINUTES NEEDED FOR CHEST PAIN MAX 3 DOSES PER EPISODE atorvastatin 80 mg tablet See Rx Instructions .ROUTE .COMPLEX Qty: 30 11RF Dose Instruction: TAKE 1 TABLET BY MOUTH EVERY DAY Rx Instructions: TAKE 1 TABLET BY MOUTH EVERY DAY insulin glargine [Lantus Solostar U-100 Insulin] 100 unit/mL (3 mL) insulin pen See Rx Instructions .ROUTE .COMPLEX Qty: 15 6RF Dose Instruction: INJECT 50 UNITS SUBCUTANEOUSLY DAILY Rx Instructions: INJECT 50 UNITS SUBCUTANEOUSLY DAILY Jardiance 10 mg tablet See Rx Instructions .ROUTE .COMPLEX Qty: 30 2RF Dose Instruction: TAKE 1 TABLET BY MOUTH IN THE MORNING Rx Instructions: TAKE 1 TABLET BY MOUTH IN THE MORNING isosorbide mononitrate 30 mg tablet extended release 24 hr See Rx Instructions .ROUTE .COMPLEX Qty: 30 11RF Dose Instruction: TAKE 1 TABLET BY MOUTH EVERY DAY Rx Instructions: TAKE 1 TABLET BY MOUTH EVERY DAY spironolactone 50 mg tablet 50 mg PO DAILY Discharge Orders: Discharge ED (Routine); Ordered 03/14/25 Ordered By: Simba Huggins Referrals: Zackary Clark MD [Primary Care Provider, Family Practice] - 1-3 days Patient Instructions: Chest Pain (ED), Opioid Safety, Pain Management, Patient Portal & Ama Instructions Activity Restrictions/Additional Instructions: Return for worsening chest discomfort, shortness of breath, fever, swelling of the legs, other concerning symptoms. Call your doctor Saturday for a follow-up appointment this week. Print Language: Sierra Leonean Coding Level of Care Code ED Spool Sorter for Chg Fwd
[2025-03-14 03:39] VITALS: BP 151/80; PULSE 75; RESP 18; O2SAT 98
[2025-03-14 04:31] LABS: Troponin 5 2HR < 6.0 ng/L (0-10); Troponin 5 2HR Delta 0 ABS# (0-10)
--- NOTE | 2025-03-14 10:20 | ECG_ITS ---
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 Measurements Intervals [place] Rate: 69 P: 24 [place]: 156 QRS: 36 QRSD: 98 T: 50 QT: 420 QTc: 450 Interpretive Statements SINUS RHYTHM Compared to ECG 04/09/2024 00:16:35 No significant changes Electronically Signed On 03-14-2025 14:44:43 CDT by Benito Zuniga M.D. [email or web address] [id number]
== END 2025-03-14 05:09 | disposition home or self-care (01) ==
PROVIDERS: Emergency Provider Emergency Medicine; PCP Family Medicine
DX: R07.9 Chest pain, unspecified (principal); I25.118 Atherosclerotic heart disease of native coronary artery with other forms of angina pectoris; Z79.02 Long term (current) use of antithrombotics/antiplatelets; Z79.82 Long term (current) use of aspirin; Z79.4 Long term (current) use of insulin; Z87.891 Personal history of nicotine dependence; E11.9 Type 2 diabetes mellitus without complications; Z95.1 Presence of aortocoronary bypass graft
CPT/HCPCS: 36415; 71045; 80053; 83880; 84484; 85025; 85610; 85730; 93005; 99285

== ENCOUNTER → 2025-03-23 15:03 | Outpatient (BNVA) | payer MEDICAID, SELFPAY | PROVIDERS: PCP Family Medicine; Visit Provider Internal Medicine | DX: R07.89 Other chest pain (principal); I25.10 Atherosclerotic heart disease of native coronary artery without angina pectoris; I10 Essential (primary) hypertension; E78.00 Pure hypercholesterolemia, unspecified; Z95.1 Presence of aortocoronary bypass graft; I25.2 Old myocardial infarction; Z87.891 Personal history of nicotine dependence; R07.9 Chest pain, unspecified | CPT/HCPCS: 99214 ==

== ENCOUNTER 2025-04-12 09:38 | Outpatient (CLI) | payer MEDICAID, SELFPAY ==
[2025-04-12 09:57] VITALS: BMI 39.1
--- NOTE | 2025-04-12 09:57 | ECG_ITS ---
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 The perfusion scan will be documented separately. DATA: Baseline heart rate was 72 beats per minute. Baseline blood pressure was 130/84 millimeters of mercury. Target heart rate was 183. Maximum heart rate achieved was 127. which was 69 % of the predicted target heart rate. Maximum blood pressure was 130/84 millimeters of mercury. The reason for ending the test was completion of the protocol. The patient did not experience any symptoms. ELECTROCARDIOGRAM: BASELINE: Sinus rhythm. Normal axis. Anteroseptal T wave inversion cannot rule out ischemia EXERCISE: After Lexiscan injection, no ST-T changes suggestive of ischemic noted. No arrhythmia noted. CONCLUSION: Please note due to baseline abnormality of the EKG specificity and sensitivity of the EKG portion of LexiScan MIBI stress test will be low 1. EKG not suggestive of ischemia 2. Lexiscan injection unremarkable. 3. Perfusion scan will be documented separately. Electronically Signed On 04-21-2025 20:27:28 PARTS FINISHER by CALVIN WALSH [email or web address] [id number]
--- NOTE | 2025-04-12 09:58 | NMCV_ITS ---
NM guanako perf SPECT r/s* [id number] Oralia Moralez Age: 39 Gender: F : 1985 Exam Date: 04/12/2025 10:52 Ordering Phys: Michael Gillette M.D ([email or web address]) Technologist: LOUISE Spears Exam Location: [facility] Indications: cp STRESS TEST Please see separate stress test report in [facility] for full findings IMAGE PROTOCOL Rest/Stress 1 Lexiscan Day Radiopharmaceutical Dose (mCi) Administration Site Administered by Rest: Tc-99m 10.6 IV LOUISE Spears Sestamibi Stress:Tc-99m 32.2 IV Nelly Alejandra, PIT MANAGER Sestamibi Rest: 12-Apr-2025 60 Discovery 630 Stress: 12-Apr-2025 30 Discovery 630 0.4mg Lexiscan. Images obtained in supine and prone position. SPECT RESULTS Technical Quality: Good Raw Data Analysis: Normal Image Corrections: No attenuation or motion correction applied Summed Stress Score: 14 Summed Rest Score: 10 Summed Difference Score: 7 PERFUSION FINDINGS Small area of fixed perfusion defect surrounded by medium sized area of severe reversibility noted in the mid to distal anterior wall suggestive of possible lesion in the LAD territory. FUNCTIONAL RESULTS (calculated via Gated SPECT) Stress Image LV EF (%): 75 Stress EDV (mL):80 TID: 1.02 Stress ESV (mL):20 FUNCTIONAL FINDINGS: Mid to distal anterior and anterolateral wall akinesis IMPRESSIONS Small area of old myocardial infarction surrounded by medium sized area of severe johanna-infarct ischemia noted in mid to distal anterior wall suggestive of possible lesion in LAD territory. This is abnormal stress test. Delaney Rudolph MD (Electronically Signed) Final Date: 18 April 2025 19:26 S
[2025-04-12] MEDS: ondansetron 2 mg/ML SDV 2 mL 4 MG IVP (11:22)
[2025-04-12] MEDS: aminophylline 25 mg/mL SDV 20 mL IVP (11:28)
[2025-04-12 11:31] VITALS: BP 128/73; PULSE 78
== END 2025-04-12 09:39 | disposition home or self-care (01) ==
LOC: CDL 09:40
PROVIDERS: PCP Family Medicine; Visit Provider Internal Medicine
DX: R07.9 Chest pain, unspecified (principal); I25.2 Old myocardial infarction; I99.8 Other disorder of circulatory system; R93.1 Abnormal findings on diagnostic imaging of heart and coronary circulation
CPT/HCPCS: 36415; 78452; 93017; 96374; A9500; J0280; J2405; J2785

== ENCOUNTER 2025-05-24 17:14 | Emergency (ER) | payer MEDICAID, SELFPAY ==
[2025-05-24 17:20] VITALS: BP 128/85; PULSE 86; TEMP 36.5; O2SAT 99
--- NOTE | 2025-05-24 17:27 | ECG_ITS ---
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 Measurements Intervals [place] Rate: 84 P: 27 ND: 161 QRS: 1 QRSD: 88 T: 60 QT: 361 QTc: 429 Interpretive Statements SINUS RHYTHM POOR R WAVE PROGRESSION, POSSIBLE ANTERIOR MYOCARDIAL INFARCTION , PROBABLY OLD [30 ms Q WAVE IN V3/V4, OR R < 0.2 mV IN V4] INTERPRETATION BASED ON A DEFAULT AGE OF 40 YEARS Compared to ECG 03/14/2025 01:45:30 POOR R WAVE PROGRESSION IS NEW Electronically Signed On 05-26-2025 22:37:57 RN OR LVN by Benito Zuniga M.D. [id number]
--- OUTSIDE RECORDS SUMMARY | 2025-05-24 21:30 | XMS_ITS | Data Portability ---
Author Organization [facility] Address [address] [address] Care Team Providers Care Professional Security Officer Name Role Phone ELLIE CLARK Primary Care Provider Assessment No assessment recorded. Plan of Treatment Reminders Order Date Submit Date Provider Last Modified By Organization Details Last Modified Time Details Appointments OFFICE VISIT 15 2024 04:45P M Ellie Clark MD Not available Not available Not available Lab CMP, serum or plasma 2023 [facility], [address] [facility], [place], [address], 03/25/2024 15:43:12 lipid panel, blood 2023 [facility], [address], [facility], [place], [address], 03/25/2024 15:43:15 CBC 2023 [facility], [address], [facility], [place], [address], 03/25/2024 15:16:01 microalbu min/creat inine, mass ratio, urine 2023 [facility], [address], [address] [place], [address], 03/27/2024 10:41:45 HbA1c (hemoglob in A1c), blood 2023 [facility] [address] [place], [address], 03/25/2024 15:19:53 Referral None recorded. Procedures None recorded. Surgeries None recorded. Imaging None recorded. Medication Orders aspirin 81 mg tablet,de layed release 2024 025 [id number], [address], [address], [place], [address], 10/23/2024 11:35:17 buspirone 10 mg tablet 2024 025 [id number], [address], [address], [place], [address], 10/23/2024 11:41:17 metoclopr amide 10 mg tablet 2024 025 [id number], [address], [address], [place], [address], 10/23/2024 11:39:21 omeprazol e 40 mg capsule,d elayed release 2023 [id number], [address], [address], [place], [address], 03/25/2024 14:33:51 buspirone 10 mg tablet 2023 [id number], [address], [address], [place], [address], 03/25/2024 14:30:30 sucralfat e 1 gram tablet 2023 [id number], [address], [address], [place], [address], 05/25/2024 12:00:35 Patient TargetsNo targets recorded. Patient InstructionsNo instructions recorded. Reason for Referral None Reported. Results Created Date Observation Date Name Description Value Unit Range Abnormal Flag Note LastModifiedBy Organization Detail LastModifiedTime 03/25/2003/25/2024 CBC WBC 9.8 x10 4.0-10 .5 Not Available [facility] [address], [place], [address], 03/25/2024 15:16:01 03/25/2003/25/2024 CBC RBC 5.07 x10 3.50-5 .50 Not Available [facility] [address], [place], [address], 03/25/2024 15:16:01 03/25/2003/25/2024 CBC HGB 14.4 g/dL 12.0-1 6.0 Not Available [facility] [address] [facility], [place], [address], 03/25/2024 15:16:01 03/25/2003/25/2024 CBC HCT 42.7 % 37.0-4 7.0 Not Available [facility] [address], [place], [address], 03/25/2024 15:16:01 03/25/2003/25/2024 CBC MCV 84.3 fL 80.0-9 9.9 Not Available [facility] [address], [place], [address], 03/25/2024 15:16:01 03/25/2003/25/2024 CBC MCH 28.5 pg 27.0-3 2.0 Not Available [facility] [address], [place], [address], 03/25/2024 15:16:01 03/25/2003/25/2024 CBC MCHC 33.8 g/dL 32.0-3 6.0 Not Available [facility] [address] [facility], [place], [address], 03/25/2024 15:16:01 03/25/2003/25/2024 CBC RDW 14.2 % 11.5-1 4.5 Not Available [facility] [address] [facility], [place], [address], 03/25/2024 15:16:01 03/25/2003/25/2024 CBC plt 313.4 x10 140.0- 451.0 Not Available [facility] [address] [facility], [place], [address], 03/25/2024 15:16:01 03/25/2003/25/2024 CBC lymphocytes % 23.1 % 20.0-5 0.0 Not Available [facility] [address] [facility], [place], [address], 03/25/2024 15:16:01 03/25/2003/25/2024 CBC granulcytes % 69.9 % 30.0-7 0.0 Not Available [facility] [address] [facility], [place], [address], 03/25/2024 15:16:01 03/25/2003/25/2024 CBC monocytes % 5.7 % 2.0-16 .0 Not Available [facility] [address] [facility], [place], [address], 03/25/2024 15:16:01 03/25/2003/25/2024 CBC granulcytes# 6.8 x10 Not Tierra ilable [facility] [address] [facility], [place], [address], 03/25/2024 15:16:01 03/25/20 24 03/25/2024 CBC lymphocytes # 2.3 x10 Not Available [facility] [address] [facility], [place], [address], 03/25/2024 15:16:01 03/25/20 24 03/25/2024 CBC monocytes # 0.6 x10 Not Avai lable [facility] [address] [facility], [place], [address], 03/25/2024 15:16:01 03/25/20 24 03/25/2024 CMP (FEMA LE) glucose 143.0 mg/dL 60.0-9 9.0 high Not Available [facility] [address] [address], [place], [address], 03/25/2024 15:43:12 03/25/20 24 03/25/2024 CMP (FEMA LE) BUN (blood urea nitrogen) 14.0 mg/dL 10.0-2 6.0 Not Available [facility] [address] [address], [place], [address], 03/25/2024 15:43:12 03/25/20 24 03/25/2024 CMP (FEMA LE) creatinine (serum) 0.6 mg/dL 0.4-1. 5 Not Available [facility] [address] [address], [place], [address], 03/25/2024 15:43:12 03/25/20 24 03/25/2024 CMP (FEMA LE) BUN/creatini ne ratio 24.14 ratio Not Available [facility] [address] [address], [place], [address], 03/25/2024 15:43:12 03/25/20 24 03/25/2024 CMP (FEMA LE) eGFR calculated 125.0 Not Available [facility] [address] [facility], [place], [address], 03/25/2024 15:43:12 03/25/20 24 03/25/2024 CMP (FEMA LE) total protein 8.0 g/dL 6.0-8. 5 Not Available [facility] [address] [facility], [place], [address], 03/25/2024 15:43:12 03/25/20 24 03/25/2024 CMP (FEMA LE) total bilirubin 0.5 mg/dL 0.2-1. 3 Not Available [facility] [address] [facility], [place], [address], 03/25/2024 15:43:12 03/25/20 24 03/25/2024 CMP (FEMA LE) albumin 4.8 g/dL 3.5-5. 5 Not Available [facility] [address] [facility], [place], [address], 03/25/2024 15:43:12 03/25/20 24 03/25/2024 CMP (FEMA LE) globulin 3.2 calc Not Available [facility] [address] [facility] [address], [place], [address], 03/25/2024 15:43:12 03/25/20 24 03/25/2024 CMP (FEMA LE) AST (SGOT) 44.0 U/L 0.0-46 .0 Not Available [facility] [address] [facility], [place], [address], 03/25/2024 15:43:12 03/25/20 24 03/25/2024 CMP (FEMA LE) altv (SGPT) 26.0 U/L 13.0-6 9.0 normal Not Available [facility] [address] [facility] [facility], [place], [address], 03/25/2024 15:43:12 03/25/20 24 03/25/2024 CMP (FEMA LE) A/G ratio 1.5 ratio Not Available [facility] [address] [facility], [place], [address], 03/25/2024 15:43:12 03/25/20 24 03/25/2024 CMP (FEMA LE) ALP phos 66.0 U/L 30.0-1 40.0 normal Not Available [facility] [address] [facility], [place], [address], 03/25/2024 15:43:12 03/25/20 24 03/25/2024 CMP (FEMA LE) calcium 10.0 mg/dL 8.4-10 .5 Not Available [facility] [address] [facility], [place], [address], 03/25/2024 15:43:12 03/25/20 24 03/25/2024 CMP (FEMA LE) sodium 140.0 mmol/ L 136.0- 145.0 Not Available [facility] [address] [facility], [place], [address], 03/25/2024 15:43:12 03/25/20 24 03/25/2024 CMP (FEMA LE) potassium 3.8 mmol/ L 3.5-5. 1 Not Available [facility] [address] [facility], [place], [address], 03/25/2024 15:43:12 03/25/20 24 03/25/2024 CMP (FEMA LE) chloride 105.0 mmol/ L 98.0-1 10.0 normal Not Available [facility] [address] [facility], [place], [address], 03/25/2024 15:43:12 03/25/20 24 03/25/2024 CMP (FEMA LE) C02 25.0 mmol/ L 22.0-3 1.0 Not Available [facility] [address] [facility], [place], [address], 03/25/2024 15:43:12 03/25/20 24 03/25/2024 CMP (FEMA LE) anion gap 10.0 calc Not Available [facility] [address] [facility], [place], [address], 03/25/2024 15:43:12 03/25/2003/25/2024 CMP (FEMA LE) osmolality 291.8 calc Not Available [facility] [address] [facility], [place], [address], 03/25/2024 15:43:12 03/25/20 24 03/25/2024 LIPID PROFI LE (FEMA LE) cholesterol 133.0 mg/dL 0.0-20 0.0 Not Available [facility] [address] [facility], [place], [address], 03/25/2024 15:43:15 03/25/20 24 03/25/2024 LIPID PROFI LE (FEMA LE) trig 193.0 mg/dL 0.0-15 0.0 high Not Available [facility] [address] [facility], [place], [address], 03/25/2024 15:43:15 03/25/20 24 03/25/2024 LIPID PROFI LE (FEMA LE) HDL - direct 26.0 mg/dL >40.[address] [facility] [address] [facility], [place], [address], 03/25/2024 15:43:15 03/25/20 24 03/25/2024 LIPID PROFI LE (FEMA LE) VLDL - direct 38.6 mg/dL Not Available [facility] [address] [facility] [address], [place], [address], 03/25/2024 15:43:15 03/25/2003/25/2024 LIPID PROFI LE (FEMA LE) LDL - direct 68.4 mg/dL 0.0-13 0.0 Not Available [facility] [address], [place], [address], 03/25/2024 15:43:15 03/25/20 24 03/27/2024 ALBUM IN, RANDO M URINE W/CRE ATINI NE creatinine, random urine 74 mg/dL 20-275 normal Not Available [facility] [address] [place], [address], 03/27/2024 10:41:45 03/25/20 24 03/27/2024 ALBUM IN, RANDO M URINE W/CRE ATINI NE albumin, urine 0.6 mg/dL see note: normal Refer ence Range : Refer ence Range Not estab lishe d Not Available [facility] [address] [place], [address], 03/27/2024 10:41:45 03/25/20 24 03/27/2024 ALBUM IN, [...] a diagn ostic categ ory. Not Available [facility] [address] [place], [address], 03/27/2024 10:41:45 03/25/20 24 03/25/2024 HbA1c (hemo globi n A1c), blood HbA1c 6.8 Not Available [facility] [address] [place], [address], 03/25/2024 14:34:52 Result Notes None recorded. Problems Name Problem SNOMED Code Status Onset Date Resolution Date Notes Provider Name and Address Organization Details Recorded Time Anxiety 69418132 Active 2023 PEBBLES castelan [facility] 20:56:13 Gastroesophage al reflux disease 071676151 Active 2023 PEBBLES castelan [facility] 20:56:16 Peptic ulcer 79869845 Active 2023 PEBBLES castelan [facility] 5 20:56:32 Multi vessel coronary artery disease 502184604 Active 2023 PEBBLES castelan [facility] 20:56:20 Gastroparesis due to diabetes mellitus 095248253 Active 2024 Ellie Clark MD [address] [place] [address], [phone], [facility] 11:37:21 Problem Notes None recorded. Procedures Surgical History Date Name Laterality Status Provider Name and Address Organization Details Recorded Time 10/28/19 23 procedure on heart completed [facility] 03/25/2024 14:04:15 cholecystectomy completed PEBBLES DANIELSON [facility] 03/25/2024 14:13:01 Tubal Ligation completed PEBBLES DANIELSON [facility] 03/25/2024 14:13:24 Imaging Results None recorded. Procedure Notes None recorded. Medical Equipment None Reported. Allergies Allergen ID Allergen Name Allergen Category Reaction Reaction Severity Criticality Documentation Date Start Date Code Code System Note Provider Name and Address Organization Details Recorded Time 56701 ranolazin e medicatio n Not available Not available Not available 03/25/2024 49668 RxNorm [facility]ES [facility] 14:03:46 Medications Name Sig Start Date Stop [...] completed Not Available Not Available Not Available [employer] Ultra Test strips CHECK SUGAR 4-6 TIMES [...] (BMI) Body weight Body temperature Oxygen saturation Heart rate Systolic And Diastolic Provider Name and Address Organization Details Last Updated DateTime 5 170.18 cm 38.9 kg/m2 351850. 71 g 97.3 [degF] 99 % 82 /min 110/70 mm[Hg] PEBBLES DANIELSON [facility] 5 11:21:51 Date Recorded Body weight Body mass index (BMI) Body height Body temperature Oxygen saturation Heart rate Systolic And Diastolic Provider Name and Address Organization Details Last Updated DateTime 4 926029. 64 g 36.3 kg/m2 170.18 cm 97.3 [degF] 97 % 98 /min 124/80 mm[Hg] PEBBLES DANIELSON [facility] 4 14:15:03 Date Recorded Body height Body mass index (BMI) Body weight Oxygen saturation Respiratory rate Body temperature Heart rate Systolic And Diastolic Provider Name and Address Organization Details Last Updated DateTime 4 170.18 cm 36.6 kg/m2 977181. 61 g 98 % 18 /min 98.3 [degF] 84 /min 100/68 mm[Hg] Jenna Nino [facility] 4 11:56:48 Social History Question Answer Notes LastModified by EDUS Details LastModified Time Tobacco Smoking Status Former Smoker [facility]BLES DANIELSON [facility] 03/25/2024 14:12:23 What Is Your Level [...] Functional Status Question Answer Note LastModified by EDUS Details LastModified Time Do you use any [...] ICD10 Code Diagnosis IMO Codes Diagnosis Note [id number] Ellie Clark MD [facility] ([facility]) [address] [place] [phone] 03/25/2024 13:55:17 03/25/2024 14:41:13 Anxiety 36738151 F41.9 Refill provided for his buspirone. Gastroesop hageal reflux disease 314760685 K21.9 Peptic ulcer 77579566 K2 7.9 Concerned about peptic ulcer disease given her NSAID use and increasing pain and morning nausea. Will increase the dose of her omeprazole to 40 mg as well as start sucralfate . Also recommend the patient's stop meloxicam at this time. Multi vess el coronary artery disease 802881224 I25.10 Continue to follow with Dr. Gillette. Patient denies any active chest pain but has been fatigued. Type 2 maría betes mellitus 26598891 Z79.4 Patient's blood sugar has been managed well on current medication s. No changes at this time, however we will obtain an A1c today. Will also check routine labs and lipid panel. [id number] Ellie Clark MD [facility] ([facility]) [address] [place] [phone] 05/25/2024 11:35:55 05/25/2024 12:51:21 Multi vessel coronary artery disease 200227752 I25.10 Patient has done well since her cardiac cath. The patient has appointmen t with Dr. Gillette today. Type 2 maría betes mellitus 80252973 Z79.[address] Workman about diabetic supplies and medication s. If continued trouble is noted then refills will provided by us to help the patient maintain control. [id number] Ellie Clark MD [facility] ([facility]) [address] [place] [phone] 10/23/2024 10:58:36 10/23/2024 13:15:14 Anxiety 76811723 F41.9 Will increase her buspirone to 3 times daily and see if this improves her anxiety throughout the day. Multi vess el coronary artery disease 725096321 I25.10 Continue aspirin and cardiology follow-up. Gastropare sis due to diabetes mellitus 526799435 E11.43 K31.84 [id number] Concerned that the patient may have diabetic [...] Name 10/20/2024 1 [place] Oralia Moralez [id number] Oralia Moralez 10/20/2024 [place] [facility] Oralia Moralez [id number] Oralia Moralez Notes Date Note Type Note [...] lab work as well as her A1c. Ellie Clark MD [address] [place] [address], [phone], [facility] 03/26/2024 14:56:42 05/25/2024 text/html ROS as noted [...] sugars are doing well. Ellie Clark MD [address] [place] [address], [phone], [facility] 05/25/2024 12:34:35 10/23/2024 text/html Pt is [...] been struggling with anxiety. Ellie Clark MD [address] [place] [address], [phone], [facility] 10/25/2024 20:28:11 OBGyn Episode No OBEpisode recorded.
== END 2025-05-24 20:01 | disposition left against medical advice (07) ==
PROVIDERS: Emergency Provider Family Medicine; PCP Family Medicine
DX: Z53.21 Procedure and treatment not carried out due to patient leaving prior to being seen by health care provider (principal); R07.9 Chest pain, unspecified; R51.9 Headache, unspecified
CPT/HCPCS: 93005